=== PATIENT | female | born 1935 | race Caucasian/White ===

== ENCOUNTER 2020-06-09 13:01 | Outpatient (REF) | payer MEDICARE, MEDICAID, SELFPAY | END 2020-06-09 13:02 | disposition home or self-care (01) | LOC: HO.RESP 13:01 | PROVIDERS: PCP Internal Medicine; Visit Provider Internal Medicine | DX: Z13.89 Encounter for screening for other disorder (principal) ==

== ENCOUNTER 2020-06-09 14:13 | Outpatient (REF) | payer MEDICARE, MEDICAID, SELFPAY ==
--- NOTE | 2020-06-09 14:50 | XR_ITS ---
EXAMINATION: XR CHEST CLINICAL INFORMATION: COPD. Atrial fibrillation. Hypertension. COMPARISON: Previous chest x-rays most recent July 2018 TECHNIQUE: 2 views of the chest were obtained. FINDINGS: The cardiac and mediastinal contours are stable. The lungs are clear. The previously identified left lower lobe pneumonia has resolved. There is no pleural effusion or pneumothorax. There is increased thoracic kyphosis and degenerative changes of the spine. There is an old T11 vertebral body compression fracture that appears unchanged. XR/XR chest 2V IMPRESSION: No evidence for acute disease in the chest.
[2020-06-09 15:16] LABS: MANUAL DIFF FLAG NO
[2020-06-09 15:24] LABS: Basophils Percent Auto 0.6 % (0-2); Eosinophils Absolute Auto 0.1 X10*3/uL (0.0-0.4); Eosinophils Percent Auto 1.7 % (0-4); Hematocrit 40.3 % (37-47); Hemoglobin 13.3 g/dl (12.0-16.0); Imm Gran Abs Auto 0.04 X10*3/uL (0.00-0.03); Imm Gran Pct Auto 0.6 % (0.0-0.4); Lymphocytes Absolute Auto 1.8 X10*3/uL (1.2-4.9); Lymphocytes Percent Auto 26.2 % (20-40); Mean Corpuscular Hemoglobin 32.2 pg (27.0-33.0); Mean Corpuscular Volume 97.6 fL (80-98); Mean Platelet Volume 11.4 fL (9.4-12.3); Monocytes Absolute Auto 0.5 X10*3/uL (0.1-1.2); Monocytes Percent Auto 7.7 % (2-11); Neutrophils Absolute Auto 4.5 X10*3/uL (2.0-8.3); Neutrophils Percent Auto 63.2 % (45-73); Platelet Count 218 X10*3/uL (160-400); Red Blood Count 4.13 X10*6/uL (4.20-5.50); Red Cell Distribution Width 12.4 % (11.0-16.0)
[2020-06-09 15:48] LABS: Alanine Aminotransferase 14 U/L (0-31); Albumin Level 4.4 g/dL (3.5-5.0); Alkaline Phosphatase 64 U/L (39-117); Anion Gap 15 (12-20); Aspartate Amino Transferase 20 U/L (5-31); Bilirubin Total 0.9 mg/dL (0.0-1.0); Blood Urea Nitrogen 12 mg/dL (9-16); C Reactive Protein 0.62 mg/dL (< or = 0.50); Calcium 9.2 mg/dL (8.4-10.2); Carbon Dioxide 29 mmol/L (22-29); Chloride 102 mmol/L (96-108); Estimated Glomerular Filt Rate 49; Glucose Random 108 mg/dL (60-115); Potassium 3.9 mmol/l (3.3-5.1); Sodium 142 mmol/L (135-145); Total Protein 7.3 g/dL (6.5-8.0)
[2020-06-09 15:54] LABS: B Type Natriuretic Peptide 64 pg/mL (<100)
[2020-06-09 16:10] LABS: Free T4 (Free Thyroxine) 0.96 ng/dL (0.71-1.85); Thyroid Stimulating Hormone 2.86 uIU/mL (0.32-4.0); Vitamin D 25-OH Total 19.7 ng/mL (>30)
[2020-06-09 16:12] LABS: Vitamin B12 236 pg/mL (200-900)
== END 2020-06-09 14:14 | disposition home or self-care (01) ==
LOC: HO.XRAY 14:13
PROVIDERS: PCP Internal Medicine; Visit Provider Internal Medicine
DX: E03.9 Hypothyroidism, unspecified (principal); R60.9 Edema, unspecified; J44.9 Chronic obstructive pulmonary disease, unspecified; I10 Essential (primary) hypertension; I48.91 Unspecified atrial fibrillation
CPT/HCPCS: 36415; 71046; 80053; 82306; 82607; 83880; 84439; 84443; 85025; 86140

== ENCOUNTER → 2020-07-13 14:59 | Outpatient (BNVA) | payer MEDICARE, MEDICAID, SELFPAY | PROVIDERS: PCP Internal Medicine; Referring Provider Internal Medicine; Visit Provider Internal Medicine | DX: I50.813 Acute on chronic right heart failure (principal); I48.0 Paroxysmal atrial fibrillation; R06.02 Shortness of breath; J44.9 Chronic obstructive pulmonary disease, unspecified; Z79.899 Other long term (current) drug therapy | CPT/HCPCS: 93005; 99202 ==

== ENCOUNTER → 2020-08-03 14:06 | Outpatient (REF) | payer MEDICARE, MEDICAID, SELFPAY ==
--- NOTE | 2020-08-03 14:13 | CA_ITS ---
Transthoracic Echocardiogram Patient (Last, First, Middle): Vane Salinas, Gender: Female Date of : 1935 Age: 85 Procedure Date: 08/03/2020 Procedure Type: Transthoracic Echocardiogram Location: OP Height: 165.1 cm Weight: 86.18 kg BSA: 1.94 m2 Heart Rate: bpm BP: 128 / 80 mmHg Security Team Lead: Referring MD: Dale Villalta MD Symptoms: R06.02 - Shortness of breath Study Quality: Fair ECG Rhythm: Sinus Conclusions: - The left ventricular systolic function is normal. The visually estimated ejection fraction is between 65-70%. - There is mild calcification of the aortic valve. - There is mild mitral annular calcification. - No obvious valvular pathology seen on this study. Findings Left Ventricle Normal left ventricular cavity size. There is mildly increased left ventricular wall thickness. The left ventricular systolic function is normal. The visually estimated ejection fraction is between 65-70%. There is no evidence of regional wall motion abnormalities. E/E prime ratio is between 8 and 15 consistent with indeterminate filling pressures. Evidence suggests grade I (mild) diastolic dysfunction. Right Ventricle Normal right ventricular cavity size and systolic function. Atria The left atrium is normal in size. The right atrium is normal in size. Aortic Valve There is a normal trileaflet aortic valve. There is mild calcification of the aortic valve. There is no aortic valve stenosis. There is no aortic valve regurgitation. Mitral Valve There is mild mitral annular calcification. There is trace mitral valve regurgitation. There is no mitral valve stenosis. Pulmonic Valve The pulmonic valve was not well visualized. Tricuspid Valve There is trace tricuspid valve regurgitation. The pulmonary artery systolic pressure is normal. Great Vessels The aortic annulus, sinuses of valsalva, and asc aorta are normal in size. Venous The inferior vena cava is normal in size and collapses greater than 50% with inspiration. Pericardium/Pleural There is no evidence of pericardial effusion. Prior Study Comparison No significant change compared to prior study dated: 07/21/2018. Recommendations, Care & Conclusions No obvious valvular pathology seen on this study. Measurements 2D Linear Measurements IVSd: 1.12 0.6-0.9/0.6-1.0 cm LVIDd: 3.85 3.9-5.3/4.2-5.9 cm LVIDd Index: 1.98 2.4-3.2/2.2-3.1 cm/m2 LVIDs: 2.29 2.0-3.6 cm LVPWd: 1.16 0.7-1.1 cm Ao Root: 2.60 2.1-3.5 cm LA Diam: 3.50 2.7-3.8/3.0-4.0 cm LAIDs Index: 1.80 1.5-2.3 cm/m2 LV Mass: 180.21 67-162/88-224 g LV Mass Index: 92.89 43-95/49-115 g/m2 LVOT Diam: 2.00 3.0+(-)1.3 cm Mitral Valve MV Pk E: 0.94 MV PK A: 1.29 MV Decel Time: 186.00 E/A: 0.70 E'Lateral: 7.29 E'Medial: 5.77 E/E' Med: 16.30 E/E' Lat: 12.90 PHT: 54.00 MVA PHT: 4.07 Decel [place]: 5.08 Aortic Valve AoV Pk Must[place]ha: 1.58 AoV Mn Mustapha: 1.08 AoV VTI: 0.37 AoV Pk Grad: 10.00 Aov Mn Grad: 5.00 BEN Cont.VTI: 1.97 LVOT LVOT Pk Mustapha: 1.02 LVOT Mn Mustapha: 0.63 LVOT VTI: 0.23 LVOT Pk Grad: 4.00 LVOT Mn Grad: 2.00 LVOT Diam: 2.00 LVOT Area: 3.14 Diastolic Function MV Pk E: 0.94 MV Pk A: 1.29 E/A: 0.70 E'Medial: 5.77 E/E' Med: 16.30 E' Laterial: 7.29 E/E' Lat: 12.90 Tricuspid Valve TR Pk Mustapha: 1.78 TR Pk Grad: 13.00 RA Press: 3.00 RVSP: 16.00 Great Vessels Aorta Ao Root-2D: 2.60 2.0-3.7 cm Pulmonary Valve PV Pk Mustapha: 1.29 Peak PV Grad: 7.00 Updated in Other Vendor System with Status of Final Dale Villalta MD electronically signed on 08/03/2020 4:16:48 PM with status of Final
== END ==
LOC: HO.CARD 14:06
PROVIDERS: Visit Provider Internal Medicine
DX: I50.813 Acute on chronic right heart failure (principal); R06.02 Shortness of breath
CPT/HCPCS: 93306

== ENCOUNTER → 2020-08-20 14:15 | Outpatient (BNVA) | payer MEDICARE, MEDICAID, SELFPAY | PROVIDERS: PCP Internal Medicine; Visit Provider Internal Medicine | DX: I50.813 Acute on chronic right heart failure (principal); I48.0 Paroxysmal atrial fibrillation | CPT/HCPCS: 99212 ==

== ENCOUNTER → 2020-11-30 15:08 | Outpatient (REF) | payer MEDICARE, MEDICAID, SELFPAY ==
--- NOTE | 2020-12-01 09:35 | ECG_ITS ---
Hook-up date: 2020-11-30 15:26:00 Duration: 45:31:00 Test Indications: PAF Medications: [id number] QRS complexes 3369 Ventricular ectopics which represent 1 % of total QRS comp. 755 Supraventricular ectopics which represent <1 % of total QRS comp. * Paced QRS complexs which represent % of total QRS comp. VENTRICULAR ECTOPY 3196 Isolated 68 Bigeminal Cycles 85 Couplets 1 Runs 3 Beats in Runs 3 Beats LONGEST at 109 BPM at 20:37:58 2020-12-01 3 Beats FASTEST at 109 BPM at 20:37:58 2020-12-01 SUPRAVENTRICULAR ECTOPY 710 Isolated 17 Couplets 2 Runs 11 Beats in Runs 7 Beats LONGEST at 170 BPM at 17:52:02 2020-12-01 7 Beats FASTEST at 170 BPM at 17:52:02 2020-12-01 HEART RATES 32 MIN at 03:53:40 2020-12-02 79 AVG 132 MAX at 00:55:19 2020-12-02 LONGEST RR 3.3680 secs at 03:53:32 2020-12-02 S-T LEVELS Channel 1 - 128 mm at 15:26:00 2020-11-30 - 128 mm at 15:26:00 2020-11-30 Channel 2 - 128 mm at 15:26:00 2020-11-30 - 128 mm at 15:26:00 2020-11-30 Channel 3 - 128 mm at 03:44:51 -- - 128 mm at 03:44:51 Basic rhythm Normal sinus rhythm Marked sinus bradycardia to 38 bpm at noght time 3.3 second pause at 3.30 am Frequent Premature ventricular complexes , 2% of total beats One 3 neat patricia of AIVR at 109 bpm No diary submitted Referred By: Dale Villalta Overread By: KELLY KHAN MD
== END ==
LOC: HO.CARD 15:08
PROVIDERS: PCP Internal Medicine; Referring Provider Internal Medicine; Visit Provider Internal Medicine
DX: I48.0 Paroxysmal atrial fibrillation (principal)
CPT/HCPCS: 93226

== ENCOUNTER 2020-12-08 14:24 | Outpatient (REF) | payer MEDICARE, MEDICAID, SELFPAY ==
[2020-12-08 15:36] LABS: MANUAL DIFF FLAG NO
[2020-12-08 15:43] LABS: Basophils Absolute Auto 0.1 X10*3/uL (0.0-0.2); Basophils Percent Auto 0.6 % (0-2); Eosinophils Absolute Auto 0.1 X10*3/uL (0.0-0.4); Eosinophils Percent Auto 1.6 % (0-4); Hematocrit 42.2 % (37-47); Imm Gran Abs Auto 0.03 X10*3/uL (0.00-0.03); Imm Gran Pct Auto 0.4 % (0.0-0.4); Lymphocytes Absolute Auto 2.1 X10*3/uL (1.2-4.9); Lymphocytes Percent Auto 25.6 % (20-40); Mean Corpuscular HGB Conc 33.2 g/dl (31.0-35.0); Mean Corpuscular Hemoglobin 31.4 pg (27.0-33.0); Mean Corpuscular Volume 94.6 fL (80-98); Mean Platelet Volume 10.8 fL (9.4-12.3); Monocytes Absolute Auto 0.7 X10*3/uL (0.1-1.2); Monocytes Percent Auto 8.2 % (2-11); Neutrophils Absolute Auto 5.1 X10*3/uL (2.0-8.3); Neutrophils Percent Auto 63.6 % (45-73); Platelet Count 269 X10*3/uL (160-400); Red Blood Count 4.46 X10*6/uL (4.20-5.50); Red Cell Distribution Width 12.1 % (11.0-16.0); White Blood Count 8.1 X10*3/uL (4.8-10.8)
[2020-12-08 16:02] LABS: Alanine Aminotransferase 15 U/L (0-31); Albumin Level 4.4 g/dL (3.5-5.0); Alkaline Phosphatase 75 U/L (39-117); Anion Gap 17 (12-20); Aspartate Amino Transferase 24 U/L (5-31); Bilirubin Total 0.6 mg/dL (0.0-1.0); Blood Urea Nitrogen 12 mg/dL (9-16); Calcium 10.1 mg/dL (8.4-10.2); Carbon Dioxide 33 mmol/L (22-29); Chloride 96 mmol/L (96-108); Estimated Glomerular Filt Rate 43; Glucose Random 109 mg/dL (60-115); Potassium 3.5 mmol/L (3.3-5.1); Sodium 142 mmol/L (135-145); Total Protein 7.9 g/dL (6.5-8.0)
[2020-12-08 16:03] LABS: Estimated Average Glucose 128 mg/dL; Hemoglobin A1c % 6.1 %
[2020-12-08 16:11] LABS: B Type Natriuretic Peptide 46 pg/mL (<100)
[2020-12-08 16:26] LABS: Free T4 (Free Thyroxine) 0.94 ng/dL (0.71-1.85); Vitamin D 25-OH Total 28.6 ng/mL (>30)
== END 2020-12-08 14:25 | disposition home or self-care (01) ==
LOC: HO.LAB 14:24
PROVIDERS: PCP Internal Medicine; Visit Provider Internal Medicine
DX: R60.9 Edema, unspecified (principal); I10 Essential (primary) hypertension; E03.9 Hypothyroidism, unspecified; E78.00 Pure hypercholesterolemia, unspecified; E55.9 Vitamin D deficiency, unspecified
CPT/HCPCS: 36415; 80053; 82306; 83036; 83880; 84439; 85025

== ENCOUNTER 2021-05-07 12:00 | Inpatient (IN) | payer MEDICARE, MEDICAID, SELFPAY ==
--- NOTE | ~2021-05-07 | US_ITS ---
EXAMINATION: US VENOUS ULTRASOUND WITH DOPPLER LOWER EXTREMITY, RIGHT CLINICAL INFORMATION: Pain, swelling, skin changes. Assess for occult DVT. COMPARISON: Right lower extremity venous ultrasound with Doppler 07/07/2014 TECHNIQUE: Ultrasound of the deep veins is performed from the hip to the lower popliteal vein using compression sonography and color and pulse Doppler assessment. Spectral analysis with color-flow imaging is performed. Patient declined interrogation of the deep veins in the lower leg. FINDINGS: There is normal venous compression and respiratory variation and augmented flow. The visualized common femoral vein, superficial femoral vein, profunda femoral vein, and popliteal vein shows no evidence of deep venous thrombosis. US/US venous duplex LE RT IMPRESSION: 1. No DVT demonstrated in the right lower extremity from common femoral vein to the popliteal vein. 2. Patient declined imaging of the lower leg. If symptoms persist, followup ultrasound in 5 days 7 days might be of value to exclude proximal propagation from a non-visualized calf vein.
--- NOTE | ~2021-05-07 | XR_ITS ---
EXAMINATION: XR CHEST CLINICAL INFORMATION: Shortness of breath COMPARISON: Chest radiographs 06/09/2020, 07/31/2018 TECHNIQUE: AP upright view of the chest was obtained. FINDINGS: There is no hyperinflation. No airspace consolidation are bronchogram. Tapering at the cardiac apex is chronic finding, consistent with areolar tissue. The heart is normal in size. The vascularity is normal. There is no pneumothorax or pleural reaction. The hilar and mediastinal contours and visualized bony structures are similar to prior studies. XR/XR chest 1V IMPRESSION: No acute intrathoracic disease.
--- NOTE | ~2021-05-07 | US_ITS ---
EXAMINATION: US VENOUS ULTRASOUND WITH DOPPLER LOWER EXTREMITY, BILATERAL CLINICAL INFORMATION: Pain and swelling COMPARISON: Previous exam most recent April 2021 TECHNIQUE: Ultrasound of the deep veins is performed from the hip to the calf with compression sonography and color and pulse Doppler assessment. Spectral analysis with color-flow imaging is performed. FINDINGS: RIGHT: There is normal venous compression and respiratory variation and augmented flow. The visualized common femoral vein, superficial femoral vein, profunda femoral vein, and popliteal vein shows no evidence of deep venous thrombosis. The patient refused imaging of the right calf. There is no significant popliteal fossa cyst. LEFT: There is normal venous compression and respiratory variation and augmented flow. The visualized common femoral vein, superficial femoral vein, profunda femoral vein, popliteal vein, and the trifurcation region shows no evidence of deep venous thrombosis. There is no significant popliteal fossa cyst. US/US venous duplex LE BI IMPRESSION: No DVT demonstrated in the bilateral lower extremity. The patient refused imaging of the right calf veins.
--- NOTE | ~2021-05-07 | CT_ITS ---
EXAMINATION: CT HEAD WITHOUT CONTRAST CLINICAL INFORMATION: Sudden hearing losss this morning. COMPARISON: CT had noncontrast 07/20/2018 TECHNIQUE: Contiguous axial imaging was performed from the skull base to vertex without intravenous administration of contrast. This CT examination was performed using dose optimization techniques as appropriate, variously including the following: *Automated exposure control *Adjustment of mA and/or kV according to patient size (this includes techniques or standardized protocols for targeted exams where dose is matched to indication/reason for exam; i.e. extremities or head) *Use of iterative reconstruction technique DLP: 631 mGy-cm FINDINGS: There is no intracranial hemorrhage, hematoma, or extra-axial fluid collection. The ventricles are normal in size. There is no hydrocephalus, edema, or mass effect. The carlos-white matter differentiation appears similar to prior exam. There is some subtle gliosis in the left periventricular white matter in retrospect similar to prior study. There is no visible acute territorial infarct or mass lesion. The calvarium appears intact. There is no pneumocephalus or orbital emphysema. The visualized sinuses and middle ears and mastoid air cells show no significant mucosal thickening. There are no air-fluid levels. CT/CT head/brain wo con IMPRESSION: No acute intracranial abnormality.
--- NOTE | 2021-05-07 12:10 | ED_ITS ---
HPI - SOB/Dyspnea General Chief Complaint: Ear Problems Stated Complaint: diff breathing Time Seen by Provider: 05/07/21 12:09 Source: patient Mode of arrival: EMS Limitations: other (Patient stating she only wants to talk to ENT ) History of Present Illness HPI Narrative: 86 YO female pmhx significant for acute on chronic right sided heart failure, COPD, hypothyrooidism, and paroxysmal atrial fibrillation not on AC therapy presents to the ED with decreased hearing to bilateral ear since 10:30 this am and shortness of breath per EMS. She is not cooperative, and screaming in the hallway that she is 86 years old, and she has been short of breath for 85 years, and she states that she uses Atrovent. She also keeps screaming that she woke up deaf. She is very uncooperative, and not answering many questions. She is not elaborating on anything, and when questioned upon review of systems, she refuses to answer any questions. Uses 2L of oxygen via nasal cannula at home. Not on blood thinners. MD elicited complaint: shortness of breath Pertinent past history: COPD and congestive heart failure Onset (ago): day(s) (1) Timing: constant Severity: moderate Exacerbating factors: exertion Relieving factors: oxygen Known history of: COPD, congestive heart failure and other (afib) Related Data Home Medications Medication Instructions Recorded Confirmed amlodipine 5 mg tablet 5 mg PO BID 07/13/20 05/07/21 furosemide 40 mg tablet 40 mg PO DAILY tab 07/13/20 05/07/21 gabapentin 300 mg capsule 300 mg PO QID cap 07/13/20 05/07/21 ipratropium bromide 17 2 puff INHALATION QID PRN 07/13/20 05/07/21 mcg/actuation HFA aerosol inhaler levothyroxine 50 mcg tablet 50 mcg PO SUTUTHSA@0630 tab 07/13/20 08/20/20 magnesium oxide 400 mg (241.3 mg 400 mg PO BEDTIME 07/13/20 05/07/21 magnesium) tablet simvastatin 10 mg tablet 10 mg PO DAILY 07/13/20 05/07/21 docusate sodium 100 mg capsule 100 mg PO BEDTIME 05/07/21 05/07/21 levothyroxine 50 mcg tablet 25 mcg PO MOWEFR@0630 05/07/21 loratadine 10 mg tablet 10 mg PO DAILY 05/07/21 05/07/21 Allergies Allergy/AdvReac Type Severity Reaction Status Date / Time adhesive tape [Adhesive Tape] Allergy Unknown RASH Verified 11/30/20 15:34 codeine [Codeine] Allergy Unknown SWELLING Verified 11/30/20 15:34 Iodinated Contrast Media Allergy Unknown UNKNOWN Verified 11/30/20 15:34 [IV Dye, Iodine Containing] iodine [Iodine] Allergy Unknown UNKNOWN Verified 11/30/20 15:34 oxycodone [Percocet] Allergy Unknown unknown Verified 11/30/20 15:34 papaya [Papaya] Allergy Unknown HIVES Verified 11/30/20 15:34 pineapple [Pineapple] Allergy Unknown HIVES Verified 11/30/20 15:34 strawberry [Hampton] Allergy Unknown HIVES Verified 11/30/20 15:34 Codeine Phosphate Allergy Unknown unknown Uncoded 11/30/20 15:34 Novocain Allergy Unknown unknown Uncoded 11/30/20 15:34 From Vicodin AdvReac Unknown NAUSEA & Uncoded 11/30/20 15:34 VOMITING Review of Systems Review of Systems: Yes all other systems are reviewed and are negative Constitutional: Constitutional: Reports no additional constitutional complaints, Denies body ache(s), Denies chills, Denies fever(s), Denies headache(s) and Denies weakness Eyes: Eyes: Reports no additional eye complaints and Denies change in vision ENT: Reports system reviewed and no additional complaints, except as documented, Denies Normal hearing present (decreased hearing to b/l ears ), Denies dizziness, Denies headache(s), Denies nasal congestion, Denies nasal discharge and Denies neck pain Cardiovascular: Cardiovascular: Reports no additional cardiovascular complaints, Denies chest pain, Reports leg edema (right lower extremity), Reports dyspnea and Reports dyspnea on exertion Respiratory: Respiratory: Reports no additional respiratory complaints, Denies cough, Reports dyspnea and Reports dyspnea on exertion Gastrointestinal: Gastrointestinal: Reports no additional gastrointestinal complaints, Denies abdominal pain, Denies diarrhea, Denies nausea and Denies vomiting Genitourinary: Genitourinary: Reports no additional female genitourinary complaints and Denies urinary incontinence Musculoskeletal: Musculoskeletal: Reports no additional musculoskeletal complaints, Denies back pain, Denies arthralgias, Denies joint swelling, Denies neck pain, Denies numbness and Denies tingling Integumentary/Breasts: Skin/Breast: Reports system reviewed and no additional complaints, except as docu and Denies rash Neurologic: Reports system reviewed and no additional complaints, except as documented, Denies Normal hearing present (decreased hearing to b/l ears ), Denies Abnormal speech present, Denies dizziness, Denies headache(s), Denies numbness, Denies tingling and Denies weakness PMFSH Past Medical History Attestation statement: The following information was validated with the patient. Source: old records reviewed and nursing notes reviewed Medical History PAF (paroxysmal atrial fibrillation) Family History Family History Father History of heart disease Mother History of heart disease Social History Social History Alcohol intake: never Patient Tobacco Use Status: Never used Tobacco Use of substances other than those prescribed or required for medical reasons: No Advance Directives: No Advance Directives Information Provided: Yes Physical Exam Vital Signs: Vital Signs: Last Vital Signs Pulse 92 05/07/21 17:52 Resp 20 05/07/21 17:52 BP 133/85 05/07/21 17:52 Pulse Ox 95 05/07/21 17:52 Body Mass Index 32.3 Const: General: cooperative, healthy appearing, comfortable and no acute distress Orientation/consciousness: patient oriented x3 Limitations: no limitations HENMT: Head: Yes normal to inspection Ears: hearing grossly normal bi laterally, TM's normal bilaterally, EAC's normal (Mild erythema noted bilaterally.) and other (Gross hearing diminished biaterally. Patient could not hear finger rub b/l) General nose exam: Normal external nose present Face and sinus: Yes normal facial exam Mouth: Normal oral and palatal mucosa present Throat: Yes posterior oropharynx normal Eyes: General: appearance normal, both eyes and all related structures Pupils: Equal, round and reactive pupils present Neck: Neck: Yes normal visual inspection Chest: Chest palpation & inspection: normal inspection of the chest Resp: Effort & Inspection: normal respiratory effort Auscultation: clear to auscultation bilaterally Cardio: Rate: regular rate Rhythm: regular rhythm Peripheral pulses: Peripheral pulses 2+ throughout GI: Inspection: Yes normal to inspection Palpation (GI): Soft to palpation and nontender Auscultation: normal bowel sounds Back/Spine/Pelvis: Thoracic/Lumbar Spine: thoracic and lumbar spine normal to inspection Skin: General skin exam: no rashes or lesions noted Neuro: General: patient oriented x3, no focal motor deficits and normal sensation to monofilament Cranial nerves: Yes Equal, round and reactive pupils present and No Normal hearing present (decreased hearing to b/l ears ) Cognition (Neuro): normal cognition Speech: No Abnormal speech present Gait exam (Neuro): Normal gait present Motor exam (neuro): 5/5 motor strength present throughout Extrem: Other: 3+ Pitting edema to right lower extremity from knee down. Overlying calor and erythema to right lower extremity. 2+ pulses equal and bilateral to lower extremities. Left lower extremity free of erythema, calor, swelling. General: No normal to inspection, Yes full ROM, Yes capillary refill normal, No no joint enlargement, Yes no pedal edema and Yes no calf tenderness Course Reevaluation(s) Reevaluation #1: CBC shows no signs of infection, no anemia, no electrolyte abn ormalities. CXR normal, CT shows no acute findings no mass, COVID negative. Time: 16:22 Reevaluation #2: Able to speak to granddaughter who is at the bedside, who states she is her primary caregiver. She states that lately her grandmother has been extremely short of breath, worse with exertion, to the point where she feels like she is going to pass out, and has to sit in a chair. She states that her grandmother has never used oxygen before, and does not use oxygen at home. She also states that her grandmother is not medication compliant, she is not taking any of her medications regularly, and she only takes them when she think she needs them. She feels as though her grandmother is not safe to go back home, and is requiring extra services at this time. Due to this story obtained from the granddaughter, if patient is hypoxic on room air, a CTA will be done to rule out pulmonary embolism. At this time the RN will ambulate the patient, and record oxygen saturations. Time: 15:34 Reevaluation #3: Respiratory ambulated patient, patient desaturated down to 84% on room air with exertion. She went back up to 96% when placed on 2 L. Given h istory obtained from granddaughter, and this finding a CTA will be ordered to rule out PE. Time: 16:35 Additional Reevaluation(s): 1650- patient states that she has anaphylaxis reaction with IV contrast. For this reason a V/Q scan has been ordered. At this time infection is suspected, blood cultures, and lactic him been ordered. As well as Zosyn. 1800- Patients BP shows signficant improvement after administration of Norvac. Spoke to Kenyatta CUENCA and told her PT case/story will wait to put in admission order until V/Q scan results. Sign out will be given to Virgie pending VQ scan. MDM - SOB/Dyspnea MDM Narrative Medical decision making narrative: 86 yo feamale pmhx significant for r. sided heart faliure,COPD, hypothyroidism and PAF presents to the ED with concerns of sudden hearing loss since 10:30 am today and worsening shortness of breath over the past few days. She uses 2 L of oxygen via nasal canula at home and has been using atrovent for SOB with little to no relief. Vital signs show HTN 171/75, however patient is agitated and she is saturating 96% on 3l. Upon physical exam lungs are clear to auscultation bilaterally, S1 and S2 are appreciated without murmurs. There is 3+ pitting edema to the right lower extremity, with overlying erythema and calor, consistent with cellulitis. Negative Homans sign bilaterally. Bilateral lower extremities 2+ pulses equal bilateral, cap refil <2 seconds. Bilateral tympanic membranes pearly white, with a good cone of light, and all visual landmarks. Bilateral ear canals with mild erythema. No pain with manipulation of bilateral external ears. To note patient had a transthoracic echo on 08/03/2020. Which showed left ventricular systolic function normal. With an ejection fraction between 65-70. It showed mild calcifications in the aortic valve. And mild mitral annular calcification. Plan- EKG, basic labs, BNP, CXR, COVID, Liver, Trop, UA, CT head/brain, US venous duplex of RT lower extremity. Will rule out DVT, ICH, intracranial mass, ACS Medical Records Attestation: I reviewed the patient's medical records. Lab Data Attestation: I reviewed the patient's lab results. Result diagrams: 05/07/21 12:53 05/07/21 12:54 Labs: Lab Results 05/07/21 05/07/21 05/07/21 Range/Units 12:53 12:54 12:54 WBC 8.6 (4.8-10.8) X10*3/uL RBC 4.20 (4.20-5.50) X10*6/uL Hgb 13.4 (12.0-16.0) g/dl Hct 39.9 (37-47) % MCV 95.0 (80-98) fL MCH 31.9 (27.0-33.0) pg MCHC 33.6 (31.0-35.0) g/dl RDW 12.7 (11.0-16.0) % Plt Count 221 (160-400) X10*3/uL MPV 10.8 (9.4-12.3) fL Immature Gran % (Auto) 0.3 (0.0-0.4) % Neut % (Auto) 68.7 (45-73) % Lymph % (Auto) 19.3 L (20-40) % Henderson % (Auto) 7.7 (2-11) % Eos % (Auto) 3.5 (0-4) % Baso % (Auto) 0.5 (0-2) % Lymph # (Auto) 1.7 (1.2-4.9) X10*3/uL Henderson # (Auto) 0.7 (0.1-1.2) X10*3/uL Eos # (Auto) 0.3 (0.0-0.4) X10*3/uL Baso # (Auto) 0.0 (0.0-0.2) X10*3/uL Abs Immat Gran (auto) 0.03 (0.00-0.03) X10*3/uL Absolute Neuts (auto) 5.9 (2.0-8.3) X10*3/uL Absolute Nucleated RBC 0.000 (0.0-0.012) X10*3/uL Nucleated RBC % (auto) 0.0 (0.0-0.2) /100WBC D-Dimer NG/ML Sodium 141 (135-145) mmol/L Potassium 3.5 (3.3-5.1) mmol/L Chloride 101 (96-108) mmol/L Carbon Dioxide 31 H (22-29) mmol/L Anion Gap 13 (12-20) BUN 14 (9-16) mg/dL Creatinine 1.41 H (0.5-1.4) mg/dL Estim Creat Clear Calc 33.1 Estimated GFR 35 Random Glucose 112 (60-115) mg/dL Lactic Acid (0.5-2.0) mmol/L Calcium 9.4 D (8.4-10.2) mg/dL Total Bilirubin 0.6 (0.0-1.0) mg/dL Direct Bilirubin 0.3 (0.0-0.5) mg/dL AST 20 (5-31) U/L ALT 10 (0-31) U/L Alkaline Phosphatase 72 (39-117) U/L Troponin I High Sens (<3.5-17.0) ng/L B-Natriuretic Peptide 45 (<100) pg/mL Total Protein 7.3 (6.5-8.0) g/dL Albumin 4.1 (3.5-5.0) g/dL COVID-19 (GABE) (Negative) COVID-19 Clin Com 05/07/21 05/07/21 05/07/21 Range/Units 12:54 15:42 15:45 WBC (4.8-10.8) X10*3/uL RBC (4.20-5.50) X10*6/uL Hgb (12.0-16.0) g/dl Hct (37-47) % MCV (80-98) fL MCH (27.0-33.0) pg MCHC (31.0-35.0) g/dl RDW (11.0-16.0) % Plt Count (160-400) X10*3/uL MPV (9.4-12.3) fL Immature Gran % (Auto) (0.0-0.4) % Neut % (Auto) (45-73) % Lymph % (Auto) (20-40) % Henderson % (Auto) (2-11) % Eos % (Auto) (0-4) % Baso % (Auto) (0-2) % Lymph # (Auto) (1.2-4.9) X10*3/uL Henderson # (Auto) (0.1-1.2) X10*3/uL Eos # (Auto) (0.0-0.4) X10*3/uL Baso # (Auto) (0.0-0.2) X10*3/uL Abs Immat Gran (auto) (0.00-0.03) X10*3/uL Absolute Neuts (auto) (2.0-8.3) X10*3/uL Absolute Nucleated RBC (0.0-0.012) X10*3/uL Nucleated RBC % (auto) (0.0-0.2) /100WBC D-Dimer NG/ML Sodium (135-145) mmol/L Potassium (3.3-5.1) mmol/L Chloride (96-108) mmol/L Carbon Dioxide (22-29) mmol/L Anion Gap (12-20) BUN (9-16) mg/dL Creatinine (0.5-1.4) mg/dL Estim Creat Clear Calc Estimated GFR Random Glucose (60-115) mg/dL Lactic Acid (0.5-2.0) mmol/L Calcium (8.4-10.2) mg/dL Total Bilirubin (0.0-1.0) mg/dL Direct Bilirubin (0.0-0.5) mg/dL AST (5-31) U/L ALT (0-31) U/L Alkaline Phosphatase (39-117) U/L Troponin I High Sens 9.5 9.0 (<3.5-17.0) ng/L B-Natriuretic Peptide (<100) pg/mL Total Protein (6.5-8.0) g/dL Albumin (3.5-5.0) g/dL COVID-19 (GABE) Negative (Negative) COVID-19 Clin Com See Note 05/07/21 05/07/21 Range/Units 17:24 17:24 WBC (4.8-10.8) X10*3/uL RBC (4.20-5.50) X10*6/uL Hgb (12.0-16.0) g/dl Hct (37-47) % MCV (80-98) fL MCH (27.0-33.0) pg MCHC (31.0-35.0) g/dl RDW (11.0-16.0) % Plt Count (160-400) X10*3/uL MPV (9.4-12.3) fL Immature Gran % (Auto) (0.0-0.4) % Neut % (Auto) (45-73) % Lymph % (Auto) (20-40) % Henderson % (Auto) (2-11) % Eos % (Auto) (0-4) % Baso % (Auto) (0-2) % Lymph # (Auto) (1.2-4.9) X10*3/uL Henderson # (Auto) (0.1-1.2) X10*3/uL Eos # (Auto) (0.0-0.4) X10*3/uL Baso # (Auto) (0.0-0.2) X10*3/uL Abs Immat Gran (auto) (0.00-0.03) X10*3/uL Absolute Neuts (auto) (2.0-8.3) X10*3/uL Absolute Nucleated RBC (0.0-0.012) X10*3/uL Nucleated RBC % (auto) (0.0-0.2) /100WBC D-Dimer 492 NG/ML Sodium (135-145) mmol/L Potassium (3.3-5.1) mmol/L Chloride (96-108) mmol/L Carbon Dioxide (22-29) mmol/L Anion Gap (12-20) BUN (9-16) mg/dL Creatinine (0.5-1.4) mg/dL Estim Creat Clear Calc Estimated GFR Random Glucose (60-115) mg/dL Lactic Acid 1.4 (0.5-2.0) mmol/L Calcium (8.4-10.2) mg/dL Total Bilirubin (0.0-1.0) mg/dL Direct Bilirubin (0.0-0.5) mg/dL AST (5-31) U/L ALT (0-31) U/L Alkaline Phosphatase (39-117) U/L Troponin I High Sens (<3.5-17.0) ng/L B-Natriuretic Peptide (<100) pg/mL Total Protein (6.5-8.0) g/dL Albumin (3.5-5.0) g/dL COVID-19 (GABE) (Negative) COVID-19 Clin Com Imaging Data Chest x-ray: Attestation: I personally reviewed and interpreted this imaging study as follows: Radiologist's impression: FINDINGS: There is no hyperinflation. No airspace consolidation are bronchogram. Tapering at the cardiac apex is chronic finding, consistent with areolar tissue. The heart is normal in size. The vascularity is normal. There is no pneumothorax or pleural reaction. The hilar and mediastinal contours and visualized bony structures are similar to prior studies. XR/XR chest 1V IMPRESSION: No acute intrathoracic disease. Venous US: Attestation: I personally reviewed and interpreted this imaging study as follows: Radiologist's impression: US/US venous duplex LE RT IMPRESSION: 1. No DVT demonstrated in the right lower extremity from common femoral vein to the popliteal vein.? ? 2. Patient declined imaging of the lower leg. If symptoms persist, followup ultrasound in 5 days 7 days might be of value to exclude proximal propagation from a non-visualized calf vein. ? CT scan - head: Attestation: I personally reviewed and interpreted this imaging study as follows: Radiologist's impression: FINDINGS: There is no intracranial hemorrhage, hematoma, or extra-axial fluid collection.? The ventricles are normal in size. There is no hydrocephalus, edema, or mass effect.? The carlos-white matter differentiation appears similar to prior exam. There is some subtle gliosis in the left periventricular white matter in retrospect similar to prior study.? There is no visible acute territorial infarct or mass lesion. The calvarium appears intact. There is no pneumocephalus or orbital emphysema.? The visualized sinuses and middle ears and mastoid air cells show no significant mucosal thickening. There are no air-fluid levels. CT/CT head/brain wo con IMPRESSION: No acute intracranial abnormality. ? ECG Data Attestation: I personally reviewed and interpreted this ECG as follows: ECG interpretation date: 05/07/21 ECG interpretation time: 13:01 Prior ECG tracings: available for review Interpretation: Vent rate 90, IA normal, QRS normal, QT/QTC. EKG showns NSR, no DEVIN or inversions, no t wave inversions, no acute ischemia. No significant changes when compared to 07/30/2018. Discharge Plan Discharge Clinical Impression: Hypoxia, Shortness of breath, Cellulitis Patient Disposition: Admitted As Inpatient Prescriptions: No Action docusate sodium 100 mg Capsule 100 mg PO BEDTIME RF: 0 loratadine 10 mg Tablet 10 mg PO DAILY RF: 0 levothyroxine 50 mcg tablet 25 mcg PO MOWEFR@0630 RF: 0 simvastatin 10 mg tablet 10 mg PO DAILY RF: 0 amlodipine 5 mg tablet 5 mg PO BID RF: 0 levothyroxine 50 mcg tablet 50 mcg PO SUTUTHSA@0630 RF: 0 Atrovent HFA 17 mcg/actuation HFA aerosol inhaler 2 puff inhalation QID PRN (Reason: Shortness Of Breath) RF: 0 gabapentin 300 mg capsule 300 mg PO QID RF: 0 magnesium oxide 400 mg (241.3 mg magnesium) tablet 400 mg PO BEDTIME RF: 0 furosemide 40 mg tablet 40 mg PO DAILY RF: 0
[2021-05-07 12:13] VITALS: BMI 32.3
[2021-05-07 12:28] VITALS: BP 171/75; PULSE 85; RESP 14; O2SAT 96
--- NOTE | 2021-05-07 12:37 | ECG_ITS ---
Test Reason : SOB Blood Pressure : / mmHG Vent. Rate : 090 BPM Atrial Rate : 090 BPM P-R Int : 192 ms QRS Dur : 074 ms QT Int : 372 ms P-R-T Axes : 059 014 078 degrees QTc Int : 455 ms Normal sinus rhythm Low voltage QRS RSR' or QR pattern in V1 suggests right ventricular conduction delay Abnormal ECG No significant changes seen Referred By: Marcela Sneed Electronically Signed By:JANETH MEJIA MD
[2021-05-07 12:58] LABS: MANUAL DIFF FLAG NO
[2021-05-07 13:00] LABS: Basophils Percent Auto 0.5 % (0-2); Eosinophils Absolute Auto 0.3 X10*3/uL (0.0-0.4); Eosinophils Percent Auto 3.5 % (0-4); Hematocrit 39.9 % (37-47); Hemoglobin 13.4 g/dl (12.0-16.0); Imm Gran Abs Auto 0.03 X10*3/uL (0.00-0.03); Imm Gran Pct Auto 0.3 % (0.0-0.4); Lymphocytes Absolute Auto 1.7 X10*3/uL (1.2-4.9); Lymphocytes Percent Auto 19.3 % (20-40); Mean Corpuscular HGB Conc 33.6 g/dl (31.0-35.0); Mean Corpuscular Hemoglobin 31.9 pg (27.0-33.0); Mean Platelet Volume 10.8 fL (9.4-12.3); Monocytes Absolute Auto 0.7 X10*3/uL (0.1-1.2); Monocytes Percent Auto 7.7 % (2-11); Neutrophils Absolute Auto 5.9 X10*3/uL (2.0-8.3); Neutrophils Percent Auto 68.7 % (45-73); Platelet Count 221 X10*3/uL (160-400); Red Cell Distribution Width 12.7 % (11.0-16.0); White Blood Count 8.6 X10*3/uL (4.8-10.8)
[2021-05-07 13:17] LABS: Alanine Aminotransferase 10 U/L (0-31); Albumin Level 4.1 g/dL (3.5-5.0); Alkaline Phosphatase 72 U/L (39-117); Anion Gap 13 (12-20); Aspartate Amino Transferase 20 U/L (5-31); Bilirubin Direct 0.3 mg/dL (0.0-0.5); Bilirubin Total 0.6 mg/dL (0.0-1.0); Blood Urea Nitrogen 14 mg/dL (9-16); Calcium 9.4 mg/dL (8.4-10.2); Carbon Dioxide 31 mmol/L (22-29); Chloride 101 mmol/L (96-108); Creatinine Clr Calc Pharmacy 33.1; Estimated Glomerular Filt Rate 35; Glucose Random 112 mg/dL (60-115); Potassium 3.5 mmol/L (3.3-5.1); Sodium 141 mmol/L (135-145); Total Protein 7.3 g/dL (6.5-8.0)
[2021-05-07 13:19] LABS: B Type Natriuretic Peptide 45 pg/mL (<100)
[2021-05-07 13:20] LABS: Troponin-I High Sensitivity 9.5 ng/L (<3.5-17.0)
[2021-05-07 16:15] LABS: COVID-19 Test Negative (Negative); IDNOW Serial# 9DD0AD1C
[2021-05-07 16:35] VITALS: O2SAT 84
[2021-05-07 16:57] VITALS: BP 228/105; PULSE 101
[2021-05-07] MEDS: amLODIPine Besylate 5 MG TABLET PO ×2 (16:57→20:43)
[2021-05-07] MEDS: Gabapentin 300 MG CAPSULE PO ×2 (16:58→20:46)
[2021-05-07] MEDS: Furosemide 40 MG TABLET PO (16:58)
[2021-05-07 17:41] LABS: D Dimer 492 NG/ML
[2021-05-07 17:43] LABS: Lactic Acid 1.4 mmol/L (0.5-2.0)
--- NOTE | 2021-05-07 17:43 | PHA.MEDREC ---
Pharmacy Consult ? Medication Reconciliation Pharmacy has completed the medication reconciliation. Patient reports taking levothyroxine bid, i called pharmacy and got directions, she is very confused. She hasnt filled levothyroxine since 06/06/20. Will notify
[2021-05-07] MEDS: Piperacillin Sodium/Tazobactam 3.375 GM in 0.9 % Sodium Chloride 50 ML IV (17:45)
[2021-05-07 17:52] VITALS: BP 133/85; PULSE 92; RESP 20; O2SAT 95
--- NOTE | 2021-05-07 19:19 | P.HPHOSP_ITS ---
History of Present Illness Date of Service: 05/07/21 Chief Complaint: Decreased hearing 86-year-old female with a past medical history of hypertension, hyperlipidemia, CHF, AFib-not on anticoagulation, hypothyroidism presented to the hospital with a chief complaint of shortness of breath/decreased hearing. Patient is a poor historian. Spoke to the patient's granddaughter at bedside as well. Reportedly patient called the granddaughter complaining of she cannot hear; at the time of my interview patient is able to understand my words and replies appropriately. Complains of shortness of breath. Also complains of right lower extremity pain redness and swelling which has been there for a long time; Patient denies any chest pain palpitations lightheadedness or dizziness. Denies any numbness tingling or focal weakness. Denies any nausea vomiting or diarrhea. Denies any urine symptoms. Review of all other systems is negative except mentioned above ER course: Per ER team patient on presentation has nonfocal examination noted to have 2+ pitting edema; patient on ambulation saturating at 84%; subsequently placed on nasal cannula; EKG was nonischemic; troponins x2 negative; lab showed mild elevation in creatinine; right lower extremity venous duplex negative for DVT. Plan to obtain V/Q scan-unable to do it; patient was given empiric dose of Lovenox; admitted to the hospital for further management. [facility] Medical History PAF (paroxysmal atrial fibrillation) Family History Father History of heart disease Mother History of heart disease Pertinent family history: As mentioned above Social History Alcohol intake: never Patient Tobacco Use Status: Never used Tobacco Use of substances other than those prescribed or required for medical reasons: No Advance Directives: No Advance Directives Information Provided: Yes Meds Allergies Allergy/AdvReac Type Severity Reaction Status Date / Time adhesive tape [Adhesive Tape] Allergy Unknown RASH Verified 11/30/20 15:34 codeine [Codeine] Allergy Unknown SWELLING Verified 11/30/20 15:34 Iodinated Contrast Media Allergy Unknown UNKNOWN Verified 11/30/20 15:34 [IV Dye, Iodine Containing] iodine [Iodine] Allergy Unknown UNKNOWN Verified 11/30/20 15:34 oxycodone [Percocet] Allergy Unknown unknown Verified 11/30/20 15:34 papaya [Papaya] Allergy Unknown HIVES Verified 11/30/20 15:34 pineapple [Pineapple] Allergy Unknown HIVES Verified 11/30/20 15:34 strawberry [Flora] Allergy Unknown HIVES Verified 11/30/20 15:34 Codeine Phosphate Allergy Unknown unknown Uncoded 11/30/20 15:34 Novocain Allergy Unknown unknown Uncoded 11/30/20 15:34 From Vicodin AdvReac Unknown NAUSEA & Uncoded 11/30/20 15:34 VOMITING Active Medications: Current Medications Acetaminophen (Acetaminophen 325 Mg Tablet) 650 mg PO Q6H PRN PRN Reason: Pain, Mild (Pain Scale 1-3) Amlodipine Besylate (Amlodipine Besylate 5 Mg Tablet) 5 mg PO BID [facility]; Protocol Docusate Sodium (Docusate Sodium 100 Mg Capsule) 100 mg PO BEDTIME [facility] Gabapentin (Gabapentin 300 Mg Capsule) 300 mg PO QID [facility] Ipratropium [place] (Ipratropium [place] 1 Puff/17 Mcg Inhaler) 2 puff INHALE QID PRN PRN Reason: Shortness Of Breath Loratadine (Loratadine 10 Mg Tablet) 10 mg PO DAILY [facility] Magnesium Oxide (Magnesium Oxide 400 Mg Tablet) 400 mg PO BEDTIME [facility] Melatonin (Melatonin 3 Mg Tablet) 6 mg PO BEDTIME PRN PRN Reason: Insomnia Non-Formulary Medication (Simvastatin) 10 mg PO DAILY [facility] Pharmacy Consult (Consult Rx Perform Med Rec) 1 each MISCELLANE ONCE PRN PRN Reason: Consult order Senna (Sennosides 8.6 Mg Tablet) 17.2 mg PO BEDTIME PRN PRN Reason: Constipation Sodium Chloride (0.9 % Sodium Chloride Flush 3 Ml Syringe) 3 ml IVFLUSH QSHIFT [facility] Home Medications Medication Instructions Recorded Confirmed Last Taken Type amlodipine 5 mg tablet 5 mg PO BID 07/13/20 05/07/21 05/07/21 History furosemide 40 mg tablet 40 mg PO DAILY tab 07/13/20 05/07/21 05/07/21 History gabapentin 300 mg capsule 300 mg PO QID cap 07/13/20 05/07/21 05/07/21 History ipratropium bromide 17 2 puff INHALATION QID PRN 07/13/20 05/07/21 Unknown History mcg/actuation HFA aerosol inhaler levothyroxine 50 mcg tablet 50 mcg PO LUTHERUTHSA@0630 tab 07/13/20 08/20/20 Unknown History magnesium oxide 400 mg (241.3 mg 400 mg PO BEDTIME 07/13/20 05/07/21 Unknown History magnesium) tablet simvastatin 10 mg tablet 10 mg PO DAILY 07/13/20 05/07/21 Unknown History docusate sodium 100 mg capsule 100 mg PO BEDTIME 05/07/21 05/07/21 Unknown History levothyroxine 50 mcg tablet 25 mcg PO MOWEFR@0630 05/07/21 Unknown History loratadine 10 mg tablet 10 mg PO DAILY 05/07/21 05/07/21 Unknown History Physical Exam Vital Signs and Narrative: Vital Signs: Last Vital Signs Pulse 92 05/07/21 17:52 Resp 20 05/07/21 17:52 BP 133/85 05/07/21 17:52 Pulse Ox 95 05/07/21 17:52 Body Mass Index 32.3 Gen: Appears be in no acute distress; breathing comfortably on supplemental oxygen via nasal cannula. Not in respiratory distress. Speaks in full sentences. HEENT: NCAT, Moist mucosa. Pulmonary: Coarse breath sounds CVS: Normal S1-S2 Abdomen: BS+, Soft, Nontender Extremities: Warm well perfused; 2+ pitting edema bilaterally; right lower extremity wound tender and erythematous on the like; no fluctuance or discharge noted. Neuro: Alert and awake. Grossly nonfocal Results Labs CBC and Chem 7: 05/07/21 12:53 05/07/21 12:54 Labs: Laboratory Results - last 24 hr 05/07/21 05/07/21 05/07/21 12:53 12:54 12:54 MCV 95.0 MCH 31.9 MCHC 33.6 RDW 12.7 Plt Count 221 MPV 10.8 Immature Gran % (Auto) 0.3 Neut % (Auto) 68.7 Lymph % (Auto) 19.3 L Braxton % (Auto) 7.7 Eos % (Auto) 3.5 Baso % (Auto) 0.5 Lymph # (Auto) 1.7 Braxton # (Auto) 0.7 Eos # (Auto) 0.3 Baso # (Auto) 0.0 Abs Immat Gran (auto) 0.03 Absolute Neuts (auto) 5.9 Absolute Nucleated RBC 0.000 Nucleated RBC % (auto) 0.0 D-Dimer Anion Gap 13 Estim Creat Clear Calc 33.1 Estimated GFR 35 Random Glucose 112 Lactic Acid Calcium 9.4 D Total Bilirubin 0.6 Direct Bilirubin 0.3 AST 20 ALT 10 Alkaline Phosphatase 72 Troponin I High Sens B-Natriuretic Peptide 45 Total Protein 7.3 Albumin 4.1 COVID-19 (GABE) COVID-19 Clin Com 05/07/21 05/07/21 05/07/21 12:54 15:42 15:45 MCV MCH MCHC RDW Plt Count MPV Immature Gran % (Auto) Neut % (Auto) Lymph % (Auto) Braxton % (Auto) Eos % (Auto) Baso % (Auto) Lymph # (Auto) Braxton # (Auto) Eos # (Auto) Baso # (Auto) Abs Immat Gran (auto) Absolute Neuts (auto) Absolute Nucleated RBC Nucleated RBC % (auto) D-Dimer Anion Gap Estim Creat Clear Calc Estimated GFR Random Glucose Lactic Acid Calcium Total Bilirubin Direct Bilirubin AST ALT Alkaline Phosphatase Troponin I High Sens 9.5 9.0 B-Natriuretic Peptide Total Protein Albumin COVID-19 (GABE) Negative COVID-19 [employer] Com See Note 05/07/21 05/07/21 17:24 17:24 MCV MCH MCHC RDW Plt Count MPV Immature Gran % (Auto) Neut % (Auto) Lymph % (Auto) Braxton % (Auto) Eos % (Auto) Baso % (Auto) Lymph # (Auto) Braxton # (Auto) Eos # (Auto) Baso # (Auto) Abs Immat Gran (auto) Absolute Neuts (auto) Absolute Nucleated RBC Nucleated RBC % (auto) D-Dimer 492 Anion Gap Estim Creat Clear Calc Estimated GFR Random Glucose Lactic Acid 1.4 Calcium Total Bilirubin Direct Bilirubin AST ALT Alkaline Phosphatase Troponin I High Sens B-Natriuretic Peptide Total Protein Albumin COVID-19 (GABE) COVID-19 Clin Com Imaging Radiologist's Impressions: Impressions Chest X-Ray 05/07/21 12:38 IMPRESSION: No acute intrathoracic disease. Head CT 05/07/21 12:38 IMPRESSION: No acute intracranial abnormality. Venous Duplex 05/07/21 12:38 IMPRESSION: 1. No DVT demonstrated in the right lower extremity from common femoral vein to the popliteal vein. 2. Patient declined imaging of the lower leg. If symptoms persist, followup ultrasound in 5 days 7 days might be of value to exclude proximal propagation from a non-visualized calf vein. Assessment and Plan (1) Hypoxia: Status: Acute (2) Shortness of breath: Status: Acute (3) Cellulitis: Qualifiers: Laterality: right Site of cellulitis: extremity Site of cellulitis of extremity: lower extremity Qualified Code(s): L03.115 - Cellulitis of right lower limb Status: Acute (4) Acute on chronic right heart failure: Status: Acute (5) RONAK (acute kidney injury): Status: Acute 86-year-old female with a past medical history of hypertension, hyperlipidemia, CHF, AFib-not on anticoagulation, hypothyroidism presented to the hospital with a chief complaint of shortness of breath/decreased hearing. Shortness of breath: Patient is mildly coarse breath sounds. Nebulizations p.r.n.. Troponins x2 negative. EKG nonischemic. Chest x-ray showed no Cardiopulmonary process PE was in the differential; CT was done was not on patient was allergic to contrast; tried V/Q scan-patient refused V/Q scan saying she is allergic to the dye. Patient given empiric Lovenox Will defer to the a.m. team to follow up Mild acute on chronic CHF: Patient noted 2+ pitting edema. Patient given IV Lasix in the ER. To be continued on Lasix based on renal function. chest pain: pt complained chest pain around 6:10 AM; EKG non ischemic; Sent troponins- pending. (will signout to day hospitalist) cardiology consult Mild RONAK: Monitor renal function while diuresing. Avoid nephrotoxins. Right lower extremity cellulitis: Right lower extremity venous duplex was negative for DVT. Study was incomplete as patient declined. Will repeat study Continue ceftriaxone Hypertensive urgency: Patient blood pressure at 1 time and up to 228/105; received amlodipine and is sick in the ER. Blood pressure improved to 133/85 at the time of my interview. Will continue to monitor. Continue home amlodipine. Decrease hearing: Patient uncooperative on examination. Grossly nonfocal. CT head showed no acute findings. Neurology consult for further recommendations. History of hypothyroidism: Will keep the patient on levothyroxine 50 mcg; will defer to the a.m. team to confirm the levothyroxine with the PCP and adjust accordingly. DVT prophylaxis: Patient received Lovenox in the ER. Code status: Full code-discussed with the family at bedside Quality Stroke Does the patient have a stroke diagnosis?: No VTE Prior VTE?: No VTE Risk Level:: Medical - moderate - high VTE Device Contraindication: Treatment Not Indicated VTE Drug Contraindication: Treatment Not Indicated
[2021-05-07] MEDS: cefTRIAXone sodium 1 GM in 0.9 % Sodium Chloride 50 ML IV (20:00)
--- NOTE | 2021-05-07 20:00 | PC.NURSE ---
patient refusing VQ scan, hospitalist made aware.
[2021-05-07] MEDS: Acetaminophen 325 MG TABLET 650 MG PO (20:29)
[2021-05-07 20:43] VITALS: BP 202/95; PULSE 97
[2021-05-07] MEDS: Magnesium Oxide 400 MG TABLET PO (20:43)
[2021-05-07] MEDS: Docusate Sodium 100 MG CAPSULE PO (20:43)
[2021-05-07 20:46] VITALS: BP 179/84
[2021-05-07 20:49] LABS: Troponin-I High Sensitivity 14.6 ng/L (<3.5-17.0)
[2021-05-08] VITALS: BP 179/84; PULSE 82; RESP 18; TEMP 35.9; O2SAT 95
--- NOTE | 2021-05-08 | ECG_ITS ---
Test Reason : CHEST PAIN Blood Pressure : / mmHG Vent. Rate : 080 BPM Atrial Rate : 080 BPM P-R Int : 176 ms QRS Dur : 064 ms QT Int : 382 ms P-R-T Axes : 056 002 072 degrees QTc Int : 440 ms Poor data quality Sinus rhythm with occasional Premature ventricular complexes Nonspecific ST and T wave abnormality Abnormal ECG ST more depressed Lateral leads Premature ventricular complexes are new Referred By: Generic ED Physician Electronically Signed By:JANETH MEJIA MD
[2021-05-08] MEDS: Gabapentin 300 MG CAPSULE PO (03:27)
[2021-05-08 03:51] VITALS: BP 173/74; PULSE 76; RESP 20; TEMP 36.4; O2SAT 98
[2021-05-08] MEDS: Levothyroxine Sodium 50 MCG TABLET PO (06:13)
[2021-05-08 06:14] VITALS: BP 178/80; PULSE 82; RESP 20; O2SAT 98
[2021-05-08] MEDS: Acetaminophen 325 MG TABLET 650 MG PO (06:26)
[2021-05-08 06:36] LABS: MANUAL DIFF FLAG NO
[2021-05-08 06:37] LABS: Basophils Absolute Auto 0.1 X10*3/uL (0.0-0.2); Basophils Percent Auto 0.7 % (0-2); Eosinophils Absolute Auto 0.4 X10*3/uL (0.0-0.4); Hemoglobin 15.1 g/dl (12.0-16.0); Imm Gran Abs Auto 0.03 X10*3/uL (0.00-0.03); Imm Gran Pct Auto 0.4 % (0.0-0.4); Lymphocytes Absolute Auto 2.2 X10*3/uL (1.2-4.9); Lymphocytes Percent Auto 25.7 % (20-40); Mean Corpuscular HGB Conc 33.6 g/dl (31.0-35.0); Mean Corpuscular Hemoglobin 31.7 pg (27.0-33.0); Mean Corpuscular Volume 94.3 fL (80-98); Monocytes Absolute Auto 0.8 X10*3/uL (0.1-1.2); Monocytes Percent Auto 9.1 % (2-11); Neutrophils Percent Auto 59.1 % (45-73); Platelet Count 230 X10*3/uL (160-400); Red Blood Count 4.77 X10*6/uL (4.20-5.50); Red Cell Distribution Width 12.7 % (11.0-16.0); White Blood Count 8.4 X10*3/uL (4.8-10.8)
[2021-05-08 06:51] LABS: Anion Gap 19 (12-20); Blood Urea Nitrogen 17 mg/dL (9-16); Calcium 9.5 mg/dL (8.4-10.2); Carbon Dioxide 24 mmol/L (22-29); Chloride 98 mmol/L (96-108); Creatinine Clr Calc Pharmacy 29.5; Estimated Glomerular Filt Rate 31; Glucose Random 115 mg/dL (60-115); Potassium 3.2 mmol/L (3.3-5.1); Sodium 138 mmol/L (135-145)
[2021-05-08 06:57] LABS: Troponin-I High Sensitivity 10.7 ng/L (<3.5-17.0)
--- NOTE | 2021-05-08 09:13 | PM.NEUROCN ---
History of Present Illness Data of Consult Service Date: 05/08/21 Primary Care Provider: Jayjay Sood MD [facility] Reason for consult: Hearing impairment 86 years old woman who came to hospital with complaints of shortness of breath and stating that she could not hear. She said that everything was quite. There was no recent ear pain infection or headache. There was no focal weakness or numbness or visual symptoms. Review of Systems Review of Systems: Somewhat difficult historian but she has complained of shortness of breath PMFSH Past Medical History Medical History PAF (paroxysmal atrial fibrillation) Family History Family History Father History of heart disease Mother History of heart disease Social History Social History Alcohol intake: never Patient Tobacco Use Status: Never used Tobacco Use of substances other than those prescribed or required for medical reasons: No Advance Directives: No Advance Directives Information Provided: Yes Meds Allergies Allergy/AdvReac Type Severity Reaction Status Date / Time adhesive tape [Adhesive Tape] Allergy Unknown RASH Verified 11/30/20 15:34 codeine [Codeine] Allergy Unknown SWELLING Verified 11/30/20 15:34 Iodinated Contrast Media Allergy Unknown UNKNOWN Verified 11/30/20 15:34 [IV Dye, Iodine Containing] iodine [Iodine] Allergy Unknown UNKNOWN Verified 11/30/20 15:34 oxycodone [Percocet] Allergy Unknown unknown Verified 11/30/20 15:34 papaya [Papaya] Allergy Unknown HIVES Verified 11/30/20 15:34 pineapple [Pineapple] Allergy Unknown HIVES Verified 11/30/20 15:34 strawberry [[place]] Allergy Unknown HIVES Verified 11/30/20 15:34 Codeine Phosphate Allergy Unknown unknown Uncoded 11/30/20 15:34 Novocain Allergy Unknown unknown Uncoded 11/30/20 15:34 From Vicodin AdvReac Unknown NAUSEA & Uncoded 11/30/20 15:34 VOMITING Active Medications: Current Medications Acetaminophen (Acetaminophen 325 Mg Tablet) 650 mg PO Q6H PRN PRN Reason: Pain, Mild (Pain Scale 1-3) Last Admin: 05/08/21 06:26 Dose: 650 mg Documented by: Amlodipine Besylate (Amlodipine Besylate 5 Mg Tablet) 5 mg PO BID [facility]; Protocol Last Admin: 05/07/21 20:43 Dose: 5 mg Documented by: Atorvastatin Calcium (Atorvastatin Calcium 10 Mg Tablet) 10 mg PO BEDTIME [facility] Docusate Sodium (Docusate Sodium 100 Mg Capsule) 100 mg PO BEDTIME [facility] Last Admin: 05/07/21 20:43 Dose: 100 mg Documented by: Gabapentin (Gabapentin 300 Mg Capsule) 300 mg PO QID [facility] Last Admin: 05/08/21 03:27 Dose: 300 mg Documented by: Ceftriaxone Sodium 1 gm/ (Sodium Chloride) 50 mls @ 100 mls/hr IV Q24H [facility] Last Infusion: 05/07/21 21:15 Dose: Infused Documented by: Ipratropium [place] (Ipratropium [place] 1 Puff/17 Mcg Inhaler) 2 puff INHALE QID PRN PRN Reason: Shortness Of Breath Levothyroxine Sodium (Levothyroxine Sodium 50 Mcg Tablet) 50 mcg PO DAILY@0600 [facility] Last Admin: 05/08/21 06:13 Dose: 50 mcg Documented by: Loratadine (Loratadine 10 Mg Tablet) 10 mg PO DAILY [facility] Magnesium Oxide (Magnesium Oxide 400 Mg Tablet) 400 mg PO BEDTIME [facility] Last Admin: 05/07/21 20:43 Dose: 400 mg Documented by: Melatonin (Melatonin 3 Mg Tablet) 6 mg PO BEDTIME PRN PRN Reason: Insomnia Nitroglycerin (Nitroglycerin 0.4 Mg Tab.Subl) 0.4 mg SUBLINGUAL Q5MX3 PRN PRN Reason: Chest Pain Pharmacy Consult (Consult Rx Perform Med Rec) 1 each MISCELLANE ONCE PRN PRN Reason: Consult order Senna (Sennosides 8.6 Mg Tablet) 17.2 mg PO BEDTIME PRN PRN Reason: Constipation Sodium Chloride (0.9 % Sodium Chloride Flush 3 Ml Syringe) 3 ml IVFLUSH QSHIFT [facility] Last Admin: 05/08/21 07:39 Dose: Not Given Documented by: Home Medications Medication Instructions Recorded Confirmed Last Taken Type amlodipine 5 mg tablet 5 mg PO BID 07/13/20 05/07/21 05/07/21 History furosemide 40 mg tablet 40 mg PO DAILY tab 07/13/20 05/07/21 05/07/21 History gabapentin 300 mg capsule 300 mg PO QID cap 07/13/20 05/07/21 05/07/21 History ipratropium bromide 17 2 puff INHALATION QID PRN 07/13/20 05/07/21 Unknown History mcg/actuation HFA aerosol inhaler levothyroxine 50 mcg tablet 50 mcg PO SUTUTHSA@0630 tab 07/13/20 08/20/20 Unknown History magnesium oxide 400 mg (241.3 mg 400 mg PO BEDTIME 07/13/20 05/07/21 Unknown History magnesium) tablet simvastatin 10 mg tablet 10 mg PO DAILY 07/13/20 05/07/21 Unknown History docusate sodium 100 mg capsule 100 mg PO BEDTIME 05/07/21 05/07/21 Unknown History levothyroxine 50 mcg tablet 25 mcg PO MOWEFR@0630 05/07/21 Unknown History loratadine 10 mg tablet 10 mg PO DAILY 05/07/21 05/07/21 Unknown History Physical Exam Vital Signs: Vital Signs: Last Vital Signs Temp 97.6 F 05/08/21 03:51 Pulse 82 05/08/21 06:14 Resp 20 05/08/21 06:14 BP 178/80 H 05/08/21 06:14 Pulse Ox 98 05/08/21 06:14 Body Mass Index 32.3 Neuro: Other: I saw her in emergency room and she was sleeping. I was able to wake her up. She kept her eyes closed and was resistant to examination. She was able to hear my commands and I was not speaking loudly and follow them. She did open her eyes and pupils were equal and reactive to light. There was no nystagmus. Visual breen were difficult to determine. Face was symmetrical. Tongue was midline. There was no focal weakness. Deep tendon reflexes were trace to absent with flexor plantars. Results Labs CBC & Chem 7: 05/08/21 06:33 05/08/21 06:33 Labs: Short CBC 05/07/21 05/08/21 Range/Units 12:53 06:33 WBC 8.6 8.4 (4.8-10.8) X10*3/uL Hgb 13.4 15.1 (12.0-16.0) g/dl Hct 39.9 45.0 (37-47) % Plt Count 221 230 (160-400) X10*3/uL BMP 05/07/21 05/08/21 12:54 06:33 Sodium 141 138 Potassium 3.5 3.2 L Chloride 101 98 Carbon Dioxide 31 H 24 BUN 14 17 H Creatinine 1.41 H 1.58 H Calcium 9.4 D 9.5 Liver Function 05/07/21 Range/Units 12:54 Total Bilirubin 0.6 (0.0-1.0) mg/dL Direct Bilirubin 0.3 (0.0-0.5) mg/dL AST 20 (5-31) U/L ALT 10 (0-31) U/L Alkaline Phosphatase 72 (39-117) U/L Albumin 4.1 (3.5-5.0) g/dL Noncontrast head CT revealed mild diffuse cerebral and cerebellar atrophy and [id number] chronic microvascular ischemic changes with no obvious acute lesion. Assessment and Plan (1) Deafness: Status: Acute 86 years old woman who complained of deafness but on examination there was no significant hearing impairment that I had noted. Otherwise her examination was suggestive more of behavioral or psychological illness as she was resistant to examination. I recommend an outpatient ENT evaluation to examine her external auditory canals to rule out wax and a hearing test. Overall history was not suggestive of a stroke. Procedures Date of Service Date of Service: 05/08/21
--- NOTE | 2021-05-08 09:31 | MHC.CM.PN ---
CM ATTEMPTED TO MEET WITH PT PT OUT OF ROOM CM TO RETURN
--- NOTE | 2021-05-08 09:54 | PC.NURSE ---
left for Kelley holt regarding pt's plan to leave AMA and need for transportation.
--- NOTE | 2021-05-08 10:36 | PC.NURSE ---
granddaughter has been called x 2. pt aware that taxi is a risky plan d/t difficulty ambulating and the fact that she'd be unassissted at the house. pt asked to wait patiently in the WR.
--- NOTE | 2021-05-08 10:42 | PM.DS ---
DS: Providers Provider Date of Service: 05/08/21 Date of admission: 05/07/21 19:14 Primary care physician: Jayjay Sood MD Consults: 05/07/21 19:14 Consult to Neurology Routine Consulting Provider: [facility] Reason for consultation: decreased hearing 05/08/21 06:13 Consult to Cardiology Routine Consulting Provider: Minh Womack Reason for consultation: CHf; chest pain DS: Diagnosis Discharge Diagnosis (1) Deafness: Status: Acute (2) Hypoxia: Status: Acute DS: Summary Hospital Course Hospital Course: Patient was admitted for hypoxic respiratory failure and unilateral sudden onset hearing loss. She was also noted to have some acute kidney injury, right lower extremity erythema. For her unilateral son onset hearing loss, plan was to empirically treated with steroids and to rule out [employer] lesion with MRI, however, patient did not agree to stay for workup and wanted to leave against medical advice, she expressed understanding of all the risks involved including . For her hypoxic respiratory failure this appears to have been chronic based on previous testing seen in the chart. Patient likely should be set up for chronic oxygen use. Her right lower extremity erythema is chronic and is unlikely acutely infected. For Her acute kidney injury, creatinine at discharge is 1.58, we are unable to work it up. There was some concern for pulmonary embolism, although I feel this is unlikely, plan was to get a V/Q scan which also was unable to be done. Patient was also noted to have hypertensive urgency with systolic blood pressures over the 200s, this was likely due to agitation and blood pressure became better controlled once patient was calm. No changes were made to her blood pressure meds. Time Spent with Patient Time attestation: Total time spent providing and/or coordinating discharge services: Discharge coordination time: Greater than 30 minutes Quality: Stroke Does the patient have a stroke diagnosis?: No Physical Exam Vital Signs: Vital Signs: Last Vital Signs Temp 97.6 F 05/08/21 03:51 Pulse 82 05/08/21 06:14 Resp 20 05/08/21 06:14 BP 178/80 H 05/08/21 06:14 Pulse Ox 98 05/08/21 06:14 Body Mass Index 32.3 General: AO X 3, agitated Resp: CTA bilateral, no accessory muscles used CVS: S1,S2,RRR GI: soft, non tender, non distended Neuro: motor grossly intact, alert Psych: appropriate affect, appropriate insight skin: rle tender, chronic skin changes DS: Data Data Completed and Pending Labs on day of discharge: Laboratory Results - last 24 hr 05/07/21 05/07/21 05/07/21 12:53 12:54 12:54 WBC 8.6 RBC 4.20 Hgb 13.4 Hct 39.9 MCV 95.0 MCH 31.9 MCHC 33.6 RDW 12.7 Plt Count 221 MPV 10.8 Immature Gran % (Auto) 0.3 Neut % (Auto) 68.7 Lymph % (Auto) 19.3 L [place] % (Auto) 7.7 Eos % (Auto) 3.5 Baso % (Auto) 0.5 Lymph # (Auto) 1.7 [place] # (Auto) 0.7 Eos # (Auto) 0.3 Baso # (Auto) 0.0 Abs Immat Gran (auto) 0.03 Absolute Neuts (auto) 5.9 Absolute Nucleated RBC 0.000 Nucleated RBC % (auto) 0.0 D-Dimer Sodium 141 Potassium 3.5 Chloride 101 Carbon Dioxide 31 H Anion Gap 13 BUN 14 Creatinine 1.41 H Estim Creat Clear Calc 33.1 Estimated GFR 35 Random Glucose 112 Lactic Acid Calcium 9.4 D Total Bilirubin 0.6 Direct Bilirubin 0.3 AST 20 ALT 10 Alkaline Phosphatase 72 Troponin I High Sens B-Natriuretic Peptide 45 Total Protein 7.3 Albumin 4.1 COVID-19 (GABE) COVID-[employer] 05/07/21 05/07/21 05/07/21 12:54 15:42 15:45 WBC RBC Hgb Hct MCV MCH MCHC RDW Plt Count MPV Immature Gran % (Auto) Neut % (Auto) Lymph % (Auto) [place] % (Auto) Eos % (Auto) Baso % (Auto) Lymph # (Auto) [place] # (Auto) Eos # (Auto) Baso # (Auto) Abs Immat Gran (auto) Absolute Neuts (auto) Absolute Nucleated RBC Nucleated RBC % (auto) D-Dimer Sodium Potassium Chloride Carbon Dioxide Anion Gap BUN Creatinine Estim Creat Clear Calc Estimated GFR Random Glucose Lactic Acid Calcium Total Bilirubin Direct Bilirubin AST ALT Alkaline Phosphatase Troponin I High Sens 9.5 9.0 B-Natriuretic Peptide Total Protein Albumin COVID-19 (GABE) Negative COVID-19 Clin Com See Note 05/07/21 05/07/21 05/07/21 17:24 17:24 20:22 WBC RBC Hgb Hct MCV MCH MCHC RDW Plt Count MPV Immature Gran % (Auto) Neut % (Auto) Lymph % (Auto) [place] % (Auto) Eos % (Auto) Baso % (Auto) Lymph # (Auto) [place] # (Auto) Eos # (Auto) Baso # (Auto) Abs Immat Gran (auto) Absolute Neuts (auto) Absolute Nucleated RBC Nucleated RBC % (auto) D-Dimer 492 Sodium Potassium Chloride Carbon Dioxide Anion Gap BUN Creatinine Estim Creat Clear Calc Estimated GFR Random Glucose Lactic Acid 1.4 Calcium Total Bilirubin Direct Bilirubin AST ALT Alkaline Phosphatase Troponin I High Sens 14.6 D B-Natriuretic Peptide Total Protein Albumin COVID-19 (GABE) COVID-[employer] 05/08/21 05/08/21 05/08/21 06:33 06:33 06:33 WBC 8.4 RBC 4.77 Hgb 15.1 Hct 45.0 MCV 94.3 MCH 31.7 MCHC 33.6 RDW 12.7 Plt Count 230 MPV 11.0 Immature Gran % (Auto) 0.4 Neut % (Auto) 59.1 Lymph % (Auto) 25.7 [place] % (Auto) 9.1 Eos % (Auto) 5.0 H Baso % (Auto) 0.7 Lymph # (Auto) 2.2 [place] # (Auto) 0.8 Eos # (Auto) 0.4 Baso # (Auto) 0.1 Abs Immat Gran (auto) 0.03 Absolute Neuts (auto) 5.0 Absolute Nucleated RBC 0.000 Nucleated RBC % (auto) 0.0 D-Dimer Sodium 138 Potassium 3.2 L Chloride 98 Carbon Dioxide 24 Anion Gap 19 BUN 17 H Creatinine 1.58 H Estim Creat Clear Calc 29.5 Estimated GFR 31 Random Glucose 115 Lactic Acid Calcium 9.5 Total Bilirubin Direct Bilirubin AST ALT Alkaline Phosphatase Troponin I High Sens 10.7 B-Natriuretic Peptide Total Protein Albumin COVID-19 (GABE) COVID-19 Clin Com Discharge Plan Discharge Patient Disposition: Left Against Medical Advice Discharge Diagnosis: Chronic hypoxic respiratory failure due to COPD, unilateral sudden onset hearing loss Referrals: Jayjay Sood MD [Primary Care Provider] - 1 Week Discharge Medications: No Action docusate sodium 100 mg Capsule 100 mg PO BEDTIME RF: 0 loratadine 10 mg Tablet 10 mg PO DAILY RF: 0 levothyroxine 50 mcg tablet 25 mcg PO MOWEFR@0630 RF: 0 simvastatin 10 mg tablet 10 mg PO DAILY RF: 0 amlodipine 5 mg tablet 5 mg PO BID RF: 0 levothyroxine 50 mcg tablet 50 mcg PO SUTUTHSA@0630 RF: 0 Atrovent HFA 17 mcg/actuation HFA aerosol inhaler 2 puff inhalation QID PRN (Reason: Shortness Of Breath) RF: 0 gabapentin 300 mg capsule 300 mg PO QID RF: 0 magnesium oxide 400 mg (241.3 mg magnesium) tablet 400 mg PO BEDTIME RF: 0 furosemide 40 mg tablet 40 mg PO DAILY RF: 0 Discharge Orders: Discharge Order (Routine); Ordered 05/08/21 Ordered By: Gerhard Love Stand Alone Forms: Against Medical Advice Care Plan Goals: reocvery Health Concerns: Hypoxia, hearing loss Plan of Treatment: Was unable to treat as planned as patient left against medical advice, should follow-up with primary care to set up for chronic oxygen and further workup for hearing loss Assessment: See above
--- NOTE | 2021-05-08 11:20 | MHC.CM.PN ---
PT STATING SHE IS LEAVING AMA CM ATTEMPTED TO CONTACT PTS PRIMARY CONTACT/GRAND DAUGHTER EMMETT SWEET ([phone]). A VM MESSAGE WAS LEFT REQUESTING A RETURN CALL
== END 2021-05-08 10:39 | disposition left against medical advice (07) | DRG 155 ==
LOC: HO.ED 18:09 → HO.EDOVER 19:55
PROVIDERS: Nurse Practitioner Family; Admitting Provider Hospitalist; Emergency Provider Emergency Medicine; PCP Internal Medicine; Visit Provider Internal Medicine
DX: H91.90 Unspecified hearing loss, unspecified ear (principal); N17.9 Acute kidney failure, unspecified; J96.11 Chronic respiratory failure with hypoxia; I48.0 Paroxysmal atrial fibrillation; E03.9 Hypothyroidism, unspecified; E78.5 Hyperlipidemia, unspecified; I11.0 Hypertensive heart disease with heart failure; I50.813 Acute on chronic right heart failure; I16.0 Hypertensive urgency; Z20.822 Contact with and (suspected) exposure to COVID-19; Z99.81 Dependence on supplemental oxygen; Z87.891 Personal history of nicotine dependence; Z88.5 Allergy status to narcotic agent; Z79.890 Hormone replacement therapy; Z79.899 Other long term (current) drug therapy
CPT/HCPCS: 36415; 70450; 71045; 80048; 80076; 83605; 83880; 84484; 85025; 85379; 87040; 87635; 93005; 93970; 93971; 99285; J0696; J2543

== ENCOUNTER 2022-08-05 15:47 | Outpatient (REF) | payer MEDICARE, MEDICAID, SELFPAY ==
[2022-08-05 16:05] LABS: MANUAL DIFF FLAG NO
[2022-08-05 16:15] LABS: Basophils Absolute Auto 0.1 X10*3/uL (0.0-0.2); Basophils Percent Auto 0.9 % (0-2); Eosinophils Absolute Auto 0.4 X10*3/uL (0.0-0.4); Eosinophils Percent Auto 3.7 % (0-4); Hemoglobin 14.5 g/dl (12.0-16.0); Imm Gran Abs Auto 0.03 X10*3/uL (0.00-0.03); Imm Gran Pct Auto 0.3 % (0.0-0.4); Lymphocytes Absolute Auto 2.1 X10*3/uL (1.2-4.9); Lymphocytes Percent Auto 21.3 % (20-40); Mean Corpuscular HGB Conc 33.7 g/dl (31.0-35.0); Mean Corpuscular Hemoglobin 30.9 pg (27.0-33.0); Mean Corpuscular Volume 91.5 fL (80.0-98.0); Mean Platelet Volume 10.6 fL (9.4-12.3); Monocytes Percent Auto 10.5 % (2-11); Neutrophils Absolute Auto 6.1 x10*3/uL (2.0-8.3); Neutrophils Percent Auto 63.3 % (45-73); Platelet Count 237 X10*3/uL (160-400); Red Cell Distribution Width 12.4 % (11.0-16.0); White Blood Count 9.6 X10*3/uL (4.8-10.8)
[2022-08-05 16:49] LABS: B Type Natriuretic Peptide 84 pg/mL (<100)
[2022-08-05 16:50] LABS: Alanine Aminotransferase 14 U/L (0-31); Albumin Level 4.1 g/dL (3.5-5.0); Alkaline Phosphatase 82 U/L (39-117); Anion Gap 16 (12-20); Aspartate Amino Transferase 30 U/L (5-31); Bilirubin Total 1.2 mg/dL (0.0-1.0); Blood Urea Nitrogen 10 mg/dL (9-16); Calcium 9.1 mg/dL (8.4-10.2); Carbon Dioxide 31 mmol/L (22-29); Chloride 95 mmol/L (96-108); Cholesterol 145 mg/dL; Estimated Glomerular Filt Rate 35; Glucose Random 106 mg/dL (60-115); Sodium 139 mmol/L (135-145); Total Protein 7.2 g/dL (6.5-8.0)
[2022-08-05 17:06] LABS: Free T4 (Free Thyroxine) 1.25 ng/dL (0.71-1.85); Thyroid Stimulating Hormone 4.19 uIU/mL (0.32-4.0); Vitamin D 25-OH Total 28.2 ng/mL (>30)
== END 2022-08-05 15:48 | disposition home or self-care (01) ==
LOC: HO.LAB 15:47
PROVIDERS: PCP Internal Medicine; Visit Provider Internal Medicine
DX: Z00.00 Encounter for general adult medical examination without abnormal findings (principal); E03.9 Hypothyroidism, unspecified
CPT/HCPCS: 36415; 80053; 82306; 82465; 83880; 84439; 84443; 85025

== ENCOUNTER 2022-11-11 15:32 | Outpatient (REF) | payer MEDICARE, MEDICAID, SELFPAY ==
[2022-11-11 16:00] LABS: MANUAL DIFF FLAG NO
[2022-11-11 16:11] LABS: Basophils Absolute Auto 0.1 X10*3/uL (0.0-0.2); Basophils Percent Auto 0.9 % (0-2); Eosinophils Absolute Auto 0.2 X10*3/uL (0.0-0.4); Eosinophils Percent Auto 2.7 % (0-4); Hematocrit 41.1 % (37.0-47.0); Hemoglobin 13.8 g/dl (12.0-16.0); Imm Gran Abs Auto 0.05 X10*3/uL (0.00-0.03); Imm Gran Pct Auto 0.6 % (0.0-0.4); Lymphocytes Percent Auto 24.2 % (20-40); Mean Corpuscular HGB Conc 33.6 g/dl (31.0-35.0); Mean Corpuscular Hemoglobin 30.5 pg (27.0-33.0); Mean Corpuscular Volume 90.9 fL (80.0-98.0); Mean Platelet Volume 10.4 fL (9.4-12.3); Monocytes Absolute Auto 0.9 X10*3/uL (0.1-1.2); Monocytes Percent Auto 10.4 % (2-11); Neutrophils Percent Auto 61.2 % (45-73); Platelet Count 278 X10*3/uL (160-400); Red Blood Count 4.52 X10*6/uL (4.20-5.50); Red Cell Distribution Width 12.8 % (11.0-16.0); White Blood Count 8.2 X10*3/uL (4.8-10.8)
[2022-11-11 16:35] LABS: B Type Natriuretic Peptide 122 pg/mL (<100)
[2022-11-11 16:37] LABS: Alanine Aminotransferase 11 U/L (0-31); Albumin Level 4.1 g/dL (3.5-5.0); Alkaline Phosphatase 85 U/L (39-117); Anion Gap 16 (12-20); Aspartate Amino Transferase 26 U/L (5-31); Bilirubin Total 0.9 mg/dL (0.0-1.0); Blood Urea Nitrogen 12 mg/dL (9-16); Calcium 9.5 mg/dL (8.4-10.2); Carbon Dioxide 30 mmol/L (22-29); Chloride 98 mmol/L (96-108); Estimated Glomerular Filt Rate 44; Glucose Random 117 mg/dL (60-115); Potassium 2.7 mmol/L (3.3-5.1); Sodium 141 mmol/L (135-145); Total Protein 7.6 g/dL (6.5-8.0)
[2022-11-11 16:56] LABS: Free T4 (Free Thyroxine) 1.05 ng/dL (0.71-1.85); Thyroid Stimulating Hormone 4.19 uIU/mL (0.32-4.0)
== END 2022-11-11 15:33 | disposition home or self-care (01) ==
LOC: HO.LAB 15:32
PROVIDERS: PCP Internal Medicine; Visit Provider Internal Medicine
DX: J44.9 Chronic obstructive pulmonary disease, unspecified (principal); R60.0 Localized edema; E03.9 Hypothyroidism, unspecified; N18.9 Chronic kidney disease, unspecified; R00.1 Bradycardia, unspecified
CPT/HCPCS: 36415; 80053; 83880; 84439; 84443; 85025

== ENCOUNTER 2022-12-20 15:30 | Inpatient (IN) | payer MEDICARE, MEDICAID, SELFPAY ==
--- NOTE | ~2022-12-20 | US_ITS ---
EXAMINATION: US VENOUS ULTRASOUND WITH DOPPLER LOWER EXTREMITY, BILATERAL CLINICAL INFORMATION: Hypoxia. Bilateral edema. COMPARISON: Previous exam April 2021 TECHNIQUE: Ultrasound of the deep veins is performed from the hip to the calf with compression sonography and color and pulse Doppler assessment. Spectral analysis with color-flow imaging is performed. FINDINGS: RIGHT: There is normal venous compression and respiratory variation and augmented flow. The visualized common femoral vein, superficial femoral vein, profunda femoral vein, popliteal vein, and the posterior tibial veins shows no evidence of deep venous thrombosis. Peroneal veins not well visualized. There is no significant popliteal fossa cyst. LEFT: There is normal venous compression and respiratory variation and augmented flow. The visualized common femoral vein, superficial femoral vein, profunda femoral vein, popliteal vein, and the posterior tibial veins shows no evidence of deep venous thrombosis. Peroneal veins not well visualized. There is no significant popliteal fossa cyst. Bilateral lower leg edema. US/US venous duplex LE BI IMPRESSION: No DVT demonstrated in the bilateral lower extremity. Peroneal veins not well visualized bilaterally.
--- NOTE | ~2022-12-20 | XR_ITS ---
EXAMINATION: XR CHEST CLINICAL INFORMATION: Shortness of breath. COMPARISON: Chest radiograph 05/07/2021. TECHNIQUE: Frontal view of the chest was obtained. FINDINGS: Diffuse interstitial thickening with asymmetric left upper lobe lucency, similar compared to 05/07/2021 suggesting emphysema. No new focal airspace opacity. No pleural effusion or pneumothorax. Unchanged cardiomediastinal silhouette. Chronic appearing right-sided rib deformities. XR/XR chest 1V IMPRESSION: 1. No acute cardiopulmonary findings. 2. Chronic changes suggesting emphysema. 3. Chronic appearing right-sided rib deformities.
[2022-12-20 16:45] VITALS: BP 188/75; PULSE 102; RESP 20; TEMP 35.9; O2SAT 88; BMI 34.0
--- NOTE | 2022-12-20 16:45 | ED_ITS ---
HPI - General Adult General Chief complaint: Dyspnea Stated complaint: fluid leaking from legs per dr leiva Time Seen by Provider: 12/20/22 17:51 Source: patient, RN notes reviewed and old records reviewed Mode of arrival: ambulatory Limitations: no limitations History of Present Illness HPI narrative: 87-year-old female past medical history significant for right-sided heart failure, paroxysmal AFib, COPD not on oxygen who presents for evaluation of shortness of breath and leg swelling. Patient reports that she takes Lasix 40 mg daily and has been compliant with this She states that her legs are always swollen but over the last 2 days she has had significant weeping from the left leg. She reports increased pain to the area as well Denies any chest pain. Denies any fevers but endorses ?cold sweats. ? She called her doctor and was referred to the ER due to the fluid weeping from her legs. Related Data Home Medications Medication Instructions Recorded Confirmed amlodipine 5 mg tablet 5 mg PO BID 07/13/20 05/07/21 furosemide 40 mg tablet 40 mg PO DAILY 07/13/20 05/07/21 gabapentin 300 mg capsule 300 mg PO QID 07/13/20 05/07/21 ipratropium bromide 17 2 puff inhalation QID PRN 07/13/20 05/07/21 mcg/actuation HFA aerosol inhaler Shortness Of Breath levothyroxine 50 mcg tablet 50 mcg PO SUTUTHSA@0630 07/13/20 08/20/20 magnesium oxide 400 mg (241.3 mg 400 mg PO BEDTIME 07/13/20 05/07/21 magnesium) tablet simvastatin 10 mg tablet 10 mg PO DAILY 07/13/20 05/07/21 docusate sodium 100 mg capsule 100 mg PO BEDTIME 05/07/21 05/07/21 levothyroxine 50 mcg tablet 25 mcg PO MOWEFR@0630 05/07/21 loratadine 10 mg tablet 10 mg PO DAILY 05/07/21 05/07/21 Allergies Allergy/AdvReac Type Severity Reaction Status Date / Time adhesive tape [Adhesive Tape] Allergy Unknown RASH Verified 12/20/22 16:50 codeine [Codeine] Allergy Unknown SWELLING Verified 12/20/22 16:50 Iodinated Contrast Media Allergy Unknown UNKNOWN Verified 12/20/22 16:50 [IV Dye, Iodine Containing] iodine [Iodine] Allergy Unknown UNKNOWN Verified 12/20/22 16:50 oxycodone [Percocet] Allergy Unknown unknown Verified 12/20/22 16:50 papaya [Papaya] Allergy Unknown HIVES Verified 12/20/22 16:50 pineapple [Pineapple] Allergy Unknown HIVES Verified 12/20/22 16:50 strawberry [Gardner] Allergy Unknown HIVES Verified 12/20/22 16:50 Codeine Phosphate Allergy Unknown unknown Uncoded 11/30/20 15:34 Novocain Allergy Unknown unknown Uncoded 11/30/20 15:34 From Vicodin AdvReac Unknown NAUSEA & Uncoded 11/30/20 15:34 VOMITING Review of Systems Constitutional: Constitutional: Reports as per HPI, Reports chills, Denies fatigue, Denies fever(s) and Denies headache(s) ENT: Denies headache(s) Cardiovascular: Cardiovascular: Denies chest pain, Reports pedal edema, Reports leg edema and Reports dyspnea Respiratory: Respiratory: Denies cough and Reports dyspnea Gastrointestinal: Gastrointestinal: Denies abdominal pain, Denies constipation and Denies vomiting Genitourinary: Genitourinary: Denies dysuria Neurologic: Denies headache(s) and Denies focal weakness Endocrine: Endocrine: Denies fatigue PMFSH Past Medical History Medical History COPD (chronic obstructive pulmonary disease) HTN (hypertension) Hyperlipidemia Hypothyroidism PAF (paroxysmal atrial fibrillation) Family History Family History Father History of heart disease Mother History of heart disease Social History Social History Alcohol intake: never Patient Tobacco Use Status: Former Tobacco user Smoked in Last 30 Days: No Use of substances other than those prescribed or required for medical reasons: No Advance Directives: No Advance Directives Information Provided: No Physical Exam ED Vital Signs: Vital Signs - 24 hr 12/20/22 16:45 12/20/22 18:07 Temperature 96.7 F L 98.5 F Pulse Rate 102 H 93 Respiratory Rate 20 22 H Blood Pressure 188/75 H 147/64 H Pulse Oximetry 88 L 94 Oxygen Delivery Method Room Air Nasal Cannula Oxygen Flow Rate 2.5 BMI result Body Mass Index 34.0 Const General: no acute distress, alert and awake Nutritional Appearance: well nourished and obese Orientation/consciousness: patient oriented x3 HENMT Head: Yes normocephalic and Yes atraumatic Eyes Eyelids: Yes eyelids normal Conjunctivae: conjunctivae normal Sclerae: sclerae normal Corneas: corneas normal Pupils: Equal, round and reactive pupils present EOM: EOMs intact bilaterally Neck Neck: Yes full ROM Resp Other: Patient has slightly increased respiratory effort. She is speaking in approximately 8-10 words sinuses. Mild bibasilar crackles Effort & Inspection: no audible wheezes and no cough Cardio Other: Patient has significant bilateral lower extremity edema, right greater than left. There is clear, serous drainage weeping from several spots in the left lower extremity. There is faint erythema without increased warmth of both lower extremities. Erythema is blotchy, no beefy red well-demarcated areas of erythema Rate: tachycardic Rhythm: regular rhythm GI Inspection: No distended Palpation (GI): Soft to palpation, not firm, nontender, no guarding and not rigid Auscultation: normoactive bowel sounds Skin General skin exam: elasticity normal Neuro General: patient oriented x3 Cranial nerves: Yes Equal, round and reactive pupils present and Yes Bilaterally intact EOM present Cognition (Neuro): normal cognition Course Course Course Narrative: RME: 87yo F w/PMHx RONAK, PAF, CHF c/o worsening LE edema with leakage x mos. Also reports mild SOB. reports compliance with Lasix, sent in by Dr. Leiva +b/l LE pitting edema > RLE, +bibasilar crackles, satting 88% on RA in no resp distress EKG, labs, CXR, Venous duplex US ordered Full HPI, ROS and PE to be performed by primary ED provider. Reevaluation(s) Reevaluation #1: Patient's lactic acid improved from 3.0-1.5 without any intervention. This leads me to believe that the patient's lactate was elevated from the use of her inhalers. Less likely infectious process. Will still get a CT scan chest. A D-dimer was ordered to assess risk for PE. If elevated will get a CT angiography if negative will get a CT chest without contrast. Patient's potassium 2.8 was supplemented orally. Time: 20:23 Reevaluation #2: Patient's age adjusted D-dimer will be of to 430 so she is 89 and her med count, VT is very unlikely. The patient actually does have an IV contrast allergy. Will get a CT chest without contrast Time: 21:26 Reevaluation #3: Patient adamantly refusing CT scan the chest due to claustrophobia. She declines even with premedication. The patient's granddaughter is now bedside. I discussed the patient's care with the granddaughter. The patient's g randdaughter reports that the patient's PCP, Dr. Leiva wanted the patient admitted for IV diuresis and consideration for home O2. Will discuss with the hospitalist Time: 21:48 Medications Administered Generic Name Dose Route Start Last Admin Trade Name Freq PRN Reason Stop Dose Admin Acetaminophen 650 mg 12/20/22 22:21 12/20/22 23:15 Acetaminophen 325 Mg Tablet PO 650 mg Q6H PRN Administration Pain, Mild (Pain Scale 1-3) Docusate Sodium 100 mg 12/20/22 22:21 12/20/22 23:07 Docusate Sodium 100 Mg Capsule PO 100 mg DAILY PRN Administration Constipation Enoxaparin Sodium 30 mg 12/20/22 23:00 12/20/22 23:05 Enoxaparin Sodium 30 Mg/0.3 Ml Syringe SUBCUT 30 mg Q24H TOBI Administration Cefazolin Sodium 1 gm/ Sodium 50 mls @ 100 mls/hr 12/20/22 23:00 12/20/22 23:07 Chloride IV 100 mls/hr Q12H TOBI Administration Azithromycin 500 mg/ Sodium 250 mls @ 125 mls/hr 12/21/22 00:00 12/20/22 23:06 Chloride IV 12/23/22 01:59 125 mls/hr Q24H TOBI Administration Ondansetron HCl 4 mg 12/20/22 22:21 12/20/22 23:08 Ondansetron Hcl 4 Mg/2 Ml Vial IVPUSH 4 mg Q8H PRN Administration Nausea and Vomiting Sodium Chloride 3 ml 12/21/22 00:00 12/20/22 23:06 0.9 % Sodium Chloride Flush 3 Ml Syringe IVFLUSH 3 ml QSHIFT TOBI Administration Discontinued Medications Generic Name Dose Route Start Last Admin Trade Name Freq PRN Reason Stop Dose Admin Furosemide 60 mg 12/20/22 21:48 12/20/22 23:03 Furosemide 100 Mg/10 Ml Vial IVPUSH 12/20/22 21:49 60 mg ONCE ONE Administration Protocol Methylprednisolone Sodium Succinate 125 mg 12/20/22 22:21 12/20/22 23:05 Methylprednisolone Sod Succ 125 Mg/2 Ml Vial IVPUSH 12/20/22 22:22 125 mg ONCE ONE Administration Potassium Chloride 40 meq 12/20/22 20:10 12/20/22 21:11 Potassium Chloride Er 20 Meq Tab.Er.Prt PO 12/20/22 20:11 40 meq ONCE ONE Administration Medical Decision Making Medical Decision Making MDM Narrative: 87-year-old female presents for evaluation of bilateral leg swelling. Her right leg is significantly more swollen all left and the left leg is weeping clear fl uid. The patient reports being compliant with her Lasix. She is afebrile. Patient is somewhat tachycardic to about 110 on arrival and was hypoxic to 88% on room air. She was placed on 2 L with improvement to about 94% at rest. Patient's BNP is only elevated to 64. Troponin of 20.3 but the patient denies any chest pain. Her lactate was noted to be elevated to 3.0. The patient's potassium was 2.8 likely from use of Lasix. Chest x-ray, lower extremity ultrasounds pending at this time. Differential Diagnosis Congestive heart failure Cellulitis Pneumonia PE COPD exacerbation Hypoxia Lab Data 12/20/22 17:05 12/20/22 17:05 Labs: Lab Results 12/20/22 12/20/22 12/20/22 Range/Units 17:05 17:05 17:05 WBC (4.8-10.8) X10*3/uL RBC (4.20-5.50) X10*6/uL Hgb (12.0-16.0) g/dl Hct (37.0-47.0) % MCV (80.0-98.0) fL MCH (27.0-33.0) pg MCHC (31.0-35.0) g/dl RDW (11.0-16.0) % Plt Count (160-400) X10*3/uL MPV (9.4-12.3) fL Immature Gran % (Auto) (0.0-0.4) % Neut % (Auto) (45-73) % Lymph % (Auto) (20-40) % [place] % (Auto) (2-11) % Eos % (Auto) (0-4) % Baso % (Auto) (0-2) % Lymph # (Auto) (1.2-4.9) X10*3/uL [place] # (Auto) (0.1-1.2) X10*3/uL Eos # (Auto) (0.0-0.4) X10*3/uL Baso # (Auto) (0.0-0.2) X10*3/uL Abs Immat Gran (auto) (0.00-0.03) X10*3/uL Absolute Neuts (auto) (2.0-8.3) x10*3/uL Absolute Nucleated RBC (0.0-0.012) X10*3/uL Nucleated RBC % (auto) (0.0-0.2) /100WBC PT 10.7 (10.0-13.1) SEC INR 0.9 (0.9-1.1) D-Dimer High Sensitivty 386 NG/ML VBG pH (7.32-7.43) VBG pCO2 mmHg VBG pO2 mmHg VBG HCO3 (22-26) mmol/L VBG O2 Saturation % VBG Base Excess mmol/L Sodium 140 (135-145) mmol/L Potassium 2.8 L (3.3-5.1) mmol/L Chloride 98 (96-108) mmol/L Carbon Dioxide 25 (22-29) mmol/L Anion Gap 20 (12-20) BUN 9 (9-16) mg/dL Creatinine 1.39 (0.5-1.4) mg/dL Estim Creat Clear Calc 26.9 Estimated GFR 36 Random Glucose 96 (60-115) mg/dL Lactic Acid (0.5-2.0) mmol/L Lactic Acid F/U @ 2Hr (0.5-2.0) mmol/L Calcium 10.6 H D (8.4-10.2) mg/dL Magnesium 2.1 (1.6-2.6) mg/dL Total Bilirubin 1.0 (0.0-1.0) mg/dL Direct Bilirubin 0.3 (0.0-0.5) mg/dL AST 32 H (5-31) U/L ALT 15 (0-31) U/L Alkaline Phosphatase 105 (39-117) U/L Troponin I High Sens 20.3 H (<3.5-17.0) ng/L B-Natriuretic Peptide (<100) pg/mL Total Protein 9.7 H (6.5-8.0) g/dL Albumin 4.6 (3.5-5.0) g/dL Influenza Type A (PCR) (Negative) Influenza Type B (PCR) (Negative) RSV RNA Qual (PCR) (Negative) SARS-CoV-2 RNA (RT-PCR) (Negative) 12/20/22 12/20/22 12/20/22 Range/Units 17:05 17:05 19:31 WBC 10.9 H (4.8-10.8) X10*3/uL RBC 4.82 (4.20-5.50) X10*6/uL Hgb 14.7 (12.0-16.0) g/dl Hct 43.4 (37.0-47.0) % MCV 90.0 (80.0-98.0) fL MCH 30.5 (27.0-33.0) pg MCHC 33.9 (31.0-35.0) g/dl RDW 12.9 (11.0-16.0) % Plt Count 283 (160-400) X10*3/uL MPV 9.9 (9.4-12.3) fL Immature Gran % (Auto) 0.4 (0.0-0.4) % Neut % (Auto) 70.2 (45-73) % Lymph % (Auto) 20.0 (20-40) % [place] % (Auto) 6.4 (2-11) % Eos % (Auto) 2.3 (0-4) % Baso % (Auto) 0.7 (0-2) % Lymph # (Auto) 2.2 (1.2-4.9) X10*3/uL [place] # (Auto) 0.7 (0.1-1.2) X10*3/uL Eos # (Auto) 0.3 (0.0-0.4) X10*3/uL Baso # (Auto) 0.1 (0.0-0.2) X10*3/uL Abs Immat Gran (auto) 0.04 H (0.00-0.03) X10*3/uL Absolute Neuts (auto) 7.6 (2.0-8.3) x10*3/uL Absolute Nucleated RBC 0.000 (0.0-0.012) X10*3/uL Nucleated RBC % (auto) 0.0 (0.0-0.2) /100WBC PT (10.0-13.1) SEC INR (0.9-1.1) D-Dimer High Sensitivty NG/ML VBG pH (7.32-7.43) VBG pCO2 mmHg VBG pO2 mmHg VBG HCO3 (22-26) mmol/L VBG O2 Saturation % VBG Base Excess mmol/L Sodium (135-145) mmol/L Potassium (3.3-5.1) mmol/L Chloride (96-108) mmol/L Carbon Dioxide (22-29) mmol/L Anion Gap (12-20) BUN (9-16) mg/dL Creatinine (0.5-1.4) mg/dL Estim Creat Clear Calc Estimated GFR Random Glucose (60-115) mg/dL Lactic Acid 3.0 H* (0.5-2.0) mmol/L Lactic Acid F/U @ 2Hr (0.5-2.0) mmol/L Calcium (8.4-10.2) mg/dL Magnesium (1.6-2.6) mg/dL Total Bilirubin (0.0-1.0) mg/dL Direct Bilirubin (0.0-0.5) mg/dL AST (5-31) U/L ALT (0-31) U/L Alkaline Phosphatase (39-117) U/L Troponin I High Sens (<3.5-17.0) ng/L B-Natriuretic Peptide 64 (<100) pg/mL Total Protein (6.5-8.0) g/dL Albumin (3.5-5.0) g/dL Influenza Type A (PCR) (Negative) Influenza Type B (PCR) (Negative) RSV RNA Qual (PCR) (Negative) SARS-CoV-2 RNA (RT-PCR) (Negative) 06/13/23 06/13/23 06/13/23 Range/Units 19:31 19:31 20:17 WBC (4.8-10.8) X10*3/uL RBC (4.20-5.50) X10*6/uL Hgb (12.0-16.0) g/dl Hct (37.0-47.0) % MCV (80.0-98.0) fL MCH (27.0-33.0) pg MCHC (31.0-35.0) g/dl RDW (11.0-16.0) % Plt Count (160-400) X10*3/uL MPV (9.4-12.3) fL Immature Gran % (Auto) (0.0-0.4) % Neut % (Auto) (45-73) % Lymph % (Auto) (20-40) % [place] % (Auto) (2-11) % Eos % (Auto) (0-4) % Baso % (Auto) (0-2) % Lymph # (Auto) (1.2-4.9) X10*3/uL [place] # (Auto) (0.1-1.2) X10*3/uL Eos # (Auto) (0.0-0.4) X10*3/uL Baso # (Auto) (0.0-0.2) X10*3/uL Abs Immat Gran (auto) (0.00-0.03) X10*3/uL Absolute Neuts (auto) (2.0-8.3) x10*3/uL Absolute Nucleated RBC (0.0-0.012) X10*3/uL Nucleated RBC % (auto) (0.0-0.2) /100WBC PT (10.0-13.1) SEC INR (0.9-1.1) D-Dimer High Sensitivty NG/ML VBG pH 7.47 H (7.32-7.43) VBG pCO2 52 mmHg VBG pO2 57 mmHg VBG HCO3 38 H (22-26) mmol/L VBG O2 Saturation 85.0 % VBG Base Excess 12.9 mmol/L Sodium (135-145) mmol/L Potassium (3.3-5.1) mmol/L Chloride (96-108) mmol/L Carbon Dioxide (22-29) mmol/L Anion Gap (12-20) BUN (9-16) mg/dL Creatinine (0.5-1.4) mg/dL Estim Creat Clear Calc Estimated GFR Random Glucose (60-115) mg/dL Lactic Acid (0.5-2.0) mmol/L Lactic Acid F/U @ 2Hr 1.5 (0.5-2.0) mmol/L Calcium (8.4-10.2) mg/dL Magnesium (1.6-2.6) mg/dL Total Bilirubin (0.0-1.0) mg/dL Direct Bilirubin (0.0-0.5) mg/dL AST (5-31) U/L ALT (0-31) U/L Alkaline Phosphatase (39-117) U/L Troponin I High Sens (<3.5-17.0) ng/L B-Natriuretic Peptide (<100) pg/mL Total Protein (6.5-8.0) g/dL Albumin (3.5-5.0) g/dL Influenza Type A (PCR) NEGATIVE (Negative) Influenza Type B (PCR) NEGATIVE (Negative) RSV RNA Qual (PCR) NEGATIVE (Negative) SARS-CoV-2 RNA (RT-PCR) NEGATIVE (Negative) Discharge Plan Discharge Clinical Impression: Shortness of breath, Leg edema Patient Disposition: Admitted As Inpatient
--- NOTE | 2022-12-20 16:47 | ECG_ITS ---
Test Reason : sob Blood Pressure : / mmHG Vent. Rate : 102 BPM Atrial Rate : 115 BPM P-R Int : 162 ms QRS Dur : 074 ms QT Int : 352 ms P-R-T Axes : 079 016 054 degrees QTc Int : 458 ms Sinus tachycardia with occasional Premature ventricular complexes Anteroseptal infarct , age undetermined Abnormal ECG When compared with ECG of 08-MAY-2021 06:21, Anteroseptal infarct is now Present Nonspecific T wave abnormality, improved in Lateral leads Referred By: Vanesa Andrade Electronically Signed By:KELLY KHAN MD
[2022-12-20 17:26] LABS: INTERNATIONAL NORM RATIO 0.9 (0.9-1.1); Prothrombin Time 10.7 SEC (10.0-13.1)
[2022-12-20 17:41] LABS: Alanine Aminotransferase 15 U/L (0-31); Albumin Level 4.6 g/dL (3.5-5.0); Alkaline Phosphatase 105 U/L (39-117); Anion Gap 20 (12-20); Aspartate Amino Transferase 32 U/L (5-31); Bilirubin Direct 0.3 mg/dL (0.0-0.5); Blood Urea Nitrogen 9 mg/dL (9-16); Calcium 10.6 mg/dL (8.4-10.2); Carbon Dioxide 25 mmol/L (22-29); Chloride 98 mmol/L (96-108); Creatinine Clr Calc Pharmacy 26.9; Estimated Glomerular Filt Rate 36; Glucose Random 96 mg/dL (60-115); Magnesium 2.1 mg/dL (1.6-2.6); Potassium 2.8 mmol/L (3.3-5.1); Sodium 140 mmol/L (135-145); Total Protein 9.7 g/dL (6.5-8.0)
[2022-12-20 17:46] LABS: B Type Natriuretic Peptide 64 pg/mL (<100)
[2022-12-20 17:49] LABS: Troponin-I High Sensitivity 20.3 ng/L (<3.5-17.0)
[2022-12-20 18:07] VITALS: BP 147/64; PULSE 93; RESP 22; TEMP 36.9; O2SAT 94
[2022-12-20 19:16] LABS: Reflex Lactate? Lactic Acid Added
[2022-12-20 19:38] LABS: Basophils Absolute Auto 0.1 X10*3/uL (0.0-0.2); Basophils Percent Auto 0.7 % (0-2); Eosinophils Absolute Auto 0.3 X10*3/uL (0.0-0.4); Eosinophils Percent Auto 2.3 % (0-4); Hematocrit 43.4 % (37.0-47.0); Hemoglobin 14.7 g/dl (12.0-16.0); Imm Gran Abs Auto 0.04 X10*3/uL (0.00-0.03); Imm Gran Pct Auto 0.4 % (0.0-0.4); Lymphocytes Absolute Auto 2.2 X10*3/uL (1.2-4.9); Mean Corpuscular HGB Conc 33.9 g/dl (31.0-35.0); Mean Corpuscular Hemoglobin 30.5 pg (27.0-33.0); Mean Platelet Volume 9.9 fL (9.4-12.3); Monocytes Absolute Auto 0.7 X10*3/uL (0.1-1.2); Monocytes Percent Auto 6.4 % (2-11); Neutrophils Absolute Auto 7.6 x10*3/uL (2.0-8.3); Neutrophils Percent Auto 70.2 % (45-73); Platelet Count 283 X10*3/uL (160-400); Red Blood Count 4.82 X10*6/uL (4.20-5.50); Red Cell Distribution Width 12.9 % (11.0-16.0); White Blood Count 10.9 X10*3/uL (4.8-10.8)
[2022-12-20 19:57] LABS: MANUAL DIFF FLAG NO
[2022-12-20 20:07] LABS: ~Lactic Acid-LAB USE ONLY 1.5 mmol/L (0.5-2.0)
[2022-12-20 20:26] LABS: VBG Base Excess 12.9 mmol/L; VBG HCO3 38 mmol/L (22-26); VBG pCO2 52 mmHg; VBG pH 7.47 (7.32-7.43); VBG pO2 57 mmHg
[2022-12-20 20:27] LABS: Venous Blood Gas Refer to POC result
[2022-12-20 21:06] LABS: Influenza A PCR NEGATIVE (Negative); Influenza B PCR NEGATIVE (Negative); Resp Syncy Virus RNA Qual PCR NEGATIVE (Negative); SARS COV2 PCR INHOUSE NEGATIVE (Negative)
[2022-12-20] MEDS: Potassium Chloride ER 20 MEQ TAB.ER.PRT 40 MEQ PO (21:11)
--- NOTE | 2022-12-20 21:13 | PC.NURSE ---
patient was given the potassium tabs by mouth patient stated she is in pain 10/10mdoctor will be notified safety will continue to be monitored for safety
[2022-12-20 21:14] LABS: D Dimer High Sensitivity 386 NG/ML
--- NOTE | 2022-12-20 22:32 | P.HPHOSP_ITS ---
patient seen and examined along with ADIS I agree with IR findings as below, patient with multiple issues including CHF likely, COPD exacerbation, as well as cellulitis of left lower extremity patient will be started on IV antibiotics, treatment of COPD with steroids and scheduled/p.r.n. breathing treatments, as well as cardiology consult for CHF for full H&P please see below History of Present Illness Date of Service: 12/20/22 Attending physician on admission: Kevin Farrell Chief Complaint: swollen/weeping legs, sob 87-year-old female with history of diastolic dysfunction, COPD not on home O2, hypothyroidism, paroxysmal atrial fibrillation not on anticoagulation, hypertension, lymphedema, and obesity presented to the ED with her granddaughter for evaluation of leg edema and shortness of breath. She reports she has had lymphedema with chronic edema worsening over the last year but over the last few days has had significant weeping of serous drainage. States the weeping is so significant will perform portals on the floor. The LLE is also exquisitely painful. She has been compliant with her Lasix 60 mg daily. She is also reporting worsening shortness of breath with increased productive cough with brown sputum production. Describes a dyspnea on exertion as well as orthopnea, sleeping with 4 pillows at night though this is not new. On exam, she is barely able to speak in full sentences and is noted to have pursed lipped breathing at intervals. She has been using her albuterol inhaler quite frequently per her granddaughter. Incidentally, she also reports several syncopal episodes that have occurred. Notes prodrome of generalized weakness and lightheadedness before syncopizing. She is uncertain of the duration of time she is unconscious periods states this will happen while standing without any exertion. No syncopal episode prior to visit today. On arrival, patient is afebrile, with mild tachycardia of 102 and tachypnea of 22. She was hypoxic to 88% placed on 2.5 L supplemental O2 with improvement to 94%. There is a very mild leukocytosis of 10.9. Renal function baseline. Electrolytes normal with the exception of 8 hypokalemia of 2.8. Initial lactic acid is 3.0, 2 are follow-up lactic acid 1.5. Initial troponin 20.3. BNP 64. She is negative for influenza, RSV, COVID-19. Venous duplex is negative for DVT bilaterally. Chest x-ray is negative for any acute cardiopulmonary abnormality but does show chronic changes suggestive of emphysema and chronic appearing right-sided rib deformities. Chest CT was ordered but patient refused due to significant claustrophobia and refused Ativan. In the ED, was treated with 125 mg IV methylprednisolone, 60 mg IV Lasix, and 40 mEq Potassium chloride. Review of Systems Review of Systems: General: No fevers, malaise, unintentional weight loss HEENT: No blurred vision, diplopia. No sore throat, nasal congestion, rhinorrhea, sinus pain, ear pain Cardiovascular: No chest pain, palpitations. +BLE edema Respiratory: No shortness of breath, wheezing, cough GI: No abdominal pain, nausea, vomiting, diarrhea, constipation, melena, hematochezia : No dysuria, hematuria, increased urinary frequency, decreased urinary output MSK: No myalgia, back pain. +pain LLE Neuro: No headaches, weakness, paresthesias Skin: +erythema LLE PMFSH Medical History COPD (chronic obstructive pulmonary disease) HTN (hypertension) Hyperlipidemia Hypothyroidism PAF (paroxysmal atrial fibrillation) Family History Father History of heart disease Mother History of heart disease Social History Alcohol intake: never Patient Tobacco Use Status: Former Tobacco user Smoked in Last 30 Days: No Use of substances other than those prescribed or required for medical reasons: No Advance Directives: No Advance Directives Information Provided: No Meds Allergies Allergy/AdvReac Type Severity Reaction Status Date / Time adhesive tape [Adhesive Tape] Allergy Unknown RASH Verified 12/20/22 16:50 codeine [Codeine] Allergy Unknown SWELLING Verified 12/20/22 16:50 Iodinated Contrast Media Allergy Unknown UNKNOWN Verified 12/20/22 16:50 [IV Dye, Iodine Containing] iodine [Iodine] Allergy Unknown UNKNOWN Verified 12/20/22 16:50 oxycodone [Percocet] Allergy Unknown unknown Verified 12/20/22 16:50 papaya [Papaya] Allergy Unknown HIVES Verified 12/20/22 16:50 pineapple [Pineapple] Allergy Unknown HIVES Verified 06/13/23 16:50 strawberry [Cobden] Allergy Unknown HIVES Verified 12/20/22 16:50 Codeine Phosphate Allergy Unknown unknown Uncoded 11/30/20 15:34 Novocain Allergy Unknown unknown Uncoded 11/30/20 15:34 From Vicodin AdvReac Unknown NAUSEA & Uncoded 11/30/20 15:34 VOMITING Active Medications: Current Medications Acetaminophen (Acetaminophen 325 Mg Tablet) 650 mg PO Q6H PRN PRN Reason: Pain, Mild (Pain Scale 1-3) Albuterol Sulfate (Albuterol Sulfate (0.083%) 2.5 Mg/3 Ml Vial.Neb) 2.5 mg INHALE Q2H PRN PRN Reason: Shortness of Breath/Wheezing Albuterol/Ipratropium (Albuterol/Iprat 2.5/0.5mg 3 Ml Ampul.Neb) 3 ml INHALE RQ4H WHILE AWAKE TOBI Docusate Sodium (Docusate Sodium 100 Mg Capsule) 100 mg PO DAILY PRN PRN Reason: Constipation Enoxaparin Sodium (Enoxaparin Sodium 30 Mg/0.3 Ml Syringe) 30 mg SUBCUT Q24H TOBI Furosemide (Furosemide 100 Mg/10 Ml Vial) 60 mg IVPUSH DAILY TOBI; Protocol Methylprednisolone Sodium Succinate (Methylprednisolone Sod Succ 40 Mg/Ml Vial) 40 mg IVPUSH Q12H TOBI Ondansetron HCl (Ondansetron Hcl 4 Mg/2 Ml Vial) 4 mg IVPUSH Q8H PRN PRN Reason: Nausea and Vomiting Pharmacy Consult (Consult Rx Perform Med Rec) 1 each MISCELLANE ONCE PRN PRN Reason: Consult order Sodium Chloride (0.9 % Sodium Chloride Flush 3 Ml Syringe) 3 ml IVFLUSH QSHIFT [facility] Home Medications Medication Instructions Recorded Confirmed Last Taken Type amlodipine 5 mg tablet 5 mg PO BID 07/13/20 05/07/21 05/07/21 History furosemide 40 mg tablet 40 mg PO DAILY 07/13/20 05/07/21 05/07/21 History gabapentin 300 mg capsule 300 mg PO QID 07/13/20 05/07/21 05/07/21 History ipratropium bromide 17 2 puff inhalation QID PRN 07/13/20 05/07/21 Unknown History mcg/actuation HFA aerosol inhaler Shortness Of Breath levothyroxine 50 mcg tablet 50 mcg PO SUTUTHSA@0630 01/04/21 02/11/21 Unknown History magnesium oxide 400 mg (241.3 mg 400 mg PO BEDTIME 07/13/20 05/07/21 Unknown His tory magnesium) tablet simvastatin 10 mg tablet 10 mg PO DAILY 07/13/20 05/07/21 Unknown History docusate sodium 100 mg capsule 100 mg PO BEDTIME 05/07/21 05/07/21 Unknown History levothyroxine 50 mcg tablet 25 mcg PO MOWEFR@62905/07/21 Unknown History loratadine 10 mg tablet 10 mg PO DAILY 05/07/21 05/07/21 Unknown History Physical Exam Vital Signs and Narrative: Vital Signs: Last Vital Signs Temp 98.5 F 12/20/22 18:07 Pulse 93 12/20/22 18:07 Resp 22 H 12/20/22 18:07 BP 147/64 H 12/20/22 18:07 Pulse Ox 94 12/20/22 18:07 O2 Del Method Nasal Cannula 12/20/22 18:07 O2 Flow Rate 2.5 12/20/22 18:07 BMI result Body Mass Index 34.0 Constitutional - Awake and Alert, No apparent distress Eyes - PERRLA, EOMI Cardiovascular - S1S2, RRR, 4+ pitting edema BLE to the knees Respiratory - Normal lung expansion, mild respiratory distress on 2.5 L supplemental O2 via nasal cannula, pursed lip breathing noted, able to speak in short phrases only, diminished RLL, otherwise CTA Gastrointestinal - NT / ND; +BS; No rebound or guarding Extremities - no calf tenderness bilaterally. b/l lymphedema. See skin Skin - Warm/Dry. Significant swelling/edema BLE with well demarcated erythema the the left foot/ankle Neurological - Alert & oriented x3 Results Labs 12/20/22 19:31 12/20/22 17:05 Labs: Laboratory Results - last 24 hr 12/20/22 12/20/22 12/20/22 17:05 17:05 17:05 MCV MCH MCHC RDW Plt Count MPV Immature Gran % (Auto) Neut % (Auto) Lymph % (Auto) [place] % (Auto) Eos % (Auto) Baso % (Auto) Lymph # (Auto) [place] # (Auto) Eos # (Auto) Baso # (Auto) Abs Immat Gran (auto) Absolute Neuts (auto) Absolute Nucleated RBC Nucleated RBC % (auto) PT 10.7 INR 0.9 D-Dimer High Sensitivty 386 VBG pH VBG pCO2 VBG pO2 VBG HCO3 VBG O2 Saturation VBG Base Excess Anion Gap 20 Estim Creat Clear Calc 26.9 Estimated GFR 36 Random Glucose 96 Lactic Acid Lactic Acid F/U @ 2Hr Calcium 10.6 H D Magnesium 2.1 Total Bilirubin 1.0 Direct Bilirubin 0.3 AST 32 H ALT 15 Alkaline Phosphatase 105 Troponin I High Sens 20.3 H B-Natriuretic Peptide Total Protein 9.7 H Albumin 4.6 Influenza Type A (PCR) Influenza Type B (PCR) RSV RNA Qual (PCR) SARS-CoV-2 RNA (RT-PCR) 12/20/22 12/20/22 12/20/22 17:05 17:05 19:31 MCV 90.0 MCH 30.5 MCHC 33.9 RDW 12.9 Plt Count 283 MPV 9.9 Immature Gran % (Auto) 0.4 Neut % (Auto) 70.2 Lymph % (Auto) 20.0 [place] % (Auto) 6.4 Eos % (Auto) 2.3 Baso % (Auto) 0.7 Lymph # (Auto) 2.2 [place] # (Auto) 0.7 Eos # (Auto) 0.3 Baso # (Auto) 0.1 Abs Immat Gran (auto) 0.04 H Absolute Neuts (auto) 7.6 Absolute Nucleated RBC 0.000 Nucleated RBC % (auto) 0.0 PT INR D-Dimer High Sensitivty VBG pH VBG pCO2 VBG pO2 VBG HCO3 VBG O2 Saturation VBG Base Excess Anion Gap Estim Creat Clear Calc Estimated GFR Random Glucose Lactic Acid 3.0 H* Lactic Acid F/U @ 2Hr Calcium Magnesium Total Bilirubin Direct Bilirubin AST ALT Alkaline Phosphatase Troponin I High Sens B-Natriuretic Peptide 64 Total Protein Albumin Influenza Type A (PCR) Influenza Type B (PCR) RSV RNA Qual (PCR) SARS-CoV-2 RNA (RT-PCR) 12/20/22 12/20/22 12/20/22 19:31 19:31 20:17 MCV MCH MCHC RDW Plt Count MPV Immature Gran % (Auto) Neut % (Auto) Lymph % (Auto) [place] % (Auto) Eos % (Auto) Baso % (Auto) Lymph # (Auto) [place] # (Auto) Eos # (Auto) Baso # (Auto) Abs Immat Gran (auto) Absolute Neuts (auto) Absolute Nucleated RBC Nucleated RBC % (auto) PT INR D-Dimer High Sensitivty VBG pH 7.47 H VBG pCO2 52 VBG pO2 57 VBG HCO3 38 H VBG O2 Saturation 85.0 VBG Base Excess 12.9 Anion Gap Estim Creat Clear Calc Estimated GFR Random Glucose Lactic Acid Lactic Acid F/U @ 2Hr 1.5 Calcium Magnesium Total Bilirubin Direct Bilirubin AST ALT Alkaline Phosphatase Troponin I High Sens B-Natriuretic Peptide Total Protein Albumin Influenza Type A (PCR) NEGATIVE Influenza Type B (PCR) NEGATIVE RSV RNA Qual (PCR) NEGATIVE SARS-CoV-2 RNA (RT-PCR) NEGATIVE Imaging Radiologist's Impressions: Impressions Chest X-Ray 12/20/22 17:21 IMPRESSION: 1. No acute cardiopulmonary findings. 2. Chronic changes suggesting emphysema. 3. Chronic appearing right-sided rib deformities. Venous Duplex 12/20/22 18:22 IMPRESSION: No DVT demonstrated in the bilateral lower extremity. Peroneal veins not well visualized bilaterally. Assessment and Plan (1) COPD exacerbation: Status: Acute (2) Cellulitis of left ankle: Status: Acute (3) Acute and chronic respiratory failure: Status: Acute Plan 87-year-old female with history of diastolic dysfunction, COPD, paroxysmal atrial fibrillation not on anticoagulation, hypothyroidism, hypertension, lymphedema, and obesity admitted for further management of acute on chronic hypoxemic respiratory failure secondary to CHF and COPD exacerbation. #Acute on chronic hypoxemic respiratory failure -likely secondary to CHF and COPD exacerbation as below -VBG shows mild respiratory alkalosis, compensating -CXR negative for acute cardiopulmonary abnormality -continue supplemental O2 to maintain oximetry around 92% -plan as below -will likely need home O2 evaluation as has been recommended by PCP for home O2 but has not completed appropriate testing # acute CHF exacerbation -BNP normal, but clinically appears in CHF exacerbation -echocardiogram ordered -60 mg IV Lasix daily -cardiac diet -strict I&O -daily weights -cardiology consult -admit to telemetry # acute COPD exacerbation -CXR negative for pneumonia -IV azithromycin for pleiotropic affect -DuoNebs q.4h while awake -albuterol q.2h p.r.n. -IV methylprednisolone 40 mg b.i.d. # acute cellulitis left lower extremity - chronic lymphedema with well demarcated erythema/warmth/pain LLE - IV cefazolin 1g BID (if crcl improve, increased to 1 g t.i.d. per pharmacy)- initiated 12/20 - mild leukocytosis 10.9, no sepsis. Follow CBC #Recent recurrent syncope -suspect cardiogenic in nature -EKG without significant arrhythmia, occasional PVCs -monitor on telemetry -echocardiogram -check orthostatic vital signs -cardiology consult #Acute hypokalemia -likely secondary to diuretic and albuterol usage -repleted in the ED -follow BMP/lytes #Paroxysmal atrial fibrillation-rate controlled -EKG sinus tachycardia with PVC's -Not on anticoagulation # chronic lymphedema -Wound RN consult given significant weeping -outpatient follow-up with wound clinic # hypothyroidism -continue levothyroxine # hypertension -continue Lasix, amlodipine # HLD -continue statin DVT [id number] adjusted DNR/DNI Med rec pending Patient requires inpatient stay of at least 2 midnights for management of acute on chronic hypoxemic respiratory failure secondary to CHF and COPD exacerbation requiring supplemental O2, IV diuresis, IV steroids, cardiac monitoring given recent syncopal episodes, and expert consultation Time Spent With Patient Time: Total time managing care of this patient today ____ minutes. Quality Stroke Does the patient have a stroke diagnosis?: No VTE Prior VTE?: No VTE Risk Level:: Medical - moderate - high VTE Device Contraindication: Treatment Not Indicated VTE Drug Contraindication: N/A - Med Ordered
[2022-12-20] MEDS: Furosemide 100 MG/10 ML VIAL 60 MG IVPUSH (23:03)
[2022-12-20] MEDS: methylPREDNISolone Sod Succ 125 MG/2 ML VIAL IVPUSH (23:05)
[2022-12-20] MEDS: Enoxaparin Sodium 30 MG/0.3 ML SYRINGE SUBCUT (23:05)
[2022-12-20] MEDS: Azithromycin 500 MG in 0.9 % Sodium Chloride 250 ML 125 MG IV (23:06)
[2022-12-20] MEDS: 0.9 % Sodium Chloride Flush 3 ML SYRINGE IVFLUSH (23:06)
[2022-12-20] MEDS: Docusate Sodium 100 MG CAPSULE PO (23:07)
[2022-12-20] MEDS: ondansetron HCL 4 MG/2 ML VIAL IVPUSH (23:08)
[2022-12-20 23:12] LABS: Troponin-I High Sensitivity 23.8 ng/L (<3.5-17.0)
[2022-12-20] MEDS: Acetaminophen 325 MG TABLET 650 MG PO (23:15)
[2022-12-21] VITALS (10 sets, daily range): BP systolic 130–182; BP diastolic 70–86; PULSE 77–110; RESP 15–20; TEMP 35.8–37.1; O2SAT 91–96
--- NOTE | 2022-12-21 03:52 | PC.NURSE ---
patient report was given to Arthur
[2022-12-21] MEDS: traMADoL HCL 50 MG TABLET PO ×3 (05:31→22:41)
[2022-12-21 06:42] LABS: Basophils Percent Auto 0.4 % (0-2); Eosinophils Percent Auto 0.1 % (0-4); Hematocrit 40.2 % (37.0-47.0); Hemoglobin 13.3 g/dl (12.0-16.0); Imm Gran Abs Auto 0.05 X10*3/uL (0.00-0.03); Imm Gran Pct Auto 0.6 % (0.0-0.4); Lymphocytes Absolute Auto 0.5 X10*3/uL (1.2-4.9); Lymphocytes Percent Auto 6.6 % (20-40); MANUAL DIFF FLAG SCAN; Mean Corpuscular HGB Conc 33.1 g/dl (31.0-35.0); Mean Corpuscular Hemoglobin 30.5 pg (27.0-33.0); Mean Corpuscular Volume 92.2 fL (80.0-98.0); Mean Platelet Volume 10.8 fL (9.4-12.3); Monocytes Absolute Auto 0.1 X10*3/uL (0.1-1.2); Monocytes Percent Auto 0.6 % (2-11); Neutrophils Absolute Auto 7.3 x10*3/uL (2.0-8.3); Neutrophils Percent Auto 91.7 % (45-73); Platelet Count 255 X10*3/uL (160-400); Red Blood Count 4.36 X10*6/uL (4.20-5.50); Red Cell Distribution Width 12.9 % (11.0-16.0); SCAN SMEAR FLAG 1
--- NOTE | 2022-12-21 07:00 | CA_ITS ---
Transthoracic Echocardiogram Patient (Last, First, Middle): Vane Salinas, Gender: Female Date of : 1935 Age: 87 Procedure Date: 12/21/2022 Procedure Type: Transthoracic Echocardiogram Location: [facility] [place] Height: 152.4 cm Weight: 78.93 kg BSA: 1.76 m2 Heart Rate: 101 bpm BP: 162 / 86 mmHg Wash Driller Helper: ROSINA Cain MD: Yarely CUENCA Hand Former Helper: Abhilash Small MD Symptoms: syncope, new onset chf Study Quality: Technically Difficult ECG Rhythm: Tachycardia Conclusions: - 1. Normal LV systolic function with impaired relaxation filling pattern 2. Early mild aortic stenosis 3. Right atrial pressures are elevated 4. No gross pericardial effusion Findings Left Ventricle Normal left ventricular size, thickness, and systolic function. The visually estimated ejection fraction is between 60-65%. Spectral Doppler is indicative of an impaired relaxation filling pattern. E/E prime ratio is between 8 and 15 consistent with indeterminate filling pressures. Right Ventricle Normal right ventricular cavity size. There is mildly decreased right ventricular systolic function. Atria The left atrium is normal in size. Interatrial shunt cannot be excluded. The right atrium is normal in size. Aortic Valve The aortic valve was not well visualized. There is mild calcification of the aortic valve. There is mild aortic valve stenosis. The peak aortic gradient is 12 mmHg.The mean gradient is 7 mmHg. The aortic valve area is 1.60 cm2. There is no aortic valve regurgitation. Mitral Valve There is mild anterior and posterior mitral leaflet thickening. There is mild mitral annular calcification. There is mild mitral valve regurgitation. There is no mitral valve stenosis. Pulmonic Valve The pulmonic valve was not well visualized. Tricuspid Valve Likely normal tricuspid valve structure and function. Tricuspid regurgitation envelope is inadequate for calculation of right ventricular systolic pressure. Significantly elevated right atrial pressure. Great Vessels All visible segments of the aorta are normal in size. The pulmonary artery was not well visualized. Venous The inferior vena cava is moderately dilated and collapses less than 50% with inspiration. Pericardium/Pleural There is no evidence of pericardial effusion. Prior Study Comparison Changes noted compared to prior study dated: 08/03/2020. Right atrial pressures are significantly elevated based on this study Measurements 2D Linear Measurements IVSd: 0.97 0.6-0.9/0.6-1.0 cm LVIDd: 4.03 3.9-5.3/4.2-5.9 cm LVIDd Index: 2.29 2.4-3.2/2.2-3.1 cm/m2 LVIDs: 3.56 2.0-3.6 cm LVPWd: 0.92 0.7-1.1 cm LA Diam: 3.90 2.7-3.8/3.0-4.0 cm LAIDs Index: 2.22 1.5-2.3 cm/m2 LV Mass: 147.38 67-162/88-224 g LV Mass Index: 83.74 43-95/49-115 g/m2 LVOT Diam: 1.80 3.0+(-)1.3 cm 2D Systolic Function EF 4C: 73.30 >55% EF 2C: 54.20 >55% EF BiP: 64.80 >55% Mitral Valve MV Pk E: 1.08 MV PK A: 1.12 MV Decel Time: 230.00 E/A: 1.00 E'Lateral: 8.59 E'Medial: 5.44 E/E' Med: 19.90 E/E' Lat: 12.60 PHT: 67.00 MVA PHT: 3.28 Decel [place]: 4.69 Aortic Valve AoV Pk [place]: 1.73 AoV Mn [place]: 1.24 AoV VTI: 0.37 AoV Pk Grad: 12.00 Aov Mn Grad: 7.00 BEN Cont.VTI: 1.60 LVOT LVOT Pk [place]: 1.22 LVOT Mn [place]: 0.79 LVOT VTI: 0.23 LVOT Pk Grad: 6.00 LVOT Mn Grad: 3.00 LVOT Diam: 1.80 LVOT Area: 2.54 Diastolic Function MV Pk E: 1.08 MV Pk A: 1.12 E/A: 1.00 E'Medial: 5.44 E/E' Med: 19.90 E' Laterial: 8.59 E/E' Lat: 12.60 Right Ventricle TAPSE (mm): 16.70 TVS' [place]: 13.70 Tricuspid Valve TR Pk [place]: 1.66 TR Pk Grad: 11.00 RA Press: 15.00 Great Vessels Aorta Sinus of Valsalva: 3.00 2.0-3.5 cm Ao Asc: 3.00 2.1-3.4 cm Pulmonary Valve PV Pk [place]: 1.28 Peak PV Grad: 7.00 Updated in Other Vendor System with Status of Final Abhilash Small MD electronically signed on 12/21/2022 2:32:35 PM with status of Final
[2022-12-21 07:11] LABS: Blood Urea Nitrogen 9 mg/dL (9-16); Creatinine Clr Calc Pharmacy 26.8; Estimated Glomerular Filt Rate 36; Glucose Random 162 mg/dL (60-115); Magnesium 1.9 mg/dL (1.6-2.6)
[2022-12-21 07:18] LABS: Anion Gap 16 (12-20); Calcium 9.2 mg/dL (8.4-10.2); Carbon Dioxide 28 mmol/L (22-29); Chloride 100 mmol/L (96-108); Potassium 3.7 mmol/L (3.3-5.1); Sodium 140 mmol/L (135-145)
[2022-12-21 07:49] LABS: SLIDE REVIEW VERIFIED
[2022-12-21] MEDS: Albuterol/Iprat 2.5/0.5MG 3 ML AMPUL.NEB INHALE (07:49)
[2022-12-21] MEDS: Furosemide 100 MG/10 ML VIAL 60 MG IVPUSH (09:18)
[2022-12-21] MEDS: methylPREDNISolone Sod Succ 40 MG/ML VIAL IVPUSH (09:19)
[2022-12-21] MEDS: 0.9 % Sodium Chloride Flush 3 ML SYRINGE IVFLUSH ×2 (09:19→14:02)
--- NOTE | 2022-12-21 10:17 | PHA.MEDREC ---
Pharmacy Consult ? Medication Reconciliation Pharmacy has completed the medication reconciliation. spoke to patient at bedside
--- NOTE | 2022-12-21 10:57 | PM.CNCAR ---
History of Present Illness History of Present Illness Date of Service: 12/21/22 Requesting physician: Beto Brown Consult reason: congestive heart failure Chief complaint: COPD exacerbation, new onset CHF, syncope Narrative: I was consulted to see Vane in cardiology consultation today for respiratory failure. Patient 87-year-old female has seen Dr. Villalta in the past with no prior history of coronary artery disease or myocardial infarction with findings suggestive of right heart failure in the setting of underlying COPD. Patient has being getting progressively increasing shortness of breath. she says that she usually gets short of breath walking very short distances but got more short of breath and went to primary care physician's office who sent her to the emergency room. Here she was noted to be hypoxic and was noted to probably be in COPD exacerbation with fluid buildup suggestive of decompensated heart failure although BNP is within normal limits. She has been admitted and her oxygen has corrected quickly with the oxygen replacement therapy. She has been given diuretic therapy and improving. She denies any shortness of breath. She has lot of non cardiac symptoms with issues with going to frequent urination. She also was noted to have cellulitis in the lower extremity. She denies any chest pain, palpitations, lightheadedness, syncope. No clear history of orthopnea although this is difficult to determine from her. Review of Systems Constitutional: Constitutional: Reports weakness Eyes: Eyes: Reports no additional eye complaints Cardiovascular: Cardiovascular: Denies chest pain, Reports leg edema, Denies lightheadedness, Denies Loss of Consciousness, Denies palpitations and Reports dyspnea on exertion Respiratory: Respiratory: Reports no additional respiratory complaints and Reports dyspnea on exertion Gastrointestinal: Gastrointestinal: Reports no additional gastrointestinal complaints Genitourinary: Genitourinary: Reports no additional female genitourinary complaints Musculoskeletal: Musculoskeletal: Reports no additional musculoskeletal complaints Neurologic: Reports weakness Endocrine: Endocrine: Denies palpitations Allergic/Immunologic: Allergic/Immunologic: Reports no additional allergic/immunologic complaints [facility] Past Medical History Medical History COPD (chronic obstructive pulmonary disease) HTN (hypertension) Hyperlipidemia Hypothyroidism PAF (paroxysmal atrial fibrillation) Family History Family History Father History of heart disease Mother History of heart disease Social History Social History Household Members: None Housing: House Alcohol intake: never Patient Tobacco Use Status: Former Tobacco user Smoked in Last 30 Days: No Use of substances other than those prescribed or required for medical reasons: No Currently Displaying Signs/Symptoms of Drug Intoxication Withdrawal: No Have you been hit, kicked, punched, or otherwise hurt by someone within the past year? If so, by whom?: No Do you feel safe in your current relationship?: No Current Relationship Is there a partner from a previous relationship who is making you feel unsafe now?: No Are you made to feel afraid or neglected: No Advance Directives: No Advance Directives Information Provided: No Do you have thoughts of harming others: None Do you have a plan to hurt others: No Plan Recently lost weight without trying: No Nutrition Risks: No Nutritional Risk Patient : No : No Poor oral hygiene: No Meds Allergies Allergy/AdvReac Type Severity Reaction Status Date / Time adhesive tape [Adhesive Tape] Allergy Unknown RASH Verified 12/20/22 16:50 codeine [Codeine] Allergy Unknown SWELLING Verified 12/20/22 16:50 Iodinated Contrast Media Allergy Unknown UNKNOWN Verified 12/20/22 16:50 [IV Dye, Iodine Containing] iodine [Iodine] Allergy Unknown UNKNOWN Verified 12/20/22 16:50 oxycodone [Percocet] Allergy Unknown unknown Verified 12/20/22 16:50 papaya [Papaya] Allergy Unknown HIVES Verified 12/20/22 16:50 pineapple [Pineapple] Allergy Unknown HIVES Verified 12/20/22 16:50 strawberry [[place]] Allergy Unknown HIVES Verified 12/20/22 16:50 Codeine Phosphate Allergy Unknown unknown Uncoded 11/30/20 15:34 Novocain Allergy Unknown unknown Uncoded 11/30/20 15:34 From Vicodin AdvReac Unknown NAUSEA & Uncoded 11/30/20 15:34 VOMITING Active Medications: Current Medications Acetaminophen (Acetaminophen 325 Mg Tablet) 650 mg PO Q6H PRN PRN Reason: Pain, Mild (Pain Scale 1-3) Last Admin: 12/20/22 23:15 Dose: 650 mg Albuterol Sulfate (Albuterol Sulfate (0.083%) 2.5 Mg/3 Ml Vial.Neb) 2.5 mg INHALE Q2H PRN PRN Reason: Shortness of Breath/Wheezing Albuterol/Ipratropium (Albuterol/Iprat 2.5/0.5mg 3 Ml Ampul.Neb) 3 ml INHALE RQ4H WHILE AWAKE [facility] Last Admin: 12/21/22 07:49 Dose: 3 ml Docusate Sodium (Docusate Sodium 100 Mg Capsule) 100 mg PO DAILY PRN PRN Reason: Constipation Last Admin: 12/20/22 23:07 Dose: 100 mg Enoxaparin Sodium (Enoxaparin Sodium 30 Mg/0.3 Ml Syringe) 30 mg SUBCUT Q24H [facility] Last Admin: 12/20/22 23:05 Dose: 30 mg Furosemide (Furosemide 100 Mg/10 Ml Vial) 60 mg IVPUSH DAILY [facility]; Protocol Last Admin: 12/21/22 09:18 Dose: 60 mg Cefazolin Sodium 1 gm/ Sodium (Chloride) 50 mls @ 100 mls/hr IV Q12H [facility] Last Infusion: 12/21/22 10:21 Dose: Infused Azithromycin 500 mg/ Sodium (Chloride) 250 mls @ 125 mls/hr IV Q24H [facility] Stop: 12/23/22 01:59 Last Infusion: 12/21/22 01:32 Dose: Infused Methylprednisolone Sodium Succinate (Methylprednisolone Sod Succ 40 Mg/Ml Vial) 40 mg IVPUSH Q12H [facility] Last Admin: 12/21/22 09:19 Dose: 40 mg Ondansetron HCl (Ondansetron Hcl 4 Mg/2 Ml Vial) 4 mg IVPUSH Q8H PRN PRN Reason: Nausea and Vomiting Last Admin: 12/20/22 23:08 Dose: 4 mg Pharmacy Consult (Consult Rx Perform Med Rec) 1 each MISCELLANE ONCE PRN PRN Reason: Consult order Sodium Chloride (0.9 % Sodium Chloride Flush 3 Ml Syringe) 3 ml IVFLUSH QSHIFT [facility] Last Admin: 12/21/22 09:19 Dose: 3 ml Tramadol HCl (Tramadol Hcl 50 Mg Tablet) 50 mg PO Q6H PRN PRN Reason: Pain, Moderate(Pain Scale 4-6) Last Admin: 12/21/22 05:31 Dose: 50 mg Home Medications Medication Instructions Recorded Confirmed Last Taken Type amlodipine 5 mg tablet 5 mg PO BID 07/13/20 12/21/22 12/20/22 History furosemide 40 mg tablet 60 mg PO DAILY 07/13/20 12/21/22 12/20/22 History gabapentin 300 mg capsule 300 mg PO BID PRN Pain 07/13/20 12/21/22 12/20/22 History ipratropium bromide 17 2 puff inhalation QID PRN 07/13/20 12/21/22 12/20/22 History mcg/actuation HFA aerosol inhaler Shortness Of Breath levothyroxine 50 mcg tablet 50 mcg PO SUTUTHSA@0630 07/13/20 12/21/22 12/20/22 History magnesium oxide 400 mg (241.3 mg 400 mg PO BEDTIME 07/13/20 12/21/22 12/20/22 History magnesium) tablet simvastatin 10 mg tablet 10 mg PO DAILY 07/13/20 12/21/22 12/20/22 History levothyroxine 50 mcg tablet 75 mcg PO MOWEFR@0630 05/07/21 12/21/22 12/20/22 History loratadine 10 mg tablet 10 mg PO DAILY PRN Allergic 05/07/21 12/21/22 12/20/22 History Symptoms aspirin 81 mg tablet,delayed 81 mg PO DAILY 12/21/22 12/21/22 12/20/22 History release famotidine 20 mg tablet 20 mg PO BID 12/21/22 12/21/22 12/20/22 History montelukast 10 mg tablet 10 mg PO DAILY 12/21/22 12/21/22 12/20/22 History multivitamin 1 tab PO DAILY 12/21/22 12/21/22 12/20/22 History Physical Exam Vital Signs: Vital Signs: Last Vital Signs Temp 97.5 F 12/21/22 07:45 Pulse 77 12/21/22 07:54 Resp 20 12/21/22 07:54 BP 166/77 H 12/21/22 07:45 Pulse Ox 93 12/21/22 07:45 O2 Del Method Nasal Cannula 12/21/22 07:45 O2 Flow Rate 1 12/21/22 07:45 BMI result Body Mass Index 34.0 Const: General: cooperative, comfortable, alert and awake Nutritional Appearance: obese Orientation/consciousness: patient oriented x3 HEENT: Head: Yes normocephalic and Yes atraumatic Neck: Neck: Yes trachea midline, Yes supple and Yes JVD Resp: Effort & Inspection: normal respiratory effort Auscultation: no crackles, no rales and diminished lung sounds Cardio: Jugular venous distension: no JVD Palpation: normal PMI Rate: regular rate Rhythm: regular rhythm Heart sounds: S1 normal heart sound present, S2 normal heart sound present, no click, no gallops, no murmurs and no rubs GI: Auscultation: normal bowel sounds Skin: General skin exam: no rashes or lesions noted Neuro: General: patient oriented x3 and no focal motor deficits Extrem: General: No clubbing, No cyanosis and Yes edema Objective Labs and Meds 12/21/22 06:15 12/21/22 06:15 Lab results: Laboratory Results - last 24 hr 12/20/22 12/20/22 12/20/22 17:05 17:05 17:05 WBC RBC Hgb Hct MCV MCH MCHC RDW Plt Count MPV Immature Gran % (Auto) Neut % (Auto) Lymph % (Auto) [place] % (Auto) Eos % (Auto) Baso % (Auto) Lymph # (Auto) [place] # (Auto) Eos # (Auto) Baso # (Auto) Abs Immat Gran (auto) Absolute Neuts (auto) Absolute Nucleated RBC Nucleated RBC % (auto) Smear Tech's Comments PT 10.7 INR 0.9 D-Dimer High Sensitivty 386 VBG pH VBG pCO2 VBG pO2 VBG HCO3 VBG O2 Saturation VBG Base Excess Sodium 140 Potassium 2.8 L Chloride 98 Carbon Dioxide 25 Anion Gap 20 BUN 9 Creatinine 1.39 Estim Creat Clear Calc 26.9 Estimated GFR 36 Random Glucose 96 Lactic Acid Lactic Acid F/U @ 2Hr Calcium 10.6 H D Magnesium 2.1 Total Bilirubin 1.0 Direct Bilirubin 0.3 AST 32 H ALT 15 Alkaline Phosphatase 105 Troponin I High Sens 20.3 H B-Natriuretic Peptide Total Protein 9.7 H Albumin 4.6 Influenza Type A (PCR) Influenza Type B (PCR) RSV RNA Qual (PCR) SARS-CoV-2 RNA (RT-PCR) 12/20/22 12/20/22 12/20/22 17:05 17:05 19:31 WBC 10.9 H RBC 4.82 Hgb 14.7 Hct 43.4 MCV 90.0 MCH 30.5 MCHC 33.9 RDW 12.9 Plt Count 283 MPV 9.9 Immature Gran % (Auto) 0.4 Neut % (Auto) 70.2 Lymph % (Auto) 20.0 [place] % (Auto) 6.4 Eos % (Auto) 2.3 Baso % (Auto) 0.7 Lymph # (Auto) 2.2 [place] # (Auto) 0.7 Eos # (Auto) 0.3 Baso # (Auto) 0.1 Abs Immat Gran (auto) 0.04 H Absolute Neuts (auto) 7.6 Absolute Nucleated RBC 0.000 Nucleated RBC % (auto) 0.0 Smear Tech's Comments PT INR D-Dimer High Sensitivty VBG pH VBG pCO2 VBG pO2 VBG HCO3 VBG O2 Saturation VBG Base Excess Sodium Potassium Chloride Carbon Dioxide Anion Gap BUN Creatinine Estim Creat Clear Calc Estimated GFR Random Glucose Lactic Acid 3.0 H* Lactic Acid F/U @ 2Hr Calcium Magnesium Total Bilirubin Direct Bilirubin AST ALT Alkaline Phosphatase Troponin I High Sens B-Natriuretic Peptide 64 Total Protein Albumin Influenza Type A (PCR) Influenza Type B (PCR) RSV RNA Qual (PCR) SARS-CoV-2 RNA (RT-PCR) 12/20/22 12/20/22 12/20/22 19:31 19:31 20:17 WBC RBC Hgb Hct MCV MCH MCHC RDW Plt Count MPV Immature Gran % (Auto) Neut % (Auto) Lymph % (Auto) [place] % (Auto) Eos % (Auto) Baso % (Auto) Lymph # (Auto) [place] # (Auto) Eos # (Auto) Baso # (Auto) Abs Immat Gran (auto) Absolute Neuts (auto) Absolute Nucleated RBC Nucleated RBC % (auto) Smear Tech's Comments PT INR D-Dimer High Sensitivty VBG pH 7.47 H VBG pCO2 52 VBG pO2 57 VBG HCO3 38 H VBG O2 Saturation 85.0 VBG Base Excess 12.9 Sodium Potassium Chloride Carbon Dioxide Anion Gap BUN Creatinine Estim Creat Clear Calc Estimated GFR Random Glucose Lactic Acid Lactic Acid F/U @ 2Hr 1.5 Calcium Magnesium Total Bilirubin Direct Bilirubin AST ALT Alkaline Phosphatase Troponin I High Sens B-Natriuretic Peptide Total Protein Albumin Influenza Type A (PCR) NEGATIVE Influenza Type B (PCR) NEGATIVE RSV RNA Qual (PCR) NEGATIVE SARS-CoV-2 RNA (RT-PCR) NEGATIVE 12/20/22 12/21/22 12/21/22 22:45 06:15 06:15 WBC 8.0 RBC 4.36 Hgb 13.3 Hct 40.2 MCV 92.2 MCH 30.5 MCHC 33.1 RDW 12.9 Plt Count 255 MPV 10.8 Immature Gran % (Auto) 0.6 H Neut % (Auto) 91.7 H Lymph % (Auto) 6.6 L [place] % (Auto) 0.6 L Eos % (Auto) 0.1 Baso % (Auto) 0.4 Lymph # (Auto) 0.5 L [place] # (Auto) 0.1 Eos # (Auto) 0.0 Baso # (Auto) 0.0 Abs Immat Gran (auto) 0.05 H Absolute Neuts (auto) 7.3 Absolute Nucleated RBC 0.000 Nucleated RBC % (auto) 0.0 Smear Tech's Comments VERIFIED PT INR D-Dimer High Sensitivty VBG pH VBG pCO2 VBG pO2 VBG HCO3 VBG O2 Saturation VBG Base Excess Sodium 140 Potassium 3.7 D Chloride 100 Carbon Dioxide 28 Anion Gap 16 BUN 9 Creatinine 1.40 Estim Creat Clear Calc 26.8 Estimated GFR 36 Random Glucose 162 H Lactic Acid Lactic Acid F/U @ 2Hr Calcium 9.2 D Magnesium 1.9 Total Bilirubin Direct Bilirubin AST ALT Alkaline Phosphatase Troponin I High Sens 23.8 H B-Natriuretic Peptide Total Protein Albumin Influenza Type A (PCR) Influenza Type B (PCR) RSV RNA Qual (PCR) SARS-CoV-2 RNA (RT-PCR) Imaging Radiologist's impression: Impressions Chest X-Ray 12/20/22 17:21 IMPRESSION: 1. No acute cardiopulmonary findings. 2. Chronic changes suggesting emphysema. 3. Chronic appearing right-sided rib deformities. Venous Duplex 12/20/22 18:22 IMPRESSION: No DVT demonstrated in the bilateral lower extremity. Peroneal veins not well visualized bilaterally. Assessment and Plan (1) Acute and chronic respiratory failure: Status: Acute Patient presents with hypoxic respiratory failure most likely related to COPD exacerbation. There is component of mild right heart failure. Clinically appears to be mildly fluid overloaded. Would suggest an echocardiogram. Continue gentle diuresis. Strict intake and output chart needs to be pursued. Consider addition of Aldactone 12.5 mg to her regimen. Continue to correct her hypoxemic respiratory failure with oxygen replacement therapy which seems to be working well. Consider for outpatient oxygen therapy. Continue management of COPD as per the hospitalist team. Will sign of the case at this point time and follow-up as outpatient. Time Spent With Patient Time: Total time managing care of this patient today ____ minutes. Procedures Date of Service Date of Service: 12/21/22
[2022-12-21] MEDS: Acetaminophen 325 MG TABLET 650 MG PO (14:01)
--- NOTE | 2022-12-21 14:27 | P.PNIM_ITS ---
Subjective Subjective Date of Service: 12/21/22 Interval History: seen this morning for follow-up on hypoxic respiratory failure, CHF and COPD exacerbation as well as cellulitis, patient with multiple complaints, requesting for oxygen despite stable oxygenation on room air, not happy with food, complaining of shortness of breath, but talking in full sentences, shouting with severe left leg pain while dressing being removed, and leg not touched,wants to sit up due to leg cramps, no nausea, no vomiting, no abdominal pain tolerating diet no urinary symptoms Review of Systems [employer] no headache no dizziness CVS no chest pain no palpitations frequent urination likely due to diuretics, no burning rest all other system reviewed and negative Physical Exam Vital Signs: Vital Signs: Last Vital Signs Temp 97.2 F 12/21/22 11:34 Pulse 98 12/21/22 11:34 Resp 20 12/21/22 11:34 BP 162/79 H 12/21/22 11:34 Pulse Ox 93 12/21/22 11:34 O2 Del Method Nasal Cannula 12/21/22 11:34 O2 Flow Rate 1 12/21/22 11:34 BMI result Body Mass Index 34.0 Const: Other: General awake alert x3,resting comfortably in no acute distress. anicteric sclera Neck supple no JVD. CVS regular rate rhythm, no murmurs Respiratory lungs clear to auscultation, no respiratory distress, no wheeze, no rhonchi, few bibasilar dry crackles. Gastrointestinal abdomen soft, nontender, bowel sounds audible, no guarding , no rigidity. Extremities bilateral edema, mild hyperemia lower legs no warmth, likely due to chronic venous stasis, no weeping no open wounds or lesions. Neuro nonfocal , moving all 4 extremity speech clear. psych appropriate affect skin no rash Objective Data Active Medications Acetaminophen (Acetaminophen 325 Mg Tablet) 650 mg PO Q6H PRN PRN Reason: Pain, Mild (Pain Scale 1-3) Last Admin: 12/21/22 14:01 Dose: 650 mg Documented By: MIHAI Albuterol Sulfate (Albuterol Sulfate (0.083%) 2.5 Mg/3 Ml Vial.Neb) 2.5 mg INHALE Q2H PRN PRN Reason: Shortness of Breath/Wheezing Albuterol/Ipratropium (Albuterol/Iprat 2.5/0.5mg 3 Ml Ampul.Neb) 3 ml INHALE RQ4H WHILE AWAKE [facility] Last Admin: 12/21/22 11:22 Dose: Not Given Documented By: EVE Non-Admin Reason: Patient Asleep Amlodipine Besylate (Amlodipine Besylate 5 Mg Tablet) 5 mg PO DAILY [facility]; Protocol Aspirin (Aspirin Enteric Coated 81 Mg Tablet.Dr) 81 mg PO DAILY [facility] Docusate Sodium (Docusate Sodium 100 Mg Capsule) 100 mg PO DAILY PRN PRN Reason: Constipation Last Admin: 12/20/22 23:07 Dose: 100 mg Documented By: ROBERTO Enoxaparin Sodium (Enoxaparin Sodium 30 Mg/0.3 Ml Syringe) 30 mg SUBCUT Q24H [facility] Last Admin: 12/20/22 23:05 Dose: 30 mg Documented By: ROBERTO Famotidine (Famotidine 20 Mg Tablet) 20 mg PO BID [facility] Furosemide (Furosemide 100 Mg/10 Ml Vial) 60 mg IVPUSH DAILY [facility]; Protocol Last Admin: 12/21/22 09:18 Dose: 60 mg Documented By: MIHAI Cefazolin Sodium 1 gm/ Sodium (Chloride) 50 mls @ 100 mls/hr IV Q12H [facility] Last Infusion: 12/21/22 10:21 Dose: 0 mls/hr Documented By: MIHAI Azithromycin 500 mg/ Sodium (Chloride) 250 mls @ 125 mls/hr IV Q24H [facility] Stop: 12/23/22 01:59 Last Infusion: 12/21/22 01:32 Dose: 125 mls/hr Documented By: ROBERTO Levothyroxine Sodium (Levothyroxine Sodium 50 Mcg Tablet) 50 mcg PO SUTUTHSA@0630 [facility] Levothyroxine Sodium (Levothyroxine Sodium 75 Mcg Tablet) 75 mcg PO MOWEFR@0630 [facility] Loratadine (Loratadine 10 Mg Tablet) 10 mg PO DAILY PRN PRN Reason: Allergic Symptoms Magnesium Oxide (Magnesium Oxide 400 Mg Tablet) 400 mg PO BEDTIME [facility] Methylprednisolone Sodium Succinate (Methylprednisolone Sod Succ 40 Mg/Ml Vial) 40 mg IVPUSH Q12H [facility] Last Admin: 12/21/22 09:19 Dose: 40 mg Documented By: MIHAI Montelukast Sodium (Montelukast Sodium 10 Mg Tablet) 10 mg PO DAILY [facility] Multivitamins/Vitamin C (Multivitamin Tablet) 1 tab PO DAILY [facility] Ondansetron HCl (Ondansetron Hcl 4 Mg/2 Ml Vial) 4 mg IVPUSH Q8H PRN PRN Reason: Nausea and Vomiting Last Admin: 12/20/22 23:08 Dose: 4 mg Documented By: ROBERTO Pharmacy Consult (Consult Rx Perform Med Rec) 1 each MISCELLANE ONCE PRN PRN Reason: Consult order Sodium Chloride (0.9 % Sodium Chloride Flush 3 Ml Syringe) 3 ml IVFLUSH QSHIFT [facility] Last Admin: 12/21/22 14:02 Dose: 3 ml Documented By: MIHAI Spironolactone (Spironolactone 25 Mg Tablet) 12.5 mg PO DAILY [facility]; Protocol Tramadol HCl (Tramadol Hcl 50 Mg Tablet) 50 mg PO Q6H PRN PRN Reason: Pain, Moderate(Pain Scale 4-6) Last Admin: 12/21/22 05:31 Dose: 50 mg Documented By: LORRIE Labs 12/21/22 06:15 12/21/22 06:15 Labs: Laboratory Results - last 24 hr 12/20/22 12/20/22 12/20/22 17:05 17:05 17:05 MCV MCH MCHC RDW Plt Count MPV Immature Gran % (Auto) Neut % (Auto) Lymph % (Auto) Bryan % (Auto) Eos % (Auto) Baso % (Auto) Lymph # (Auto) Bryan # (Auto) Eos # (Auto) Baso # (Auto) Abs Immat Gran (auto) Absolute Neuts (auto) Absolute Nucleated RBC Nucleated RBC % (auto) Smear Tech's Comments PT 10.7 INR 0.9 D-Dimer High Sensitivty 386 VBG pH VBG pCO2 VBG pO2 VBG HCO3 VBG O2 Saturation VBG Base Excess Anion Gap 20 Estim Creat Clear Calc 26.9 Estimated GFR 36 Random Glucose 96 Lactic Acid Lactic Acid F/U @ 2Hr Calcium 10.6 H D Magnesium 2.1 Total Bilirubin 1.0 Direct Bilirubin 0.3 AST 32 H ALT 15 Alkaline Phosphatase 105 Troponin I High Sens 20.3 H B-Natriuretic Peptide Total Protein 9.7 H Albumin 4.6 Influenza Type A (PCR) Influenza Type B (PCR) RSV RNA Qual (PCR) SARS-CoV-2 RNA (RT-PCR) 12/20/22 12/20/22 12/20/22 17:05 17:05 19:31 MCV 90.0 MCH 30.5 MCHC 33.9 RDW 12.9 Plt Count 283 MPV 9.9 Immature Gran % (Auto) 0.4 Neut % (Auto) 70.2 Lymph % (Auto) 20.0 Bryan % (Auto) 6.4 Eos % (Auto) 2.3 Baso % (Auto) 0.7 Lymph # (Auto) 2.2 Bryan # (Auto) 0.7 Eos # (Auto) 0.3 Baso # (Auto) 0.1 Abs Immat Gran (auto) 0.04 H Absolute Neuts (auto) 7.6 Absolute Nucleated RBC 0.000 Nucleated RBC % (auto) 0.0 Smear Tech's Comments PT INR D-Dimer High Sensitivty VBG pH VBG pCO2 VBG pO2 VBG HCO3 VBG O2 Saturation VBG Base Excess Anion Gap Estim Creat Clear Calc Estimated GFR Random Glucose Lactic Acid 3.0 H* Lactic Acid F/U @ 2Hr Calcium Magnesium Total Bilirubin Direct Bilirubin AST ALT Alkaline Phosphatase Troponin I High Sens B-Natriuretic Peptide 64 Total Protein Albumin Influenza Type A (PCR) Influenza Type B (PCR) RSV RNA Qual (PCR) SARS-CoV-2 RNA (RT-PCR) 12/20/22 12/20/22 12/20/22 19:31 19:31 20:17 MCV MCH MCHC RDW Plt Count MPV Immature Gran % (Auto) Neut % (Auto) Lymph % (Auto) Bryan % (Auto) Eos % (Auto) Baso % (Auto) Lymph # (Auto) Bryan # (Auto) Eos # (Auto) Baso # (Auto) Abs Immat Gran (auto) Absolute Neuts (auto) Absolute Nucleated RBC Nucleated RBC % (auto) Smear Tech's Comments PT INR D-Dimer High Sensitivty VBG pH 7.47 H VBG pCO2 52 VBG pO2 57 VBG HCO3 38 H VBG O2 Saturation 85.0 VBG Base Excess 12.9 Anion Gap Estim Creat Clear Calc Estimated GFR Random Glucose Lactic Acid Lactic Acid F/U @ 2Hr 1.5 Calcium Magnesium Total Bilirubin Direct Bilirubin AST ALT Alkaline Phosphatase Troponin I High Sens B-Natriuretic Peptide Total Protein Albumin Influenza Type A (PCR) NEGATIVE Influenza Type B (PCR) NEGATIVE RSV RNA Qual (PCR) NEGATIVE SARS-CoV-2 RNA (RT-PCR) NEGATIVE 12/20/22 12/21/22 12/21/22 22:45 06:15 06:15 MCV 92.2 MCH 30.5 MCHC 33.1 RDW 12.9 Plt Count 255 MPV 10.8 Immature Gran % (Auto) 0.6 H Neut % (Auto) 91.7 H Lymph % (Auto) 6.6 L Bryan % (Auto) 0.6 L Eos % (Auto) 0.1 Baso % (Auto) 0.4 Lymph # (Auto) 0.5 L Bryan # (Auto) 0.1 Eos # (Auto) 0.0 Baso # (Auto) 0.0 Abs Immat Gran (auto) 0.05 H Absolute Neuts (auto) 7.3 Absolute Nucleated RBC 0.000 Nucleated RBC % (auto) 0.0 Smear Tech's Comments VERIFIED PT INR D-Dimer High Sensitivty VBG pH VBG pCO2 VBG pO2 VBG HCO3 VBG O2 Saturation VBG Base Excess Anion Gap 16 Estim Creat Clear Calc 26.8 Estimated GFR 36 Random Glucose 162 H Lactic Acid Lactic Acid F/U @ 2Hr Calcium 9.2 D Magnesium 1.9 Total Bilirubin Direct Bilirubin AST ALT Alkaline Phosphatase Troponin I High Sens 23.8 H B-Natriuretic Peptide Total Protein Albumin Influenza Type A (PCR) Influenza Type B (PCR) RSV RNA Qual (PCR) SARS-CoV-2 RNA (RT-PCR) Assessment and Plan (1) Acute and chronic respiratory failure: Status: Acute (2) Acute on chronic right heart failure: Status: Acute Plan 87-year-old female with history of diastolic dysfunction, COPD, paroxysmal atrial fibrillation not on anticoagulation, hypothyroidism, hypertension, lymphedema, and obesity admitted for further management of acute on chronic hypoxemic respiratory failure secondary to CHF and COPD exacerbation. #Acute on chronic hypoxemic respiratory failure -likely secondary to mild right-sided heart failure, and mild COPD exacerbation, oxygen weaned of, currently stable on room air. -VBG mild hypercarbia, compensated -CXR negative for acute cardiopulmonary abnormality - will obtain home O2 evaluation # acute CHF exacerbation -BNP normal, but clinically appears in CHF exacerbation, with worsening leg edema, shortness of breath, likely amlodipine contributing to leg edema -echocardiogram obtained report pending -seen by Cardiology likely right-sided heart failure due to COPD continue gentle diuresis with IV Lasix 60 mg, home dose 60 mg by mouth, will decrease dose of amlodipine to 5 mg daily add Aldactone 12.5 mg daily as per Cardio recommendation - follow strict I&O,daily weights # acute COPD exacerbation - mild, no expiratory wheeze or rhonchi, CXR negative for pneumonia - wean IV steroids and updraft treatment , continue as needed albuterol and Singulair, DC IV azithromycin since will be placed on doxy for cellulitis you need # acute cellulitis left lower extremity - chronic lymphedema with localized mild bilateral erythema due to chronic venous stasis, pain out of proportion to redness and swelling - DC IV cefazolin , transition to by mouth doxycycline, x5 days, WBC normalized, blood cultures pending no evidence of sepsis #Recent recurrent syncope - tele monitor showed no arrhythmias, no neuro deficit - monitor on telemetry, follow echocardiogram and orthostatic BP PT eval #Acute hypokalemia -likely secondary to diuretic and albuterol usage,repleted in the ED, repeat potassium normalized #Paroxysmal atrial fibrillation- -EKG sinus tachycardia with PVC's -Not on anticoagulation # chronic lymphedema stable # hypothyroidism -continue levothyroxine # hypertension -continue Lasix, decrease dose of amlodipine 2 5 mg and follow BP closely # HLD -continue statin # obesity recommend weight reduction and low-calorie DVT [id number] adjusted DNR/DNI Patient requires inpatient stay for management of acute hypoxemic respiratory failure secondary to CHF and COPD exacerbation requiring supplemental O2, IV diuresis, IV steroids, cardiac monitoring given recent syncopal episodes Time Spent With Patient Time: Total time managing care of this patient today ____ minutes. Quality Stroke Does the patient have a stroke diagnosis?: No VTE Prior VTE?: No VTE Risk Level:: Medical - moderate - high VTE Device Contraindication: Treatment Not Indicated VTE Drug Contraindication: N/A - Med Ordered
[2022-12-21] MEDS: amLODIPine Besylate 5 MG TABLET PO (14:34)
[2022-12-21] MEDS: Doxycycline Monohydrate 100 MG CAPSULE PO (16:54)
--- NOTE | 2022-12-21 18:22 | PC.NURSE ---
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 Pt threatening during pt care, trying to hit and kick staff. Pt very demanding; pt requesting all her IV medication be mixed with NS. Pt educated thoroughly on her morning medications and what can and cannot be mixed with NS; education affective, pt agreeing to take them per MAR. Pt requesting for oxygen despite stable oxygenation on room air. Pt reports SOB but yelling at staff during pt care; oxygenation level stable during this time. This RN undressed pt dressing to right leg with Dr. Brown; no sign of skin tear or anything that would warrant a dressing around this leg, however pt requesting it; dressing reapplied per pt request.
[2022-12-21] MEDS: Magnesium Oxide 400 MG TABLET PO (20:55)
[2022-12-21] MEDS: Famotidine 20 MG TABLET PO (20:57)
[2022-12-21] MEDS: Enoxaparin Sodium 30 MG/0.3 ML SYRINGE SUBCUT (22:42)
[2022-12-22] VITALS (8 sets, daily range): BP systolic 136–172; BP diastolic 70–83; PULSE 77–100; RESP 15–20; TEMP 36.1–36.5; O2SAT 87–96
[2022-12-22] MEDS: Doxycycline Monohydrate 100 MG CAPSULE PO ×2 (05:43→16:40)
[2022-12-22] MEDS: Loratadine 10 MG TABLET PO (05:52)
[2022-12-22] MEDS: Levothyroxine Sodium 50 MCG TABLET PO (06:00)
[2022-12-22 06:57] LABS: Anion Gap 15 (12-20); Blood Urea Nitrogen 21 mg/dL (9-16); Calcium 9.7 mg/dL (8.4-10.2); Carbon Dioxide 31 mmol/L (22-29); Chloride 93 mmol/L (96-108); Creatinine Clr Calc Pharmacy 24.1; Estimated Glomerular Filt Rate 32; Glucose Random 116 mg/dL (60-115); Potassium 3.7 mmol/L (3.3-5.1); Sodium 135 mmol/L (135-145)
[2022-12-22] MEDS: Albuterol/Iprat 2.5/0.5MG 3 ML AMPUL.NEB INHALE ×2 (07:59→20:43)
[2022-12-22] MEDS: amLODIPine Besylate 5 MG TABLET PO (09:00)
[2022-12-22] MEDS: Famotidine 20 MG TABLET PO ×2 (09:00→20:45)
[2022-12-22] MEDS: Aspirin Enteric Coated 81 MG TABLET.DR PO (09:00)
[2022-12-22] MEDS: Montelukast Sodium 10 MG TABLET PO (09:00)
[2022-12-22] MEDS: 0.9 % Sodium Chloride Flush 3 ML SYRINGE IVFLUSH ×2 (09:03→16:41)
--- NOTE | 2022-12-22 15:20 | HO.PM.IMPN ---
Subjective Subjective Date of Service: 12/23/22 Interval History: complaining of feeling cold and jittery, feels cold is not making her feel this way, unable to explain what is she feeling, denies shortness of breath, no chest pain, no nausea, no vomiting refusing to eat breakfast since does not like the food, no acute events overnight. Review of Systems [employer] no headache, no dizziness CVS no chest pain, no palpitations frequent urination? likely due to diuretics, no burning rest all other system reviewed and negative Constitutional General? awake alert x3,resting comfortably in no acute distress.? anicteric sclera Neck supple no JVD. CVS? regular rate rhythm, no murmurs Respiratory lungs clear to auscultation, no respiratory distress, no wheeze, no rhonchi, no crackles Gastrointestinal abdomen soft, nontender, bowel sounds audible, no guarding , no rigidity. Extremities? bilateral edema, mild hyperemia lower legs no warmth, likely due to chronic venous stasis, no weeping no open wounds or lesions. Neuro nonfocal , moving all 4 extremity speech clear. psych appropriate affect skin no rash Physical Exam Vital Signs: Vital Signs: Last Vital Signs Temp 97.7 F 12/22/22 11:14 Pulse 84 12/22/22 11:14 Resp 20 12/22/22 11:14 BP 142/70 H 12/22/22 11:14 Pulse Ox 92 12/22/22 11:14 O2 Del Method Nasal Cannula 12/22/22 11:14 O2 Flow Rate 1 12/22/22 11:14 BMI result Body Mass Index 34.0 Objective Data Active Medications Acetaminophen (Acetaminophen 325 Mg Tablet) 650 mg PO Q6H PRN PRN Reason: Pain, Mild (Pain Scale 1-3) Last Admin: 12/21/22 14:01 Dose: 650 mg Documented By: MIHAI Albuterol Sulfate (Albuterol Sulfate (0.083%) 2.5 Mg/3 Ml Vial.Neb) 2.5 mg INHALE Q2H PRN PRN Reason: Shortness of Breath/Wheezing Albuterol/Ipratropium (Albuterol/Iprat 2.5/0.5mg 3 Ml Ampul.Neb) 3 ml INHALE RQ4H WHILE AWAKE [facility] Last Admin: 12/22/22 11:14 Dose: Not Given Documented By: JASVIR Non-Admin Reason: Patient Refused Amlodipine Besylate (Amlodipine Besylate 5 Mg Tablet) 5 mg PO DAILY [facility]; Protocol Last Admin: 12/22/22 09:00 Dose: 5 mg Documented By: ALEXANDER Aspirin (Aspirin Enteric Coated 81 Mg Tablet.Dr) 81 mg PO DAILY [facility] Last Admin: 12/22/22 09:00 Dose: 81 mg Documented By: ALEXANDER Docusate Sodium (Docusate Sodium 100 Mg Capsule) 100 mg PO DAILY PRN PRN Reason: Constipation Last Admin: 12/20/22 23:07 Dose: 100 mg Documented By: ROBERTO Doxycycline Monohydrate (Doxycycline Monohydrate 100 Mg Capsule) 100 mg PO Q12H [facility] Last Admin: 12/22/22 05:43 Dose: 100 mg Documented By: ALEXANDER Enoxaparin Sodium (Enoxaparin Sodium 30 Mg/0.3 Ml Syringe) 30 mg SUBCUT Q24H [facility] Last Admin: 12/21/22 22:42 Dose: 30 mg Documented By: ADRIENNE Famotidine (Famotidine 20 Mg Tablet) 20 mg PO BID [facility] Last Admin: 12/22/22 09:00 Dose: 20 mg Documented By: ALEXANDER Gabapentin (Gabapentin 300 Mg Capsule) 300 mg PO BID PRN PRN Reason: Pain, Moderate(Pain Scale 4-6) Levothyroxine Sodium (Levothyroxine Sodium 50 Mcg Tablet) 50 mcg PO SUTUTHSA@0630 [facility] Last Admin: 12/22/22 06:00 Dose: 50 mcg Documented By: ALEXANDER Levothyroxine Sodium (Levothyroxine Sodium 75 Mcg Tablet) 75 mcg PO MOWEFR@0630 [facility] Loratadine (Loratadine 10 Mg Tablet) 10 mg PO DAILY PRN PRN Reason: Allergic Symptoms Last Admin: 12/22/22 05:52 Dose: 10 mg Documented By: ALEXANDER Magnesium Oxide (Magnesium Oxide 400 Mg Tablet) 400 mg PO BEDTIME [facility] Last Admin: 12/21/22 20:55 Dose: 400 mg Documented By: ADRIENNE Montelukast Sodium (Montelukast Sodium 10 Mg Tablet) 10 mg PO DAILY [facility] Last Admin: 12/22/22 09:00 Dose: 10 mg Documented By: HO.DOBROB Multivitamins/Vitamin C (Multivitamin Tablet) 1 tab PO DAILY [facility] Last Admin: 12/22/22 09:02 Dose: Not Given Documented By: ALEXANDER Non-Admin Reason: Patient Refused Ondansetron HCl (Ondansetron Hcl 4 Mg/2 Ml Vial) 4 mg IVPUSH Q8H PRN PRN Reason: Nausea and Vomiting Last Admin: 12/20/22 23:08 Dose: 4 mg Documented By: ROBERTO Pharmacy Consult (Consult Rx Perform Med Rec) 1 each MISCELLANE ONCE PRN PRN Reason: Consult order Sodium Chloride (0.9 % Sodium Chloride Flush 3 Ml Syringe) 3 ml IVFLUSH QSHIFT [facility] Last Admin: 12/22/22 09:03 Dose: 3 ml Documented By: ALEXANDER Tramadol HCl (Tramadol Hcl 50 Mg Tablet) 50 mg PO Q6H PRN PRN Reason: Pain, Moderate(Pain Scale 4-6) Last Admin: 12/21/22 22:41 Dose: 50 mg Documented By: ADRIENNE Trolamine Salicylate (Trolamine Salicylate 10 % Cream 85 Gm Tube) 1 appl TOPICAL BID PRN; Protocol PRN Reason: Leg Cramp Labs 12/21/22 06:15 12/22/22 06:21 Labs: Laboratory Results - last 24 hr 12/22/22 06:21 Anion Gap 15 Estim Creat Clear Calc 24.1 Estimated GFR 32 Random Glucose 116 H Calcium 9.7 Microbiology Microbiology Results: Microbiology 12/20/22 19:31 Blood Culture - Preliminary Blood - Venous No growth after 24 hours. 12/20/22 17:05 Blood Culture - Preliminary Blood - Venous No growth after 24 hours. Assessment and Plan (1) Acute and chronic respiratory failure: Status: Acute (2) Acute on chronic right heart failure: Status: Acute Plan 87-year-old female with history of diastolic dysfunction, COPD, paroxysmal atrial fibrillation not on anticoagulation, hypothyroidism, hypertension, lymphedema, and obesity admitted for further management of acute on chronic hypoxemic respiratory failure secondary to CHF and COPD exacerbation. #Acute on chronic hypoxemic respiratory failure -likely secondary to mild right-sided heart failure, and mild COPD exacerbation, -VBG mild hypercarbia, compensated -CXR negative for acute cardiopulmonary abnormality - home O2 eval obtain patient qualifies with 2 L of oxygen at rest and 3 L with ambulation # acute CHF exacerbation due to right-sided heart failure -BNP normal, worsening leg edema, likely related to amlodipine and venous stasis -echocardiogram showed normal EF and impaired relaxation no significant valvular abnormality, mild decrease in right ventricular systolic function - since noted to have worsening creatinine and bicarb will DC IV Lasix follow clinical course follow BMP # acute COPD exacerbation - mild, no expiratory wheeze or rhonchi, CXR negative for pneumonia - DC steroids and minimize updraft treatment, continue as needed albuterol and Singulair, on doxy day 2 # acute cellulitis left lower extremity - chronic lymphedema with localized mild bilateral erythema due to chronic venous stasis, pain out of proportion to redness and swelling - on po doxycycline, x5 days, WBC normalized, blood cultures neg. no evidence of sepsis #Recent recurrent syncope - tele monitor showed no arrhythmias, no neuro deficit - monitor on telemetry, follow echocardiogram and orthostatic BP PT recommend short-term rehab #Acute hypokalemia -likely secondary to diuretic and albuterol usage,repleted in the ED, repeat potassium normalized #Paroxysmal atrial fibrillation- -EKG sinus tachycardia with PVC's -Not on anticoagulation # chronic lymphedema stable, recommend leg elevation, Arpan wrap # hypothyroidism -continue levothyroxine # hypertension -continue Lasix, decrease dose of amlodipine to 5 mg , few high blood pressure readings likely due to anxiety follow BP closely remain elevated will add beta-mahamed # HLD -continue statin #obesity recommend weight reduction and low-calorie DVT [id number] adjusted DNR/DNI Patient requires inpatient stay for management of acute hypoxemic respiratory failure secondary to CHF and COPD exacerbation requiring supplemental O2, Time Spent With Patient Time: Total time managing care of this patient today ____ minutes. Quality Stroke Does the patient have a stroke diagnosis?: No VTE Prior VTE?: No VTE Risk Level:: Medical - moderate - high VTE Device Contraindication: Treatment Not Indicated VTE Drug Contraindication: N/A - Med Ordered
[2022-12-22] MEDS: Magnesium Oxide 400 MG TABLET PO (20:45)
[2022-12-22] MEDS: Nystatin Powder 15 GM BOTTLE 1 APPL TOPICAL (20:47)
[2022-12-22] MEDS: traMADoL HCL 50 MG TABLET PO (22:19)
[2022-12-22] MEDS: Enoxaparin Sodium 30 MG/0.3 ML SYRINGE SUBCUT (22:20)
--- NOTE | 2022-12-22 22:59 | PC.NURSE ---
pt refused danish wrap to legs tonight stating legs are painful she needs brake
[2022-12-23] VITALS: BP 187/86; PULSE 98; RESP 18; TEMP 36.5; O2SAT 96
[2022-12-23] MEDS: Doxycycline Monohydrate 100 MG CAPSULE PO (03:16)
[2022-12-23 04:00] VITALS: BP 186/90; PULSE 94; RESP 16; TEMP 36.3; O2SAT 96
[2022-12-23 05:35] VITALS: BP 176/88
[2022-12-23 06:34] LABS: Anion Gap 12 (12-20); Blood Urea Nitrogen 20 mg/dL (9-16); Calcium 9.2 mg/dL (8.4-10.2); Carbon Dioxide 34 mmol/L (22-29); Chloride 96 mmol/L (96-108); Creatinine Clr Calc Pharmacy 32.6; Estimated Glomerular Filt Rate 45; Glucose Random 109 mg/dL (60-115); Potassium 3.3 mmol/L (3.3-5.1); Sodium 139 mmol/L (135-145)
[2022-12-23] MEDS: Levothyroxine Sodium 75 MCG TABLET PO (07:30)
[2022-12-23 08:00] VITALS: BP 180/70; PULSE 88; RESP 18; TEMP 36.1; O2SAT 90
[2022-12-23] MEDS: 0.9 % Sodium Chloride Flush 3 ML SYRINGE IVFLUSH (08:59)
[2022-12-23] MEDS: Famotidine 20 MG TABLET PO (08:59)
[2022-12-23] MEDS: Multivitamin TABLET 1 TAB PO (08:59)
[2022-12-23] MEDS: amLODIPine Besylate 5 MG TABLET PO (08:59)
[2022-12-23] MEDS: Aspirin Enteric Coated 81 MG TABLET.DR PO (08:59)
[2022-12-23] MEDS: Loratadine 10 MG TABLET PO (08:59)
[2022-12-23] MEDS: Montelukast Sodium 10 MG TABLET PO (08:59)
[2022-12-23] MEDS: Gabapentin 300 MG CAPSULE PO (08:59)
--- NOTE | 2022-12-23 10:44 | MHC.CM.PN ---
Addendum entered by Prachi Elam, RN 12/23/22 12:49: [facility] OFFERING BED TODAY, PT WILL D/C AT 2PM VIA [facility]. Original Note: PER HOSPITALIST PT MEDICALLY CLEARED FOR D/C TO STR, CM MET W/PT AND [facility] AT BEDSIDE AND PT REPORTS [facility] IS PREFERRED SNF, REFERRAL PLACED AND CM AWAITING RESPONSE, CM WILL CONT TO FOLLOW D/C NEEDS.
[2022-12-23] MEDS: Metoprolol Succinate ER 25 MG TAB.ER.24H PO (11:54)
[2022-12-23 11:59] VITALS: BP 160/80; PULSE 89; RESP 18; TEMP 36.1; O2SAT 90
--- NOTE | 2022-12-23 13:40 | P.DS_ITS ---
DS: Providers Provider Date of Service: 12/23/22 Date of admission: 12/20/22 22:21 Primary care physician: Jayjay Sood MD Consults: 12/20/22 22:21 Consult to Cardiology Routine Consulting Provider: [facility] [place] Cardiovascular Services Reason for consultation: syncope, new onset chf DS: Diagnosis Discharge Diagnosis (1) Acute and chronic respiratory failure: Status: Acute (2) Acute on chronic right heart failure: Status: Acute DS: Summary Hospital Course Hospital Course: Date of Service: 12/20/22 history of presenting illness: Chief Complaint: swollen/weeping legs, sob 87-year-old female with history of diastolic dysfunction, COPD not on home O2, hypothyroidism, paroxysmal atrial fibrillation not on anticoagulation, hypertension, lymphedema, and obesity presented to the ED with her granddaughter for evaluation of leg edema and shortness of breath.? She reports she has had lymphedema with chronic edema worsening over the last year but over the last few days has had significant weeping of serous drainage.? States the weeping is so significant will perform portals on the floor. The LLE is also exquisitely painful. She has been compliant with her Lasix 60 mg daily.? She is also reporting worsening shortness of breath with increased productive cough with brown sputum production.? Describes a dyspnea on exertion as well as orthopnea, sleeping with 4 pillows at night though this is not new.? On exam, she is barely able to speak in full sentences and is noted to have pursed lipped breathing at intervals.? She has been using her albuterol inhaler quite frequently per her granddaughter.? Incidentally, she also reports several syncopal episodes that have occurred.? Notes prodrome of generalized weakness and lightheadedness before syncopizing. She is uncertain of the duration of time she is unconscious periods states this will happen while standing without any exertion.? No syncopal episode prior to visit today. On arrival, patient is afebrile, with mild tachycardia of 102 and tachypnea of 22.? She was hypoxic to 88% placed on 2.5 L supplemental O2 with improvement to 94%.? There is a very mild leukocytosis of 10.9.? Renal function baseline.? Electrolytes normal with the exception of 8 hypokalemia of 2.8.? Initial lactic acid is 3.0, 2 are follow-up lactic acid 1.5.? Initial troponin 20.3.? BNP 64.? She is negative for influenza, RSV, COVID-19.? Venous duplex is negative for DVT bilaterally.? Chest x-ray is negative for any acute cardiopulmonary abnormality but does show chronic changes suggestive of emphysema and chronic appearing right-sided rib deformities.? Chest CT was ordered but patient refused due to significant claustrophobia and refused Ativan.? In the ED, was treated with 125 mg IV methylprednisolone, 60 mg IV Lasix, and 40 mEq? Potassium chloride. hospital course: 87-year-old female with history of diastolic dysfunction, COPD, paroxysmal atrial fibrillation not on anticoagulation, hypothyroidism, hypertension, lymphedema, and obesity admitted for further management of acute on chronic hypoxemic respiratory failure secondary to CHF and COPD exacerbation. #Acute on chronic hypoxemic respiratory failure, likely secondary to? mild right-sided heart failure, and mild COPD exacerbation,CXR negative for acute cardiopulmonary abnormality, patient treated with low-dose steroids and updraft treatment as well as gentle IV diuresis with Lasix patient responded well to above treatment, at present denies shortness of breath therefore does not need to further steroids, in regard to CHF patient appears euvolemic therefore can resume home dose of Lasix, recommend to keep legs elevated and take low-salt diet question leg edema also contributed by high dose of amlodipine therefore dose of amlodipine reduced to 5 mg, home O2 eval obtained patient qualifies for 2 L of oxygen at rest and 3 L with ambulation,echocardiogram ? showed normal EF and impaired relaxation no significant valvular abnormality, mild decrease in right ventricular systolic function recommend to continue home inhalers. # acute cellulitis left lower extremity, chronic lymphedema with? localized mild bilateral erythema due to chronic venous stasis,had pain out of proportion to redness and swelling, WBC normalized, blood cultures neg. no evidence of sepsis, recommended take 2 more days of by mouth doxycycline to finish a total 5 day course of antibiotics. #Recent recurrent syncope tele monitor showed no arrhythmias,? no neuro deficit, Echo as above #Acute hypokalemia -likely secondary to diuretic repleted , repeat? potassium normalized #Paroxysmal atrial fibrillation--EKG sinus tachycardia with PVC's,Not on anticoagulation # chronic lymphedema stable, recommend leg elevation, Arpan wrap # hypothyroidism -continue levothyroxine # hypertension -continue Lasix,? decrease dose of amlodipine to 5 mg , few high blood pressure readings , is started on metoprolol 25 mg daily recommend to increase dose of metoprolol XL to 50 mg daily BP remains elevated # HLD -continue statin #obesity recommend weight reduction and low-calorie Time Spent with Patient Time attestation: Total time managing care of this patient today ____ minutes. Discharge coordination time: Greater than 30 minutes Quality: Safe Use of Opioids Does Pt have an Active Cancer Diagnosis on the Problem List?: No Quality: Stroke Does the patient have a stroke diagnosis?: No Physical Exam Vital Signs: Vital Signs: Last Vital Signs Temp 96.9 F 12/23/22 11:59 Pulse 89 12/23/22 11:59 Resp 18 12/23/22 11:59 BP 160/80 H 12/23/22 11:59 Pulse Ox 90 L 12/23/22 11:59 O2 Del Method Nasal Cannula 12/23/22 11:59 O2 Flow Rate 3 12/23/22 11:59 BMI result Body Mass Index 34.0 Const: Other: General? awake manav rt x3,resting comf ortably in no acut e distress.? anict sylvia sclera Neck s upple no JVD. CVS? regular rate rhyt hm, no murmurs Res piratory lungs britt ar to auscultation , no respiratory d istress, no wheeze , no rhonchi, no c rackles. Gastroint estinal abdomen so ft, non tender, gabrielle wel sounds audible , no guarding , no rigidity. Extremi ties? bilateral ed kee, mild hyperemi a lower legs no wa rmth, likely due t o chronic venous s tasis, no weeping no open wounds or lesions. Neuro non focal , moving al l 4 extremity spee ch clear. psych ap propriate affect s kin no rash DS: Data Data Completed and Pending Labs on day of discharge: Laboratory Results - last 24 hr 12/23/22 06:02 Sodium 139 Potassium 3.3 Chloride 96 Carbon Dioxide 34 H Anion Gap 12 BUN 20 H Creatinine 1.15 Estim Creat Clear Calc 32.6 Estimated GFR 45 Random Glucose 109 Calcium 9.2 Preliminary micro results at discharge 12/20/22 19:31 Blood Culture - Preliminary Blood - Venous No growth after 48 hours. 12/20/22 17:05 Blood Culture - Preliminary Blood - Venous No growth after 48 hours. Discharge Plan Discharge Anticipated Discharge Date/Time: 12/23/22 10:50 Patient Disposition: Xfer SNF Discharge Diagnosis: Acute on chronic respiratory failure acute left lower extremity cellulitis mild COPD exacerbation Referrals: Luis Levin [Outside] - 1 Day (SHORT TERM REHAB) Jayjay Sood MD [Primary Care Provider] - 1 Week Discharge Medications: New doxycycline monohydrate 100 mg Capsule 100 mg PO Q12H Qty: 4 0RF metoprolol succinate 25 mg Tablet Extended Release 24 Hr 25 mg PO DAILY Qty: 30 0RF Protocol: Hold for SBP/HR < HOLD for SBP < : 90 HOLD for HR < : 60 Continued loratadine 10 mg Tablet 10 mg PO DAILY PRN (Reason: Allergic Symptoms) levothyroxine 50 mcg tablet 75 mcg PO MOWEFR@0630 famotidine 20 mg tablet 20 mg PO BID montelukast 10 mg tablet 10 mg PO DAILY multivitamin Tablet 1 tab PO DAILY aspirin 81 mg Tablet,Delayed Release (Dr/Ec) 81 mg PO DAILY simvastatin 10 mg tablet 10 mg PO DAILY levothyroxine 50 mcg tablet 50 mcg PO SUTUTHSA@0630 ipratropium bromide 17 mcg/actuation HFA aerosol inhaler 2 puff inhalation QID PRN (Reason: Shortness Of Breath) gabapentin 300 mg capsule 300 mg PO BID PRN (Reason: Pain) magnesium oxide 400 mg (241.3 mg magnesium) tablet 400 mg PO BEDTIME furosemide 40 mg tablet 60 mg PO DAILY Changed amlodipine 5 mg tablet 5 mg PO DAILY Qty: 30 0RF Discharge Orders: Discharge Order (Routine); Ordered 12/23/22 Ordered By: Beto Brown Diet: Low salt diet Activity on Discharge: As tolerated Stand Alone Forms: Patient Portal Discharge page Care Plan Goals: you are qualified for 2 L of oxygen at rest and 3 L with ambulation take doxycycline 100 mg twice daily for 2 more days dose of amlodipine reduced to 5 mg due to leg edema, is started on metoprolol 25 mg daily for elevated blood pressure recommend to monitor blood pressure keep legs elevated Health Concerns: being discharged to rehab due to gross deconditioning, impaired gait pattern and transferred ability Plan of Treatment: follow up with pcp. call for appointment Assessment: as above
== END 2022-12-23 15:32 | disposition skilled nursing facility (03) | DRG 190 ==
LOC: HO.ED 21:54 → HO.EDOVER 22:56 → HO.IMC 12-21 03:21
PROVIDERS: Physician Assistant; Admitting Provider Physician Assistant; Emergency Provider Emergency Medicine; PCP Internal Medicine; Visit Provider Hospitalist
DX: J44.1 Chronic obstructive pulmonary disease with (acute) exacerbation (principal); J96.21 Acute and chronic respiratory failure with hypoxia; L03.116 Cellulitis of left lower limb; I11.0 Hypertensive heart disease with heart failure; E87.6 Hypokalemia; I48.0 Paroxysmal atrial fibrillation; I89.0 Lymphedema, not elsewhere classified; Z66 Do not resuscitate; E78.5 Hyperlipidemia, unspecified; E03.9 Hypothyroidism, unspecified; T50.2X5A Adverse effect of carbonic-anhydrase inhibitors, benzothiadiazides and other diuretics, initial encounter; T48.6X5A Adverse effect of antiasthmatics, initial encounter; E66.9 Obesity, unspecified; I50.813 Acute on chronic right heart failure; Z20.822 Contact with and (suspected) exposure to COVID-19; Z71.3 Dietary counseling and surveillance; Z87.891 Personal history of nicotine dependence; Z68.34 Body mass index [BMI] 34.0-34.9, adult; Z91.041 Radiographic dye allergy status; Z79.82 Long term (current) use of aspirin; Z79.890 Hormone replacement therapy; Z79.899 Other long term (current) drug therapy
CPT/HCPCS: 0241U; 36415; 71045; 80048; 80076; 82803; 83605; 83735; 83880; 84484; 85025; 85379; 85610; 87040; 93005; 93306; 93970; 94640; 97162; 99285; J0456; J0690; J1650; J1940; J2405; J2920; J2930; Q9957

== ENCOUNTER 2022-12-27 01:09 | Emergency (ER) | payer MEDICARE, MEDICAID, SELFPAY ==
[2022-12-27 01:20] VITALS: BP 143/76; BP 180/78; PULSE 81; PULSE 88; RESP 18; TEMP 37; O2SAT 96; O2SAT 98; BMI 28.3
--- NOTE | 2022-12-27 01:28 | ECG_ITS ---
Test Reason : CP Blood Pressure : / mmHG Vent. Rate : 077 BPM Atrial Rate : 077 BPM P-R Int : 184 ms QRS Dur : 080 ms QT Int : 404 ms P-R-T Axes : 053 004 059 degrees QTc Int : 457 ms Normal sinus rhythm Cannot rule out Inferior infarct , age undetermined Cannot rule out Anterior infarct (cited on or before 20-DEC-2022) Abnormal ECG When compared with ECG of 20-DEC-2022 17:06, Questionable change in initial forces of Septal leads Referred By: Generic ED Physician Electronically Signed By:BRISA LUU
--- OUTSIDE RECORDS SUMMARY | 2022-12-27 01:38 | XMS_ITS | Patient Health Record ---
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, with unspecified presence of clinical manifestation I70.203 confirmed [id number] ALLERGIES Allergen (clinical drug ingredient) Drug/Non Drug Allergy documented on EMR Reaction Allergy Type Onset Date Status Adhesive Rash Drug Allergy Active Iodine Rash Drug Allergy Active Latex Latex Rash Drug Allergy Active ENCOUNTERS from 1936 to 2022-12-27 Encounter Location Date Provider Diagnosis [address] [address] November, Jorge Luis Brooks [address] [address] November, Jorge Luis Todd [address] [address] Aug, Jorge Luis Brooks Atherosclerosis of [place] artery of both lower extremities, with unspecified presence of clinical manifestation I70.203 ; Tinea unguium B35.1 ; Pain in right toe(s) M79.674 ; Pain in left toe(s) M79.675 ; Other hammer toe(s) (acquired), right foot M20.41 and Other hammer toe(s) (acquired), left foot M20.42 SOCIAL HISTORY Tobacco Use: Social History Observation Description Date Details (start date - stop date) Former Smoker Sex Assigned At : Social History Observation Description Sex Assigned At Unknown Alcohol Screen Question Answer Notes Did you have a drink containing alcohol in the p ast year? No Points 0 Interpretation Negative Tobacco Use/Smoking Question Answer Notes Additional Findings: Tobacco Non-User Current no n-smoker Are you a: former smoker Tobacco use other than smoking: Question Answer Notes Are you an other tobacco user? No REASON FOR REFERRAL No Information VITAL SIGNS from 1936 to 2022-12-27 Height 5 ft 5 in in November, Weight 198 lbs Aug, BMI 32.95 kg/m2 Aug, Temperature 98.4 degrees Fahrenheit Aug, MEDICATIONS Medication SIG (Take, Route, Frequency, Duration) Notes Start Date End Date Status Centrum Women - as directed Orally Active Gabapentin 300 MG 1 capsule Orally Twi ce Daily Active Levothyroxine Sodium 50 MCG 1 tablet in the morning on an empty stomach Orally Once a day for 30 day(s) Active Potassium Gluconate Active Montelukast Sodium 10 MG 1 tablet Orally Once a day for 30 day(s) Active Aspir-81 Active Furosemide 20 MG 1 tablet Orally Twic e Daily Active Famotidine 20 MG 1 tablet at bedtime as needed Orally Twice a day Active Magnesium 400 MG as directed Orally Active amLODIPine Besylate 5 MG 1 tablet Orally Twice Daily Active Vitamin E 400 UNIT 1 capsule Orally Onc e a day for 30 day(s) Active Vitamin D 25 MCG (1000 UT) 1 tablet Oral ly 4 times daily Active Simvastatin 10 MG 1 tablet in the even ing Orally Once a day for 30 day(s) Active Lisinopril 10 MG 1 tablet Orally Once a day for 30 day(s) Active Oscal 500/200 D-3 500-200 MG-UNIT 1 tablet with meals Orally Twice a day for 30 day(s) Active REASON FOR VISIT No Information MEDICAL (GENERAL) HISTORY Type Description Date Medical History Arthritis Medical History asthma Medical History Back,Hip,and Knee pain Medical History Cancer Medical History Headaches/Migraines Medical History High blood pressure Medical History Lung disease Medical History Numbness Medical History Poor circulation Medical History Measles Medical History Mumps Medical History Chicken pox Surgical History tonsillectomy and adenoidectomy Surgical History appendectomy Surgical History hysterectomy MENTAL STATUS No Information ASSESSMENTS Encounter Date Diagnosis Assessment Notes Treatment Notes Treatment Clinical Notes Aug, Atherosclerosis of [place] artery of both lower extremities, with unspecified presence of clinical manifestation (ICD-10 - I70.203) Aug, Tinea unguium (ICD-1 0 - B35.1) Aug, Pain in right toe(s) (ICD-10 - M79.674) Aug, Pain in left toe(s) (ICD-10 - M79.675) Aug, Other hammer toe(s) (acquired), right foot (ICD-10 - M20.41) Aug, Other hammer toe(s) (acquired), left foot (ICD-10 - M20.42) PLAN OF TREATMENT Pending Tests Test Name Order Date [id number] NAIL, 6 OR MORE 2020-08-28 [id number] SKIN LESIONS, 2 TO 4 Insurance Providers Payer Name Payer Address Payer Phone Insured Name Patient Relationship to Insured Coverage Start Date Coverage End Date Subscriber Number Group Number [employer] [address] [facility] [id number] [place] Self - patient is the insured [id number]
--- NOTE | 2022-12-27 01:50 | ED_ITS ---
HPI - Chest Pain General Chief Complaint: Chest Pain Stated Complaint: chest pain Time Seen by Provider: 12/27/22 01:37 Source: EMS and RN notes reviewed Mode of arrival: EMS History of Present Illness HPI narrative: Patient is 7 years old from prison with history of right-sided heart failure, paroxysmal AFib not on PABLO therapy, hypothyroidism, COPD comes in for chest pain happened just prior to arrival of pain is sharp constant nonradiating patient was sitting in a chair watching TV blood pressure was slightly elevated when EMS arrived 180/78 was given 1 nitroglycerin sublingual and 324 mg aspirin and chest pain improved chest pain increases on palpation taking deep breath patient has similar pain 3 years ago Related Data Home Medications Medication Instructions Recorded Confirmed furosemide 40 mg tablet 60 mg PO DAILY 07/13/20 12/21/22 gabapentin 300 mg capsule 300 mg PO BID PRN Pain 07/13/20 12/21/22 ipratropium bromide 17 2 puff inhalation QID PRN 07/13/20 12/21/22 mcg/actuation HFA aerosol inhaler Shortness Of Breath levothyroxine 50 mcg tablet 50 mcg PO SUTUTHSA@0630 07/13/20 12/21/22 magnesium oxide 400 mg (241.3 mg 400 mg PO BEDTIME 07/13/20 12/21/22 magnesium) tablet simvastatin 10 mg tablet 10 mg PO DAILY 07/13/20 12/21/22 levothyroxine 50 mcg tablet 75 mcg PO MOWEFR@0630 05/07/21 12/21/22 loratadine 10 mg tablet 10 mg PO DAILY PRN Allergic 05/07/21 12/21/22 Symptoms aspirin 81 mg tablet,delayed 81 mg PO DAILY 12/21/22 12/21/22 release famotidine 20 mg tablet 20 mg PO BID 12/21/22 12/21/22 montelukast 10 mg tablet 10 mg PO DAILY 12/21/22 12/21/22 multivitamin 1 tab PO DAILY 12/21/22 12/21/22 Previous Rx's Medication Instructions Recorded amlodipine 5 mg tablet 5 mg PO DAILY #30 tabs 12/23/22 doxycycline monohydrate 100 mg 100 mg PO Q12H #4 caps 12/23/22 capsule metoprolol succinate 25 mg 25 mg PO DAILY #30 tabs 12/23/22 tablet,extended release 24 hr Allergies Allergy/AdvReac Type Severity Reaction Status Date / Time adhesive tape [Adhesive Tape] Allergy Unknown RASH Verified 12/20/22 16:50 codeine [Codeine] Allergy Unknown SWELLING Verified 12/20/22 16:50 Iodinated Contrast Media Allergy Unknown UNKNOWN Verified 12/20/22 16:50 [IV Dye, Iodine Containing] iodine [Iodine] Allergy Unknown UNKNOWN Verified 12/20/22 16:50 oxycodone [Percocet] Allergy Unknown unknown Verified 12/20/22 16:50 papaya [Papaya] Allergy Unknown HIVES Verified 12/20/22 16:50 pineapple [Pineapple] Allergy Unknown HIVES Verified 12/20/22 16:50 strawberry [[place]] Allergy Unknown HIVES Verified 12/20/22 16:50 Codeine Phosphate Allergy Unknown unknown Uncoded 11/30/20 15:34 Novocain Allergy Unknown unknown Uncoded 11/30/20 15:34 From Vicodin AdvReac Unknown NAUSEA & Uncoded 11/30/20 15:34 VOMITING Review of Systems Review of Systems: Yes Unobtainable due to mental status PMFSH Past Medical History Medical History COPD (chronic obstructive pulmonary disease) HTN (hypertension) Hyperlipidemia Hypothyroidism PAF (paroxysmal atrial fibrillation) Family History Family History Father History of heart disease Mother History of heart disease Social History Social History Household Members: None Housing: House Alcohol intake: never Patient Tobacco Use Status: Former Tobacco user Smoked in Last 30 Days: No Use of substances other than those prescribed or required for medical reasons: No Any prior treatment program specific to substance use: No Advance Directives: No Advance Directives Information Provided: Yes service: No Current occupational status: retired Physical Exam Vital Signs: Vital Signs: Last Vital Signs Temp 98.6 F 12/27/22 01:20 Pulse 70 12/27/22 02:22 Resp 14 12/27/22 02:22 BP 149/77 H 12/27/22 02:22 Pulse Ox 95 12/27/22 02:22 O2 Del Method Nasal Cannula 12/27/22 02:22 O2 Flow Rate 2 12/27/22 02:22 Oxygen Flow Rate 2 12/27/22 01:20 BMI result Body Mass Index 28.3 Appearance: Alert. Oriented X3. No acute distress. Eyes: PERRLA, ENT: Pharynx normal. Oral Mucosa moist Neck: Normal inspection. Neck supple. CVS: Normal heart rate and rhythm. Pulses normal. Respiratory: No respiratory distress. Equal air entry bilateral, no wheezing/rales/rhonchi left-sided chest wall tenderness Abdomen: Soft and nontender. Bowel sounds are present, no mass palpable, no CVA tenderness Skin: Skin warm and dry. Normal skin color. Normal skin turgor. Extremities: trace lower extremity edema. No calf tenderness Neuro: Oriented X 3. No motor deficit. No sensory deficit.No cerebellar signs , cranial nerves II-XII intact Medications Administered Discontinued Medications Generic Name Dose Route Start Last Admin Trade Name Freq PRN Reason Stop Dose Admin Ketorolac Tromethamine 15 mg 12/27/22 04:39 12/27/22 04:44 Ketorolac Tromethamine 15 Mg/Ml Vial IVPUSH 12/27/22 04:40 15 mg ONCE ONE Administration Medical Decision Making Medical Decision Making [facility] Narrative: Patient with atypical chest pain and tender to touch left chest wall 2 sets of cardiac enzymes are negative for delta change in troponin I patient is comfortable discharge patient [facility] no acute ischemic changes in the EKG vitals are stable Differential Diagnosis ACS/pneumonia/pneumothorax/at fibrillation Lab Data [facility] Lab Attestation statement: I reviewed the patient's lab results. 12/27/22 02:07 12/27/22 02:07 Labs: Lab Results 12/27/22 12/27/22 12/27/22 Range/Units 02:07 02:07 02:07 WBC 8.3 (4.8-10.8) X10*3/uL RBC 4.13 L (4.20-5.50) X10*6/uL Hgb 12.5 (12.0-16.0) g/dl Hct 37.6 (37.0-47.0) % MCV 91.0 (80.0-98.0) fL MCH 30.3 (27.0-33.0) pg MCHC 33.2 (31.0-35.0) g/dl RDW 12.5 (11.0-16.0) % Plt Count 241 (160-400) X10*3/uL MPV 10.5 (9.4-12.3) fL Immature Gran % (Auto) 0.7 H (0.0-0.4) % Neut % (Auto) 65.8 (45-73) % Lymph % (Auto) 18.6 L (20-40) % Nolan % (Auto) 9.8 (2-11) % Eos % (Auto) 4.7 H (0-4) % Baso % (Auto) 0.4 (0-2) % Lymph # (Auto) 1.5 (1.2-4.9) X10*3/uL Nolan # (Auto) 0.8 (0.1-1.2) X10*3/uL Eos # (Auto) 0.4 (0.0-0.4) X10*3/uL Baso # (Auto) 0.0 (0.0-0.2) X10*3/uL Abs Immat Gran (auto) 0.06 H (0.00-0.03) X10*3/uL Absolute Neuts (auto) 5.4 (2.0-8.3) x10*3/uL Absolute Nucleated RBC 0.000 (0.0-0.012) X10*3/uL Nucleated RBC % (auto) 0.0 (0.0-0.2) /100WBC Sodium 137 (135-145) mmol/L Potassium 3.2 L (3.3-5.1) mmol/L Chloride 94 L (96-108) mmol/L Carbon Dioxide 30 H (22-29) mmol/L Anion Gap 16 (12-20) BUN 27 H (9-16) mg/dL Creatinine 1.43 H (0.5-1.4) mg/dL Estim Creat Clear Calc 26.9 Estimated GFR 35 Random Glucose 157 H (60-115) mg/dL Calcium 9.3 (8.4-10.2) mg/dL Troponin I High Sens 12.4 (<3.5-17.0) ng/L 12/27/22 Range/Units 04:02 WBC (4.8-10.8) X10*3/uL RBC (4.20-5.50) X10*6/uL Hgb (12.0-16.0) g/dl Hct (37.0-47.0) % MCV (80.0-98.0) fL MCH (27.0-33.0) pg MCHC (31.0-35.0) g/dl RDW (11.0-16.0) % Plt Count (160-400) X10*3/uL MPV (9.4-12.3) fL Immature Gran % (Auto) (0.0-0.4) % Neut % (Auto) (45-73) % Lymph % (Auto) (20-40) % Nolan % (Auto) (2-11) % Eos % (Auto) (0-4) % Baso % (Auto) (0-2) % Lymph # (Auto) (1.2-4.9) X10*3/uL Nolan # (Auto) (0.1-1.2) X10*3/uL Eos # (Auto) (0.0-0.4) X10*3/uL Baso # (Auto) (0.0-0.2) X10*3/uL Abs Immat Gran (auto) (0.00-0.03) X10*3/uL Absolute Neuts (auto) (2.0-8.3) x10*3/uL Absolute Nucleated RBC (0.0-0.012) X10*3/uL Nucleated RBC % (auto) (0.0-0.2) /100WBC Sodium (135-145) mmol/L Potassium (3.3-5.1) mmol/L Chloride (96-108) mmol/L Carbon Dioxide (22-29) mmol/L Anion Gap (12-20) BUN (9-16) mg/dL Creatinine (0.5-1.4) mg/dL Estim Creat Clear Calc Estimated GFR Random Glucose (60-115) mg/dL Calcium (8.4-10.2) mg/dL Troponin I High Sens 11.8 (<3.5-17.0) ng/L Independent Interpretation I performed an independent interpretation of an: EKG Interpretation: Normal sinus rhythm heart rate 77 beats per minute poor progression of R-waves no acute issues segment changes no acute ischemia Discharge Plan Discharge Clinical Impression: Chest pain Patient Disposition: Xfer LTC Transfer Details: Chest pain is atypical pain likely musculoskeletal 2 sets of cardiac enzymes negative no acute ischemic changes in the EKG patient need to follow up with her PCP for further management Instructions: Chest Pain (ED) Additional Instructions: Continue medications and follow with PCP Prescriptions: No Action loratadine 10 mg Tablet 10 mg PO DAILY PRN (Reason: Allergic Symptoms) levothyroxine 50 mcg tablet 75 mcg PO MOWEFR@0630 famotidine 20 mg tablet 20 mg PO BID montelukast 10 mg tablet 10 mg PO DAILY multivitamin Tablet 1 tab PO DAILY aspirin 81 mg Tablet,Delayed Release (Dr/Ec) 81 mg PO DAILY doxycycline monohydrate 100 mg Capsule 100 mg PO Q12H Qty: 4 0RF amlodipine 5 mg tablet 5 mg PO DAILY Qty: 30 0RF metoprolol succinate 25 mg Tablet Extended Release 24 Hr 25 mg PO DAILY Qty: 30 0RF Protocol: Hold for SBP/HR < HOLD for SBP < : 90 HOLD for HR < : 60 simvastatin 10 mg tablet 10 mg PO DAILY levothyroxine 50 mcg tablet 50 mcg PO SUTUTHSA@0630 ipratropium bromide 17 mcg/actuation HFA aerosol inhaler 2 puff inhalation QID PRN (Reason: Shortness Of Breath) gabapentin 300 mg capsule 300 mg PO BID PRN (Reason: Pain) magnesium oxide 400 mg (241.3 mg magnesium) tablet 400 mg PO BEDTIME furosemide 40 mg tablet 60 mg PO DAILY
[2022-12-27 02:00] VITALS: O2SAT 96
[2022-12-27 02:14] LABS: MANUAL DIFF FLAG NO
[2022-12-27 02:15] LABS: Basophils Percent Auto 0.4 % (0-2); Eosinophils Absolute Auto 0.4 X10*3/uL (0.0-0.4); Eosinophils Percent Auto 4.7 % (0-4); Hematocrit 37.6 % (37.0-47.0); Hemoglobin 12.5 g/dl (12.0-16.0); Imm Gran Abs Auto 0.06 X10*3/uL (0.00-0.03); Imm Gran Pct Auto 0.7 % (0.0-0.4); Lymphocytes Absolute Auto 1.5 X10*3/uL (1.2-4.9); Lymphocytes Percent Auto 18.6 % (20-40); Mean Corpuscular HGB Conc 33.2 g/dl (31.0-35.0); Mean Corpuscular Hemoglobin 30.3 pg (27.0-33.0); Mean Platelet Volume 10.5 fL (9.4-12.3); Monocytes Absolute Auto 0.8 X10*3/uL (0.1-1.2); Monocytes Percent Auto 9.8 % (2-11); Neutrophils Absolute Auto 5.4 x10*3/uL (2.0-8.3); Neutrophils Percent Auto 65.8 % (45-73); Platelet Count 241 X10*3/uL (160-400); Red Blood Count 4.13 X10*6/uL (4.20-5.50); Red Cell Distribution Width 12.5 % (11.0-16.0); White Blood Count 8.3 X10*3/uL (4.8-10.8)
[2022-12-27 02:22] VITALS: BP 149/77; PULSE 70; RESP 14; O2SAT 95
[2022-12-27 02:30] LABS: Anion Gap 16 (12-20); Blood Urea Nitrogen 27 mg/dL (9-16); Calcium 9.3 mg/dL (8.4-10.2); Carbon Dioxide 30 mmol/L (22-29); Chloride 94 mmol/L (96-108); Creatinine Clr Calc Pharmacy 26.9; Estimated Glomerular Filt Rate 35; Glucose Random 157 mg/dL (60-115); Potassium 3.2 mmol/L (3.3-5.1); Sodium 137 mmol/L (135-145)
[2022-12-27 02:38] LABS: Troponin-I High Sensitivity 12.4 ng/L (<3.5-17.0)
[2022-12-27 04:27] LABS: Troponin-I High Sensitivity 11.8 ng/L (<3.5-17.0)
[2022-12-27] MEDS: Ketorolac Tromethamine 15 MG/ML VIAL IVPUSH (04:44)
--- NOTE | 2022-12-27 05:15 | MHC.EDTECH ---
call out to linda at 0513 to book transport back to [facility] on [address], eta given was 0715
[2022-12-27 06:00] VITALS: BP 145/72; PULSE 77; RESP 18; TEMP 36.5; O2SAT 95
[2022-12-27] MEDS: Gabapentin 300 MG CAPSULE PO (06:34)
--- NOTE | 2022-12-27 07:18 | PC.NURSE ---
aox3 speaking in full clear sentences. denied any pain or complaints at this time. aware of plan of care for return to [facility]. denied having any questions.
== END 2022-12-27 07:36 ==
PROVIDERS: Emergency Provider Internal Medicine
DX: R07.89 Other chest pain (principal); I48.0 Paroxysmal atrial fibrillation; Z87.891 Personal history of nicotine dependence; Z79.899 Other long term (current) drug therapy
CPT/HCPCS: 36415; 80048; 84484; 85025; 93005; 96374; 99284; 99285; J1885

== ENCOUNTER 2023-01-15 17:45 | Emergency (ER) | payer MEDICARE, MEDICAID, SELFPAY ==
[2023-01-15 17:53] VITALS: BP 130/70; BP 173/66; PULSE 101; PULSE 90; RESP 22; TEMP 36.4; O2SAT 90; O2SAT 92; BMI 26.1
--- NOTE | 2023-01-15 18:13 | PC.NURSE ---
pt BIBA from home where she called 911 herself for ?SOB. pt difficulty with answering questions, spacey thought process. distracted. she has multiple complaints. SaO2 on EMS arrival was low 90s. pt was started on 4L NC. upon arrival to [facility] rm 8 pt sao2 92/93%. pt recently d/c home from rehab where she is supposed to be on home O2 (she thinks) but cant wear it because shes allergic to plastic . pt requested that her name band be cut off because its plastic and she is allergic to it. pt proceeded to hold it in her other hand. lung sounds clear, dim at the bases. pt in NAD.
--- NOTE | 2023-01-15 18:20 | ED.SOB ---
HPI - SOB/Dyspnea General Chief Complaint: Dyspnea Stated Complaint: DIFF BREATHING Time Seen by Provider: 01/15/23 18:05 Source: patient Mode of arrival: EMS Limitations: no limitations History of Present Illness HPI Narrative: Patient 88 years old with history of COPD atrial fibrillation with right heart failure, paroxysmal AFib on chronically oxygen dependent 2.5 L 30/01 just discharged from rehab 2 days ago unable to use oxygen because she thinks her nasal cannula is rubber and she is allergic to rubber patient is saturating 90-92% at room air on arrival improved to 96% on 4 L no cough no chest pain or palpitation Related Data Home Medications Medication Instructions Recorded Confirmed furosemide 40 mg tablet 60 mg PO DAILY 07/13/20 12/21/22 gabapentin 300 mg capsule 300 mg PO BID PRN Pain 07/13/20 12/21/22 ipratropium bromide 17 2 puff inhalation QID PRN 07/13/20 12/21/22 mcg/actuation HFA aerosol inhaler Shortness Of Breath levothyroxine 50 mcg tablet 50 mcg PO SUTUTHSA@0630 07/13/20 12/21/22 magnesium oxide 400 mg (241.3 mg 400 mg PO BEDTIME 07/13/20 12/21/22 magnesium) tablet simvastatin 10 mg tablet 10 mg PO DAILY 07/13/20 12/21/22 levothyroxine 50 mcg tablet 75 mcg PO MOWEFR@0630 05/07/21 12/21/22 loratadine 10 mg tablet 10 mg PO DAILY PRN Allergic 05/07/21 12/21/22 Symptoms aspirin 81 mg tablet,delayed 81 mg PO DAILY 12/21/22 12/21/22 release famotidine 20 mg tablet 20 mg PO BID 12/21/22 12/21/22 montelukast 10 mg tablet 10 mg PO DAILY 12/21/22 12/21/22 multivitamin 1 tab PO DAILY 12/21/22 12/21/22 Previous Rx's Medication Instructions Recorded amlodipine 5 mg tablet 5 mg PO DAILY #30 tabs 12/23/22 doxycycline monohydrate 100 mg 100 mg PO Q12H #4 caps 12/23/22 capsule metoprolol succinate 25 mg 25 mg PO DAILY #30 tabs 12/23/22 tablet,extended release 24 hr Allergies Allergy/AdvReac Type Severity Reaction Status Date / Time adhesive tape [Adhesive Tape] Allergy Unknown RASH Verified 12/20/22 16:50 codeine [Codeine] Allergy Unknown SWELLING Verified 12/20/22 16:50 Iodinated Contrast Media Allergy Unknown UNKNOWN Verified 12/20/22 16:50 [IV Dye, Iodine Containing] iodine [Iodine] Allergy Unknown UNKNOWN Verified 12/20/22 16:50 oxycodone [Percocet] Allergy Unknown unknown Verified 12/20/22 16:50 papaya [Papaya] Allergy Unknown HIVES Verified 12/20/22 16:50 pineapple [Pineapple] Allergy Unknown HIVES Verified 12/20/22 16:50 strawberry [[place]] Allergy Unknown HIVES Verified 12/20/22 16:50 Codeine Phosphate Allergy Unknown unknown Uncoded 11/30/20 15:34 Novocain Allergy Unknown unknown Uncoded 11/30/20 15:34 From Vicodin AdvReac Unknown NAUSEA & Uncoded 11/30/20 15:34 VOMITING Review of Systems Review of Systems: Yes all other systems are reviewed and are negative PMFSH Past Medical History Medical History COPD (chronic obstructive pulmonary disease) HTN (hypertension) Hyperlipidemia Hypothyroidism PAF (paroxysmal atrial fibrillation) Family History Family History Father History of heart disease Mother History of heart disease Social History Social History Household Members: None Housing: House Alcohol intake: never Patient Tobacco Use Status: Former Tobacco user Smoked in Last 30 Days: No Use of substances other than those prescribed or required for medical reasons: No Advance Directives: Yes Advance Directives on File: Yes Advance Directives Date on File: 05/10/21 service: No Current occupational status: retired Physical Exam Vital Signs: Vital Signs: Last Vital Signs Temp 98.4 F 01/15/23 19:13 Pulse 94 01/15/23 19:13 Resp 20 01/15/23 19:13 BP 141/73 H 01/15/23 19:13 Pulse Ox 96 01/15/23 19:13 O2 Del Method Room Air 01/15/23 19:13 BMI result Body Mass Index 26.1 Appearance: Alert. Oriented X3. No acute distress. Eyes: PERRLA, No Nystagmus ENT: Pharynx normal. Oral Mucosa moist Neck: Normal inspection. Neck supple. CVS: Normal heart rate and rhythm. Pulses normal. Respiratory: No respiratory distress. Equal air entry bilateral, no wheezing/rales/rhonchi Abdomen: Soft and nontender. Bowel sounds are present, no mass palpable, no CVA tenderness Skin: Skin warm and dry. Normal skin color. Normal skin turgor. Extremities: + lower extremity edema. No calf tenderness Neuro: Oriented X 3. No motor deficit. Medical Decision Making Medical Decision Making [facility] Narrative: Patient has stable vitals came here as did have any silicon nasal cannula which was placed in the ER no active medical complaints noticed will discharge patient back to home Discharge Plan Discharge Clinical Impression: Shortness of breath Patient Disposition: Home, Self-Care Instructions: Shortness of Breath (ED) Additional Instructions: Continue your medications, nebulizing treatments, and oxygen as advised Prescriptions: No Action loratadine 10 mg Tablet 10 mg PO DAILY PRN (Reason: Allergic Symptoms) levothyroxine 50 mcg tablet 75 mcg PO MOWEFR@0630 famotidine 20 mg tablet 20 mg PO BID montelukast 10 mg tablet 10 mg PO DAILY multivitamin Tablet 1 tab PO DAILY aspirin 81 mg Tablet,Delayed Release (Dr/Ec) 81 mg PO DAILY doxycycline monohydrate 100 mg Capsule 100 mg PO Q12H Qty: 4 0RF amlodipine 5 mg tablet 5 mg PO DAILY Qty: 30 0RF metoprolol succinate 25 mg Tablet Extended Release 24 Hr 25 mg PO DAILY Qty: 30 0RF Protocol: Hold for SBP/HR < HOLD for SBP < : 90 HOLD for HR < : 60 simvastatin 10 mg tablet 10 mg PO DAILY levothyroxine 50 mcg tablet 50 mcg PO SUTUTHSA@0630 ipratropium bromide 17 mcg/actuation HFA aerosol inhaler 2 puff inhalation QID PRN (Reason: Shortness Of Breath) gabapentin 300 mg capsule 300 mg PO BID PRN (Reason: Pain) magnesium oxide 400 mg (241.3 mg magnesium) tablet 400 mg PO BEDTIME furosemide 40 mg tablet 60 mg PO DAILY
--- NOTE | 2023-01-15 18:37 | PC.NURSE ---
call placed to primary contact EMMETT at [phone] requesting call back for collateral information
[2023-01-15 19:13] VITALS: BP 141/73; PULSE 94; RESP 20; TEMP 36.9; O2SAT 96
--- NOTE | 2023-01-15 19:48 | PC.NURSE ---
Pts granddaughter, Kelley, called back reporting pt was at home c/o having an allergic reaction to the oxygen tubing, not wearing it, and then developing sob. Pt was placed on home oxygen by the physical therapist at the rehab, stating pt would benefit from oxygen especially during walking. Pt uses 1.5L of o2 at home. Also that pt was feeling lightheaded a few days ago. Kelley reports pt having a history of COPD and asthma and uses an inhaler at home prn. Pt recently discharged from rehab and lives home alone. Kelley can be reached at [phone] (home) or (cell)
--- NOTE | 2023-01-15 21:21 | PC.NURSE ---
Called respiratory to visit with pt per MD request prior to pt being discharged.
--- NOTE | 2023-01-15 21:38 | PC.NURSE ---
Voicemail left for pts granddaughter as pt will be ready for discharge.
--- NOTE | 2023-01-15 22:33 | PC.NURSE ---
Voicemail message left to pts granddaughter as pt is discharged and needing a ride home.
[2023-01-15 22:41] VITALS: BP 136/84; PULSE 87; RESP 20; TEMP 36.8; O2SAT 98
--- NOTE | 2023-01-15 23:14 | PC.NURSE ---
No answer or call back from pts family members. Chairshahzad scheduled for transport.
[2023-01-16 05:23] VITALS: BP 146/69; PULSE 77; RESP 12; TEMP 36.9; O2SAT 98
--- NOTE | 2023-01-16 07:16 | PC.NURSE ---
assumed care of pt at 0700. pt waiting for EMS for a ride home. pts resting quietly.
== END 2023-01-16 07:44 | disposition home or self-care (01) ==
PROVIDERS: Emergency Provider Internal Medicine
DX: J44.9 Chronic obstructive pulmonary disease, unspecified (principal); R06.02 Shortness of breath; Z99.81 Dependence on supplemental oxygen; Z87.891 Personal history of nicotine dependence; Z79.899 Other long term (current) drug therapy
CPT/HCPCS: 99284

== ENCOUNTER 2023-09-12 15:13 | Emergency (ER) | payer MEDICARE, MEDICAID, SELFPAY ==
--- NOTE | ~2023-09-12 | XR_ITS ---
EXAMINATION: XR CHEST CLINICAL INFORMATION: Fall. COMPARISON: Chest radiograph 12/20/2022. TECHNIQUE: AP view of the chest was obtained. FINDINGS: Stable prominence of the cardiomediastinal silhouette. Moderate vascular calcifications in the aortic arch. Chronic reticular opacities and parenchymal hyperlucency in keeping with emphysema when correlating with prior CTs. No focal consolidation, pleural effusion or pneumothorax. No evidence of pulmonary edema. Evaluation of pulmonary nodules is limited by radiograph in view of background of emphysema, correlation with CT chest as clinically warranted. Chronic right-sided posterolateral fourth through eighth rib fractures. No acute osseous findings. XR/XR chest 1V IMPRESSION: 1. No acute cardiopulmonary findings. 2. Emphysema. 3. Chronic right-sided rib fractures.
--- NOTE | ~2023-09-12 | CT_ITS ---
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 Multiplanar reformatted images were submitted in coronal and sagittal planes. This CT examination was performed using dose optimization techniques as appropriate, variously including the following: *Automated exposure control *Adjustment of mA and/or kV according to patient size (this includes techniques or standardized protocols for targeted exams where dose is matched to indication/reason for exam; i.e. extremities or head) *Use of iterative reconstruction technique DLP: 220 mGy-cm FINDINGS: No hip fracture is seen. Some mild degenerative changes are again noted in the hip. Marked vascular calcifications are seen. The visualized sacrum and pelvis appear normal. A partially visualized right adnexal cystic mass is seen measuring at least 9.5 x 7.3 cm which appears considerably larger than it was on 07/20/2018 when measurements were 7.3 x 6.5 cm. The uterus does not appear to be present. Injection granuloma are present in the buttocks. Marked calcific atherosclerotic vascular changes are present. Colonic diverticulosis is present without diverticulitis. The bladder appears unremarkable. CT/CT hip LT wo IV con IMPRESSION: 1. No evidence of a left hip or pelvic fracture. 2. Incidental note made of enlarging right adnexal cystic mass. Pelvic ultrasound is recommended for further evaluation.
--- NOTE | ~2023-09-12 | CT_ITS ---
EXAMINATION: CT HEAD WITHOUT CONTRAST CT CERVICAL SPINE WITHOUT CONTRAST CLINICAL INFORMATION: Head trauma. COMPARISON: CT head from 05/07/2021. TECHNIQUE: Contiguous axial imaging was performed from the skull base to vertex without intravenous administration of contrast. Contiguous axial imaging was performed from the upper chest through the skull base without intravenous administration of contrast. Coronal and sagittal reformats were obtained at the acquisition workstation. This CT examination was performed using dose optimization techniques as appropriate, variously including the following: *Automated exposure control. *Adjustment of mA and/or kV according to patient size (this includes techniques or standardized protocols for targeted exams where dose is matched to indication/reason for exam; i.e. extremities or head). *Use of iterative reconstruction technique. DLP: 927 mGy-cm FINDINGS: Head: There is no evidence of acute intracranial hemorrhage or edematous territorial infarction. Hansen-white matter differentiation is preserved. Scattered and partially confluent hypoattenuation in the periventricular and deep white matter are consistent with moderate microangiopathy. Proportional prominence of the ventricles and sulcal spaces without evidence of obstructive hydrocephalus. No abnormal mass effect or midline shift. No extra-axial fluid collections. No acute soft tissue or osseous abnormalities. Mild mucosal thickening of the paranasal sinuses. The mastoid air cells and middle ear cavities are clear. Cervical Spine: The atlantooccipital and atlantoaxial articulations remain well aligned. Moderate degenerative spondylosis arthropathy of the atlantodental articulation. Minimal degenerative retrolisthesis of C3 on C4. Otherwise, there is anatomic alignment of the vertebral bodies and posterior elements. No evidence of acute fracture or subluxation. The vertebral body heights are maintained. Advanced degenerative disc disease at C6-C7. Mild to moderate degenerative disc disease at all additional levels. Facet and uncovertebral joint arthropathy leads to osseous encroachment on the neural foramina from C3-C7. There is no prevertebral soft tissue swelling. The thyroid gland and remaining cervical soft tissues are within normal limits. Extensive centrilobular emphysema the visualized lung apices CT/CT cervical spine wo IV con IMPRESSION: 1. No evidence of acute intracranial hemorrhage or edematous territorial infarction. Moderate underlying microangiopathy and generalized cerebral volume loss. 2. No evidence of acute fracture or traumatic subluxation of the cervical spine. Moderate multilevel degenerative spondyloarthropathy of the cervical spine. 3. Extensive emphysema.
--- NOTE | ~2023-09-12 | XR_ITS ---
EXAMINATION: XR HIP, LEFT CLINICAL INFORMATION: Fall. COMPARISON: Radiograph pelvis 09/21/2012. TECHNIQUE: Two views of the left hip. FINDINGS: No fracture or subluxation. 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 Symmetric SI joints with mild increased sclerosis. Pelvic ring and pubic symphysis are maintained. A few pelvic phleboliths are seen. Moderate vascular calcifications. XR/XR hip LT w PEL1V IMPRESSION: 1. No acute fracture or subluxation. 2. Moderate degenerative osteoarthritis of the hips. If the patient has persistent pain or a diminished ability to bear weight on short-term follow-up, consider obtaining an MRI of the pelvis without contrast to exclude a radiographically occult fracture.
--- NOTE | 2023-09-12 15:27 | ECG_ITS ---
Test Reason : FALL Blood Pressure : / mmHG Vent. Rate : 086 BPM Atrial Rate : 086 BPM P-R Int : 182 ms QRS Dur : 078 ms QT Int : 364 ms P-R-T Axes : 068 014 057 degrees QTc Int : 435 ms Sinus rhythm with Premature supraventricular complexes Septal infarct (cited on or before 20-DEC-2022) Abnormal ECG When compared with ECG of 27-DEC-2022 01:26, Premature supraventricular complexes are now Present Questionable change in initial forces of Septal leads Referred By: Sherry Overton Electronically Signed By:Minh Womack
--- NOTE | 2023-09-12 15:29 | ED.FALL ---
HPI - Fall General Chief Complaint: Fall Stated Complaint: Fall/Hip pain Time Seen by Provider: 09/12/23 15:20 Source: patient and old records reviewed Mode of arrival: EMS Limitations: no limitations History of Present Illness HPI Narrative: 88 yo female with PMH of RONAK, lymphedema, COPD on home 3L NC, dCHF, hypothyroidism, PAF not on anticoagulation, HTN, obesity who lives alone tripped over her O2 tubing came in with c/o L hip pain after fall onto L hip was on the ground for 1 hour until a neighbor heard her yelling. No headstrike or LOC. MD complaint: fall Onset (ago): hour(s) (1) Fall from: standing Fall witnessed: no Place fall occurred: home Loss of consciousness: none Prolonged down time: hour(s) (1) Symptoms prior to fall: none Context: tripped/slipped Location of injury: pelvis Severity: moderate Quality: aching Associated symptoms (after fall): unable to walk Related Data Home Medications Medication Instructions Recorded Confirmed furosemide 40 mg tablet 60 mg PO DAILY 07/13/20 12/21/22 gabapentin 300 mg capsule 300 mg PO BID PRN Pain 07/13/20 12/21/22 ipratropium bromide 17 2 puff inhalation QID PRN 07/13/20 12/21/22 mcg/actuation HFA aerosol inhaler Shortness Of Breath levothyroxine 50 mcg tablet 50 mcg PO SUTUTHSA@0630 07/13/20 12/21/22 magnesium oxide 400 mg (241.3 mg 400 mg PO BEDTIME 07/13/20 12/21/22 magnesium) tablet simvastatin 10 mg tablet 10 mg PO DAILY 07/13/20 12/21/22 levothyroxine 50 mcg tablet 75 mcg PO MOWEFR@0630 05/07/21 12/21/22 loratadine 10 mg tablet 10 mg PO DAILY PRN Allergic 05/07/21 12/21/22 Symptoms aspirin 81 mg tablet,delayed 81 mg PO DAILY 12/21/22 12/21/22 release famotidine 20 mg tablet 20 mg PO BID 12/21/22 12/21/22 montelukast 10 mg tablet 10 mg PO DAILY 12/21/22 12/21/22 multivitamin 1 tab PO DAILY 12/21/22 12/21/22 Previous Rx's Medication Instructions Recorded amlodipine 5 mg tablet 5 mg PO DAILY #30 tabs 12/23/22 doxycycline monohydrate 100 mg 100 mg PO Q12H #4 caps 12/23/22 capsule metoprolol succinate 25 mg 25 mg PO DAILY #30 tabs 12/23/22 tablet,extended release 24 hr Allergies Allergy/AdvReac Type Severity Reaction Status Date / Time adhesive tape [Adhesive Tape] Allergy Unknown RASH Verified 12/20/22 16:50 codeine [Codeine] Allergy Unknown SWELLING Verified 12/20/22 16:50 Iodinated Contrast Media Allergy Unknown UNKNOWN Verified 12/20/22 16:50 [IV Dye, Iodine Containing] iodine [Iodine] Allergy Unknown UNKNOWN Verified 12/20/22 16:50 oxycodone [Percocet] Allergy Unknown unknown Verified 12/20/22 16:50 papaya [Papaya] Allergy Unknown HIVES Verified 12/20/22 16:50 pineapple [Pineapple] Allergy Unknown HIVES Verified 12/20/22 16:50 strawberry [[place]] Allergy Unknown HIVES Verified 12/20/22 16:50 Codeine Phosphate Allergy Unknown unknown Uncoded 11/30/20 15:34 Novocain Allergy Unknown unknown Uncoded 11/30/20 15:34 From Vicodin AdvReac Unknown NAUSEA & Uncoded 11/30/20 15:34 VOMITING Review of Systems Review of Systems: Constitutional : No Fever, No Chills ENT/Mouth : No Ear Pain, No Hoarseness, No sore throat Eyes: No Eye Pain, No Swelling, No Redness, No Foreign Body Cardiovascular : No Chest Pain, No SOB Respiratory : No Cough, No Dyspnea Gastrointestinal : No Nausea, No Vomiting, No Diarrhea, No abdominal Pain Genitourinary : No Dysuria, No Hematuria Musculoskeletal : positive joint pain, No Myalgias, pos Joint Swelling Skin : No Skin lacerations, No rash Neuro : No Weakness, No Numbness, No Loss of Consciousness, No Dizziness, No Headache Psych : No Anxiety/Panic, No Depression All other systems reviewed and are negative [facility] Past Medical History Attestation statement: The following information was validated with the patient. Source: old records reviewed Medical History Hypothyroidism Hyperlipidemia COPD (chronic obstructive pulmonary disease) HTN (hypertension) PAF (paroxysmal atrial fibrillation) Family History Family History Father History of heart disease Mother History of heart disease Social History Social History Household Members: None Housing: House Alcohol intake: never Patient Tobacco Use Status: Former Tobacco user Advance Directives: Yes Advance Directives on File: Yes Advance Directives Date on File: 05/10/21 service: No Current occupational status: retired Physical Exam Vital Signs: Vital Signs: Last Vital Signs Temp 97.8 F 09/12/23 19:30 Pulse 88 09/12/23 19:30 Resp 17 09/12/23 19:30 BP 179/78 H 09/12/23 19:30 Pulse Ox 94 09/12/23 19:30 O2 Del Method Room Air 09/12/23 19:30 O2 Flow Rate 2 09/12/23 18:00 Oxygen Flow Rate 3 09/12/23 16:06 BMI result Body Mass Index 28.6 Appearance: Alert. Oriented X3. No acute distress. Eyes: Pupils equal, round and reactive to light. ENT: Pharynx normal. Neck: Normal inspection. Neck supple. CVS: Normal heart rate and rhythm. Pulses normal. Respiratory: No respiratory distress. Breath sounds slightly diminished Abdomen: Soft and nontender. Skin: Skin warm and dry. Normal skin color. Normal skin turgor. Extremities: hyperpigmented skin both shins no erythema 1-2+ pitting edema, L hip ttp along with contusion noted no expanding hematoma noted Neuro: Oriented X 3. No motor deficit. No sensory deficit. Course Course Course Narrative: c/o chest pain trop ordered - negative repeat ordered for 8pm EKG negative x 2 then states she takes gabapentin for it daily and this is not new doubt VTE, ACS Reevaluation(s) Reevaluation #1: repeat trop flat Medications Administered Discontinued Medications Generic Name Dose Route Start Last Admin Trade Name Ajitq PRN Reason Stop Dose Admin Acetaminophen 650 mg 09/12/23 17:23 09/12/23 18:38 Acetaminophen 325 Mg Tablet PO 09/12/23 17:24 650 mg ONCE ONE Administration Fentanyl 25 mcg 09/12/23 15:27 09/12/23 16:55 Fentanyl Citrate/Pf 100 Mcg/2 Ml Vial IVPUSH 09/12/23 15:28 25 mcg ONCE ONE Administration Protocol Gabapentin 300 mg 09/12/23 18:42 09/12/23 18:55 Gabapentin 300 Mg Capsule PO 09/12/23 18:43 300 mg ONCE ONE Administration Medical Decision Making Medical Decision Making [facility] Narrative: 88 yo female with PMH of RONAK, lymphedema, COPD on home 3L NC, dCHF, hypothyroidism, PAF not on anticoagulation, HTN, obesity here s/p mechanical fall onto L hip at this time will need labs and given age though she denies trauma to head and neck will obtain CT head/cspine and CXR along with EKG, basic labs, hip xray, IV fentanyl ordered. No preceding symptoms states she tripped on her O2 tubing. Differential Diagnosis Differential Diagnoses: The differential diagnosis associated with the presentation includes hip contusion, hip fracture, fall risk Admission/Observation Consideration of admission/observation: Escalation of care including admission/observation considered PT/CM placed in observation at 641pm for PT/CM given pain and inability to ambulate after negative CT hip Lab Data [facility] Lab Attestation statement: I reviewed the patient's lab results. 09/12/23 16:36 09/12/23 16:36 Labs: Lab Results 09/12/23 09/12/23 09/12/23 Range/Units 16:36 18:07 20:18 WBC 5.9 (4.8-10.8) X10*3/uL RBC 4.06 L (4.20-5.50) X10*6/uL Hgb 12.6 (12.0-16.0) g/dl Hct 38.4 (37.0-47.0) % MCV 94.6 (80.0-98.0) fL MCH 31.0 (27.0-33.0) pg MCHC 32.8 (31.0-35.0) g/dl RDW 13.0 (11.0-16.0) % Plt Count 204 (160-400) X10*3/uL MPV 10.6 (9.4-12.3) fL Immature Gran % (Auto) 0.3 (0.0-0.4) % Neut % (Auto) 68.1 (45-73) % Lymph % (Auto) 17.5 L (20-40) % [place] % (Auto) 6.7 (2-11) % Eos % (Auto) 6.6 H (0-4) % Baso % (Auto) 0.8 (0-2) % Lymph # (Auto) 1.0 L (1.2-4.9) X10*3/uL [place] # (Auto) 0.4 (0.1-1.2) X10*3/uL Eos # (Auto) 0.4 (0.0-0.4) X10*3/uL Baso # (Auto) 0.1 (0.0-0.2) X10*3/uL Abs Immat Gran (auto) 0.02 (0.00-0.03) X10*3/uL Absolute Neuts (auto) 4.0 (2.0-8.3) x10*3/uL Absolute Nucleated RBC 0.000 (0.0-0.012) X10*3/uL Nucleated RBC % (auto) 0.0 (0.0-0.2) /100WBC Sodium 140 (135-145) mmol/L Potassium 3.6 (3.3-5.1) mmol/L Chloride 100 (96-108) mmol/L Carbon Dioxide 33 H (22-29) mmol/L Anion Gap 11 L (12-20) BUN 13 (9-16) mg/dL Creatinine 1.31 (0.5-1.4) mg/dL Estim Creat Clear Calc 31.2 Estimated GFR 38 Random Glucose 107 (60-115) mg/dL Calcium 9.9 D (8.4-10.2) mg/dL Magnesium 1.8 (1.6-2.6) mg/dL Total Bilirubin 0.6 (0.0-1.0) mg/dL Direct Bilirubin 0.2 (0.0-0.5) mg/dL AST 22 (5-31) U/L ALT 11 (0-31) U/L Alkaline Phosphatase 134 H (39-117) U/L Total Creatine Kinase 107 (26-140) U/L Troponin I High Sens 9.6 10.4 (<3.5-17.0) ng/L Total Protein 8.0 (6.5-8.0) g/dL Albumin 4.1 (3.5-5.0) g/dL Independent Interpretation I performed an independent interpretation of an: EKG, Plain X-Ray (no fx) and CT Scan (no fracture no trauma) Interpretation: Rate: 86 Rhythm: NSR [place]: normal Normal P waves. Normal LJ. Normal QRS complex. ST T wave : no DEVIN, normal qTC: 435 prior studies: no acute ischemia The study has been interpreted contemporaneously by me. EKG #2 Rate: 93 Rhythm: NSR [place]: normal Normal P waves. Normal LJ. Normal QRS complex. ST T wave : normal no DEVIN qTC: 460 prior studies: no acute ischemia The study has been interpreted contemporaneously by me. . Radiology Impression Discussion of test interpretation with radiology: I have reviewed the radiologist's reading. Independent Historian Clinical information obtained from an independent historian. History obtained from or confirmed by: EMS External Record Review External record reviewed: Inpatient record Discharge Plan Discharge Clinical Impression: Contusion of hip, left Qualifiers: Encounter type: initial encounter Qualified Code(s): S70.02XA - Contusion of left hip, initial encounter Patient Disposition: Still a Patient Prescriptions: No Action loratadine 10 mg Tablet 10 mg PO DAILY PRN (Reason: Allergic Symptoms) levothyroxine 50 mcg tablet 75 mcg PO MOWEFR@0630 famotidine 20 mg tablet 20 mg PO BID montelukast 10 mg tablet 10 mg PO DAILY multivitamin Tablet 1 tab PO DAILY aspirin 81 mg Tablet,Delayed Release (Dr/Ec) 81 mg PO DAILY doxycycline monohydrate 100 mg Capsule 100 mg PO Q12H Qty: 4 0RF amlodipine 5 mg tablet 5 mg PO DAILY Qty: 30 0RF metoprolol succinate 25 mg Tablet Extended Release 24 Hr 25 mg PO DAILY Qty: 30 0RF Protocol: Hold for SBP/HR < HOLD for SBP < : 90 HOLD for HR < : 60 simvastatin 10 mg tablet 10 mg PO DAILY levothyroxine 50 mcg tablet 50 mcg PO SUTUTHSA@0630 ipratropium bromide 17 mcg/actuation HFA aerosol inhaler 2 puff inhalation QID PRN (Reason: Shortness Of Breath) gabapentin 300 mg capsule 300 mg PO BID PRN (Reason: Pain) magnesium oxide 400 mg (241.3 mg magnesium) tablet 400 mg PO BEDTIME furosemide 40 mg tablet 60 mg PO DAILY
[2023-09-12 16:06] VITALS: BP 168/80; BP 194/74; PULSE 88; PULSE 93; RESP 18; TEMP 36.3; O2SAT 93; O2SAT 96; BMI 28.6
[2023-09-12 16:41] LABS: MANUAL DIFF FLAG NO
[2023-09-12 16:42] LABS: Basophils Absolute Auto 0.1 X10*3/uL (0.0-0.2); Basophils Percent Auto 0.8 % (0-2); Eosinophils Absolute Auto 0.4 X10*3/uL (0.0-0.4); Eosinophils Percent Auto 6.6 % (0-4); Hematocrit 38.4 % (37.0-47.0); Hemoglobin 12.6 g/dl (12.0-16.0); Imm Gran Abs Auto 0.02 X10*3/uL (0.00-0.03); Imm Gran Pct Auto 0.3 % (0.0-0.4); Lymphocytes Percent Auto 17.5 % (20-40); Mean Corpuscular HGB Conc 32.8 g/dl (31.0-35.0); Mean Corpuscular Volume 94.6 fL (80.0-98.0); Mean Platelet Volume 10.6 fL (9.4-12.3); Monocytes Absolute Auto 0.4 X10*3/uL (0.1-1.2); Monocytes Percent Auto 6.7 % (2-11); Neutrophils Percent Auto 68.1 % (45-73); Platelet Count 204 X10*3/uL (160-400); Red Blood Count 4.06 X10*6/uL (4.20-5.50); White Blood Count 5.9 X10*3/uL (4.8-10.8)
[2023-09-12 16:55] VITALS: RESP 14
[2023-09-12 16:55] LABS: Alanine Aminotransferase 11 U/L (0-31); Albumin Level 4.1 g/dL (3.5-5.0); Alkaline Phosphatase 134 U/L (39-117); Anion Gap 11 (12-20); Aspartate Amino Transferase 22 U/L (5-31); Bilirubin Direct 0.2 mg/dL (0.0-0.5); Bilirubin Total 0.6 mg/dL (0.0-1.0); Blood Urea Nitrogen 13 mg/dL (9-16); Calcium 9.9 mg/dL (8.4-10.2); Carbon Dioxide 33 mmol/L (22-29); Chloride 100 mmol/L (96-108); Creatinine Clr Calc Pharmacy 31.2; Estimated Glomerular Filt Rate 38; Glucose Random 107 mg/dL (60-115); Magnesium 1.8 mg/dL (1.6-2.6); Potassium 3.6 mmol/L (3.3-5.1); Sodium 140 mmol/L (135-145)
[2023-09-12] MEDS: fentaNYL citrate/PF 100 MCG/2 ML VIAL 25 MCG IVPUSH (16:55)
[2023-09-12 18:00] VITALS: BP 186/95; PULSE 89; RESP 16; O2SAT 96
--- NOTE | 2023-09-12 18:24 | ECG_ITS ---
Test Reason : REPEAT Blood Pressure : / mmHG Vent. Rate : 093 BPM Atrial Rate : 093 BPM P-R Int : 172 ms QRS Dur : 076 ms QT Int : 370 ms P-R-T Axes : 052 037 075 degrees QTc Int : 460 ms Sinus rhythm with Premature atrial complexes Septal infarct (cited on or before 20-DEC-2022) Abnormal ECG When compared with ECG of 12-SEP-2023 16:06, Nonspecific T wave abnormality now evident in Inferior leads Referred By: Sherry Overton Electronically Signed By:Minh Womack
[2023-09-12 18:31] LABS: Troponin-I High Sensitivity 9.6 ng/L (<3.5-17.0)
[2023-09-12] MEDS: Acetaminophen 325 MG TABLET 650 MG PO (18:38)
[2023-09-12] MEDS: Gabapentin 300 MG CAPSULE PO (18:55)
[2023-09-12 19:30] VITALS: BP 179/78; PULSE 88; RESP 17; TEMP 36.6; O2SAT 94
[2023-09-12 20:50] LABS: Troponin-I High Sensitivity 10.4 ng/L (<3.5-17.0)
[2023-09-12 21:44] VITALS: BP 174/77; PULSE 76; RESP 16; O2SAT 96
--- NOTE | 2023-09-12 21:48 | MHC.EDTECH ---
Pt's output 950ml's with Purewick suction. Pt was repositioned in bed with extensive assistance of 1. Pt tolerated activity well.
[2023-09-12] MEDS: Montelukast Sodium 10 MG TABLET PO (21:57)
[2023-09-12] MEDS: Magnesium Oxide 400 MG TABLET PO (21:57)
[2023-09-12] MEDS: Famotidine 20 MG TABLET PO (21:57)
[2023-09-12] MEDS: amLODIPine Besylate 5 MG TABLET PO (21:57)
[2023-09-12] MEDS: Furosemide 20 MG TABLET PO (21:57)
--- NOTE | 2023-09-12 22:00 | PC.NURSE ---
pt medciated per sep, tolerated well with water. pt a&ox4, respirations even and unlabored. purewick in place at this time. no new orders.
--- NOTE | 2023-09-12 22:23 | PHA.MEDREC ---
Pharmacy Consult ? Medication Reconciliation Pharmacy has completed the medication reconciliation. Patient reported medications. Shana Steward, MendyD
--- NOTE | 2023-09-12 23:23 | MHC.CM.ED ---
Addendum entered by Amie Bravo 09/12/23 23:39: HCP reviewed, completed and signed. Copies given. Uploaded into [facility] [employer] and [facility] [employer]. Original Note: CM met with patient at the request of Dr. Overton. Pt had a slip and fall at home over her oxygen tubing. A&Ox3. Independent. Lives alone. Does not drive. Home oxygen at 3L. Cannot remember oxygen company name/ Has a cane, walker and wheelchair. Has no services at home. Pt granddaughter/HCP Kelley Saldivar ([phone]) grocery shops and pays her bills. Will complete HCP. 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 Pt awaiting PT assessment. Pt does not have a qualifying stay. Has no funds for STR. No referrals made at this time. Pt is agreeable to home PT if needed. CM will follow for discharge planning.
[2023-09-13] VITALS (7 sets, daily range): BP systolic 139–181; BP diastolic 52–77; PULSE 64–90; RESP 15–18; TEMP 36.4–37; O2SAT 95–98
[2023-09-13] MEDS: Acetaminophen 325 MG TABLET 975 MG PO (01:29)
[2023-09-13] MEDS: Gabapentin 300 MG CAPSULE PO ×3 (01:29→21:59)
--- NOTE | 2023-09-13 01:31 | PC.NURSE ---
pt medicated per mar for 10/10 bilateral lower leg pain. pt tolerated well with water.
--- NOTE | 2023-09-13 03:25 | PC.NURSE ---
pt reporting 10/10 left ankle pain. pt given heat pack with relief at this time.
[2023-09-13] MEDS: Levothyroxine Sodium 75 MCG TABLET PO (06:25)
--- NOTE | 2023-09-13 06:27 | PC.NURSE ---
upon changing pt socks, pt noted to have +1 pitting edema of bilateral lower extremities. 700ml yellow urine in purewick container.
[2023-09-13] MEDS: Aspirin Enteric Coated 81 MG TABLET.DR PO (08:47)
[2023-09-13] MEDS: Furosemide 20 MG TABLET PO ×2 (08:48→12:29)
[2023-09-13] MEDS: Multivitamin TABLET 1 TAB PO (08:48)
[2023-09-13] MEDS: Famotidine 20 MG TABLET PO ×2 (08:48→21:59)
[2023-09-13] MEDS: Atorvastatin Calcium 10 MG TABLET PO (08:48)
[2023-09-13] MEDS: amLODIPine Besylate 5 MG TABLET PO ×2 (08:55→21:59)
--- NOTE | 2023-09-13 09:05 | PC.NURSE ---
Patient is alert and oriented, respirations even and unlabored, lung sounds clear throughout, patient reports no pain, redness noted in BLE, VSS, call peters within reach. Patient awaiting SNIF placement.
[2023-09-13 09:20] LABS: COVID-19 Test Negative (Negative); IDNOW Serial# 9DB6401D
--- NOTE | 2023-09-13 10:37 | MHC.CM.PN ---
CM MET WITH PTS GRANDDAUGHTER AT BEDSIDE SHE REPORTS THE PT DOES NOT HAVE A QHS, THE LAST TIME SHE WAS IN A REHAB WAS LAST SUMMER SHE IS AWARE OF THE BARRIERS TO PLACEMENT AND HAS REQUESTED A REFERRAL TO [facility]UTE [facility]HABS REFERRAL PLACED
--- NOTE | 2023-09-13 12:15 | MHC.CM.ED ---
Addendum entered by Jasmin Loomis 09/13/23 15:22: Patient will transfer to [facility] via [facility] 09/13 at 9am. Addendum entered by Jasmin Loomis 09/13/23 14:42: [facility] and [facility] are able to offer a bed. Attempted to speak with patient. Patient currently sleeping. Spoke with patient's granddaughter/HCP, Kelley via telephone at [phone]. Kelley accepts bed at [facility]. MDS completed. Faxed to [facility] and sent to [facility]. Waiting for [facility] leveling from [facility] before patient can transfer to [facility]. Original Note: Patient remains in ER. PT rec STR. Acute rehab is not able to offer a bed. Patient has [facility] standard. Met with patient's granddaughter Kelley. Explained [facility] [address] does not accept MH. Kelley agreeable to referral being sent to facilities in [place] and [place]. Referrals made to [facility], [facility], [facility], [facility] and [facility]. Continue to monitor for d/c needs.
--- NOTE | 2023-09-13 17:19 | PC.NURSE ---
Patient currently sleeping, respirations even and unlabored, will continue to monitor.
--- NOTE | 2023-09-13 21:30 | PC.NURSE ---
Assumed care of patient at this time.
[2023-09-13] MEDS: Magnesium Oxide 400 MG TABLET PO (21:59)
[2023-09-13] MEDS: Montelukast Sodium 10 MG TABLET PO (21:59)
[2023-09-14] MEDS: Levothyroxine Sodium 50 MCG TABLET PO (05:38)
[2023-09-14 05:57] VITALS: BP 174/79; PULSE 72; RESP 18; TEMP 36.7; O2SAT 98
--- NOTE | 2023-09-14 05:59 | PC.NURSE ---
Patient c/o left sided chest pain under breast, 04/18 at this time. Pain began at rest, upon waking for morning levothyroxine. Pain not reproducible upon palpation, however worse with respiration and movement, is self limiting, does not radiate. 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 Vitals BP- 174/79, HR- 72, O2-98% on 3L. Provider Ana Paula Schultz aware. EKG obtained.
--- NOTE | 2023-09-14 06:09 | ECG_ITS ---
Test Reason : CHEST PAIN Blood Pressure : / mmHG Vent. Rate : 080 BPM Atrial Rate : 080 BPM P-R Int : 178 ms QRS Dur : 080 ms QT Int : 386 ms P-R-T Axes : 063 041 051 degrees QTc Int : 445 ms Sinus rhythm with occasional Premature ventricular complexes Nonspecific ST abnormality Abnormal ECG When compared with ECG of 12-SEP-2023 18:31, Premature ventricular complexes are now Present Premature atrial complexes are no longer Present Criteria for Septal infarct are no longer Present Nonspecific T wave abnormality, improved in Inferior leads Referred By: Ana Paula Schultz Electronically Signed By:Minh Womack
[2023-09-14 07:01] LABS: Troponin-I High Sensitivity 14.4 ng/L (<3.5-17.0)
--- NOTE | 2023-09-14 08:09 | PC.NURSE ---
Addendum entered by Arabella Norris 09/14/23 08:21: patient takes medications one pill at a time, whole, with water Original Note: awake, eating breakfast. patient reporting no further chest pain at this time, plan for repeat troponin approx 0830
[2023-09-14] MEDS: Aspirin Enteric Coated 81 MG TABLET.DR PO (08:12)
[2023-09-14] MEDS: Famotidine 20 MG TABLET PO (08:12)
[2023-09-14] MEDS: Furosemide 20 MG TABLET PO (08:12)
[2023-09-14] MEDS: Multivitamin TABLET 1 TAB PO (08:12)
[2023-09-14] MEDS: Gabapentin 300 MG CAPSULE PO (08:12)
[2023-09-14] MEDS: Atorvastatin Calcium 10 MG TABLET PO (08:13)
[2023-09-14] MEDS: amLODIPine Besylate 5 MG TABLET PO (08:13)
--- NOTE | 2023-09-14 09:07 | PC.NURSE ---
pending results of repeat troponin prior to discharge
[2023-09-14 09:39] LABS: Troponin-I High Sensitivity 12.7 ng/L (<3.5-17.0)
== END 2023-09-14 11:17 ==
PROVIDERS: Physician Assistant; Physician Assistant Medical; Student in an Organized Health Care Education/Training Program; Emergency Provider Emergency Medicine; PCP Internal Medicine
DX: S09.90XA Unspecified injury of head, initial encounter (principal); S70.02XA Contusion of left hip, initial encounter; R07.89 Other chest pain; R07.81 Pleurodynia; R26.81 Unsteadiness on feet; R51.9 Headache, unspecified; M54.2 Cervicalgia; M25.552 Pain in left hip; W01.10XA Fall on same level from slipping, tripping and stumbling with subsequent striking against unspecified object, initial encounter; Y93.9 Activity, unspecified; Y92.009 Unspecified place in unspecified non-institutional (private) residence as the place of occurrence of the external cause; Y99.8 Other external cause status; Z79.899 Other long term (current) drug therapy; Z11.52 Encounter for screening for COVID-19
CPT/HCPCS: 36415; 70450; 71045; 72125; 73502; 73700; 80048; 80076; 82550; 83735; 84484; 85025; 87635; 93005; 97162; 99285; J3010

== ENCOUNTER → 2023-09-12 15:27 | Outpatient (BNV) | payer MEDICARE, MEDICAID, SELFPAY | PROVIDERS: Emergency Provider Emergency Medicine; PCP Internal Medicine; Visit Provider Internal Medicine Cardiovascular Disease | DX: R94.31 Abnormal electrocardiogram [ECG] [EKG] (principal) | CPT/HCPCS: 93010 ==

== ENCOUNTER → 2023-09-14 06:09 | Outpatient (BNV) | payer MEDICARE, MEDICAID, SELFPAY | PROVIDERS: Emergency Provider Emergency Medicine; PCP Internal Medicine; Visit Provider Internal Medicine Cardiovascular Disease | DX: R94.31 Abnormal electrocardiogram [ECG] [EKG] (principal) | CPT/HCPCS: 93010 ==

== ENCOUNTER 2023-09-28 10:30 | Inpatient (IN) | payer MEDICARE, MEDICAID, SELFPAY ==
[2023-09-28] VITALS (15 sets, daily range): BP systolic 108–203; BP diastolic 47–80; PULSE 67–124; RESP 17–30; TEMP 36.6–39.9; O2SAT 88–98; BMI 53.3; BMI 24.3
--- NOTE | 2023-09-28 | ECG_ITS ---
Test Reason : Bigeminy Blood Pressure : / mmHG Vent. Rate : 092 BPM Atrial Rate : 000 BPM P-R Int : 000 ms QRS Dur : 066 ms QT Int : 378 ms P-R-T Axes : 000 027 084 degrees QTc Int : 467 ms Normal sinus rhythm Premature atrial complexes Anteroseptal infarct , age undetermined Abnormal ECG When compared with ECG of 28-SEP-2023 11:27, No significant changes seen Referred By: Rodrigue Issa Electronically Signed By:BRISA LUU
--- NOTE | ~2023-09-28 | XR_ITS ---
EXAMINATION: XR CHEST CLINICAL INFORMATION: Dyspnea COMPARISON: 09/28/2023 TECHNIQUE: Frontal view of the chest was obtained. FINDINGS: Lung volumes are symmetric. Possible mild left basilar opacity laterally and trace left pleural effusion, though this could be artifactual due to patient rotation. Right lung appears well-aerated. No evidence of pneumothorax or pulmonary edema. Cardiac size appears within normal limits accounting for patient rotation. No acute osseous findings are seen. XR/XR chest 1V IMPRESSION: Possible mild left basilar opacity laterally and trace left pleural effusion, though this could be artifactual due to patient rotation. Otherwise, no acute findings identified.
--- NOTE | ~2023-09-28 | XR_ITS ---
EXAMINATION: XR CHEST CLINICAL INFORMATION: Dyspnea COMPARISON: Chest radiograph 09/12/[address] chest 07/22/2018 TECHNIQUE: Frontal view of the chest was obtained. FINDINGS: Compared to the prior study, there's been no interval change again noted is normal heart size with mildly unfolded aorta and background emphysema. Chronic increased reticular nodular markings are again noted. Old healed right rib fractures are seen. No acute infiltrates or effusions are seen. There is no evidence of gross CHF. XR/XR chest 1V IMPRESSION: No acute intrathoracic disease. Emphysema.
--- NOTE | 2023-09-28 10:44 | ECG_ITS ---
Test Reason : DYSPNEA Blood Pressure : / mmHG Vent. Rate : 115 BPM Atrial Rate : 133 BPM P-R Int : 144 ms QRS Dur : 086 ms QT Int : 350 ms P-R-T Axes : 085 031 089 degrees QTc Int : 484 ms Artifact in tracing Sinus tachycardia Premature atrial complexes Possible Inferior infarct , age undetermined Abnormal ECG When compared with ECG of 14-SEP-2023 06:12, Premature atrial complexes noted Referred By: Sherry Overton Electronically Signed By:BRISA LUU
--- NOTE | 2023-09-28 10:58 | ED_ITS ---
HPI - SOB/Dyspnea General Chief Complaint: General Medical Stated Complaint: INCREASED LETHARGY Time Seen by Provider: 09/28/23 10:37 Source: EMS and old records reviewed Mode of arrival: EMS Limitations: altered mental status History of Present Illness HPI Narrative: 88 yo female with PMH of RONAK, lymphedema, COPD on home 3L NC, dCHF, hypothyroidism, PAF not on anticoagulation, HTN here with reported 1 to 2 days of shortness of breath, hypoxic today on 3L [place] EMS bumped her up to 6L still 88%, increased work of breathing hot to the touch, yellow sputum production. MD elicited complaint: shortness of breath Pertinent past history: COPD and asthma Onset (ago): day(s) (1-2 days) Timing: progressively worsening Severity: severe Exacerbating factors: exertion and coughing Relieving factors: oxygen Known history of: COPD Associated symptoms: fever, cough, wheezing and sputum production Treatment prior to arrival: oxygen Related Data Home Medications Medication Instructions Recorded Confirmed furosemide 40 mg tablet 20 mg PO TID@0900,1300,2100 07/13/20 09/12/23 gabapentin 300 mg capsule 300 mg PO BID Pain 07/13/20 09/12/23 ipratropium bromide 17 2 puff inhalation QID PRN 07/13/20 09/12/23 mcg/actuation HFA aerosol inhaler Shortness Of Breath levothyroxine 50 mcg tablet 50 mcg PO SUTUTHSA@0630 07/13/20 09/12/23 magnesium oxide 400 mg (241.3 mg 400 mg PO BEDTIME 07/13/20 09/12/23 magnesium) tablet simvastatin 10 mg tablet 10 mg PO DAILY 07/13/20 09/12/23 levothyroxine 50 mcg tablet 75 mcg PO MOWEFR@0630 05/07/21 09/12/23 aspirin 81 mg tablet,delayed 81 mg PO DAILY 12/21/22 09/12/23 release famotidine 20 mg tablet 20 mg PO BID 12/21/22 09/12/23 montelukast 10 mg tablet 10 mg PO BEDTIME 12/21/22 09/12/23 multivitamin 1 tab PO DAILY 12/21/22 09/12/23 amlodipine 5 mg tablet 5 mg PO BID 09/12/23 09/12/23 naproxen sodium 220 mg tablet 220 mg PO Q8H PRN Pain 09/12/23 09/12/23 (Aleve) Allergies Allergy/AdvReac Type Severity Reaction Status Date / Time adhesive tape [Adhesive Tape] Allergy Unknown RASH Verified 12/20/22 16:50 codeine [Codeine] Allergy Unknown SWELLING Verified 12/20/22 16:50 Iodinated Contrast Media Allergy Unknown UNKNOWN Verified 12/20/22 16:50 [IV Dye, Iodine Containing] iodine [Iodine] Allergy Unknown UNKNOWN Verified 12/20/22 16:50 oxycodone [Percocet] Allergy Unknown unknown Verified 12/20/22 16:50 papaya [Papaya] Allergy Unknown HIVES Verified 12/20/22 16:50 pineapple [Pineapple] Allergy Unknown HIVES Verified 12/20/22 16:50 strawberry [[place]] Allergy Unknown HIVES Verified 12/20/22 16:50 Codeine Phosphate Allergy Unknown unknown Uncoded 11/30/20 15:34 Novocain Allergy Unknown unknown Uncoded 11/30/20 15:34 From Vicodin AdvReac Unknown NAUSEA & Uncoded 11/30/20 15:34 VOMITING Review of Systems 2 Review of Systems: ROS unable to be obtained due to altered mental status [facility] Past Medical History Source: old records reviewed Medical History (Updated 09/28/23 @ 15:37 by BANG Pelletier) Myocardial infarction Hypothyroidism Hyperlipidemia COPD (chronic obstructive pulmonary disease) HTN (hypertension) PAF (paroxysmal atrial fibrillation) Family History Family History Father History of heart disease Mother History of heart disease Social History Social History Household Members: None Housing: House Alcohol intake: never Patient Tobacco Use Status: Former Tobacco user Smoked in Last 30 Days: No Use of substances other than those prescribed or required for medical reasons: No Advance Directives: Yes Advance Directives on File: Yes Advance Directives Date on File: 05/10/21 Nutrition Risks: No Nutritional Risk service: No Current occupational status: retired Physical Exam 2 Vital Signs: Vital Signs: Last Vital Signs Temp 102.0 F H 09/28/23 12:29 Pulse 74 09/28/23 15:10 Resp 19 09/28/23 15:10 BP 157/80 H 09/28/23 15:10 Pulse Ox 96 03/21/24 15:10 O2 Del Method High Flow Nasal C annula 09/28/23 15:10 O2 Flow Rate 40 09/28/23 15:10 Oxygen Flow Rate 5 09/28/23 11:11 BMI result Body Mass Index 53.3 Appearance: Slightly somnolent appears dazed Oriented X2. Mild acute distress. Eyes: Pupils equal, round and reactive to light. ENT: Pharynx normal. Neck: Normal inspection. Neck supple. CVS: tachycardic heart rate and rhythm. Pulses normal. Respiratory: Mild respiratory distress tachypnea and retractions Breath sounds diminshed and wheezes noted Abdomen: Soft and nontender. Skin: Skin warm and dry. pale skin color. Normal skin turgor. Extremities: No lower extremity edema. No calf ttp Neuro: Oriented X 2. No motor deficit. No sensory deficit. Course Course Course Narrative: patient is coming around will hold off CT head and CT chest tolerating high flow well she is more of herself will repeat trop and admit trop did rise just at delta but no chest pain and likely demand from hypoxia and viral illness Medications Administered Discontinued Medications Generic Name Dose Route Start Last Admin Trade Name Freq PRN Reason Stop Dose Admin Acetaminophen 650 mg 09/28/23 11:08 09/28/23 11:28 Acetaminophen 325 Mg Tablet PO 09/28/23 11:09 650 mg ONCE ONE Administration Albuterol Sulfate 5 mg/ 0 mg 09/28/23 10:57 09/28/23 11:06 Albuterol/Ipratropium 3 ml INHALE 09/28/23 10:58 7.5 each ONCE ONE Administration Sodium Chloride 1,000 mls @ 999 mls/hr 09/28/23 10:45 09/28/23 12:00 Ns IVCONT 09/28/23 11:45 Infused .Q1H1M TOBI Infusion Ceftriaxone Sodium 1 gm/ 50 mls @ 100 mls/hr 09/28/23 10:45 09/28/23 12:33 Sodium Chloride IV 09/28/23 11:14 Infused ONCE ONE Infusion Methylprednisolone Sodium Succinate 60 mg 09/28/23 10:45 09/28/23 11:29 Methylprednisolone Sod Succ 125 Mg/2 Ml Vial IVPUSH 09/28/23 10:46 60 mg ONCE ONE Administration Oseltamivir Phosphate 75 mg 09/28/23 12:31 09/28/23 13:40 Oseltamivir Phosphate 75 Mg Capsule PO 09/28/23 12:32 75 mg ONCE ONE Administration Medical Decision Making Medical Decision Making [facility] Narrative: 88 yo female with PMH of RONAK, lymphedema, COPD on home 3L NC, dCHF, hypothyroidism, PAF not on anticoagulation, HTN here with c/o increased work of breathing, hypoxia, fevers from local SNF at this time labs, cultures, lactic acid, tylenol empiric ceftriaxone she will get nebs and started on oxymask. Possible viral syndrome, pneumonia, UTI. Differential Diagnosis Differential Diagnoses: The differential diagnosis associated with the presentation includes viral syndrome, COPD, UTI, pneumonia Admission/Observation Consideration of admission/observation: Escalation of care including admission/observation considered admit given increased O2 demands and sepsis Consult Healthcare Provider Management of the patient was discussed with: Hospitalist (will admit) Lab Data [facility] Lab Attestation statement: I reviewed the patient's lab results. 09/28/23 11:20 09/28/23 11:20 Labs: Lab Results 09/28/23 09/28/23 09/28/23 Range/Units 11:20 11:21 11:26 WBC 11.7 H (4.8-10.8) X10*3/uL RBC 4.57 (4.20-5.50) X10*6/uL Hgb 14.1 (12.0-16.0) g/dl Hct 41.9 (37.0-47.0) % MCV 91.7 (80.0-98.0) fL MCH 30.9 (27.0-33.0) pg MCHC 33.7 (31.0-35.0) g/dl RDW 12.2 (11.0-16.0) % Plt Count 124 L D (160-400) X10*3/uL MPV 12.4 H (9.4-12.3) fL Immature Gran % (Auto) 0.4 (0.0-0.4) % Neut % (Auto) 86.7 H (45-73) % Lymph % (Auto) 5.5 L (20-40) % [place] % (Auto) 7.2 (2-11) % Eos % (Auto) 0.0 (0-4) % Baso % (Auto) 0.2 (0-2) % Lymph # (Auto) 0.6 L (1.2-4.9) X10*3/uL [place] # (Auto) 0.9 (0.1-1.2) X10*3/uL Eos # (Auto) 0.0 (0.0-0.4) X10*3/uL Baso # (Auto) 0.0 (0.0-0.2) X10*3/uL Abs Immat Gran (auto) 0.05 H (0.00-0.03) X10*3/uL Absolute Neuts (auto) 10.2 H (2.0-8.3) x10*3/uL Absolute Nucleated RBC 0.000 (0.0-0.012) X10*3/uL Nucleated RBC % (auto) 0.0 (0.0-0.2) /100WBC PT 11.1 (11.1-13.3) SEC INR 0.9 (0.9-1.1) VBG pH 7.51 H (7.32-7.43) VBG pCO2 43 mmHg VBG pO2 73 mmHg VBG HCO3 35 H (22-26) mmol/L VBG O2 Saturation 94.0 % VBG Base Excess 11.0 mmol/L Sodium 137 (135-145) mmol/L Potassium 3.7 (3.3-5.1) mmol/L Chloride 94 L (96-108) mmol/L Carbon Dioxide 29 (22-29) mmol/L Anion Gap 18 (12-20) BUN 33 H (9-16) mg/dL Creatinine 1.45 H (0.5-1.4) mg/dL Estim Creat Clear Calc 41.1 Estimated GFR 34 Random Glucose 149 H (60-115) mg/dL Lactic Acid 1.6 (0.5-2.0) mmol/L Calcium 9.2 D (8.4-10.2) mg/dL Magnesium 2.2 (1.6-2.6) mg/dL Total Bilirubin 0.4 (0.0-1.0) mg/dL Direct Bilirubin 0.2 (0.0-0.5) mg/dL AST 50 H (5-31) U/L ALT 19 (0-31) U/L Alkaline Phosphatase 90 (39-117) U/L Ammonia 32 (13-55) umol/L Troponin I High Sens 43.4 H D (<3.5-17.0) ng/L B-Natriuretic Peptide 58 (<100) pg/mL Total Protein 7.9 (6.5-8.0) g/dL Albumin 3.8 (3.5-5.0) g/dL Lipase 73 (8-78) U/L Procalcitonin 0.16 ng/mL TSH 1.63 (0.32-4.0) uIU/mL Urine Color Yellow Urine Appearance Turbid Urine pH 8.5 (5.0-9.0) Ur Specific [place] 1.020 (1.005-1.025) Urine Protein >=1000 (4+) H (Neg-Trace) mg/dL Urine Glucose (UA) Negative (Negative) mg/dL Urine Ketones Trace (Negative) mg/dL Urine Blood Large (3+) H (Negative) Urine Nitrite Positive H (Negative) Ur Leukocyte Esterase Large (3+) H (Negative) Urine RBC >20 H (0-2) /HPF Urine WBC >50 H (0-5) /HPF Ur Squamous Epith Cells 3-5 (0-2) /HPF Other Crystals Present Urine Bacteria 4+ (None Seen) Hyaline Casts >20 (0-2) /LPF Influenza Type A (PCR) POSITIVE A (Negative) Influenza Type B (PCR) NEGATIVE (Negative) RSV RNA Qual (PCR) NEGATIVE (Negative) SARS-CoV-2 RNA (RT-PCR) NEGATIVE (Negative) 09/28/23 Range/Units 13:49 WBC (4.8-10.8) X10*3/uL RBC (4.20-5.50) X10*6/uL Hgb (12.0-16.0) g/dl Hct (37.0-47.0) % MCV (80.0-98.0) fL MCH (27.0-33.0) pg MCHC (31.0-35.0) g/dl RDW (11.0-16.0) % Plt Count (160-400) X10*3/uL MPV (9.4-12.3) fL Immature Gran % (Auto) (0.0-0.4) % Neut % (Auto) (45-73) % Lymph % (Auto) (20-40) % [place] % (Auto) (2-11) % Eos % (Auto) (0-4) % Baso % (Auto) (0-2) % Lymph # (Auto) (1.2-4.9) X10*3/uL [place] # (Auto) (0.1-1.2) X10*3/uL Eos # (Auto) (0.0-0.4) X10*3/uL Baso # (Auto) (0.0-0.2) X10*3/uL Abs Immat Gran (auto) (0.00-0.03) X10*3/uL Absolute Neuts (auto) (2.0-8.3) x10*3/uL Absolute Nucleated RBC (0.0-0.012) X10*3/uL Nucleated RBC % (auto) (0.0-0.2) /100WBC PT (11.1-13.3) SEC INR (0.9-1.1) VBG pH (7.32-7.43) VBG pCO2 mmHg VBG pO2 mmHg VBG HCO3 (22-26) mmol/L VBG O2 Saturation % VBG Base Excess mmol/L Sodium (135-145) mmol/L Potassium (3.3-5.1) mmol/L Chloride (96-108) mmol/L Carbon Dioxide (22-29) mmol/L Anion Gap (12-20) BUN (9-16) mg/dL Creatinine (0.5-1.4) mg/dL Estim Creat Clear Calc Estimated GFR Random Glucose (60-115) mg/dL Lactic Acid (0.5-2.0) mmol/L Calcium (8.4-10.2) mg/dL Magnesium (1.6-2.6) mg/dL Total Bilirubin (0.0-1.0) mg/dL Direct Bilirubin (0.0-0.5) mg/dL AST (5-31) U/L ALT (0-31) U/L Alkaline Phosphatase (39-117) U/L Ammonia (13-55) umol/L Troponin I High Sens 65.0 H* (<3.5-17.0) ng/L B-Natriuretic Peptide (<100) pg/mL Total Protein (6.5-8.0) g/dL Albumin (3.5-5.0) g/dL Lipase (8-78) U/L Procalcitonin ng/mL TSH (0.32-4.0) uIU/mL Urine Color Urine Appearance Urine pH (5.0-9.0) Ur Specific [place] (1.005-1.025) Urine Protein (Neg-Trace) mg/dL Urine Glucose (UA) (Negative) mg/dL Urine Ketones (Negative) mg/dL Urine Blood (Negative) Urine Nitrite (Negative) Ur Leukocyte Esterase (Negative) Urine RBC (0-2) /HPF Urine WBC (0-5) /HPF Ur Squamous Epith Cells (0-2) /HPF Other Crystals Urine Bacteria (None Seen) Hyaline Casts (0-2) /LPF Influenza Type A (PCR) (Negative) Influenza Type B (PCR) (Negative) RSV RNA Qual (PCR) (Negative) SARS-CoV-2 RNA (RT-PCR) (Negative) Independent Interpretation I performed an independent interpretation of an: EKG and Plain X-Ray (no consolidation) Interpretation: Rate: 115 Rhythm: tachycardic irregular [place]: normal Normal QRS complex. ST T wave : sig artifact no DEVIN qTC: 484 prior studies: sig artifact irregular could be afib vs NSR with PACs The study has been interpreted contemporaneously by me. . Radiology Impression Discussion of test interpretation with radiology: I have reviewed the radiologist's reading. Independent Historian Clinical information obtained from an independent historian. History obtained from or confirmed by: EMS and Other (granddaughter) External Record Review External record reviewed: Inpatient record Critical Care Time Critical Care Time Critical Care Time: Yes Total Critical Care Time: 60 Attestation: review of records, hypoxia correction with high flow, repeat labs, sepsis protocol, admission I attest to this time spent taking care of the patient Discharge Plan Discharge Clinical Impression: Hypoxia, COPD exacerbation, Influenza A, Encephalopathy acute Patient Disposition: Admitted As Inpatient Interventions: Admission Worksheet (ED) Last Done: 09/28/23 15:36
[2023-09-28] MEDS: Albuterol Sulfate 5 MG, Albuterol/Iprat 2.5/0.5MG 3 ML 3 ML INHALE (11:06)
[2023-09-28] MEDS: 0.9 % Sodium Chloride 1,000 ML 999 ML IVCONT (11:19)
[2023-09-28] MEDS: Acetaminophen 325 MG TABLET 650 MG PO ×2 (11:28→20:07)
[2023-09-28] MEDS: methylPREDNISolone Sod Succ 125 MG/2 ML VIAL 60 MG IVPUSH (11:29)
[2023-09-28 11:30] LABS: Venous Blood Gas Refer to POC result
[2023-09-28 11:32] LABS: VBG HCO3 35 mmol/L (22-26); VBG pCO2 43 mmHg; VBG pH 7.51 (7.32-7.43); VBG pO2 73 mmHg
[2023-09-28 11:34] LABS: MANUAL DIFF FLAG NO
[2023-09-28 11:37] LABS: Appearance Urine Turbid; Color Urine Yellow; Glucose Urine UA Negative (Negative); Leukocyte Esterase Urine Large (3+) (Negative); Nitrite Urine Positive (Negative); PH 8.5 (5.0-9.0); UMIC TRIGGER UACC YES; Urine Blood Large (3+) (Negative); Urine Ketones Trace mg/dL (Negative); Urine Protein >=1000 (4+) mg/dL (Neg-Trace)
[2023-09-28 11:38] LABS: Basophils Percent Auto 0.2 % (0-2); Hematocrit 41.9 % (37.0-47.0); Hemoglobin 14.1 g/dl (12.0-16.0); Imm Gran Abs Auto 0.05 X10*3/uL (0.00-0.03); Imm Gran Pct Auto 0.4 % (0.0-0.4); Lymphocytes Absolute Auto 0.6 X10*3/uL (1.2-4.9); Lymphocytes Percent Auto 5.5 % (20-40); Mean Corpuscular HGB Conc 33.7 g/dl (31.0-35.0); Mean Corpuscular Hemoglobin 30.9 pg (27.0-33.0); Mean Corpuscular Volume 91.7 fL (80.0-98.0); Monocytes Absolute Auto 0.9 X10*3/uL (0.1-1.2); Monocytes Percent Auto 7.2 % (2-11); Neutrophils Absolute Auto 10.2 x10*3/uL (2.0-8.3); Neutrophils Percent Auto 86.7 % (45-73); Red Blood Count 4.57 X10*6/uL (4.20-5.50); Red Cell Distribution Width 12.2 % (11.0-16.0); White Blood Count 11.7 X10*3/uL (4.8-10.8)
[2023-09-28 11:44] LABS: Ammonia 32 umol/L (13-55)
[2023-09-28 11:47] LABS: Lactic Acid 1.6 mmol/L (0.5-2.0)
[2023-09-28 11:50] LABS: Bacteria Urine 4+ (None Seen); Hyaline Casts Urine >20 /LPF (0-2); Other Crystals Urine Present; RBC Urine >20 /HPF (0-2); UACC Culture Trigger YES; WBC Urine >50 /HPF (0-5)
[2023-09-28 11:56] LABS: B Type Natriuretic Peptide 58 pg/mL (<100); Troponin-I High Sensitivity 43.4 ng/L (<3.5-17.0)
[2023-09-28 11:57] LABS: Platelet Count 124 X10*3/uL (160-400)
[2023-09-28 11:58] LABS: Mean Platelet Volume 12.4 fL (9.4-12.3)
[2023-09-28 11:59] LABS: INTERNATIONAL NORM RATIO 0.9 (0.9-1.1); Prothrombin Time 11.1 SEC (11.1-13.3)
--- NOTE | 2023-09-28 12:00 | PC.NURSE ---
PT APPEARS LETHARGIC, DIFF BREATHING, CONFUSED - AND FACE IS FLUSHED. GRAND-DAUGHTER (EMMETT) IS AT BEDSIDE. PT HAS PROD COUGH/THICK YELLOW SPUTUM NOTED. PT/GRAND-DAUGHTER AWARE OF PLAN OF CARE. WILL CONTINUE TO MONITOR.
--- NOTE | 2023-09-28 12:00 | PC.NURSE ---
PT IS NOW ON HIGH FLOW OXYGEN AT 50% ON 40L BY RESP THERAPIST.
[2023-09-28] MEDS: cefTRIAXone sodium 1 GM in 0.9 % Sodium Chloride 50 ML IV (12:01)
[2023-09-28 12:02] LABS: Alanine Aminotransferase 19 U/L (0-31); Albumin Level 3.8 g/dL (3.5-5.0); Alkaline Phosphatase 90 U/L (39-117); Anion Gap 18 (12-20); Aspartate Amino Transferase 50 U/L (5-31); Bilirubin Direct 0.2 mg/dL (0.0-0.5); Bilirubin Total 0.4 mg/dL (0.0-1.0); Blood Urea Nitrogen 33 mg/dL (9-16); Calcium 9.2 mg/dL (8.4-10.2); Carbon Dioxide 29 mmol/L (22-29); Chloride 94 mmol/L (96-108); Creatinine Clr Calc Pharmacy 41.1; Estimated Glomerular Filt Rate 34; Glucose Random 149 mg/dL (60-115); Lipase 73 U/L (8-78); Magnesium 2.2 mg/dL (1.6-2.6); Potassium 3.7 mmol/L (3.3-5.1); Sodium 137 mmol/L (135-145); Total Protein 7.9 g/dL (6.5-8.0)
[2023-09-28 12:10] LABS: TSH reflex Free T4 1.63 uIU/mL (0.32-4.0)
[2023-09-28 12:23] LABS: Procalcitonin 0.16 ng/mL
[2023-09-28 12:29] LABS: Influenza A PCR POSITIVE (Negative); Influenza B PCR NEGATIVE (Negative); Resp Syncy Virus RNA Qual PCR NEGATIVE (Negative); SARS COV2 PCR INHOUSE NEGATIVE (Negative)
[2023-09-28] MEDS: Oseltamivir Phosphate 75 MG CAPSULE PO (13:40)
--- NOTE | 2023-09-28 14:10 | PC.NURSE ---
PT/GRAND-DAUGHTER (EMMETT) AWARE OF PLAN OF CARE FOR ADMISSION TO HOSP. PT APPEARS TO BE MORE ALERT AND IS RESTING AT THIS TIME.
--- NOTE | 2023-09-28 14:28 | P.HPHOSP_ITS ---
History of Present Illness Date of Service: 09/28/23 Attending physician on admission: Beto Brown Chief Complaint: SOB, hypoxia Pt is an 88-year-old female with a PMH significant for?COPD chronically on 3L home O2, HTN, HLD, HFpEF, paroxysmal AFib not on anticoagulation, hx of LA around 5 years ago, and hypothyroidism who presents to the ED from [facility]?for evaluation of increased lethargy, SOB, and difficulty breathing. Patient was also noted to be hypoxic on her chronic 3L NC. EMS was called and noted patient still hypoxic at 88% on 6 L. Pt was also complains of intermittent left- sided chest pain, butunable to further clarify any characteristics, just saying it felt like ?pain . Currently no longer complaining of chest pain or SOB. Continues to experience cough productive of yellow sputum and generalized weakness. Of note, pt normally lives at home but fell two weeks ago and placed in short term rehab for PT. Granddaughter at bedside reports pt is normally lively, animated, and AOx4. Does not carry any diagnosis of dementia or mental decline. In the ED pt was febrile up to 103.8, tachycardic up to 124, tachypneic up to 30, hypertensive up to 196/74, and desatting as low as 88% on 5 L NC. Labs were significant for testing positive for influenza a, leukocytosis 11.7, BUN 33, creatinine 1.45, AST 50, initial troponin 43.4 with repeat 65.0. VBG pH 7.51 with bicarb 35. UA positive for UTI. CXR showed emphysema but no acute intrathoracic disease. EKG demonstrated sinus tachycardia 115 with no evidence of significant ST elevations or depressions. Pt was treated with IVF, acetaminophen, Solu-Medrol, Tamiflu, and ceftriaxone. Pt will be admitted to the hospital for treatment further evaluation of acute encephalopathy in the setting of influenza infection and UTI with sepsis. Review of Systems 2 Review of Systems: Confusion, lethargy SOB, difficulty breathing Chest pain Productive cough [facility] Medical History (Updated 09/28/23 @ 15:37 by BANG Pelletier) Myocardial infarction Hypothyroidism Hyperlipidemia COPD (chronic obstructive pulmonary disease) HTN (hypertension) PAF (paroxysmal atrial fibrillation) Family History Father History of heart disease Mother History of heart disease Social History Household Members: None Housing: House Alcohol intake: never Patient Tobacco Use Status: Former Tobacco user Smoked in Last 30 Days: No Use of substances other than those prescribed or required for medical reasons: No Advance Directives: Yes Advance Directives on File: Yes Advance Directives Date on File: 05/10/21 Nutrition Risks: No Nutritional Risk service: No Current occupational status: retired Meds Allergies Allergy/AdvReac Type Severity Reaction Status Date / Time adhesive tape [Adhesive Tape] Allergy Unknown RASH Verified 12/20/22 16:50 codeine [Codeine] Allergy Unknown SWELLING Verified 12/20/22 16:50 Iodinated Contrast Media Allergy Unknown UNKNOWN Verified 12/20/22 16:50 [IV Dye, Iodine Containing] iodine [Iodine] Allergy Unknown UNKNOWN Verified 12/20/22 16:50 oxycodone [Percocet] Allergy Unknown unknown Verified 12/20/22 16:50 papaya [Papaya] Allergy Unknown HIVES Verified 12/20/22 16:50 pineapple [Pineapple] Allergy Unknown HIVES Verified 12/20/22 16:50 strawberry [[place]] Allergy Unknown HIVES Verified 12/20/22 16:50 Codeine Phosphate Allergy Unknown unknown Uncoded 11/30/20 15:34 Novocain Allergy Unknown unknown Uncoded 11/30/20 15:34 From Vicodin AdvReac Unknown NAUSEA & Uncoded 11/30/20 15:34 VOMITING Home Medications Medication Instructions Recorded Confirmed Last Taken Type furosemide 40 mg tablet 20 mg PO TID@0900,1300,2100 07/13/20 09/12/23 12/20/22 History gabapentin 300 mg capsule 300 mg PO BID Pain 07/13/20 09/12/23 12/20/22 History ipratropium bromide 17 2 puff inhalation QID PRN 07/13/20 09/12/23 12/20/22 History mcg/actuation HFA aerosol inhaler Shortness Of Breath levothyroxine 50 mcg tablet 50 mcg PO SUTUTHSA@0630 07/13/20 09/12/23 12/20/22 History magnesium oxide 400 mg (241.3 mg 400 mg PO BEDTIME 07/13/20 09/12/23 12/20/22 History magnesium) tablet simvastatin 10 mg tablet 10 mg PO DAILY 07/13/20 09/12/23 12/20/22 History levothyroxine 50 mcg tablet 75 mcg PO MOWEFR@0630 05/07/21 09/12/23 12/20/22 History aspirin 81 mg tablet,delayed 81 mg PO DAILY 12/21/22 09/12/23 12/20/22 History release famotidine 20 mg tablet 20 mg PO BID 12/21/22 09/12/23 12/20/22 History montelukast 10 mg tablet 10 mg PO BEDTIME 12/21/22 09/12/23 12/20/22 History multivitamin 1 tab PO DAILY 12/21/22 09/12/23 12/20/22 History amlodipine 5 mg tablet 5 mg PO BID 09/12/23 09/12/23 Unknown History naproxen sodium 220 mg tablet 220 mg PO Q8H PRN Pain 09/12/23 09/12/23 Unknown History (Anastacia) Physical Exam 2 Vital Signs and Narrative: Vital Signs: Last Vital Signs Temp 102.0 F H 09/28/23 12:29 Pulse 88 09/28/23 14:07 Resp 21 H 09/28/23 14:07 BP 152/55 H 09/28/23 14:07 Pulse Ox 95 09/28/23 14:07 O2 Del Method High Flow Nasal C annula 09/28/23 14:07 O2 Flow Rate 8 09/28/23 12:05 Oxygen Flow Rate 5 09/28/23 11:11 BMI result Body Mass Index 53.3 Constitutional: Alert, somnolent but arousable. In no acute distress. Mental Status: Oriented to person and partly to place, not to time or situation. Eyes: Pupils are equal, round, and reactive to light. Ear, Nose, and Throat: Oropharynx clear, mucous membranes dry. Ears and nose without deformities. Trachea midline. Respiratory: Diffuse expiratory rhonchi bilaterally. Cardiovascular: S1, S2, tachy. Gastrointestinal: Abdomen soft, non-tender, non-distended. Normal bowel sounds. Neurologic: Cranial nerves II-XII are grossly intact bilaterally. No focal neurological deficits. Moves all extremities spontaneously. Skin: Warm, dry. Musculoskeletal: No cyanosis or clubbing. Extremities: No edema. Results Labs 09/28/23 11:20 09/28/23 11:20 Labs: Laboratory Results - last 24 hr 09/28/23 09/28/23 09/28/23 11:20 11:21 11:26 MCV 91.7 MCH 30.9 MCHC 33.7 RDW 12.2 Plt Count 124 L D MPV 12.4 H Immature Gran % (Auto) 0.4 Neut % (Auto) 86.7 H Lymph % (Auto) 5.5 L [place] % (Auto) 7.2 Eos % (Auto) 0.0 Baso % (Auto) 0.2 Lymph # (Auto) 0.6 L [place] # (Auto) 0.9 Eos # (Auto) 0.0 Baso # (Auto) 0.0 Abs Immat Gran (auto) 0.05 H Absolute Neuts (auto) 10.2 H Absolute Nucleated RBC 0.000 Nucleated RBC % (auto) 0.0 PT 11.1 INR 0.9 VBG pH 7.51 H VBG pCO2 43 VBG pO2 73 VBG HCO3 35 H VBG O2 Saturation 94.0 VBG Base Excess 11.0 Anion Gap 18 Estim Creat Clear Calc 41.1 Estimated GFR 34 Random Glucose 149 H Lactic Acid 1.6 Calcium 9.2 D Magnesium 2.2 Total Bilirubin 0.4 Direct Bilirubin 0.2 AST 50 H ALT 19 Alkaline Phosphatase 90 Ammonia 32 Troponin I High Sens 43.4 H D B-Natriuretic Peptide 58 Total Protein 7.9 Albumin 3.8 Lipase 73 Procalcitonin 0.16 TSH 1.63 Urine Color Yellow Urine Appearance Turbid Urine pH 8.5 Ur Specific [place] 1.020 Urine Protein >=1000 (4+) H Urine Glucose (UA) Negative Urine Ketones Trace Urine Blood Large (3+) H Urine Nitrite Positive H Ur Leukocyte Esterase Large (3+) H Urine RBC >20 H Urine WBC >50 H Ur Squamous Epith Cells 3-5 Other Crystals Present Urine Bacteria 4+ Hyaline Casts >20 Influenza Type A (PCR) POSITIVE A Influenza Type B (PCR) NEGATIVE RSV RNA Qual (PCR) NEGATIVE SARS-CoV-2 RNA (RT-PCR) NEGATIVE 09/28/23 13:49 MCV MCH MCHC RDW Plt Count MPV Immature Gran % (Auto) Neut % (Auto) Lymph % (Auto) [place] % (Auto) Eos % (Auto) Baso % (Auto) Lymph # (Auto) [place] # (Auto) Eos # (Auto) Baso # (Auto) Abs Immat Gran (auto) Absolute Neuts (auto) Absolute Nucleated RBC Nucleated RBC % (auto) PT INR VBG pH VBG pCO2 VBG pO2 VBG HCO3 VBG O2 Saturation VBG Base Excess Anion Gap Estim Creat Clear Calc Estimated GFR Random Glucose Lactic Acid Calcium Magnesium Total Bilirubin Direct Bilirubin AST ALT Alkaline Phosphatase Ammonia Troponin I High Sens 65.0 H* B-Natriuretic Peptide Total Protein Albumin Lipase Procalcitonin TSH Urine Color Urine Appearance Urine pH Ur Specific [place] Urine Protein Urine Glucose (UA) Urine Ketones Urine Blood Urine Nitrite Ur Leukocyte Esterase Urine RBC Urine WBC Ur Squamous Epith Cells Other Crystals Urine Bacteria Hyaline Casts Influenza Type A (PCR) Influenza Type B (PCR) RSV RNA Qual (PCR) SARS-CoV-2 RNA (RT-PCR) Imaging Radiologist's Impressions: Impressions Chest X-Ray 09/28/23 10:54 IMPRESSION: No acute intrathoracic disease. Emphysema. Assessment and Plan (1) Encephalopathy acute: Status: Acute (2) Influenza A: Status: Acute (3) COPD exacerbation: Status: Acute (4) UTI (urinary tract infection): Status: Acute Plan Pt is an 88-year-old female with a PMH significant for?COPD chronically on 3L home O2, HTN, HLD, HFpEF, paroxysmal AFib not on anticoagulation, hx of LA around 5 years ago, and hypothyroidism who presents to the ED from [facility]?for evaluation of increased lethargy, SOB, and difficulty breathing. Pt will be admitted to the hospital for treatment further evaluation of acute encephalopathy in the setting of influenza infection and UTI with sepsis. Acute on chronic hypoxic respiratory failure in the setting of influenza infection and COPD exacerbation Patient hypoxic in upper 80s despite increasing home O2; currently on high-flow in the ED Treat with Tamiflu, guaifenesin DuoNebs, Solu-Medrol Monitor respiratory status UTI with sepsis Pt meets sepsis criteria: Fever, tachycardia, tachypnea; lactic acid WNL at 1.6 Patient given IVF and started on broad-spectrum antibiotics in the ED Will treat with ceftriaxone, started 09/28/[address] on maintenance fluids Acute encephalopathy Patient confused, AAO x2, lethargic times 1-2 days In the setting of above Treat as above Monitor mentation Full Code Attending:?Dr. Brown DVT Prophylaxis: Lovenox Pt will require a hospitalization of at least two nights for treatment of acute on chronic hypoxic respiratory failure and acute encephalopathy in the setting of influenza infection and UTI with sepsis. Given patient's advanced age and significant comorbidities including history of CAD/LA and COPD, patient is at risk of further decline and in need of hospitalization for administration of IV antibiotics, IV steroids, breathing treatments, and close monitoring of respiratory status and mentation. Quality Stroke Does the patient have a stroke diagnosis?: No VTE Prior VTE?: No VTE Risk Level:: Medical - moderate - high VTE Device Contraindication: Treatment Not Indicated VTE Drug Contraindication: N/A - Med Ordered
--- NOTE | 2023-09-28 15:15 | PC.NURSE ---
Assumed care of patient at 1445, patient upon first encounter patient appears to be sleeping, respirations even and mildly labored. Pt is on 40L and 50 % high flow nasal cannula. Patient appears to be tolerating it well with O2 sats in the high 90s. Granddaughter at the bedside providing information to this RN. Patient is NSR on the monitor in the 70s, blood pressure elevated however, patient did not take her AM medications. Per granddaughter, patient lives independently with minimal help, ambulates without an assistive device. No apparent distress noted at this time. Continue plan of care for admission to medical floor
[2023-09-28] MEDS: Albuterol/Iprat 2.5/0.5MG 3 ML AMPUL.NEB INHALE ×2 (16:22→19:32)
--- NOTE | 2023-09-28 16:25 | PHA.MEDREC ---
Pharmacy Consult ? Medication Reconciliation Pharmacy has completed the medication reconciliation. Patient from [facility] with med list. Shana Steward, MendyD
[2023-09-28] MEDS: 0.9 % Sodium Chloride Flush 3 ML SYRINGE IVFLUSH ×2 (17:04→21:18)
[2023-09-28] MEDS: Enoxaparin Sodium 40 MG/0.4 ML SYRINGE SUBCUT (17:24)
--- NOTE | 2023-09-28 17:47 | PC.NURSE ---
Pt medicated per MAR, continues to rest on stretcher, no apparent distress noted. Continuing high flow nasal cannula at 40L 50%, satting in high 90s still. Pt woke up briefly, able to answer most questions logically. Continue plan of care for admission to floor
--- NOTE | 2023-09-28 18:40 | PC.NURSE ---
Pt used call peters, requesting warm blanket. Pt provided with blanket and showed how to change channel on TV remote, no apparent distress at this time. Coninues to sat well on high flow
--- NOTE | 2023-09-28 19:25 | PC.NURSE ---
pt reporting 04/18 R. leg/hip pain. Tashi CUENCA aware. report given to Lynn CANALES RN. awaiting transport to floor.
[2023-09-28] MEDS: Ketorolac Tromethamine 15 MG/ML VIAL IVPUSH (20:06)
--- NOTE | 2023-09-28 20:07 | PC.NURSE ---
pt medicatd per sep for pain. pt also requested prn tylenol for pain. pt tolerated well po with water.
[2023-09-28] MEDS: methylPREDNISolone Sod Succ 40 MG/ML VIAL IVPUSH (21:18)
[2023-09-28] MEDS: Oseltamivir Phosphate 30 MG CAPSULE PO (21:18)
[2023-09-28 21:38] LABS: Troponin-I High Sensitivity 65.4 ng/L (<3.5-17.0)
[2023-09-28] MEDS: guaiFENesin DM 200/20/10 ML 10 ML SYRUP PO (22:12)
--- NOTE | 2023-09-28 23:40 | PC.NURSE ---
Patient noted to be in atrial bigeminy at this time, asymptomatic, patient watching TV. Dr. Lozano aware. EKG ordered. Out of bigeminal rhythm at 0129 on 09/28.
[2023-09-29] VITALS (10 sets, daily range): BP systolic 133–167; BP diastolic 64–92; PULSE 45–85; RESP 17–20; TEMP 36.1–36.3; O2SAT 91–95; BMI 24.3
[2023-09-29] MEDS: Acetaminophen 325 MG TABLET 650 MG PO ×2 (02:59→21:13)
[2023-09-29] MEDS: Melatonin 3 MG TABLET 6 MG PO ×2 (02:59→21:14)
[2023-09-29] MEDS: guaiFENesin DM 200/20/10 ML 10 ML SYRUP PO ×2 (02:59→21:12)
[2023-09-29 07:38] LABS: Anion Gap 16 (12-20); Blood Urea Nitrogen 40 mg/dL (9-16); Calcium 8.7 mg/dL (8.4-10.2); Carbon Dioxide 30 mmol/L (22-29); Chloride 95 mmol/L (96-108); Creatinine Clr Calc Pharmacy 18.3; Estimated Glomerular Filt Rate 23; Glucose Random 152 mg/dL (60-115); Potassium 3.4 mmol/L (3.3-5.1); Sodium 138 mmol/L (135-145)
[2023-09-29] MEDS: Albuterol/Iprat 2.5/0.5MG 3 ML AMPUL.NEB INHALE ×4 (08:27→19:39)
[2023-09-29] MEDS: Aspirin Enteric Coated 81 MG TABLET.DR PO (09:15)
[2023-09-29] MEDS: Oseltamivir Phosphate 30 MG CAPSULE PO ×2 (09:15→21:15)
[2023-09-29] MEDS: Multivitamin TABLET 1 TAB PO (09:15)
[2023-09-29] MEDS: Gabapentin 300 MG CAPSULE PO ×2 (09:15→21:09)
[2023-09-29] MEDS: methylPREDNISolone Sod Succ 40 MG/ML VIAL IVPUSH ×2 (09:15→21:12)
[2023-09-29] MEDS: 0.9 % Sodium Chloride Flush 3 ML SYRINGE IVFLUSH (09:15)
--- NOTE | 2023-09-29 10:15 | HO.WOUND ---
Wound Consult: Initial 88yr old?F admitted to [facility] on 09/28/23 - See progress notes and H&P for detailed history.? Wound consult placed for Buttock and BLE POA.? Patient Mildly agreeable to assessment and photo documentation.? She became verbal with threats to this speech writer if she was touched - she was redirectable and ultimately agreed to assessment to the buttock and heels - she refused assessment under the arpan wraps to both knees. Direct care nurse will attempt at future time. Sacrum Etiology: Deep Tissue Injury -??Present on Admission Wound Bed: Maroon red intact nonblanchable tissue over bony sacral area Drainage / Odor: None Edges: ? Irregular Jeimy wound: REd pink tissue blanchable - ? No Induration, Fluctuance or Warmth noted - Mild redness noted to perineal area - MASD noted (Patient incontinent of urine and stool) Pain: pain reported with palpation Goals of Treatment: ? Foam sacral dressing to aid in off loading pressure - protect from friction and moisture - Discontinue Purewick as patient has loose stools Left Heel Right Heel Bilateral Heels assessed intact red blanchable tissue - tender to touch - off loaded on pillows may apply preventative foam dressings Left Ortiz noted for stable scab - dry thin tissue - no topical interventions needed will benefit from regular moisturizing Bilateral knees not assessed under Arpan wraps - pt refused and became agitated and threatening when requesting to remove arpan wraps for skin assessment - bilateral knees not assessed - Direct care nurse will remove and assess when patient is more agreeable and reconsult inpt wound care nurse if needed. Recommendations: 1. Turn and Reposition every 2 hours and as needed for patient comfort.? Use pillows or wedges to support off loading positions. 2. Off Load all bony prominences with use of pillows and heel boots if needed.? Apply Preventative foams where needed. ? 3. Monitor for incontinence and moisture control, use barrier creams when needed for prevention and treatment. 4. Provide adequate and supplemental nutrition.? 5. Order or Continue low air loss mattress. 6. Bilateral Heels - Apply Foam dressings - peel back and assess Q shift change every 3 days and PRN. Off Load Pressure with pillows. 7. Perineal and Buttock - Cleanse with PH balance spray or wipes, pat dry. ?Apply thin layer of barrier cream to area to prevent skin breakdown. Reapply thin layer PRN after each episode of incontinence. Discontinue Purewick use while patient is incontinent of liquid stool as this will cause increased risk of infection. 8. Sacrum - Apply Sacral foam dressing peel back and assess Q shift change every 3 days and PRN. Off Load Pressure with turning and repositioning with use of pillows. Re-consult wound care Nurse for wound deterioration or wound changes.
[2023-09-29] MEDS: cefTRIAXone sodium 1 GM in 0.9 % Sodium Chloride 50 ML IV (10:40)
--- NOTE | 2023-09-29 11:43 | HO.PM.IMPN ---
Subjective Subjective Date of Service: 09/29/23 Interval History: Being followed for acute on chronic hypoxic respiratory failure in the setting of influenza infection and COPD exacerbation and acute encephalopathy likely due to UTI with sepsis. Patient awake alert answering questions appropriately, feels better complaining of cough, and shortness of breath, feels tired, denies fever, no chills, no acute events overnight. No nausea, no vomiting, no abdominal pain. Review of Systems All other system reviewed and negative. Physical Exam Vital Signs: Vital Signs: Last Vital Signs Temp 97.4 F 09/29/23 11:04 Pulse 80 09/29/23 11:04 Resp 17 09/29/23 11:04 BP 150/70 H 09/29/23 11:04 Pulse Ox 95 09/29/23 11:04 O2 Del Method Nasal Cannula 09/29/23 11:04 O2 Flow Rate 3 09/29/23 11:04 Oxygen Flow Rate 5 09/28/23 11:11 BMI result Body Mass Index 24.3 Const: Other: General awake alert x3,resting comfortably in no acute distress. anicteric sclera Neck supple no JVD. CVS regular rate rhythm, no murmurs Respiratory lungs coarse breath sounds, diminished at bases Gastrointestinal abdomen soft, non tender, bowel sounds audible, no guarding , no rigidity. Extremities no edema/danish wrap on both knees Neuro non focal , moving all 4 extremity speech clear. skin no rash psych appropriate affect. Objective Data Active Medications Acetaminophen (Acetaminophen 325 Mg Tablet) 650 mg PO Q6H PRN PRN Reason: Pain, Mild (Pain Scale 1-3) Last Admin: 09/29/23 02:59 Dose: 650 mg Documented By: KENNEY Albuterol/Ipratropium (Albuterol/Iprat 2.5/0.5mg 3 Ml Ampul.Neb) 3 ml INHALE RQ4H WHILE AWAKE [facility] Last Admin: 09/29/23 08:27 Dose: 3 ml Documented By: KALI Aspirin (Aspirin Enteric Coated 81 Mg Tablet.) 81 mg PO DAILY [facility] Last Admin: 09/29/23 09:15 Dose: 81 mg Documented By: MIHAI Docusate Sodium (Docusate Sodium 100 Mg Capsule) 100 mg PO DAILY PRN PRN Reason: Constipation Enoxaparin Sodium (Enoxaparin Sodium 40 Mg/0.4 Ml Syringe) 40 mg SUBCUT Q24H [facility] Last Admin: 09/28/23 17:24 Dose: 40 mg Documented By: NGA Gabapentin (Gabapentin 300 Mg Capsule) 300 mg PO BID [facility] Last Admin: 09/29/23 09:15 Dose: 300 mg Documented By: MIHAI Guaifenesin/Dextromethorphan (Guaifenesin Dm 200/20/10 Ml 10 Ml Syrup) 10 ml PO Q4H PRN PRN Reason: Cough Last Admin: 09/29/23 02:59 Dose: 10 ml Documented By: KENNEY Ceftriaxone Sodium 1 gm/ (Sodium Chloride) 50 mls @ 100 mls/hr IV Q24H [facility] Last Admin: 09/29/23 10:40 Dose: 100 mls/hr Documented By: MIHAI Levothyroxine Sodium (Levothyroxine Sodium 50 Mcg Tablet) 50 mcg PO SUTUTHSA@0630 [facility] Levothyroxine Sodium (Levothyroxine Sodium 75 Mcg Tablet) 75 mcg PO MOWEFR@0630 [facility] Magnesium Oxide (Magnesium Oxide 400 Mg Tablet) 400 mg PO BEDTIME [facility] Melatonin (Melatonin 3 Mg Tablet) 6 mg PO BEDTIME PRN PRN Reason: Insomnia Last Admin: 09/29/23 02:59 Dose: 6 mg Documented By: KENNEY Methylprednisolone Sodium Succinate (Methylprednisolone Sod Succ 40 Mg/Ml Vial) 40 mg IVPUSH Q12H [facility] Last Admin: 09/29/23 09:15 Dose: 40 mg Documented By: MIHAI Montelukast Sodium (Montelukast Sodium 10 Mg Tablet) 10 mg PO BEDTIME [facility] Multivitamins/Vitamin C (Multivitamin Tablet) 1 tab PO DAILY [facility] Last Admin: 09/29/23 09:15 Dose: 1 tab Documented By: MIHAI Ondansetron HCl (Ondansetron Hcl 4 Mg/2 Ml Vial) 4 mg IVPUSH Q8H PRN PRN Reason: Nausea and Vomiting Oseltamivir Phosphate (Oseltamivir Phosphate 30 Mg Capsule) 30 mg PO Q12H [facility] Stop: 10/02/23 23:01 Last Admin: 09/29/23 09:15 Dose: 30 mg Documented By: MIHAI Sodium Chloride (0.9 % Sodium Chloride Flush 3 Ml Syringe) 3 ml IVFLUSH QSHIFT [facility] Last Admin: 09/29/23 09:15 Dose: 3 ml Documented By: MIHAI Labs 09/28/23 11:20 09/29/23 06:50 Labs: Laboratory Results - last 24 hr 09/28/23 09/28/23 09/28/23 11:20 11:21 13:49 MCV 91.7 MCH 30.9 MCHC 33.7 RDW 12.2 Plt Count 124 L D MPV 12.4 H Immature Gran % (Auto) 0.4 Neut % (Auto) 86.7 H Lymph % (Auto) 5.5 L [place] % (Auto) 7.2 Eos % (Auto) 0.0 Baso % (Auto) 0.2 Lymph # (Auto) 0.6 L [place] # (Auto) 0.9 Eos # (Auto) 0.0 Baso # (Auto) 0.0 Abs Immat Gran (auto) 0.05 H Absolute Neuts (auto) 10.2 H Absolute Nucleated RBC 0.000 Nucleated RBC % (auto) 0.0 PT 11.1 INR 0.9 Anion Gap 18 Estim Creat Clear Calc 41.1 Estimated GFR 34 Random Glucose 149 H Lactic Acid 1.6 Calcium 9.2 D Magnesium 2.2 Total Bilirubin 0.4 Direct Bilirubin 0.2 AST 50 H ALT 19 Alkaline Phosphatase 90 Ammonia 32 Troponin I High Sens 43.4 H D 65.0 H* B-Natriuretic Peptide 58 Total Protein 7.9 Albumin 3.8 Lipase 73 Procalcitonin 0.16 TSH 1.63 Urine Color Yellow Urine Appearance Turbid Urine pH 8.5 Ur Specific [place] 1.020 Urine Protein >=1000 (4+) H Urine Glucose (UA) Negative Urine Ketones Trace Urine Blood Large (3+) H Urine Nitrite Positive H Ur Leukocyte Esterase Large (3+) H Urine RBC >20 H Urine WBC >50 H Ur Squamous Epith Cells 3-5 Other Crystals Present Urine Bacteria 4+ Hyaline Casts >20 Influenza Type A (PCR) POSITIVE A Influenza Type B (PCR) NEGATIVE RSV RNA Qual (PCR) NEGATIVE SARS-CoV-2 RNA (RT-PCR) NEGATIVE 09/28/23 09/29/23 20:56 06:50 MCV MCH MCHC RDW Plt Count MPV Immature Gran % (Auto) Neut % (Auto) Lymph % (Auto) [place] % (Auto) Eos % (Auto) Baso % (Auto) Lymph # (Auto) [place] # (Auto) Eos # (Auto) Baso # (Auto) Abs Immat Gran (auto) Absolute Neuts (auto) Absolute Nucleated RBC Nucleated RBC % (auto) PT INR Anion Gap 16 Estim Creat Clear Calc 18.3 Estimated GFR 23 Random Glucose 152 H Lactic Acid Calcium 8.7 Magnesium Total Bilirubin Direct Bilirubin AST ALT Alkaline Phosphatase Ammonia Troponin I High Sens 65.4 H* B-Natriuretic Peptide Total Protein Albumin Lipase Procalcitonin TSH Urine Color Urine Appearance Urine pH Ur Specific [place] Urine Protein Urine Glucose (UA) Urine Ketones Urine Blood Urine Nitrite Ur Leukocyte Esterase Urine RBC Urine WBC Ur Squamous Epith Cells Other Crystals Urine Bacteria Hyaline Casts Influenza Type A (PCR) Influenza Type B (PCR) RSV RNA Qual (PCR) SARS-CoV-2 RNA (RT-PCR) Assessment and Plan (1) UTI (urinary tract infection): Status: Acute (2) Encephalopathy acute: Status: Acute (3) Influenza A: Status: Acute (4) COPD exacerbation: Status: Acute (5) RONAK (acute kidney injury): Status: Acute Plan 88-year-old female with a PMH significant for?COPD chronically on 3L home O2, HTN, HLD, HFpEF, paroxysmal AFib not on anticoagulation, hx of [place] around 5 years ago, and hypothyroidism who presents to the ED from [facility]?for evaluation of increased lethargy, SOB, and difficulty breathing. Pt will be admitted to the hospital for treatment further evaluation of acute encephalopathy in the setting of influenza infection and UTI with sepsis. Acute on chronic hypoxic respiratory failure in the setting of influenza A infection and COPD exacerbation Feeling better, high-flow discontinued patient now on nasal cannula oxygenation 95% on Tamiflu D2/, continue DuoNeb, IV Solu-Medrol and guaifenesin Continue Singulair UTI with sepsis All features of sepsis resolved, no recurrent fevers, no tachypnea or tachycardia,lactic acid WNL at 1.6 Continue IV ceftriaxone, started 09/28/2023 Follow urine and blood cultures currently pending. RONAK Creatinine bumped from 1.45-2.03 , will hold nephrotoxins avoid hypotension. Obtained Nephro consult, case discussed with Dr. Victor he recommend IV fluid 500 mL , likely ATN follow BMP. Acute encephalopathy Resolved was likely due to hypoxia and UTI. Hypothyroidism continue Synthroid. Full Code DVT Prophylaxis: Lovenox Pt will require continued inpatient hospitalization for treatment of acute on chronic hypoxic respiratory failure in the setting of influenza infection and UTI with sepsis. Given patient's advanced age and significant comorbidities including history of CAD/[place] and COPD, patient is at risk of further decline and in need of hospitalization for administration of IV antibiotics, IV steroids, breathing treatments, and close respiratory monitoring. Quality Stroke Does the patient have a stroke diagnosis?: No VTE Prior VTE?: No VTE Risk Level:: Medical - moderate - high VTE Device Contraindication: Treatment Not Indicated VTE Drug Contraindication: N/A - Med Ordered
--- NOTE | 2023-09-29 11:55 | MHC.CLN ---
RE: CONSULT PT WITH INCREASED NUTRITION RISK R/T PRESSURE INJURY PT REPORTED 20# WT LOSS, HOWEVER REVIEW OF WT HX REVEALS MANY FLUCTUATIONS PT REMAINS OVER WT FOR HT AT THIS TIME; BMI 24.3 DIET RX: CARDIAC-APPROPRIATE RECOMMEND ADDING ENSURE BID TO PROMOTE WOUND HEALING SUPPLEMENT TO PROVIDE 700KCALS, 40G PROTEIN MONITOR PO INTAKE AND ENCOURAGE SUPPLEMENT SEE ALSO FULL CLINICAL NUTRITION ASSESSMENT
--- NOTE | 2023-09-29 13:03 | P.CONNP_ITS ---
History of Present Illness Reason for Consult Consult date: 09/29/23 Reason for consult: RONAK Chief Complaint Chief complaint: Flu+, hypoxia, UTI History of Present Illness Narrative: 88-year-old female with ?COPD chronically on 3L home O2, HTN, hx of [place] around 5 years ago who presented to the ER from [facility]?for evaluation of increased lethargy, SOB, and difficulty breathing. Patient was also noted to be hypoxic on her chronic 3L NC. EMS was called and noted patient still hypoxic at 88% on 6 L. Pt also complained of intermittent left-sided chest pain. She has cough productive of yellow sputum and generalized weakness. She normally lives at home but fell two weeks ago and placed in short term rehab for PT. Does not carry any diagnosis of dementia or mental decline. In the ED pt was febrile up to 103.8, tachycardic up to 124, tachypneic up to 30, hypertensive up to 196/74, and desatting as low as 88% on 5 L NC. Labs were significant for testing positive for influenza a, leukocytosis 11.7, BUN 33, creatinine 1.45, AST 50, initial troponin 43.4 with repeat 65.0. VBG pH 7.51 with bicarb 35. UA positive for UTI. CXR showed emphysema but no acute intrathoracic disease. EKG demonstrated sinus tachycardia 115 with no evidence of significant ST elevations or depressions. Pt was treated with IVF, acetaminophen, Solu-Medrol, Tamiflu, and ceftriaxone. Pt will be admitted to the hospital for treatment further evaluation of acute encephalopathy in the setting of influenza infection and UTI with sepsis. Her serum creatinine has gone up. Nephrology has been consulted to assist in the clinical management during her current hospital stay. Review of Systems Review of Systems Yes all other systems are reviewed and are negative [facility] Past Medical History Medical History (Updated 09/28/23 @ 15:37 by BANG Pelletier) Myocardial infarction Hypothyroidism Hyperlipidemia COPD (chronic obstructive pulmonary disease) HTN (hypertension) PAF (paroxysmal atrial fibrillation) Family History Family History Father History of heart disease Mother History of heart disease Social History Social History Household Members: None Housing: Assisted Do you presently have visiting nurse or other home services: Yes Alcohol intake: never Patient Tobacco Use Status: Former Tobacco user Smoked in Last 30 Days: No Use of substances other than those prescribed or required for medical reasons: No Currently Displaying Signs/Symptoms of Drug Intoxication Withdrawal: No Have you been hit, kicked, punched, or otherwise hurt by someone within the past year? If so, by whom?: No Do you feel safe in your current relationship?: No Current Relationship Is there a partner from a previous relationship who is making you feel unsafe now?: No Are you made to feel afraid or neglected: No Advance Directives: Yes Advance Directives on File: Yes Advance Directives Date on File: 05/10/21 Do you have thoughts of harming others: None Do you have a plan to hurt others: No Plan Recently lost weight without trying: Yes How much weight loss: 34pounds or more Eating poorly because of decreased appetite: Yes Nutrition screen score: 7 Nutrition Risks: No Nutritional Risk Patient : No service: No Current occupational status: retired Meds Allergies Allergy/AdvReac Type Severity Reaction Status Date / Time adhesive tape [Adhesive Tape] Allergy Unknown RASH Verified 12/20/22 16:50 codeine [Codeine] Allergy Unknown SWELLING Verified 12/20/22 16:50 Iodinated Contrast Media Allergy Unknown UNKNOWN Verified 12/20/22 16:50 [IV Dye, Iodine Containing] iodine [Iodine] Allergy Unknown UNKNOWN Verified 12/20/22 16:50 oxycodone [Percocet] Allergy Unknown unknown Verified 12/20/22 16:50 papaya [Papaya] Allergy Unknown HIVES Verified 12/20/22 16:50 pineapple [Pineapple] Allergy Unknown HIVES Verified 12/20/22 16:50 strawberry [Refugio] Allergy Unknown HIVES Verified 12/20/22 16:50 Codeine Phosphate Allergy Unknown unknown Uncoded 11/30/20 15:34 Novocain Allergy Unknown unknown Uncoded 11/30/20 15:34 From Vicodin AdvReac Unknown NAUSEA & Uncoded 11/30/20 15:34 VOMITING Active Medications: Current Medications Acetaminophen (Acetaminophen 325 Mg Tablet) 650 mg PO Q6H PRN PRN Reason: Pain, Mild (Pain Scale 1-3) Last Admin: 09/29/23 02:59 Dose: 650 mg Albuterol/Ipratropium (Albuterol/Iprat 2.5/0.5mg 3 Ml Ampul.Neb) 3 ml INHALE RQ4H WHILE AWAKE [facility] Last Admin: 09/29/23 12:31 Dose: 3 ml Aspirin (Aspirin Enteric Coated 81 Mg Tablet.Dr) 81 mg PO DAILY [facility] Last Admin: 09/29/23 09:15 Dose: 81 mg Docusate Sodium (Docusate Sodium 100 Mg Capsule) 100 mg PO DAILY PRN PRN Reason: Constipation Enoxaparin Sodium (Enoxaparin Sodium 40 Mg/0.4 Ml Syringe) 40 mg SUBCUT Q24H [facility] Last Admin: 09/28/23 17:24 Dose: 40 mg Gabapentin (Gabapentin 300 Mg Capsule) 300 mg PO BID [facility] Last Admin: 09/29/23 09:15 Dose: 300 mg Guaifenesin/Dextromethorphan (Guaifenesin Dm 200/20/10 Ml 10 Ml Syrup) 10 ml PO Q4H PRN PRN Reason: Cough Last Admin: 09/29/23 02:59 Dose: 10 ml Ceftriaxone Sodium 1 gm/ (Sodium Chloride) 50 mls @ 100 mls/hr IV Q24H [facility] Last Infusion: 09/29/23 11:59 Dose: Infused Sodium Chloride (Sodium Chloride 0.45 %) 1,000 mls @ 100 mls/hr IVCONT .Q10H [facility] Stop: 09/29/23 17:14 Levothyroxine Sodium (Levothyroxine Sodium 50 Mcg Tablet) 50 mcg PO SUTUTHSA@0630 [facility] Levothyroxine Sodium (Levothyroxine Sodium 75 Mcg Tablet) 75 mcg PO MOWEFR@0630 [facility] Magnesium Oxide (Magnesium Oxide 400 Mg Tablet) 400 mg PO BEDTIME [facility] Melatonin (Melatonin 3 Mg Tablet) 6 mg PO BEDTIME PRN PRN Reason: Insomnia Last Admin: 09/29/23 02:59 Dose: 6 mg Methylprednisolone Sodium Succinate (Methylprednisolone Sod Succ 40 Mg/Ml Vial) 40 mg IVPUSH Q12H [facility] Last Admin: 09/29/23 09:15 Dose: 40 mg Montelukast Sodium (Montelukast Sodium 10 Mg Tablet) 10 mg PO BEDTIME [facility] Multivitamins/Vitamin C (Multivitamin Tablet) 1 tab PO DAILY [facility] Last Admin: 09/29/23 09:15 Dose: 1 tab Ondansetron HCl (Ondansetron Hcl 4 Mg/2 Ml Vial) 4 mg IVPUSH Q8H PRN PRN Reason: Nausea and Vomiting Oseltamivir Phosphate (Oseltamivir Phosphate 30 Mg Capsule) 30 mg PO Q12H [facility] Stop: 10/02/23 23:01 Last Admin: 09/29/23 09:15 Dose: 30 mg Sodium Chloride (0.9 % Sodium Chloride Flush 3 Ml Syringe) 3 ml IVFLUSH QSHIFT [facility] Last Admin: 09/29/23 09:15 Dose: 3 ml Home Medications Medication Instructions Recorded Confirmed Last Taken Type gabapentin 300 mg capsule 300 mg PO BID Pain 07/13/20 09/28/23 12/20/22 History ipratropium bromide 17 2 puff inhalation QID PRN 07/13/20 09/28/23 12/20/22 History mcg/actuation HFA aerosol inhaler Shortness Of Breath levothyroxine 50 mcg tablet 50 mcg PO SUTUTHSA@0630 07/13/20 09/28/23 12/20/22 History magnesium oxide 400 mg (241.3 mg 400 mg PO BEDTIME 07/13/20 09/28/23 12/20/22 History magnesium) tablet simvastatin 10 mg tablet 10 mg PO DAILY 07/13/20 09/28/23 12/20/22 History levothyroxine 50 mcg tablet 75 mcg PO MOWEFR@0630 05/07/21 09/28/23 12/20/22 History aspirin 81 mg tablet,delayed 81 mg PO DAILY 12/21/22 09/28/23 12/20/22 History release famotidine 20 mg tablet 20 mg PO BID 12/21/22 09/28/23 12/20/22 History montelukast 10 mg tablet 10 mg PO BEDTIME 12/21/22 09/28/23 12/20/22 History multivitamin 1 tab PO DAILY 12/21/22 09/28/23 12/20/22 History amlodipine 5 mg tablet 5 mg PO BID 09/12/23 09/28/23 Unknown History furosemide 20 mg tablet 60 mg PO DAILY 09/28/23 09/28/23 Unknown History Physical Exam Vital Signs: Last Vital Signs Temp 97.4 F 09/29/23 11:04 Pulse 71 09/29/23 12:33 Resp 18 09/29/23 12:33 BP 150/70 H 09/29/23 11:04 Pulse Ox 95 09/29/23 11:04 O2 Del Method Nasal Cannula 09/29/23 11:04 O2 Flow Rate 3 09/29/23 11:04 Oxygen Flow Rate 5 09/28/23 11:11 BMI result Body Mass Index 24.3 Const General: comfortable and no acute distress HEENT Head: Yes normocephalic Mouth: Normal oral and palatal mucosa present Eyes EOM: EOMs intact bilaterally Neck Neck: Yes supple Resp Auscultation: diminished lung sounds Cardio Jugular venous distension: no JVD Rate: regular rate GI Palpation (GI): Soft to palpation Auscultation: normal bowel sounds General: Yes no CVA tenderness Back/Spine/Pelvis Back: no CVA tenderness Skin General skin exam: no rashes or lesions noted Neuro General: moves all extremities Extrem General: Yes no pedal edema Results Lab Results 09/28/23 11:20 09/29/23 06:50 Lab results: Chemistry 09/28/23 09/29/23 11:20 06:50 Sodium 137 138 Potassium 3.7 3.4 Carbon Dioxide 29 30 H BUN 33 H 40 H Creatinine 1.45 H 2.03 H Calcium 9.2 D 8.7 Hematology 09/28/23 11:20 WBC 11.7 H Hgb 14.1 Plt Count 124 L D Urinalysis 09/28/23 11:21 Urine Color Yellow Urine Appearance Turbid Urine pH 8.5 Ur Specific [place] 1.020 Urine Protein >=1000 (4+) H Urine Glucose (UA) Negative Urine Ketones Trace Urine Blood Large (3+) H Urine Nitrite Positive H Ur Leukocyte Esterase Large (3+) H Urine RBC >20 H Urine WBC >50 H Ur Squamous Epith Cells 3-5 Hyaline Casts >20 Assessment and Plan (1) RONAK (acute kidney injury): Status: Acute Plan Vane has acute kidney injury due to compromise in renal perfusion with resultant tubular injury She also received Toradol. No reason to suspect obstructive uropathy, GN or AIN C3, C4 ordered along with urine eosinophils ordered. If her serum creatinine rises we will get an renal ultrasound. No further NSAIDs . We shall give her 500 mL of normal saline today. Hopefully with continued supportive care her serum creatinine will settle to baseline No indication for any renal replacement. Shall closely follow-up. Procedures Date of Service Date of Service: 09/29/23
--- NOTE | 2023-09-29 13:48 | MHC.CM.PN ---
IMM 09/28. Pt from [facility] for STR (pt is a STR bed hold), she uses a walker and wheelchair at baseline. Transport via [facility]LS/[facility]. HCP on file and verified. Prior to STR pt lived at home with home O2 from [facility]. PCP: Dr. Jayjay Sood
[2023-09-29] MEDS: Enoxaparin Sodium 40 MG/0.4 ML SYRINGE SUBCUT (16:42)
[2023-09-29] MEDS: Montelukast Sodium 10 MG TABLET PO (21:10)
[2023-09-29] MEDS: Magnesium Oxide 400 MG TABLET PO (21:18)
[2023-09-30] VITALS (10 sets, daily range): BP systolic 139–162; BP diastolic 62–86; PULSE 66–88; RESP 16–22; TEMP 35.9–37; O2SAT 92–98
[2023-09-30] MEDS: HYDROmorphone HCl 0.5 MG/0.5 ML SYRINGE IVPUSH (00:57)
[2023-09-30] MEDS: 0.9 % Sodium Chloride Flush 3 ML SYRINGE IVFLUSH ×4 (01:04→23:55)
[2023-09-30] MEDS: Levothyroxine Sodium 50 MCG TABLET PO (05:08)
[2023-09-30] MEDS: Acetaminophen 325 MG TABLET 650 MG PO ×2 (05:09→20:15)
[2023-09-30 06:01] LABS: Hemoglobin 11.1 g/dl (12.0-16.0); Mean Corpuscular HGB Conc 33.6 g/dl (31.0-35.0); Mean Corpuscular Volume 92.2 fL (80.0-98.0); Mean Platelet Volume 12.6 fL (9.4-12.3); Platelet Count 124 X10*3/uL (160-400); Red Blood Count 3.58 X10*6/uL (4.20-5.50)
[2023-09-30 06:32] LABS: Anion Gap 15 (12-20); Blood Urea Nitrogen 51 mg/dL (9-16); Calcium 8.8 mg/dL (8.4-10.2); Carbon Dioxide 30 mmol/L (22-29); Chloride 92 mmol/L (96-108); Creatinine Clr Calc Pharmacy 19.8; Estimated Glomerular Filt Rate 25; Glucose Random 148 mg/dL (60-115); Potassium 3.4 mmol/L (3.3-5.1); Sodium 134 mmol/L (135-145)
[2023-09-30] MEDS: Albuterol/Iprat 2.5/0.5MG 3 ML AMPUL.NEB INHALE ×4 (08:16→19:58)
[2023-09-30] MEDS: Gabapentin 300 MG CAPSULE PO ×2 (09:33→20:15)
[2023-09-30] MEDS: Multivitamin TABLET 1 TAB PO (09:33)
[2023-09-30] MEDS: Aspirin Enteric Coated 81 MG TABLET.DR PO (09:33)
[2023-09-30] MEDS: Oseltamivir Phosphate 30 MG CAPSULE PO ×2 (09:33→23:55)
[2023-09-30] MEDS: methylPREDNISolone Sod Succ 40 MG/ML VIAL IVPUSH ×2 (09:33→23:55)
[2023-09-30] MEDS: cefTRIAXone sodium 1 GM in 0.9 % Sodium Chloride 50 ML IV (12:43)
[2023-09-30] MEDS: Enoxaparin Sodium 30 MG/0.3 ML SYRINGE SUBCUT (16:39)
[2023-09-30] MEDS: Melatonin 3 MG TABLET 6 MG PO (20:16)
[2023-09-30] MEDS: guaiFENesin DM 200/20/10 ML 10 ML SYRUP PO (20:16)
[2023-09-30] MEDS: Magnesium Oxide 400 MG TABLET PO (20:17)
[2023-09-30] MEDS: Montelukast Sodium 10 MG TABLET PO (20:17)
[2023-10-01] VITALS (13 sets, daily range): BP systolic 140–182; BP diastolic 58–86; PULSE 63–84; RESP 16–22; TEMP 36.2–37.2; O2SAT 92–99
[2023-10-01] MEDS: Levothyroxine Sodium 50 MCG TABLET PO (06:50)
[2023-10-01] MEDS: Aspirin Enteric Coated 81 MG TABLET.DR PO (08:01)
[2023-10-01] MEDS: Multivitamin TABLET 1 TAB PO (08:01)
[2023-10-01] MEDS: guaiFENesin DM 200/20/10 ML 10 ML SYRUP PO ×3 (08:01→19:54)
[2023-10-01] MEDS: Gabapentin 300 MG CAPSULE PO ×2 (08:01→19:55)
[2023-10-01] MEDS: amLODIPine Besylate 5 MG TABLET PO ×2 (08:01→19:55)
[2023-10-01] MEDS: Acetaminophen 325 MG TABLET 650 MG PO ×2 (08:02→19:54)
[2023-10-01] MEDS: 0.9 % Sodium Chloride Flush 3 ML SYRINGE IVFLUSH ×3 (08:03→19:58)
[2023-10-01] MEDS: Albuterol/Iprat 2.5/0.5MG 3 ML AMPUL.NEB INHALE ×3 (08:24→19:31)
[2023-10-01 08:56] LABS: Anion Gap 15 (12-20); Blood Urea Nitrogen 53 mg/dL (9-16); Calcium 9.2 mg/dL (8.4-10.2); Carbon Dioxide 29 mmol/L (22-29); Chloride 95 mmol/L (96-108); Creatinine Clr Calc Pharmacy 23.1; Estimated Glomerular Filt Rate 30; Glucose Random 175 mg/dL (60-115); Sodium 135 mmol/L (135-145)
--- NOTE | 2023-10-01 12:01 | HO.PM.IMPN ---
Subjective Subjective Date of Service: 10/01/23 Interval History: Resting comfortably offers no acute complaints, denies fever, no chills, complaining of cough productive grayish white phlegm, no chest pain, no palpitations, no headache, no dizziness complaining of dryness left elbow, no urinary symptoms, no acute events overnight. Review of Systems All other system reviewed and negative. Physical Exam Vital Signs: Vital Signs: Last Vital Signs Temp 98.9 F 10/01/23 11:39 Pulse 66 10/01/23 11:39 Resp 20 10/01/23 11:39 BP 182/72 H 10/01/23 11:39 Pulse Ox 99 10/01/23 11:39 O2 Del Method Nasal Cannula 10/01/23 11:39 O2 Flow Rate 3 10/01/23 11:39 Oxygen Flow Rate 5 09/28/23 11:11 BMI result Body Mass Index 24.3 Const: Other: General awake alert x3,resting comfortably in no acute distress. anicteric sclera Neck supple no JVD. CVS regular rate rhythm, no murmurs Respiratory lungs coarse breath sounds, diminished at bases Gastrointestinal abdomen soft, non tender, bowel sounds audible, no guarding , no rigidity. Extremities no edema/danish wrap on both knees Neuro non focal , moving all 4 extremity speech clear. skin no rash psych appropriate affect. Objective Data Active Medications Acetaminophen (Acetaminophen 325 Mg Tablet) 650 mg PO Q6H PRN PRN Reason: Pain, Mild (Pain Scale 1-3) Last Admin: 10/01/23 08:02 Dose: 650 mg Documented By: RUDDY Albuterol/Ipratropium (Albuterol/Iprat 2.5/0.5mg 3 Ml Ampul.Neb) 3 ml INHALE RQ4H WHILE AWAKE [facility] Last Admin: 10/01/23 11:42 Dose: Not Given Documented By: BRIJESH Non-Admin Reason: Patient Asleep Amlodipine Besylate (Amlodipine Besylate 5 Mg Tablet) 5 mg PO BID [facility]; Protocol Last Admin: 10/01/23 08:01 Dose: 5 mg Documented By: RUDDY Aspirin (Aspirin Enteric Coated 81 Mg Tablet.) 81 mg PO DAILY [facility] Last Admin: 10/01/23 08:01 Dose: 81 mg Documented By: RUDDY Docusate Sodium (Docusate Sodium 100 Mg Capsule) 100 mg PO DAILY PRN PRN Reason: Constipation Enoxaparin Sodium (Enoxaparin Sodium 30 Mg/0.3 Ml Syringe) 30 mg SUBCUT Q24H [facility] Last Admin: 09/30/23 16:39 Dose: 30 mg Documented By: RUDDY Gabapentin (Gabapentin 300 Mg Capsule) 300 mg PO BID [facility] Last Admin: 10/01/23 08:01 Dose: 300 mg Documented By: RUDDY Guaifenesin/Dextromethorphan (Guaifenesin Dm 200/20/10 Ml 10 Ml Syrup) 10 ml PO Q4H PRN PRN Reason: Cough Last Admin: 10/01/23 08:01 Dose: 10 ml Documented By: RUDDY Ceftriaxone Sodium 1 gm/ (Sodium Chloride) 50 mls @ 100 mls/hr IV Q24H [facility] Last Infusion: 09/30/23 13:13 Dose: Infused Documented By: RUDDY Levothyroxine Sodium (Levothyroxine Sodium 50 Mcg Tablet) 50 mcg PO SUTUTHSA@0630 [facility] Last Admin: 10/01/23 06:50 Dose: 50 mcg Documented By: DENNIS Levothyroxine Sodium (Levothyroxine Sodium 75 Mcg Tablet) 75 mcg PO MOWEFR@0630 [facility] Magnesium Oxide (Magnesium Oxide 400 Mg Tablet) 400 mg PO BEDTIME [facility] Last Admin: 09/30/23 20:17 Dose: 400 mg Documented By: DENNIS Melatonin (Melatonin 3 Mg Tablet) 6 mg PO BEDTIME PRN PRN Reason: Insomnia Last Admin: 09/30/23 20:16 Dose: 6 mg Documented By: DENNIS Methylprednisolone Sodium Succinate (Methylprednisolone Sod Succ 40 Mg/Ml Vial) 40 mg IVPUSH Q12H [facility] Last Admin: 09/30/23 23:55 Dose: 40 mg Documented By: DENNIS Montelukast Sodium (Montelukast Sodium 10 Mg Tablet) 10 mg PO BEDTIME [facility] Last Admin: 09/30/23 20:17 Dose: 10 mg Documented By: DENNIS Multivitamins/Vitamin C (Multivitamin Tablet) 1 tab PO DAILY [facility] Last Admin: 10/01/23 08:01 Dose: 1 tab Documented By: RUDDY Ondansetron HCl (Ondansetron Hcl 4 Mg/2 Ml Vial) 4 mg IVPUSH Q8H PRN PRN Reason: Nausea and Vomiting Oseltamivir Phosphate (Oseltamivir Phosphate 30 Mg Capsule) 30 mg PO Q12H [facility] Stop: 10/02/23 23:01 Last Admin: 09/30/23 23:55 Dose: 30 mg Documented By: DENNIS Sodium Chloride (0.9 % Sodium Chloride Flush 3 Ml Syringe) 3 ml IVFLUSH QSHIFT [facility] Last Admin: 10/01/23 08:03 Dose: 3 ml Documented By: RUDDY Labs 09/30/23 05:39 10/01/23 08:33 Labs: Laboratory Results - last 24 hr 10/01/23 08:33 Hold Purple Top SEE NOTE Anion Gap 15 Estim Creat Clear Calc 23.1 Estimated GFR 30 Random Glucose 175 H Calcium 9.2 Microbiology Microbiology Results: Microbiology 09/28/23 Unknown Urine Culture - Final Urine clean catch - Urine carlos top Klebsiella pneumoniae Proteus mirabilis 09/28/23 11:55 Blood Culture - Preliminary Blood - Venous No growth after 48 hours. 09/28/23 11:20 Blood Culture - Preliminary Blood - Venous No growth after 48 hours. Assessment and Plan (1) UTI (urinary tract infection): Status: Acute (2) Encephalopathy acute: Status: Acute (3) Influenza A: Status: Acute (4) COPD exacerbation: Status: Acute (5) RONAK (acute kidney injury): Status: Acute Plan 88-year-old female with a PMH significant for?COPD chronically on 3L home O2, HTN, HLD, HFpEF, paroxysmal AFib not on anticoagulation, hx of [place] around 5 years ago, and hypothyroidism who presents to the ED from [facility]?for evaluation of increased lethargy, SOB, and difficulty breathing. Pt will be admitted to the hospital for treatment further evaluation of acute encephalopathy in the setting of influenza infection and UTI with sepsis. Acute on chronic hypoxic respiratory failure in the setting of influenza A infection and COPD exacerbation. Feeling better, high-flow discontinued patient now on nasal cannula oxygenation 95% on Tamiflu D3/5, continue DuoNeb ., DC IV Solu-Medrol and transitioned to by mouth steroids 20mg po , continue guaifenesin Continue Singulair Acute leukocytosis due to steroids, clinically improving no worsening infection UTI with sepsis All features of sepsis resolved, no recurrent fevers, no tachypnea or tachycardia,lactic acid WNL at 1.6 Continue IV ceftriaxone, started 09/28/2023 will transition to by mouth Ceftin 250 b.i.d. upon discharge Urine culture positive for Klebsiella and Proteus mirabilis greater than 100,000 sensitive to ceftriaxone Blood cultures x2 negative RONAK Creatinine bumped from 1.45-2.03 , now trending down to 1.6 will hold nephrotoxins avoid hypotension. Status post IV fluids x500 mL , hold Lasix Being followed by Nephrology likely ATN workup pending Acute encephalopathy Resolved was likely due to hypoxia and UTI. Hypothyroidism continue Synthroid. Uncontrolled blood pressure resume Norvasc 5 mg b.i.d. and added hydralazine 25 mg t.i.d. Full Code DVT Prophylaxis: Lovenox Pt will require continued inpatient hospitalization for treatment of acute on chronic hypoxic respiratory failure in the setting of influenza infection and UTI with sepsis. Given patient's advanced age and significant comorbidities including history of CAD/[place] and COPD, patient is at risk of further decline and in need of hospitalization for administration of IV antibiotics, IV steroids, breathing treatments, and close respiratory monitoring. Quality Stroke Does the patient have a stroke diagnosis?: No VTE Prior VTE?: No VTE Risk Level:: Medical - moderate - high VTE Device Contraindication: Treatment Not Indicated VTE Drug Contraindication: N/A - Med Ordered
[2023-10-01] MEDS: Oseltamivir Phosphate 30 MG CAPSULE PO (12:50)
[2023-10-01] MEDS: cefTRIAXone sodium 1 GM in 0.9 % Sodium Chloride 50 ML IV (12:50)
[2023-10-01] MEDS: Gabapentin 100 MG CAPSULE 200 MG PO (13:35)
[2023-10-01] MEDS: hydrALAZINE HCl 25 MG TABLET PO ×2 (15:10→19:55)
[2023-10-01] MEDS: Enoxaparin Sodium 30 MG/0.3 ML SYRINGE SUBCUT (15:10)
[2023-10-01] MEDS: Magnesium Oxide 400 MG TABLET PO (19:54)
[2023-10-01] MEDS: Montelukast Sodium 10 MG TABLET PO (19:55)
[2023-10-01] MEDS: HYDROmorphone HCl 0.5 MG/0.5 ML SYRINGE IVPUSH (21:01)
[2023-10-02] VITALS (10 sets, daily range): BP systolic 130–162; BP diastolic 44–74; PULSE 47–93; RESP 16–20; TEMP 36.2–36.8; O2SAT 94–97
[2023-10-02] MEDS: Oseltamivir Phosphate 30 MG CAPSULE PO ×3 (00:52→22:25)
[2023-10-02] MEDS: guaiFENesin DM 200/20/10 ML 10 ML SYRUP PO ×3 (05:39→20:24)
[2023-10-02] MEDS: Levothyroxine Sodium 75 MCG TABLET PO (05:39)
[2023-10-02] MEDS: Acetaminophen 325 MG TABLET 650 MG PO ×3 (05:39→20:20)
[2023-10-02 07:40] LABS: Anion Gap 15 (12-20); Blood Urea Nitrogen 51 mg/dL (9-16); Calcium 8.7 mg/dL (8.4-10.2); Carbon Dioxide 29 mmol/L (22-29); Chloride 95 mmol/L (96-108); Creatinine Clr Calc Pharmacy 25.3; Estimated Glomerular Filt Rate 34; Glucose Random 145 mg/dL (60-115); Potassium 3.8 mmol/L (3.3-5.1); Sodium 135 mmol/L (135-145)
[2023-10-02] MEDS: Albuterol/Iprat 2.5/0.5MG 3 ML AMPUL.NEB INHALE ×3 (07:42→19:32)
[2023-10-02] MEDS: hydrALAZINE HCl 25 MG TABLET PO ×3 (09:11→20:20)
[2023-10-02] MEDS: predniSONE 20 MG TABLET PO (09:11)
[2023-10-02] MEDS: 0.9 % Sodium Chloride Flush 3 ML SYRINGE IVFLUSH ×3 (09:11→20:23)
[2023-10-02] MEDS: amLODIPine Besylate 5 MG TABLET PO ×2 (09:11→20:20)
[2023-10-02] MEDS: Aspirin Enteric Coated 81 MG TABLET.DR PO (09:11)
[2023-10-02] MEDS: Gabapentin 300 MG CAPSULE PO ×2 (09:11→20:20)
[2023-10-02] MEDS: Multivitamin TABLET 1 TAB PO (09:11)
[2023-10-02 10:28] LABS: Complement C3 106 mg/dL
[2023-10-02] MEDS: cefTRIAXone sodium 1 GM in 0.9 % Sodium Chloride 50 ML IV (11:12)
--- NOTE | 2023-10-02 11:32 | MHC.CLN ---
F/U PT WITH INCREASED NUTRITION RISK R/T PRESSURE INJURY PO INTAKE VARIABLE RANGING FROM 25-100% DIET RX: CARDIAC-APPROPRIATE PT RECEIVING ENSURE BID TO PROMOTE WOUND HEALING SUPPLEMENT PROVIDES 700KCALS, 40G PROTEIN WITH 100% ACCEPTANCE MONITOR PO INTAKE AND ENCOURAGE SUPPLEMENT
[2023-10-02 11:59] LABS: EOS Counted 0 CELLS; EOS QC POS YES; EOS Stain Quality OK YES; WBC, Counted 5 CELLS
--- NOTE | 2023-10-02 13:19 | MHC.CM.PN ---
Patient is not yet medically cleared for dc (IV Ceftriaxone); returning to [facility] is the goal and CM will continue to follow.
--- NOTE | 2023-10-02 13:39 | P.PNIM_ITS ---
Subjective Subjective Date of Service: 10/02/23 Interval History: No acute issues overnight. Only complaint is right knee pain Review of Systems Denies chest pain Denies shortness of breath Denies nausea vomiting diarrhea Denies fever chills Physical Exam 2 Vital Signs: Vital Signs: Last Vital Signs Temp 97.2 F 10/02/23 11:33 Pulse 76 10/02/23 11:33 Resp 18 10/02/23 11:33 BP 140/62 H 10/02/23 11:33 Pulse Ox 94 10/02/23 11:33 O2 Del Method Nasal Cannula 10/02/23 11:33 O2 Flow Rate 3 10/02/23 11:33 Oxygen Flow Rate 5 09/28/23 11:11 BMI result Body Mass Index 24.3 Const: Other: Awake alert no acute distress Resp: Other: Clear to auscultation bilaterally no rales rhonchi or wheezes Cardio: Other: No S4; positive S1-S2; no S3 murmurs rubs or gallops GI: Other: Soft nontender nondistended normoactive bowel sounds Extrem: Other: No edema bilaterally Objective Data Active Medications Acetaminophen (Acetaminophen 325 Mg Tablet) 650 mg PO Q6H PRN PRN Reason: Pain, Mild (Pain Scale 1-3) Last Admin: 10/02/23 11:12 Dose: 650 mg Documented By: SHAKIRA Albuterol/Ipratropium (Albuterol/Iprat 2.5/0.5mg 3 Ml Ampul.Neb) 3 ml INHALE RQ4H WHILE AWAKE [facility] Last Admin: 10/02/23 12:48 Dose: Not Given Documented By: EVE Non-Admin Reason: Patient Refused Amlodipine Besylate (Amlodipine Besylate 5 Mg Tablet) 5 mg PO BID [facility]; Protocol Last Admin: 10/02/23 09:11 Dose: 5 mg Documented By: SHAKIRA Aspirin (Aspirin Enteric Coated 81 Mg Tablet.) 81 mg PO DAILY [facility] Last Admin: 10/02/23 09:11 Dose: 81 mg Documented By: SHAKIRA Docusate Sodium (Docusate Sodium 100 Mg Capsule) 100 mg PO DAILY PRN PRN Reason: Constipation Enoxaparin Sodium (Enoxaparin Sodium 30 Mg/0.3 Ml Syringe) 30 mg SUBCUT Q24H [facility] Last Admin: 10/01/23 15:10 Dose: 30 mg Documented By: RUDDY Gabapentin (Gabapentin 300 Mg Capsule) 300 mg PO BID [facility] Last Admin: 10/02/23 09:11 Dose: 300 mg Documented By: SHAKIRA Guaifenesin/Dextromethorphan (Guaifenesin Dm 200/20/10 Ml 10 Ml Syrup) 10 ml PO Q4H PRN PRN Reason: Cough Last Admin: 10/02/23 09:11 Dose: 10 ml Documented By: SHAKIRA Hydralazine HCl (Hydralazine Hcl 25 Mg Tablet) 25 mg PO TID [facility]; Protocol Last Admin: 10/02/23 09:11 Dose: 25 mg Documented By: SHAKIRA Ceftriaxone Sodium 1 gm/ (Sodium Chloride) 50 mls @ 100 mls/hr IV Q24H [facility] Last Infusion: 10/02/23 11:47 Dose: Infused Documented By: SHAKIRA Levothyroxine Sodium (Levothyroxine Sodium 50 Mcg Tablet) 50 mcg PO SUTUTHSA@0630 [facility] Last Admin: 10/01/23 06:50 Dose: 50 mcg Documented By: DENNIS Levothyroxine Sodium (Levothyroxine Sodium 75 Mcg Tablet) 75 mcg PO MOWEFR@0630 [facility] Last Admin: 10/02/23 05:39 Dose: 75 mcg Documented By: BRADY Magnesium Oxide (Magnesium Oxide 400 Mg Tablet) 400 mg PO BEDTIME [facility] Last Admin: 10/01/23 19:54 Dose: 400 mg Documented By: BRADY Melatonin (Melatonin 3 Mg Tablet) 6 mg PO BEDTIME PRN PRN Reason: Insomnia Last Admin: 09/30/23 20:16 Dose: 6 mg Documented By: DENNIS Montelukast Sodium (Montelukast Sodium 10 Mg Tablet) 10 mg PO BEDTIME [facility] Last Admin: 10/01/23 19:55 Dose: 10 mg Documented By: BRADY Multivitamins/Vitamin C (Multivitamin Tablet) 1 tab PO DAILY [facility] Last Admin: 10/02/23 09:11 Dose: 1 tab Documented By: SHAKIRA Ondansetron HCl (Ondansetron Hcl 4 Mg/2 Ml Vial) 4 mg IVPUSH Q8H PRN PRN Reason: Nausea and Vomiting Oseltamivir Phosphate (Oseltamivir Phosphate 30 Mg Capsule) 30 mg PO Q12H [facility] Stop: 10/02/23 23:01 Last Admin: 10/02/23 11:12 Dose: 30 mg Documented By: SHAKIRA Prednisone (Prednisone 20 Mg Tablet) 20 mg PO DAILY [facility] Last Admin: 10/02/23 09:11 Dose: 20 mg Documented By: SHAKIRA Sodium Chloride (0.9 % Sodium Chloride Flush 3 Ml Syringe) 3 ml IVFLUSH QSHIFT [facility] Last Admin: 10/02/23 09:11 Dose: 3 ml Documented By: SHAKIRA Labs 09/30/23 05:39 10/02/23 06:46 Labs: Laboratory Results - last 24 hr 09/30/23 10/02/23 10/02/23 05:39 05:55 06:46 Hold Purple Top SEE NOTE Anion Gap 15 Estim Creat Clear Calc 25.3 Estimated GFR 34 Random Glucose 145 H Calcium 8.7 Urine Eosinophils % 0.0 Complement C3 106 Complement C4 29 Assessment and Plan (1) Encephalopathy acute: Status: Acute (2) Influenza A: Status: Acute (3) COPD exacerbation: Status: Acute Plan 88-year-old female with a PMH significant for?COPD chronically on 3L home O2, HTN, HLD, HFpEF, paroxysmal AFib not on anticoagulation, hx of [place] around 5 years ago, and hypothyroidism who presents to the ED from [facility]?for evaluation of increased lethargy, SOB, and difficulty breathing. Pt will be admitted to the hospital for treatment further evaluation of acute encephalopathy in the setting of influenza infection and UTI with sepsis. Sepsis has resolved; mentation appears back at baseline 1.Acute on chronic hypoxic respiratory failure in the setting of influenza A infection/COPD exacerbation. -satting well on 3 L -Tamiflu D4/5;continue DuoNeb ., oral prednisone taper 2.UTI with sepsis -All features of sepsis resolved, no recurrent fevers, no tachypnea or tachycardia,lactic acid WNL at 1.6 -continue IV ceftriaxone(5);Ceftin 250 b.i.d. upon discharge -blood cultures x2 negative 3.RONAK -responded to volume 4.Acute encephalopathy -resolved 5.HTN -acceptable control on current therapies -Norvasc 5 mg b.i.d...hydralazine 25 mg t.i.d. Full Code Lovenox Pt will require continued inpatient hospitalization for treatment of acute on chronic hypoxic respiratory failure in the setting of influenza infection and UTI with sepsis. Given patient's advanced age and significant comorbidities including history of CAD/[place] and COPD, patient is at risk of further decline and in need of hospitalization for administration of IV antibiotics, IV steroids, breathing treatments, and close respiratory monitoring. Quality Stroke Does the patient have a stroke diagnosis?: No VTE Prior VTE?: No VTE Risk Level:: Medical - moderate - high VTE Device Contraindication: Treatment Not Indicated VTE Drug Contraindication: N/A - Med Ordered
[2023-10-02] MEDS: HYDROmorphone HCl 0.5 MG/0.5 ML SYRINGE IVPUSH (14:02)
[2023-10-02] MEDS: Enoxaparin Sodium 30 MG/0.3 ML SYRINGE SUBCUT (17:02)
--- NOTE | 2023-10-02 17:22 | P.PNNP_ITS ---
Subjective Subjective Date of Service: 10/03/23 Interval history: Events noted. He still has some cough Physical Exam 2 Vital Signs: Vital Signs: Last Vital Signs Temp 97.2 F 10/02/23 11:33 Pulse 72 10/02/23 14:59 Resp 18 10/02/23 14:59 BP 162/62 H 10/02/23 14:00 Pulse Ox 94 10/02/23 11:33 O2 Del Method Nasal Cannula 10/02/23 11:33 O2 Flow Rate 3 10/02/23 11:33 Oxygen Flow Rate 5 09/28/23 11:11 BMI result Body Mass Index 24.3 Awake. Comfortable. Neck is supple. Mucosa moist. Lungs bilateral scattered rhonchi. Heart S1-S2 heard no gallop. Abdomen soft. Extremities no edema. No involuntary movements. No myoclonus. Objective Data Labs 10/03/23 06:28 10/03/23 06:28 Labs: Laboratory Results - last 24 hr 09/30/23 10/02/23 10/02/23 05:39 05:55 06:46 Hold Purple Top SEE NOTE Sodium 135 Potassium 3.8 Chloride 95 L Carbon Dioxide 29 Anion Gap 15 BUN 51 H Creatinine 1.46 H Estim Creat Clear Calc 25.3 Estimated GFR 34 Random Glucose 145 H Calcium 8.7 Urine Eosinophils % 0.0 Complement C3 106 Complement C4 29 Microbiology Microbiology Results: Microbiology 09/28/23 Unknown Urine clean catch - Urine carlos top Urine Culture - Final Klebsiella pneumoniae Proteus mirabilis 09/28/23 11:55 Blood - Venous Blood Culture - Preliminary No growth after 48 hours. 09/28/23 11:20 Blood - Venous Blood Culture - Preliminary No growth after 48 hours. Procedures Date of Service Date of Service: 10/03/23 Assessment & Plan Assessment and plan (1) RONAK (acute kidney injury): Status: Acute Assessment and Plan: Vane has acute kidney injury due to compromise in renal perfusion with resultant tubular injury She also received Toradol. No reason to suspect obstructive uropathy, GN or AIN C3, C4 ANCAs are negative. Serum creatinine is gradually trending down No further NSAIDs . Keep intake more than output No indication for any renal replacement. Shall closely follow-up. Time Spent With Patient Time: Total time managing care of this patient today ____ minutes. Progress Note: Quality Stroke Does the patient have a stroke diagnosis?: No
[2023-10-02] MEDS: Montelukast Sodium 10 MG TABLET PO (20:20)
[2023-10-02] MEDS: Magnesium Oxide 400 MG TABLET PO (20:20)
--- NOTE | 2023-10-02 20:35 | PC.NURSE ---
Addendum entered by Tomi Eckert RN 10/03/23 00:08: Pt continues to express wishes to blow her brains out with a handgun. sitter remain in room. call peters in reach. aware. plan of care ongoing Addendum entered by Tomi Eckert RN 10/02/23 22:04: MD burciaga Original Note: pt making statements about wanting to kill herself by blowing her brains out. 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 sitter in room.
[2023-10-02] MEDS: Lidocaine 4 % Cream KIT 1 APPL TOPICAL (21:30)
--- NOTE | 2023-10-02 22:05 | PM.EVENT ---
Event Note Date of Service: 10/02/23 Event Note: Patient with SI. Will order sitter and consult psych Time Spent With Patient Time: Total time managing care of this patient today ____ minutes.
[2023-10-03] VITALS (14 sets, daily range): BP systolic 148–182; BP diastolic 58–79; PULSE 67–100; RESP 18–20; TEMP 36.2–37.1; O2SAT 91–98
[2023-10-03] MEDS: hydrALAZINE HCl 20 MG/ML VIAL 10 MG IVPUSH (00:26)
[2023-10-03] MEDS: Albuterol/Iprat 2.5/0.5MG 3 ML AMPUL.NEB INHALE ×4 (00:48→19:22)
[2023-10-03] MEDS: Melatonin 3 MG TABLET 6 MG PO ×2 (00:57→22:17)
[2023-10-03] MEDS: Acetaminophen 325 MG TABLET 650 MG PO ×4 (00:57→23:47)
[2023-10-03] MEDS: guaiFENesin DM 200/20/10 ML 10 ML SYRUP PO ×4 (01:13→22:17)
[2023-10-03] MEDS: LORazepam 2 MG/ML VIAL 0.5 MG IVPUSH (01:22)
[2023-10-03 01:56] LABS: Venous Blood Gas Refer to POC result
[2023-10-03 02:01] LABS: VBG Base Excess 12.6 mmol/L; VBG HCO3 36 mmol/L (22-26); VBG pCO2 42 mmHg; VBG pH 7.54 (7.32-7.43); VBG pO2 106 mmHg
[2023-10-03] MEDS: Levothyroxine Sodium 50 MCG TABLET PO (05:51)
[2023-10-03 07:14] LABS: Hematocrit 35.2 % (37.0-47.0); Hemoglobin 11.6 g/dl (12.0-16.0); Mean Corpuscular Hemoglobin 30.6 pg (27.0-33.0); Mean Corpuscular Volume 92.9 fL (80.0-98.0); Mean Platelet Volume 11.3 fL (9.4-12.3); NRBC Pct Auto 0.1 /100WBC (0.0-0.2); Platelet Count 202 X10*3/uL (160-400); Red Blood Count 3.79 X10*6/uL (4.20-5.50); Red Cell Distribution Width 12.1 % (11.0-16.0); White Blood Count 15.7 X10*3/uL (4.8-10.8)
[2023-10-03 07:45] LABS: Alanine Aminotransferase 28 U/L (0-31); Albumin Level 3.5 g/dL (3.5-5.0); Alkaline Phosphatase 68 U/L (39-117); Anion Gap 14 (12-20); Aspartate Amino Transferase 43 U/L (5-31); Bilirubin Total 0.4 mg/dL (0.0-1.0); Blood Urea Nitrogen 47 mg/dL (9-16); Calcium 9.1 mg/dL (8.4-10.2); Carbon Dioxide 34 mmol/L (22-29); Chloride 95 mmol/L (96-108); Creatinine Clr Calc Pharmacy 29.9; Estimated Glomerular Filt Rate 41; Glucose Fasting 102 mg/dL (60-99); Potassium 3.5 mmol/L (3.3-5.1); Sodium 139 mmol/L (135-145); Total Protein 6.9 g/dL (6.5-8.0)
[2023-10-03 07:46] LABS: Band Neutrophils Percent 5 % (3-5); Lymphocytes Absolute Manual 1.6 X10*3/uL (1.2-4.9); Lymphocytes Percent Manual 10 % (20-40); Metamyelocytes Absolute 0.5 X10*3/uL; Metamyelocytes Percent 3 %; Monocytes Absolute Manual 1.4 X10*3/uL (0.1-1.2); Monocytes Percent Manual 9 % (2-11); Myelocytes Absolute 0.3 X10*/uL; Myelocytes Percent 2 %; Neutrophils Absolute Manual 11.9 X10*3/uL (2.0-8.3); Neutrophils Percent Manual 71 % (45-73)
[2023-10-03 07:51] LABS: Large Platelet PRESENT; Platelet Estimate NORMAL (NORMAL); Platelet Morphology Comment NOTED; RBC Morphology NORMAL
[2023-10-03] MEDS: amLODIPine Besylate 5 MG TABLET PO ×2 (07:52→22:17)
[2023-10-03] MEDS: hydrALAZINE HCl 25 MG TABLET PO ×3 (07:52→22:17)
[2023-10-03] MEDS: Gabapentin 300 MG CAPSULE PO ×2 (07:52→22:17)
[2023-10-03] MEDS: Docusate Sodium 100 MG CAPSULE PO (07:52)
[2023-10-03] MEDS: predniSONE 20 MG TABLET PO (07:52)
[2023-10-03] MEDS: Aspirin Enteric Coated 81 MG TABLET.DR PO (07:52)
[2023-10-03] MEDS: Multivitamin TABLET 1 TAB PO (07:53)
[2023-10-03] MEDS: 0.9 % Sodium Chloride Flush 3 ML SYRINGE IVFLUSH ×3 (07:53→22:18)
[2023-10-03] MEDS: cefTRIAXone sodium 1 GM in 0.9 % Sodium Chloride 50 ML IV (12:26)
--- NOTE | 2023-10-03 14:28 | P.CDIM_ITS ---
PROVIDER RESPONSE TEXT: To clarify, the appropriate diagnosis supported by the clinical indicators: Metabolic QUERY TEXT: PHYSICIAN'S DOCUMENTATION REQUEST Date of Query: 10/03/2023 10:15 AM EDT Patient Name: SUNSHIEN CRESPO Admit Date: 09/28/2023 Dear Navjot Norris, A review of the medical record indicates additional documentation may be needed. Please review below and update the documentation accordingly. Clinical Indicators: H&P: Confusion, patient will be admitted to the hospital for treatment further evaluation of acute en cephalopathy in the setting of influenza/UTI with sepsis. Progress notes Plan - Acute encephalopathy, hypoxia, does not carry any diagnosis of dementia or ment al decline. AAOx2, lethargic times 1-2 days Monitor mentation. Based on the above, please further specify, in the Progress Notes, the known or suspected type of the documented encephalopathy: Metabolic Septic Toxic Toxic metabolic Hypertensive Other (explain) Clinically unable to determine (explain) Thank you, Marialuisa Martinez, CCS, CDIS Use of terms such as suspected, likely, concern for, or probable (associated with a specific diagnosi s that is being evaluated, monitored, or treated as if it exists) are acceptable and can be coded in the inpatient se tting, when documented at the time of discharge. Please use your independent medical judgment in providing your response. THIS QUERY IS PART OF THE PERMANENT MEDICAL RECORD
--- NOTE | 2023-10-03 16:17 | P.PNIM_ITS ---
Subjective Subjective Date of Service: 10/03/23 Interval History: Continues to do well overall. Voice some self-harm statements overnight; psych consult pending Review of Systems Denies chest pain Denies shortness of breath Denies nausea vomiting diarrhea Denies fever chills Physical Exam 2 Vital Signs: Vital Signs: Last Vital Signs Temp 98.1 F 10/03/23 15:38 Pulse 67 10/03/23 15:49 Resp 18 10/03/23 15:49 BP 164/60 H 10/03/23 15:38 Pulse Ox 93 10/03/23 15:38 O2 Del Method Nasal Cannula 10/03/23 15:38 O2 Flow Rate 2 10/03/23 15:38 Oxygen Flow Rate 5 09/28/23 11:11 BMI result Body Mass Index 24.3 Const: Other: Awake alert no acute distress Resp: Other: Clear to auscultation bilaterally no rales rhonchi or wheezes Cardio: Other: No S4; positive S1-S2; no S3 murmurs rubs or gallops GI: Other: Soft nontender nondistended normoactive bowel sounds Extrem: Other: No edema bilaterally Objective Data Active Medications Acetaminophen (Acetaminophen 325 Mg Tablet) 650 mg PO Q6H PRN PRN Reason: Pain, Mild (Pain Scale 1-3) Last Admin: 10/03/23 14:05 Dose: 650 mg Documented By: SHAKIRA Albuterol/Ipratropium (Albuterol/Iprat 2.5/0.5mg 3 Ml Ampul.Neb) 3 ml INHALE RQ4H WHILE AWAKE [facility] Last Admin: 10/03/23 15:47 Dose: 3 ml Documented By: EVE Albuterol/Ipratropium (Albuterol/Iprat 2.5/0.5mg 3 Ml Ampul.Neb) 3 ml INHALE RQ4H PRN PRN Reason: Wheezing Last Admin: 10/03/23 00:48 Dose: 3 ml Documented By: SAMY Amlodipine Besylate (Amlodipine Besylate 5 Mg Tablet) 5 mg PO BID [facility]; Protocol Last Admin: 10/03/23 07:52 Dose: 5 mg Documented By: SHAKIRA Aspirin (Aspirin Enteric Coated 81 Mg Tablet.) 81 mg PO DAILY [facility] Last Admin: 10/03/23 07:52 Dose: 81 mg Documented By: SHAKIRA Docusate Sodium (Docusate Sodium 100 Mg Capsule) 100 mg PO DAILY PRN PRN Reason: Constipation Last Admin: 10/03/23 07:52 Dose: 100 mg Documented By: SHAKIRA Enoxaparin Sodium (Enoxaparin Sodium 30 Mg/0.3 Ml Syringe) 30 mg SUBCUT Q24H [facility] Last Admin: 10/02/23 17:02 Dose: 30 mg Documented By: SHAKIRA Gabapentin (Gabapentin 300 Mg Capsule) 300 mg PO BID [facility] Last Admin: 10/03/23 07:52 Dose: 300 mg Documented By: SHAKIRA Guaifenesin/Dextromethorphan (Guaifenesin Dm 200/20/10 Ml 10 Ml Syrup) 10 ml PO Q4H PRN PRN Reason: Cough Last Admin: 10/03/23 14:05 Dose: 10 ml Documented By: SHAKIRA Hydralazine HCl (Hydralazine Hcl 25 Mg Tablet) 25 mg PO TID [facility]; Protocol Last Admin: 10/03/23 14:05 Dose: 25 mg Documented By: SHAKIRA Ceftriaxone Sodium 1 gm/ (Sodium Chloride) 50 mls @ 100 mls/hr IV Q24H [facility] Last Infusion: 10/03/23 13:07 Dose: Infused Documented By: SHAKIRA Levothyroxine Sodium (Levothyroxine Sodium 50 Mcg Tablet) 50 mcg PO SUTUTHSA@0630 [facility] Last Admin: 10/03/23 05:51 Dose: 50 mcg Documented By: BRADY Levothyroxine Sodium (Levothyroxine Sodium 75 Mcg Tablet) 75 mcg PO MOWEFR@0630 [facility] Last Admin: 10/02/23 05:39 Dose: 75 mcg Documented By: BRADY Magnesium Oxide (Magnesium Oxide 400 Mg Tablet) 400 mg PO BEDTIME [facility] Last Admin: 10/02/23 20:20 Dose: 400 mg Documented By: BRADY Melatonin (Melatonin 3 Mg Tablet) 6 mg PO BEDTIME PRN PRN Reason: Insomnia Last Admin: 10/03/23 00:57 Dose: 6 mg Documented By: BRADY Montelukast Sodium (Montelukast Sodium 10 Mg Tablet) 10 mg PO BEDTIME [facility] Last Admin: 10/02/23 20:20 Dose: 10 mg Documented By: BRADY Multivitamins/Vitamin C (Multivitamin Tablet) 1 tab PO DAILY [facility] Last Admin: 10/03/23 07:53 Dose: 1 tab Documented By: SHAKIRA Ondansetron HCl (Ondansetron Hcl 4 Mg/2 Ml Vial) 4 mg IVPUSH Q8H PRN PRN Reason: Nausea and Vomiting Prednisone (Prednisone 20 Mg Tablet) 20 mg PO DAILY [facility] Last Admin: 10/03/23 07:52 Dose: 20 mg Documented By: SHAKIRA Sodium Chloride (0.9 % Sodium Chloride Flush 3 Ml Syringe) 3 ml IVFLUSH QSHIFT [facility] Last Admin: 10/03/23 07:53 Dose: 3 ml Documented By: SHAKIRA Labs 10/03/23 06:28 10/03/23 06:28 Labs: Laboratory Results - last 24 hr 10/03/23 10/03/23 01:51 06:28 MCV 92.9 MCH 30.6 MCHC 33.0 RDW 12.1 Plt Count 202 D MPV 11.3 Immature Gran % (Auto) Cancelled Neut % (Auto) Cancelled Lymph % (Auto) Cancelled [place] % (Auto) Cancelled Eos % (Auto) Cancelled Baso % (Auto) Cancelled Lymph # (Auto) Cancelled [place] # (Auto) Cancelled Eos # (Auto) Cancelled Baso # (Auto) Cancelled Abs Immat Gran (auto) Cancelled Absolute Neuts (auto) Cancelled Absolute Nucleated RBC 0.020 H Nucleated RBC % (auto) 0.1 Neutrophils % (Manual) 71 Band Neutrophils % 5 Lymphocytes % (Manual) 10 L Monocytes % (Manual) 9 Metamyelocytes % 3 Myelocytes % 2 Abs Neuts (Manual) 11.9 H Lymphocytes # (Manual) 1.6 Monocytes # (Manual) 1.4 H Metamyelocytes # 0.5 Myelocytes # 0.3 Platelet Estimate NORMAL Large Platelets PRESENT Plt Morphology Comment NOTED RBC Morphology NORMAL VBG pH 7.54 H VBG pCO2 42 VBG pO2 106 VBG HCO3 36 H VBG O2 Saturation 100.0 VBG Base Excess 12.6 Anion Gap 14 Estim Creat Clear Calc 29.9 Estimated GFR 41 Fasting Glucose 102 H Calcium 9.1 Total Bilirubin 0.4 AST 43 H ALT 28 Alkaline Phosphatase 68 Total Protein 6.9 Albumin 3.5 Microbiology Microbiology Results: Microbiology 09/28/23 11:55 Blood Culture - Final Blood - Venous No growth after 5 days. 09/28/23 11:20 Blood Culture - Final Blood - Venous No growth after 5 days. Assessment and Plan (1) Acute hypoxic respiratory failure: Status: Acute (2) UTI (urinary tract infection): Status: Acute Plan 88-year-old female with a PMH significant for?COPD chronically on 3L home O2, HTN, HLD, HFpEF, paroxysmal AFib not on anticoagulation, hx of AK around 5 years ago, and hypothyroidism who presents to the ED from [facility] SNF?for evaluation of increased lethargy, SOB, and difficulty breathing. Pt will be admitted to the hospital for treatment further evaluation of acute encephalopathy in the setting of influenza infection and UTI with sepsis. Sepsis has resolved; mentation appears back at baseline 1.Acute on chronic hypoxic respiratory failure in the setting of influenza A infection/COPD exacerbation. -satting well on 3 L -Tamiflu D5/5;continue DuoNeb ., oral prednisone taper as ordered 2.UTI with sepsis -All features of sepsis resolved, no recurrent fevers, no tachypnea or tachycardia,lactic acid WNL at 1.6 -continue IV ceftriaxone(6);Ceftin 250 b.i.d. upon discharge -blood cultures x2 negative 3.RONAK -resolved 4. Self-harm statements ... Likely situational depression -await psych input 5.HTN -acceptable control on current therapies -Norvasc 5 mg b.i.d...hydralazine 25 mg t.i.d. Full Code Lovenox Pt will require continued inpatient hospitalization for treatment of acute on chronic hypoxic respiratory failure in the setting of influenza infection and UTI with sepsis. Given patient's advanced age and significant comorbidities including history of CAD/AK and COPD, patient is at risk of further decline and in need of hospitalization for administration of IV antibiotics, IV steroids, breathing treatments, and close respiratory monitoring. Quality Stroke Does the patient have a stroke diagnosis?: No VTE Prior VTE?: No VTE Risk Level:: Medical - moderate - high VTE Device Contraindication: Treatment Not Indicated VTE Drug Contraindication: N/A - Med Ordered
[2023-10-03] MEDS: Enoxaparin Sodium 30 MG/0.3 ML SYRINGE SUBCUT (16:26)
--- NOTE | 2023-10-03 21:19 | P.PNNP_ITS ---
Subjective Subjective Date of Service: 10/03/23 Interval history: Events noted Physical Exam 2 Vital Signs: Vital Signs: Last Vital Signs Temp 97.5 F 10/03/23 20:00 Pulse 80 10/03/23 20:00 Resp 19 10/03/23 20:00 BP 152/79 H 10/03/23 20:00 Pulse Ox 94 10/03/23 20:00 O2 Del Method Nasal Cannula 10/03/23 20:00 O2 Flow Rate 2 10/03/23 20:00 Oxygen Flow Rate 5 09/28/23 11:11 BMI result Body Mass Index 24.3 Const: General: comfortable and no acute distress HEENT: Head: Yes normocephalic Mouth: Normal oral and palatal mucosa present Eyes: EOM: EOMs intact bilaterally Neck: Neck: Yes supple Resp: Auscultation: diminished lung sounds Cardio: Jugular venous distension: no JVD Rate: regular rate GI: Palpation (GI): Soft to palpation Auscultation: normal bowel sounds : General: Yes no CVA tenderness Back/Spine/Pelvis: Back: no CVA tenderness Skin: General skin exam: no rashes or lesions noted Neuro: General: moves all extremities Extrem: General: Yes no pedal edema Objective Data Labs 10/03/23 06:28 10/03/23 06:28 Labs: Laboratory Results - last 24 hr 10/03/23 10/03/23 01:51 06:28 WBC 15.7 H RBC 3.79 L Hgb 11.6 L Hct 35.2 L MCV 92.9 MCH 30.6 MCHC 33.0 RDW 12.1 Plt Count 202 D MPV 11.3 Immature Gran % (Auto) Cancelled Neut % (Auto) Cancelled Lymph % (Auto) Cancelled [place] % (Auto) Cancelled Eos % (Auto) Cancelled Baso % (Auto) Cancelled Lymph # (Auto) Cancelled [place] # (Auto) Cancelled Eos # (Auto) Cancelled Baso # (Auto) Cancelled Abs Immat Gran (auto) Cancelled Absolute Neuts (auto) Cancelled Absolute Nucleated RBC 0.020 H Nucleated RBC % (auto) 0.1 Neutrophils % (Manual) 71 Band Neutrophils % 5 Lymphocytes % (Manual) 10 L Monocytes % (Manual) 9 Metamyelocytes % 3 Myelocytes % 2 Abs Neuts (Manual) 11.9 H Lymphocytes # (Manual) 1.6 Monocytes # (Manual) 1.4 H Metamyelocytes # 0.5 Myelocytes # 0.3 Platelet Estimate NORMAL Large Platelets PRESENT Plt Morphology Comment NOTED RBC Morphology NORMAL VBG pH 7.54 H VBG pCO2 42 VBG pO2 106 VBG HCO3 36 H VBG O2 Saturation 100.0 VBG Base Excess 12.6 Sodium 139 Potassium 3.5 Chloride 95 L Carbon Dioxide 34 H Anion Gap 14 BUN 47 H Creatinine 1.24 Estim Creat Clear Calc 29.9 Estimated GFR 41 Fasting Glucose 102 H Calcium 9.1 Total Bilirubin 0.4 AST 43 H ALT 28 Alkaline Phosphatase 68 Total Protein 6.9 Albumin 3.5 Microbiology Microbiology Results: Microbiology 09/28/23 11:55 Blood - Venous Blood Culture - Final No growth after 5 days. 09/28/23 11:20 Blood - Venous Blood Culture - Final No growth after 5 days. 09/28/23 Unknown Urine clean catch - Urine carlos top Urine Culture - Final Klebsiella pneumoniae Proteus mirabilis Procedures Date of Service Date of Service: 10/03/23 Assessment & Plan Assessment and plan (1) RONAK (acute kidney injury): Status: Acute Assessment and Plan: Vane has acute kidney injury due to compromise in renal perfusion with resultant tubular injury She also received Toradol. No reason to suspect obstructive uropathy, GN or AIN C3, C4 ANCAs are negative. Serum creatinine is gradually trending down - 1.24 today No further NSAIDs . Keep intake more than output No indication for any renal replacement. Shall closely follow-up. Time Spent With Patient Time: Total time managing care of this patient today ____ minutes. Progress Note: Quality Stroke Does the patient have a stroke diagnosis?: No
[2023-10-03] MEDS: Montelukast Sodium 10 MG TABLET PO (22:17)
[2023-10-03] MEDS: Magnesium Oxide 400 MG TABLET PO (22:17)
--- NOTE | 2023-10-03 23:16 | PC.NURSE ---
Addendum entered by Lia uSltana RN 10/04/23 06:41: Patient is less agitated and provocative towards staff overnight, though remains resistive to care; pt is still only agreeable to medications though remains particular about their administration (pt only uses the plastic spoon already in her room; seems paranoid/refuses to use a new, similar plastic spoon provided for meds with applesauce). Handoff report given 06:45. Original Note: Assumed care of patient at 19:00. Pt alerts to voice/name though is vague and uncooperative with the majority of this sql report writer's assessment questions. Pt refused physical assessment this evening. No acute issues observed on visual assessment. Pt refused to answer if she is having thoughts of self harm when asked; pt replied You people are ridiculous. I can't leave because it's illegal to go outside . Attempts were made to clarify the meaning of this, as well as to redirect and reorient pt, though this was met with much resistance, and pt was uncooperative and hostile towards this sql report writer. Pt continues with 1:1 sitter in room for pt safety given recent SI statements made by pt the night prior, per chart review. Psych consulted and still needs to see pt. Patient medicated per SEP, took meds whole one at a time in applesauce per pt request without any issues. Denies sob. Breathing observed even and unlabored without distress. Continuous spo2 monitoring in place with active order. Spo2 maintains low to mid 90?s on 2L nc (wears o2 at baseline per chart review, has hx copd). Prn cough syrup given for intermittent strong/hacking non-productive cough with +effect. Droplet precautions continue for Flu. Bruising observed to BUE. Reported DTI to coccyx. Foam noted as pt laying on side, appears c/d/i. Pt would not let sql report writer remove socks at this time to assess heels. Elevated on pillows. Will attempt to reassess later. Pt resting in bed at this time. Bed alarm on and safety measures in place. Call peters within reach. Hourly purposeful rounding in place. Plan of care continues.
[2023-10-04] VITALS (10 sets, daily range): BP systolic 153–170; BP diastolic 57–80; PULSE 61–97; RESP 17–20; TEMP 36.2–36.6; O2SAT 78–96
[2023-10-04] MEDS: Albuterol/Iprat 2.5/0.5MG 3 ML AMPUL.NEB INHALE ×5 (00:12→18:53)
[2023-10-04] MEDS: Levothyroxine Sodium 75 MCG TABLET PO (06:07)
[2023-10-04 07:24] LABS: Alanine Aminotransferase 26 U/L (0-31); Albumin Level 3.3 g/dL (3.5-5.0); Alkaline Phosphatase 64 U/L (39-117); Anion Gap 14 (12-20); Aspartate Amino Transferase 34 U/L (5-31); Bilirubin Total 0.5 mg/dL (0.0-1.0); Blood Urea Nitrogen 36 mg/dL (9-16); Calcium 8.5 mg/dL (8.4-10.2); Carbon Dioxide 33 mmol/L (22-29); Chloride 94 mmol/L (96-108); Creatinine Clr Calc Pharmacy 29.7; Estimated Glomerular Filt Rate 41; Glucose Fasting 101 mg/dL (60-99); Potassium 3.5 mmol/L (3.3-5.1); Sodium 137 mmol/L (135-145); Total Protein 6.5 g/dL (6.5-8.0)
[2023-10-04 07:45] LABS: Mean Corpuscular HGB Conc 33.3 g/dl (31.0-35.0); Mean Corpuscular Hemoglobin 31.2 pg (27.0-33.0); Mean Corpuscular Volume 93.5 fL (80.0-98.0); Mean Platelet Volume 11.4 fL (9.4-12.3); Platelet Count 212 X10*3/uL (160-400); Red Blood Count 3.53 X10*6/uL (4.20-5.50); Red Cell Distribution Width 12.2 % (11.0-16.0); White Blood Count 15.6 X10*3/uL (4.8-10.8)
[2023-10-04 09:12] LABS: Band Neutrophils Percent 3 % (3-5); Lymphocytes Absolute Manual 1.7 X10*3/uL (1.2-4.9); Lymphocytes Percent Manual 11 % (20-40); Monocytes Absolute Manual 1.6 X10*3/uL (0.1-1.2); Monocytes Percent Manual 10 % (2-11); Neutrophils Absolute Manual 12.3 X10*3/uL (2.0-8.3); Neutrophils Percent Manual 76 % (45-73)
[2023-10-04 09:13] LABS: Platelet Estimate NORMAL (NORMAL); Platelet Morphology Comment NORMAL; RBC Morphology NORMAL
[2023-10-04] MEDS: Gabapentin 300 MG CAPSULE PO ×2 (09:57→20:43)
[2023-10-04] MEDS: hydrALAZINE HCl 25 MG TABLET PO ×3 (09:57→20:44)
[2023-10-04] MEDS: Multivitamin TABLET 1 TAB PO (09:57)
[2023-10-04] MEDS: Aspirin Enteric Coated 81 MG TABLET.DR PO (09:57)
[2023-10-04] MEDS: predniSONE 20 MG TABLET PO (09:57)
[2023-10-04] MEDS: amLODIPine Besylate 5 MG TABLET PO ×2 (09:57→20:44)
--- NOTE | 2023-10-04 10:40 | P.PNNP_ITS ---
Subjective Subjective Date of Service: 10/04/23 Interval history: Events noted; All recent data reviewed Physical Exam 2 Vital Signs: Vital Signs: Last Vital Signs Temp 97.3 F 10/04/23 07:33 Pulse 73 10/04/23 07:39 Resp 18 10/04/23 07:39 BP 170/65 H 10/04/23 07:33 Pulse Ox 93 10/04/23 07:33 O2 Del Method Nasal Cannula 10/04/23 07:33 O2 Flow Rate 2 10/04/23 07:33 Oxygen Flow Rate 5 09/28/23 11:11 BMI result Body Mass Index 24.3 Const: General: comfortable and no acute distress HEENT: Head: Yes normocephalic Mouth: Normal oral and palatal mucosa present Eyes: EOM: EOMs intact bilaterally Neck: Neck: Yes supple Resp: Auscultation: clear to auscultation bilaterally Cardio: Jugular venous distension: no JVD Rate: regular rate GI: Palpation (GI): Soft to palpation Auscultation: normal bowel sounds : General: Yes no CVA tenderness Back/Spine/Pelvis: Back: no CVA tenderness Skin: General skin exam: no rashes or lesions noted Neuro: General: moves all extremities Extrem: General: Yes no pedal edema Objective Data Labs 10/04/23 06:23 10/04/23 06:23 Labs: Laboratory Results - last 24 hr 10/04/23 06:23 WBC 15.6 H RBC 3.53 L Hgb 11.0 L Hct 33.0 L MCV 93.5 MCH 31.2 MCHC 33.3 RDW 12.2 Plt Count 212 MPV 11.4 Immature Gran % (Auto) Cancelled Neut % (Auto) Cancelled Lymph % (Auto) Cancelled [place] % (Auto) Cancelled Eos % (Auto) Cancelled Baso % (Auto) Cancelled Lymph # (Auto) Cancelled [place] # (Auto) Cancelled Eos # (Auto) Cancelled Baso # (Auto) Cancelled Abs Immat Gran (auto) Cancelled Absolute Neuts (auto) Cancelled Absolute Nucleated RBC 0.000 Nucleated RBC % (auto) 0.0 Neutrophils % (Manual) 76 H Band Neutrophils % 3 Lymphocytes % (Manual) 11 L Monocytes % (Manual) 10 Abs Neuts (Manual) 12.3 H Lymphocytes # (Manual) 1.7 Monocytes # (Manual) 1.6 H Platelet Estimate NORMAL Plt Morphology Comment NORMAL RBC Morphology NORMAL Sodium 137 Potassium 3.5 Chloride 94 L Carbon Dioxide 33 H Anion Gap 14 BUN 36 H Creatinine 1.25 Estim Creat Clear Calc 29.7 Estimated GFR 41 Fasting Glucose 101 H Calcium 8.5 D Total Bilirubin 0.5 AST 34 H ALT 26 Alkaline Phosphatase 64 Total Protein 6.5 Albumin 3.3 L Microbiology Microbiology Results: Microbiology 09/28/23 11:55 Blood - Venous Blood Culture - Final No growth after 5 days. 09/28/23 11:20 Blood - Venous Blood Culture - Final No growth after 5 days. 09/28/23 Unknown Urine clean catch - Urine carlos top Urine Culture - Final Klebsiella pneumoniae Proteus mirabilis Procedures Date of Service Date of Service: 10/04/23 Assessment & Plan Assessment and plan (1) RONAK (acute kidney injury): Status: Acute Plan Vane has acute kidney injury due to compromise in renal perfusion with resultant tubular injury- resolved She also received Toradol. No reason to suspect obstructive uropathy, GN or AIN C/W current supportive management for now Shall closely follow-up in the office when D/Brent Progress Note: Quality Stroke Does the patient have a stroke diagnosis?: No
[2023-10-04] MEDS: cefTRIAXone sodium 1 GM in 0.9 % Sodium Chloride 50 ML IV (11:12)
--- NOTE | 2023-10-04 11:47 | MHC.CLN ---
F/U PT WITH INCREASED NUTRITION RISK R/T PRESSURE INJURY PO INTAKE GOOD 75-100% DIET RX: CARDIAC-APPROPRIATE PT RECEIVING ENSURE BID TO PROMOTE WOUND HEALING SUPPLEMENT PROVIDES 700KCALS, 40G PROTEIN WITH 100% ACCEPTANCE MONITOR PO INTAKE AND ENCOURAGE SUPPLEMENT
--- NOTE | 2023-10-04 12:38 | MHC.CM.PN ---
EMR reviewed and per MD rounds, pt is not medically cleared due to pending psych eval.
--- NOTE | 2023-10-04 13:30 | HO.PM.IMPN ---
Subjective Subjective Date of Service: 10/04/23 Interval History: Very irritable + sarcastic. States dyspnea has improved. Coughing. Ambivalent re SI. Review of Systems Review of Systems: Yes all other systems are reviewed and are negative Physical Exam Vital Signs: Vital Signs: Last Vital Signs Temp 97.4 F 10/04/23 11:43 Pulse 91 10/04/23 11:43 Resp 18 10/04/23 11:43 BP 170/70 H 10/04/23 11:43 Pulse Ox 93 10/04/23 11:43 O2 Del Method Nasal Cannula 10/04/23 11:43 O2 Flow Rate 2 10/04/23 11:43 Oxygen Flow Rate 5 09/28/23 11:11 BMI result Body Mass Index 24.3 Gen: in no acute distress HEENT: sclera anicteric, moist mucus membranes Neck: supple Lungs: clear to auscultation bilaterally Heart: regular rate and rhythm, no murmurs Abd: soft, non-tender, non-distended Ext: no edema Skin: warm/well-perfused Neuro: alert and oriented x3, no focal findings Psych: irritable Objective Data Active Medications Acetaminophen (Acetaminophen 325 Mg Tablet) 650 mg PO Q6H PRN PRN Reason: Pain, Mild (Pain Scale 1-3) Last Admin: 10/03/23 23:47 Dose: 650 mg Documented By: JONATHON Albuterol/Ipratropium (Albuterol/Iprat 2.5/0.5mg 3 Ml Ampul.Neb) 3 ml INHALE RQ4H WHILE AWAKE [facility] Last Admin: 10/04/23 11:13 Dose: 3 ml Documented By: EVE Albuterol/Ipratropium (Albuterol/Iprat 2.5/0.5mg 3 Ml Ampul.Neb) 3 ml INHALE RQ4H PRN PRN Reason: Wheezing Last Admin: 10/04/23 00:12 Dose: 3 ml Documented By: MICHAELLE Amlodipine Besylate (Amlodipine Besylate 5 Mg Tablet) 5 mg PO BID [facility]; Protocol Last Admin: 10/04/23 09:57 Dose: 5 mg Documented By: ARCHIE Aspirin (Aspirin Enteric Coated 81 Mg Tablet.) 81 mg PO DAILY [facility] Last Admin: 10/04/23 09:57 Dose: 81 mg Documented By: ARCHIE Docusate Sodium (Docusate Sodium 100 Mg Capsule) 100 mg PO DAILY PRN PRN Reason: Constipation Last Admin: 10/03/23 07:52 Dose: 100 mg Documented By: SHAKIRA Enoxaparin Sodium (Enoxaparin Sodium 30 Mg/0.3 Ml Syringe) 30 mg SUBCUT Q24H [facility] Last Admin: 10/03/23 16:26 Dose: 30 mg Documented By: SHAKIRA Gabapentin (Gabapentin 300 Mg Capsule) 300 mg PO BID [facility] Last Admin: 10/04/23 09:57 Dose: 300 mg Documented By: ARCHIE Guaifenesin/Dextromethorphan (Guaifenesin Dm 200/20/10 Ml 10 Ml Syrup) 10 ml PO Q4H PRN PRN Reason: Cough Last Admin: 10/03/23 22:17 Dose: 10 ml Documented By: JONATHON Hydralazine HCl (Hydralazine Hcl 25 Mg Tablet) 25 mg PO TID [facility]; Protocol Last Admin: 10/04/23 09:57 Dose: 25 mg Documented By: ARCHIE Ceftriaxone Sodium 1 gm/ (Sodium Chloride) 50 mls @ 100 mls/hr IV Q24H [facility] Last Infusion: 10/04/23 11:54 Dose: Infused Documented By: ARCHIE Levothyroxine Sodium (Levothyroxine Sodium 50 Mcg Tablet) 50 mcg PO SUTUTHSA@0630 [facility] Last Admin: 10/03/23 05:51 Dose: 50 mcg Documented By: BRADY Levothyroxine Sodium (Levothyroxine Sodium 75 Mcg Tablet) 75 mcg PO MOWEFR@0630 [facility] Last Admin: 10/04/23 06:07 Dose: 75 mcg Documented By: JONATHON Magnesium Oxide (Magnesium Oxide 400 Mg Tablet) 400 mg PO BEDTIME [facility] Last Admin: 10/03/23 22:17 Dose: 400 mg Documented By: OJNATHON Melatonin (Melatonin 3 Mg Tablet) 6 mg PO BEDTIME PRN PRN Reason: Insomnia Last Admin: 10/03/23 22:17 Dose: 6 mg Documented By: JONATHON Montelukast Sodium (Montelukast Sodium 10 Mg Tablet) 10 mg PO BEDTIME [facility] Last Admin: 10/03/23 22:17 Dose: 10 mg Documented By: JONATHON Multivitamins/Vitamin C (Multivitamin Tablet) 1 tab PO DAILY [facility] Last Admin: 10/04/23 09:57 Dose: 1 tab Documented By: ARCHIE Ondansetron HCl (Ondansetron Hcl 4 Mg/2 Ml Vial) 4 mg IVPUSH Q8H PRN PRN Reason: Nausea and Vomiting Prednisone (Prednisone 20 Mg Tablet) 20 mg PO DAILY [facility] Last Admin: 10/04/23 09:57 Dose: 20 mg Documented By: ARCHIE Sodium Chloride (0.9 % Sodium Chloride Flush 3 Ml Syringe) 3 ml IVFLUSH QSHIFT [facility] Last Admin: 10/04/23 07:40 Dose: Not Given Documented By: ARCHIE Non-Admin Reason: See Note Labs 10/04/23 06:23 10/04/23 06:23 Labs: Laboratory Results - last 24 hr 10/04/23 06:23 MCV 93.5 MCH 31.2 MCHC 33.3 RDW 12.2 Plt Count 212 MPV 11.4 Immature Gran % (Auto) Cancelled Neut % (Auto) Cancelled Lymph % (Auto) Cancelled [place] % (Auto) Cancelled Eos % (Auto) Cancelled Baso % (Auto) Cancelled Lymph # (Auto) Cancelled [place] # (Auto) Cancelled Eos # (Auto) Cancelled Baso # (Auto) Cancelled Abs Immat Gran (auto) Cancelled Absolute Neuts (auto) Cancelled Absolute Nucleated RBC 0.000 Nucleated RBC % (auto) 0.0 Neutrophils % (Manual) 76 H Band Neutrophils % 3 Lymphocytes % (Manual) 11 L Monocytes % (Manual) 10 Abs Neuts (Manual) 12.3 H Lymphocytes # (Manual) 1.7 Monocytes # (Manual) 1.6 H Platelet Estimate NORMAL Plt Morphology Comment NORMAL RBC Morphology NORMAL Anion Gap 14 Estim Creat Clear Calc 29.7 Estimated GFR 41 Fasting Glucose 101 H Calcium 8.5 D Total Bilirubin 0.5 AST 34 H ALT 26 Alkaline Phosphatase 64 Total Protein 6.5 Albumin 3.3 L Microbiology Microbiology Results: Microbiology 09/28/23 11:55 Blood Culture - Final Blood - Venous No growth after 5 days. 09/28/23 11:20 Blood Culture - Final Blood - Venous No growth after 5 days. Assessment and Plan (1) Acute hypoxic respiratory failure: Status: Acute (2) UTI (urinary tract infection): Status: Acute Plan d7 88yo F with COPD on 3L O2, HTN, HLD, HFpEF, pAF not on AC, hx DC 5 yr ago, hypothyroidism presented to ED from [facility] for lethargy + dyspnea admitted for encephalopathy due to influenza + UTI with sepsis acute/chronic hypoxic resp failure due to influenza A + COPD exacerbation - completed oseltamivir x5d - continue prednisone taper, nebs - weaned back to home O2 acute encephalopathy due to infection - resolved sepsis due to UTI - UCx grew Klebsiella R to ampicillin + I to nitrofurantoin PLUS Proteus R to nitrofurantoin - ceftriaxone 09/28-10/05 RONAK/CKD3 - SCr back at baseline after IV fluids; RONAK was due to ATN suicidal ideation - sitter, Psych consult requested by Dr Fuller 10/02/23 HTN - continue hydralazine + amlodipine hypothyroidism - continue LT4 VTE ppx - LMWH dispo - return to [facility] but awaiting psychiatry evaluation In my clinical judgment, the patient requires continued inpatient hospitalization for the following reasons: SI Total time managing care of this patient today: 35 minutes. Quality Stroke Does the patient have a stroke diagnosis?: No VTE Prior VTE?: No VTE Risk Level:: Medical - moderate - high VTE Device Contraindication: Treatment Not Indicated VTE Drug Contraindication: N/A - Med Ordered
[2023-10-04] MEDS: Enoxaparin Sodium 30 MG/0.3 ML SYRINGE SUBCUT (15:01)
[2023-10-04] MEDS: Acetaminophen 325 MG TABLET 650 MG PO ×2 (16:17→22:39)
[2023-10-04] MEDS: Montelukast Sodium 10 MG TABLET PO (20:43)
[2023-10-04] MEDS: 0.9 % Sodium Chloride Flush 3 ML SYRINGE IVFLUSH (20:44)
[2023-10-04] MEDS: Magnesium Oxide 400 MG TABLET PO (20:44)
[2023-10-04] MEDS: Melatonin 3 MG TABLET 6 MG PO (20:44)
[2023-10-04] MEDS: guaiFENesin DM 200/20/10 ML 10 ML SYRUP PO (22:41)
[2023-10-05 04:00] VITALS: BP 174/80; PULSE 93; RESP 18; TEMP 36.1; O2SAT 92
[2023-10-05] MEDS: Levothyroxine Sodium 50 MCG TABLET PO (06:05)
[2023-10-05 07:13] LABS: Hematocrit 34.2 % (37.0-47.0); Hemoglobin 11.3 g/dl (12.0-16.0); Platelet Count 226 X10*3/uL (160-400); Red Blood Count 3.64 X10*6/uL (4.20-5.50); Red Cell Distribution Width 12.2 % (11.0-16.0); White Blood Count 14.5 X10*3/uL (4.8-10.8)
[2023-10-05 07:14] LABS: Mean Platelet Volume 11.1 fL (9.4-12.3); NRBC Pct Auto 0.1 /100WBC (0.0-0.2)
[2023-10-05 07:20] LABS: Alanine Aminotransferase 27 U/L (0-31); Albumin Level 3.4 g/dL (3.5-5.0); Alkaline Phosphatase 67 U/L (39-117); Anion Gap 15 (12-20); Aspartate Amino Transferase 38 U/L (5-31); Bilirubin Total 0.6 mg/dL (0.0-1.0); Blood Urea Nitrogen 30 mg/dL (9-16); Calcium 8.8 mg/dL (8.4-10.2); Carbon Dioxide 33 mmol/L (22-29); Chloride 94 mmol/L (96-108); Creatinine Clr Calc Pharmacy 42.6; Estimated Glomerular Filt Rate > 60; Glucose Fasting 106 mg/dL (60-99); Potassium 3.5 mmol/L (3.3-5.1); Sodium 138 mmol/L (135-145); Total Protein 6.7 g/dL (6.5-8.0)
[2023-10-05 07:32] VITALS: BP 158/84; PULSE 82; RESP 16; TEMP 36.5; O2SAT 93
[2023-10-05 07:58] LABS: Band Neutrophils Percent 7 % (3-5); Eosinophils Absolute Manual 0.1 X10*3/uL (0.0-0.4); Eosinophils Percent Manual 1 % (0-4); Lymphocytes Absolute Manual 1.2 X10*3/uL (1.2-4.9); Lymphocytes Percent Manual 8 % (20-40); Metamyelocytes Absolute 0.4 X10*3/uL; Metamyelocytes Percent 3 %; Monocytes Absolute Manual 1.3 X10*3/uL (0.1-1.2); Monocytes Percent Manual 9 % (2-11); Myelocytes Absolute 0.3 X10*/uL; Myelocytes Percent 2 %; Neutrophils Absolute Manual 11.2 X10*3/uL (2.0-8.3); Neutrophils Percent Manual 70 % (45-73)
[2023-10-05 07:59] LABS: RBC Morphology NORMAL
[2023-10-05 08:00] LABS: Platelet Estimate NORMAL (NORMAL); Platelet Morphology Comment NORMAL
[2023-10-05] MEDS: hydrALAZINE HCl 25 MG TABLET PO (08:10)
[2023-10-05] MEDS: Gabapentin 300 MG CAPSULE PO (08:10)
[2023-10-05] MEDS: amLODIPine Besylate 5 MG TABLET PO (08:10)
[2023-10-05] MEDS: Multivitamin TABLET 1 TAB PO (08:10)
[2023-10-05] MEDS: Acetaminophen 325 MG TABLET 650 MG PO (08:10)
[2023-10-05] MEDS: Aspirin Enteric Coated 81 MG TABLET.DR PO (08:10)
[2023-10-05] MEDS: predniSONE 20 MG TABLET PO (08:10)
[2023-10-05] MEDS: 0.9 % Sodium Chloride Flush 3 ML SYRINGE IVFLUSH (08:11)
--- NOTE | 2023-10-05 08:28 | PM.PSYCN ---
History of Present Illness Date of Service: 10/04/23 Chief Complaint: Flu+, hypoxia, UTI Reason for Consult: SI Sources of Information: patient interviewed, chart reviewed and crisis/core team assessment reviewed HPI Narrative: Mrs. Salinas is a 88 year-old woman who was admitted for acute on chronic hypoxia. Pt resides at SNF. She apparently made comment about not wanting to be alive anymore the night of 10/02- no clear documentation from nursing or provider about pt's statement. Pt seen in her room. She has a sitter. She is lying down in bed, resting comfortably. Pt somewhat confused and guarded after this check writer salesperson explained that her attending had asked psych team to assess her. She reports she has no recollection about making any suicidal statements. She denies symptoms of depression or anxiety. When asked about where she resides, she states oh you just throw me a curl ball. She reports she has been residing at a SNF but does not recall the name. This check writer salesperson reminded her that the name is [facility]. She continued to denied suicidal ideation. She also states I might have said it while I was asleep. [facility] Medical History (Updated 10/05/23 @ 08:37 by Antonia Ramos) Myocardial infarction Hypothyroidism Hyperlipidemia COPD (chronic obstructive pulmonary disease) HTN (hypertension) PAF (paroxysmal atrial fibrillation) Diagnostics Vital Signs (24Hr): Vital Signs - 24 hr 10/04/23 11:16 10/04/23 11:43 10/04/23 15:15 Temperature 97.4 F Pulse Rate 87 91 94 Respiratory Rate 18 18 18 Blood Pressure 170/70 H Pulse Oximetry 93 Oxygen Delivery Method Nasal Cannula Oxygen Flow Rate 2 10/04/23 15:15 10/04/23 18:55 10/04/23 19:12 Temperature 97.9 F 97.2 F Pulse Rate 90 97 80 Respiratory Rate 20 18 20 Blood Pressure 166/79 H 160/80 H Pulse Oximetry 90 L 96 Oxygen Delivery Method Nasal Cannula Nasal Cannula Oxygen Flow Rate 2 2 10/04/23 23:55 10/05/23 04:00 10/05/23 07:32 Temperature 97.9 F 97.0 F 97.7 F Pulse Rate 82 93 82 Respiratory Rate 18 18 16 Blood Pressure 158/64 H 174/80 H 158/84 H Pulse Oximetry 94 92 93 Oxygen Delivery Method Nasal Cannula Nasal Cannula Nasal Cannula Oxygen Flow Rate 2 2 2 BMI result Body Mass Index 24.3 Labs 10/05/23 06:52 10/05/23 06:52 Labs: Laboratory Results - last 48 hr 10/04/23 10/05/23 06:23 06:52 WBC 15.6 H 14.5 H RBC 3.53 L 3.64 L Hgb 11.0 L 11.3 L Hct 33.0 L 34.2 L MCV 93.5 94.0 MCH 31.2 31.0 MCHC 33.3 33.0 RDW 12.2 12.2 Plt Count 212 226 MPV 11.4 11.1 Immature Gran % (Auto) Cancelled Cancelled Neut % (Auto) Cancelled Cancelled Lymph % (Auto) Cancelled Cancelled [place] % (Auto) Cancelled Cancelled Eos % (Auto) Cancelled Cancelled Baso % (Auto) Cancelled Cancelled Lymph # (Auto) Cancelled Cancelled [place] # (Auto) Cancelled Cancelled Eos # (Auto) Cancelled Cancelled Baso # (Auto) Cancelled Cancelled Abs Immat Gran (auto) Cancelled Cancelled Absolute Neuts (auto) Cancelled Cancelled Absolute Nucleated RBC 0.000 0.020 H Nucleated RBC % (auto) 0.0 0.1 Neutrophils % (Manual) 76 H 70 Band Neutrophils % 3 7 H Lymphocytes % (Manual) 11 L 8 L Monocytes % (Manual) 10 9 Eosinophils % (Manual) 1 Metamyelocytes % 3 Myelocytes % 2 Abs Neuts (Manual) 12.3 H 11.2 H Lymphocytes # (Manual) 1.7 1.2 Monocytes # (Manual) 1.6 H 1.3 H Eosinophils # (Manual) 0.1 Metamyelocytes # 0.4 Myelocytes # 0.3 Platelet Estimate NORMAL NORMAL Plt Morphology Comment NORMAL NORMAL RBC Morphology NORMAL NORMAL Sodium 137 138 Potassium 3.5 3.5 Chloride 94 L 94 L Carbon Dioxide 33 H 33 H Anion Gap 14 15 BUN 36 H 30 H Creatinine 1.25 0.87 Estim Creat Clear Calc 29.7 42.6 Estimated GFR 41 > 60 Fasting Glucose 101 H 106 H Calcium 8.5 D 8.8 Total Bilirubin 0.5 0.6 AST 34 H 38 H ALT 26 27 Alkaline Phosphatase 64 67 Total Protein 6.5 6.7 Albumin 3.3 L 3.4 L Imaging Radiology Impressions: ITS Impressions Chest X-Ray 09/28/23 10:54 IMPRESSION: No acute intrathoracic disease. Emphysema. Chest X-Ray 10/03/23 01:34 IMPRESSION: Possible mild left basilar opacity laterally and trace left pleural effusion, though this could be artifactual due to patient rotation. Otherwise, no acute findings identified. Mental Status Exam Mental Status Exam Narrative: Appearance: wearing hospital gown, fair hygiene, in NAD Behavior: somewhat guarded initially. Psychomotor: no agitation or retardation noted Speech: clear, normal rate/rhythm/volume, spontaneous TP: linear TC: future oriented, feeling well Mood: good Affect: congruent, brightens up SI: none HI: none AH/VH: none Delusions: none Insight/judgment: fair x 2 Memory/cog: alert, oriented to place, month, year. not formally tested Medications Medications Current Medications Acetaminophen (Acetaminophen 325 Mg Tablet) 650 mg PO Q6H PRN PRN Reason: Pain, Mild (Pain Scale 1-3) Last Admin: 10/05/23 08:10 Dose: 650 mg Albuterol/Ipratropium (Albuterol/Iprat 2.5/0.5mg 3 Ml Ampul.Neb) 3 ml INHALE RQ4H WHILE AWAKE [facility] Last Admin: 10/04/23 18:53 Dose: 3 ml Albuterol/Ipratropium (Albuterol/Iprat 2.5/0.5mg 3 Ml Ampul.Neb) 3 ml INHALE RQ4H PRN PRN Reason: Wheezing Last Admin: 10/04/23 00:12 Dose: 3 ml Amlodipine Besylate (Amlodipine Besylate 5 Mg Tablet) 5 mg PO BID [facility]; Protocol Last Admin: 10/05/23 08:10 Dose: 5 mg Aspirin (Aspirin Enteric Coated 81 Mg Tablet.) 81 mg PO DAILY [facility] Last Admin: 10/05/23 08:10 Dose: 81 mg Docusate Sodium (Docusate Sodium 100 Mg Capsule) 100 mg PO DAILY PRN PRN Reason: Constipation Last Admin: 10/03/23 07:52 Dose: 100 mg Enoxaparin Sodium (Enoxaparin Sodium 30 Mg/0.3 Ml Syringe) 30 mg SUBCUT Q24H [facility] Last Admin: 10/04/23 15:01 Dose: 30 mg Gabapentin (Gabapentin 300 Mg Capsule) 300 mg PO BID [facility] Last Admin: 10/05/23 08:10 Dose: 300 mg Guaifenesin/Dextromethorphan (Guaifenesin Dm 200/20/10 Ml 10 Ml Syrup) 10 ml PO Q4H PRN PRN Reason: Cough Last Admin: 10/04/23 22:41 Dose: 10 ml Hydralazine HCl (Hydralazine Hcl 25 Mg Tablet) 25 mg PO TID [facility]; Protocol Last Admin: 10/05/23 08:10 Dose: 25 mg Ceftriaxone Sodium 1 gm/ (Sodium Chloride) 50 mls @ 100 mls/hr IV Q24H [facility] Last Infusion: 10/04/23 11:54 Dose: Infused Levothyroxine Sodium (Levothyroxine Sodium 50 Mcg Tablet) 50 mcg PO SUTUTHSA@0630 [facility] Last Admin: 10/05/23 06:05 Dose: 50 mcg Levothyroxine Sodium (Levothyroxine Sodium 75 Mcg Tablet) 75 mcg PO MOWEFR@0630 [facility] Last Admin: 10/04/23 06:07 Dose: 75 mcg Magnesium Oxide (Magnesium Oxide 400 Mg Tablet) 400 mg PO BEDTIME [facility] Last Admin: 10/04/23 20:44 Dose: 400 mg Melatonin (Melatonin 3 Mg Tablet) 6 mg PO BEDTIME PRN PRN Reason: Insomnia Last Admin: 10/04/23 20:44 Dose: 6 mg Montelukast Sodium (Montelukast Sodium 10 Mg Tablet) 10 mg PO BEDTIME [facility] Last Admin: 10/04/23 20:43 Dose: 10 mg Multivitamins/Vitamin C (Multivitamin Tablet) 1 tab PO DAILY [facility] Last Admin: 10/05/23 08:10 Dose: 1 tab Ondansetron HCl (Ondansetron Hcl 4 Mg/2 Ml Vial) 4 mg IVPUSH Q8H PRN PRN Reason: Nausea and Vomiting Prednisone (Prednisone 20 Mg Tablet) 20 mg PO DAILY [facility] Last Admin: 10/05/23 08:10 Dose: 20 mg Sodium Chloride (0.9 % Sodium Chloride Flush 3 Ml Syringe) 3 ml IVFLUSH QSHIFT [facility] Last Admin: 10/05/23 08:11 Dose: 3 ml Trolamine Salicylate (Trolamine Salicylate 10 % Cream 85 Gm Tube) 1 appl TOPICAL TID PRN; Protocol PRN Reason: arthritis pain Allergies Allergies Allergy/AdvReac Type Severity Reaction Status Date / Time adhesive tape [Adhesive Tape] Allergy Unknown RASH Verified 12/20/22 16:50 codeine [Codeine] Allergy Unknown SWELLING Verified 12/20/22 16:50 Iodinated Contrast Media Allergy Unknown UNKNOWN Verified 12/20/22 16:50 [IV Dye, Iodine Containing] iodine [Iodine] Allergy Unknown UNKNOWN Verified 12/20/22 16:50 oxycodone [Percocet] Allergy Unknown unknown Verified 12/20/22 16:50 papaya [Papaya] Allergy Unknown HIVES Verified 12/20/22 16:50 pineapple [Pineapple] Allergy Unknown HIVES Verified 12/20/22 16:50 strawberry [[place]] Allergy Unknown HIVES Verified 12/20/22 16:50 Codeine Phosphate Allergy Unknown unknown Uncoded 11/30/20 15:34 Novocain Allergy Unknown unknown Uncoded 11/30/20 15:34 From Vicodin AdvReac Unknown NAUSEA & Uncoded 11/30/20 15:34 VOMITING Assessment & Plan Assessment & Plan (1) Mood change: Status: Acute Code(s): R45.86 - Emotional lability Plan Mrs. Salinas is a 88 year-old woman admitted for acute on chronic hypoxia. Pt apparently reported suicidal ideation the night of 10/02. Today, pt reports she does not remember making this statement. She denies depression or anxious mood. She denies SI/HI. No need for further intervention. Pt appears with brighter, non labile affect. And although she is fully oriented cognitive impairments can't be ruled out. Outpatient providers can do MOCA. PLAN 1. d/c sitter 2. no need for inpt level of care for psychiatric stabilization. Total time managing care of this patient today ____ minutes.
[2023-10-05] MEDS: Albuterol/Iprat 2.5/0.5MG 3 ML AMPUL.NEB INHALE (08:44)
[2023-10-05 08:46] VITALS: PULSE 92; RESP 19; O2SAT 92
--- NOTE | 2023-10-05 10:47 | PM.PNNEP ---
Subjective Subjective Date of Service: 10/05/23 Interval history: Events noted. Physical Exam Vital Signs: Vital Signs: Last Vital Signs Temp 97.7 F 10/05/23 07:32 Pulse 92 10/05/23 08:46 Resp 19 10/05/23 08:46 BP 158/84 H 10/05/23 07:32 Pulse Ox 93 10/05/23 07:32 O2 Del Method Nasal Cannula 10/05/23 07:32 O2 Flow Rate 2 10/05/23 07:32 Oxygen Flow Rate 5 09/28/23 11:11 BMI result Body Mass Index 24.3 Const: General: comfortable and no acute distress HEENT: Head: Yes normocephalic Mouth: Normal oral and palatal mucosa present Eyes: EOM: EOMs intact bilaterally Neck: Neck: Yes supple Resp: Auscultation: diminished lung sounds Cardio: Jugular venous distension: no JVD Rate: regular rate GI: Palpation (GI): Soft to palpation Auscultation: normal bowel sounds : General: Yes no CVA tenderness Back/Spine/Pelvis: Back: no CVA tenderness Skin: General skin exam: no rashes or lesions noted Neuro: General: moves all extremities Extrem: General: Yes no pedal edema Objective Data Labs 10/05/23 06:52 10/05/23 06:52 Labs: Laboratory Results - last 24 hr 10/05/23 06:52 WBC 14.5 H RBC 3.64 L Hgb 11.3 L Hct 34.2 L MCV 94.0 MCH 31.0 MCHC 33.0 RDW 12.2 Plt Count 226 MPV 11.1 Immature Gran % (Auto) Cancelled Neut % (Auto) Cancelled Lymph % (Auto) Cancelled [place] % (Auto) Cancelled Eos % (Auto) Cancelled Baso % (Auto) Cancelled Lymph # (Auto) Cancelled [place] # (Auto) Cancelled Eos # (Auto) Cancelled Baso # (Auto) Cancelled Abs Immat Gran (auto) Cancelled Absolute Neuts (auto) Cancelled Absolute Nucleated RBC 0.020 H Nucleated RBC % (auto) 0.1 Neutrophils % (Manual) 70 Band Neutrophils % 7 H Lymphocytes % (Manual) 8 L Monocytes % (Manual) 9 Eosinophils % (Manual) 1 Metamyelocytes % 3 Myelocytes % 2 Abs Neuts (Manual) 11.2 H Lymphocytes # (Manual) 1.2 Monocytes # (Manual) 1.3 H Eosinophils # (Manual) 0.1 Metamyelocytes # 0.4 Myelocytes # 0.3 Platelet Estimate NORMAL Plt Morphology Comment NORMAL RBC Morphology NORMAL Sodium 138 Potassium 3.5 Chloride 94 L Carbon Dioxide 33 H Anion Gap 15 BUN 30 H Creatinine 0.87 Estim Creat Clear Calc 42.6 Estimated GFR > 60 Fasting Glucose 106 H Calcium 8.8 Total Bilirubin 0.6 AST 38 H ALT 27 Alkaline Phosphatase 67 Total Protein 6.7 Albumin 3.4 L Microbiology Microbiology Results: Microbiology 09/28/23 11:55 Blood - Venous Blood Culture - Final No growth after 5 days. 09/28/23 11:20 Blood - Venous Blood Culture - Final No growth after 5 days. 09/28/23 Unknown Urine clean catch - Urine carlos top Urine Culture - Final Klebsiella pneumoniae Proteus mirabilis Procedures Date of Service Date of Service: 10/05/23 Assessment & Plan Assessment and plan (1) RONAK (acute kidney injury): Status: Acute Assessment and Plan: Vane has acute kidney injury due to compromise in renal perfusion with resultant tubular injury She also received Toradol. No reason to suspect obstructive uropathy, GN or AIN C3, C4 ANCAs are negative. Serum creatinine is gradually trending down - and has reached baseline. No further NSAIDs . Keep intake more than output She will stop following activity. Please re-consult if needed Time Spent With Patient Time: Total time managing care of this patient today ____ minutes. Progress Note: Quality Stroke Does the patient have a stroke diagnosis?: No
[2023-10-05 11:17] VITALS: BP 162/80; PULSE 78; RESP 18; TEMP 36.2; O2SAT 96
--- NOTE | 2023-10-05 11:43 | P.DS_ITS ---
DS: Providers Provider Date of Service: 10/05/23 Date of admission: 09/28/23 15:08 Date of discharge: 10/05/23 Primary care physician: Jayjay Sood MD Consults: 09/28/23 21:38 Consult to Wound Care Routine Reason for consultation: redness to buttocks, BLE 09/29/23 08:22 Consult to Nephrology Routine Consulting Provider[place] [facility] Reason for consultation: ronak Has provider been notified: No 10/02/23 22:05 Consult to Psychiatry Routine Consulting Provider: Psych Covering Reason for consultation: SI DS: Diagnosis Discharge Diagnosis (1) Acute hypoxic respiratory failure: Status: Acute (2) UTI (urinary tract infection): Status: Acute (3) Influenza A: Status: Acute (4) COPD exacerbation: Status: Acute (5) Encephalopathy due to infection: Status: Acute (6) Acute kidney injury superimposed on CKD: Status: Acute DS: Summary Hospital Course Hospital Course: From the history and physical by the admitting hospitalist, BANG Pelletier, 09/28/23: Pt is an 88-year-old female with a PMH significant for?COPD chronically on 3L home O2, HTN, HLD, HFpEF, paroxysmal AFib not on anticoagulation, hx of SD around 5 years ago, and hypothyroidism who presents to the ED from [facility]?for evaluation of increased lethargy, SOB, and difficulty breathing. Patient was also noted to be hypoxic on her chronic 3L NC. EMS was called and noted patient still hypoxic at 88% on 6 L. Pt was also complains of intermittent left- sided chest pain, butunable to further clarify any characteristics, just saying it felt like ?pain . Currently no longer complaining of chest pain or SOB. Continues to experience cough productive of yellow sputum and generalized weakness. Of note, pt normally lives at home but fell two weeks ago and placed in short term rehab for PT. Granddaughter at bedside reports pt is normally lively, animated, and AOx4. Does not carry any diagnosis of dementia or mental decline. In the ED pt was febrile up to 103.8, tachycardic up to 124, tachypneic up to 30, hypertensive up to 196/74, and desatting as low as 88% on 5 L NC. Labs were significant for testing positive for influenza a, leukocytosis 11.7, BUN 33, creatinine 1.45, AST 50, initial troponin 43.4 with repeat 65.0. VBG pH 7.51 with bicarb 35. UA positive for UTI. CXR showed emphysema but no acute intrathoracic disease. EKG demonstrated sinus tachycardia 115 with no evidence of significant ST elevations or depressions. Pt was treated with IVF, acetaminophen, Solu-Medrol, Tamiflu, and ceftriaxone. Pt will be admitted to the hospital for treatment further evaluation of acute encephalopathy in the setting of influenza infection and UTI with sepsis. 88yo F with COPD on 3L O2, HTN, HLD, HFpEF, pAF not on AC, hx SD 5 yr ago, and hypothyroidism who presented to ED from [facility] for lethargy + dyspnea. She was admitted for encephalopathy due to influenza + UTI with sepsis. Hospital course by problem: acute/chronic hypoxic respiratory failure due to influenza A + COPD exacerbation - Completed oseltamivir x5d - Treated with prednisone taper to continue on discharge for another 8 days; also given nebulizer treatments - Weaned back to home level of O2 3L acute encephalopathy due to infection with treatment above. - Resolved. Did express some vague SI on 10/02/23 prompting psychiatric consultation but ultimately deemed not to have SI. Consider MOCA evaluation as outpatient to rule out cognitive impairment. sepsis due to UTI - UCx grew Klebsiella R to ampicillin + I to nitrofurantoin PLUS Proteus R to nitrofurantoin. Treated with IV ceftriaxone 09/28-10/03 and discharged on PO cefuroxime for 2 days. RONAK/CKD3 - SCr back at baseline after IV fluids; RONAK was due to ATN HTN - Hydralazine added to amlodipine. She was discharged back to [facility] for STR. Time Attestation Discharge Coordination Time (in mins): 45 Quality: Safe Use of Opioids Does Pt have an Active Cancer Diagnosis on the Problem List?: No Quality: Stroke Does the patient have a stroke diagnosis?: No Physical Exam Vital Signs: Vital Signs: Last Vital Signs Temp 97.1 F 10/05/23 11:17 Pulse 78 10/05/23 11:17 Resp 18 10/05/23 11:17 BP 162/80 H 10/05/23 11:17 Pulse Ox 96 10/05/23 11:17 O2 Del Method Nasal Cannula 10/05/23 11:17 O2 Flow Rate 2 10/05/23 11:17 Oxygen Flow Rate 5 09/28/23 11:11 BMI result Body Mass Index 24.3 Gen: in no acute distress HEENT: sclera anicteric, moist mucus membranes Neck: supple Lungs: clear to auscultation bilaterally Heart: regular rate and rhythm, no murmurs Abd: soft, non-tender, non-distended Ext: no edema Skin: warm/well-perfused Neuro: alert and oriented x3, no focal findings Psych: irritable DS: Data Data Completed and Pending Completed studies during hospitalization [Text1]: Laboratory Results WBC 14.5 X10*3/uL (4.8-10.8) H 10/05/23 06:52 RBC 3.64 X10*6/uL (4.20-5.50) L 10/05/23 06:52 Hgb 11.3 g/dl (12.0-16.0) L 10/05/23 06:52 Hct 34.2 % (37.0-47.0) L 10/05/23 06:52 MCV 94.0 fL (80.0-98.0) 10/05/23 06:52 MCH 31.0 pg (27.0-33.0) 10/05/23 06:52 MCHC 33.0 g/dl (31.0-35.0) 10/05/23 06:52 RDW 12.2 % (11.0-16.0) 10/05/23 06:52 Plt Count 226 X10*3/uL (160-400) 10/05/23 06:52 MPV 11.1 fL (9.4-12.3) 10/05/23 06:52 Immature Gran % (Auto) Cancelled 10/05/23 06:52 Neut % (Auto) Cancelled 10/05/23 06:52 Lymph % (Auto) Cancelled 10/05/23 06:52 [place] % (Auto) Cancelled 10/05/23 06:52 Eos % (Auto) Cancelled 10/05/23 06:52 Baso % (Auto) Cancelled 10/05/23 06:52 Lymph # (Auto) Cancelled 10/05/23 06:52 [place] # (Auto) Cancelled 10/05/23 06:52 Eos # (Auto) Cancelled 10/05/23 06:52 Baso # (Auto) Cancelled 10/05/23 06:52 Abs Immat Gran (auto) Cancelled 10/05/23 06:52 Absolute Neuts (auto) Cancelled 10/05/23 06:52 Absolute Nucleated RBC 0.020 X10*3/uL (0.0-0.012) H 10/05/23 06:52 Nucleated RBC % (auto) 0.1 /100WBC (0.0-0.2) 10/05/23 06:52 Neutrophils % (Manual) 70 % (45-73) 10/05/23 06:52 Band Neutrophils % 7 % (3-5) H 10/05/23 06:52 Lymphocytes % (Manual) 8 % (20-40) L 10/05/23 06:52 Monocytes % (Manual) 9 % (2-11) 10/05/23 06:52 Eosinophils % (Manual) 1 % (0-4) 10/05/23 06:52 Metamyelocytes % 3 % 10/05/23 06:52 Myelocytes % 2 % 10/05/23 06:52 Abs Neuts (Manual) 11.2 X10*3/uL (2.0-8.3) H 10/05/23 06:52 Lymphocytes # (Manual) 1.2 X10*3/uL (1.2-4.9) 10/05/23 06:52 Monocytes # (Manual) 1.3 X10*3/uL (0.1-1.2) H 10/05/23 06:52 Eosinophils # (Manual) 0.1 X10*3/uL (0.0-0.4) 10/05/23 06:52 Metamyelocytes # 0.4 X10*3/uL 10/05/23 06:52 Myelocytes # 0.3 X10*/uL 10/05/23 06:52 Platelet Estimate NORMAL (NORMAL) 10/05/23 06:52 Large Platelets PRESENT 10/03/23 06:28 Plt Morphology Comment NORMAL 10/05/23 06:52 RBC Morphology NORMAL 10/05/23 06:52 Hold Purple Top SEE NOTE 10/02/23 06:46 PT 11.1 SEC (11.1-13.3) 09/28/23 11:20 INR 0.9 (0.9-1.1) 09/28/23 11:20 VBG pH 7.54 (7.32-7.43) H 10/03/23 01:51 VBG pCO2 42 mmHg 10/03/23 01:51 VBG pO2 106 mmHg 10/03/23 01:51 VBG HCO3 36 mmol/L (22-26) H 10/03/23 01:51 VBG O2 Saturation 100.0 % 10/03/23 01:51 VBG Base Excess 12.6 mmol/L 10/03/23 01:51 Sodium 138 mmol/L (135-145) 10/05/23 06:52 Potassium 3.5 mmol/L (3.3-5.1) 10/05/23 06:52 Chloride 94 mmol/L (96-108) L 10/05/23 06:52 Carbon Dioxide 33 mmol/L (22-29) H 10/05/23 06:52 Anion Gap 15 (12-20) 10/05/23 06:52 BUN 30 mg/dL (9-16) H 10/05/23 06:52 Creatinine 0.87 mg/dL (0.5-1.4) 10/05/23 06:52 Estim Creat Clear Calc 42.6 10/05/23 06:52 Estimated GFR > 60 10/05/23 06:52 Random Glucose 145 mg/dL (60-115) H 10/02/23 06:46 Fasting Glucose 106 mg/dL (60-99) H 10/05/23 06:52 Lactic Acid 1.6 mmol/L (0.5-2.0) 09/28/23 11:20 Calcium 8.8 mg/dL (8.4-10.2) 10/05/23 06:52 Magnesium 2.2 mg/dL (1.6-2.6) 09/28/23 11:20 Total Bilirubin 0.6 mg/dL (0.0-1.0) 10/05/23 06:52 Direct Bilirubin 0.2 mg/dL (0.0-0.5) 09/28/23 11:20 AST 38 U/L (5-31) H 10/05/23 06:52 ALT 27 U/L (0-31) 10/05/23 06:52 Alkaline Phosphatase 67 U/L (39-117) 10/05/23 06:52 Ammonia 32 umol/L (13-55) 09/28/23 11:20 Troponin I High Sens 65.4 ng/L (<3.5-17.0) H* 09/28/23 20:56 B-Natriuretic Peptide 58 pg/mL (<100) 09/28/23 11:20 Total Protein 6.7 g/dL (6.5-8.0) 10/05/23 06:52 Albumin 3.4 g/dL (3.5-5.0) L 10/05/23 06:52 Lipase 73 U/L (8-78) 09/28/23 11:20 Procalcitonin 0.16 ng/mL 09/28/23 11:20 TSH 1.63 uIU/mL (0.32-4.0) 09/28/23 11:20 Urine Color Yellow 09/28/23 11:21 Urine Appearance Turbid 09/28/23 11:21 Urine pH 8.5 (5.0-9.0) 09/28/23 11:21 Ur Specific [place] 1.020 (1.005-1.025) 09/28/23 11:21 Urine Protein >=1000 (4+) mg/dL (Neg-Trace) H 09/28/23 11:21 Urine Glucose (UA) Negative mg/dL (Negative) 09/28/23 11:21 Urine Ketones Trace mg/dL (Negative) 09/28/23 11:21 Urine Blood Large (3+) (Negative) H 09/28/23 11:21 Urine Nitrite Positive (Negative) H 09/28/23 11:21 Ur Leukocyte Esterase Large (3+) (Negative) H 09/28/23 11:21 Urine RBC >20 /HPF (0-2) H 09/28/23 11:21 Urine WBC >50 /HPF (0-5) H 09/28/23 11:21 Ur Squamous Epith Cells 3-5 /HPF (0-2) 09/28/23 11:21 Other Crystals Present 09/28/23 11:21 Urine Bacteria 4+ (None Seen) 09/28/23 11:21 Hyaline Casts >20 /LPF (0-2) 09/28/23 11:21 Urine Eosinophils % 0.0 % 10/02/23 05:55 Complement C3 106 mg/dL 09/30/23 05:39 Complement C4 29 mg/dL 09/30/23 05:39 Influenza Type A (PCR) POSITIVE (Negative) A 09/28/23 11:21 Influenza Type B (PCR) NEGATIVE (Negative) 09/28/23 11:21 RSV RNA Qual (PCR) NEGATIVE (Negative) 09/28/23 11:21 SARS-CoV-2 RNA (RT-PCR) NEGATIVE (Negative) 09/28/23 11:21 Impressions Chest X-Ray 10/03/23 01:34 IMPRESSION: Possible mild left basilar opacity laterally and trace left pleural effusion, though this could be artifactual due to patient rotation. Otherwise, no acute findings identified. Discharge Plan Discharge Anticipated Discharge Date/Time: 10/05/23 11:33 Patient Disposition: [facility] Discharge Diagnosis: acute/chronic hypoxic respiratory failure due to influenza A + COPD exacerbation acute encephalopathy due to infection sepsis due to UTI RONAK/CKD3 Referrals: [facility] [Outside] - 1 Week Jayjay Sood MD [Primary Care Provider] - 1 Week Discharge Medications: New ipratropium-albuterol 0.5 mg-3 mg(2.5 mg base)/3 mL Solution For Nebulization 3 ml inhalation RQ4H PRN (Reason: Wheezing) Qty: 1 0RF hydralazine 25 mg Tablet 25 mg PO TID Qty: 90 0RF Protocol: Hold for SBP< HOLD for SBP < : 90 prednisone 10 mg tablet See Rx Instructions .ROUTE .COMPLEX Qty: 10 0RF Rx Instructions: 20 mg daily x 2 days, then 15 mg daily x 2 days, then 10 mg daily x 2 days, then 5 mg daily x 2 days cefuroxime axetil 250 mg tablet 250 mg PO BID Qty: 4 0RF Continued levothyroxine 50 mcg tablet 75 mcg PO MOWEFR@0630 furosemide 20 mg Tablet 60 mg PO DAILY famotidine 20 mg tablet 20 mg PO BID montelukast 10 mg tablet 10 mg PO BEDTIME multivitamin Tablet 1 tab PO DAILY aspirin 81 mg Tablet,Delayed Release (Dr/Ec) 81 mg PO DAILY amlodipine 5 mg tablet 5 mg PO BID levothyroxine 50 mcg tablet 50 mcg PO SUTUTHSA@0630 ipratropium bromide 17 mcg/actuation HFA aerosol inhaler 2 puff inhalation QID PRN (Reason: Shortness Of Breath) gabapentin 300 mg capsule 300 mg PO BID magnesium oxide 400 mg (241.3 mg magnesium) tablet 400 mg PO BEDTIME Discontinued simvastatin 10 mg tablet 10 mg PO DAILY Discharge Orders: Discharge Order (Routine); Ordered 10/05/23 Ordered By: Augie Boyle Diet: Advance to usual diet Activity on Discharge: As tolerated Stand Alone Forms: Patient Portal Discharge page Care Plan Goals: recovery from infections Health Concerns: acute/chronic hypoxic respiratory failure due to influenza A + COPD exacerbation acute encephalopathy due to infection sepsis due to UTI RONAK/CKD3 Plan of Treatment: completed Tamiflu use Duoneb as needed for dyspnea/wheezing take prednisone as follows: 20 mg daily x 2 days, then 15 mg daily x 2 days, then 10 mg daily x 2 days, then 5 mg daily x 2 days take cefuroxime 250 mg twice daily x 2 days add hydralazine 25 mg 3x day for blood pressure control Please follow up with your primary care doctor within 1 week of discharge from rehabilitation. Return to the hospital if you experience recurrent or worsening symptoms. Assessment: See Discharge Summary.
--- NOTE | 2023-10-05 11:53 | MHC.CM.PN ---
Second IMM 10/04. Pt is medically cleared for D/C back to STR at [facility] via BLS/Ganesh at 1pm today. Pt aware, and call placed to pts granddaughter/HCP Kelley to notify, voicemail was left.
[2023-10-05] MEDS: cefTRIAXone sodium 1 GM in 0.9 % Sodium Chloride 50 ML IV (12:43)
== END 2023-10-05 13:34 | disposition skilled nursing facility (03) | DRG 871 ==
LOC: HO.ED 12:49 → HO.EDOVER 15:21 → HO.IMC 19:14
PROVIDERS: Hospitalist; Internal Medicine Nephrology; Student in an Organized Health Care Education/Training Program; Admitting Provider Student in an Organized Health Care Education/Training Program; Emergency Provider Emergency Medicine; PCP Internal Medicine; Visit Provider Family Medicine
DX: A41.9 Sepsis, unspecified organism (principal); G93.41 Metabolic encephalopathy; J96.21 Acute and chronic respiratory failure with hypoxia; N17.0 Acute kidney failure with tubular necrosis; R45.851 Suicidal ideations; I13.0 Hypertensive heart and chronic kidney disease with heart failure and stage 1 through stage 4 chronic kidney disease, or unspecified chronic kidney disease; I50.32 Chronic diastolic (congestive) heart failure; N39.0 Urinary tract infection, site not specified; Z16.11 Resistance to penicillins; Z16.39 Resistance to other specified antimicrobial drug; I25.10 Atherosclerotic heart disease of native coronary artery without angina pectoris; E03.9 Hypothyroidism, unspecified; R45.86 Emotional lability; N18.30 Chronic kidney disease, stage 3 unspecified; B96.1 Klebsiella pneumoniae [K. pneumoniae] as the cause of diseases classified elsewhere; B96.4 Proteus (mirabilis) (morganii) as the cause of diseases classified elsewhere; J10.1 Influenza due to other identified influenza virus with other respiratory manifestations; E78.5 Hyperlipidemia, unspecified; Z20.822 Contact with and (suspected) exposure to COVID-19; Z99.81 Dependence on supplemental oxygen; Z87.891 Personal history of nicotine dependence; Z79.890 Hormone replacement therapy; Z79.82 Long term (current) use of aspirin; Z79.899 Other long term (current) drug therapy
CPT/HCPCS: 0241U; 36415; 71045; 80048; 80053; 80076; 81001; 82140; 82803; 83605; 83690; 83735; 83880; 84145; 84443; 84484; 85007; 85025; 85027; 85610; 85999; 86160; 87040; 87086; 87088; 87186; 92950; 93005; 94640; 99285; J0360; J0696; J1170; J1650; J1885; J2060; J2920; J2930

== ENCOUNTER → 2023-09-28 10:44 | Outpatient (BNV) | payer MEDICARE, MEDICAID, SELFPAY | PROVIDERS: Admitting Provider Student in an Organized Health Care Education/Training Program; Emergency Provider Emergency Medicine; PCP Internal Medicine; Visit Provider Internal Medicine | DX: R00.0 Tachycardia, unspecified (principal) | CPT/HCPCS: 93010 ==

== ENCOUNTER → 2023-09-28 15:08 | Outpatient (BNV) | payer MEDICARE, MEDICAID, SELFPAY | PROVIDERS: Admitting Provider Student in an Organized Health Care Education/Training Program; Emergency Provider Emergency Medicine; PCP Internal Medicine; Visit Provider Internal Medicine Nephrology | DX: N17.0 Acute kidney failure with tubular necrosis (principal) | CPT/HCPCS: 99223; 99231; 99232 ==

== ENCOUNTER → 2023-09-28 15:08 | Outpatient (BNV) | payer MEDICARE, MEDICAID, SELFPAY | PROVIDERS: Admitting Provider Student in an Organized Health Care Education/Training Program; Emergency Provider Emergency Medicine; PCP Internal Medicine; Visit Provider Student in an Organized Health Care Education/Training Program | DX: J96.01 Acute respiratory failure with hypoxia (principal); N39.0 Urinary tract infection, site not specified; J10.1 Influenza due to other identified influenza virus with other respiratory manifestations; J44.1 Chronic obstructive pulmonary disease with (acute) exacerbation; G93.49 Other encephalopathy; B99.9 Unspecified infectious disease; N17.9 Acute kidney failure, unspecified; N18.9 Chronic kidney disease, unspecified | CPT/HCPCS: 99223; 99232; 99233; 99239 ==

== ENCOUNTER → 2023-09-28 15:08 | Outpatient (BNV) | payer MEDICARE, MEDICAID, SELFPAY | PROVIDERS: Admitting Provider Student in an Organized Health Care Education/Training Program; Emergency Provider Emergency Medicine; PCP Internal Medicine; Visit Provider Social Worker | DX: F29 Unspecified psychosis not due to a substance or known physiological condition (principal); R45.86 Emotional lability | CPT/HCPCS: 99232 ==

== ENCOUNTER 2023-10-14 22:30 | Emergency (ER) | payer OTHER, MEDICARE, MEDICAID, SELFPAY ==
--- NOTE | 2023-10-14 | ECG_ITS ---
Test Reason : chest pain Blood Pressure : / mmHG Vent. Rate : 098 BPM Atrial Rate : 098 BPM P-R Int : 170 ms QRS Dur : 076 ms QT Int : 356 ms P-R-T Axes : 074 006 170 degrees QTc Int : 454 ms Sinus rhythm with Premature atrial complexes Possible Inferior infarct , age undetermined Anteroseptal infarct (cited on or before 28-SEP-2023) Abnormal ECG When compared with ECG of 28-SEP-2023 23:57, Borderline criteria for Inferior infarct are now Present Non-specific change in ST segment in Inferior leads Nonspecific T wave abnormality now evident in Inferior leads Referred By: Generic ED Physician Electronically Signed By:KELLY KHAN MD
--- NOTE | ~2023-10-14 | XR_ITS ---
EXAMINATION: XR CHEST CLINICAL INFORMATION: Chest pain COMPARISON: 10/03/2023 TECHNIQUE: Frontal view of the chest was obtained. FINDINGS: Heart is enlarged. No acute vascular congestion. Chronic emphysematous and fibrotic changes seen. Old healed right-sided rib fractures are present. No acute pulmonary process. XR/XR chest 1V IMPRESSION: Cardiomegaly. No acute pulmonary process.
[2023-10-14 22:57] VITALS: BP 119/76; BP 136/71; PULSE 92; PULSE 97; RESP 15; TEMP 36.8; O2SAT 91; O2SAT 96; BMI 23.8
--- NOTE | 2023-10-15 00:30 | ED_ITS ---
HPI - Chest Pain General Chief Complaint: Chest Pain Stated Complaint: [facility], chest pain, alert to baseline Time Seen by Provider: 10/14/23 22:49 Source: patient, RN notes reviewed and old records reviewed Mode of arrival: EMS Limitations: no limitations History of Present Illness HPI narrative: 88-year-old female with past medical history significant for chronic kidney disease, COPD, paroxysmal AFib presents for evaluation of left-sided chest pain Patient reports that she had pain starting ?in my left breast. ? Denies any radiation of the pain ?it stays my breast. ? The pain has been constant since it started about an hour prior to coming to the hospital She denies any shortness of breath. Denies any abdominal pain, nausea vomiting Related Data Home Medications ?Medication ?Instructions ?Recorded ?Confirmed gabapentin 300 mg capsule 300 mg PO BID Pain 07/13/20 09/28/23 ipratropium bromide 17 2 puff inhalation QID PRN 07/13/20 09/28/23 mcg/actuation HFA aerosol inhaler Shortness Of Breath levothyroxine 50 mcg tablet 50 mcg PO SUTUTHSA@0630 07/13/20 09/28/23 magnesium oxide 400 mg (241.3 mg 400 mg PO BEDTIME 07/13/20 09/28/23 magnesium) tablet levothyroxine 50 mcg tablet 75 mcg PO MOWEFR@0630 05/07/21 09/28/23 aspirin 81 mg tablet,delayed 81 mg PO DAILY 12/21/22 09/28/23 release famotidine 20 mg tablet 20 mg PO BID 12/21/22 09/28/23 montelukast 10 mg tablet 10 mg PO BEDTIME 12/21/22 09/28/23 multivitamin 1 tab PO DAILY 12/21/22 09/28/23 amlodipine 5 mg tablet 5 mg PO BID 09/12/23 09/28/23 furosemide 20 mg tablet 60 mg PO DAILY 09/28/23 09/28/23 Previous Rx's ?Medication ?Instructions ?Recorded cefuroxime axetil 250 mg tablet 250 mg PO BID #4 tabs 10/05/23 hydralazine 25 mg tablet 25 mg PO TID #90 tabs 10/05/23 ipratropium 0.5 mg-albuterol 3 mg 3 ml inhalation RQ4H PRN Wheezing 10/05/23 (2.5 mg base)/3 mL nebulization #1 mL soln prednisone 10 mg tablet See Rx Instructions .Route 10/05/23 .COMPLEX #10 tabs Allergies Allergy/AdvReac Type Severity Reaction Status Date / Time adhesive tape [Adhesive Tape] Allergy Unknown RASH Verified 10/14/23 23:00 codeine [Codeine] Allergy Unknown SWELLING Verified 10/14/23 23:00 Iodinated Contrast Media Allergy Unknown UNKNOWN Verified 10/14/23 23:00 [IV Dye, Iodine Containing] iodine [Iodine] Allergy Unknown UNKNOWN Verified 10/14/23 23:00 oxycodone [Percocet] Allergy Unknown unknown Verified 10/14/23 23:00 papaya [Papaya] Allergy Unknown HIVES Verified 10/14/23 23:00 pineapple [Pineapple] Allergy Unknown HIVES Verified 10/14/23 23:00 strawberry [Manlius] Allergy Unknown HIVES Verified 10/14/23 23:00 Codeine Phosphate Allergy Unknown unknown Uncoded 10/14/23 23:00 Novocain Allergy Unknown unknown Uncoded 10/14/23 23:00 From Vicodin AdvReac Unknown NAUSEA & Uncoded 10/14/23 23:00 VOMITING Review of Systems 2 Constitutional: Constitutional: Denies body ache(s), Denies chills, Denies fatigue, Denies fever(s) and Denies headache(s) Eyes: Eyes: Denies blurry vision ENT: Denies headache(s) and Denies sore throat Cardiovascular: Cardiovascular: Reports chest pain and Denies dyspnea Respiratory: Respiratory: Denies cough and Denies dyspnea Gastrointestinal: Gastrointestinal: Denies abdominal pain, Denies nausea and Denies vomiting Genitourinary: Genitourinary: Denies dysuria Musculoskeletal: Musculoskeletal: Denies back pain Integumentary/Breasts: Skin/Breast: Denies rash Neurologic: Denies headache(s) Endocrine: Endocrine: Denies fatigue [facility] Past Medical History Medical History (Updated 10/15/23 @ 00:42 by Saul Higginbotham) Myocardial infarction Hypothyroidism Hyperlipidemia COPD (chronic obstructive pulmonary disease) HTN (hypertension) PAF (paroxysmal atrial fibrillation) Family History Family History Father History of heart disease Mother History of heart disease Social History Social History Household Members: None Housing: Senior [facility] Do you presently have visiting nurse or other home services: Yes Alcohol intake: never Comment: Sitter in room Patient Tobacco Use Status: Former Tobacco user Advance Directives: Yes Advance Directives on File: Yes Advance Directives Date on File: 05/10/21 service: No Current occupational status: retired Physical Exam 2 Vital Signs: Vital Signs: Last Vital Signs Temp 98.3 F 10/14/23 22:57 Pulse 78 10/15/23 04:37 Resp 11 L 10/15/23 04:37 BP 133/61 10/15/23 04:37 Pulse Ox 96 10/15/23 04:37 O2 Del Method Nasal Cannula 10/15/23 04:37 O2 Flow Rate 3 10/15/23 04:37 Oxygen Flow Rate 3 10/14/23 22:57 BMI result Body Mass Index 23.8 Const: General: healthy appearing, comfortable, no acute distress, alert and awake Nutritional Appearance: well nourished Orientation/consciousness: p atient oriented x3 HEENT: Head: Yes normocephalic and Yes atraumatic Eyes: Eyelids: Yes eyelids normal Conjunctivae: conjunctivae normal S clerae: sclerae normal Corneas: corneas normal Pupils: Equal, round and reactive pupils present EOM: EOMs intact bilaterally Neck: Neck: Yes full ROM Chest: Other: Exam performed with female RN, Bijal present. No obvious skin changes, rashes, erythema to the chest wall or breast. No palpable masses to the breast. The patient is tender to the left chest wall/breast Chest palpation & inspection: normal inspection of the chest Resp: Effort & Inspection: normal respiratory effort, able to speak in complete sentences and not labored Cardio: Rate: regular rate Rhythm: regular rhythm GI: Inspection: No distended Palpation (GI): Soft to palpation, not firm, nontender, no guarding and not rigid Skin: General skin exam: elasticity normal Neuro: General: patient oriented x3 Cranial nerves: Yes Equal, round and reactive pupils present and Yes Bilaterally intact EOM present Cognition (Neuro): normal cognition Course Reevaluation(s) Reevaluation #1: Patient's initial troponin was 22.1 this is down from her last troponin a few weeks ago 65.4. Plan to repeat at the 3 hour rome. Unfortunately, the remainder of the chemistry panel is will be pending as the chemistry analyzer is down in the lab. Patient will be signed out to the overnight team Time: 01:48 Medications Administered Discontinued Medications Generic Name Dose Route Start Last Admin Trade Name Rohith PRN Reason Stop Dose Admin Morphine Sulfate 4 mg 10/14/23 23:24 10/15/23 00:42 Morphine Sulfate 4 Mg/Ml Cartridge IVPUSH 10/14/23 23:25 4 mg ONCE ONE Administration Protocol Ondansetron HCl 4 mg 10/14/23 23:24 10/15/23 00:42 Ondansetron Hcl 4 Mg/2 Ml Vial IVPUSH 10/14/23 23:25 4 mg ONCE ONE Administration Medical Decision Making Medical Decision Making [facility] Narrative: 88-year-old female presents for evaluation of left-sided breast pain. The pain is reproducible on exam. She is quite tender to left breast without any underlying masses or skin changes to suggest infectious process. Given her age and risk factors she will be worked up for ACS. Her EKG is nonischemic. Labs and chest x-ray pending Two sets of troponin without any delta change patient without chest pain will discharge patient home Differential Diagnosis Differential Diagnoses: The differential diagnosis associated with the presentation includes Chest wall pain Chest pain Cellulitis Breast mass ACS less likely Pneumonia Bronchitis Admission/Observation Consideration of admission/observation: Escalation of care including admission/observation considered Consider admission for chest pain as the patient has risk factors Lab Data [facility] Lab Attestation statement: I reviewed the patient's lab results. Hematologic indices without acute findings. Troponin 22.1. 10/15/23 00:45 10/15/23 00:45 Labs: Lab Results 10/15/23 10/15/23 Range/Units 00:45 03:07 WBC 9.5 (4.8-10.8) X10*3/uL RBC 4.10 L (4.20-5.50) X10*6/uL Hgb 12.7 (12.0-16.0) g/dl Hct 37.7 (37.0-47.0) % MCV 92.0 (80.0-98.0) fL MCH 31.0 (27.0-33.0) pg MCHC 33.7 (31.0-35.0) g/dl RDW 12.4 (11.0-16.0) % Plt Count 278 (160-400) X10*3/uL MPV 10.2 (9.4-12.3) fL Immature Gran % (Auto) 0.4 (0.0-0.4) % Neut % (Auto) 76.6 H (45-73) % Lymph % (Auto) 12.0 L (20-40) % [place] % (Auto) 10.3 (2-11) % Eos % (Auto) 0.3 (0-4) % Baso % (Auto) 0.4 (0-2) % Lymph # (Auto) 1.1 L (1.2-4.9) X10*3/uL [place] # (Auto) 1.0 (0.1-1.2) X10*3/uL Eos # (Auto) 0.0 (0.0-0.4) X10*3/uL Baso # (Auto) 0.0 (0.0-0.2) X10*3/uL Abs Immat Gran (auto) 0.04 H (0.00-0.03) X10*3/uL Absolute Neuts (auto) 7.2 (2.0-8.3) x10*3/uL Absolute Nucleated RBC 0.000 (0.0-0.012) X10*3/uL Nucleated RBC % (auto) 0.0 (0.0-0.2) /100WBC PT 11.5 (11.1-13.3) SEC INR 0.9 (0.9-1.1) Sodium 137 (135-145) mmol/L Potassium 3.5 (3.3-5.1) mmol/L Chloride 86 L (96-108) mmol/L Carbon Dioxide 39 H (22-29) mmol/L Anion Gap 16 (12-20) BUN 22 H (9-16) mg/dL Creatinine 1.45 H (0.5-1.4) mg/dL Estim Creat Clear Calc 26.5 Estimated GFR 34 Random Glucose 112 (60-115) mg/dL Calcium 9.6 D (8.4-10.2) mg/dL Total Bilirubin 0.9 (0.0-1.0) mg/dL AST 31 (5-31) U/L ALT 27 (0-31) U/L Alkaline Phosphatase 87 (39-117) U/L Troponin I High Sens 22.1 H D 22.7 H (<3.5-17.0) ng/L Total Protein 7.6 (6.5-8.0) g/dL Albumin 3.7 (3.5-5.0) g/dL Lipase 32 (8-78) U/L Discharge Plan Discharge Clinical Impression: Left-sided chest pain Patient Disposition: Still a Patient Instructions: Chest Pain (ED) Additional Instructions: Your workup in the ER today was reassuring. This includes your chest x-ray, blood work and EKG You may take all of your medications as prescribed Follow-up with your primary doctor Prescriptions: No Action levothyroxine 50 mcg tablet 75 mcg PO MOWEFR@0630 furosemide 20 mg Tablet 60 mg PO DAILY ipratropium-albuterol 0.5 mg-3 mg(2.5 mg base)/3 mL Solution For Nebulization 3 ml inhalation RQ4H PRN (Reason: Wheezing) Qty: 1 0RF hydralazine 25 mg Tablet 25 mg PO TID Qty: 90 0RF Protocol: Hold for SBP< HOLD for SBP < : 90 prednisone 10 mg tablet See Rx Instructions .ROUTE .COMPLEX Qty: 10 0RF Rx Instructions: 20 mg daily x 2 days, then 15 mg daily x 2 days, then 10 mg daily x 2 days, then 5 mg daily x 2 days cefuroxime axetil 250 mg tablet 250 mg PO BID Qty: 4 0RF famotidine 20 mg tablet 20 mg PO BID montelukast 10 mg tablet 10 mg PO BEDTIME multivitamin Tablet 1 tab PO DAILY aspirin 81 mg Tablet,Delayed Release (Dr/Ec) 81 mg PO DAILY amlodipine 5 mg tablet 5 mg PO BID levothyroxine 50 mcg tablet 50 mcg PO SUTUTHSA@0630 ipratropium bromide 17 mcg/actuation HFA aerosol inhaler 2 puff inhalation QID PRN (Reason: Shortness Of Breath) gabapentin 300 mg capsule 300 mg PO BID magnesium oxide 400 mg (241.3 mg magnesium) tablet 400 mg PO BEDTIME Print Language: Egyptian
[2023-10-15] MEDS: ondansetron HCL 4 MG/2 ML VIAL IVPUSH (00:42)
[2023-10-15] MEDS: Morphine Sulfate 4 MG/ML CARTRIDGE IVPUSH (00:42)
[2023-10-15 00:51] LABS: MANUAL DIFF FLAG NO
[2023-10-15 00:55] LABS: Basophils Percent Auto 0.4 % (0-2); Eosinophils Percent Auto 0.3 % (0-4); Hematocrit 37.7 % (37.0-47.0); Hemoglobin 12.7 g/dl (12.0-16.0); Imm Gran Abs Auto 0.04 X10*3/uL (0.00-0.03); Imm Gran Pct Auto 0.4 % (0.0-0.4); Lymphocytes Absolute Auto 1.1 X10*3/uL (1.2-4.9); Mean Corpuscular HGB Conc 33.7 g/dl (31.0-35.0); Mean Platelet Volume 10.2 fL (9.4-12.3); Monocytes Percent Auto 10.3 % (2-11); Neutrophils Absolute Auto 7.2 x10*3/uL (2.0-8.3); Neutrophils Percent Auto 76.6 % (45-73); Platelet Count 278 X10*3/uL (160-400); Red Cell Distribution Width 12.4 % (11.0-16.0); White Blood Count 9.5 X10*3/uL (4.8-10.8)
[2023-10-15 01:11] LABS: INTERNATIONAL NORM RATIO 0.9 (0.9-1.1); Prothrombin Time 11.5 SEC (11.1-13.3)
[2023-10-15 01:30] LABS: Troponin-I High Sensitivity 22.1 ng/L (<3.5-17.0)
[2023-10-15 01:59] VITALS: BP 103/52; PULSE 82; RESP 17; O2SAT 95
[2023-10-15 02:02] LABS: Alanine Aminotransferase 27 U/L (0-31); Albumin Level 3.7 g/dL (3.5-5.0); Alkaline Phosphatase 87 U/L (39-117); Anion Gap 16 (12-20); Aspartate Amino Transferase 31 U/L (5-31); Bilirubin Total 0.9 mg/dL (0.0-1.0); Blood Urea Nitrogen 22 mg/dL (9-16); Calcium 9.6 mg/dL (8.4-10.2); Carbon Dioxide 39 mmol/L (22-29); Chloride 86 mmol/L (96-108); Creatinine Clr Calc Pharmacy 26.5; Estimated Glomerular Filt Rate 34; Glucose Random 112 mg/dL (60-115); Lipase 32 U/L (8-78); Potassium 3.5 mmol/L (3.3-5.1); Sodium 137 mmol/L (135-145); Total Protein 7.6 g/dL (6.5-8.0)
[2023-10-15 03:33] LABS: Troponin-I High Sensitivity 22.7 ng/L (<3.5-17.0)
[2023-10-15 04:37] VITALS: BP 133/61; PULSE 78; RESP 11; O2SAT 96
[2023-10-15 06:35] VITALS: BP 146/69; PULSE 82; RESP 13; O2SAT 96
--- NOTE | 2023-10-15 09:31 | PC.NURSE ---
assumed care of pt at 0700. pt up for discharge, awaiting ambulance booking. pt sleeping soundly on stretcher in no apparent distress. on 3L O2 via NC sating 96%. on bedside monitor. rr even/unlabored. pt dry. call peters within reach. rr even/unlabored. plan of care ongoing.
[2023-10-15 10:15] VITALS: BP 124/74; PULSE 79; RESP 10; TEMP 36.6; O2SAT 96
[2023-10-15 10:20] VITALS: BP 124/74; PULSE 79; RESP 10; TEMP 36.6; O2SAT 96
== END 2023-10-15 10:34 | disposition skilled nursing facility (03) ==
PROVIDERS: Physician Assistant; Emergency Provider Internal Medicine; PCP Internal Medicine
DX: R07.89 Other chest pain (principal); I48.91 Unspecified atrial fibrillation; Z79.899 Other long term (current) drug therapy; Z87.891 Personal history of nicotine dependence
CPT/HCPCS: 36415; 71045; 80053; 83690; 84484; 85025; 85610; 93005; 96374; 96375; 99284; J2270; J2405

== ENCOUNTER → 2023-10-14 22:48 | Outpatient (BNV) | payer MEDICARE, MEDICAID, SELFPAY | PROVIDERS: Emergency Provider Internal Medicine; PCP Internal Medicine; Visit Provider Internal Medicine Cardiovascular Disease | DX: R07.9 Chest pain, unspecified (principal) | CPT/HCPCS: 93010 ==

== ENCOUNTER 2023-10-27 12:41 | Observation (INO) | payer MEDICARE, MEDICAID, SELFPAY ==
--- NOTE | ~2023-10-27 | CT_ITS ---
EXAMINATION: CT ABDOMEN AND PELVIS WITHOUT CONTRAST CLINICAL INFORMATION: Abdominal pain COMPARISON: Previous CT of the abdomen and pelvis July 2018 TECHNIQUE: Multidetector volumetric imaging was performed from the superior aspect of the liver through the pubic symphysis. Sagittal and coronal reformatted images were obtained on the technologist's workstation. This CT examination was performed using dose optimization techniques as appropriate, variously including the following: *Automated exposure control *Adjustment of mA and/or kV according to patient size (this includes techniques or standardized protocols for targeted exams where dose is matched to indication/reason for exam; i.e. extremities or head) *Use of iterative reconstruction technique DLP: 547 mGy-cm FINDINGS: LUNG BASES: The visualized lung bases are clear. Small to moderate esophageal hernia. LIVER, GALLBLADDER, AND BILIARY TREE: The liver is normal in size, shape, and attenuation. No focal hepatic lesion or biliary ductal dilatation is present. Gallbladder not seen and has presumably been removed. PANCREAS: Fatty infiltration of the head of the pancreas. SPLEEN: Unremarkable. ADRENAL GLANDS: Unremarkable. KIDNEYS AND URETERS: The kidneys are normal in size, shape, and attenuation. No hydronephrosis, hydroureter, or calculi seen. No perinephric stranding. BLADDER: Mild diffuse bladder wall thickening. Fluid in the bladder is higher attenuation than the adjacent pelvic cyst. Correlation with urinalysis recommended. GASTROINTESTINAL TRACT: Diverticulosis and constipation. Appendix not seen. Small to moderate esophageal hernia. ABDOMINAL WALL: Umbilical hernia containing fat LYMPH NODES: Normal. VASCULAR: 3.5 x 3.6 cm lower abdominal aortic aneurysm. This is increased in size from 3 cm in July 2018. Recommend follow-up every 2 years. PELVIC VISCERA: Interval increase in size and right pelvic cyst measuring 9 x 9.5 cm compared to 6 7.3 x 6.5 cm and 2019. Uterus appears to have been removed. OSSEOUS STRUCTURES: Severe L3 vertebral body compression fracture. This is new in the interval from 2019 CT. Mild T12 vertebral body compression fracture unchanged. Degenerative changes of the spine and hips. CT/CT abdomen pelvis wo IV con IMPRESSION: 9 x 9.5 cm right pelvic cyst probably representing an adnexal cyst. This is increased in size from 2019. 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 Recommend either a gynecological consult and follow-up ultrasonography in 3-6 months, or unenhanced and IV contrast enhanced MRI of the pelvis for improved characterization. Abdominal aortic aneurysm slightly increased in size from 2019 now measuring 3.5 x 3.6 cm. Imaging follow-up every 2 years recommended. Constipation and diverticulosis. Small to moderate esophageal hernia. Diffusely thickened bladder wall and slightly high attenuation fluid in the bladder. Correlation with urinalysis recommended. L3 vertebral body compression fracture, age indeterminate. This is new in the interval from 2019 exam. Fleischner guidelines were followed.
[2023-10-27 12:54] VITALS: BP 114/54; BP 138/60; PULSE 102; PULSE 98; RESP 18; TEMP 36.6; O2SAT 94; BMI 22.8
--- NOTE | 2023-10-27 13:10 | ECG_ITS ---
Test Reason : ABD PAIN Blood Pressure : / mmHG Vent. Rate : 095 BPM Atrial Rate : 000 BPM P-R Int : 000 ms QRS Dur : 082 ms QT Int : 380 ms P-R-T Axes : 000 003 117 degrees QTc Int : 478 ms Sinus rhythm Premature atrial complexes Low voltage QRS Cannot rule out Inferior infarct (cited on or before 28-SEP-2023) Cannot rule out Anterior infarct (cited on or before 28-SEP-2023) Abnormal ECG When compared with ECG of 14-OCT-2023 22:48, Premature atrial complexes present Referred By: Pablo Castrejon Electronically Signed By:BRISA LUU
--- NOTE | 2023-10-27 13:17 | ED_ITS ---
HPI - Abdominal Pain General Chief Complaint: Abdominal Pain Stated Complaint: ABD PAIN Time Seen by Provider: 10/27/23 12:51 Source: patient and other ([place] records) Limitations: other (Cognitive disorder) History of Present Illness HPI narrative: 88 years old with past medical history of COPD, recent infection with influenza that required hospitalization, chronic leg edema, deafness, cellulitis, paroxysmal atrial fibrillation, presents to the emergency room for abdominal pain. According to [facility] reports patient's last bowel movement was 3 days ago, today patient started to complain of diffuse generalized abdominal pain. She also reports that her last urination was yesterday. Patient on arrival seems in distress, complains of generalized abdominal pain, denies nausea or vomiting. From [facility] reports and the patient herself there is no history of rectal bleeding. Patient not febrile on arrival, not reported fever. At baseline she is on 2 L nasal cannula for COPD exacerbation but she denies chest pain or shortness of breath or cough. Patient reports that in the past she had an hysterectomy and appendectomy. Related Data Home Medications ?Medication ?Instructions ?Recorded ?Confirmed gabapentin 300 mg capsule 300 mg PO BID Pain 07/13/20 09/28/23 ipratropium bromide 17 2 puff inhalation QID PRN 07/13/20 09/28/23 mcg/actuation HFA aerosol inhaler Shortness Of Breath levothyroxine 50 mcg tablet 50 mcg PO SUTUTHSA@0630 07/13/20 09/28/23 magnesium oxide 400 mg (241.3 mg 400 mg PO BEDTIME 07/13/20 09/28/23 magnesium) tablet levothyroxine 50 mcg tablet 75 mcg PO MOWEFR@0630 05/07/21 09/28/23 aspirin 81 mg tablet,delayed 81 mg PO DAILY 12/21/22 09/28/23 release famotidine 20 mg tablet 20 mg PO BID 12/21/22 09/28/23 montelukast 10 mg tablet 10 mg PO BEDTIME 12/21/22 09/28/23 multivitamin 1 tab PO DAILY 12/21/22 09/28/23 amlodipine 5 mg tablet 5 mg PO BID 09/12/23 09/28/23 furosemide 20 mg tablet 60 mg PO DAILY 09/28/23 09/28/23 Previous Rx's ?Medication ?Instructions ?Recorded cefuroxime axetil 250 mg tablet 250 mg PO BID #4 tabs 10/05/23 hydralazine 25 mg tablet 25 mg PO TID #90 tabs 10/05/23 ipratropium 0.5 mg-albuterol 3 mg 3 ml inhalation RQ4H PRN Wheezing 10/05/23 (2.5 mg base)/3 mL nebulization #1 mL soln prednisone 10 mg tablet See Rx Instructions .Route 10/05/23 .COMPLEX #10 tabs Allergies Allergy/AdvReac Type Severity Reaction Status Date / Time adhesive tape [Adhesive Tape] Allergy Unknown RASH Verified 10/27/23 13:03 codeine [Codeine] Allergy Unknown SWELLING Verified 10/27/23 13:04 Iodinated Contrast Media Allergy Unknown UNKNOWN Verified 10/27/23 13:04 [IV Dye, Iodine Containing] iodine [Iodine] Allergy Unknown UNKNOWN Verified 10/27/23 13:04 oxycodone [Percocet] Allergy Unknown unknown Verified 10/27/23 13:04 papaya [Papaya] Allergy Unknown HIVES Verified 10/27/23 13:04 pineapple [Pineapple] Allergy Unknown HIVES Verified 10/27/23 13:04 strawberry [[place]] Allergy Unknown HIVES Verified 10/27/23 13:04 Codeine Phosphate Allergy Unknown unknown Uncoded 10/27/23 13:04 Novocain Allergy Unknown unknown Uncoded 10/14/23 23:00 From Vicodin AdvReac Unknown NAUSEA & Uncoded 10/14/23 23:00 VOMITING PMFSH Past Medical History Medical History (Updated 10/27/23 @ 20:25 by Pablo Castrejon MD) Myocardial infarction Hypothyroidism Hyperlipidemia COPD (chronic obstructive pulmonary disease) HTN (hypertension) PAF (paroxysmal atrial fibrillation) Family History Family History Father History of heart disease Mother History of heart disease Social History Social History Household Members: None Housing: [place] Do you presently have visiting nurse or other home services: Yes Alcohol intake: never Comment: Sitter in room Patient Tobacco Use Status: Former Tobacco user Smoked in Last 30 Days: No Use of substances other than those prescribed or required for medical reasons: No Advance Directives: Yes Advance Directives on File: Yes Advance Directives Date on File: 05/10/21 service: No Current occupational status: retired Physical Exam ED Vital Signs: Vital Signs - 24 hr 10/27/23 12:54 10/27/23 18:03 Temperature 97.8 F 97.4 F Pulse Rate 98 99 Respiratory Rate 18 16 Blood Pressure 114/54 L 129/63 Pulse Oximetry 94 97 Oxygen Delivery Method Nasal Cannula Nasal Cannula BMI result Body Mass Index 22.8 General: Alert, in moderate distress due to abdominal pain Skin: Minimal skin redness at the level of the buttocks bilaterally, there is also a dressing applied from [facility]. RUQ surgical scar HEENT: Atraumatic, No Exudate or Pharyngeal Erythema Resp: Normal Breath sounds bilaterally Cardio: irrRegular rate and Rhythm, Normal S1, S2 ABD: Abd diffusely tender, no guarding or rebound, rectal exam showed soft stools in the rectal vault, FOBT negative : Minimal CVA tenderness bilaterally Neuro: Patient is alert, oriented times 3, does not know the date, no unilateral weakness, blurry vision, slurred speech Psych: Cooperative, NO SI Course Reevaluation(s) Reevaluation #1: Patient continues to complain of generalized abdominal pain. Will add Tylenol, pending formal read of CT scan. Time: 15:04 Reevaluation #2: CT showed a 9 x 9.5 ovarian cyst that will need further characterization as an outpatient with MRI and student liaison officer consult however I do not think disease cause of patient's pain, the CT also highlighted and aortic aneurysm that will require as well outpatient follow-up CT was done without contrast however I do not think this is the cause of patient's pain at this time, CT also showed constipation which I think may cause patient's pain for this reason will do an enema and continue to observe the patient. Time: 15:53 Reevaluation #3: Patient reports improvement of the pain. Family was updated at bedside. They reported that patient presentation is similar to prior episodes of constipation. Will try enema, if patient's symptoms improve I think she can be discharged back to [facility]. Will reassess Time: 16:49 Additional Reevaluation(s): Patient unable to tolerate p.o. potassium tablet, will try with po powder, 40 mEq. Enema was done but no bowel movement yet. Patient reports improvement of pain however his pain is still present, repeated physical exam patient has diffuse tenderness. See unable to have a bowel movement. Repeated potassium is pending, however in consideration of the patient symptoms that have improved but not resolved, hypokalemia, and patient's age will admit the patient for further treatment. Medical Decision Making Medical Decision Making [facility] Narrative: 88 years old presented to emergency room for abdominal pain, patient had prior intra-abdominal surgery with puts her at risk of obstruction, a bedside ultrasound that I personally performed showed no hydronephrosis, bladder appeared full which makes urinary retention definitely high on my differential diagnosis aorta was not well visualized but for the segmented were visualized does not appear to be enlarged. No intra-abdominal fluid. At this time patient does not appear to be in respiratory distress therefore I do not think patient has COPD exacerbation Possible differential diagnosis include obstruction, constipation, UTI, pyelonephritis less likely cholecystitis or pancreatitis Plan And normal straight cath CBC, BMP, LFTs, lipase Lactic acid IV fluids Analgesia if trachea does not resolve patient's symptoms Admission/Observation Consideration of admission/observation: Escalation of care including admission/observation considered Consult Healthcare Provider Management of the patient was discussed with: Hospitalist (Consulted for admission: Will admit) Lab Data [facility] Lab Attestation statement: I reviewed the patient's lab results. I personally reviewed the patient's lab work that showed hypokalemia with a potassium of 2.7 10/27/23 13:41 10/27/23 13:41 Labs: Lab Results 10/27/23 10/27/23 10/27/23 Range/Units 13:41 13:42 15:50 WBC 8.8 (4.8-10.8) X10*3/uL RBC 3.93 L (4.20-5.50) X10*6/uL Hgb 12.4 (12.0-16.0) g/dl Hct 36.0 L (37.0-47.0) % MCV 91.6 (80.0-98.0) fL MCH 31.6 (27.0-33.0) pg MCHC 34.4 (31.0-35.0) g/dl RDW 12.6 (11.0-16.0) % Plt Count 179 D (160-400) X10*3/uL MPV 10.2 (9.4-12.3) fL Immature Gran % (Auto) 0.8 H (0.0-0.4) % Neut % (Auto) 71.8 (45-73) % Lymph % (Auto) 14.4 L (20-40) % [place] % (Auto) 11.6 H (2-11) % Eos % (Auto) 0.8 (0-4) % Baso % (Auto) 0.6 (0-2) % Lymph # (Auto) 1.3 (1.2-4.9) X10*3/uL [place] # (Auto) 1.0 (0.1-1.2) X10*3/uL Eos # (Auto) 0.1 (0.0-0.4) X10*3/uL Baso # (Auto) 0.1 (0.0-0.2) X10*3/uL Abs Immat Gran (auto) 0.07 H (0.00-0.03) X10*3/uL Absolute Neuts (auto) 6.3 (2.0-8.3) x10*3/uL Absolute Nucleated RBC 0.000 (0.0-0.012) X10*3/uL Nucleated RBC % (auto) 0.0 (0.0-0.2) /100WBC Sodium 132 L (135-145) mmol/L Potassium 2.7 L* D (3.3-5.1) mmol/L Chloride 83 L (96-108) mmol/L Carbon Dioxide 39 H (22-29) mmol/L Anion Gap 13 (12-20) BUN 20 H (9-16) mg/dL Creatinine 1.45 H (0.5-1.4) mg/dL Estim Creat Clear Calc 26.5 Estimated GFR 34 Random Glucose 113 (60-115) mg/dL Lactic Acid 1.6 (0.5-2.0) mmol/L Calcium 9.2 (8.4-10.2) mg/dL Magnesium 2.2 (1.6-2.6) mg/dL Total Bilirubin 0.8 (0.0-1.0) mg/dL AST 27 (5-31) U/L ALT 16 (0-31) U/L Alkaline Phosphatase 100 (39-117) U/L Total Protein 6.8 (6.5-8.0) g/dL Albumin 3.5 (3.5-5.0) g/dL Lipase 36 (8-78) U/L Urine Color Dark Yellow Urine Appearance Turbid Urine pH 8.5 (5.0-9.0) Ur Specific [place] 1.015 (1.005-1.025) Urine Protein 300 (3+) H (Neg-Trace) mg/dL Urine Glucose (UA) Negative (Negative) mg/dL Urine Ketones Negative (Negative) mg/dL Urine Blood Trace H (Negative) Urine Nitrite Positive H (Negative) Ur Leukocyte Esterase Large (3+) H (Negative) Urine RBC 6-10 H (0-2) /HPF Urine WBC >50 H (0-5) /HPF Ur Squamous Epith Cells 0-2 (0-2) /HPF Other Crystals Present Urine Bacteria 4+ (None Seen) Hyaline Casts 0-2 (0-2) /LPF Independent Interpretation I performed an independent interpretation of an: EKG (I personally reviewed and interpreted the patient's EKG that shows atrial fibrillation with flattened Ts in the lateral leads), Ultrasound (I personally performed and interpreted bedside ultrasound that showed no hydronephrosis, distended bladder, no ascites or intraperitoneal fluid) and CT Scan (Personally reviewed patient CT scan that showed an hypodense round lesion in the right pelvis: Ovarian cyst?) External Record Review External record reviewed: Inpatient record (Records from last admission was reviewed) Attestation Attending Attestation: wder 40 mEq Medications Administered Discontinued Medications Generic Name Dose Route Start Last Admin Trade Name Freq PRN Reason Stop Dose Admin Sodium Chloride 500 mls @ 999 mls/hr 10/27/23 13:15 10/27/23 17:40 Ns IV 10/27/23 13:45 Infused .Q31M TOBI Infusion Potassium Chloride 10 meq in 100 mls @ 100 mls/hr 10/27/23 14:15 10/27/23 20:20 Potassium Chloride/H20 IV 10/27/23 18:14 Infused Q1H TOBI Infusion Acetaminophen 1,000 mg in 100 mls @ 400 mls/hr 10/27/23 14:47 10/27/23 16:31 Ofirmev IV 10/27/23 15:01 Infused ONCE ONE Infusion Ceftriaxone Sodium 1 gm/ 50 mls @ 100 mls/hr 10/27/23 16:41 10/27/23 17:40 Sodium Chloride IV 10/27/23 17:10 Infused ONCE ONE Infusion Sodium Chloride 500 mls @ 999 mls/hr 10/27/23 18:00 10/27/23 18:31 Ns IV 10/27/23 18:30 Infused .Q31M TOBI Infusion Mineral Oil 133 ml 10/27/23 15:52 10/27/23 16:59 Mineral Oil Enema 133 Ml Enema VA 10/27/23 15:53 133 ml ONCE ONE Administration Morphine Sulfate 2 mg 10/27/23 13:10 10/27/23 14:15 Morphine Sulfate 2 Mg/Ml Cartridge IVPUSH 10/27/23 13:11 2 mg ONCE ONE Administration Protocol Morphine Sulfate 2 mg 10/27/23 16:36 10/27/23 16:45 Morphine Sulfate 2 Mg/Ml Cartridge IVPUSH 10/27/23 16:37 2 mg ONCE ONE Administration Protocol Potassium Chloride 20 meq 10/27/23 16:37 10/27/23 16:55 Potassium Chloride Er 20 Meq Tab.Er.Prt PO 10/27/23 16:38 Not Given ONCE ONE Potassium Chloride 40 meq 10/27/23 17:14 10/27/23 17:55 Potassium Chloride Packet 20 Meq Packet PO 10/27/23 17:15 40 meq ONCE ONE Administration Discharge Plan Discharge Clinical Impression: Constipation, Acute hypokalemia, CKD (chronic kidney disease) stage 3, GFR 30- 59 ml/min Patient Disposition: Admitted As Inpatient Prescriptions: No Action levothyroxine 50 mcg tablet 75 mcg PO MOWEFR@0630 furosemide 20 mg Tablet 60 mg PO DAILY ipratropium-albuterol 0.5 mg-3 mg(2.5 mg base)/3 mL Solution For Nebulization 3 ml inhalation RQ4H PRN (Reason: Wheezing) Qty: 1 0RF hydralazine 25 mg Tablet 25 mg PO TID Qty: 90 0RF Protocol: Hold for SBP< HOLD for SBP < : 90 prednisone 10 mg tablet See Rx Instructions .ROUTE .COMPLEX Qty: 10 0RF Rx Instructions: 20 mg daily x 2 days, then 15 mg daily x 2 days, then 10 mg daily x 2 days, then 5 mg daily x 2 days cefuroxime axetil 250 mg tablet 250 mg PO BID Qty: 4 0RF famotidine 20 mg tablet 20 mg PO BID montelukast 10 mg tablet 10 mg PO BEDTIME multivitamin Tablet 1 tab PO DAILY aspirin 81 mg Tablet,Delayed Release (Dr/Ec) 81 mg PO DAILY amlodipine 5 mg tablet 5 mg PO BID levothyroxine 50 mcg tablet 50 mcg PO SUTUTHSA@0630 ipratropium bromide 17 mcg/actuation HFA aerosol inhaler 2 puff inhalation QID PRN (Reason: Shortness Of Breath) gabapentin 300 mg capsule 300 mg PO BID magnesium oxide 400 mg (241.3 mg magnesium) tablet 400 mg PO BEDTIME Print Language: Serbian
[2023-10-27 13:47] LABS: Basophils Absolute Auto 0.1 X10*3/uL (0.0-0.2); Basophils Percent Auto 0.6 % (0-2); Eosinophils Absolute Auto 0.1 X10*3/uL (0.0-0.4); Eosinophils Percent Auto 0.8 % (0-4); Hemoglobin 12.4 g/dl (12.0-16.0); Imm Gran Abs Auto 0.07 X10*3/uL (0.00-0.03); Imm Gran Pct Auto 0.8 % (0.0-0.4); Lymphocytes Absolute Auto 1.3 X10*3/uL (1.2-4.9); Lymphocytes Percent Auto 14.4 % (20-40); Mean Corpuscular HGB Conc 34.4 g/dl (31.0-35.0); Mean Corpuscular Hemoglobin 31.6 pg (27.0-33.0); Mean Corpuscular Volume 91.6 fL (80.0-98.0); Mean Platelet Volume 10.2 fL (9.4-12.3); Monocytes Percent Auto 11.6 % (2-11); Neutrophils Absolute Auto 6.3 x10*3/uL (2.0-8.3); Neutrophils Percent Auto 71.8 % (45-73); Platelet Count 179 X10*3/uL (160-400); Red Blood Count 3.93 X10*6/uL (4.20-5.50); Red Cell Distribution Width 12.6 % (11.0-16.0); White Blood Count 8.8 X10*3/uL (4.8-10.8)
[2023-10-27 13:48] LABS: MANUAL DIFF FLAG NO
[2023-10-27 14:00] LABS: Appearance Urine Turbid; Color Urine Dark Yellow; Glucose Urine UA Negative (Negative); Leukocyte Esterase Urine Large (3+) (Negative); Nitrite Urine Positive (Negative); PH 8.5 (5.0-9.0); Specific Gravity - Urine 1.015 (1.005-1.025); UMIC TRIGGER UACC YES; Urine Blood Trace (Negative); Urine Ketones Negative (Negative); Urine Protein 300 (3+) mg/dL (Neg-Trace)
[2023-10-27 14:13] LABS: Alanine Aminotransferase 16 U/L (0-31); Albumin Level 3.5 g/dL (3.5-5.0); Alkaline Phosphatase 100 U/L (39-117); Anion Gap 13 (12-20); Aspartate Amino Transferase 27 U/L (5-31); Bilirubin Total 0.8 mg/dL (0.0-1.0); Blood Urea Nitrogen 20 mg/dL (9-16); Calcium 9.2 mg/dL (8.4-10.2); Carbon Dioxide 39 mmol/L (22-29); Chloride 83 mmol/L (96-108); Creatinine Clr Calc Pharmacy 26.5; Estimated Glomerular Filt Rate 34; Glucose Random 113 mg/dL (60-115); Lipase 36 U/L (8-78); Potassium 2.7 mmol/L (3.3-5.1); Sodium 132 mmol/L (135-145); Total Protein 6.8 g/dL (6.5-8.0)
[2023-10-27] MEDS: Morphine Sulfate 2 MG/ML CARTRIDGE IVPUSH ×2 (14:15→16:45)
[2023-10-27 14:18] LABS: Bacteria Urine 4+ (None Seen); Hyaline Casts Urine 0-2 /LPF (0-2); Other Crystals Urine Present; Squamous Epithelial Cell Urine 0-2 /HPF (0-2); UACC Culture Trigger YES; WBC Urine >50 /HPF (0-5)
[2023-10-27] MEDS: 0.9 % Sodium Chloride 500 ML 999 ML IV ×2 (14:23→18:00)
[2023-10-27] MEDS: Potassium Chloride/H20 10 MEQ/100 ML PIGGYBACK 100 MEQ IV ×4 (14:24→19:08)
[2023-10-27 14:50] LABS: Magnesium 2.2 mg/dL (1.6-2.6)
[2023-10-27] MEDS: Acetaminophen 1,000 MG/100 ML PIGGYBACK 400 MG IV (15:36)
--- NOTE | 2023-10-27 15:52 | PC.NURSE ---
called lab about missing lactic. they found the specimen but said it was never properly received, nor analyzed and that it was now old and needed to be redrawn. This RN redrew the sample and sent to lab
[2023-10-27 16:07] LABS: Lactic Acid 1.6 mmol/L (0.5-2.0)
[2023-10-27] MEDS: Mineral OiL enema 133 ML ENEMA PR (16:59)
[2023-10-27] MEDS: cefTRIAXone sodium 1 GM in 0.9 % Sodium Chloride 50 ML IV (17:09)
[2023-10-27] MEDS: Potassium Chloride Packet 20 MEQ PACKET 40 MEQ PO (17:55)
[2023-10-27 18:03] VITALS: BP 129/63; PULSE 99; RESP 16; TEMP 36.3; O2SAT 97
--- NOTE | 2023-10-27 18:36 | PC.NURSE ---
pt unable to have BM after enema. Pt sat on commode for several minutes. IV potassium infusing 3/4 bags. Repeat K was drawn during 3rd IV potassium bag.
--- NOTE | 2023-10-27 19:34 | PC.NURSE ---
PT laying in bed, fanning self and stating I need oxygen . O2 sat 95% on 2L NC. All other vitals stable. Dr. Castrejon made aware. PT has had the same complaint all day. No further orders @ this time.
--- NOTE | 2023-10-27 20:34 | PHA.MEDREC ---
Pharmacy Consult ? Medication Reconciliation Pharmacy has completed the medication reconciliation. Patient from [facility] with med list. Shana Steward, MendyD
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
[2023-10-28] VITALS (9 sets, daily range): BP systolic 121–164; BP diastolic 61–91; PULSE 53–98; RESP 16–18; TEMP 36–36.5; O2SAT 94–96
--- NOTE | 2023-10-28 | ECG_ITS ---
Test Reason : check qtc Blood Pressure : / mmHG Vent. Rate : 093 BPM Atrial Rate : 000 BPM P-R Int : 000 ms QRS Dur : 076 ms QT Int : 370 ms P-R-T Axes : 000 -06 006 degrees QTc Int : 460 ms Sinus rhythm Premature atrial complexes Low voltage QRS Septal infarct , age undetermined Possible Inferior infarct , age undetermined Abnormal ECG No previous ECGs available No significant changes when compared with the previous EKG of 27 october 2023 Referred By: Kenyatta Whipple Electronically Signed By:BRISA LUU
[2023-10-28] MEDS: Sennosides 8.6 MG TABLET 17.2 MG PO (01:10)
[2023-10-28] MEDS: Milk of Magnesia 30 ML ORAL.SUSP PO (01:10)
[2023-10-28] MEDS: Enoxaparin Sodium 30 MG/0.3 ML SYRINGE SUBCUT ×2 (01:11→20:45)
[2023-10-28] MEDS: 0.9 % Sodium Chloride Flush 3 ML SYRINGE IVFLUSH ×3 (01:11→15:59)
[2023-10-28] MEDS: Levothyroxine Sodium 50 MCG TABLET PO (06:35)
[2023-10-28 07:33] LABS: Anion Gap 11 (12-20); Blood Urea Nitrogen 16 mg/dL (9-16); Calcium 8.5 mg/dL (8.4-10.2); Carbon Dioxide 37 mmol/L (22-29); Chloride 90 mmol/L (96-108); Creatinine Clr Calc Pharmacy 38.1; Estimated Glomerular Filt Rate 52; Glucose Random 91 mg/dL (60-115); Potassium 3.1 mmol/L (3.3-5.1); Sodium 135 mmol/L (135-145)
[2023-10-28] MEDS: Gabapentin 300 MG CAPSULE PO ×2 (09:34→20:35)
[2023-10-28] MEDS: amLODIPine Besylate 5 MG TABLET PO ×2 (09:34→20:35)
[2023-10-28] MEDS: Aspirin Enteric Coated 81 MG TABLET.DR PO (09:34)
[2023-10-28] MEDS: Famotidine 20 MG TABLET PO ×2 (09:34→16:00)
[2023-10-28] MEDS: Multivitamin TABLET 1 TAB PO (09:34)
[2023-10-28] MEDS: hydrALAZINE HCl 25 MG TABLET PO ×3 (09:34→20:37)
[2023-10-28] MEDS: Lactulose 20 GM/30 ML SOLUTION PO (09:35)
[2023-10-28] MEDS: Potassium Chloride ER 20 MEQ TAB.ER.PRT 40 MEQ PO (10:45)
--- NOTE | 2023-10-28 11:08 | MHC.CM.PN ---
PATIENT IS IN FROM [facility], SECOND FLOOR. SHE USES A WALKER AND O2 AT [facility]. MESSAGE LEFT FOR HCP/EMMETT @ NUMBER LISTED IN EXPANSE. REFERRAL PLACED IN [facility] FOR HER RETURN, ALONG WITH REQUEST FOR HCP. GUY 10/27 COPY IN CHART
--- NOTE | 2023-10-28 15:03 | HO.PM.IMPN ---
Subjective Subjective Date of Service: 10/28/23 Interval History: seen and examined this morning follow up for constipation, hypokalemia had a BM this afternoon no complaints Review of Systems Review of Systems: Yes all other systems are reviewed and are negative Constitutional Constitutional: Denies chills and Denies fever(s) Cardiovascular Cardiovascular: Denies chest pain and Denies palpitations Gastrointestinal Gastrointestinal: Denies abdominal pain, Denies nausea and Denies vomiting Endocrine Endocrine: Denies palpitations Physical Exam Vital Signs: Vital Signs: Last Vital Signs Temp 97.1 F 10/28/23 07:21 Pulse 98 10/28/23 07:21 Resp 18 10/28/23 07:21 BP 162/91 H 10/28/23 14:45 Pulse Ox 94 10/28/23 07:21 O2 Del Method Nasal Cannula 10/28/23 07:21 O2 Flow Rate 2 10/28/23 07:21 Oxygen Flow Rate 2 10/27/23 12:54 BMI result Body Mass Index 22.8 Const: General: cooperative, comfortable, no acute distress, alert and awake Nutritional Appearance: average body habitus Orientation/consciousness: oriented to person and oriented to place Resp: Effort & Inspection: normal respiratory effort, able to speak in complete sentences, no respiratory distress and no use of accessory muscles Cardio: Rate: regular rate GI: Inspection: No distended Palpation (GI): Soft to palpation and nontender Neuro: General: oriented to person, oriented to place, moves all extremities and CN's II-XI intact bilaterally Extrem: General: Yes no pedal edema Objective Data Active Medications Acetaminophen (Acetaminophen 325 Mg Tablet) 650 mg PO Q6H PRN PRN Reason: Pain, Mild (Pain Scale 1-3) Albuterol/Ipratropium (Albuterol/Iprat 2.5/0.5mg 3 Ml Ampul.Neb) 3 ml INHALE Q4H PRN PRN Reason: Wheezing Amlodipine Besylate (Amlodipine Besylate 5 Mg Tablet) 5 mg PO BID [facility]; Protocol Last Admin: 10/28/23 09:34 Dose: 5 mg Documented By: CHRISTIE Aspirin (Aspirin Enteric Coated 81 Mg Tablet.) 81 mg PO DAILY [facility] Last Admin: 10/28/23 09:34 Dose: 81 mg Documented By: CHRISTIE Enoxaparin Sodium (Enoxaparin Sodium 30 Mg/0.3 Ml Syringe) 30 mg SUBCUT Q24H [facility] Last Admin: 10/28/23 01:11 Dose: 30 mg Documented By: SHAVON Famotidine (Famotidine 20 Mg Tablet) 20 mg PO BID@0900,1700 [facility] Last Admin: 10/28/23 09:34 Dose: 20 mg Documented By: CHRISTIE Gabapentin (Gabapentin 300 Mg Capsule) 300 mg PO BID [facility] Last Admin: 10/28/23 09:34 Dose: 300 mg Documented By: CHRISTIE Hydralazine HCl (Hydralazine Hcl 25 Mg Tablet) 25 mg PO TID [facility]; Protocol Last Admin: 10/28/23 14:45 Dose: 25 mg Documented By: CHRISTIE Ceftriaxone Sodium 1 gm/ (Sodium Chloride) 50 mls @ 100 mls/hr IV Q24H [facility] Ipratropium Olin (Ipratropium Olin 1 Puff/17 Mcg Inhaler) 2 puff INHALE QID PRN PRN Reason: Shortness Of Breath Levothyroxine Sodium (Levothyroxine Sodium 50 Mcg Tablet) 50 mcg PO SUTUTHSA@0630 [facility] Last Admin: 10/28/23 06:35 Dose: 50 mcg Documented By: YISEL Levothyroxine Sodium (Levothyroxine Sodium 75 Mcg Tablet) 75 mcg PO MOWEFR@0630 [facility] Magnesium Oxide (Magnesium Oxide 400 Mg Tablet) 400 mg PO BEDTIME [facility] Melatonin (Melatonin 3 Mg Tablet) 6 mg PO BEDTIME PRN PRN Reason: Insomnia Mineral Oil (Mineral Oil Enema 133 Ml Enema) [address] ONCE PRN PRN Reason: Constipation Montelukast Sodium (Montelukast Sodium 10 Mg Tablet) 10 mg PO BEDTIME [facility] Multivitamins/Vitamin C (Multivitamin Tablet) 1 tab PO DAILY [facility] Last Admin: 10/28/23 09:34 Dose: 1 tab Documented By: CHRISTIE Polyethylene Glycol (Polyethylene Glycol 3350 17 Gm Powd.Pack) 17 gm PO BID [facility] Last Admin: 10/28/23 13:24 Dose: Not Given Documented By: CHRISTIE Non-Admin Reason: Patient Refused Sodium Chloride (0.9 % Sodium Chloride Flush 3 Ml Syringe) 3 ml IVFLUSH QSHIFT [facility] Last Admin: 10/28/23 09:35 Dose: 3 ml Documented By: CHRISTIE Labs 10/27/23 13:41 10/28/23 05:42 Labs: Laboratory Results - last 24 hr 10/27/23 10/27/23 10/28/23 15:50 17:50 05:42 Hold Purple Top SEE NOTE Serum Potassium Cancelled Anion Gap 11 L Estim Creat Clear Calc 38.1 Estimated GFR 52 Random Glucose 91 Lactic Acid 1.6 Calcium 8.5 D Microbiology Microbiology Results: Microbiology 10/27/23 17:50 Urine Culture - Final Urine Catheterized - Straight Catheter Assessment and Plan (1) Constipation: Status: Acute Plan Pt is an 88-year-old female with a PMH significant for?COPD chronically on 2-3L home O2, HTN, HLD, HFpEF, paroxysmal AFib not on anticoagulation, hx of ID around 5 years ago, and hypothyroidism who presents to the ED for evaluation of abdominal pain that began earlier today. Pt will be admitted to the hospital under observation for intractable abdominal pain in the setting of constipation. Constipation CT showing constipation resolved. 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 Moraes DVT Prophylaxis: Lovenox dispo - likely return to SNF in am Pt will be admitted to the hospital under observation for treatment and further evaluation of intractable abdominal pain in the setting of constipation. Quality Stroke Does the patient have a stroke diagnosis?: No VTE Prior VTE?: No VTE Risk Level:: Medical - moderate - high VTE Device Contraindication: Treatment Not Indicated VTE Drug Contraindication: N/A - Med Ordered
[2023-10-28] MEDS: cefTRIAXone sodium 1 GM in 0.9 % Sodium Chloride 50 ML IV (15:59)
[2023-10-28] MEDS: Montelukast Sodium 10 MG TABLET PO (20:37)
[2023-10-28] MEDS: Magnesium Oxide 400 MG TABLET PO (20:37)
[2023-10-29] MEDS: 0.9 % Sodium Chloride Flush 3 ML SYRINGE IVFLUSH ×2 (01:02→09:27)
[2023-10-29 04:00] VITALS: BP 158/73; PULSE 87; RESP 16; TEMP 36.1; O2SAT 96
[2023-10-29] MEDS: Levothyroxine Sodium 50 MCG TABLET PO (05:54)
[2023-10-29 07:26] VITALS: BP 146/82; PULSE 93; RESP 18; TEMP 36.3; O2SAT 94
[2023-10-29 09:26] VITALS: BP 146/82
[2023-10-29] MEDS: Furosemide 20 MG TABLET 60 MG PO (09:26)
[2023-10-29] MEDS: Gabapentin 300 MG CAPSULE PO (09:26)
[2023-10-29 09:27] VITALS: BP 146/82
[2023-10-29] MEDS: hydrALAZINE HCl 25 MG TABLET PO (09:27)
[2023-10-29] MEDS: Aspirin Enteric Coated 81 MG TABLET.DR PO (09:27)
[2023-10-29] MEDS: Famotidine 20 MG TABLET PO (09:27)
[2023-10-29] MEDS: polyethylene glycoL 3350 17 GM POWD.PACK PO (09:27)
[2023-10-29] MEDS: amLODIPine Besylate 5 MG TABLET PO (09:27)
[2023-10-29] MEDS: Multivitamin TABLET 1 TAB PO (09:27)
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
--- NOTE | 2023-10-29 11:37 | MHC.CM.PN ---
PATIENT IS RETURNING TO [facility] TODAY FOR 12:15 DONTA TRANSPORTATION. RN AND UNIT AWARE OF PLAN.
== END 2023-10-29 12:39 | disposition skilled nursing facility (03) ==
LOC: HO.ED 20:25 → HO.EDOVER 23:05 → HO.S3 10-28 00:20
PROVIDERS: Admitting Provider Student in an Organized Health Care Education/Training Program; Emergency Provider Student in an Organized Health Care Education/Training Program; PCP Internal Medicine; Visit Provider Physician Assistant Medical
DX: K59.00 Constipation, unspecified (principal); N39.0 Urinary tract infection, site not specified; E87.6 Hypokalemia; R10.9 Unspecified abdominal pain; J44.9 Chronic obstructive pulmonary disease, unspecified; I48.0 Paroxysmal atrial fibrillation; H91.90 Unspecified hearing loss, unspecified ear; E03.9 Hypothyroidism, unspecified; E78.5 Hyperlipidemia, unspecified; I25.2 Old myocardial infarction; I50.30 Unspecified diastolic (congestive) heart failure; N83.201 Unspecified ovarian cyst, right side; I71.40 Abdominal aortic aneurysm, without rupture, unspecified; I11.0 Hypertensive heart disease with heart failure; Z79.899 Other long term (current) drug therapy
CPT/HCPCS: 36415; 74176; 80048; 80053; 81001; 81003; 83605; 83690; 83735; 84132; 85025; 87040; 87086; 93005; 96365; 96366; 96367; 96372; 96375; 96376; 99221; 99285; J0131; J0696; J1650; J2270; J3480

== ENCOUNTER → 2023-10-27 13:10 | Outpatient (BNV) | payer MEDICARE, MEDICAID, SELFPAY | PROVIDERS: Admitting Provider Student in an Organized Health Care Education/Training Program; Emergency Provider Student in an Organized Health Care Education/Training Program; PCP Internal Medicine; Visit Provider Internal Medicine | DX: I49.1 Atrial premature depolarization (principal) | CPT/HCPCS: 93010 ==

== ENCOUNTER 2023-10-27 22:44 | Outpatient (BNV) | payer MEDICARE, MEDICAID, SELFPAY | END 2023-10-28 08:10 | PROVIDERS: Admitting Provider Student in an Organized Health Care Education/Training Program; Emergency Provider Student in an Organized Health Care Education/Training Program; PCP Internal Medicine; Visit Provider Internal Medicine | DX: I49.1 Atrial premature depolarization (principal) | CPT/HCPCS: 93010 ==

== ENCOUNTER → 2023-10-27 22:44 | Outpatient (BNV) | payer MEDICARE, MEDICAID, SELFPAY | PROVIDERS: Admitting Provider Student in an Organized Health Care Education/Training Program; Emergency Provider Student in an Organized Health Care Education/Training Program; PCP Internal Medicine; Visit Provider Physician Assistant Medical | DX: K59.00 Constipation, unspecified (principal); N39.0 Urinary tract infection, site not specified | CPT/HCPCS: 99222; 99232; 99239 ==

== ENCOUNTER 2023-11-06 03:43 | Inpatient (IN) | payer MEDICARE, MEDICAID, SELFPAY ==
[2023-11-06] VITALS (8 sets, daily range): BP systolic 105–171; BP diastolic 56–80; PULSE 60–126; RESP 10–19; TEMP 36.3–36.9; O2SAT 92–96; BMI 20.8
--- NOTE | ~2023-11-06 | US_ITS ---
EXAMINATION: US PELVIS CLINICAL INFORMATION: Pain. COMPARISON: Correlation made with CT scan performed 07/20/2018, 10/27/2023 and 11/06/2023. TECHNIQUE: Ultrasound of the pelvis is performed using both transabdominal transducers along with Doppler. FINDINGS: There has been a prior hysterectomy. Adnexa: The ovaries are not definitively identified. There is a 9.5 x 5.8 x 8.4 cm hypoechoic structure within the right adnexa with some apparent septation. No free fluid within the pelvis. US/US pelvic complete IMPRESSION: Hysterectomy. The ovaries are not seen. 9.5 x 5.8 x 3.4 cm cystic structure within the right adnexa suggesting a cyst/low-grade cystic neoplasm as described on prior CTs.
--- NOTE | ~2023-11-06 | US_ITS ---
EXAMINATION: US PELVIS CLINICAL INFORMATION: Pain. COMPARISON: Correlation made with CT scan performed 07/20/2018, 10/27/2023 and 11/06/2023. TECHNIQUE: Ultrasound of the pelvis is performed using both transabdominal transducers along with Doppler. FINDINGS: There has been a prior hysterectomy. Adnexa: The ovaries are not definitively identified. There is a 9.5 x 5.8 x 8.4 cm hypoechoic structure within the right adnexa with some apparent septation. No free fluid within the pelvis. US/US pelvic ovarian doppler IMPRESSION: Hysterectomy. The ovaries are not seen. 9.5 x 5.8 x 3.4 cm cystic structure within the right adnexa suggesting a cyst/low-grade cystic neoplasm as described on prior CTs.
--- NOTE | ~2023-11-06 | CT_ITS ---
EXAMINATION: CT ABDOMEN AND PELVIS WITHOUT CONTRAST CLINICAL INFORMATION: Pain. COMPARISON: 10/27/2023 TECHNIQUE: Multidetector volumetric imaging was performed from the superior aspect of the liver through the pubic symphysis. Sagittal and coronal reformatted images were obtained on the technologist's workstation. This CT examination was performed using dose optimization techniques as appropriate, variously including the following: *Automated exposure control *Adjustment of mA and/or kV according to patient size (this includes techniques or standardized protocols for targeted exams where dose is matched to indication/reason for exam; i.e. extremities or head) *Use of iterative reconstruction technique DLP: 457 mGy-cm FINDINGS: LUNG BASES: There is atelectatic change/scarring at both lung bases. LIVER, GALLBLADDER, AND BILIARY TREE: The liver is normal in size, shape, and attenuation. No focal hepatic lesion or biliary ductal dilatation is present. The gallbladder is unremarkable with no evidence of radiopaque gallstones, gallbladder wall thickening, or obvious pericholecystic inflammatory changes. PANCREAS: Unremarkable. SPLEEN: Unremarkable. ADRENAL GLANDS: Unremarkable. KIDNEYS AND URETERS: The kidneys are normal in size, shape, and attenuation. No hydronephrosis, hydroureter, or calculi seen. No perinephric stranding. BLADDER: Unremarkable. GASTROINTESTINAL TRACT: There is retained stool. There scattered diverticula throughout without diverticulitis. There is a small hiatal hernia. The appendix is not confidently seen as a separate structure. ABDOMINAL WALL: There is a small umbilical hernia containing fat. LYMPH NODES: Normal. VASCULAR: There is atherosclerotic plaque throughout the abdominal aorta with a stable infrarenal abdominal aortic aneurysm measuring 3.4 cm. PELVIC VISCERA: There is a stable cystic structure within the right adnexa measuring 9 cm. OSSEOUS STRUCTURES: There is a stable 3 compression fracture compared to most recent exams. There is a T11 compression fracture not imaged on prior. CT/CT abdomen pelvis wo IV con IMPRESSION: 1. No acute abnormality within the abdomen or pelvis. 2. Stable infrarenal abdominal aortic aneurysm measuring 3.4 cm. 3. Stable cystic structure within the right adnexa measuring 9 cm. 4. L3 compression fracture similar to previous. T11 compression fracture not imaged on prior exams probably chronic. Fleischner guidelines were followed.
--- NOTE | 2023-11-06 03:46 | ED_ITS ---
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 She comes back tonight with c/o abrupt onset RLQ pain with n/v she is yelling at me and stating give me something. She then states she would have surgery but we have to ask her granddaughter before anything happens and who cares she just wants my money anyways . I tried to ask her more questions but then she states oh shut up you're too young to be a doctor. She is very difficult to get a history from. MD elicited complaint: abdominal pain Pertinent past history: other (known adnexal mass) Onset (ago): hour(s) (3am) Pain Consistency: constant Location: RLQ Severity: severe Quality: stabbing Radiation: none Migration to: no migration Exacerbating factors: movement Relieving factors: nothing Context: history of similar episodes Associated symptoms: nausea and vomiting Related Data Home Medications ?Medication ?Instructions ?Recorded ?Confirmed gabapentin 300 mg capsule 300 mg PO BID Pain 07/13/20 10/27/23 ipratropium bromide 17 2 puff inhalation QID PRN 07/13/20 10/27/23 mcg/actuation HFA aerosol inhaler Shortness Of Breath levothyroxine 50 mcg tablet 50 mcg PO SUTUTHSA@0630 07/13/20 10/27/23 magnesium oxide 400 mg (241.3 mg 400 mg PO BEDTIME 07/13/20 10/27/23 magnesium) tablet levothyroxine 50 mcg tablet 75 mcg PO MOWEFR@0630 05/07/21 10/27/23 famotidine 20 mg tablet 20 mg PO BID 12/21/22 10/27/23 montelukast 10 mg tablet 10 mg PO BEDTIME 12/21/22 10/27/23 multivitamin 1 tab PO DAILY 12/21/22 10/27/23 amlodipine 5 mg tablet 5 mg PO BID 09/12/23 10/27/23 furosemide 20 mg tablet 60 mg PO DAILY 09/28/23 10/27/23 aspirin 81 mg capsule 81 mg PO DAILY 10/27/23 10/27/23 ipratropium 0.5 mg-albuterol 3 mg 3 ml inhalation Q4H PRN Wheezing 10/27/23 10/27/23 (2.5 mg base)/3 mL nebulization soln Previous Rx's ?Medication ?Instructions ?Recorded hydralazine 25 mg tablet 25 mg PO TID #90 tabs 10/05/23 cefuroxime axetil 250 mg tablet 250 mg PO Q12H 4 days #8 tabs 10/29/23 docusate sodium 100 mg capsule 100 mg PO DAILY #1 cap 10/29/23 (Col-Rite) polyethylene glycol 3350 17 17 g PO DAILY #119 grams 10/29/23 gram/dose oral powder (Miralax) Allergies Allergy/AdvReac Type Severity Reaction Status Date / Time adhesive tape [Adhesive Tape] Allergy Unknown RASH Verified 11/06/23 03:53 codeine [Codeine] Allergy Unknown SWELLING Verified 11/06/23 03:53 Iodinated Contrast Media Allergy Unknown UNKNOWN Verified 11/06/23 03:53 [IV Dye, Iodine Containing] iodine [Iodine] Allergy Unknown UNKNOWN Verified 11/06/23 03:53 oxycodone [Percocet] Allergy Unknown unknown Verified 11/06/23 03:53 papaya [Papaya] Allergy Unknown HIVES Verified 11/06/23 03:53 pineapple [Pineapple] Allergy Unknown HIVES Verified 11/06/23 03:53 strawberry [Ailey] Allergy Unknown HIVES Verified 11/06/23 03:53 Codeine Phosphate Allergy Unknown unknown Uncoded 10/27/23 13:04 Novocain Allergy Unknown unknown Uncoded 10/14/23 23:00 From Vicodin AdvReac Unknown NAUSEA & Uncoded 10/14/23 23:00 VOMITING Review of Systems Review of Systems Constitutional : No Weight loss, No Fever, No Chills ENT/Mouth : No sore throat, No Rhinorrhea Eyes: No Swelling, No Redness Cardiovascular : No Chest Pain, No SOB, NoEdema Respiratory : No Cough, No Sputum, No Wheezing Gastrointestinal : Positive Nausea, Positive Vomiting, no Diarrhea, positive abdominal Pain, No Hematochezia, No Melena Genitourinary : No Dysuria, No Urinary Frequency, No Hematuria, No Urgency Musculoskeletal : No joint pain, No Myalgias, No Joint Swelling Skin : No Skin Lesions, No rash Neuro : No Weakness, No Numbness, No Dizziness, No Headache All other systems reviewed and are negative. [facility] Past Medical History Source: old records reviewed Medical History CKD (chronic kidney disease) stage 3, GFR 30-59 ml/min Myocardial infarction Hypothyroidism Hyperlipidemia COPD (chronic obstructive pulmonary disease) HTN (hypertension) PAF (paroxysmal atrial fibrillation) Family History Family History Father History of heart disease Mother History of heart disease Social History Social History Household Members: None Housing: Senior Living Do you presently have visiting nurse or other home services: Yes Alcohol intake: never Comment: Sitter in room Patient Tobacco Use Status: Never used Tobacco Smoked in Last 30 Days: No Advance Directives: Yes Advance Directives on File: Yes Advance Directives Date on File: 05/10/21 Do you have a plan to hurt others: No Plan service: No Current occupational status: retired Physical Exam ED Vital Signs: Vital Signs - 24 hr 11/06/23 03:54 11/06/23 04:37 11/06/23 05:36 Temperature 98.4 F 97.7 F Pulse Rate 94 77 70 Respiratory Rate 19 18 19 Blood Pressure 105/80 130/63 151/70 H Pulse Oximetry 96 94 Oxygen Delivery Method Nasal Cannula Nasal Cannula Nasal Cannula Oxygen Flow Rate 4 4 3 BMI result Body Mass Index 20.8 Appearance: Alert. Oriented X2. yelling out agitated appears in pain moderate acute distress. Eyes: Pupils equal, round and reactive to light. ENT: Pharynx normal. Neck: Normal inspection. Neck supple. CVS: irregular heart rate and rhythm. Pulses normal. Respiratory: No respiratory distress. Breath sounds normal. Abdomen: Soft and severe ttp in RLQ no rebound but grabs hand to palpation Skin: Skin warm and dry. Normal skin color. Normal skin turgor. Extremities: No lower extremity edema. No calf ttp Neuro: Oriented X 2. No motor deficit. No sensory deficit. Hard to follow calling me stupid and young and I cannot be her doctor Course Course Course Narrative: morphine no response cannot get doppler per US tech need better pain control as she is moving around too much IV dilaudid ordered Reevaluation(s) Reevaluation #1: call to HCP Kelley - patient states she will not make any decision about surgery or procedure unless Kelley involved so I left a message. Reevaluation #2: I went to talk to the patient about surgery again and told her I could not get a hold of Kelley the patient then proceeded to put her finger in the air and kept saying ding a ling ding a ling . She then states you have to talk to Dr. Sood I won't do anything unless it's okay with Dr. Sood. Will wait for her HCP to get involved at this point. Reevaluation #3: will attempt to reach family again 2nd attempt to reach Kelley HCP 649am patient is still not making sense when you try to discuss options or plan with her, pain seems to be greatly improved with IV dilaudid. Medical Decision Making Medical Decision Making [facility] Narrative: 88 yo female with PMH of COPD on 2 to 3L NC, PAF not on thinners, HTN, HLD, CHF preserved EF, hypothyroidism, CAD, known R adnexal mass that has been growing since 2019 now 9x9.5cm now with severe RLQ pain that has been worsening and presents with abrupt onset RLQ pain at this time will obtain labs, STAT US to evaluate for torsion, CT scan for rupture, IV morphine ordered. She is not a very good historian and is agitated on arrival. She does not seem to be able to understand my questioning or her medical conditions and keeps referring me to her granddaughter or Dr. Sood for all of her medical decisions and care. Differential Diagnosis Differential Diagnoses: The differential diagnosis associated with the presentation includes cyst rupture, renal colic, ovarian torsion Admission/Observation Consideration of admission/observation: Escalation of care including admission/observation considered signed out to Dr. Mccartney pending K repletion and follow up of HCP discussion Cr fluctuates at baseline up and down Lab Data [facility] Lab Attestation statement: I reviewed the patient's lab results. 11/06/23 04:20 11/06/23 04:20 Labs: Lab Results 11/06/23 11/06/23 Range/Units 04:20 04:21 WBC 7.3 (4.8-10.8) X10*3/uL RBC 3.88 L (4.20-5.50) X10*6/uL Hgb 12.3 (12.0-16.0) g/dl Hct 36.1 L (37.0-47.0) % MCV 93.0 (80.0-98.0) fL MCH 31.7 (27.0-33.0) pg MCHC 34.1 (31.0-35.0) g/dl RDW 13.2 (11.0-16.0) % Plt Count 259 D (160-400) X10*3/uL MPV 10.1 (9.4-12.3) fL Immature Gran % (Auto) 0.8 H (0.0-0.4) % Neut % (Auto) 70.1 (45-73) % Lymph % (Auto) 15.8 L (20-40) % Bennett % (Auto) 9.5 (2-11) % Eos % (Auto) 2.8 (0-4) % Baso % (Auto) 1.0 (0-2) % Lymph # (Auto) 1.2 (1.2-4.9) X10*3/uL Bennett # (Auto) 0.7 (0.1-1.2) X10*3/uL Eos # (Auto) 0.2 (0.0-0.4) X10*3/uL Baso # (Auto) 0.1 (0.0-0.2) X10*3/uL Abs Immat Gran (auto) 0.06 H (0.00-0.03) X10*3/uL Absolute Neuts (auto) 5.1 (2.0-8.3) x10*3/uL Absolute Nucleated RBC 0.000 (0.0-0.012) X10*3/uL Nucleated RBC % (auto) 0.0 (0.0-0.2) /100WBC PT 10.6 L (11.1-13.3) SEC INR 0.9 (0.9-1.1) Sodium 133 L (135-145) mmol/L Potassium 2.9 L* D (3.3-5.1) mmol/L Chloride 85 L (96-108) mmol/L Carbon Dioxide 31 H (22-29) mmol/L Anion Gap 20 (12-20) BUN 16 (9-16) mg/dL Creatinine 1.65 H (0.5-1.4) mg/dL Estim Creat Clear Calc 23.5 Estimated GFR 29 Random Glucose 105 (60-115) mg/dL Lactic Acid 1.0 (0.5-2.0) mmol/L Calcium 9.3 D (8.4-10.2) mg/dL Magnesium 2.3 (1.6-2.6) mg/dL Total Bilirubin 0.8 (0.0-1.0) mg/dL Direct Bilirubin 0.3 (0.0-0.5) mg/dL AST 24 (5-31) U/L ALT 13 (0-31) U/L Alkaline Phosphatase 100 (39-117) U/L Total Protein 6.9 (6.5-8.0) g/dL Albumin 3.3 L (3.5-5.0) g/dL Lipase 31 (8-78) U/L Independent Interpretation I performed an independent interpretation of an: EKG, Ultrasound (no mention of flow states ovaries not seen ) and CT Scan (unchanged CT scans) Interpretation: Rate: 126 Rhythm: afib [place]: left Normal QRS complex. ST T wave : no JULIAN, sig artifact noted - ST depressions lateral leads V4-V6 qTC: 440 prior studies: ST depressions noted today slightly more pronounced The study has been interpreted contemporaneously by me. . Radiology Impression Discussion of test interpretation with radiology: I have reviewed the radiologist's reading. Medications Administered Generic Name Dose Route Start Last Admin Trade Name Freq PRN Reason Stop Dose Admin Potassium Chloride 10 meq in 100 mls @ 100 mls/hr 11/06/23 05:00 11/06/23 06:32 Potassium Chloride/H20 IV 11/06/23 08:59 100 mls/hr Q1H TOBI Administration Discontinued Medications Generic Name Dose Route Start Last Admin Trade Name Freq PRN Reason Stop Dose Admin Hydromorphone HCl 1 mg 11/06/23 04:32 11/06/23 04:35 Hydromorphone Hcl 1 Mg/Ml Syringe IVPUSH 11/06/23 04:33 1 mg ONCE ONE Administration Protocol Morphine Sulfate 4 mg 11/06/23 03:55 11/06/23 04:16 Morphine Sulfate 4 Mg/Ml Cartridge IVPUSH 11/06/23 03:56 4 mg ONCE ONE Administration Protocol Ondansetron HCl 4 mg 11/06/23 03:55 11/06/23 04:16 Ondansetron Hcl 4 Mg/2 Ml Vial IVPUSH 11/06/23 03:56 4 mg ONCE ONE Administration Critical Care Time Critical Care Time Critical Care Time: Yes Total Critical Care Time: 45 Attestation: review of records, multiple phone calls, IV morphine improved pain. I attest to this time spent taking care of the patient Discharge Plan Discharge Clinical Impression: Acute hypokalemia Abdominal pain Qualifiers: Abdominal location: right lower quadrant Qualified Code(s): R10.31 - Right lower quadrant pain Patient Disposition: Still a Patient Prescriptions: No Action levothyroxine 50 mcg tablet 75 mcg PO MOWEFR@0630 furosemide 20 mg Tablet 60 mg PO DAILY hydralazine 25 mg Tablet 25 mg PO TID Qty: 90 0RF Protocol: Hold for SBP< HOLD for SBP < : 90 aspirin 81 mg Capsule 81 mg PO DAILY ipratropium-albuterol 0.5 mg-3 mg(2.5 mg base)/3 mL solution for nebulization 3 ml inhalation Q4H PRN (Reason: Wheezing) cefuroxime axetil 250 mg tablet 250 mg PO Q12H 4 Days Qty: 8 0RF docusate sodium [Col-Rite] 100 mg capsule 100 mg PO DAILY Qty: 1 0RF polyethylene glycol 3350 [Miralax] 17 gram/dose powder 17 g PO DAILY Qty: 119 0RF famotidine 20 mg tablet 20 mg PO BID montelukast 10 mg tablet 10 mg PO BEDTIME multivitamin Tablet 1 tab PO DAILY amlodipine 5 mg tablet 5 mg PO BID levothyroxine 50 mcg tablet 50 mcg PO SUTUTHSA@0630 ipratropium bromide 17 mcg/actuation HFA aerosol inhaler 2 puff inhalation QID PRN (Reason: Shortness Of Breath) gabapentin 300 mg capsule 300 mg PO BID magnesium oxide 400 mg (241.3 mg magnesium) tablet 400 mg PO BEDTIME Print Language: Kyrgyz
--- NOTE | 2023-11-06 03:55 | ECG_ITS ---
Test Reason : ABDOMINAL PAIN Blood Pressure : / mmHG Vent. Rate : 126 BPM Atrial Rate : 000 BPM P-R Int : 000 ms QRS Dur : 066 ms QT Int : 304 ms P-R-T Axes : 000 -11 129 degrees QTc Int : 440 ms Atrial fibrillation with rapid ventricular response with premature ventricular or aberrantly conducted complexes Anterior infarct (cited on or before 28-SEP-2023) ST & T wave abnormality, consider lateral ischemia Abnormal ECG When compared with ECG of 28-OCT-2023 08:10, Atrial fibrillation has replaced Sinus rhythm Questionable change in initial forces of Anteroseptal leads Inverted T waves have replaced nonspecific T wave abnormality in Lateral leads Referred By: Sherry Overton Electronically Signed By:BRISA LUU
[2023-11-06] MEDS: ondansetron HCL 4 MG/2 ML VIAL IVPUSH (04:16)
[2023-11-06] MEDS: Morphine Sulfate 4 MG/ML CARTRIDGE IVPUSH ×2 (04:16→13:30)
[2023-11-06 04:30] LABS: Basophils Absolute Auto 0.1 X10*3/uL (0.0-0.2); Eosinophils Absolute Auto 0.2 X10*3/uL (0.0-0.4); Eosinophils Percent Auto 2.8 % (0-4); Hematocrit 36.1 % (37.0-47.0); Hemoglobin 12.3 g/dl (12.0-16.0); Imm Gran Abs Auto 0.06 X10*3/uL (0.00-0.03); Imm Gran Pct Auto 0.8 % (0.0-0.4); Lymphocytes Absolute Auto 1.2 X10*3/uL (1.2-4.9); Lymphocytes Percent Auto 15.8 % (20-40); MANUAL DIFF FLAG NO; Mean Corpuscular HGB Conc 34.1 g/dl (31.0-35.0); Mean Corpuscular Hemoglobin 31.7 pg (27.0-33.0); Mean Platelet Volume 10.1 fL (9.4-12.3); Monocytes Absolute Auto 0.7 X10*3/uL (0.1-1.2); Monocytes Percent Auto 9.5 % (2-11); Neutrophils Absolute Auto 5.1 x10*3/uL (2.0-8.3); Neutrophils Percent Auto 70.1 % (45-73); Platelet Count 259 X10*3/uL (160-400); Red Blood Count 3.88 X10*6/uL (4.20-5.50); Red Cell Distribution Width 13.2 % (11.0-16.0); White Blood Count 7.3 X10*3/uL (4.8-10.8)
[2023-11-06 04:35] LABS: INTERNATIONAL NORM RATIO 0.9 (0.9-1.1); Prothrombin Time 10.6 SEC (11.1-13.3)
[2023-11-06] MEDS: HYDROmorphone HCl 1 MG/ML SYRINGE IVPUSH (04:35)
[2023-11-06 04:50] LABS: Alanine Aminotransferase 13 U/L (0-31); Albumin Level 3.3 g/dL (3.5-5.0); Alkaline Phosphatase 100 U/L (39-117); Anion Gap 20 (12-20); Aspartate Amino Transferase 24 U/L (5-31); Bilirubin Direct 0.3 mg/dL (0.0-0.5); Bilirubin Total 0.8 mg/dL (0.0-1.0); Blood Urea Nitrogen 16 mg/dL (9-16); Calcium 9.3 mg/dL (8.4-10.2); Carbon Dioxide 31 mmol/L (22-29); Chloride 85 mmol/L (96-108); Creatinine Clr Calc Pharmacy 23.5; Estimated Glomerular Filt Rate 29; Glucose Random 105 mg/dL (60-115); Lipase 31 U/L (8-78); Magnesium 2.3 mg/dL (1.6-2.6); Potassium 2.9 mmol/L (3.3-5.1); Sodium 133 mmol/L (135-145); Total Protein 6.9 g/dL (6.5-8.0)
--- NOTE | 2023-11-06 05:10 | PC.NURSE ---
went to hang potassium IV, pt in Ultrasound
[2023-11-06] MEDS: Potassium Chloride/H20 10 MEQ/100 ML PIGGYBACK 100 MEQ IV ×4 (05:35→11:19)
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
[2023-11-06] MEDS: 0.9 % Sodium Chloride 1,000 ML 100 ML IVCONT (09:09)
--- NOTE | 2023-11-06 09:58 | P.HPHOSP_ITS ---
History of Present Illness Date of Service: 11/06/23 Attending physician on admission: Gerhard Love Chief Complaint: abd pain, vomiting 88-year-old female with a PMH significant for?COPD chronically on 2-3L home O2, HTN, HLD, HFpEF, paroxysmal AFib not on anticoagulation, hx of PR around 5 years ago, R adnexal mass, and hypothyroidism who presents to the ED for evaluation of abdominal pain, nausea and vomiting. She has been experiencing right sided abd pain for an unclear amount of time as patient is a limited historian but was recently admitted for the same 10/26-10/28 thought to be secondary to constipation. She has also had recurrent admissions for RONAK. She does endorse poor po intake and anorexia that has been ongoing for some time per the niece and patient. She states she doesnt like the food at her facility. She is also noted to have a right sided adnexal mass that was initially seen in 2019 but has significantly enlarged now measuring 9.5 x 5.8x3.4 cm noted on today's imaging suspicious for cyst/low grade cystic neoplasm. She is s/p hysterectomy. She describes her pain as right sided abd pain radiating into the pelvis like a hammer . She is oriented x 3 but is somewhat confused at baseline. States she feels like she is having twins or triplets. Per her dickson Benson who ius at bedside and is HCP, mass has not yet been evaluated outpt due to patient being in the skilled nursing and in and out of hospital. She has been vomiting and with dry heaves in the ED. On arrival, VSS now in afib rvr rate low 100s on admission. Remains on baseline supplemental O2. Afebrile. No leukocytosis or anemia. Creat 1.65, baseline 1.01. BUN 16. Na 133, K 2.9, Cl 85, lipase 31. Ct abd/pelvis shows stable infrarenal abd aortic aneurysm at 3.4cm, stable cystic structure within R adnexa measuring 9cm and unchanged L3 compression fracture and new T11 compression fracture. Pelvis U/s shows adnexal mass noted above. In the Ed, has received 1mg hydromorphone, 4mg morphine, 40meq IV KCl, antiemetics, and started on NS @100ml/hr. Per niece was initially confused but mentation has returned to baseline. She will be admitted for further management of RONAK with nausea/vomiting and intractable abd pain Review of Systems 2 Review of Systems: General: No fevers, malaise, unintentional weight loss HEENT: No blurred vision, diplopia. No sore throat, nasal congestion, rhinorrhea, sinus pain, ear pain Cardiovascular: No chest pain, palpitations, or leg edema Respiratory: No shortness of breath, wheezing, cough GI: +abd paion, +nausea, +vomiting. No diarrhea, constipation, melena, hematochezia : No dysuria, hematuria, increased urinary frequency, decreased urinary output MSK: No myalgia, back pain Neuro: No headaches, weakness, paresthesias Skin: No rashes or lesions [facility] Medical History Adnexal mass Abdominal aortic aneurysm CKD (chronic kidney disease) stage 3, GFR 30-59 ml/min Myocardial infarction Hypothyroidism Hyperlipidemia COPD (chronic obstructive pulmonary disease) HTN (hypertension) PAF (paroxysmal atrial fibrillation) Family History Father History of heart disease Mother History of heart disease Social History Household Members: None Housing: Assisted Do you presently have visiting nurse or other home services: Yes Alcohol intake: never Comment: Sitter in room Patient Tobacco Use Status: Never used Tobacco Smoked in Last 30 Days: No Advance Directives: Yes Advance Directives on File: Yes Advance Directives Date on File: 05/10/21 Do you have a plan to hurt others: No Plan service: No Current occupational status: retired Meds Allergies Allergy/AdvReac Type Severity Reaction Status Date / Time adhesive tape [Adhesive Tape] Allergy Unknown RASH Verified 11/06/23 03:53 codeine [Codeine] Allergy Unknown SWELLING Verified 11/06/23 03:53 Iodinated Contrast Media Allergy Unknown UNKNOWN Verified 11/06/23 03:53 [IV Dye, Iodine Containing] iodine [Iodine] Allergy Unknown UNKNOWN Verified 11/06/23 03:53 oxycodone [Percocet] Allergy Unknown unknown Verified 11/06/23 03:53 papaya [Papaya] Allergy Unknown HIVES Verified 11/06/23 03:53 pineapple [Pineapple] Allergy Unknown HIVES Verified 11/06/23 03:53 strawberry [[place]] Allergy Unknown HIVES Verified 11/06/23 03:53 Codeine Phosphate Allergy Unknown unknown Uncoded 10/27/23 13:04 Novocain Allergy Unknown unknown Uncoded 10/14/23 23:00 From Vicodin AdvReac Unknown NAUSEA & Uncoded 10/14/23 23:00 VOMITING Active Medications: Current Medications Sodium Chloride (Ns) 1,000 mls @ 100 mls/hr IVCONT .Q10H TOBI Last Admin: 11/06/23 09:09 Dose: 100 mls/hr Home Medications ?Medication ?Instructions ?Recorded ?Confirmed ?Last Taken ?Type gabapentin 300 mg capsule 300 mg PO BID Pain 07/13/20 10/27/23 12/20/22 History ipratropium bromide 17 2 puff inhalation QID PRN 07/13/20 10/27/23 12/20/22 History mcg/actuation HFA aerosol inhaler Shortness Of Breath levothyroxine 50 mcg tablet 50 mcg PO SUTUTHSA@0630 07/13/20 10/27/23 12/20/22 History magnesium oxide 400 mg (241.3 mg 400 mg PO BEDTIME 07/13/20 10/27/23 12/20/22 History magnesium) tablet levothyroxine 50 mcg tablet 75 mcg PO MOWEFR@0630 05/07/21 10/27/23 12/20/22 History famotidine 20 mg tablet 20 mg PO BID 12/21/22 10/27/23 12/20/22 History montelukast 10 mg tablet 10 mg PO BEDTIME 12/21/22 10/27/23 12/20/22 History multivitamin 1 tab PO DAILY 12/21/22 10/27/23 12/20/22 History amlodipine 5 mg tablet 5 mg PO BID 09/12/23 10/27/23 Unknown History furosemide 20 mg tablet 60 mg PO DAILY 09/28/23 10/27/23 Unknown History aspirin 81 mg capsule 81 mg PO DAILY 10/27/23 10/27/23 Unknown History ipratropium 0.5 mg-albuterol 3 mg 3 ml inhalation Q4H PRN Wheezing 10/27/23 10/27/23 Unknown History (2.5 mg base)/3 mL nebulization soln Physical Exam 2 Vital Signs and Narrative: Vital Signs: Last Vital Signs Temp 97.5 F 11/06/23 07:53 Pulse 126 H 11/06/23 07:53 Resp 10 L 11/06/23 07:53 BP 171/76 H 11/06/23 07:53 Pulse Ox 96 11/06/23 07:53 O2 Del Method Nasal Cannula 11/06/23 07:53 O2 Flow Rate 3 11/06/23 07:53 BMI result Body Mass Index 20.8 Constitutional - Awake and Alert, No apparent distress Eyes - PERRLA, EOMI Cardiovascular - S1S2, irregularly irregular tachcyardic, No edema Respiratory - Normal lung expansion, Normal respiratory effort, No respiratory distress, CTA bilaterally Gastrointestinal - significant R sided abd pain with voluntary guarding. ND; +BS Extremities - no calf tenderness bilaterally, no swelling Skin - Warm/Dry Neurological - Alert & oriented x3, but making nonsensical statement at times. CN II-XII in tact Results Labs 11/06/23 04:20 11/06/23 04:20 Labs: Laboratory Results - last 24 hr 11/06/23 11/06/23 04:20 04:21 MCV 93.0 MCH 31.7 MCHC 34.1 RDW 13.2 Plt Count 259 D MPV 10.1 Immature Gran % (Auto) 0.8 H Neut % (Auto) 70.1 Lymph % (Auto) 15.8 L [place] % (Auto) 9.5 Eos % (Auto) 2.8 Baso % (Auto) 1.0 Lymph # (Auto) 1.2 [place] # (Auto) 0.7 Eos # (Auto) 0.2 Baso # (Auto) 0.1 Abs Immat Gran (auto) 0.06 H Absolute Neuts (auto) 5.1 Absolute Nucleated RBC 0.000 Nucleated RBC % (auto) 0.0 PT 10.6 L INR 0.9 Anion Gap 20 Estim Creat Clear Calc 23.5 Estimated GFR 29 Random Glucose 105 Lactic Acid 1.0 Calcium 9.3 D Magnesium 2.3 Total Bilirubin 0.8 Direct Bilirubin 0.3 AST 24 ALT 13 Alkaline Phosphatase 100 Total Protein 6.9 Albumin 3.3 L Lipase 31 Imaging Radiologist's Impressions: Impressions Abdomen/Pelvis CT 11/06/23 04:35 IMPRESSION: 1. No acute abnormality within the abdomen or pelvis. 2. Stable infrarenal abdominal aortic aneurysm measuring 3.4 cm. 3. Stable cystic structure within the right adnexa measuring 9 cm. 4. L3 compression fracture similar to previous. T11 compression fracture not imaged on prior exams probably chronic. Fleischner guidelines were followed. Doppler Study Ultrasound 11/06/23 05:40 IMPRESSION: Hysterectomy. The ovaries are not seen. 9.5 x 5.8 x 3.4 cm cystic structure within the right adnexa suggesting a cyst/low-grade cystic neoplasm as described on prior CTs. Pelvis Ultrasound 11/06/23 05:40 IMPRESSION: Hysterectomy. The ovaries are not seen. 9.5 x 5.8 x 3.4 cm cystic structure within the right adnexa suggesting a cyst/low-grade cystic neoplasm as described on prior CTs. Assessment and Plan (1) Adnexal mass: Status: Acute (2) Vomiting: Status: Acute (3) RONAK (acute kidney injury): Status: Acute (4) Acute hypokalemia: Status: Acute (5) Abdominal pain: Qualifiers: Abdominal location: right lower quadrant Qualified Code(s): R10.31 - Right lower quadrant pain Status: Acute Plan 88-year-old female with a PMH significant for?COPD chronically on 2-3L home O2, HTN, HLD, HFpEF, paroxysmal AFib not on anticoagulation, hx of PR around 5 years ago, R adnexal mass, and hypothyroidism admitted for further management of RONAK with nausea/vomiting and intractable abd pain. #Acute kidney injury superimposed on ckd stage 3 -likely 2/2 to GI losses with ongoing vomiting -creat 1.6, BUN 16. Baseline creat around 1 -Continue IVF -avoid nephrotoxins -check urine sodium and creat -monitor i&o -UA/UC ordered -follow renal function lytes #Nausea/vomiting -?r/t viral illness vs r/t pain -continue ivf, antiemetics -no diarrhea -follow renal function/lytes #Acute hypokalemia -due to gi losses -repleted in ED -recheck lytes now -continue ivf/antiemetics #Intractable abd pain -likely r/t large R sided adnexal mass/cyst measuring 9.5 x 5.8x3.4 cm suspicious for cyst/low grade cystic neoplasm -[employer] consult -pain management #Parxysmal atrial fibrillation with RVR -not on ac -rate low 100s -initiate metoprolol 25mg BID -monitor on tele #Constipation -bowel regimen #Abdominal aortic aneurism -CT showed AAA increased from 2019, now measuring 3.5 x 3.6 cm -Recommation is for imaging follow-up every 2 years #Hypothyroidism -Continue levothyroxine #HTN -Continue amlodipine, hydralazine. Add metoprolol as above #COPD with chronic hypoxemic respiratory failure -Not in acute exacerbation -Continue home inhalers -continue home O2 DVT prophylaxis- lovenox Full code HCP- Kelley brunson [phone] Pt will require inpt stay at least 2 midnights due to RONAK with hypokalemia r/t GI losses requiring electrolyte repletion, ivf and close monitoring of renal function and lytes. will also require further rate control management and cardiac monitoring Quality Stroke Does the patient have a stroke diagnosis?: No VTE Prior VTE?: No VTE Risk Level:: Medical - moderate - high VTE Device Contraindication: Treatment Not Indicated VTE Drug Contraindication: N/A - Med Ordered
[2023-11-06] MEDS: Metoclopramide HCl 10 MG/2 ML VIAL IVPUSH (10:12)
--- NOTE | 2023-11-06 11:31 | PHA.MEDREC ---
Pharmacy Consult ? Medication Reconciliation Pharmacy has completed the medication reconciliation. Med rec complete [facility]
[2023-11-06] MEDS: Metoprolol Tartrate 25 MG TABLET PO (12:10)
--- NOTE | 2023-11-06 12:11 | PM.GYNCN ---
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 The patient has been experiencing right sided abd pain for an unclear amount of time as patient is a limited historian but was recently admitted for the same 10/26-10/28 thought to be secondary to constipation. She has also had recurrent admissions for RONAK. The patient had poor po intake and anorexia that has been ongoing for some time per the niece and patient. She also have a right sided adnexal mass that was initially seen in 2019 but has significantly enlarged now measuring 9.5 x 5.8x3.4 cm noted on today's imaging suspicious for cyst/low grade cystic neoplasm. She describes her pain as right sided abd pain radiating into the pelvis like a hammer . She is oriented x 3 but is somewhat confused at baseline. States she feels like she is having twins or triplets cc:: CC: BANG Resendez [facility] Past Medical History Medical History (Updated 11/06/23 @ 13:26 by BANG Resendez) Adnexal mass Abdominal aortic aneurysm CKD (chronic kidney disease) stage 3, GFR 30-59 ml/min Myocardial infarction Hypothyroidism Hyperlipidemia COPD (chronic obstructive pulmonary disease) HTN (hypertension) PAF (paroxysmal atrial fibrillation) Family History Family History Father History of heart disease Mother History of heart disease Social History Social History Household Members: None Housing: Correction Do you presently have visiting nurse or other home services: Yes Alcohol intake: never Comment: Sitter in room Patient Tobacco Use Status: Never used Tobacco Smoked in Last 30 Days: No Advance Directives: Yes Advance Directives on File: Yes Advance Directives Date on File: 05/10/21 Do you have a plan to hurt others: No Plan service: No Current occupational status: retired Meds Allergies Allergy/AdvReac Type Severity Reaction Status Date / Time adhesive tape [Adhesive Tape] Allergy Unknown RASH Verified 11/06/23 03:53 codeine [Codeine] Allergy Unknown SWELLING Verified 11/06/23 03:53 Iodinated Contrast Media Allergy Unknown UNKNOWN Verified 11/06/23 03:53 [IV Dye, Iodine Containing] iodine [Iodine] Allergy Unknown UNKNOWN Verified 11/06/23 03:53 oxycodone [Percocet] Allergy Unknown unknown Verified 11/06/23 03:53 papaya [Papaya] Allergy Unknown HIVES Verified 11/06/23 03:53 pineapple [Pineapple] Allergy Unknown HIVES Verified 11/06/23 03:53 strawberry [[place]] Allergy Unknown HIVES Verified 11/06/23 03:53 Codeine Phosphate Allergy Unknown unknown Uncoded 10/27/23 13:04 Novocain Allergy Unknown unknown Uncoded 10/14/23 23:00 From Vicodin AdvReac Unknown NAUSEA & Uncoded 10/14/23 23:00 VOMITING Active Medications: Current Medications Acetaminophen (Acetaminophen 325 Mg Tablet) 650 mg PO Q6H PRN PRN Reason: Pain, Mild (Pain Scale 1-3) Docusate Sodium (Docusate Sodium 100 Mg Capsule) 100 mg PO BID ON LICENSE OF [facility] Enoxaparin Sodium (Enoxaparin Sodium 30 Mg/0.3 Ml Syringe) 30 mg SUBCUT Q24H ON LICENSE OF [facility] Sodium Chloride (Ns) 1,000 mls @ 100 mls/hr IVCONT .Q10H ON LICENSE OF [facility] Last Admin: 11/06/23 09:09 Dose: 100 mls/hr Metoprolol Tartrate (Metoprolol Tartrate 25 Mg Tablet) 25 mg PO BID ON LICENSE OF [facility]; Protocol Morphine Sulfate (Morphine Sulfate 4 Mg/Ml Cartridge) 4 mg IVPUSH Q4H PRN; Protocol PRN Reason: Pain, Severe (Pain Scale 7-10) Ondansetron HCl (Ondansetron Hcl 4 Mg/2 Ml Vial) 4 mg IVPUSH Q8H PRN PRN Reason: Nausea and Vomiting Polyethylene Glycol (Polyethylene Glycol 3350 17 Gm Powd.Pack) 17 gm PO DAILY ON LICENSE OF [facility] Senna (Sennosides 8.6 Mg Tablet) 17.2 mg PO BEDTIME PRN PRN Reason: Constipation Sodium Chloride (0.9 % Sodium Chloride Flush 3 Ml Syringe) 3 ml IVFLUSH QSHIFT ON LICENSE OF [facility] Home Medications ?Medication ?Instructions ?Recorded ?Confirmed ?Last Taken ?Type gabapentin 300 mg capsule 300 mg PO BID Pain 07/13/20 11/06/23 12/20/22 History ipratropium bromide 17 2 puff inhalation QID PRN 07/13/20 11/06/23 12/20/22 History mcg/actuation HFA aerosol inhaler Shortness Of Breath levothyroxine 50 mcg tablet 50 mcg PO SUTUTHSA@0600 07/13/20 11/06/23 12/20/22 History magnesium oxide 400 mg (241.3 mg 400 mg PO BEDTIME 07/13/20 11/06/23 12/20/22 History magnesium) tablet levothyroxine 50 mcg tablet 75 mcg PO MOWEFR@0600 05/07/21 11/06/23 12/20/22 History famotidine 20 mg tablet 20 mg PO BID 12/21/22 11/06/23 12/20/22 History montelukast 10 mg tablet 10 mg PO BEDTIME 12/21/22 11/06/23 12/20/22 History multivitamin 1 tab PO DAILY 12/21/22 11/06/23 12/20/22 History amlodipine 5 mg tablet 5 mg PO BID 09/12/23 11/06/23 Unknown History furosemide 20 mg tablet 60 mg PO DAILY 09/28/23 11/06/23 Unknown History aspirin 81 mg capsule 81 mg PO DAILY 10/27/23 11/06/23 Unknown History ipratropium 0.5 mg-albuterol 3 mg 3 ml inhalation Q4H PRN Wheezing 10/27/23 11/06/23 Unknown History (2.5 mg base)/3 mL nebulization soln acetaminophen 325 mg tablet 650 mg PO Q8H PRN Fever Or Pain 11/06/23 11/06/23 Unknown History 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 Physical Exam Vitals Vital signs: Temp Pulse Resp BP Pulse Ox O2 Del Method O2 Flow Rate 97.5 F 126 H 10 L 171/76 H 96 Nasal Cannula 3 11/06/23 07:53 11/06/23 07:53 11/06/23 07:53 11/06/23 07:53 11/06/23 07:53 11/06/23 07:53 11/06/23 07:53 BMI result Body Mass Index 20.8 Abdomen Auscultation/Inspection/Palpation: Normal bowel sounds, Soft, Non-distended and Tenderness (Right-sided mild tenderness) 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 - Results Labs 11/06/23 04:20 11/06/23 04:20 Labs: Short CBC 11/06/23 Range/Units 04:20 WBC 7.3 (4.8-10.8) X10*3/uL Hgb 12.3 (12.0-16.0) g/dl Hct 36.1 L (37.0-47.0) % Plt Count 259 D (160-400) X10*3/uL BMP 11/06/23 04:20 Sodium 133 L Potassium 2.9 L* D Chloride 85 L Carbon Dioxide 31 H BUN 16 Creatinine 1.65 H Calcium 9.3 D Liver Function 11/06/23 Range/Units 04:20 Total Bilirubin 0.8 (0.0-1.0) mg/dL Direct Bilirubin 0.3 (0.0-0.5) mg/dL AST 24 (5-31) U/L ALT 13 (0-31) U/L Alkaline Phosphatase 100 (39-117) U/L Albumin 3.3 L (3.5-5.0) g/dL Imaging US - abdomen: Radiologist's impression: ITS Impressions Abdomen/Pelvis CT 11/06/23 04:35 IMPRESSION: 1. No acute abnormality within the abdomen or pelvis. 2. Stable infrarenal abdominal aortic aneurysm measuring 3.4 cm. 3. Stable cystic structure within the right adnexa measuring 9 cm. 4. L3 compression fracture similar to previous. T11 compression fracture not imaged on prior exams probably chronic. Fleischner guidelines were followed. Doppler Study Ultrasound 11/06/23 05:40 IMPRESSION: Hysterectomy. The ovaries are not seen. 9.5 x 5.8 x 3.4 cm cystic structure within the right adnexa suggesting a cyst/low-grade cystic neoplasm as described on prior CTs. Pelvis Ultrasound 11/06/23 05:40 IMPRESSION: Hysterectomy. The ovaries are not seen. 9.5 x 5.8 x 3.4 cm cystic structure within the right adnexa suggesting a cyst/low-grade cystic neoplasm as described on prior CTs. Assessment and Plan (1) Adnexal mass: Status: Acute Discussed with the patient and her niece the differential diagnosis of a 9.5 cm complex ovarian cyst including but not limited to but not limited to pre malignancy, malignant and benign causes. In addition, discussed with the patient the possibility of ovarian torsion since the patient is experiencing pelvic pain and vomiting which could be signs and symptoms of ovarian torsion and has not been ruled out by a pelvic ultrasound/Doppler. Given the patient's complex medical history, presents of a large complex ovarian cyst with a suspicion for potential malignancy /low malignant potential, I recommended to transfer the patient to [facility] where [employer] On[facility] service is available. Discussed the case with BANG Donnelly and the urgency of the transfer given the possible differential diagnosis which includes ovarian torsion preop
[2023-11-06] MEDS: Docusate Sodium 100 MG CAPSULE PO (12:13)
[2023-11-06] MEDS: Enoxaparin Sodium 30 MG/0.3 ML SYRINGE SUBCUT (12:13)
[2023-11-06 12:16] LABS: Appearance Urine Turbid; Color Urine Dark Yellow; Glucose Urine UA Negative (Negative); Leukocyte Esterase Urine Large (3+) (Negative); Nitrite Urine Negative (Negative); Specific Gravity - Urine 1.015 (1.005-1.025); UMIC TRIGGER UACC YES; Urine Blood Moderate (2+) (Negative); Urine Ketones Trace mg/dL (Negative); Urine Protein 100 (2+) mg/dL (Neg-Trace)
--- NOTE | 2023-11-06 13:24 | P.DS_ITS ---
DS: Providers Provider Date of Service: 11/06/23 Date of admission: 11/06/23 10:19 Date of discharge: 11/06/23 Primary care physician: Jayjay Sood MD Admitting clinician: Yarely Queen Attending physician on admission: Gerhard Love Consults: 11/06/23 10:41 Consult to Obstetrics / Gynecology Routine Consulting Provider: Cr Jha Reason for consultation: large adnexal mass suspcious for malignancy, intractable pain, anorexia Attending physician on discharge: Gerhard Love Discharging clinician: Yarely Queen DS: Transfer Hospital Acceptance Reason for Transfer: Probable ovarian torsion with 9cm adnexal mass Name of Facility: [facility] Accepting Provider: Dr. Aguilar, DIGITAL STRATEGY SPECIALIST DS: Diagnosis Discharge Diagnosis (1) Adnexal mass: Status: Acute (2) Ovarian torsion: Status: Acute (3) Vomiting: Status: Acute (4) RONAK (acute kidney injury): Status: Acute (5) Acute hypokalemia: Status: Acute (6) Abdominal pain: Status: Acute DS: Summary Hospital Course Hospital Course: HPI on admission by this provider 11/05: 88-year-old female with a PMH significant for?COPD chronically on 2-3L home O2, HTN, HLD, HFpEF, paroxysmal AFib not on anticoagulation, hx of GA around 5 years ago, R adnexal mass, and hypothyroidism who presents to the ED for evaluation of abdominal pain, nausea and vomiting. She has been experiencing right sided abd pain for an unclear amount of time as patient is a limited historian but was recently admitted for the same 10/26-10/28 thought to be secondary to constipation. She has also had recurrent admissions for RONAK. She does endorse poor po intake and anorexia that has been ongoing for some time per the niece and patient. She states she doesnt like the food at her facility. She is also noted to have a right sided adnexal mass that was initially seen in 2019 but has significantly enlarged now measuring 9.5 x 5.8x3.4 cm noted on today's imaging suspicious for cyst/low grade cystic neoplasm. She is s/p hysterectomy. She describes her pain as right sided abd pain radiating into the pelvis like a hammer . She is oriented x 3 but is somewhat confused at baseline. States she feels like she is having twins or triplets. Per her neice Kelley who ius at bedside and is HCP, mass has not yet been evaluated outpt due to patient being in the prison and in and out of hospital. She has been vomiting and with dry heaves in the ED. On arrival, VSS now in afib rvr rate low 100s on admission. Remains on baseline supplemental O2. Afebrile. No leukocytosis or anemia. Creat 1.65, baseline 1.01. BUN 16. Na 133, K 2.9, Cl 85, lipase 31. Ct abd/pelvis shows stable infrarenal abd aortic aneurysm at 3.4cm, stable cystic structure within R adnexa measuring 9cm and unchanged L3 compression fracture and new T11 compression fracture. Pelvis U/s shows adnexal mass noted above. In the Ed, has received 1mg hydromorphone, 4mg morphine, 40meq IV KCl, antiemetics, and started on NS @100ml/hr. Per niece was initially confused but mentation has returned to baseline. She will be admitted for further management of RONAK with nausea/vomiting and intractable abd pain Hospital course: Pt admitted for further management of acute kidney injury with nausea/vomiting and intractable abdominal pain thought to be secondary to large 9 cm adnexal mass with suspicion for underlying malignancy. Given adnexal mass, oyster harvester was consulted who is suspicious of ovarian torsion resulting in the patient's nausea, vomiting vomiting and pain. He is recommending transfer to tertiary care facility for surgical intervention given complex medical history including atrial fibrillation with RVR, abdominal aortic aneurysm measuring 3.4 cm, and RONAK. Prior to oyster harvester consultation, the patient had received p.o. metoprolol and 40 mg Lovenox for DVT prophylaxis. Heart rate on discharge ranging 80s-100 with atrial fibrillation noted on school lunch monitor. The patient has been given IV morphine since admission with good management of pain. She is also found to have UA suspicious for UTI and started on ceftriaxone 1 mg for empiric coverage. Health care proxy, Kelley at bedside who is aware and in agreement with transfer. Case discussed with Dr. Aguilar in DIGITAL STRATEGY SPECIALIST at [facility] who accepts the patient and she will be transferred to med/tele at [facility]. #Large 9cm adnexal mass with concern for cyst/cystic neoplasm and concern for ovarian torsion - seen by oyster harvester recommending transfer to tertiary facility given complicated medical history noted below -discussed with [facility] and pt accepted by Dr. Aguilar as above -keep npo. Did receive 40mg sub cut lovenox for dvt prophylaxis prior to oyster harvester consult -pain management prn #Acute kidney injury superimposed on ckd stage 3 -likely 2/2 to GI losses with ongoing vomiting -creat 1.6, BUN 16. Baseline creat around 1 -Continue IVF -avoid nephrotoxins -check urine sodium and creat -monitor i&o -UA/UC ordered -follow renal function lytes #Nausea/vomiting -?r/t viral illness vs r/t pain -continue ivf, antiemetics -no diarrhea -follow renal function/lytes #Acute hypokalemia -due to gi losses -repleted in ED with 40meq iv kcl -recheck lytes now -continue ivf/antiemetics #Acute UTI -UA with 3+ leukocytes, 2+ blood, urine culture pending -IV ceftriaxone (initiated 11/05) -follow CBC, cultures #Intractable abd pain -likely r/t adnexal mass -DIGITAL STRATEGY SPECIALIST consult -pain management #Paroxysmal atrial fibrillation with RVR -not on ac -rate low 100s -initiate metoprolol 25mg BID -monitor on tele #Constipation -bowel regimen #Abdominal aortic aneurism -CT showed AAA increased from 2019, now measuring 3.5 x 3.6 cm -Recommation is for imaging follow-up every 2 years #Hypothyroidism -Continue levothyroxine #HTN -Continue amlodipine, hydralazine. Add metoprolol as above #COPD with chronic hypoxemic respiratory failure -Not in acute exacerbation -Continue home inhalers -continue home O2 Status at Discharge Overall status at discharge: patient is not back to baseline Time Attestation Discharge Coordination Time (in mins): 50 Quality: Safe Use of Opioids Does Pt have an Active Cancer Diagnosis on the Problem List?: No Quality: Stroke Does the patient have a stroke diagnosis?: No Physical Exam Vital Signs: Vital Signs: Last Vital Signs Temp 97.5 F 11/06/23 07:53 Pulse 108 H 11/06/23 12:14 Resp 18 11/06/23 12:14 BP 121/56 L 11/06/23 12:14 Pulse Ox 92 11/06/23 12:14 O2 Del Method Nasal Cannula 11/06/23 12:14 O2 Flow Rate 3 11/06/23 12:14 BMI result Body Mass Index 20.8 Constitutional - Awake and Alert, weak appearing, No apparent distress Eyes - PERRLA, EOMI Cardiovascular - S1S2, irregularly irregular, regular rate, No edema Respiratory - Normal lung expansion, Normal respiratory effort, No respiratory distress, CTA bilaterally Gastrointestinal - significant right-sided abdominal pain without involuntary guarding. No rigidity. ND; +BS; No rebound - No CVA tenderness Extremities - no calf tenderness bilaterally, no swelling Skin - Warm/Dry Neurological - Alert & oriented x3, but occasionally making nonsensical statements, CN II-XII in tact, intact symmetric strength Psychological - Appropriate affect DS: Data Data Completed and Pending Labs on day of discharge: Laboratory Results - last 24 hr 11/06/23 11/06/23 11/06/23 04:20 04:21 12:00 WBC 7.3 RBC 3.88 L Hgb 12.3 Hct 36.1 L MCV 93.0 MCH 31.7 MCHC 34.1 RDW 13.2 Plt Count 259 D MPV 10.1 Immature Gran % (Auto) 0.8 H Neut % (Auto) 70.1 Lymph % (Auto) 15.8 L [place] % (Auto) 9.5 Eos % (Auto) 2.8 Baso % (Auto) 1.0 Lymph # (Auto) 1.2 [place] # (Auto) 0.7 Eos # (Auto) 0.2 Baso # (Auto) 0.1 Abs Immat Gran (auto) 0.06 H Absolute Neuts (auto) 5.1 Absolute Nucleated RBC 0.000 Nucleated RBC % (auto) 0.0 PT 10.6 L INR 0.9 Sodium 133 L Potassium 2.9 L* D Chloride 85 L Carbon Dioxide 31 H Anion Gap 20 BUN 16 Creatinine 1.65 H Estim Creat Clear Calc 23.5 Estimated GFR 29 Random Glucose 105 Lactic Acid 1.0 Calcium 9.3 D Magnesium 2.3 Total Bilirubin 0.8 Direct Bilirubin 0.3 AST 24 ALT 13 Alkaline Phosphatase 100 Total Protein 6.9 Albumin 3.3 L Lipase 31 Urine Color Dark Yellow Urine Appearance Turbid Urine pH 6.0 Ur Specific [place] 1.015 Urine Protein 100 (2+) H Urine Glucose (UA) Negative Urine Ketones Trace Urine Blood Moderate (2+) H Urine Nitrite Negative Ur Leukocyte Esterase Large (3+) H Discharge Plan Discharge Anticipated Discharge Date/Time: 11/06/23 13:36 Patient Disposition: Xfer Acute Care Hospital Discharge Diagnosis: probable ovarian torsion, adnexal mass, ronak, hypokalemia, afib rvr Referrals: [facility] [Outside] - 1 Week Jayjay Sood MD [Primary Care Provider] - 1 Week Discharge Medications: New ceftriaxone 1 gram Recon Soln 1 g IV Q24H Qty: 1 0RF metoprolol tartrate 25 mg Tablet 25 mg PO BID Qty: 1 0RF Protocol: Hold for SBP/HR < HOLD for SBP < : 90 HOLD for HR < : 60 morphine 4 mg/mL Syringe 4 mg IVPUSH Q4H PRN (Reason: Pain, Severe (Pain Scale 7-10)) Qty: 10 0RF Protocol: Hold for RR < HOLD and contact provider for RR < (bpm): 12 Rx Instructions: Partial Fill upon patient request. ondansetron HCl (PF) 4 mg/2 mL Solution 4 mg IVPUSH Q8H PRN (Reason: Nausea And Vomiting) Qty: 20 0RF Continued levothyroxine 50 mcg tablet 75 mcg PO MOWEFR@0600 furosemide 20 mg Tablet 60 mg PO DAILY hydralazine 25 mg Tablet 25 mg PO TID Qty: 90 0RF Protocol: Hold for SBP< HOLD for SBP < : 90 aspirin 81 mg Capsule 81 mg PO DAILY ipratropium-albuterol 0.5 mg-3 mg(2.5 mg base)/3 mL solution for nebulization 3 ml inhalation Q4H PRN (Reason: Wheezing) docusate sodium [Col-Rite] 100 mg capsule 100 mg PO DAILY Qty: 1 0RF polyethylene glycol 3350 [Miralax] 17 gram/dose powder 17 g PO DAILY Qty: 119 0RF famotidine 20 mg tablet 20 mg PO BID montelukast 10 mg tablet 10 mg PO BEDTIME multivitamin Tablet 1 tab PO DAILY amlodipine 5 mg tablet 5 mg PO BID acetaminophen 325 mg Tablet 650 mg PO Q8H PRN (Reason: Fever Or Pain) levothyroxine 50 mcg tablet 50 mcg PO SUTUTHSA@0600 ipratropium bromide 17 mcg/actuation HFA aerosol inhaler 2 puff inhalation QID PRN (Reason: Shortness Of Breath) gabapentin 300 mg capsule 300 mg PO BID magnesium oxide 400 mg (241.3 mg magnesium) tablet 400 mg PO BEDTIME Discharge Orders: Discharge Order (Routine); Ordered 11/06/23 Ordered By: Yarely Queen Activity on Discharge: As tolerated Stand Alone Forms: Patient Portal Discharge page Print Language: Yi Care Plan Goals: Transfer to [facility] for further management of 9 cm adnexal mass with concern for ovarian torsion Continue IV fluids for RONAK and hypokalemia (K was repleted) Continue IV ceftriaxone for UTI Telemetry monitoring given AFib with RVR, rate controlled on discharge following metoprolol 25 mg p.o. Health Concerns: Large 9 cm adnexal mass Probable ovarian torsion Acute kidney injury Atrial fibrillation with RVR UTI Plan of Treatment: As above Assessment: As above. See discharge summary Discharge Date/Time: 11/06/23 16:16
--- NOTE | 2023-11-06 13:29 | PC.NURSE ---
Kelley phone # [phone] to call when we are sending patient to the [facility].
[2023-11-06] MEDS: cefTRIAXone sodium 1 GM in 0.9 % Sodium Chloride 50 ML IV (13:31)
--- NOTE | 2023-11-06 13:37 | MHC.EDTECH ---
@ [phone] CALL RECEIVED FROM ELIU OF [facility] LINE W/ROOM ASSIGNMENT AND ACCEPTING MD ELIOT BARNARD 6 ROOM 24 RN TO RN: [phone] DR JOSEPH ACCEPTING
[2023-11-06 13:39] LABS: Creatinine Urine 99.29 mg/dL
--- NOTE | 2023-11-06 13:41 | PC.NURSE ---
Attempted to call RN to RN report to [facility], admission RN to call back in 5 mins.
--- NOTE | 2023-11-06 14:08 | PC.NURSE ---
RN to RN phone Report given to Sally Nicholson RN @ [facility].
[2023-11-06 14:45] LABS: Anion Gap 13 (12-20); Blood Urea Nitrogen 18 mg/dL (9-16); Calcium 9.2 mg/dL (8.4-10.2); Carbon Dioxide 34 mmol/L (22-29); Chloride 88 mmol/L (96-108); Creatinine Clr Calc Pharmacy 25.5; Estimated Glomerular Filt Rate 32; Glucose Random 136 mg/dL (60-115); Potassium 3.2 mmol/L (3.3-5.1); Sodium 132 mmol/L (135-145)
--- NOTE | 2023-11-06 15:58 | MHC.EDTECH ---
[facility] truck unavaible for another hour. Ben at [facility] contacted [facility] who will take the pt to [facility]. ETA 430pm.
--- NOTE | 2023-11-06 16:31 | PC.NURSE ---
Verbal report given to [facility], all questions answered. Patient's granddaughter Kelley called, informed her patient is leaving [facility] ED.
--- NOTE | 2023-11-08 07:47 | MHC.CM.PN ---
Patient transferred to [facility] before being seen by case management.
== END 2023-11-06 16:16 | disposition short-term general hospital (02) | DRG 755 ==
LOC: HO.ED 09:47 → HO.EDOVER 10:29
PROVIDERS: Emergency Medicine; Admitting Provider Physician Assistant; Emergency Provider Emergency Medicine; PCP Internal Medicine; Visit Provider Physician Assistant
DX: C56.1 Malignant neoplasm of right ovary (principal); I13.0 Hypertensive heart and chronic kidney disease with heart failure and stage 1 through stage 4 chronic kidney disease, or unspecified chronic kidney disease; I50.32 Chronic diastolic (congestive) heart failure; N83.511 Torsion of right ovary and ovarian pedicle; N17.9 Acute kidney failure, unspecified; J96.11 Chronic respiratory failure with hypoxia; N39.0 Urinary tract infection, site not specified; N18.30 Chronic kidney disease, stage 3 unspecified; K59.00 Constipation, unspecified; E78.5 Hyperlipidemia, unspecified; E03.9 Hypothyroidism, unspecified; E87.6 Hypokalemia; J44.9 Chronic obstructive pulmonary disease, unspecified; I48.0 Paroxysmal atrial fibrillation; I71.43 Infrarenal abdominal aortic aneurysm, without rupture; Z99.81 Dependence on supplemental oxygen; Z91.041 Radiographic dye allergy status; Z79.82 Long term (current) use of aspirin; Z79.890 Hormone replacement therapy; Z79.899 Other long term (current) drug therapy
CPT/HCPCS: 36415; 74176; 76856; 80048; 80076; 81003; 82570; 83605; 83690; 83735; 84300; 85025; 85610; 87040; 87086; 93005; 93975; 99285; J0696; J1170; J1650; J2270; J2405; J2765; J3480

== ENCOUNTER → 2023-11-06 03:55 | Outpatient (BNV) | payer MEDICARE, MEDICAID, SELFPAY | PROVIDERS: Admitting Provider Physician Assistant; Emergency Provider Emergency Medicine; PCP Internal Medicine; Visit Provider Internal Medicine | DX: I48.91 Unspecified atrial fibrillation (principal) | CPT/HCPCS: 93010 ==

== ENCOUNTER → 2023-11-06 10:19 | Outpatient (BNV) | payer MEDICARE, MEDICAID, SELFPAY | PROVIDERS: Admitting Provider Physician Assistant; Emergency Provider Emergency Medicine; PCP Internal Medicine; Visit Provider Physician Assistant | DX: N94.89 Other specified conditions associated with female genital organs and menstrual cycle (principal); R11.10 Vomiting, unspecified; N17.9 Acute kidney failure, unspecified; E87.6 Hypokalemia; R10.31 Right lower quadrant pain | CPT/HCPCS: 99223 ==

== ENCOUNTER → 2023-11-06 10:19 | Outpatient (BNV) | payer MEDICARE, MEDICAID, SELFPAY | PROVIDERS: Admitting Provider Physician Assistant; Emergency Provider Emergency Medicine; PCP Internal Medicine; Visit Provider Obstetrics & Gynecology | DX: N94.89 Other specified conditions associated with female genital organs and menstrual cycle (principal) | CPT/HCPCS: 99223 ==

== ENCOUNTER 2023-11-22 11:33 | Inpatient (IN) | payer MEDICARE, MEDICAID, SELFPAY ==
[2023-11-22] VITALS (8 sets, daily range): BP systolic 81–150; BP diastolic 49–82; PULSE 70–99; RESP 10–18; TEMP 36.4–36.8; O2SAT 92–98; BMI 26.6
--- NOTE | ~2023-11-22 | CT_ITS ---
EXAMINATION: CT ABDOMEN AND PELVIS WITHOUT CONTRAST CLINICAL INFORMATION: Abdominal pain COMPARISON: None available. TECHNIQUE: Multidetector volumetric imaging was performed from the superior aspect of the liver through the pubic symphysis. Sagittal and coronal reformatted images were obtained on the technologist's workstation. This CT examination was performed using dose optimization techniques as appropriate, variously including the following: *Automated exposure control *Adjustment of mA and/or kV according to patient size (this includes techniques or standardized protocols for targeted exams where dose is matched to indication/reason for exam; i.e. extremities or head) *Use of iterative reconstruction technique DLP: 540.51 mGy-cm FINDINGS: CT ABDOMEN LUNG BASES: Curvilinear atelectasis or fibrotic scar is seen along the medial and posterior border of right lung base. Large retrocardiac hiatus hernia is present. LIVER: Liver appears to be grossly normal on noncontrast enhanced images. GALLBLADDER AND BILIARY TREE: Gallbladder could not be visualized. Common bile duct is not dilated. SPLEEN: The spleen is normal in size without focal lesion on noncontrast enhanced images. PANCREAS: The pancreas appears unremarkable on noncontrast enhanced images. ADRENAL GLANDS: Adrenal glands are normal in size without focal lesion bilaterally. KIDNEYS: The visualized bilateral kidneys are normal in size without stones. No caliectasis or dilated pelvis is seen. No dilated ureters are found. BOWELS: There is no abnormal dilatation of the large and small bowel loops. RETROPERITONEUM: No abnormally enlarged retroperitoneal lymph nodes, mass or hematoma could be seen. BLOOD VESSELS: Persistent infrarenal calcified fusiform abdominal aortic aneurysm is seen measuring 3.5 cm in AP diameter, 3.4 cm in width (previously 3.4 cm). ABDOMINAL WALL: Small umbilical hernia containing mesenteric fat is seen. PERITONEUM: There is no ascites. There were no abdominal peritoneal inflammatory changes seen. No free peritoneal air was seen. BONES: There are unchanged marked L3 compression fracture producing almost vertebra planum deformity, severe L5-S1 degenerative lumbar disc disease, grade 1 L4-L5 spondylolisthesis without spondylolysis. Unchanged marked T11 compression fracture is also present. No focal bone lesion diagnostic of metastatic disease could be seen in the lumbar region. CT PELVIS URINARY BLADDER: The visualized urinary bladder is normal, filled with urine. No intraluminal stones are found. No abnormally dilated distal ureters are seen. BOWELS: There is no abnormal dilatation of the large and small bowel loops. Appendix cannot be identified. Multiple diverticula are seen in the sigmoid colon without inflammatory changes. GENITAL ORGANS: A persistent large 9.0 cm right adnexal cystic lesion is seen. No left adnexal mass lesion could be seen. The uterus is surgically absent. LYMPH NODES: No abnormally enlarged iliac or inguinal lymph nodes are seen. PERITONEUM: No inflammatory changes, ascites or free peritoneal air are found in the pelvis. BONES: No fracture or dislocation. No focal bone lesion diagnostic of metastatic disease could be seen in the pelvis. CT/CT abdomen pelvis wo IV con IMPRESSION: 1. Unchanged, No evidence of obstructive uropathy or renal calculi. 2. Unchanged large 9.0 cm right adnexal cystic lesion. 3. Unchanged infrarenal calcified fusiform abdominal aortic aneurysm measuring 3.5 cm in AP diameter, 3.4 cm in width (previously 3.4 cm). 4. Unchanged Large retrocardiac hiatus hernia. 5. Unchanged Small umbilical hernia containing mesenteric fat. 6. Unchanged Sigmoid diverticulosis without inflammatory changes. 7. Unchanged status post cholecystectomy and hysterectomy. 8. Unchanged marked L3 compression fracture producing almost vertebra planum deformity, severe L5-S1 degenerative lumbar disc disease, grade 1 L4-L5 spondylolisthesis without spondylolysis. 9. Unchanged marked T11 compression fracture. Fleischner guidelines were followed.
--- NOTE | ~2023-11-22 | CT_ITS ---
EXAMINATION: CT CHEST WITHOUT CONTRAST CLINICAL INFORMATION: Chest pain COMPARISON: None available. TECHNIQUE: Multidetector volumetric CT imaging of the chest was done. Axial MIP volume rendering provided. Sagittal and coronal reformatted images were obtained. This CT examination was performed using dose optimization techniques as appropriate, variously including the following: *Automated exposure control *Adjustment of mA and/or kV according to patient size (this includes techniques or standardized protocols for targeted exams where dose is matched to indication/reason for exam; i.e. 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 Branching curvilinear fibrosis and subpleural cystic air spaces are seen along the medial and posterior border of right lower lobe. Cluster of paraseptal emphysematous bullae are seen at anterior lateral corner of left lower lobe anteromedial basal segment. Cluster of larger paraseptal emphysematous bullae are seen along the posterior border of right lower lobe superior and posterior basal segments. PLEURA: No pleural effusion or pneumothorax is seen. PERICARDIUM: No pericardial effusion is seen. MEDIASTINUM AND TY: Inadequate evaluation of the mediastinal and hilar lymph nodes due to absence of IV contrast filling the surrounding blood vessels. TRACHEOBRONCHIAL TREE: Trachea and bilateral mainstem bronchi are patent. THORACIC AORTA: The thoracic aorta is normal in size with extensive atherosclerotic calcifications. CORONARY ARTERY CALCIFICATIONS: Present, marked extensive PULMONARY ARTERIES: The main pulmonary arteries appear to be normal in size. CHEST WALL AND LOWER NECK: The subcutaneous and muscular chest wall are intact with no focal lesion. No abnormal mass lesion could be seen in the visualized lower neck. BONES: Marked compression fracture of T11 vertebral body is present. No focal bone lesion diagnostic of metastatic disease could be seen in the thorax. VISUALIZED UPPER ABDOMEN: Bilateral adrenal glands are not enlarged. A large hiatus hernia is present in the retrocardiac region. A 5.5 mm round calcification is seen in right anterior subdiaphragmatic peritoneum. CT/CT chest wo IV con IMPRESSION: 1. 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 2. Branching curvilinear fibrosis and subpleural cystic air spaces are seen along the medial and posterior border of right lower lobe. 3. Large hiatus hernia. 4. Marked compression fracture of T11 vertebral body. Fleischner guidelines were followed.
--- NOTE | 2023-11-22 11:54 | ECG_ITS ---
Test Reason : ABD PAIN Blood Pressure : / mmHG Vent. Rate : 100 BPM Atrial Rate : 000 BPM P-R Int : 000 ms QRS Dur : 074 ms QT Int : 428 ms P-R-T Axes : 000 -06 109 degrees QTc Int : 552 ms Atrial fibrillation Low voltage QRS Septal infarct (cited on or before 28-SEP-2023) ST & T wave abnormality, consider inferior ischemia Abnormal ECG When compared with ECG of 06-NOV-2023 04:04, Questionable change in initial forces of Anteroseptal leads Referred By: Generic ED Physician Electronically Signed By:KELLY KHAN MD
[2023-11-22 12:17] LABS: MANUAL DIFF FLAG NO
[2023-11-22 12:19] LABS: Basophils Absolute Auto 0.1 X10*3/uL (0.0-0.2); Basophils Percent Auto 0.9 % (0-2); Eosinophils Percent Auto 0.5 % (0-4); Hematocrit 38.5 % (37.0-47.0); Hemoglobin 13.3 g/dl (12.0-16.0); Imm Gran Abs Auto 0.04 X10*3/uL (0.00-0.03); Imm Gran Pct Auto 0.5 % (0.0-0.4); Lymphocytes Absolute Auto 1.5 X10*3/uL (1.2-4.9); Lymphocytes Percent Auto 19.2 % (20-40); Mean Corpuscular HGB Conc 34.5 g/dl (31.0-35.0); Mean Corpuscular Hemoglobin 31.3 pg (27.0-33.0); Mean Corpuscular Volume 90.6 fL (80.0-98.0); Mean Platelet Volume 10.1 fL (9.4-12.3); Monocytes Absolute Auto 0.8 X10*3/uL (0.1-1.2); Monocytes Percent Auto 9.8 % (2-11); Neutrophils Absolute Auto 5.4 x10*3/uL (2.0-8.3); Neutrophils Percent Auto 69.1 % (45-73); Platelet Count 343 X10*3/uL (160-400); Red Blood Count 4.25 X10*6/uL (4.20-5.50); Red Cell Distribution Width 13.5 % (11.0-16.0); White Blood Count 7.8 X10*3/uL (4.8-10.8)
--- OUTSIDE RECORDS SUMMARY | 2023-11-22 12:23 | XMS_ITS | Patient Health Record ---
Author Organization [facility] [place] Address [address] [place] [address] Care Team Providers Care Enterprise Account Manager Name Role Phone Jayjay Sood MD Primary Care Provider Jorge Luis Claire Unavailable [phone] ALLERGIES Allergen (clinical drug ingredient) Drug/Non Drug Allergy documented on EMR Reaction Allergy Type Onset Date Status Adhesive Rash Allergy Active Iodine Rash Drug Allergy Active Latex Latex Rash Allergy Active REASON FOR REFERRAL No Information MEDICATIONS Medication SIG (Take, Route, Frequency, Duration) Notes Start Date End Date Status Simvastatin 10 MG 1 tablet in the even ing Orally Once a day for 30 day(s) Active Aspir-81 Active Potassium Gluconate Active Montelukast Sodium 10 MG 1 tablet Orally Once a day for 30 day(s) Active Levothyroxine Sodium 50 MCG 1 tablet in the morning on an empty stomach Orally Once a day for 30 day(s) Active Magnesium 400 MG as directed Orally Active Lisinopril 10 MG 1 tablet Orally Once a day for 30 day(s) Active Vitamin E 400 UNIT 1 capsule Orally Onc e a day for 30 day(s) Active Gabapentin 300 MG 1 capsule Orally Twi ce Daily Active Famotidine 20 MG 1 tablet at bedtime as needed Orally Twice a day Active Furosemide 20 MG 1 tablet Orally Twic e Daily Active Vitamin D 25 MCG (1000 UT) 1 tablet Oral ly 4 times daily Active amLODIPine Besylate 5 MG 1 tablet Orally Twice Daily Active Oscal 500/200 D-3 500-200 MG-UNIT 1 tablet with meals Orally Twice a day for 30 day(s) Active Centrum Women - as directed Orally Active SOCIAL HISTORY Tobacco Use: Social History Observation Description Date Details (start date - stop date) Former Smoker NA - NA Sex Assigned At : Social History Observation Description Sex Assigned At Unknown Tobacco Use/Smoking Question Answer Notes Are you a: former smoker Additional Findings: Tobacco Non-User Current no n-smoker Alcohol Screen Question Answer Notes Did you have a drink containing alcohol in the p ast year? No Points 0 Interpretation Negative Tobacco use other than smoking: Question Answer Notes Are you an other tobacco user? 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, with unspecified presence of clinical manifestation (I70.203) Active confirmed Atherosclerosis of circle arteries of the extremities ([id number]) PLAN OF TREATMENT Pending Test Test Name Order Date [id number] NAIL, 6 OR MORE 08/28/2020 [id number] SKIN LESIONS, 2 TO 4 08/28/19 21 Insurance Providers Payer Name Payer Address Payer Phone Subscriber Number Group Number Insured Name Patient Relationship to Insured Coverage Start Date Coverage End Date Medicare [employer] [address] [place] [address] [id number] Vane Lim Self - patient is the insured MEDICAL (GENERAL) HISTORY Medical History History ICD Code Arthritis asthma Back,Hip,and Knee pain Cancer Headaches/Migraines High blood pressure Lung disease Numbness Poor circulation Measles Mumps Chicken pox Surgical History Surgery Date(Month/Year) tonsillectomy and adenoidectomy appendectomy hysterectomy
[2023-11-22 12:35] LABS: Alanine Aminotransferase 12 U/L (0-31); Albumin Level 3.4 g/dL (3.5-5.0); Alkaline Phosphatase 114 U/L (39-117); Anion Gap 17 (12-20); Aspartate Amino Transferase 27 U/L (5-31); Bilirubin Total 0.7 mg/dL (0.0-1.0); Blood Urea Nitrogen 13 mg/dL (9-16); Calcium 9.6 mg/dL (8.4-10.2); Carbon Dioxide 35 mmol/L (22-29); Chloride 84 mmol/L (96-108); Creatinine Clr Calc Pharmacy 25.2; Estimated Glomerular Filt Rate 31; Glucose Random 112 mg/dL (60-115); Potassium 2.3 mmol/L (3.3-5.1); Sodium 134 mmol/L (135-145); Total Protein 7.2 g/dL (6.5-8.0)
--- NOTE | 2023-11-22 12:41 | ED.GENADULT ---
HPI - General Adult General Chief complaint: Abdominal Pain Stated complaint: ABD PAIN,CONSTIPATION PER EMS Time Seen by Provider: 11/22/23 12:36 History of Present Illness HPI narrative: This is an 88-year-old woman with a past medical history of COPD chronically on 08/12 L home supplemental oxygen, hypertension, hyperlipidemia, lb, paroxysmal atrial fibrillation not on anticoagulation, history of [place] proximally 5 years ago, right adnexal mass, and hypothyroidism who presents for evaluation of abdominal pain. Patient states that she began to have upper abdominal and chest pain today. She reports feeling like there is a ?tractor? on her chest. She states no falls or trauma. She states no cough or fever. She states nausea without emesis. She states no dysuria or urinary frequency/urgency. She reports feeling constipated. She states no diarrhea. Related Data Home Medications ?Medication ?Instructions ?Recorded ?Confirmed gabapentin 300 mg capsule 300 mg PO BID Pain 07/13/20 11/22/23 ipratropium bromide 17 2 puff inhalation QID PRN 07/13/20 11/22/23 mcg/actuation HFA aerosol inhaler Shortness Of Breath levothyroxine 50 mcg tablet 50 mcg PO SUTUTHSA@0600 07/13/20 11/22/23 magnesium oxide 400 mg (241.3 mg 400 mg PO BEDTIME 07/13/20 11/22/23 magnesium) tablet famotidine 20 mg tablet 20 mg PO BID 12/21/22 11/22/23 montelukast 10 mg tablet 10 mg PO BEDTIME 12/21/22 11/22/23 multivitamin 1 tab PO DAILY 12/21/22 11/22/23 amlodipine 5 mg tablet 5 mg PO BID 09/12/23 11/22/23 furosemide 20 mg tablet 60 mg PO DAILY 09/28/23 11/22/23 aspirin 81 mg capsule 81 mg PO DAILY 10/27/23 11/22/23 ipratropium 0.5 mg-albuterol 3 mg 3 ml inhalation Q4H PRN Wheezing 10/27/23 11/22/23 (2.5 mg base)/3 mL nebulization soln acetaminophen 325 mg tablet 650 mg PO Q8H PRN Fever Or Pain 11/06/23 11/22/23 levothyroxine 75 mcg tablet 75 mcg PO MOWEFR@0600 11/22/23 11/22/23 Previous Rx's ?Medication ?Instructions ?Recorded hydralazine 25 mg tablet 25 mg PO TID #90 tabs 10/05/23 docusate sodium 100 mg capsule 100 mg PO DAILY #1 cap 10/29/23 (Col-Rite) polyethylene glycol 3350 17 17 g PO DAILY #119 grams 10/29/23 gram/dose oral powder (Miralax) metoprolol tartrate 25 mg tablet 25 mg PO BID #1 tab 11/06/23 Allergies Allergy/AdvReac Type Severity Reaction Status Date / Time adhesive tape [Adhesive Tape] Allergy Unknown RASH Verified 11/22/23 12:01 codeine [Codeine] Allergy Unknown SWELLING Verified 11/22/23 12:01 Iodinated Contrast Media Allergy Unknown UNKNOWN Verified 11/22/23 12:01 [IV Dye, Iodine Containing] iodine [Iodine] Allergy Unknown UNKNOWN Verified 11/22/23 12:01 oxycodone [Percocet] Allergy Unknown unknown Verified 11/22/23 12:01 papaya [Papaya] Allergy Unknown HIVES Verified 11/22/23 12:01 pineapple [Pineapple] Allergy Unknown HIVES Verified 11/22/23 12:01 strawberry [Strawn] Allergy Unknown HIVES Verified 11/22/23 12:01 Codeine Phosphate Allergy Unknown unknown Uncoded 10/27/23 13:04 Novocain Allergy Unknown unknown Uncoded 10/14/23 23:00 From Vicodin AdvReac Unknown NAUSEA & Uncoded 10/14/23 23:00 VOMITING Review of Systems Review of Systems: ROS as per HPI [facility] Past Medical History Medical History Adnexal mass Abdominal aortic aneurysm CKD (chronic kidney disease) stage 3, GFR 30-59 ml/min Myocardial infarction Hypothyroidism Hyperlipidemia COPD (chronic obstructive pulmonary disease) HTN (hypertension) PAF (paroxysmal atrial fibrillation) Family History Family History Father History of heart disease Mother History of heart disease Social History Social History Household Members: None Housing: Intermediate Do you presently have visiting nurse or other home services: Yes Alcohol intake: never Comment: Sitter in room Patient Tobacco Use Status: Never used Tobacco Smoked in Last 30 Days: No Use of substances other than those prescribed or required for medical reasons: No Advance Directives: Yes Advance Directives on File: Yes Advance Directives Date on File: 10/16/23 Do you have a plan to hurt others: No Plan Nutrition Risks: No Nutritional Risk service: No Current occupational status: retired Physical Exam ED Vital Signs: Vital Signs - 24 hr 11/22/23 11:58 11/22/23 13:57 11/22/23 16:04 Temperature 98.2 F 97.7 F 97.7 F Pulse Rate 71 94 80 Respiratory Rate 16 16 16 Blood Pressure 123/57 L 144/71 H 81/54 L Pulse Oximetry 98 97 97 Oxygen Delivery Method Room Air Nasal Cannula Nasal Cannula Oxygen Flow Rate 2.5 2.5 11/22/23 16:14 11/22/23 17:55 Temperature 98.2 F Pulse Rate 98 79 Respiratory Rate 10 L 18 Blood Pressure 122/64 114/49 L Pulse Oximetry 98 98 Oxygen Delivery Method Nasal Cannula Room Air Oxygen Flow Rate 2 BMI result Body Mass Index 26.6 Gen: NAD, AOx3 HEENT: NCAT, EOMI, normal conjunctiva CV: Irregular rhythm, regular rate Pulm: CTAB, no increased work of breathing GI: Soft, nondistended, positive tenderness to palpation to the epigastrium and right upper quadrant, no peritoneal rigidity Neuro: Grossly non focal, moving all extremities spontaneously Medications Administered Generic Name Dose Route Start Last Admin Trade Name Freq PRN Reason Stop Dose Admin Potassium Chloride 40 meq 11/22/23 19:00 11/22/23 19:44 Potassium Chloride Packet 20 Meq Packet PO 11/22/23 21:01 40 meq Q2H TOBI Administration Discontinued Medications Generic Name Dose Route Start Last Admin Trade Name Freq PRN Reason Stop Dose Admin Potassium Chloride 10 meq in 100 mls @ 100 mls/hr 11/22/23 12:45 11/22/23 17:45 Potassium Chloride/H20 IV 11/22/23 16:44 Infused Q1H TOBI Infusion Sodium Chloride 500 mls @ 500 mls/hr 11/22/23 12:45 11/22/23 13:54 Ns IV 11/22/23 13:44 Infused .Q1H TOBI Infusion Lactated Ringer's 500 mls @ 999 mls/hr 11/22/23 16:30 11/22/23 18:00 Lr IV 11/22/23 17:00 Infused .Q31M TOBI Infusion Morphine Sulfate 2 mg 11/22/23 12:49 11/22/23 13:01 Morphine Sulfate 2 Mg/Ml Cartridge IVPUSH 11/22/23 12:50 2 mg ONCE ONE Administration Protocol Morphine Sulfate 4 mg 11/22/23 14:20 11/22/23 14:30 Morphine Sulfate 4 Mg/Ml Cartridge IVPUSH 11/22/23 14:21 4 mg ONCE ONE Administration Protocol Ondansetron HCl 4 mg 11/22/23 12:49 11/22/23 13:01 Ondansetron Hcl 4 Mg/2 Ml Vial IVPUSH 11/22/23 12:50 4 mg ONCE ONE Administration Medical Decision Making Medical Decision Making MDM Narrative: Differential diagnosis includes, but is not limited to viral syndrome, pneumonia, bowel obstruction, acute kidney injury, dehydration, electrolyte abnormality. Patient is afebrile and hemodynamically stable on room air. I reviewed and interpreted labs, which are notable for hypokalemia potassium of 2.3, repletion is initiated with 10 mEq IV potassium chloride x4. Creatinine appears at baseline 1.57 (previous 1.52 and 1.65). Labs otherwise are benign and reassuring. I reviewed and interpreted EKG, which is unremarkable for any acute findings. Patient tests negative for influenza, RSV and COVID-19. Troponin is 25.9, which may be mildly elevated given that in reviewing triage note patient was found without her home oxygen and this may be demand secondary to hypoxia. Repeat troponin is 22.2. I have very low suspicion for ACS. I discussed patient's care with Clinical Pharmacy Manager, Dr. Abhilash Small, who recommends trending troponin with 3-hour troponin. I discussed serial troponin results as above with cardiology who states this is not consistent with ischemia. CT of the abdomen/pelvis demonstrates a number of unchanged findings as below. CT chest with findings as emphysema, fibrosis, large hiatus hernia and compression fracture of T11 vertebral body. Patient complains of upper abdominal pain and therefore there is low clinical suspicion for urinary tract infection especially given history lacking for dysuria or urinary frequency/urgency and given absence of these symptoms urinalysis is not consistent with urinary tract infection. Patient is treated with 500cc IV NS, 500cc IV LR, 2mg IV morphine, 4mg IV Zofran and 4mg IV morphine. I discussed case and management with admitting hospitalist. Patient is admitted to hospitalist Dr. Weathers for further work up, management and continued electrolyte repletion. Admission/Observation Consideration of admission/observation: Escalation of care including admission/observation considered Consult Healthcare Provider Management of the patient was discussed with: Multimedia Manager (Cardiology - Dr. Abhilash Small ) I discussed patient's care with Clinical Pharmacy Manager, Dr. Abhilash Small, who recommends trending troponin with 3-hour troponin. Lab Data MDM Lab Attestation statement: I reviewed the patient's lab results. 11/22/23 12:10 11/22/23 12:10 Labs: Lab Results 11/22/23 11/22/23 11/22/23 Range/Units 12:10 14:43 16:29 WBC 7.8 (4.8-10.8) X10*3/uL RBC 4.25 (4.20-5.50) X10*6/uL Hgb 13.3 (12.0-16.0) g/dl Hct 38.5 (37.0-47.0) % MCV 90.6 (80.0-98.0) fL MCH 31.3 (27.0-33.0) pg MCHC 34.5 (31.0-35.0) g/dl RDW 13.5 (11.0-16.0) % Plt Count 343 D (160-400) X10*3/uL MPV 10.1 (9.4-12.3) fL Immature Gran % (Auto) 0.5 H (0.0-0.4) % Neut % (Auto) 69.1 (45-73) % Lymph % (Auto) 19.2 L (20-40) % [place] % (Auto) 9.8 (2-11) % Eos % (Auto) 0.5 (0-4) % Baso % (Auto) 0.9 (0-2) % Lymph # (Auto) 1.5 (1.2-4.9) X10*3/uL [place] # (Auto) 0.8 (0.1-1.2) X10*3/uL Eos # (Auto) 0.0 (0.0-0.4) X10*3/uL Baso # (Auto) 0.1 (0.0-0.2) X10*3/uL Abs Immat Gran (auto) 0.04 H (0.00-0.03) X10*3/uL Absolute Neuts (auto) 5.4 (2.0-8.3) x10*3/uL Absolute Nucleated RBC 0.000 (0.0-0.012) X10*3/uL Nucleated RBC % (auto) 0.0 (0.0-0.2) /100WBC Hold Blue Top SEE NOTE Sodium 134 L (135-145) mmol/L Potassium 2.3 L* D (3.3-5.1) mmol/L Chloride 84 L (96-108) mmol/L Carbon Dioxide 35 H (22-29) mmol/L Anion Gap 17 (12-20) BUN 13 (9-16) mg/dL Creatinine 1.57 H (0.5-1.4) mg/dL Estim Creat Clear Calc 25.2 Estimated GFR 31 Random Glucose 112 (60-115) mg/dL Calcium 9.6 (8.4-10.2) mg/dL Magnesium 2.0 (1.6-2.6) mg/dL Total Bilirubin 0.7 (0.0-1.0) mg/dL AST 27 (5-31) U/L ALT 12 (0-31) U/L Alkaline Phosphatase 114 (39-117) U/L Troponin I High Sens 25.9 H 22.2 H (<3.5-17.0) ng/L Total Protein 7.2 (6.5-8.0) g/dL Albumin 3.4 L (3.5-5.0) g/dL Lipase 41 (8-78) U/L Urine Color Yellow Urine Appearance Turbid Urine pH 6.5 (5.0-9.0) Ur Specific [place] 1.015 (1.005-1.025) Urine Protein 100 (2+) H (Neg-Trace) mg/dL Urine Glucose (UA) Negative (Negative) mg/dL Urine Ketones Trace (Negative) mg/dL Urine Blood Small (1+) H (Negative) Urine Nitrite Negative (Negative) Ur Leukocyte Esterase Large (3+) H (Negative) Urine RBC 0-2 (0-2) /HPF Urine WBC >50 H (0-5) /HPF Ur Squamous Epith Cells 6-10 (0-2) /HPF Urine Bacteria 4+ (None Seen) Hyaline Casts 11-20 (0-2) /LPF Influenza Type A (PCR) NEGATIVE (Negative) Influenza Type B (PCR) NEGATIVE (Negative) RSV RNA Qual (PCR) NEGATIVE (Negative) SARS-CoV-2 RNA (RT-PCR) NEGATIVE (Negative) Independent Interpretation I performed an independent interpretation of an: EKG Interpretation: EKG shows atrial fibrillation 100 beats per minute, no STEMI (compared to prior EKG November 06, 2023 there are no diagnostic ischemic changes and heart rate is decreased) Radiology Impression Discussion of test interpretation with radiology: I have reviewed the radiologist's reading. Radiologist Impression: CT/CT chest wo IV con IMPRESSION: 1. 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 2. Branching curvilinear fibrosis and subpleural cystic air spaces are seen along the medial and posterior border of right lower lobe. 3. Large hiatus hernia. 4. Marked compression fracture of T11 vertebral body. Fleischner guidelines were followed. Dictated By: Dakota Gamez Signed By: <Electronically signed by Dakota Gamez in [place]> 11/22/23 16511/22/[address]/CT abdomen pelvis wo IV con IMPRESSION: 1. Unchanged, No evidence of obstructive uropathy or renal calculi. 2. Unchanged large 9.0 cm right adnexal cystic lesion. 3. Unchanged infrarenal calcified fusiform abdominal aortic aneurysm measuring 3.5 cm in AP diameter, 3.4 cm in width (previously 3.4 cm). 4. Unchanged Large retrocardiac hiatus hernia. 5. Unchanged Small umbilical hernia containing mesenteric fat. 6. Unchanged Sigmoid diverticulosis without inflammatory changes. 7. Unchanged status post cholecystectomy and hysterectomy. 8. Unchanged marked L3 compression fracture producing almost vertebra planum deformity, severe L5-S1 degenerative lumbar disc disease, grade 1 L4-L5 spondylolisthesis without spondylolysis. 9. Unchanged marked T11 compression fracture. Fleischner guidelines were followed. Dictated By: Dakota Gamez Signed By: <Electronically signed by Dakota Gamez in [place]> 11/22/23 1652 External Record Review External record reviewed: Outpatient record I reviewed discharge note from [facility] for admission on November 06, 2023 and discharged on November 08, 2023. Per discharge note patient was transferred there for right adnexal mass in the setting of nausea/vomiting and abdominal pain with concern for ovarian torsion. Patient was seen by gynecology and felt that there was low concern for malignacy or ovarian torsion and that she would not be a surgical candidate. She was discharged back to rehab. She was evaluated by OBGYN and her tumor markers are within normal limits. It was felt that the ovarian cyst was likely benign and no further workup was recommended. She was evaluated by neurosurgery for T11 compression fracture who stated fracture was NOT NEW and there was no intervention required. Discharge Plan Discharge Clinical Impression: Abdominal pain, Hypokalemia Patient Disposition: Admitted As Inpatient
[2023-11-22 12:54] LABS: Lipase 41 U/L (8-78)
[2023-11-22] MEDS: ondansetron HCL 4 MG/2 ML VIAL IVPUSH ×2 (13:01→22:56)
[2023-11-22] MEDS: 0.9 % Sodium Chloride 500 ML IV (13:01)
[2023-11-22] MEDS: Morphine Sulfate 2 MG/ML CARTRIDGE IVPUSH (13:01)
[2023-11-22] MEDS: Potassium Chloride/H20 10 MEQ/100 ML PIGGYBACK 100 MEQ IV ×4 (13:01→16:33)
[2023-11-22 13:04] LABS: Influenza A PCR NEGATIVE (Negative); Influenza B PCR NEGATIVE (Negative); Resp Syncy Virus RNA Qual PCR NEGATIVE (Negative); SARS COV2 PCR INHOUSE NEGATIVE (Negative)
[2023-11-22 13:12] LABS: Troponin-I High Sensitivity 25.9 ng/L (<3.5-17.0)
[2023-11-22] MEDS: Morphine Sulfate 4 MG/ML CARTRIDGE IVPUSH (14:30)
[2023-11-22 15:08] LABS: Troponin-I High Sensitivity 22.2 ng/L (<3.5-17.0)
[2023-11-22] MEDS: Lactated Ringers 500 ML 999 ML IV (16:33)
[2023-11-22 16:36] LABS: Appearance Urine Turbid; Color Urine Yellow; Glucose Urine UA Negative (Negative); Leukocyte Esterase Urine Large (3+) (Negative); Nitrite Urine Negative (Negative); PH 6.5 (5.0-9.0); Specific Gravity - Urine 1.015 (1.005-1.025); UMIC TRIGGER UACC YES; Urine Blood Small (1+) (Negative); Urine Ketones Trace mg/dL (Negative); Urine Protein 100 (2+) mg/dL (Neg-Trace)
[2023-11-22 17:11] LABS: Bacteria Urine 4+ (None Seen); RBC Urine 0-2 /HPF (0-2); UACC Culture Trigger YES; WBC Urine >50 /HPF (0-5)
--- NOTE | 2023-11-22 17:58 | MHC.EDTECH ---
Chemistry called and ensured the UA cultures would be added onto the tube after rn added add on order, rn made aware
--- NOTE | 2023-11-22 18:37 | PM.IMHP ---
History of Present Illness Date of Service: 11/22/23 <BANG Pelletier - Last Filed: 11/22/23 20:43> Attending physician on admission: Leslie Stoddard <BANG Pelletier - Last Filed: 11/22/23 20:43> Chief Complaint: Abd pain, contipation <BANG Pelletier - Last Filed: 11/22/23 20:43> Pt is an 88-year-old female with a PMH significant for?COPD chronically on 2-3L home O2, HTN, HLD, HFpEF, paroxysmal AFib not on anticoagulation, hx of MA around 5 years ago, right renal mass suspicious for malignancy, and hypothyroidism who presents to the ED from [facility] for evaluation of chest and abdominal pain. Patient is alert and oriented x4, but with some underlying confusion. Pt is rather vague and at times imprecise about symptoms, but reports experiencing chest and abdominal pain that began around 9-10 p.m. last night. Patient describes chest pain as constant, and feeling like a ?dull tractor-trailer? was sitting on her chest. Is much less precise about abdominal pain which she can only describe as as ?really hurting?. Some nausea but no vomiting. Reports she has been feeling weird , lost , and not like myself for past few months. Endorses anorexia, not feeling like eating or drinking, and with increased fatigue. Denies diarrhea or constipation. No polyuria or dysuria. In the ED pt had elevated HR of 98, and soft BP as low as 81/54. Labs were significant for sodium 134, potassium 2.3, chloride 84, carbon dioxide 35, creatinine 1.57 (around baseline), albumin 3.4, and initial troponin 25.9 with repeat 22.2. UA similar to past which showed urogenital contamination. Tested negative COVID, RSV, flu. 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 CT?of abdomen and pelvis negative for acute abdomen, but with numerous incidental findings all unchanged from previous. EKG demonstrated atrial fibrillation with prolonged QTc of 552. Pt was treated with potassium chloride 40 meq IV, IVF, ondansetron, and morphine. Pt will be admitted to the hospital for treatment and further evaluation of hypokalemia and elevated troponins. <BANG Pelletier - Last Filed: 11/22/23 20:43> Review of Systems Review of Systems: Chest pain Abdominal pain Nausea, no vomiting Denies diarrhea or constipation No Polyuria or dysuria Denies fever Chronic shortness of breath at baseline No increased cough <BANG Pelletier - Last Filed: 11/22/23 20:43> [facility] Medical History: Medical History Adnexal mass Abdominal aortic aneurysm CKD (chronic kidney disease) stage 3, GFR 30-59 ml/min Myocardial infarction Hypothyroidism Hyperlipidemia COPD (chronic obstructive pulmonary disease) HTN (hypertension) PAF (paroxysmal atrial fibrillation) <BANG Pelletier - Last Filed: 11/22/23 20:43> Family History: Family History Father History of heart disease Mother History of heart disease <BANG Pelletier - Last Filed: 11/22/23 20:43> Social History: Social History Household Members: None Housing: Group Home Do you presently have visiting nurse or other home services: Yes Alcohol intake: never Comment: Sitter in room Patient Tobacco Use Status: Never used Tobacco Advance Directives Date on File: 10/16/23 service: No Current occupational status: retired <BANG Pelletier - Last Filed: 11/22/23 20:43> Meds Allergies/Adverse reactions: Allergies Allergy/AdvReac Type Severity Reaction Status Date / Time adhesive tape [Adhesive Tape] Allergy Unknown RASH Verified 11/22/23 12:01 codeine [Codeine] Allergy Unknown SWELLING Verified 11/22/23 12:01 Iodinated Contrast Media Allergy Unknown UNKNOWN Verified 11/22/23 12:01 [IV Dye, Iodine Containing] iodine [Iodine] Allergy Unknown UNKNOWN Verified 11/22/23 12:01 oxycodone [Percocet] Allergy Unknown unknown Verified 11/22/23 12:01 papaya [Papaya] Allergy Unknown HIVES Verified 11/22/23 12:01 pineapple [Pineapple] Allergy Unknown HIVES Verified 11/22/23 12:01 strawberry [[place]] Allergy Unknown HIVES Verified 11/22/23 12:01 Codeine Phosphate Allergy Unknown unknown Uncoded 10/27/23 13:04 Novocain Allergy Unknown unknown Uncoded 10/14/23 23:00 From Vicodin AdvReac Unknown NAUSEA & Uncoded 10/14/23 23:00 VOMITING <BANG Pelletier - Last Filed: 11/22/23 20:43> Home medications: Home Medications ?Medication ?Instructions ?Recorded ?Confirmed ?Last Taken ?Type gabapentin 300 mg capsule 300 mg PO BID Pain 07/13/20 11/22/23 12/20/22 History ipratropium bromide 17 2 puff inhalation QID PRN 07/13/20 11/22/23 12/20/22 History mcg/actuation HFA aerosol inhaler Shortness Of Breath levothyroxine 50 mcg tablet 50 mcg PO SUTUTHSA@0600 07/13/20 11/22/23 12/20/22 History magnesium oxide 400 mg (241.3 mg 400 mg PO BEDTIME 07/13/20 11/22/23 12/20/22 History magnesium) tablet famotidine 20 mg tablet 20 mg PO BID 12/21/22 11/22/23 12/20/22 History montelukast 10 mg tablet 10 mg PO BEDTIME 12/21/22 11/22/23 12/20/22 History multivitamin 1 tab PO DAILY 12/21/22 11/22/23 12/20/22 History amlodipine 5 mg tablet 5 mg PO BID 09/12/23 11/22/23 Unknown History furosemide 20 mg tablet 60 mg PO DAILY 09/28/23 11/22/23 11/22/23 History aspirin 81 mg capsule 81 mg PO DAILY 10/27/23 11/22/23 Unknown History ipratropium 0.5 mg-albuterol 3 mg 3 ml inhalation Q4H PRN Wheezing 10/27/23 11/22/23 Unknown History (2.5 mg base)/3 mL nebulization soln acetaminophen 325 mg tablet 650 mg PO Q8H PRN Fever Or Pain 11/06/23 11/22/23 Unknown History levothyroxine 75 mcg tablet 75 mcg PO MOWEFR@0600 11/22/23 11/22/23 Unknown History <BANG Pelletier - Last Filed: 11/22/23 20:43> Physical Exam Vital Signs and Narrative: Vital Signs: Last Vital Signs Temp 98.2 F 11/22/23 17:55 Pulse 79 11/22/23 17:55 Resp 18 11/22/23 17:55 BP 114/49 L 11/22/23 17:55 Pulse Ox 98 11/22/23 17:55 O2 Del Method Room Air 11/22/23 17:55 O2 Flow Rate 2 11/22/23 16:14 BMI result Body Mass Index 26.6 <BANG Pelletier - Last Filed: 11/22/23 20:43> Constitutional: Alert, in no acute distress. Mental Status: Oriented to person, place, time, and situation. Eyes: Pupils are equal, round, and reactive to light. Ear, Nose, and Throat: Oropharynx clear, mucous membranes moist. Ears and nose without deformities. Trachea midline. Respiratory: Diminished but clear to auscultation bilaterally. No wheezing, rales, or rhonchi. Cardiovascular: Irregularly irregular rhythm. No murmurs, rubs, or gallops. Gastrointestinal: Abdomen soft, non-distended, non-tender. Normoactive bowel sounds. Reducible umbilical hernia noted. Neurologic: Cranial nerves II-XII are grossly intact bilaterally. No focal neurological deficits. Moves all extremities spontaneously. Skin: Warm, dry. Extremities: No edema. <BANG Pelletier - Last Filed: 11/22/23 20:43> Results Labs CBC and Chem 7: 11/22/23 12:10 11/23/23 04:15 <BANG Pelletier - Last Filed: 11/22/23 20:43> Labs: Laboratory Results - last 24 hr 11/22/23 11/22/23 11/22/23 12:10 14:43 16:29 MCV 90.6 MCH 31.3 MCHC 34.5 RDW 13.5 Plt Count 343 D MPV 10.1 Immature Gran % (Auto) 0.5 H Neut % (Auto) 69.1 Lymph % (Auto) 19.2 L [place] % (Auto) 9.8 Eos % (Auto) 0.5 Baso % (Auto) 0.9 Lymph # (Auto) 1.5 [place] # (Auto) 0.8 Eos # (Auto) 0.0 Baso # (Auto) 0.1 Abs Immat Gran (auto) 0.04 H Absolute Neuts (auto) 5.4 Absolute Nucleated RBC 0.000 Nucleated RBC % (auto) 0.0 Hold Blue Top SEE NOTE Anion Gap 17 Estim Creat Clear Calc 25.2 Estimated GFR 31 Random Glucose 112 Calcium 9.6 Magnesium 2.0 Total Bilirubin 0.7 AST 27 ALT 12 Alkaline Phosphatase 114 Troponin I High Sens 25.9 H 22.2 H Total Protein 7.2 Albumin 3.4 L Lipase 41 Urine Color Yellow Urine Appearance Turbid Urine pH 6.5 Ur Specific [place] 1.015 Urine Protein 100 (2+) H Urine Glucose (UA) Negative Urine Ketones Trace Urine Blood Small (1+) H Urine Nitrite Negative Ur Leukocyte Esterase Large (3+) H Urine RBC 0-2 Urine WBC >50 H Ur Squamous Epith Cells 6-10 Urine Bacteria 4+ Hyaline Casts 11-20 Influenza Type A (PCR) NEGATIVE Influenza Type B (PCR) NEGATIVE RSV RNA Qual (PCR) NEGATIVE SARS-CoV-2 RNA (RT-PCR) NEGATIVE <BANG Pelletier - Last Filed: 11/22/23 20:43> Imaging Radiologist's Impressions: Impressions Abdomen/Pelvis CT 11/22/23 13:53 IMPRESSION: 1. Unchanged, No evidence of obstructive uropathy or renal calculi. 2. Unchanged large 9.0 cm right adnexal cystic lesion. 3. Unchanged infrarenal calcified fusiform abdominal aortic aneurysm measuring 3.5 cm in AP diameter, 3.4 cm in width (previously 3.4 cm). 4. Unchanged Large retrocardiac hiatus hernia. 5. Unchanged Small umbilical hernia containing mesenteric fat. 6. Unchanged Sigmoid diverticulosis without inflammatory changes. 7. Unchanged status post cholecystectomy and hysterectomy. 8. Unchanged marked L3 compression fracture producing almost vertebra planum deformity, severe L5-S1 degenerative lumbar disc disease, grade 1 L4-L5 spondylolisthesis without spondylolysis. 9. Unchanged marked T11 compression fracture. Fleischner guidelines were followed. Chest CT 11/22/23 13:53 IMPRESSION: 1. 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 2. Branching curvilinear fibrosis and subpleural cystic air spaces are seen along the medial and posterior border of right lower lobe. 3. Large hiatus hernia. 4. Marked compression fracture of T11 vertebral body. Fleischner guidelines were followed. <BANG Pelletier - Last Filed: 11/22/23 20:43> Assessment and Plan (1) Hypokalemia: Status: Acute <BANG Pelletier - Last Filed: 11/22/23 20:43> Pt is an 88-year-old female with a PMH significant for?COPD chronically on 2-3L home O2, HTN, HLD, HFpEF, paroxysmal AFib not on anticoagulation, hx of MA around 5 years ago, right renal mass suspicious for malignancy, and hypothyroidism who presents to the ED from [facility] for evaluation of chest and abdominal pain. Pt will be admitted to the hospital for treatment and further evaluation of hypokalemia and elevated troponins. Hypokalemia Potassium 2.3 at time of presentation Likely secondary to furosemide in the setting of reduced p.o. intake Patient received potassium chloride 40 mEq IV in the ED Will give additional 40 mEq q.2h x2 doses Hold home furosemide, consider decreased dose at discharge Follow BMP Monitor on telemetry Elevated troponins Initial troponin 25.9 with repeat flat at 22.2, similar to previous troponins EKG showing atrial fibrillation without significant ischemic changes Most likely type 2 in the setting of increased demand Monitor on telemetry Abnormal UA UA positive for protein, blood, leukocyte esterase, wbc's >50, 6-10 squamous epithelial cells, 4+ bacteria UA similar to previous UAs which showed urogenital contamination Patient asymptomatic Likely colonized, will hold on antibiotics for now Follow cultures Paroxysmal AFib with prolonged QTc EKG showing AFib with QTC of 552 Recent EKGs showed normal sinus rhythm with PACs Patient currently not anticoagulated Continue metoprolol Will monitor on telemetry Avoid QT-prolonging agents Will get repeat EKG Diet Patient failed nursing swallow screen with difficulty swallowing NPO pending official speech and swallow evaluation Pelvic cyst CT showing 9 x 9.5 cm right pelvic cyst Increased from size in 2019, concerning for low-grade cystic neoplasm Follow-up outpatient for possible further workup Abdominal aortic aneurism CT showed AAA increased from 2019, now measuring 3.5 x 3.6 cm Recommendation is for imaging follow-up every 2 years Hypothyroidism Continue levothyroxine HTN Continue amlodipine, hydralazine COPD Not in acute exacerbation Continue home inhalers Full Code Attending:? DVT Prophylaxis: Lovenox Patient will require at least a 2 night hospital stay for treatment and further evaluation of hypokalemia. Given patient's level of reduced potassium, they will require hospitalization for close monitoring of labs, cardiac function, and electrolyte repletion as necessary. <BANG Pelletier - Last Filed: 11/22/23 20:43> Pt is an 88-year-old female with a PMH significant for?COPD chronically on 2-3L home O2, HTN, HLD, HFpEF, paroxysmal AFib not on anticoagulation, hx of MA around 5 years ago, right renal mass suspicious for malignancy, and hypothyroidism who presents to the ED from [facility] for evaluation of chest and abdominal pain. Pt will be admitted to the hospital for treatment and further evaluation of hypokalemia and elevated troponins. Acute Hypokalemia Potassium 2.3 at time of presentation Likely secondary to furosemide in the setting of reduced p.o. intake Patient received potassium chloride 40 mEq IV in the ED Will give additional 40 mEq q.2h x2 doses Hold home furosemide, consider decreased dose at discharge Follow BMP Monitor on telemetry Elevated troponins Initial troponin 25.9 with repeat flat at 22.2, similar to previous troponins EKG showing atrial fibrillation without significant ischemic changes Most likely type 2 in the setting of increased demand Monitor on telemetry Abnormal UA UA positive for protein, blood, leukocyte esterase, wbc's >50, 6-10 squamous epithelial cells, 4+ bacteria UA similar to previous UAs which showed urogenital contamination Patient asymptomatic Likely colonized, will hold on antibiotics for now Follow cultures Paroxysmal AFib with prolonged QTc EKG showing AFib with QTC of 552 Recent EKGs showed normal sinus rhythm with PACs Patient currently not anticoagulated Continue metoprolol Will monitor on telemetry Avoid QT-prolonging agents Will get repeat EKG Diet Patient failed nursing swallow screen with difficulty swallowing NPO pending official speech and swallow evaluation Pelvic cyst CT showing 9 x 9.5 cm right pelvic cyst Increased from size in 2019, concerning for low-grade cystic neoplasm Follow-up outpatient for possible further workup Abdominal aortic aneurism CT showed AAA increased from 2019, now measuring 3.5 x 3.6 cm Recommendation is for imaging follow-up every 2 years Hypothyroidism Continue levothyroxine HTN Continue amlodipine, hydralazine COPD Not in acute exacerbation Continue home inhalers Full Code Attending:?Dr.Abuhashmeh DVT Prophylaxis: Lovenox Patient will require at least a 2 night hospital stay for treatment and further evaluation of hypokalemia. Given patient's level of reduced potassium, they will require hospitalization for close monitoring of labs, cardiac function, and electrolyte repletion as necessary. <Leslie Stoddard MD - Last Filed: 11/24/23 12:54> Quality Stroke Does the patient have a stroke diagnosis?: No <BANG Pelletier - Last Filed: 11/22/23 20:43> VTE Prior VTE?: No <BANG Pelletier - Last Filed: 11/22/23 20:43> VTE Risk Level:: Medical - moderate - high <BANG Pelletier - Last Filed: 11/22/23 20:43> VTE Device Contraindication: Treatment Not Indicated <BANG Pelletier - Last Filed: 11/22/23 20:43> VTE Drug Contraindication: N/A - Med Ordered <BANG Pelletier - Last Filed: 11/22/23 20:43>
--- NOTE | 2023-11-22 18:38 | PC.NURSE ---
Patient resting quietly on stretcher at this time, awaiting admit orders.
[2023-11-22] MEDS: Potassium Chloride Packet 20 MEQ PACKET 40 MEQ PO ×2 (19:44→20:26)
[2023-11-22] MEDS: Enoxaparin Sodium 30 MG/0.3 ML SYRINGE SUBCUT (20:27)
--- NOTE | 2023-11-22 21:17 | PC.NURSE ---
Addendum entered by Gabriella Umana RN 11/22/23 21:22: provider to order standing straight cath order for BS > 350. Original Note: Patient has not voided on her own since admission, Bladder scanned patient for 310, informed admitting provider Thor.
[2023-11-22] MEDS: Montelukast Sodium 10 MG TABLET PO (23:52)
[2023-11-22] MEDS: amLODIPine Besylate 5 MG TABLET PO (23:52)
[2023-11-22] MEDS: Metoprolol Tartrate 25 MG TABLET PO (23:52)
--- NOTE | 2023-11-22 23:58 | PC.NURSE ---
meds given with pudding. tolerated well.
--- NOTE | 2023-11-23 02:42 | PC.NURSE ---
Bladder scan showing >360 ml in bladder. 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 75 ml cloudy yellow urine recovered with large amounts of sediment noted.
[2023-11-23 05:29] LABS: Anion Gap 18 (12-20); Blood Urea Nitrogen 11 mg/dL (9-16); Calcium 9.3 mg/dL (8.4-10.2); Carbon Dioxide 27 mmol/L (22-29); Chloride 92 mmol/L (96-108); Creatinine Clr Calc Pharmacy 30.9; Estimated Glomerular Filt Rate 39; Glucose Random 100 mg/dL (60-115); Potassium 4.3 mmol/L (3.3-5.1); Sodium 133 mmol/L (135-145)
[2023-11-23 05:52] VITALS: BP 157/65; PULSE 75; RESP 12; TEMP 36.4; O2SAT 99
--- NOTE | 2023-11-23 07:26 | PHA.MEDREC ---
Pharmacy Consult ? Medication Reconciliation Pharmacy has completed the medication reconciliation.
--- NOTE | 2023-11-23 08:00 | ECG_ITS ---
Test Reason : prolong QTC Blood Pressure : / mmHG Vent. Rate : 087 BPM Atrial Rate : 000 BPM P-R Int : 000 ms QRS Dur : 064 ms QT Int : 394 ms P-R-T Axes : 000 005 053 degrees QTc Int : 474 ms Atrial fibrillation Low voltage QRS Septal infarct (cited on or before 28-SEP-2023) Cannot rule out Inferior infarct , age undetermined Abnormal ECG When compared with ECG of 22-NOV-2023 11:58, Nonspecific T wave abnormality, improved in Inferior leads Nonspecific T wave abnormality no longer evident in Anterolateral leads QT has shortened Referred By: Tashi Silva Electronically Signed By:KELLY KHAN MD
[2023-11-23] MEDS: hydrALAZINE HCl 25 MG TABLET PO ×2 (08:44→15:12)
[2023-11-23] MEDS: Aspirin Enteric Coated 81 MG TABLET.DR PO (08:44)
[2023-11-23] MEDS: polyethylene glycoL 3350 17 GM POWD.PACK PO (08:44)
[2023-11-23] MEDS: Famotidine 20 MG TABLET PO (08:45)
[2023-11-23] MEDS: Multivitamin TABLET 1 TAB PO (08:45)
[2023-11-23] MEDS: Metoprolol Tartrate 25 MG TABLET PO (08:45)
[2023-11-23] MEDS: Gabapentin 300 MG CAPSULE PO (08:45)
[2023-11-23] MEDS: amLODIPine Besylate 5 MG TABLET PO (08:45)
[2023-11-23] MEDS: Docusate Sodium 100 MG CAPSULE PO (08:45)
[2023-11-23 09:20] VITALS: BP 142/59; PULSE 70; RESP 13; TEMP 36.7; O2SAT 93
--- NOTE | 2023-11-23 10:33 | PC.NURSE ---
this RN resumed care of pt at 0700. pt alert and oriented to name only. pt pleasantly confused. when asking patient questions to see if she is oriented - pt refuses to respond as she states i'm a lady and it's rude that you're asking me these things. vss and up to date. pt remains on L via NC. slight sob/wob noted while converasting. purse lipped breathing displayed. pt positioned upright to promote patent airway. pt ripped out original IV. 20gIV placed in the left forearm - wrapped w/ gauze for safety precautions. pt incontinent of urine. pericare performed - new linen applied. purewick placed. medications administered per provider order. pt requested for PO medication to be administered w/ applesauce. d/t no applesauce in ED - medication was administered whole w/ pudding and sips of water instead. pt waiting for bed assignment at this time. plan of care ongoing. call peters placed within reach.
--- NOTE | 2023-11-23 11:40 | MHC.CM.PN ---
CM SPOKE TO PTS GRANDDAUGHTER/HCP, EMMETT LARSON [phone] SHE STATES PT WAS AT [facility] FOR STR, HOWEVER SHE HAS BEEN IN AND OUT OF THE HOSPITAL SO HAS NOT BEEN ABLE TO GET ANY REHAB SHE SAYS SHE IS ALSO CONCERNED THE PT MAY NEED TO STAY LONGER OR EVEN TRANSITION SHE HAS BEEN MORE CONFUSED EMMETT IS AWARE PT WILL RETURN TO [facility] TODAY AT 1500 HOURS HCP ON FILE PCP: ALLA PETERSEN IMM DELIVERED, COPY EMAILED TO EMMETT AT [email or web address] PT WILL DC BACK TO [facility] TODAY AT 1500 HOURS VIA [facility]
[2023-11-23 12:40] VITALS: BP 122/57; PULSE 72; RESP 18; O2SAT 96
--- NOTE | 2023-11-23 12:52 | PM.DS ---
DS: Providers Provider Date of Service: 11/23/23 Date of admission: 11/22/23 19:18 Primary care physician: Niels Israel MD DS: Diagnosis Discharge Diagnosis (1) Hypokalemia: Status: Acute (2) Abdominal pain: Status: Acute (3) UTI (urinary tract infection): Status: Acute DS: Summary Hospital Course Hospital Course: Admission note HPI Pt is an 88-year-old female with a PMH significant for?COPD chronically on 2-3L home O2, HTN, HLD, HFpEF, paroxysmal AFib not on anticoagulation, hx of GA around 5 years ago, right renal mass suspicious for malignancy, and hypothyroidism who presents to the ED from [facility] for evaluation of chest and abdominal pain. Patient is alert and oriented x4, but with some underlying confusion. Pt is rather vague and at times imprecise about symptoms, but reports experiencing chest and abdominal pain that began around 9-10 p.m. last night. Patient describes chest pain as constant, and feeling like a ?dull tractor-trailer? was sitting on her chest. Is much less precise about abdominal pain which she can only describe as as ?really hurting?. Some nausea but no vomiting. Reports she has been feeling weird , lost , and not like myself for past few months. Endorses anorexia, not feeling like eating or drinking, and with increased fatigue. Denies diarrhea or constipation. No polyuria or dysuria. In the ED pt had elevated HR of 98, and soft BP as low as 81/54. Labs were significant for sodium 134, potassium 2.3, chloride 84, carbon dioxide 35, creatinine 1.57 (around baseline), albumin 3.4, and initial troponin 25.9 with repeat 22.2. UA similar to past which showed urogenital contamination. Tested negative COVID, RSV, flu. 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 CT?of abdomen and pelvis negative for acute abdomen, but with numerous incidental findings all unchanged from previous. EKG demonstrated atrial fibrillation with prolonged QTc of 552. Pt was treated with potassium chloride 40 meq IV, IVF, ondansetron, and morphine. Pt will be admitted to the hospital for treatment and further evaluation of hypokalemia and elevated troponins. Hospital course The patient was admitted for significant acute hypokalemia of 2.3 likely a result of Lasix therapy treated with IV and PO potassium supplement with good response as it is corrected overnight to 4.2. At the same time she was noted to have abnormal urine. treated with IV Ceftriaxone as urine infection. Urine Cx growing GNR. Prev cultures grew pansensitive bacterias. To be treated with 5 days of Ceftin. Noted to have elevated Trop in ED. No chest pain. Trop Trended down on repeat. No EKG changes to suggest ACS. Evaluated by CANE P[facility]ER team for reported weakness and dysphagea. recommended regular diet and thin liquids. 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 Will need Follow-up outpatient for possible further workup Also noted Abdominal aortic aneurism as CT showed AAA increased from 2019, now measuring 3.5 x 3.6 cm. Recommendation is for imaging follow-up every 2 years Discharge plan Continue Ceftin for 5 more days Start Potassium supplement daily repeat BMP next week to decide on right potassium dose needed Follow with PCP as scheduled The patient made quicker than expected recovery and will be discharged to nursing facility to continue antibiotics therapy and potassium supplement. Time Attestation Discharge Coordination Time (in mins): 37 Quality: Safe Use of Opioids Does Pt have an Active Cancer Diagnosis on the Problem List?: No Quality: Stroke Does the patient have a stroke diagnosis?: No Physical Exam Vital Signs: Vital Signs: Last Vital Signs Temp 98.1 F 11/23/23 09:20 Pulse 72 11/23/23 12:40 Resp 18 11/23/23 12:40 BP 122/57 L 11/23/23 12:40 Pulse Ox 96 11/23/23 12:40 O2 Del Method Nasal Cannula 11/23/23 12:40 O2 Flow Rate 3 11/23/23 12:40 BMI result Body Mass Index 26.6 Const: Other: Constitutional : interactive, not in distress Cardiovascular : no JVP, no lower extremity edema Respiratory : bilateral chest movement, not in resp distress Gastrointestinal: soft, lax, Non tender Skin : Warm, Dry Neurological : Alert & oriented to self , No focal deficit DS: Data Data Completed and Pending Labs on day of discharge: Laboratory Results - last 24 hr 11/22/23 11/22/23 11/22/23 12:10 14:43 16:29 Sodium Potassium Chloride Carbon Dioxide Anion Gap BUN Creatinine Estim Creat Clear Calc Estimated GFR Random Glucose Calcium Troponin I High Sens 25.9 H 22.2 H Lipase 41 Urine Color Yellow Urine Appearance Turbid Urine pH 6.5 Ur Specific Sheridan 1.015 Urine Protein 100 (2+) H Urine Glucose (UA) Negative Urine Ketones Trace Urine Blood Small (1+) H Urine Nitrite Negative Ur Leukocyte Esterase Large (3+) H Urine RBC 0-2 Urine WBC >50 H Ur Squamous Epith Cells 6-10 Urine Bacteria 4+ Hyaline Casts 11-20 Influenza Type A (PCR) NEGATIVE Influenza Type B (PCR) NEGATIVE RSV RNA Qual (PCR) NEGATIVE SARS-CoV-2 RNA (RT-PCR) NEGATIVE 11/23/23 04:15 Sodium 133 L Potassium 4.3 D Chloride 92 L Carbon Dioxide 27 Anion Gap 18 BUN 11 Creatinine 1.28 Estim Creat Clear Calc 30.9 Estimated GFR 39 Random Glucose 100 Calcium 9.3 Troponin I High Sens Lipase Urine Color Urine Appearance Urine pH Ur Specific Sheridan Urine Protein Urine Glucose (UA) Urine Ketones Urine Blood Urine Nitrite Ur Leukocyte Esterase Urine RBC Urine WBC Ur Squamous Epith Cells Urine Bacteria Hyaline Casts Influenza Type A (PCR) Influenza Type B (PCR) RSV RNA Qual (PCR) SARS-CoV-2 RNA (RT-PCR) Preliminary micro results at discharge 11/22/23 Unknown Urine Culture - Preliminary Urine clean catch - Urine carlos top Gram negative jairon Imaging Chest x-ray: Radiologist's impression: ITS Impressions Abdomen/Pelvis CT 11/22/23 13:53 IMPRESSION: 1. Unchanged, No evidence of obstructive uropathy or renal calculi. 2. Unchanged large 9.0 cm right adnexal cystic lesion. 3. Unchanged infrarenal calcified fusiform abdominal aortic aneurysm measuring 3.5 cm in AP diameter, 3.4 cm in width (previously 3.4 cm). 4. Unchanged Large retrocardiac hiatus hernia. 5. Unchanged Small umbilical hernia containing mesenteric fat. 6. Unchanged Sigmoid diverticulosis without inflammatory changes. 7. Unchanged status post cholecystectomy and hysterectomy. 8. Unchanged marked L3 compression fracture producing almost vertebra planum deformity, severe L5-S1 degenerative lumbar disc disease, grade 1 L4-L5 spondylolisthesis without spondylolysis. 9. Unchanged marked T11 compression fracture. Fleischner guidelines were followed. Chest CT 11/22/23 13:53 IMPRESSION: 1. 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 2. Branching curvilinear fibrosis and subpleural cystic air spaces are seen along the medial and posterior border of right lower lobe. 3. Large hiatus hernia. 4. Marked compression fracture of T11 vertebral body. Fleischner guidelines were followed. Discharge Plan Discharge Anticipated Discharge Date/Time: 11/23/23 12:48 Patient Disposition: [facility] Discharge Diagnosis: Urine infection Hypokalemia Referrals: [facility] [place] [Outside] - 1 Week Niels Israel MD [Primary Care Provider] - 1 Week Discharge Medications: New cefuroxime axetil 500 mg tablet 500 mg PO BID Qty: 10 0RF potassium chloride 20 mEq/15 mL liquid 20 meq PO DAILY Qty: 1500 0RF Continued furosemide 20 mg Tablet 60 mg PO DAILY hydralazine 25 mg Tablet 25 mg PO TID Qty: 90 0RF Protocol: Hold for SBP< HOLD for SBP < : 90 aspirin 81 mg Capsule 81 mg PO DAILY ipratropium-albuterol 0.5 mg-3 mg(2.5 mg base)/3 mL solution for nebulization 3 ml inhalation Q4H PRN (Reason: Wheezing) docusate sodium [Col-Rite] 100 mg capsule 100 mg PO DAILY Qty: 1 0RF polyethylene glycol 3350 [Miralax] 17 gram/dose powder 17 g PO DAILY Qty: 119 0RF levothyroxine 75 mcg tablet 75 mcg PO MOWEFR@0600 famotidine 20 mg tablet 20 mg PO BID montelukast 10 mg tablet 10 mg PO BEDTIME multivitamin Tablet 1 tab PO DAILY amlodipine 5 mg tablet 5 mg PO BID acetaminophen 325 mg Tablet 650 mg PO Q8H PRN (Reason: Fever Or Pain) metoprolol tartrate 25 mg Tablet 25 mg PO BID Qty: 1 0RF Protocol: Hold for SBP/HR < HOLD for SBP < : 90 HOLD for HR < : 60 levothyroxine 50 mcg tablet 50 mcg PO SUTUTHSA@0600 ipratropium bromide 17 mcg/actuation HFA aerosol inhaler 2 puff inhalation QID PRN (Reason: Shortness Of Breath) gabapentin 300 mg capsule 300 mg PO BID magnesium oxide 400 mg (241.3 mg magnesium) tablet 400 mg PO BEDTIME Discharge Orders: Discharge Order (Routine); Ordered 11/23/23 Ordered By: Leslie Stoddard Diet: Advance to usual diet Activity on Discharge: As tolerated Stand Alone Forms: Patient Portal Discharge page Print Language: Hong Konger Other Ambulatory Orders: Basic Metabolic Panel (Routine) Timeframe: 1 Day Facility: [facility] - Location: Laboratory Ordered By: Leslie Stoddard Care Plan Goals: Read below Health Concerns: Read below Plan of Treatment: Read below Assessment: You were treated for low potassium and urine infection. Continue Ceftin for 5 more days Start Potassium supplement daily repeat BMP next week to decide on right potassium dose needed Follow with PCP as scheduled Discharge Date/Time: 11/23/23 16:55
[2023-11-23] MEDS: cefTRIAXone sodium 1 GM in 0.9 % Sodium Chloride 50 ML IV (13:05)
--- NOTE | 2023-11-23 13:10 | PC.NURSE ---
abx administered per provider order.
--- NOTE | 2023-11-23 13:21 | MHC.SL.SWA ---
Speech Pathologist Impression: Mild oral phase dysphagia Risk of Aspiration Due to: Reduced Cognition Dysphasia Diet Status: REGULAR/THIN Liquid Consistency and Strategies for Safe Swallow: Liquid Intake Recommendation: Thin Liquid Intake Strategies: Small Sips Solid Food Consistency: Dietary Recommendations: Regular Additional Modifications to Solid Foods: Patient seen by AIRCRAFT DESIGN ENGINEER for bedside dysphagia exam. Oral [facility] exam was unremarkable. Patient presented with mild oral phase dysphagia, with mildly prolonged period of mastication, but with good oral clearance and exhibiting tolerance of regular texture foods. Nursing staff at [facility] report patient was on a regular texture diet and fed herself. Patient is recommended direct supervision during meals for safety d/t confusion. Oral Medication Intake: Whole with Liquid Please contact the pharmacy regarding appropriate crushable or liquid drug formulations that are available whenever modified delivery is recommended. Compensatory Strategies and Precautions to be Taken for Safe Swallow: Sitting Upright (90 deg) Small Bites and Sips Alternate Liquids/Solids Rate of Ingestion Change Supervision While Eating and Drinking for Safe Swallow: Total Supervision (1:1) Recommendation for Speech: NA:Typical Evaluation Comment: Further ST intervention no longer warranted at this level of care. Please re-refer if needed. Frequency/Duration: Date Range for Service Req: Timeline to reassess: Event Decorator And Designer Clinican/Clinical Fellow: No Supervisory Statement: I have reviewed and agree with the student/clinical fellow's documentation: N/A Speech Language Pathologist: Judy Ordoñez M.A., CCC-AIRCRAFT DESIGN ENGINEER
--- NOTE | 2023-11-23 16:21 | PC.NURSE ---
report given to linda alfonso at this time.
--- NOTE | 2023-11-23 16:33 | PC.NURSE ---
two attempts made at contacting [facility] but unsuccessful at this time. will reattempt.
[2023-11-23 16:56] VITALS: BP 122/57; PULSE 72; RESP 18; TEMP 36.7; O2SAT 96
== END 2023-11-23 16:55 | disposition intermediate care facility (04) | DRG 690 ==
LOC: HO.ED 17:45 → HO.EDOVER 19:28 → HO.IMC 11-23 13:38 → HO.EDOVER 11-23 13:40
PROVIDERS: Physician Assistant Medical; Admitting Provider Student in an Organized Health Care Education/Training Program; Emergency Provider Emergency Medicine; PCP Family Medicine; Visit Provider Student in an Organized Health Care Education/Training Program
DX: N39.0 Urinary tract infection, site not specified (principal); I50.32 Chronic diastolic (congestive) heart failure; C56.1 Malignant neoplasm of right ovary; E87.6 Hypokalemia; I48.0 Paroxysmal atrial fibrillation; I11.0 Hypertensive heart disease with heart failure; J43.9 Emphysema, unspecified; R13.10 Dysphagia, unspecified; Z99.81 Dependence on supplemental oxygen; R94.31 Abnormal electrocardiogram [ECG] [EKG]; I71.40 Abdominal aortic aneurysm, without rupture, unspecified; E03.9 Hypothyroidism, unspecified; T50.1X5A Adverse effect of loop [high-ceiling] diuretics, initial encounter; Z20.822 Contact with and (suspected) exposure to COVID-19; Z79.82 Long term (current) use of aspirin; Z79.890 Hormone replacement therapy; Z79.899 Other long term (current) drug therapy
CPT/HCPCS: 0241U; 36415; 71250; 74176; 80048; 80053; 81001; 83690; 83735; 84484; 85025; 87086; 87186; 92610; 93005; 99285; J0696; J1650; J2270; J2405; J3480; J7120

== ENCOUNTER → 2023-11-22 11:54 | Outpatient (BNV) | payer MEDICARE, MEDICAID, SELFPAY | PROVIDERS: Admitting Provider Student in an Organized Health Care Education/Training Program; Emergency Provider Emergency Medicine; PCP Family Medicine; Visit Provider Internal Medicine Cardiovascular Disease | DX: I48.91 Unspecified atrial fibrillation (principal); R94.31 Abnormal electrocardiogram [ECG] [EKG] | CPT/HCPCS: 93010 ==

== ENCOUNTER 2023-11-22 19:18 | Outpatient (BNV) | payer MEDICARE, MEDICAID, SELFPAY | END 2023-11-23 08:00 | PROVIDERS: Admitting Provider Student in an Organized Health Care Education/Training Program; Emergency Provider Emergency Medicine; PCP Family Medicine; Visit Provider Internal Medicine Cardiovascular Disease | DX: I48.91 Unspecified atrial fibrillation (principal); R94.31 Abnormal electrocardiogram [ECG] [EKG] | CPT/HCPCS: 93010 ==

== ENCOUNTER → 2023-11-22 19:18 | Outpatient (BNV) | payer MEDICARE, MEDICAID, SELFPAY | PROVIDERS: Admitting Provider Student in an Organized Health Care Education/Training Program; Emergency Provider Emergency Medicine; PCP Family Medicine; Visit Provider Student in an Organized Health Care Education/Training Program | DX: E87.6 Hypokalemia (principal); R10.9 Unspecified abdominal pain; N39.0 Urinary tract infection, site not specified | CPT/HCPCS: 99223; 99239 ==

== ENCOUNTER 2023-12-02 20:22 | Emergency (ER) | payer MEDICARE, MEDICAID, SELFPAY ==
--- NOTE | ~2023-12-02 | XR_ITS ---
EXAMINATION: XR CHEST CLINICAL INFORMATION: Shortness of breath, cough, rule out pneumonia COMPARISON: 11/22/2023 TECHNIQUE: 2 views of the chest were obtained. FINDINGS: The lungs are hyperinflated, suspicious for underlying COPD. No focal consolidation is seen. No evidence of pneumothorax, significant pleural effusion, or overt pulmonary edema. Cardiac silhouette appears at the upper limits of normal in size. Multiple chronic appearing right rib deformities. XR/XR chest 2V IMPRESSION: Hyperinflated lungs suspicious for COPD. No focal consolidation identified.
--- NOTE | 2023-12-02 20:49 | ED_ITS ---
HPI - SOB/Dyspnea General Chief Complaint: Dyspnea Stated Complaint: sob & hypoxic for staff at snf.has resolved w/ ems Time Seen by Provider: 12/02/23 20:46 History of Present Illness ED Provider: Dr. Armando Park HPI Narrative: 88-year-old female with a PMH significant for COPD chronically on 2-3L home O2, HTN, HLD, HFpEF, paroxysmal AFib not on anticoagulation, hx of UT around 5 years ago, right renal mass suspicious for malignancy, and hypothyroidism who presents to the ED from [facility] for evaluation of shortness of breath and hypoxia. The patient is a poor informant and lacks insight as to why she is here. She has no complaints. Following information was obtained from EMS who gave report to nurse. Patient was sent in from her fpc for evaluation of shortness of breath which occurred earlier today. She was also found to be hypoxic. She normally wears 2 L of oxygen via nasal cannula and EMS had to put her on 3 L of O2 saturation in her O2 saturation is now 99%. Patient was recently admitted on 11/22/2023 until 11/23/2023 for hypokalemia requiring IV and oral replacement. She also presented with abdominal pain initially treated with ceftriaxone for possible UTI, urine grew Gram-negative rods. She was noted to have a pelvic cyst on CT scan measuring 9 x 9.5 cm in the right pelvis area including cystic neoplasm. CT scan also noted abdominal aortic aneurysm measuring 3.5 x 3.6 cm. She was discharged on potassium supplements and Ceftin for 5 days. Related Data Home Medications ?Medication ?Instructions ?Recorded ?Confirmed gabapentin 300 mg capsule 300 mg PO BID Pain 07/13/20 11/22/23 ipratropium bromide 17 2 puff inhalation QID PRN 07/13/20 11/22/23 mcg/actuation HFA aerosol inhaler Shortness Of Breath levothyroxine 50 mcg tablet 50 mcg PO SUTUTHSA@0600 07/13/20 11/22/23 magnesium oxide 400 mg (241.3 mg 400 mg PO BEDTIME 07/13/20 11/22/23 magnesium) tablet famotidine 20 mg tablet 20 mg PO BID 12/21/22 11/22/23 montelukast 10 mg tablet 10 mg PO BEDTIME 12/21/22 11/22/23 multivitamin 1 tab PO DAILY 12/21/22 11/22/23 amlodipine 5 mg tablet 5 mg PO BID 09/12/23 11/22/23 furosemide 20 mg tablet 60 mg PO DAILY 09/28/23 11/22/23 aspirin 81 mg capsule 81 mg PO DAILY 10/27/23 11/22/23 ipratropium 0.5 mg-albuterol 3 mg 3 ml inhalation Q4H PRN Wheezing 10/27/23 11/22/23 (2.5 mg base)/3 mL nebulization soln acetaminophen 325 mg tablet 650 mg PO Q8H PRN Fever Or Pain 11/06/23 11/22/23 levothyroxine 75 mcg tablet 75 mcg PO MOWEFR@0600 11/22/23 11/22/23 Previous Rx's ?Medication ?Instructions ?Recorded hydralazine 25 mg tablet 25 mg PO TID #90 tabs 10/05/23 docusate sodium 100 mg capsule 100 mg PO DAILY #1 cap 10/29/23 (Col-Rite) polyethylene glycol 3350 17 17 g PO DAILY #119 grams 10/29/23 gram/dose oral powder (Miralax) metoprolol tartrate 25 mg tablet 25 mg PO BID #1 tab 11/06/23 cefuroxime axetil 500 mg tablet 500 mg PO BID #10 tabs 11/23/23 potassium chloride 20 mEq/15 mL 20 meq (15 mL) PO DAILY #1,500 mL 11/23/23 oral liquid potassium chloride 20 mEq 20 meq PO BID #60 tabs 12/03/23 tablet,extended release(part/cryst) Allergies Allergy/AdvReac Type Severity Reaction Status Date / Time adhesive tape [Adhesive Tape] Allergy Unknown RASH Verified 12/02/23 21:11 codeine [Codeine] Allergy Unknown SWELLING Verified 12/02/23 21:11 Iodinated Contrast Media Allergy Unknown UNKNOWN Verified 12/02/23 21:11 [IV Dye, Iodine Containing] iodine [Iodine] Allergy Unknown UNKNOWN Verified 12/02/23 21:11 oxycodone [Percocet] Allergy Unknown unknown Verified 12/02/23 21:11 papaya [Papaya] Allergy Unknown HIVES Verified 12/02/23 21:11 pineapple [Pineapple] Allergy Unknown HIVES Verified 12/02/23 21:11 strawberry [[place]] Allergy Unknown HIVES Verified 12/02/23 21:11 Codeine Phosphate Allergy Unknown unknown Uncoded 12/02/23 21:11 Novocain Allergy Unknown unknown Uncoded 12/02/23 21:11 From Vicodin AdvReac Unknown NAUSEA & Uncoded 12/02/23 21:11 VOMITING Review of Systems 2 Review of Systems: Yes Other (Unobtainable secondary to memory deficit) [facility] Past Medical History [facility] Narrative: Social history: The patient is a resident of [facility]. Medical History Adnexal mass Abdominal aortic aneurysm CKD (chronic kidney disease) stage 3, GFR 30-59 ml/min Myocardial infarction Hypothyroidism Hyperlipidemia COPD (chronic obstructive pulmonary disease) HTN (hypertension) PAF (paroxysmal atrial fibrillation) Family History Family History Father History of heart disease Mother History of heart disease Social History Social History Household Members: None Housing: [facility]way Do you presently have visiting nurse or other home services: Yes Alcohol intake: never Comment: Sitter in room Patient Tobacco Use Status: Never used Tobacco Smoked in Last 30 Days: No Use of substances other than those prescribed or required for medical reasons: No Advance Directives: Yes Advance Directives on File: Yes Advance Directives Date on File: 10/16/23 service: No Current occupational status: retired Physical Exam 2 Vital Signs: Vital Signs: Last Vital Signs Temp 97.8 F 12/02/23 20:55 Pulse 102 H 12/02/23 20:55 Resp 20 12/02/23 20:55 BP 146/65 H 12/02/23 20:55 Pulse Ox 95 12/02/23 20:55 O2 Del Method Nasal Cannula 12/02/23 20:55 Oxygen Flow Rate 3 12/02/23 20:55 BMI result Body Mass Index 26.6 Exam: General: Awake, alert in no distress, oriented to person, was not oriented to month or year. Head: Normocephalic, atraumatic EENT: PERRL, Lids normal, sclera normal, conjunctiva normal, nose normal , ears normal, throat without erythema or exudates Neck: Supple, no adenopathy Lung: Wheezing and rales at the bases, breath sounds symmetric Chest: symmetric movement, nontender Heart: regular rate and rhythm, normal S1, S2 no murmurs or rubs Abdomen: soft, non-tender, nondistended, normal bowel sounds Back: no vertebral tenderness, no CVAT Extremities: no deformities, moves all extremities symmetrically Neuro: Awake, alert, normal speech, cranial nerves intact, moves all extremities symmetrically Psych: Pleasant, cooperative Medications Administered Discontinued Medications Generic Name Dose Route Start Last Admin Trade Name Rohith PRN Reason Stop Dose Admin Acetaminophen 975 mg 12/03/23 00:26 12/03/23 00:32 Acetaminophen 325 Mg Tablet PO 12/03/23 00:27 975 mg ONCE ONE Administration Potassium Chloride 40 meq 12/02/23 22:38 12/02/23 22:57 Potassium Chloride Packet 20 Meq Packet PO 12/02/23 22:39 40 meq ONCE ONE Administration Medical Decision Making Medical Decision Making MDM Narrative: 88-year-old female with a PMH significant for COPD chronically on 2-3L home O2, HTN, HLD, HFpEF, paroxysmal AFib not on anticoagulation, hx of UT around 5 years ago, right renal mass suspicious for malignancy, and hypothyroidism who presents to the ED from [facility] for evaluation of shortness of breath and hypoxia. Patient was on 2 L via nasal cannula chronically and had to be increased to 3 L with O2 saturation of 99%. Patient has no complaints. Lung exam did reveal wheezing and rales at the bases otherwise exam is unremarkable. Patient was hospitalized discharge 9 days prior for hyperkalemia and Gram- negative jairon urinary tract infection. Did grow Klebsiella aerogenes which was resistant to ampicillin, ceftriaxone, nitro phenytoin and Bactrim. Patient was treated with ceftriaxone and with Ceftin for 5 days after discharge. Differential diagnosis: ?Includes but is not limited to pneumonia, chronic lung disease exacerbation, bronchitis, urinary tract infection, electrolyte abnormalities, Following evaluation was ordered: CBC, CMP, troponin, lactic acid, EKG, chest x-ray two view, urinalysis. Course: 01:34 My independent interpretation patient's laboratory evaluation as follows: [place] [address] potassium was low 2.9. Chloride low 91. BUN 16 with an elevated creatinine of 1.47. Glucose elevated 127. Lactic acid was normal 7.3. Magnesium was normal 1.9. AST and alk-phos were elevated 08/02/2038. Troponin was elevated 34.0 repeat 3 hour troponin was 35 which which is not greater than 50% delta suggesting that she does not have myocardial injury or infarction as the cause of her dyspnea. BNP was only slightly elevated at 107. COVID-19, influenza and RSV were negative. Patient's two view chest x-ray did reveal increased interstitial markings but I do not see any acute evidence for pneumonia. The patient's O2 saturation on 2 L of oxygen via nasal cannula is 94% at this time I do not think that she has significant hypoxia pneumonia and she will be discharged back to her facility. Patient was complaining of severe left knee pain which Rosceo De Souza helps but we do not have this medication here. She was Tylenol 975 mg orally and Ativan 1 mg orally for anxiety. Patient does have a low potassium but she has had this in the past, her care facility will need to make sure she has on a potassium supplement Patient will be discharged back to her care facility Admission/Observation Consideration of admission/observation: Escalation of care including admission/observation considered Lab Data [facility] Lab Attestation statement: I reviewed the patient's lab results. 12/02/23 21:38 12/02/23 21:38 Labs: Lab Results 12/02/23 12/03/23 Range/Units 21:38 00:44 WBC 10.7 (4.8-10.8) X10*3/uL RBC 4.30 (4.20-5.50) X10*6/uL Hgb 13.5 (12.0-16.0) g/dl Hct 39.0 (37.0-47.0) % MCV 90.7 (80.0-98.0) fL MCH 31.4 (27.0-33.0) pg MCHC 34.6 (31.0-35.0) g/dl RDW 13.8 (11.0-16.0) % Plt Count 182 D (160-400) X10*3/uL MPV 10.3 (9.4-12.3) fL Immature Gran % (Auto) 0.4 (0.0-0.4) % Neut % (Auto) 77.4 H (45-73) % Lymph % (Auto) 14.2 L (20-40) % [place] % (Auto) 7.6 (2-11) % Eos % (Auto) 0.0 (0-4) % Baso % (Auto) 0.4 (0-2) % Lymph # (Auto) 1.5 (1.2-4.9) X10*3/uL [place] # (Auto) 0.8 (0.1-1.2) X10*3/uL Eos # (Auto) 0.0 (0.0-0.4) X10*3/uL Baso # (Auto) 0.0 (0.0-0.2) X10*3/uL Abs Immat Gran (auto) 0.04 H (0.00-0.03) X10*3/uL Absolute Neuts (auto) 8.3 (2.0-8.3) x10*3/uL Absolute Nucleated RBC 0.000 (0.0-0.012) X10*3/uL Nucleated RBC % (auto) 0.0 (0.0-0.2) /100WBC Sodium 136 (135-145) mmol/L Potassium 2.9 L* D (3.3-5.1) mmol/L Chloride 91 L (96-108) mmol/L Carbon Dioxide 29 (22-29) mmol/L Anion Gap 19 (12-20) BUN 16 (9-16) mg/dL Creatinine 1.47 H (0.5-1.4) mg/dL Estim Creat Clear Calc 22.1 Estimated GFR 34 Random Glucose 127 H (60-115) mg/dL Lactic Acid 1.7 (0.5-2.0) mmol/L Calcium 9.0 (8.4-10.2) mg/dL Magnesium 1.9 (1.6-2.6) mg/dL Total Bilirubin 0.5 (0.0-1.0) mg/dL AST 39 H (5-31) U/L ALT 14 (0-31) U/L Alkaline Phosphatase 124 H (39-117) U/L Troponin I High Sens 34.0 H D 35.3 H (<3.5-17.0) ng/L B-Natriuretic Peptide 107 H (<100) pg/mL Total Protein 7.1 (6.5-8.0) g/dL Albumin 3.4 L (3.5-5.0) g/dL Lipase 26 (8-78) U/L Influenza Type A (PCR) NEGATIVE (Negative) Influenza Type B (PCR) NEGATIVE (Negative) RSV RNA Qual (PCR) NEGATIVE (Negative) SARS-CoV-2 RNA (RT-PCR) NEGATIVE (Negative) Independent Interpretation I performed an independent interpretation of an: EKG Interpretation: My interpretation of the patient's 12 EKG done at 21:14 hours is as follows: Atrial fibrillation with a ventricular rate of 102, normal QRS duration and QTC intervals, Q-wave in lead 3 and AVF with poor R-wave progression, no ST segment elevation, no ST segment depression, nonspecific T-wave abnormalities. Compared to EKG dated 11/23/2023 there has no acute change. Radiology Impression Discussion of test interpretation with radiology: I have reviewed the radiologist's reading. Radiologist Impression: XR chest 2V IMPRESSION: Hyperinflated lungs suspicious for COPD. No focal consolidation identified. Dictated By: Antonio Coelho MD External Record Review External record reviewed: Inpatient record and Outpatient record Chronic Conditions Patient?s care impacted by: Other (COPD) Discharge Plan Discharge Clinical Impression: Shortness of breath, COPD exacerbation, Acute hypokalemia Patient Disposition: Xfer SNF Transfer Details: [facility] Additional Instructions: Your chest x-ray was unremarkable. Your BNP was only slightly elevated 107 Your troponin were elevated at 30 and 34 but there was not a significant change between the 1st 1 and 3 are 1 suggesting that you did not have any cardiac injury or heart attack as the cause of your symptoms Your chest x-ray did not reveal any pneumonia or fluid in your lungs Your shortness of breath was most likely caused by your COPD You are not hypoxic here in your oxygen level on 2 L of oxygen via nasal cannula. Your potassium level was low at 2.9 I am prescribing a potassiuml supplement called K-Dur 20 mEq twice a day, if you are already on potassium self but then you do not need to take this medication Follow-up with your doctor in 2 days. Please return to the emergency department if your symptoms get worse or if you develop any symptoms that are concerning to you. Prescriptions: New potassium chloride 20 mEq tablet,ER particles/crystals 20 meq PO BID Qty: 60 0RF No Action furosemide 20 mg Tablet 60 mg PO DAILY hydralazine 25 mg Tablet 25 mg PO TID Qty: 90 0RF Protocol: Hold for SBP< HOLD for SBP < : 90 aspirin 81 mg Capsule 81 mg PO DAILY ipratropium-albuterol 0.5 mg-3 mg(2.5 mg base)/3 mL solution for nebulization 3 ml inhalation Q4H PRN (Reason: Wheezing) docusate sodium [Col-Rite] 100 mg capsule 100 mg PO DAILY Qty: 1 0RF polyethylene glycol 3350 [Miralax] 17 gram/dose powder 17 g PO DAILY Qty: 119 0RF levothyroxine 75 mcg tablet 75 mcg PO MOWEFR@0600 cefuroxime axetil 500 mg tablet 500 mg PO BID Qty: 10 0RF potassium chloride 20 mEq/15 mL liquid 20 meq PO DAILY Qty: 1500 0RF famotidine 20 mg tablet 20 mg PO BID montelukast 10 mg tablet 10 mg PO BEDTIME multivitamin Tablet 1 tab PO DAILY amlodipine 5 mg tablet 5 mg PO BID acetaminophen 325 mg Tablet 650 mg PO Q8H PRN (Reason: Fever Or Pain) metoprolol tartrate 25 mg Tablet 25 mg PO BID Qty: 1 0RF Protocol: Hold for SBP/HR < HOLD for SBP < : 90 HOLD for HR < : 60 levothyroxine 50 mcg tablet 50 mcg PO SUTUTHSA@0600 ipratropium bromide 17 mcg/actuation HFA aerosol inhaler 2 puff inhalation QID PRN (Reason: Shortness Of Breath) gabapentin 300 mg capsule 300 mg PO BID magnesium oxide 400 mg (241.3 mg magnesium) tablet 400 mg PO BEDTIME Print Language: [place] Leonean
[2023-12-02 20:55] VITALS: BP 138/90; BP 146/65; PULSE 102; PULSE 56; RESP 20; TEMP 36.6; O2SAT 95; O2SAT 99; BMI 26.6
--- NOTE | 2023-12-02 21:02 | ECG_ITS ---
Test Reason : CHEST PAIN Blood Pressure : / mmHG Vent. Rate : 102 BPM Atrial Rate : 000 BPM P-R Int : 000 ms QRS Dur : 062 ms QT Int : 346 ms P-R-T Axes : 000 -04 078 degrees QTc Int : 450 ms Atrial fibrillation with rapid ventricular response Anteroseptal infarct (cited on or before 28-SEP-2023) Abnormal ECG When compared with ECG of 23-NOV-2023 08:04, Questionable change in initial forces of Anterior leads Nonspecific T wave abnormality now evident in Lateral leads Referred By: Armando Park Electronically Signed By:Minh Womack
[2023-12-02 21:44] LABS: MANUAL DIFF FLAG NO
[2023-12-02 21:47] LABS: Basophils Percent Auto 0.4 % (0-2); Hemoglobin 13.5 g/dl (12.0-16.0); Imm Gran Abs Auto 0.04 X10*3/uL (0.00-0.03); Imm Gran Pct Auto 0.4 % (0.0-0.4); Lymphocytes Absolute Auto 1.5 X10*3/uL (1.2-4.9); Lymphocytes Percent Auto 14.2 % (20-40); Mean Corpuscular HGB Conc 34.6 g/dl (31.0-35.0); Mean Corpuscular Hemoglobin 31.4 pg (27.0-33.0); Mean Corpuscular Volume 90.7 fL (80.0-98.0); Mean Platelet Volume 10.3 fL (9.4-12.3); Monocytes Absolute Auto 0.8 X10*3/uL (0.1-1.2); Monocytes Percent Auto 7.6 % (2-11); Neutrophils Absolute Auto 8.3 x10*3/uL (2.0-8.3); Neutrophils Percent Auto 77.4 % (45-73); Platelet Count 182 X10*3/uL (160-400); Red Cell Distribution Width 13.8 % (11.0-16.0); White Blood Count 10.7 X10*3/uL (4.8-10.8)
[2023-12-02 21:59] LABS: Lactic Acid 1.7 mmol/L (0.5-2.0)
[2023-12-02 22:06] LABS: B Type Natriuretic Peptide 107 pg/mL (<100)
[2023-12-02 22:07] LABS: Alanine Aminotransferase 14 U/L (0-31); Albumin Level 3.4 g/dL (3.5-5.0); Alkaline Phosphatase 124 U/L (39-117); Anion Gap 19 (12-20); Aspartate Amino Transferase 39 U/L (5-31); Bilirubin Total 0.5 mg/dL (0.0-1.0); Blood Urea Nitrogen 16 mg/dL (9-16); Carbon Dioxide 29 mmol/L (22-29); Chloride 91 mmol/L (96-108); Creatinine Clr Calc Pharmacy 22.1; Estimated Glomerular Filt Rate 34; Glucose Random 127 mg/dL (60-115); Lipase 26 U/L (8-78); Magnesium 1.9 mg/dL (1.6-2.6); Potassium 2.9 mmol/L (3.3-5.1); Sodium 136 mmol/L (135-145); Total Protein 7.1 g/dL (6.5-8.0)
[2023-12-02 22:23] LABS: Influenza A PCR NEGATIVE (Negative); Influenza B PCR NEGATIVE (Negative); Resp Syncy Virus RNA Qual PCR NEGATIVE (Negative); SARS COV2 PCR INHOUSE NEGATIVE (Negative)
[2023-12-02] MEDS: Potassium Chloride Packet 20 MEQ PACKET 40 MEQ PO (22:57)
--- OUTSIDE RECORDS SUMMARY | 2023-12-03 00:01 | XMS_ITS | Patient Health Record ---
Author Organization [facility] Address [address] [place] [place] [address] Care Team Providers Care Manager Filter Name Role Phone Jayjay Sood MD Primary Care Provider Jorge Luis Claire Unavailable [phone] ALLERGIES Allergen (clinical drug ingredient) Drug/Non Drug [...] Risk SNOMED Code Notes Problem Atherosclerosis of [place] artery of both lower extremities, with unspecified presence of clinical manifestation (I70.203) Active confirmed Atherosclerosis of [place] arteries of the extremities ([id number]) PLAN OF TREATMENT Pending Test Test Name Order Date [id number] NAIL, 6 OR MORE 08/28/2020 [id number] SKIN LESIONS, 2 TO 4 08/28/19 21 Insurance Providers Payer Name Payer Address Payer Phone Subscriber Number Group Number Insured Name Patient Relationship to Insured Coverage Start Date Coverage End Date Medicare [employer] [address] [place] [address] [id number] Vane Lim Self - patient is the insured MEDICAL (GENERAL) HISTORY Medical History History ICD Code Arthritis asthma Back,Hip,and Knee pain Cancer Headaches/Migraines High blood pressure Lung disease Numbness Poor circulation Measles Mumps Chicken pox Surgical History Surgery Date(Month/Year) tonsillectomy and adenoidectomy appendectomy hysterectomy
--- NOTE | 2023-12-03 00:19 | PC.NURSE ---
pt resting comfortably in bed, 2L nc 94%. back to baseline
[2023-12-03] MEDS: Acetaminophen 325 MG TABLET 975 MG PO (00:32)
--- NOTE | 2023-12-03 00:56 | PC.NURSE ---
pt medicated per SEP for R knee pain, pt given a hot pack per request for pain
[2023-12-03 01:10] LABS: Troponin-I High Sensitivity 35.3 ng/L (<3.5-17.0)
[2023-12-03] MEDS: LORazepam 1 MG TABLET PO (01:54)
--- NOTE | 2023-12-03 02:25 | PC.NURSE ---
attemptedt to call nurse to nurse report to facility, RN on break, requested them the call this rn back
[2023-12-03 02:28] VITALS: BP 126/53; PULSE 94; RESP 20; O2SAT 94
--- NOTE | 2023-12-03 02:34 | PC.NURSE ---
report given to [facility] RN
[2023-12-03 02:35] VITALS: BP 126/53; PULSE 94; RESP 20; TEMP 36.7; O2SAT 94
== END 2023-12-03 02:36 | disposition skilled nursing facility (03) ==
PROVIDERS: Emergency Provider Emergency Medicine Emergency Medical Services
DX: J44.1 Chronic obstructive pulmonary disease with (acute) exacerbation (principal); E87.6 Hypokalemia; R09.02 Hypoxemia; R06.02 Shortness of breath; I12.9 Hypertensive chronic kidney disease with stage 1 through stage 4 chronic kidney disease, or unspecified chronic kidney disease; N18.30 Chronic kidney disease, stage 3 unspecified; E78.5 Hyperlipidemia, unspecified; I48.0 Paroxysmal atrial fibrillation; Z99.81 Dependence on supplemental oxygen; Z79.82 Long term (current) use of aspirin; Z79.899 Other long term (current) drug therapy; Z03.818 Encounter for observation for suspected exposure to other biological agents ruled out
CPT/HCPCS: 0241U; 36415; 71046; 80053; 83605; 83690; 83735; 83880; 84484; 85025; 93005; 99284; 99285

== ENCOUNTER → 2023-12-02 21:02 | Outpatient (BNV) | payer MEDICARE, MEDICAID, SELFPAY | PROVIDERS: Emergency Provider Emergency Medicine Emergency Medical Services; Visit Provider Internal Medicine Cardiovascular Disease | DX: R07.9 Chest pain, unspecified (principal) | CPT/HCPCS: 93010 ==

== ENCOUNTER 2023-12-07 06:19 | Inpatient (IN) | payer MEDICARE, MEDICAID, SELFPAY ==
[2023-12-07] VITALS (11 sets, daily range): BP systolic 149–204; BP diastolic 61–92; PULSE 73–123; RESP 14–18; TEMP 36.6–36.8; O2SAT 90–98; BMI 24.5
--- NOTE | 2023-12-07 | ECG_ITS ---
Test Reason : CHEST PAIN Blood Pressure : / mmHG Vent. Rate : 112 BPM Atrial Rate : 000 BPM P-R Int : 000 ms QRS Dur : 058 ms QT Int : 318 ms P-R-T Axes : 000 049 087 degrees QTc Int : 434 ms Atrial fibrillation with rapid ventricular response Low voltage QRS Septal infarct (cited on or before 28-SEP-2023) Abnormal ECG When compared with ECG of 02-DEC-2023 21:14, No significant changes seen Referred By: Generic ED Physician Electronically Signed By:BRISA LUU
--- NOTE | ~2023-12-07 | XR_ITS ---
EXAMINATION: XR CHEST CLINICAL INFORMATION: Cough. COMPARISON: Chest radiograph 12/02/2023 TECHNIQUE: Frontal view of the chest was obtained. FINDINGS: Multiple external artifacts overlie the thorax. Density artery calcific atherosclerosis. Normal heart size. No effusions or pneumothoraces. Multiple chronic right posterolateral posttraumatic rib deformities. Marked attenuation of the upper lung zone pulmonary parenchyma. Partially visualized moderate sized hiatal hernia. XR/XR chest 1V IMPRESSION: *No acute cardiopulmonary abnormalities identified. *Marked centrilobular pulmonary emphysema. *Moderate sized hiatal hernia. *Multiple posterolateral right rib chronic posttraumatic deformities.
--- NOTE | ~2023-12-07 | CT_ITS ---
EXAMINATION: CT HEAD WITHOUT CONTRAST CLINICAL INFORMATION: Encephalopathy COMPARISON: CT head September 12, 2023 TECHNIQUE: Contiguous axial imaging was performed from the skull base to vertex without intravenous administration of contrast. Coronal and sagittal reformatted images are performed at the CT scanner. [This CT examination was performed using dose optimization techniques as appropriate, variously including the following: *Automated exposure control *Adjustment of mA and/or kV according to patient size (this includes techniques or standardized protocols for targeted exams where dose is matched to indication/reason for exam; i.e. extremities or head) *Use of iterative reconstruction technique] DLP: 637 mGy-cm. FINDINGS: There is no evidence of acute intracranial hemorrhage or territorial infarction. No abnormal mass-effect or midline shift is seen. Hansen to white matter differentiation is well preserved. No extra-axial fluid collections are identified. There is generalized global volume loss. There is moderate prominence of the ventricles and the sulci . There is moderate hypodensity of the periventricular white matter due to chronic small vessel ischemic disease. There are vascular calcifications of the internal carotid arteries bilaterally. There is no osseous abnormality. The mastoid air cells and visualized portions of the paranasal sinuses are well-aerated. CT/CT head/brain wo IV con IMPRESSION: No acute intracranial pathology.
--- NOTE | 2023-12-07 06:57 | ED.CHESTPAIN ---
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 She is a poor historian. She states its been years since her symptoms started. She denies any current chest pain. She has a productive cough of white phlegm but cannot say when it started. She denies any fevers, SOB or difficulty breathing. Per EMS she was refusing to wear her oxygen so EMS was called. On arrival to the ER patient is hypertensive to 204/92, SPO2 94% on 2L NC. HR 110s in rapid afib. MD complaint: chest pain Pertinent past history: other (COPD) Onset (ago): hour(s) Timing of current episode: constant Prior episodes: No Onset: during rest Pain radiation: none Severity: moderate Relieving factors: nothing Exacerbating factors: nothing Treatment prior to arrival: none Risk Factors Coronary artery disease risk factors: hypertension Thoracic aortic dissection risk factors: none Related Data Home Medications ?Medication ?Instructions ?Recorded ?Confirmed gabapentin 300 mg capsule 300 mg PO BID Pain 07/13/20 11/22/23 ipratropium bromide 17 2 puff inhalation QID PRN 07/13/20 11/22/23 mcg/actuation HFA aerosol inhaler Shortness Of Breath levothyroxine 50 mcg tablet 50 mcg PO SUTUTHSA@0600 07/13/20 11/22/23 magnesium oxide 400 mg (241.3 mg 400 mg PO BEDTIME 07/13/20 11/22/23 magnesium) tablet famotidine 20 mg tablet 20 mg PO BID 12/21/22 11/22/23 montelukast 10 mg tablet 10 mg PO BEDTIME 12/21/22 11/22/23 multivitamin 1 tab PO DAILY 12/21/22 11/22/23 amlodipine 5 mg tablet 5 mg PO BID 09/12/23 11/22/23 furosemide 20 mg tablet 60 mg PO DAILY 09/28/23 11/22/23 aspirin 81 mg capsule 81 mg PO DAILY 10/27/23 11/22/23 ipratropium 0.5 mg-albuterol 3 mg 3 ml inhalation Q4H PRN Wheezing 10/27/23 11/22/23 (2.5 mg base)/3 mL nebulization soln acetaminophen 325 mg tablet 650 mg PO Q8H PRN Fever Or Pain 11/06/23 11/22/23 levothyroxine 75 mcg tablet 75 mcg PO MOWEFR@0600 11/22/23 11/22/23 Previous Rx's ?Medication ?Instructions ?Recorded hydralazine 25 mg tablet 25 mg PO TID #90 tabs 10/05/23 docusate sodium 100 mg capsule 100 mg PO DAILY #1 cap 10/29/23 (Col-Rite) polyethylene glycol 3350 17 17 g PO DAILY #119 grams 10/29/23 gram/dose oral powder (Miralax) metoprolol tartrate 25 mg tablet 25 mg PO BID #1 tab 11/06/23 cefuroxime axetil 500 mg tablet 500 mg PO BID #10 tabs 11/23/23 potassium chloride 20 mEq/15 mL 20 meq (15 mL) PO DAILY #1,500 mL 11/23/23 oral liquid potassium chloride 20 mEq 20 meq PO BID #60 tabs 12/03/23 tablet,extended release(part/cryst) Allergies Allergy/AdvReac Type Severity Reaction Status Date / Time adhesive tape [Adhesive Tape] Allergy Unknown RASH Verified 12/02/23 21:11 codeine [Codeine] Allergy Unknown SWELLING Verified 12/07/23 06:40 Iodinated Contrast Media Allergy Unknown UNKNOWN Verified 12/07/23 06:40 [IV Dye, Iodine Containing] iodine [Iodine] Allergy Unknown UNKNOWN Verified 12/07/23 06:40 oxycodone [Percocet] Allergy Unknown unknown Verified 12/07/23 06:40 papaya [Papaya] Allergy Unknown HIVES Verified 12/07/23 06:40 pineapple [Pineapple] Allergy Unknown HIVES Verified 12/07/23 06:40 strawberry [[place]] Allergy Unknown HIVES Verified 12/07/23 06:40 Codeine Phosphate Allergy Unknown unknown Uncoded 12/07/23 06:40 Novocain Allergy Unknown unknown Uncoded 12/07/23 06:40 From Vicodin AdvReac Unknown NAUSEA & Uncoded 12/07/23 06:40 VOMITING Review of Systems Review of Systems: Yes all other systems are reviewed and are negative [facility] Past Medical History Medical History Adnexal mass Abdominal aortic aneurysm CKD (chronic kidney disease) stage 3, GFR 30-59 ml/min Myocardial infarction Hypothyroidism Hyperlipidemia COPD (chronic obstructive pulmonary disease) HTN (hypertension) PAF (paroxysmal atrial fibrillation) Family History Family History Father History of heart disease Mother History of heart disease Social History Social History Household Members: None Housing: [facility] Do you presently have visiting nurse or other home services: Yes Alcohol intake: never Comment: Sitter in room Patient Tobacco Use Status: Never used Tobacco Advance Directives: Yes Advance Directives on File: Yes Advance Directives Date on File: 10/16/23 Do you have a plan to hurt others: No Plan service: No Current occupational status: retired Physical Exam Vital Signs: Vital Signs: Last Vital Signs Temp 98.1 F 12/07/23 12:00 Pulse 96 12/07/23 12:00 Resp 15 12/07/23 12:00 BP 168/76 H 12/07/23 12:00 Pulse Ox 95 12/07/23 12:00 O2 Del Method Nasal Cannula 12/07/23 12:00 O2 Flow Rate 2 12/07/23 12:00 Oxygen Flow Rate 2 12/07/23 06:35 BMI result Body Mass Index 24.5 Appearance: Alert elderly female. Oriented X3. No acute distress. Head: normocephalic, atraumatic. Eyes: Pupils equal, round and reactive to light. ENT: Pharynx normal. No tonsillar swelling or exudate. Neck: Normal inspection. Neck supple. CVS: Irregularly irregular, heart rates 110. Pulses normal. Congested cough Respiratory: No respiratory distress. Breath sounds normal. Abdomen: Soft w/ epigastric tenderness. +BS x4 Skin: Skin warm and dry. Normal skin color. Normal skin turgor. No rashes. Extremities: No lower extremity edema. No joint swelling. Neuro/psych: Oriented X 3. No motor deficit. No sensory deficit. CN II-XII intact. Normal speech and cognition. Intermittent agitation. Medications Administered Generic Name Dose Route Start Last Admin Trade Name Freq PRN Reason Stop Dose Admin Sodium Chloride 1,000 mls @ 999 mls/hr 12/07/23 11:30 12/07/23 11:34 Ns IVCONT 12/07/23 12:30 999 mls/hr .Q1H1M TOBI Administration Discontinued Medications Generic Name Dose Route Start Last Admin Trade Name Freq PRN Reason Stop Dose Admin Amlodipine Besylate 5 mg 12/07/23 07:14 12/07/23 07:21 Amlodipine Besylate 5 Mg Tablet PO 12/07/23 07:15 5 mg ONCE ONE Administration Protocol Hydralazine HCl 25 mg 12/07/23 07:14 12/07/23 07:21 Hydralazine Hcl 25 Mg Tablet PO 12/07/23 07:15 25 mg ONCE ONE Administration Protocol Metoprolol Tartrate 5 mg 12/07/23 08:19 12/07/23 08:37 Metoprolol Tartrate 5 Mg/5 Ml Vial IVPUSH 12/07/23 08:20 5 mg ONCE ONE Administration Protocol Medical Decision Making Medical Decision Making MDM Narrative: 88-year-old female with a history of paroxysmal AFib, HTN, hypothyroidism, lymphedema, COPD on O2, UTI, hiatial hernia, thoracic and lumbar compression fractures, diverticulosis, 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 Patient found to be hypertensive to 200 systolic with heart rates in the 110, rapid afib. Patient given 5 of IV Lopressor along with her oral antihypertensives with improvement in her blood pressure and heart rate. She has no wheezing on examination so IV steroids were held off. She did have a productive cough and SpO2 88-90%. This is acceptable given her COPD history. VBG not showing any evidence of respiratory acidosis. She is breathing comfortably but reports pain in her chest when she coughs and is hugging a pillow. Phlegm is yellow in color. Chest x-ray reviewed, no focal infiltrate. No leukocytosis or fever. Low clinical suspicion for pneumonia. She does have a slightly worsening RONAK on lab workup. Troponin is 20 on initial check, repeat was 19. Low suspicion for cardiac injury or ischemia. On re-evaluation patient had recurrent rapid AFib with heart rates to the 1 teens. Additional 5 mg of IV Lopressor was ordered and patient to be admitted for further treatment. Will start doxycycline for COPD exacerbation given her increase in phlegm production. Differential Diagnosis Differential Diagnoses: The differential diagnosis associated with the presentation includes Acute COPD exacerbation, ACS, acute CHF exacerbation, bronchitis, viral syndrome, pneumonia Admission/Observation Consideration of admission/observation: Escalation of care including admission/observation considered Consult Healthcare Provider Management of the patient was discussed with: Hospitalist Yannick Queen PA-C Lab Data MDM Lab Attestation statement: I reviewed the patient's lab results. No leukocytosis, slightly worsening RONAK, trop flat 12/07/23 08:12 12/07/23 08:12 Labs: Lab Results 12/07/23 12/07/23 12/07/23 Range/Units 08:12 08:16 11:42 WBC 9.5 (4.8-10.8) X10*3/uL RBC 4.16 L (4.20-5.50) X10*6/uL Hgb 13.0 (12.0-16.0) g/dl Hct 37.6 (37.0-47.0) % MCV 90.4 (80.0-98.0) fL MCH 31.3 (27.0-33.0) pg MCHC 34.6 (31.0-35.0) g/dl RDW 13.9 (11.0-16.0) % Plt Count 193 (160-400) X10*3/uL MPV 10.7 (9.4-12.3) fL Immature Gran % (Auto) 0.7 H (0.0-0.4) % Neut % (Auto) 77.1 H (45-73) % Lymph % (Auto) 13.6 L (20-40) % [place] % (Auto) 7.2 (2-11) % Eos % (Auto) 0.8 (0-4) % Baso % (Auto) 0.6 (0-2) % Lymph # (Auto) 1.3 (1.2-4.9) X10*3/uL [place] # (Auto) 0.7 (0.1-1.2) X10*3/uL Eos # (Auto) 0.1 (0.0-0.4) X10*3/uL Baso # (Auto) 0.1 (0.0-0.2) X10*3/uL Abs Immat Gran (auto) 0.07 H (0.00-0.03) X10*3/uL Absolute Neuts (auto) 7.3 (2.0-8.3) x10*3/uL Absolute Nucleated RBC 0.000 (0.0-0.012) X10*3/uL Nucleated RBC % (auto) 0.0 (0.0-0.2) /100WBC VBG pH 7.49 H (7.32-7.43) VBG pCO2 38 mmHg VBG pO2 69 mmHg VBG HCO3 29 H (22-26) mmol/L VBG O2 Saturation 95.0 % VBG Base Excess 6.3 mmol/L Sodium 134 L (135-145) mmol/L Potassium 4.3 D (3.3-5.1) mmol/L Chloride 94 L (96-108) mmol/L Carbon Dioxide 26 (22-29) mmol/L Anion Gap 18 (12-20) BUN 14 (9-16) mg/dL Creatinine 1.79 H (0.5-1.4) mg/dL Estim Creat Clear Calc 19.0 Estimated GFR 27 Random Glucose 109 (60-115) mg/dL Calcium 9.1 (8.4-10.2) mg/dL Magnesium 2.0 (1.6-2.6) mg/dL Total Bilirubin 0.7 (0.0-1.0) mg/dL Direct Bilirubin 0.3 (0.0-0.5) mg/dL AST 32 H (5-31) U/L ALT 13 (0-31) U/L Alkaline Phosphatase 123 H (39-117) U/L Troponin I High Sens 20.9 H 19.5 H (<3.5-17.0) ng/L B-Natriuretic Peptide 66 (<100) pg/mL Total Protein 7.0 (6.5-8.0) g/dL Albumin 3.2 L (3.5-5.0) g/dL Influenza Type A (PCR) NEGATIVE (Negative) Influenza Type B (PCR) NEGATIVE (Negative) RSV RNA Qual (PCR) NEGATIVE (Negative) SARS-CoV-2 RNA (RT-PCR) NEGATIVE (Negative) ABG Data ABG Results: Attestation ABG: I personally reviewed and interpreted this ABG as follows: Interpretation: Respiratory and metabolic alkalosis Independent Interpretation I performed an independent interpretation of an: EKG and Plain X-Ray Interpretation: EKG with atrial fibrillation with rapid ventricular response, ventricular 112 beats per minute, artifact present, low-voltage QRS, no ST segment elevations or depressions Radiology Impression Discussion of test interpretation with radiology: I have reviewed the radiologist's reading. Independent Historian Clinical information obtained from an independent historian. History obtained from or confirmed by: EMS External Record Review External record reviewed: Outpatient record, Prior outpatient labs and Prior outpatient radiology Prescription Management I considered prescription management with: Pain Medication and Antibiotic Chronic Conditions Patient?s care impacted by: Hypertension and Other (AFIB) Critical Care Time Critical Care Time Critical Care Time: Yes Total Critical Care Time: 48 Attestation: I have personally provided critical care time exclusive of time spent on separately billable procedures. Time includes review of lab data, radiology results, re-evaluation of hemodynamics after administration of IV Lopressor, and monitoring for potential decompensation. Intervention performed as documented. Discharge Plan Discharge Clinical Impression: Bronchitis, Atrial fibrillation with RVR, RONAK (acute kidney injury), Hypertensive urgency Patient Disposition: Admitted As Inpatient Print Language: Pashto
[2023-12-07] MEDS: amLODIPine Besylate 5 MG TABLET PO (07:21)
[2023-12-07] MEDS: hydrALAZINE HCl 25 MG TABLET PO (07:21)
--- OUTSIDE RECORDS SUMMARY | 2023-12-07 07:26 | XMS_ITS | Patient Health Record ---
Author Organization [facility] [place] Address [address] [place] [address] Care Team Providers Care Apprentice Stylist Name Role Phone Jayjay Sood MD Primary Care Provider Jorge Luis Claire Unavailable [phone] ALLERGIES Allergen (clinical drug ingredient) Drug/Non Drug [...] Risk SNOMED Code Notes Problem Atherosclerosis of [place] artery of both lower extremities, with unspecified presence of clinical manifestation (I70.203) Active confirmed Atherosclerosis of [place] arteries of the extremities ([id number]) PLAN OF TREATMENT Pending Test Test Name Order Date [id number] NAIL, 6 OR MORE 08/28/2020 [id number] SKIN LESIONS, 2 TO 4 08/28/19 21 Insurance Providers Payer Name Payer Address Payer Phone Subscriber Number Group Number Insured Name Patient Relationship to Insured Coverage Start Date Coverage End Date Medicare [employer] [address] [facility] [place] [address] [id number] Vane Lim Self - patient is the insured MEDICAL (GENERAL) HISTORY Medical History History ICD Code Arthritis asthma Back,Hip,and Knee pain Cancer Headaches/Migraines High blood pressure Lung disease Numbness Poor circulation Measles Mumps Chicken pox Surgical History Surgery Date(Month/Year) tonsillectomy and adenoidectomy appendectomy hysterectomy
[2023-12-07 08:18] LABS: MANUAL DIFF FLAG NO
[2023-12-07 08:20] LABS: Basophils Absolute Auto 0.1 X10*3/uL (0.0-0.2); Basophils Percent Auto 0.6 % (0-2); Eosinophils Absolute Auto 0.1 X10*3/uL (0.0-0.4); Eosinophils Percent Auto 0.8 % (0-4); Hematocrit 37.6 % (37.0-47.0); Imm Gran Abs Auto 0.07 X10*3/uL (0.00-0.03); Imm Gran Pct Auto 0.7 % (0.0-0.4); Lymphocytes Absolute Auto 1.3 X10*3/uL (1.2-4.9); Lymphocytes Percent Auto 13.6 % (20-40); Mean Corpuscular HGB Conc 34.6 g/dl (31.0-35.0); Mean Corpuscular Hemoglobin 31.3 pg (27.0-33.0); Mean Corpuscular Volume 90.4 fL (80.0-98.0); Mean Platelet Volume 10.7 fL (9.4-12.3); Monocytes Absolute Auto 0.7 X10*3/uL (0.1-1.2); Monocytes Percent Auto 7.2 % (2-11); Neutrophils Absolute Auto 7.3 x10*3/uL (2.0-8.3); Neutrophils Percent Auto 77.1 % (45-73); Platelet Count 193 X10*3/uL (160-400); Red Blood Count 4.16 X10*6/uL (4.20-5.50); Red Cell Distribution Width 13.9 % (11.0-16.0); White Blood Count 9.5 X10*3/uL (4.8-10.8)
[2023-12-07 08:22] LABS: Venous Blood Gas Refer to POC result
[2023-12-07 08:24] LABS: VBG Base Excess 6.3 mmol/L; VBG HCO3 29 mmol/L (22-26); VBG pCO2 38 mmHg; VBG pH 7.49 (7.32-7.43); VBG pO2 69 mmHg
[2023-12-07 08:36] LABS: Alanine Aminotransferase 13 U/L (0-31); Albumin Level 3.2 g/dL (3.5-5.0); Alkaline Phosphatase 123 U/L (39-117); Anion Gap 18 (12-20); Aspartate Amino Transferase 32 U/L (5-31); Bilirubin Direct 0.3 mg/dL (0.0-0.5); Bilirubin Total 0.7 mg/dL (0.0-1.0); Blood Urea Nitrogen 14 mg/dL (9-16); Calcium 9.1 mg/dL (8.4-10.2); Carbon Dioxide 26 mmol/L (22-29); Chloride 94 mmol/L (96-108); Estimated Glomerular Filt Rate 27; Glucose Random 109 mg/dL (60-115); Potassium 4.3 mmol/L (3.3-5.1); Sodium 134 mmol/L (135-145)
[2023-12-07] MEDS: Metoprolol Tartrate 5 MG/5 ML VIAL IVPUSH (08:37)
[2023-12-07 08:43] LABS: B Type Natriuretic Peptide 66 pg/mL (<100); Troponin-I High Sensitivity 20.9 ng/L (<3.5-17.0)
[2023-12-07 09:03] LABS: Influenza A PCR NEGATIVE (Negative); Influenza B PCR NEGATIVE (Negative); Resp Syncy Virus RNA Qual PCR NEGATIVE (Negative); SARS COV2 PCR INHOUSE NEGATIVE (Negative)
[2023-12-07] MEDS: 0.9 % Sodium Chloride 1,000 ML 999 ML IVCONT (11:34)
[2023-12-07 12:14] LABS: Troponin-I High Sensitivity 19.5 ng/L (<3.5-17.0)
--- NOTE | 2023-12-07 13:21 | P.HPHOSP_ITS ---
History of Present Illness Date of Service: 12/07/23 <BANG Resendez - Last Filed: 12/07/23 14:26> Attending physician on admission: Nilda Fuller <BANG Resendez - Last Filed: 12/07/23 14:26> Chief Complaint: not wearing o2 at facility <BANG Resendez - Last Filed: 12/07/23 14:26> 88-year-old female with a PMH significant for?COPD chronically on 2-3L home O2, HTN, HLD, HFpEF, paroxysmal AFib not on anticoagulation, hx of CO around 5 years ago, R adnexal mass, and hypothyroidism presented to the ED from [facility] for evaluation of productive cough, diffuse body pain including chest pain and headache and patient reportedly having a difficult time wearing her oxygen. The patient is a very poor historian and is refusing to answer review of systems questions asking provider to leave though does allow for heart and lung exam. On arrival, patient was in AFib with RVR, rates up to the high 120s with improvement to high 90s though did elevate to 118 when talking following 5 mg Lopressor and IV fluids. Was hypertensive to 204/92 on arrival, 168/76 on admission. No fevers. She is on baseline 2 L home O2 via nasal cannula maintaining oximetry 95%. There is no leukocytosis. Creatinine slightly bumped from baseline at 1.79 but no true RONAK. Sodium 134, chloride 94, electrolytes otherwise normal. Initial troponin 20.9, repeat 19.5. BNP 66. Negative for COVID-19, RSV, influenza. Chest x-ray negative for any acute cardiopulmonary abnormalities but shows marked centrilobular pulmonary emphysema, hiatal hernia, and multiple posterolateral right rib chronic posttraumatic deformities. EKG shows atrial fibrillation with RVR, rate [address]/T-wave abnormalities. In the ED, has received 1 L IVF, 5 mg IV Lopressor, 25 mg hydralazine, 5 mg amlodipine, and 40 mg IV methylprednisolone. <BANG Resendez - Last Filed: 12/07/23 14:26> Review of Systems 2 Review of Systems: Yes Unobtainable due to mental status <BANG Resendez - Last Filed: 12/07/23 14:26> [facility] Medical History: Medical History Adnexal mass Abdominal aortic aneurysm CKD (chronic kidney disease) stage 3, GFR 30-59 ml/min Myocardial infarction Hypothyroidism Hyperlipidemia COPD (chronic obstructive pulmonary disease) HTN (hypertension) PAF (paroxysmal atrial fibrillation) <BANG Resendez - Last Filed: 12/07/23 14:26> Family History: Family History Father History of heart disease Mother History of heart disease <BANG Resendez - Last Filed: 12/07/23 14:26> Social History: Social History Household Members: None Housing: Intermediate Do you presently have visiting nurse or other home services: Yes Alcohol intake: never Comment: Sitter in room Patient Tobacco Use Status: Never used Tobacco Advance Directives: Yes Advance Directives on File: Yes Advance Directives Date on File: 10/16/23 Do you have a plan to hurt others: No Plan service: No Current occupational status: retired <BANG Resendez - Last Filed: 12/07/23 14:26> Meds Allergies/Adverse reactions: Allergies Allergy/AdvReac Type Severity Reaction Status Date / Time adhesive tape [Adhesive Tape] Allergy Unknown RASH Verified 12/02/23 21:11 codeine [Codeine] Allergy Unknown SWELLING Verified 12/07/23 06:40 Iodinated Contrast Media Allergy Unknown UNKNOWN Verified 12/07/23 06:40 [IV Dye, Iodine Containing] iodine [Iodine] Allergy Unknown UNKNOWN Verified 12/07/23 06:40 oxycodone [Percocet] Allergy Unknown unknown Verified 12/07/23 06:40 papaya [Papaya] Allergy Unknown HIVES Verified 12/07/23 06:40 pineapple [Pineapple] Allergy Unknown HIVES Verified 12/07/23 06:40 strawberry [Orma] Allergy Unknown HIVES Verified 12/07/23 06:40 Codeine Phosphate Allergy Unknown unknown Uncoded 12/07/23 06:40 Novocain Allergy Unknown unknown Uncoded 12/07/23 06:40 From Vicodin AdvReac Unknown NAUSEA & Uncoded 12/07/23 06:40 VOMITING <BANG Resendez - Last Filed: 12/07/23 14:26> Active Medications: Current Medications Acetaminophen (Acetaminophen 325 Mg Tablet) 650 mg PO Q6H PRN PRN Reason: Pain, Mild (Pain Scale 1-3) Enoxaparin Sodium (Enoxaparin Sodium 30 Mg/0.3 Ml Syringe) 30 mg SUBCUT Q24H TOBI Ondansetron HCl (Ondansetron Hcl 4 Mg/2 Ml Vial) 4 mg IVPUSH Q8H PRN PRN Reason: Nausea and Vomiting Sodium Chloride (0.9 % Sodium Chloride Flush 3 Ml Syringe) 3 ml IVFLUSH QSHIFT TOBI <BANG Resendez - Last Filed: 12/07/23 14:26> Home medications: Home Medications ?Medication ?Instructions ?Recorded ?Confirmed ?Last Taken ?Type gabapentin 300 mg capsule 300 mg PO BID Pain 07/13/20 12/07/23 12/20/22 History ipratropium bromide 17 2 puff inhalation QID PRN 07/13/20 12/07/23 12/20/22 History mcg/actuation HFA aerosol inhaler Shortness Of Breath levothyroxine 50 mcg tablet 50 mcg PO SUTUTHSA@0600 07/13/20 12/07/23 12/20/22 History magnesium oxide 400 mg (241.3 mg 400 mg PO BEDTIME 07/13/20 12/07/23 12/20/22 History magnesium) tablet famotidine 20 mg tablet 20 mg PO BID 12/21/22 12/07/23 12/20/22 History montelukast 10 mg tablet 10 mg PO BEDTIME 12/21/22 12/07/23 12/20/22 History multivitamin 1 tab PO DAILY 12/21/22 12/07/23 12/20/22 History amlodipine 5 mg tablet 5 mg PO BID 09/12/23 12/07/23 Unknown History furosemide 20 mg tablet 60 mg PO DAILY 09/28/23 12/07/23 11/22/23 History aspirin 81 mg capsule 81 mg PO DAILY 10/27/23 12/07/23 Unknown History ipratropium 0.5 mg-albuterol 3 mg 3 ml inhalation Q4H PRN Wheezing 10/27/23 12/07/23 Unknown History (2.5 mg base)/3 mL nebulization soln acetaminophen 325 mg tablet 650 mg PO Q8H PRN Fever Or Pain 11/06/23 12/07/23 Unknown History levothyroxine 75 mcg tablet 75 mcg PO MOWEFR@0600 11/22/23 12/07/23 Unknown History acetaminophen 650 mg-DM 20 mg/30 5 ml PO Q4H PRN Cough 12/07/23 12/07/23 Unknown History mL oral liquid (Coricidin HBP Max Cxjd-[id number]-Bsw(acet-DM)) bisacodyl 10 mg rectal suppository 10 mg ID DAILY PRN Constipation 12/07/23 12/07/23 Unknown History docusate sodium 100 mg capsule 100 mg PO DAILY Constipation 12/07/23 12/07/23 Unknown History (Col-Rite) magnesium hydroxide 400 mg/5 mL 30 ml PO DAILY PRN Constipation 12/07/23 12/07/23 Unknown History oral suspension (Milk of Magnesia) naloxone 4 mg/actuation nasal 4 mg intranasal Q3M PRN Opioid 12/07/23 12/07/23 Unknown History spray (Narcan) Overdose sodium phosphates 19 gram-7 118 ml ID DAILY PRN Constipation 12/07/23 12/07/23 Unknown History gram/118 mL enema (Fleet Enema) <BANG Resendez - Last Filed: 12/07/23 14:26> Physical Exam 2 Vital Signs and Narrative: Vital Signs: Last Vital Signs Temp 98.1 F 12/07/23 12:00 Pulse 96 12/07/23 12:00 Resp 15 12/07/23 12:00 BP 168/76 H 12/07/23 12:00 Pulse Ox 95 12/07/23 12:00 O2 Del Method Nasal Cannula 12/07/23 12:00 O2 Flow Rate 2 12/07/23 12:00 Oxygen Flow Rate 2 12/07/23 06:35 BMI result Body Mass Index 24.5 <BANG Resendez - Last Filed: 12/07/23 14:26> Constitutional - Awake and Alert, No apparent distress Eyes - PERRLA, EOMI Cardiovascular - S1S2, RRR, No edema Respiratory - Normal lung expansion, Normal respiratory effort, No respiratory distress, diminished lung sounds bilaterally Gastrointestinal - refuses Extremities - no calf tenderness bilaterally, no swelling Skin - Warm/Dry Neurological - Alert & oriented to self and place. Agitated <BANG Resendez - Last Filed: 12/07/23 14:26> Results Labs CBC and Chem 7: 12/07/23 08:12 12/07/23 08:12 <BANG Resendez - Last Filed: 12/07/23 14:26> Labs: Laboratory Results - last 24 hr 12/07/23 12/07/23 12/07/23 08:12 08:16 11:42 MCV 90.4 MCH 31.3 MCHC 34.6 RDW 13.9 Plt Count 193 MPV 10.7 Immature Gran % (Auto) 0.7 H Neut % (Auto) 77.1 H Lymph % (Auto) 13.6 L Jennings % (Auto) 7.2 Eos % (Auto) 0.8 Baso % (Auto) 0.6 Lymph # (Auto) 1.3 Jennings # (Auto) 0.7 Eos # (Auto) 0.1 Baso # (Auto) 0.1 Abs Immat Gran (auto) 0.07 H Absolute Neuts (auto) 7.3 Absolute Nucleated RBC 0.000 Nucleated RBC % (auto) 0.0 VBG pH 7.49 H VBG pCO2 38 VBG pO2 69 VBG HCO3 29 H VBG O2 Saturation 95.0 VBG Base Excess 6.3 Anion Gap 18 Estim Creat Clear Calc 19.0 Estimated GFR 27 Random Glucose 109 Calcium 9.1 Magnesium 2.0 Total Bilirubin 0.7 Direct Bilirubin 0.3 AST 32 H ALT 13 Alkaline Phosphatase 123 H Troponin I High Sens 20.9 H 19.5 H B-Natriuretic Peptide 66 Total Protein 7.0 Albumin 3.2 L Influenza Type A (PCR) NEGATIVE Influenza Type B (PCR) NEGATIVE RSV RNA Qual (PCR) NEGATIVE SARS-CoV-2 RNA (RT-PCR) NEGATIVE <BANG Resendez - Last Filed: 12/07/23 14:26> Imaging Radiologist's Impressions: Impressions Chest X-Ray 12/07/23 06:41 IMPRESSION: *No acute cardiopulmonary abnormalities identified. *Marked centrilobular pulmonary emphysema. *Moderate sized hiatal hernia. *Multiple posterolateral right rib chronic posttraumatic deformities. <BANG Resendez - Last Filed: 12/07/23 14:26> Assessment and Plan (1) Hypertensive urgency: Status: Acute <BANG Resendez - Last Filed: 12/07/23 14:26> (2) Atrial fibrillation with RVR: Status: Acute <BANG Resendez - Last Filed: 12/07/23 14:26> (3) COPD exacerbation: Status: Acute <BANG Resendez - Last Filed: 12/07/23 14:26> 88-year-old female with a PMH significant for?COPD chronically on 2-3L home O2, HTN, HLD, HFpEF, paroxysmal AFib not on anticoagulation, hx of CO around 5 years ago, R adnexal mass, and hypothyroidism presented to the ED from [facility] admitted for further management of COPD exacerbation with afib rvr # paroxysmal atrial fibrillation with RVR -not on anticoagulation -HR stable at this time. Monitor and consider IV lopressor if HR sustained over 110 -initiate metoprolol 12.5 twice daily -cardiac diet -monitor on telemetry # COPD exacerbation with chronic hypoxemic respiratory failure -chest x-ray negative for pneumonia -IV methylprednisolone 40 mg b.i.d. -DuoNebs q.4h, albuterol p.r.n. -azithromycin for pleiotropic effect -guaifenesin p.r.n. -RPP pending -continue baseline 2 L supplemental O2 # acute metabolic encephalopathy -at prior admissions, patient alert and oriented x4 and occasionally confused. Seems more confused from baseline/agitated -head CT ordered -likely secondary to above -monitor mentation #HTN with hypertensive urgency -trops flat, sllight bump in creat, but no ronak -150/71 on admission -Continue amlodipine, hydralazine. Add metoprolol as above #Abdominal aortic aneurism -CT showed AAA increased from 2019, now measuring 3.5 x 3.6 cm -Recommation is for imaging follow-up every 2 years #CKD stage 3 -slight bump in creat from baseline -received 1L IVF, hold on further IVF -avoid nephrotoxins -follow renal fx, lytes #Hypothyroidism -Continue levothyroxine DVT prophylaxis- lovenox Full code HCP- Kelley brunson [phone] Pt will require inpt stay at least 2 midnights due to atrial fibrillation with RVR requiring cardiac monitoring, IV rate control as well as IV steroids for COPD exacerbation <BANG Resendez - Last Filed: 12/07/23 14:26> 88-year-old female with a PMH significant for?COPD chronically on 2-3L home O2, HTN, HLD, HFpEF, paroxysmal AFib not on anticoagulation, hx of CO around 5 years ago, R adnexal mass, and hypothyroidism presented to the ED from [facility] admitted for further management of COPD exacerbation with afib rvr # paroxysmal atrial fibrillation with RVR -CHADSVACS score 5 ; initiating eliquis -HR stable at this time. Monitor and consider IV lopressor if HR sustained over 110 -initiate metoprolol 12.5 twice daily -cardiac diet -monitor on telemetry # COPD exacerbation with chronic hypoxemic respiratory failure -chest x-ray negative for pneumonia -IV methylprednisolone 40 mg b.i.d. -DuoNebs q.4h, albuterol p.r.n. -azithromycin for pleiotropic effect -guaifenesin p.r.n. -RPP pending -continue baseline 2 L supplemental O2 # acute metabolic encephalopathy -at prior admissions, patient alert and oriented x4 and occasionally confused. Seems more confused from baseline/agitated -head CT ordered -likely secondary to above -monitor mentation #HTN with hypertensive urgency -trops flat, sllight bump in creat, but no ronak -150/71 on admission -Continue amlodipine, hydralazine. Add metoprolol as above #CHFpEF: On lasix #Abdominal aortic aneurism -CT showed AAA increased from 2019, now measuring 3.5 x 3.6 cm -Recommation is for imaging follow-up every 2 years #CKD stage 3 -slight bump in creat from baseline -received 1L IVF, hold on further IVF -avoid nephrotoxins -follow renal fx, lytes #Hypothyroidism -Continue levothyroxine DVT prophylaxis- lovenox Full code HCP- Kelley brunson [phone] Pt will require inpt stay at least 2 midnights due to atrial fibrillation with RVR requiring cardiac monitoring, IV rate control as well as IV steroids for COPD exacerbation <Nilda Fuller MD - Last Filed: 12/07/23 16:16> Quality Stroke Does the patient have a stroke diagnosis?: No <BANG Resendez - Last Filed: 12/07/23 14:26> VTE Prior VTE?: No <BANG Resendez - Last Filed: 12/07/23 14:26> VTE Risk Level:: Medical - moderate - high <BANG Resendez - Last Filed: 12/07/23 14:26> VTE Device Contraindication: Treatment Not Indicated <BANG Resendez - Last Filed: 12/07/23 14:26> VTE Drug Contraindication: N/A - Med Ordered <BANG Resendez - Last Filed: 12/07/23 14:26>
--- NOTE | 2023-12-07 13:27 | PHA.MEDREC ---
Pharmacy Consult ? Medication Reconciliation Pharmacy has completed the medication reconciliation Reviewed med list from [facility]..
--- NOTE | 2023-12-07 13:32 | PC.NURSE ---
Addendum entered by Joyce Mays RN 12/07/23 13:33: patient refusing any additional blood work, provider aware, provider OKayed patient to get iv ABX without cultures, Original Note: patient refusing any additional blood work, melony
[2023-12-07] MEDS: methylPREDNISolone Sod Succ 40 MG/ML VIAL IVPUSH (13:57)
--- NOTE | 2023-12-07 14:13 | PC.NURSE ---
patient refusing antibiotics, additional blood work. patient VSS, respirations equal and unlabored, skin dry and intact
--- NOTE | 2023-12-07 18:10 | PC.NURSE ---
patient still refusing medications, patient will only allow vital signs. patient is awake and alert
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
[2023-12-08] VITALS (8 sets, daily range): BP systolic 130–181; BP diastolic 64–86; PULSE 84–123; RESP 16–20; TEMP 36.3–36.9; O2SAT 87–97
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
--- NOTE | 2023-12-08 04:41 | MHC.EDTECH ---
Pt found to be incontinent of urine/stool. This tech and RN cleaned Pt, repositioned in bed, warm blanket given and call peters within reach.
--- NOTE | 2023-12-08 06:32 | MHC.EDTECH ---
Pt is clean and dry at this time. Warm blanket given, call peters within reach
--- NOTE | 2023-12-08 08:13 | PC.NURSE ---
pt irritable this am, coughing, offered cough medicine, pt resistant to help and care. IV visible in LAC. pt with wet cough, yellow sputum. insulting staff. refusing to have this RN place compliance monitor. she is wearing O2 at this time at 2L. this RN asked pt how she was feeling and she stated wouldn't you like to know . refused AM labs.
--- NOTE | 2023-12-08 08:20 | MHC.CM.PN ---
Patient is documented to be a very poor Historian and refusing to answer questions;CM left a detailed message for Granddaughter/HCP/Kelley @ [phone], addressing the IMM (original will be mailed certified letter to Kelley and a copy will be placed on the chart) The plan is to return to [facility] and CM has initiated and will follow for dc planning.PCP is Dr. Jayjay Sood.
--- NOTE | 2023-12-08 08:31 | PC.NURSE ---
inform MD Fuller that pt refused morning labs
--- NOTE | 2023-12-08 11:33 | MHC.CM.PN ---
Per Granddaughter/HCP/Kelley's request, IMM was delivered to Kelley and Patient at bedside, rather than being mailed certified letter.
--- NOTE | 2023-12-08 11:58 | P.PNIM_ITS ---
Subjective Subjective Date of Service: 12/08/23 Interval History: Continues to be hypertensive. Refusing labs and p.o. medications. Wheezing and heart rate better Review of Systems All systems are negative except as noted Respiratory Respiratory: Reports wheezing Allergic/Immunologic Allergic/Immunologic: Reports wheezing Physical Exam 2 Vital Signs: Vital Signs: Last Vital Signs Temp 98.5 F 12/08/23 08:00 Pulse 123 H 12/08/23 08:00 Resp 20 12/08/23 08:00 BP 180/86 H 12/08/23 08:00 Pulse Ox 95 12/08/23 08:00 O2 Del Method Nasal Cannula 12/08/23 08:00 O2 Flow Rate 5 12/08/23 08:00 Oxygen Flow Rate 2 12/07/23 06:35 BMI result Body Mass Index 24.5 Middle-aged male lying in bed in no distress Neck supple, no JVD Regular rate and rhythm, S1-S2 heard Bilateral wheezing present Abdomen soft nontender, no guarding, no rigidity Patient is awake, alert and oriented to self, in place ; no focal motor deficit Psych: Agitated No pedal edema Objective Data Active Medications Acetaminophen (Acetaminophen 325 Mg Tablet) 650 mg PO Q6H PRN PRN Reason: Pain, Mild (Pain Scale 1-3) Albuterol/Ipratropium (Albuterol/Iprat 2.5/0.5mg 3 Ml Ampul.Neb) 3 ml INHALE RQ4H WHILE AWAKE COUNTS INCLUDE 234 BEDS AT THE [facility] Last Admin: 12/08/23 11:25 Dose: Not Given Documented By: BRIJESH Non-Admin Reason: Patient Refused Albuterol/Ipratropium (Albuterol/Iprat 2.5/0.5mg 3 Ml Ampul.Neb) 3 ml INHALE Q4H PRN PRN Reason: Wheezing Amlodipine Besylate (Amlodipine Besylate 5 Mg Tablet) 5 mg PO BID COUNTS INCLUDE 234 BEDS AT THE [facility]; Protocol Last Admin: 12/08/23 09:22 Dose: Not Given Documented By: RUDDY Non-Admin Reason: Patient Refused Apixaban (Apixaban 2.5 Mg Tablet) 2.5 mg PO BID COUNTS INCLUDE 234 BEDS AT THE [facility] Last Admin: 12/08/23 09:22 Dose: Not Given Documented By: RUDDY Non-Admin Reason: Patient Refused Aspirin (Aspirin Enteric Coated 81 Mg Tablet.) 81 mg PO DAILY COUNTS INCLUDE 234 BEDS AT THE [facility] Last Admin: 12/08/23 09:23 Dose: Not Given Documented By: RUDDY Non-Admin Reason: Patient Refused Bisacodyl (Bisacodyl 10 Mg Supp.Rect) 10 mg [place] DAILY PRN PRN Reason: Constipation Famotidine (Famotidine 20 Mg Tablet) 20 mg PO BID COUNTS INCLUDE 234 BEDS AT THE [facility] Last Admin: 12/08/23 09:23 Dose: Not Given Documented By: RUDDY Non-Admin Reason: Patient Refused Furosemide (Furosemide 20 Mg Tablet) 60 mg PO DAILY COUNTS INCLUDE 234 BEDS AT THE [facility]; Protocol Last Admin: 12/08/23 09:23 Dose: Not Given Documented By: RUDDY Non-Admin Reason: Patient Refused Gabapentin (Gabapentin 300 Mg Capsule) 300 mg PO BID COUNTS INCLUDE 234 BEDS AT THE [facility] Last Admin: 12/08/23 09:23 Dose: Not Given Documented By: RUDDY Non-Admin Reason: Patient Refused Hydralazine HCl (Hydralazine Hcl 25 Mg Tablet) 25 mg PO TID COUNTS INCLUDE 234 BEDS AT THE [facility]; Protocol Last Admin: 12/08/23 09:23 Dose: Not Given Documented By: RUDDY Non-Admin Reason: Patient Refused Azithromycin 500 mg/ Sodium (Chloride) 250 mls @ 125 mls/hr IV Q24H COUNTS INCLUDE 234 BEDS AT THE [facility] Last Admin: 12/07/23 14:04 Dose: Not Given Documented By: ARTIE Non-Admin Reason: Patient Refused Ipratropium [place] (Ipratropium [place] 1 Puff/17 Mcg Inhaler) 2 puff INHALE QID PRN PRN Reason: Shortness Of Breath Levothyroxine Sodium (Levothyroxine Sodium 50 Mcg Tablet) 50 mcg PO SUTUTHSA@0600 COUNTS INCLUDE 234 BEDS AT THE [facility] Levothyroxine Sodium (Levothyroxine Sodium 75 Mcg Tablet) 75 mcg PO MOWEFR@0600 COUNTS INCLUDE 234 BEDS AT THE [facility] Last Admin: 12/08/23 07:52 Dose: Not Given Documented By: GERMÁN Non-Admin Reason: Patient Refused Magnesium Hydroxide (Milk Of Magnesia 30 Ml Oral.Susp) 30 ml PO DAILY PRN PRN Reason: Constipation Magnesium Hydroxide (Milk Of Magnesia 30 Ml Oral.Susp) 30 ml PO DAILY PRN PRN Reason: Constipation Magnesium Oxide (Magnesium Oxide 400 Mg Tablet) 400 mg PO BEDTIME COUNTS INCLUDE 234 BEDS AT THE [facility] Last Admin: 12/08/23 00:50 Dose: Not Given Documented By: RAMSES Non-Admin Reason: Patient Refused Methylprednisolone Sodium Succinate (Methylprednisolone Sod Succ 40 Mg/Ml Vial) 40 mg IVPUSH Q12H COUNTS INCLUDE 234 BEDS AT THE [facility] Last Admin: 12/08/23 03:02 Dose: Not Given Documented By: DAISHA Non-Admin Reason: Patient Refused Metoprolol Tartrate (Metoprolol Tartrate 12.5 Mg Halftab) 12.5 mg PO BID COUNTS INCLUDE 234 BEDS AT THE [facility]; Protocol Last Admin: 12/08/23 09:23 Dose: Not Given Documented By: RUDDY Non-Admin Reason: Patient Refused Montelukast Sodium (Montelukast Sodium 10 Mg Tablet) 10 mg PO BEDTIME COUNTS INCLUDE 234 BEDS AT THE [facility] Last Admin: 12/08/23 00:50 Dose: Not Given Documented By: RAMSES Non-Admin Reason: Patient Refused Multivitamins/Vitamin C (Multivitamin Tablet) 1 tab PO DAILY COUNTS INCLUDE 234 BEDS AT THE [facility] Last Admin: 12/08/23 09:23 Dose: Not Given Documented By: RUDDY Non-Admin Reason: Patient Refused Ondansetron HCl (Ondansetron Hcl 4 Mg/2 Ml Vial) 4 mg IVPUSH Q8H PRN PRN Reason: Nausea and Vomiting Polyethylene Glycol (Polyethylene Glycol 3350 17 Gm Powd.Pack) 17 gm PO DAILY COUNTS INCLUDE 234 BEDS AT THE [facility] Last Admin: 12/08/23 09:23 Dose: Not Given Documented By: RUDDY Non-Admin Reason: Patient Refused Potassium Chloride (Potassium Chloride Er 20 Meq Tab.Er.Prt) 20 meq PO BID COUNTS INCLUDE 234 BEDS AT THE [facility] Last Admin: 12/08/23 09:23 Dose: Not Given Documented By: RUDDY Non-Admin Reason: Patient Refused Sodium Biphosphate/Sodium Phosphate (Sodium Phosphate,[place]-Dibasic 133 Ml Enema) 118 ml [place] DAILY PRN PRN Reason: Constipation Sodium Chloride (0.9 % Sodium Chloride Flush 3 Ml Syringe) 3 ml IVFLUSH QSHIFT COUNTS INCLUDE 234 BEDS AT THE [facility] Last Admin: 12/08/23 09:22 Dose: Not Given Documented By: RUDDY Non-Admin Reason: Patient Refused Labs 12/07/23 08:12 12/07/23 08:12 Labs: Laboratory Results - last 24 hr 12/07/23 11:42 Troponin I High Sens 19.5 H Assessment and Plan (1) Hypertensive urgency: Status: Acute (2) Atrial fibrillation with RVR: Status: Acute Plan 88-year-old female with a PMH significant for?COPD chronically on 2-3L home O2, HTN, HLD, HFpEF, paroxysmal AFib not on anticoagulation, hx of [place] around 5 years ago, R adnexal mass, and hypothyroidism presented to the ED from [facility] admitted for further management of COPD exacerbation with afib rvr # paroxysmal atrial fibrillation with RVR -CHADSVACS score 5 ; initiating eliquis -initiated metoprolol 12.5 twice daily -cardiac diet -monitor on telemetry # COPD exacerbation with chronic hypoxemic respiratory failure -chest x-ray negative for pneumonia -IV methylprednisolone 40 mg b.i.d. -DuoNebs q.4h, albuterol p.r.n. -azithromycin for pleiotropic effect -guaifenesin p.r.n. -RPP pending -continue baseline 2 L supplemental O2 #HTN with hypertensive urgency -continues to be hypertensive, intermittently refusing po meds -Continue amlodipine, hydralazine. Added metoprolol as above #Agitation/refusing po meds: Consulting psych #CHFpEF: On lasix #Abdominal aortic aneurism -CT showed AAA increased from 2019, now measuring 3.5 x 3.6 cm -Recommation is for imaging follow-up every 2 years #CKD stage 3 -slight bump in creat from baseline -avoid nephrotoxins -follow renal fx, lytes #Hypothyroidism -Continue levothyroxine DVT prophylaxis- lovenox Full code HCP- Kelley brunson [phone] Reason for continued hospitalization: wheezing, IV steroids, BP monitoring, psych eval Quality Stroke Does the patient have a stroke diagnosis?: No VTE Prior VTE?: No VTE Risk Level:: Medical - moderate - high VTE Device Contraindication: Treatment Not Indicated VTE Drug Contraindication: N/A - Med Ordered
[2023-12-08] MEDS: methylPREDNISolone Sod Succ 40 MG/ML VIAL IVPUSH (12:24)
[2023-12-08] MEDS: Azithromycin 500 MG in 0.9 % Sodium Chloride 250 ML 125 MG IV (12:25)
[2023-12-08] MEDS: Furosemide 20 MG TABLET 60 MG PO (12:49)
--- NOTE | 2023-12-08 14:55 | PM.PSYCN ---
History of Present Illness Date of Service: 12/08/2023 Chief Complaint: afib rvr, copd, exacerbation Reason for Consult: pt refusing po meds/labs ; discharge planning Requesting physician: Nilda Fuller Discussed with referring provider: Yes Sources of Information: patient interviewed and chart reviewed HPI Narrative: Patient is a 88 year old female with a PMH significant for COPD chronically on 2-3L home O2, HTN, HLD, HFpEF, paroxysmal AFib not on anticoagulation, hx of [place] around 5 years ago, R adnexal mass, and hypothyroidism presented to the ED from [facility] admitted for further management of COPD exacerbation with afib rvr Psychiatric consult for: pt refusing po meds/labs ; discharge planning During psychiatric assessment, pt presents alert and oriented (pt knew time, location, situation), calm, cooperative, friendly and making jokes. Pt reports feeling okay today; when discussing why she has been refusing medications and labs, pt stated, if I don't recognize the pill, I won't take it. Some days I don't take the pills cause I don't feel like it. I know the consequences of not taking them, I could feel worse and get sick . Pt educated regarding importance of medication compliance. Pt denies past psychiatric hx; denies hx of substance abuse. When discussing receiving lab work; pt stated, they already made me black and blue so I didn't want to get more labs. I bruise easily . Pt educated regarding importance of obtaining labs. Past Psychiatric History: denies Medical Evaluation Reviewed: Yes Review of Systems Constitutional: Reports as per HPI Eyes: Reports as per HPI Reports as per HPI Cardiovascular: Reports as per HPI Respiratory: Reports as per HPI Gastrointestinal: Reports as per HPI Genitourinary: Reports as per HPI Musculoskeletal: Reports as per HPI Skin/Breast: Reports as per HPI Reports as per HPI Psychiatric: Reports as per HPI Endocrine: Reports as per HPI Hematologic/Lymphatic: Reports as per HPI Allergic/Immunologic: Reports as per HPI [facility] Medical History Adnexal mass Abdominal aortic aneurysm CKD (chronic kidney disease) stage 3, GFR 30-59 ml/min Myocardial infarction Hypothyroidism Hyperlipidemia COPD (chronic obstructive pulmonary disease) HTN (hypertension) PAF (paroxysmal atrial fibrillation) Family History: unknown Social History: , 2 children. Substance History: denies Trauma History: yes;pt did not elaborate. Diagnostics Vital Signs (24Hr): Vital Signs - 24 hr 12/07/23 16:08 12/07/23 18:07 12/07/23 22:17 Temperature 98.3 F 98.2 F Pulse Rate 93 106 H 95 Respiratory Rate 18 16 Blood Pressure 164/75 H 149/61 H 162/73 H Pulse Oximetry 98 97 94 Oxygen Delivery Method Nasal Cannula Room Air Room Air Oxygen Flow Rate 2 12/08/23 00:49 12/08/23 00:49 12/08/23 03:57 Temperature 97.4 F Pulse Rate 84 Respiratory Rate 16 Blood Pressure 162/73 H 162/73 H 130/64 Pulse Oximetry 97 Oxygen Delivery Method Room Air Oxygen Flow Rate 12/08/23 06:14 12/08/23 08:00 12/08/23 12:00 Temperature 98.1 F 98.5 F Pulse Rate 100 123 H Respiratory Rate 16 20 Blood Pressure 162/85 H 180/86 H 137/80 Pulse Oximetry 97 95 Oxygen Delivery Method Room Air Nasal Cannula Oxygen Flow Rate 4 5 12/08/23 14:38 Temperature Pulse Rate Respiratory Rate Blood Pressure 137/70 Pulse Oximetry Oxygen Delivery Method Oxygen Flow Rate BMI result Body Mass Index 24.5 Labs 12/07/23 08:12 12/07/23 08:12 Labs: Laboratory Results - last 48 hr 12/07/23 12/07/23 12/07/23 08:12 08:16 11:42 WBC 9.5 RBC 4.16 L Hgb 13.0 Hct 37.6 MCV 90.4 MCH 31.3 MCHC 34.6 RDW 13.9 Plt Count 193 MPV 10.7 Immature Gran % (Auto) 0.7 H Neut % (Auto) 77.1 H Lymph % (Auto) 13.6 L Isabella % (Auto) 7.2 Eos % (Auto) 0.8 Baso % (Auto) 0.6 Lymph # (Auto) 1.3 Isabella # (Auto) 0.7 Eos # (Auto) 0.1 Baso # (Auto) 0.1 Abs Immat Gran (auto) 0.07 H Absolute Neuts (auto) 7.3 Absolute Nucleated RBC 0.000 Nucleated RBC % (auto) 0.0 VBG pH 7.49 H VBG pCO2 38 VBG pO2 69 VBG HCO3 29 H VBG O2 Saturation 95.0 VBG Base Excess 6.3 Sodium 134 L Potassium 4.3 D Chloride 94 L Carbon Dioxide 26 Anion Gap 18 BUN 14 Creatinine 1.79 H Estim Creat Clear Calc 19.0 Estimated GFR 27 Random Glucose 109 Calcium 9.1 Magnesium 2.0 Total Bilirubin 0.7 Direct Bilirubin 0.3 AST 32 H ALT 13 Alkaline Phosphatase 123 H Troponin I High Sens 20.9 H 19.5 H B-Natriuretic Peptide 66 Total Protein 7.0 Albumin 3.2 L Influenza Type A (PCR) NEGATIVE Influenza Type B (PCR) NEGATIVE RSV RNA Qual (PCR) NEGATIVE SARS-CoV-2 RNA (RT-PCR) NEGATIVE Imaging Radiology Impressions: ITS Impressions Chest X-Ray 12/07/23 06:41 IMPRESSION: *No acute cardiopulmonary abnormalities identified. *Marked centrilobular pulmonary emphysema. *Moderate sized hiatal hernia. *Multiple posterolateral right rib chronic posttraumatic deformities. Head CT 12/07/23 15:10 IMPRESSION: No acute intracranial pathology. Mental Status Exam Mental Status Exam Narrative: Pt is alert and oriented; behavior is cooperative, friendly and calm; dressed in hospital attire; mood is described as good ; eye contact appropriate; Speech is normal rate, volume and prosody and not pressured; thought process is organized; Thought content is on tx; denies SI/HI/VH/AH. Medications Medications Current Medications Acetaminophen (Acetaminophen 325 Mg Tablet) 650 mg PO Q6H PRN PRN Reason: Pain, Mild (Pain Scale 1-3) Albuterol/Ipratropium (Albuterol/Iprat 2.5/0.5mg 3 Ml Ampul.Neb) 3 ml INHALE RQ4H WHILE AWAKE [facility] Last Admin: 12/08/23 11:25 Dose: Not Given Albuterol/Ipratropium (Albuterol/Iprat 2.5/0.5mg 3 Ml Ampul.Neb) 3 ml INHALE Q4H PRN PRN Reason: Wheezing Amlodipine Besylate (Amlodipine Besylate 5 Mg Tablet) 5 mg PO BID [facility]; Protocol Last Admin: 12/08/23 09:22 Dose: Not Given Apixaban (Apixaban 2.5 Mg Tablet) 2.5 mg PO BID [facility] Last Admin: 12/08/23 09:22 Dose: Not Given Aspirin (Aspirin Enteric Coated 81 Mg Tablet.) 81 mg PO DAILY [facility] Last Admin: 12/08/23 09:23 Dose: Not Given Bisacodyl (Bisacodyl 10 Mg Supp.Rect) 10 mg [place] DAILY PRN PRN Reason: Constipation Famotidine (Famotidine 20 Mg Tablet) 20 mg PO BID [facility] Last Admin: 12/08/23 09:23 Dose: Not Given Furosemide (Furosemide 20 Mg Tablet) 60 mg PO DAILY [facility]; Protocol Last Admin: 12/08/23 12:49 Dose: 60 mg Gabapentin (Gabapentin 300 Mg Capsule) 300 mg PO BID [facility] Last Admin: 12/08/23 09:23 Dose: Not Given Hydralazine HCl (Hydralazine Hcl 25 Mg Tablet) 25 mg PO TID [facility]; Protocol Last Admin: 12/08/23 09:23 Dose: Not Given Azithromycin 500 mg/ Sodium (Chloride) 250 mls @ 125 mls/hr IV Q24H [facility] Last Admin: 12/08/23 12:25 Dose: 125 mls/hr Ipratropium [place] (Ipratropium [place] 1 Puff/17 Mcg Inhaler) 2 puff INHALE QID PRN PRN Reason: Shortness Of Breath Levothyroxine Sodium (Levothyroxine Sodium 50 Mcg Tablet) 50 mcg PO SUTUTHSA@0600 [facility] Levothyroxine Sodium (Levothyroxine Sodium 75 Mcg Tablet) 75 mcg PO MOWEFR@0600 [facility] Last Admin: 12/08/23 07:52 Dose: Not Given Magnesium Hydroxide (Milk Of Magnesia 30 Ml Oral.Susp) 30 ml PO DAILY PRN PRN Reason: Constipation Magnesium Hydroxide (Milk Of Magnesia 30 Ml Oral.Susp) 30 ml PO DAILY PRN PRN Reason: Constipation Magnesium Oxide (Magnesium Oxide 400 Mg Tablet) 400 mg PO BEDTIME [facility] Last Admin: 12/08/23 00:50 Dose: Not Given Methylprednisolone Sodium Succinate (Methylprednisolone Sod Succ 40 Mg/Ml Vial) 40 mg IVPUSH Q12H [facility] Last Admin: 12/08/23 12:24 Dose: 40 mg Metoprolol Tartrate (Metoprolol Tartrate 12.5 Mg Halftab) 12.5 mg PO BID [facility]; Protocol Last Admin: 12/08/23 09:23 Dose: Not Given Montelukast Sodium (Montelukast Sodium 10 Mg Tablet) 10 mg PO BEDTIME [facility] Last Admin: 12/08/23 00:50 Dose: Not Given Multivitamins/Vitamin C (Multivitamin Tablet) 1 tab PO DAILY [facility] Last Admin: 12/08/23 09:23 Dose: Not Given Ondansetron HCl (Ondansetron Hcl 4 Mg/2 Ml Vial) 4 mg IVPUSH Q8H PRN PRN Reason: Nausea and Vomiting Polyethylene Glycol (Polyethylene Glycol 3350 17 Gm Powd.Pack) 17 gm PO DAILY [facility] Last Admin: 12/08/23 09:23 Dose: Not Given Potassium Chloride (Potassium Chloride Er 20 Meq Tab.Er.Prt) 20 meq PO BID [facility] Last Admin: 12/08/23 09:23 Dose: Not Given Sodium Biphosphate/Sodium Phosphate (Sodium Phosphate,[place]-Dibasic 133 Ml Enema) 118 ml [place] DAILY PRN PRN Reason: Constipation Sodium Chloride (0.9 % Sodium Chloride Flush 3 Ml Syringe) 3 ml IVFLUSH QSHIFT [facility] Last Admin: 12/08/23 09:22 Dose: Not Given Allergies Allergies Allergy/AdvReac Type Severity Reaction Status Date / Time adhesive tape [Adhesive Tape] Allergy Unknown RASH Verified 12/02/23 21:11 codeine [Codeine] Allergy Unknown SWELLING Verified 12/07/23 06:40 Iodinated Contrast Media Allergy Unknown UNKNOWN Verified 12/07/23 06:40 [IV Dye, Iodine Containing] iodine [Iodine] Allergy Unknown UNKNOWN Verified 12/07/23 06:40 oxycodone [Percocet] Allergy Unknown unknown Verified 12/07/23 06:40 papaya [Papaya] Allergy Unknown HIVES Verified 12/07/23 06:40 pineapple [Pineapple] Allergy Unknown HIVES Verified 12/07/23 06:40 strawberry [Wyalusing] Allergy Unknown HIVES Verified 12/07/23 06:40 Codeine Phosphate Allergy Unknown unknown Uncoded 12/07/23 06:40 Novocain Allergy Unknown unknown Uncoded 12/07/23 06:40 From Vicodin AdvReac Unknown NAUSEA & Uncoded 12/07/23 06:40 VOMITING Assessment & Plan Assessment & Plan (1) Mood change: Status: Acute Code(s): R45.86 - Emotional lability Plan Psychiatric consult for: pt refusing po meds/labs ; discharge planning During psychiatric assessment, pt presents alert and oriented (pt knew time, location, situation), calm, cooperative, friendly and making jokes. Pt reports feeling okay today; when discussing why she has been refusing medications and labs, pt stated, if I don't recognize the pill, I won't take it. Some days I don't take the pills cause I don't feel like it. I know the consequences of not taking them, I could feel worse and get sick . Pt educated regarding importance of medication compliance. Pt denies past psychiatric hx; denies hx of substance abuse. When discussing receiving lab work; pt stated, they already made me black and blue so I didn't want to get more labs. I bruise easily . Pt educated regarding importance of obtaining labs. Hospitalist notified. Recommendation: -Continue to encourage medication compliance and obtaining labs. Total time managing care of this patient today _30___ minutes. Patient educated on: medication risk/benefits Informed Consent: understands
[2023-12-08] MEDS: Albuterol/Iprat 2.5/0.5MG 3 ML AMPUL.NEB INHALE (15:28)
[2023-12-08] MEDS: Magnesium Oxide 400 MG TABLET PO (22:09)
[2023-12-08] MEDS: Metoprolol Tartrate 12.5 MG HALFTAB PO (22:09)
[2023-12-08] MEDS: hydrALAZINE HCl 25 MG TABLET PO (22:09)
[2023-12-08] MEDS: Gabapentin 300 MG CAPSULE PO (22:09)
[2023-12-08] MEDS: amLODIPine Besylate 5 MG TABLET PO (22:09)
[2023-12-08] MEDS: 0.9 % Sodium Chloride Flush 3 ML SYRINGE IVFLUSH (22:10)
[2023-12-08] MEDS: Apixaban 2.5 MG TABLET PO (22:10)
[2023-12-08] MEDS: Famotidine 20 MG TABLET PO (22:10)
[2023-12-08] MEDS: Montelukast Sodium 10 MG TABLET PO (22:10)
[2023-12-08] MEDS: Potassium Chloride ER 20 MEQ TAB.ER.PRT PO (22:10)
[2023-12-09] VITALS (11 sets, daily range): BP systolic 126–137; BP diastolic 60–76; PULSE 71–96; RESP 16–20; TEMP 36.3–36.7; O2SAT 93–98
[2023-12-09] MEDS: Levothyroxine Sodium 50 MCG TABLET PO (05:36)
[2023-12-09 07:11] LABS: MANUAL DIFF FLAG NO
[2023-12-09 07:15] LABS: Hematocrit 32.7 % (37.0-47.0); Hemoglobin 11.2 g/dl (12.0-16.0); Imm Gran Abs Auto 0.05 X10*3/uL (0.00-0.03); Lymphocytes Percent Auto 19.7 % (20-40); Mean Corpuscular HGB Conc 34.3 g/dl (31.0-35.0); Mean Corpuscular Hemoglobin 31.5 pg (27.0-33.0); Mean Corpuscular Volume 92.1 fL (80.0-98.0); Monocytes Absolute Auto 0.4 X10*3/uL (0.1-1.2); Monocytes Percent Auto 8.9 % (2-11); Neutrophils Absolute Auto 3.4 x10*3/uL (2.0-8.3); Neutrophils Percent Auto 70.4 % (45-73); Platelet Count 194 X10*3/uL (160-400); Red Blood Count 3.55 X10*6/uL (4.20-5.50); Red Cell Distribution Width 13.9 % (11.0-16.0); White Blood Count 4.8 X10*3/uL (4.8-10.8)
[2023-12-09] MEDS: Albuterol/Iprat 2.5/0.5MG 3 ML AMPUL.NEB INHALE ×2 (07:43→19:20)
[2023-12-09 07:52] LABS: Anion Gap 16 (12-20); Blood Urea Nitrogen 17 mg/dL (9-16); Calcium 8.4 mg/dL (8.4-10.2); Carbon Dioxide 27 mmol/L (22-29); Chloride 97 mmol/L (96-108); Creatinine Clr Calc Pharmacy 27.8; Estimated Glomerular Filt Rate 41; Glucose Random 85 mg/dL (60-115); Sodium 136 mmol/L (135-145)
[2023-12-09 08:17] LABS: Thyroid Stimulating Hormone 0.46 uIU/mL (0.32-4.0)
[2023-12-09 08:28] LABS: Vitamin B12 1149 pg/mL (200-900)
[2023-12-09] MEDS: Furosemide 20 MG TABLET 60 MG PO (09:41)
[2023-12-09] MEDS: Multivitamin TABLET 1 TAB PO (09:42)
[2023-12-09] MEDS: hydrALAZINE HCl 25 MG TABLET PO ×3 (09:42→20:34)
[2023-12-09] MEDS: Apixaban 2.5 MG TABLET PO ×2 (09:42→20:35)
[2023-12-09] MEDS: Aspirin Enteric Coated 81 MG TABLET.DR PO (09:42)
[2023-12-09] MEDS: Gabapentin 300 MG CAPSULE PO ×2 (09:42→20:35)
[2023-12-09] MEDS: Potassium Chloride ER 20 MEQ TAB.ER.PRT PO ×2 (09:42→20:35)
[2023-12-09] MEDS: amLODIPine Besylate 5 MG TABLET PO ×2 (09:43→20:35)
[2023-12-09] MEDS: Metoprolol Tartrate 12.5 MG HALFTAB PO ×2 (09:43→20:35)
[2023-12-09] MEDS: 0.9 % Sodium Chloride Flush 3 ML SYRINGE IVFLUSH ×3 (09:44→20:36)
[2023-12-09] MEDS: methylPREDNISolone Sod Succ 40 MG/ML VIAL IVPUSH (13:15)
[2023-12-09] MEDS: Azithromycin 500 MG in 0.9 % Sodium Chloride 250 ML 125 MG IV (13:15)
--- NOTE | 2023-12-09 13:51 | P.PNIM_ITS ---
Subjective Subjective Date of Service: 12/09/23 Interval History: Being followed for AFib/RVR and COPD exacerbation Patient intermittently refusing medications and lab draws This morning patient awake alert, cooperative denies chest pain, no palpitations or shortness of breath, no acute events overnight. Review of Systems All other system reviewed and negative. Physical Exam 2 Vital Signs: Vital Signs: Last Vital Signs Temp 97.4 F 12/09/23 11:45 Pulse 78 12/09/23 11:45 Resp 20 12/09/23 11:45 BP 135/61 12/09/23 11:45 Pulse Ox 93 12/09/23 11:45 O2 Del Method Nasal Cannula 12/09/23 11:45 O2 Flow Rate 1 12/09/23 11:45 Oxygen Flow Rate 2 12/07/23 06:35 BMI result Body Mass Index 24.5 Const: Other: General awake alert x3,resting comfortably in no acute distress. anicteric sclera Neck supple no JVD. CVS regular rate rhythm, no murmurs Respiratory lungs few expiratory wheeze, diminished at bases Gastrointestinal abdomen soft, non tender, bowel sounds audible, no guarding , no rigidity. Extremities no edema Neuro non focal , moving all 4 extremity speech clear. skin no rash psych appropriate affect. Objective Data Active Medications Acetaminophen (Acetaminophen 325 Mg Tablet) 650 mg PO Q6H PRN PRN Reason: Pain, Mild (Pain Scale 1-3) Albuterol/Ipratropium (Albuterol/Iprat 2.5/0.5mg 3 Ml Ampul.Neb) 3 ml INHALE RQ4H WHILE AWAKE [facility] Last Admin: 12/09/23 11:24 Dose: Not Given Documented By: JASVIR Non-Admin Reason: Patient Refused Albuterol/Ipratropium (Albuterol/Iprat 2.5/0.5mg 3 Ml Ampul.Neb) 3 ml INHALE Q4H PRN PRN Reason: Wheezing Amlodipine Besylate (Amlodipine Besylate 5 Mg Tablet) 5 mg PO BID [facility]; Protocol Last Admin: 12/09/23 09:43 Dose: 5 mg Documented By: ANGELICA Apixaban (Apixaban 2.5 Mg Tablet) 2.5 mg PO BID [facility] Last Admin: 12/09/23 09:42 Dose: 2.5 mg Documented By: ANGELICA Aspirin (Aspirin Enteric Coated 81 Mg Tablet.) 81 mg PO DAILY [facility] Last Admin: 12/09/23 09:42 Dose: 81 mg Documented By: ANGELICA Bisacodyl (Bisacodyl 10 Mg Supp.Rect) 10 mg MA DAILY PRN PRN Reason: Constipation Famotidine (Famotidine 20 Mg Tablet) 10 mg PO DAILY [facility] Furosemide (Furosemide 20 Mg Tablet) 60 mg PO DAILY [facility]; Protocol Last Admin: 12/09/23 09:41 Dose: 60 mg Documented By: ANGELICA Gabapentin (Gabapentin 300 Mg Capsule) 300 mg PO BID [facility] Last Admin: 12/09/23 09:42 Dose: 300 mg Documented By: ANGELICA Hydralazine HCl (Hydralazine Hcl 25 Mg Tablet) 25 mg PO TID [facility]; Protocol Last Admin: 12/09/23 09:42 Dose: 25 mg Documented By: ANGELICA Azithromycin 500 mg/ Sodium (Chloride) 250 mls @ 125 mls/hr IV Q24H [facility] Last Admin: 12/09/23 13:15 Dose: 125 mls/hr Documented By: ADRIENNE Ipratropium [place] (Ipratropium [place] 1 Puff/17 Mcg Inhaler) 2 puff INHALE QID PRN PRN Reason: Shortness Of Breath Levothyroxine Sodium (Levothyroxine Sodium 50 Mcg Tablet) 50 mcg PO SUTUTHSA@0600 [facility] Last Admin: 12/09/23 05:36 Dose: 50 mcg Documented By: ROGELIO Levothyroxine Sodium (Levothyroxine Sodium 75 Mcg Tablet) 75 mcg PO MOWEFR@0600 [facility] Last Admin: 12/08/23 07:52 Dose: Not Given Documented By: GERMÁN Non-Admin Reason: Patient Refused Magnesium Hydroxide (Milk Of Magnesia 30 Ml Oral.Susp) 30 ml PO DAILY PRN PRN Reason: Constipation Magnesium Hydroxide (Milk Of Magnesia 30 Ml Oral.Susp) 30 ml PO DAILY PRN PRN Reason: Constipation Magnesium Oxide (Magnesium Oxide 400 Mg Tablet) 400 mg PO BEDTIME [facility] Last Admin: 12/08/23 22:09 Dose: 400 mg Documented By: ROGELIO Methylprednisolone Sodium Succinate (Methylprednisolone Sod Succ 40 Mg/Ml Vial) 40 mg IVPUSH Q12H [facility] Last Admin: 12/09/23 13:15 Dose: 40 mg Documented By: ADRIENNE Metoprolol Tartrate (Metoprolol Tartrate 12.5 Mg Halftab) 12.5 mg PO BID [facility]; Protocol Last Admin: 12/09/23 09:43 Dose: 12.5 mg Documented By: ANGELICA Montelukast Sodium (Montelukast Sodium 10 Mg Tablet) 10 mg PO BEDTIME [facility] Last Admin: 12/08/23 22:10 Dose: 10 mg Documented By: ROGELIO Multivitamins/Vitamin C (Multivitamin Tablet) 1 tab PO DAILY [facility] Last Admin: 12/09/23 09:42 Dose: 1 tab Documented By: ANGELICA Ondansetron HCl (Ondansetron Hcl 4 Mg/2 Ml Vial) 4 mg IVPUSH Q8H PRN PRN Reason: Nausea and Vomiting Polyethylene Glycol (Polyethylene Glycol 3350 17 Gm Powd.Pack) 17 gm PO DAILY [facility] Last Admin: 12/08/23 09:23 Dose: Not Given Documented By: RUDDY Non-Admin Reason: Patient Refused Potassium Chloride (Potassium Chloride Er 20 Meq Tab.Er.Prt) 20 meq PO BID [facility] Last Admin: 12/09/23 09:42 Dose: 20 meq Documented By: ANGELICA Sodium Biphosphate/Sodium Phosphate (Sodium Phosphate,[place]-Dibasic 133 Ml Enema) 118 ml MA DAILY PRN PRN Reason: Constipation Sodium Chloride (0.9 % Sodium Chloride Flush 3 Ml Syringe) 3 ml IVFLUSH QSHIFT [facility] Last Admin: 12/09/23 09:44 Dose: 3 ml Documented By: ANGELICA Labs 12/09/23 06:16 12/09/23 06:16 Labs: Laboratory Results - last 24 hr 12/09/23 06:16 MCV 92.1 MCH 31.5 MCHC 34.3 RDW 13.9 Plt Count 194 MPV 11.0 Immature Gran % (Auto) 1.0 H Neut % (Auto) 70.4 Lymph % (Auto) 19.7 L [place] % (Auto) 8.9 Eos % (Auto) 0.0 Baso % (Auto) 0.0 Lymph # (Auto) 1.0 L [place] # (Auto) 0.4 Eos # (Auto) 0.0 Baso # (Auto) 0.0 Abs Immat Gran (auto) 0.05 H Absolute Neuts (auto) 3.4 Absolute Nucleated RBC 0.000 Nucleated RBC % (auto) 0.0 Anion Gap 16 Estim Creat Clear Calc 27.8 Estimated GFR 41 Random Glucose 85 Calcium 8.4 D Vitamin B12 1149 H TSH 0.46 Assessment and Plan (1) Hypertensive urgency: Status: Acute (2) Atrial fibrillation with RVR: Status: Acute Plan 88-year-old female with a PMH significant for?COPD chronically on 2-3L home O2, HTN, HLD, HFpEF, paroxysmal AFib not on anticoagulation, hx of [place] around 5 years ago, R adnexal mass, and hypothyroidism presented to the ED from [facility] admitted for further management of COPD exacerbation with afib rvr # paroxysmal atrial fibrillation with RVR -CHADSVACS score 5 ; initiating eliquis -initiated metoprolol 12.5 twice daily -cardiac diet -monitor on telemetry # COPD exacerbation with chronic hypoxemic respiratory failure -stable oxygenation will dc IV steroids and transitioned to by mouth steroids -chest x-ray negative for pneumonia -change DuoNebs from q.4h, to q.6 hours while awake,cont. albuterol p.r.n. -azithromycin for pleiotropic effect -guaifenesin p.r.n. -respiratory viral panel not collected -continue baseline 2 L supplemental O2 #HTN with hypertensive urgency -continues to be hypertensive, intermittently refusing po meds -Continue amlodipine, hydralazine. Added metoprolol as above # acute metabolic encephalopathy Resolved patient noted to be refusing meds and lab draws seen by Psychiatry they recommend to encourage patient to take medications , patient calm and cooperative today. #CHFpEF: On lasix #Abdominal aortic aneurism -CT showed AAA increased from 2019, now measuring 3.5 x 3.6 cm -Recommation is for imaging follow-up every 2 years #CKD stage 3 -renal function returned to baseline continue to avoid nephrotoxins follow BMP #Hypothyroidism -TSH 0.46, Continue levothyroxine DVT prophylaxis- lovenox Full code HCP- Kelley brunson [phone] Reason for continued hospitalization: COPD exacerbation, need close respiratory and cardiac monitoring and safe disposition Quality Stroke Does the patient have a stroke diagnosis?: No VTE Prior VTE?: No VTE Risk Level:: Medical - moderate - high VTE Device Contraindication: Treatment Not Indicated VTE Drug Contraindication: N/A - Med Ordered
[2023-12-09] MEDS: Acetaminophen 325 MG TABLET 650 MG PO (20:35)
[2023-12-09] MEDS: Magnesium Oxide 400 MG TABLET PO (20:35)
[2023-12-09] MEDS: Montelukast Sodium 10 MG TABLET PO (20:35)
[2023-12-10] VITALS: BP 135/62; PULSE 66; RESP 18; TEMP 36.2; O2SAT 97
[2023-12-10 04:00] VITALS: BP 130/64; PULSE 70; RESP 20; TEMP 36.6; O2SAT 98
[2023-12-10] MEDS: Levothyroxine Sodium 50 MCG TABLET PO (05:12)
[2023-12-10 07:40] VITALS: PULSE 77; RESP 18; O2SAT 95
[2023-12-10] MEDS: Albuterol/Iprat 2.5/0.5MG 3 ML AMPUL.NEB INHALE (07:40)
[2023-12-10 08:00] VITALS: BP 138/56; PULSE 76; RESP 16; TEMP 36.3; O2SAT 93
[2023-12-10 12:00] VITALS: BP 123/64; PULSE 88; RESP 19; TEMP 36.4; O2SAT 95
[2023-12-10] MEDS: Metoprolol Tartrate 12.5 MG HALFTAB PO (12:05)
[2023-12-10] MEDS: Apixaban 2.5 MG TABLET PO (12:05)
[2023-12-10] MEDS: amLODIPine Besylate 5 MG TABLET PO (12:05)
[2023-12-10] MEDS: Furosemide 20 MG TABLET 60 MG PO (12:05)
[2023-12-10] MEDS: 0.9 % Sodium Chloride Flush 3 ML SYRINGE IVFLUSH (12:06)
--- NOTE | 2023-12-10 12:14 | P.DS_ITS ---
DS: Providers Provider Date of Service: 12/10/23 Date of admission: 12/07/23 13:16 Primary care physician: Jayjay Sood MD Consults: 12/08/23 09:50 Consult to Psychiatry Stat Consulting Provider: Psych Covering Reason for consultation: pt refusing po meds/labs ; discharge planning DS: Diagnosis Discharge Diagnosis (1) Hypertensive urgency: Status: Acute (2) Atrial fibrillation with RVR: Status: Acute DS: Summary Hospital Course Hospital Course: History of presenting illness: Date of Service: 12/07/23 Attending physician on admission: Nilda Fuller Chief Complaint: not wearing o2 at facility 88-year-old female with a PMH significant for?COPD chronically on 2-3L home O2, HTN, HLD, HFpEF, paroxysmal AFib not on anticoagulation, hx of [place] around 5 years ago, R adnexal mass, and hypothyroidism presented to the ED from [facility] for evaluation of productive cough, diffuse body pain including chest pain and heada ana rosa and patient reportedly having a difficult time wearing her oxygen. The patient is a very poor historian and is refusing to answer review of systems questions asking provider to leave though does allow for heart and lung exam. On arrival, patient was in AFib with RVR, rates up to the high 120s with improvement to high 90s though did elevate to 118 when talking following 5 mg Lopressor and IV fluids. Was hypertensive to 204/92 on arrival, 168/76 on admission. No fevers. She is on baseline 2 L home O2 via nasal cannula maintaining oximetry 95%. There is no leukocytosis. Creatinine slightly bumped from baseline at 1.79 but no true RONAK. Sodium 134, chloride 94, electrolytes otherwise normal. Initial troponin 20.9, repeat 19.5. BNP 66. Negative for COVID-19, RSV, influenza. Chest x-ray negative for any acute cardiopulmonary abnormalities but shows marked centrilobular pulmonary emphysema, hiatal hernia, and multiple posterolateral right rib chronic posttraumatic deformities. EKG shows atrial fibrillation with RVR, rate [address]/T-wave abnormalities. In the ED, has received 1 L IVF, 5 mg IV Lopressor, 25 mg hydralazine, 5 mg amlodipine, and 40 mg IV methylprednisolone. Hospital course: 88-year-old female with a PMH significant for?COPD chronically on 2-3L home O2, HTN, HLD, HFpEF, paroxysmal AFib not on anticoagulation, hx of [place] around 5 years ago, R adnexal mass, and hypothyroidism presented to the ED from [facility] for evaluation of productive cough, generalized body ache, chest pain headache and was noted to be in atrial fibrillation with rapid ventricular rate, and admitted for further management of COPD exacerbation with afib rvr. # Paroxysmal atrial fibrillation with RVR, admitted to medical floor treated with metoprolol 12.5 mg twice daily, and Eliquis was initiated due to CHADSVACS score 5,, currently normal sinus rhythm, will change to Toprol-XL 25 mg daily.. # acute COPD exacerbation with chronic hypoxemic respiratory failure treated with IV steroids updraft treatment and azithromycin, influenza, RSV and COVID were negative, chest x-ray showed no pneumonia patient responded well to above treatment, will discharge home on 2 L of baseline supplemental oxygen and home inhalers # Hypertension with hypertensive urgency, blood pressure improved with the addition of metoprolol continue home dose of amlodipine and hydralazine. # acute metabolic encephalopathy: Likely due to mild dehydration, confusion resolved patient noted to be refusing meds and lab draws seen by Psychiatry they recommend to encourage patient to take medications , patient now calm and cooperative. # history of CHFpEF: Continue lasix #Abdominal aortic aneurism, no abdominal pain,CT showed AAA increased from 2019, now measuring 3.5 x 3.6 cm, recommend imaging studies every 2 years. #CKD stage 3 noted to have slight bump from baseline creatinine, renal function returned to baseline after 1 L of fluids . #Hypothyroidism -TSH 0.46, Continue levothyroxine. Time Attestation Discharge Coordination Time (in mins): 36 Quality: Safe Use of Opioids Does Pt have an Active Cancer Diagnosis on the Problem List?: No Quality: Stroke Does the patient have a stroke diagnosis?: No Physical Exam Vital Signs: Vital Signs: Last Vital Signs Temp 97.4 F 12/10/23 08:00 Pulse 76 12/10/23 08:00 Resp 16 12/10/23 08:00 BP 138/56 L 12/10/23 08:00 Pulse Ox 93 12/10/23 08:00 O2 Del Method Nasal Cannula 12/10/23 08:00 O2 Flow Rate 1 12/10/23 08:00 Oxygen Flow Rate 2 05/30/24 06:35 BMI result Body Mass Index 24.5 Const: Other: General awake alert ,resting comfortably in no acute distress. anicteric sclera Neck supple no JVD. CVS regular rate rhythm, no murmurs Respiratory lungs clear to auscultation, no wheeze, no crackles Gastrointestinal abdomen soft, non tender, bowel sounds audible, no guarding , no rigidity. Extremities no edema Neuro non focal , moving all 4 extremity speech clear. skin no rash psych appropriate affect. Discharge Plan Discharge Anticipated Discharge Date/Time: 12/10/23 12:33 Patient Disposition: Xfer SNF Discharge Diagnosis: Atrial fibrillation with rapid ventricular response Acute COPD exacerbation Referrals: [facility] [Outside] - 1 Week Jayjay Sood MD [Primary Care Provider] - 1 Week Discharge Medications: New metoprolol succinate [Toprol XL] 25 mg tablet extended release 24 hr 25 mg PO DAILY Qty: 30 0RF Eliquis 2.5 mg Tablet 2.5 mg PO BID Qty: 60 0RF Continued furosemide 20 mg Tablet 60 mg PO DAILY hydralazine 25 mg Tablet 25 mg PO TID Qty: 90 0RF Protocol: Hold for SBP< HOLD for SBP < : 90 aspirin 81 mg Capsule 81 mg PO DAILY ipratropium-albuterol 0.5 mg-3 mg(2.5 mg base)/3 mL solution for nebulization 3 ml inhalation Q4H PRN (Reason: Wheezing) polyethylene glycol 3350 [Miralax] 17 gram/dose powder 17 g PO DAILY Qty: 119 0RF levothyroxine 75 mcg tablet 75 mcg PO MOWEFR@0600 potassium chloride 20 mEq tablet,ER particles/crystals 20 meq PO BID Qty: 60 0RF magnesium hydroxide [Milk of Magnesia] 400 mg/5 mL Suspension 30 ml PO DAILY PRN (Reason: Constipation) bisacodyl 10 mg Suppository 10 mg NH DAILY PRN (Reason: Constipation) Fleet Enema 19-7 gram/118 mL Enema 118 ml NH DAILY PRN (Reason: Constipation) naloxone [Narcan] 4 mg/actuation [place],Non-Aerosol 4 mg INTRANASAL Q3M PRN (Reason: Opioid Overdose) Rx Instructions: spray 1 dose into ONE nostril; alternate nostrils w each dose until help arrives Coricidin HBP Max Cld(acet-DM) 650-20 mg/30 mL Liquid 5 ml PO Q4H PRN (Reason: Cough) Rx Instructions: do not exceed 5 doses per 24 hrs docusate sodium [Col-Rite] 100 mg capsule 100 mg PO DAILY famotidine 20 mg tablet 20 mg PO BID montelukast 10 mg tablet 10 mg PO BEDTIME multivitamin Tablet 1 tab PO DAILY amlodipine 5 mg tablet 5 mg PO BID acetaminophen 325 mg Tablet 650 mg PO Q8H PRN (Reason: Fever Or Pain) levothyroxine 50 mcg tablet 50 mcg PO SUTUTHSA@0600 ipratropium bromide 17 mcg/actuation HFA aerosol inhaler 2 puff inhalation QID PRN (Reason: Shortness Of Breath) gabapentin 300 mg capsule 300 mg PO BID magnesium oxide 400 mg (241.3 mg magnesium) tablet 400 mg PO BEDTIME Discharge Orders: Discharge Order (Routine); Ordered 12/10/23 Ordered By: Beto Brown Diet: Advance to usual diet Activity on Discharge: As tolerated Stand Alone Forms: Patient Portal Discharge page Print Language: Persian Care Plan Goals: Paroxysmal atrial fibrillation with rapid ventricular response resolved take Toprol-XL 25 mg daily and continue Eliquis 2.5 mg b.i.d. Continue all home medications as before Health Concerns: Chronic kidney disease COPD home O2 dependent 2 L Plan of Treatment: Follow-up with primary care physician and Cardiology call for appointment Assessment: As above
--- NOTE | 2023-12-10 12:16 | MHC.CM.PN ---
Pt has been medically cleared for DC, she will return to [facility], where she was for STR, via BLS.
== END 2023-12-10 14:59 | disposition skilled nursing facility (03) | DRG 308 ==
LOC: HO.ED 12:41 → HO.EDOVER 13:30 → HO.IMC 12-08 07:27
PROVIDERS: Physician Assistant; Student in an Organized Health Care Education/Training Program; Admitting Provider Physician Assistant; Emergency Provider Emergency Medicine; PCP Internal Medicine; Visit Provider Hospitalist
DX: I48.0 Paroxysmal atrial fibrillation (principal); G93.41 Metabolic encephalopathy; I50.32 Chronic diastolic (congestive) heart failure; J44.1 Chronic obstructive pulmonary disease with (acute) exacerbation; J96.11 Chronic respiratory failure with hypoxia; I13.0 Hypertensive heart and chronic kidney disease with heart failure and stage 1 through stage 4 chronic kidney disease, or unspecified chronic kidney disease; I16.0 Hypertensive urgency; E86.0 Dehydration; E03.9 Hypothyroidism, unspecified; Z20.822 Contact with and (suspected) exposure to COVID-19; N18.30 Chronic kidney disease, stage 3 unspecified; I71.43 Infrarenal abdominal aortic aneurysm, without rupture; Z99.81 Dependence on supplemental oxygen; Z91.041 Radiographic dye allergy status; Z91.199 Patient's noncompliance with other medical treatment and regimen due to unspecified reason; Z79.82 Long term (current) use of aspirin; Z79.890 Hormone replacement therapy; Z79.899 Other long term (current) drug therapy
CPT/HCPCS: 0241U; 36415; 70450; 71045; 80048; 80076; 82607; 82803; 83735; 83880; 84443; 84484; 85025; 93005; 94640; 99285; J0456; J2919

== ENCOUNTER → 2023-12-07 06:29 | Outpatient (BNV) | payer MEDICARE, MEDICAID, SELFPAY | PROVIDERS: Admitting Provider Physician Assistant; Emergency Provider Emergency Medicine; PCP Internal Medicine; Visit Provider Internal Medicine | DX: R07.9 Chest pain, unspecified (principal) | CPT/HCPCS: 93010 ==

== ENCOUNTER → 2023-12-07 13:16 | Outpatient (BNV) | payer MEDICARE, MEDICAID, SELFPAY | PROVIDERS: Admitting Provider Physician Assistant; Emergency Provider Emergency Medicine; PCP Internal Medicine; Visit Provider Physician Assistant | DX: I16.0 Hypertensive urgency (principal); I48.91 Unspecified atrial fibrillation | CPT/HCPCS: 99223; 99232; 99239 ==

== ENCOUNTER → 2023-12-07 13:16 | Outpatient (BNV) | payer MEDICARE, MEDICAID, SELFPAY | PROVIDERS: Admitting Provider Physician Assistant; Emergency Provider Emergency Medicine; PCP Internal Medicine; Visit Provider Registered Nurse | DX: F39 Unspecified mood [affective] disorder (principal); R45.86 Emotional lability | CPT/HCPCS: 99222 ==

== ENCOUNTER 2023-12-24 22:42 | Emergency (ER) | payer MEDICARE, MEDICAID, SELFPAY ==
--- NOTE | ~2023-12-24 | XR_ITS ---
EXAMINATION: XR WRIST, RIGHT CLINICAL INFORMATION: Trauma. Pain. COMPARISON: None available. TECHNIQUE: PA, lateral, and oblique views of the right wrist. FINDINGS: The bony structures are heterogeneous/osteopenic. There is mild radiocarpal, lateral midcarpal row and first carpometacarpal degenerative change with mild loss of joint space and subchondral sclerosis. No fracture is seen. The soft tissues are unremarkable. XR/XR wrist RT min 3V IMPRESSION: Mild degenerative changes. No fracture or dislocation. The bony structures are heterogeneous/osteopenic.
--- NOTE | ~2023-12-24 | XR_ITS ---
EXAMINATION: XR HIP, LEFT CLINICAL INFORMATION: Fall. Left hip pain. COMPARISON: None available. TECHNIQUE: Two views of the left hip. FINDINGS: The structures are osteopenic. The joint spaces are well maintained for patient age. No fracture is seen. There is lower lumbar disc degenerative change. The soft tissues are unremarkable. XR/XR hip LT w PEL1V IMPRESSION: No fracture or dislocation. Lower lumbar disc degenerative change.
--- NOTE | ~2023-12-24 | CT_ITS ---
EXAMINATION: CT HEAD WITHOUT CONTRAST CT CERVICAL SPINE WITHOUT CONTRAST CLINICAL INFORMATION: Fall. Pain. COMPARISON: 12/07/2023 TECHNIQUE: Contiguous axial imaging was performed through the head and cervical spine without intravenous administration of contrast. Sagittal and coronal reformatted images also obtained. This CT examination was performed using dose optimization techniques as appropriate, variously including the following: *Automated exposure control *Adjustment of mA and/or kV according to patient size (this includes techniques or standardized protocols for targeted exams where dose is matched to indication/reason for exam; i.e. extremities or head) *Use of iterative reconstruction technique DLP: 1200 mGy-cm FINDINGS: There is cerebral volume loss with prominence of the lateral and the third ventricles. The cortical sulci are widened appropriately. The fourth ventricle and basal cisterns are normally outlined. There is mild to moderate bilateral periventricular and central white matter diminished attenuation. There is no acute territorial defect, hemorrhage or midline shift. The extra-axial spaces are unremarkable. Calvarium/scalp: Intact. Maxillofacial sinuses and mastoids: Clear as visualized. Cervical spine: The alignment is within normal limits. There is diffuse siby-ew-tjeclror cervical disc degenerative change most pronounced at C6-C7 with loss of disc space, endplate change and posterior osteophytes associated with diffuse xpqf-ho-hgxutvkz facet osteoarthritic hypertrophic change with multilevel mild spinal canal and ajmt-cf-npelbbvg neuroforaminal narrowing. The bony structures are osteopenic. There is no fracture. The soft tissues are unremarkable. The visualized upper lung breen are clear. CT/CT cervical spine wo IV con IMPRESSION: 1. No acute intracranial process seen. 2. Mild cerebral volume loss with chronic small vessel ischemic changes. 3. No acute cervical spine fracture or dislocation seen. Degenerative disc changes most pronounced at the C6-C7 disc level with multilevel mild spinal canal and dvny-iq-srmwfavk neuroforaminal narrowing.
--- NOTE | ~2023-12-24 | CT_ITS ---
EXAMINATION: CT PELVIS WITHOUT CONTRAST CLINICAL INFORMATION: Left hip pain. Trauma. COMPARISON: 11/22/2023 TECHNIQUE: Helical scanning was performed with submillimeter collimation through the pelvis. Sagittal and coronal multiplanar 2-D reconstructions were obtained. This CT examination was performed using dose optimization techniques as appropriate, variously including the following: *Automated exposure control *Adjustment of mA and/or kV according to patient size (this includes techniques or standardized protocols for targeted exams where dose is matched to indication/reason for exam; i.e. extremities or head) *Use of iterative reconstruction technique DLP: 236.62 mGy-cm FINDINGS: PELVIS: There is a stable 9 cm right adnexal cyst. The urinary bladder is normal in appearance. There are diverticula of the sigmoid colon without diverticulitis. Small umbilical hernia is again seen. There is a stable infrarenal abdominal aortic aneurysm measuring 3.6 cm. OSSEOUS STRUCTURES: The bony structures are diffusely osteopenic. There is lower lumbar degenerative change. There is sclerosis through the mid sacrum. There is no evidence for hip fracture. CT/CT pelvis wo IV con IMPRESSION: 1. No evidence for hip fracture. 2. Stable 9 cm right adnexal cyst. 3. Stable 3.6 cm infrarenal abdominal aortic aneurysm. 4. Sclerosis along the mid sacrum may be related to insufficiency versus acute injury.
--- NOTE | ~2023-12-24 | CT_ITS ---
EXAMINATION: CT HEAD WITHOUT CONTRAST CT CERVICAL SPINE WITHOUT CONTRAST CLINICAL INFORMATION: Fall. Pain. COMPARISON: 12/07/2023 TECHNIQUE: Contiguous axial imaging was performed through the head and cervical spine without intravenous administration of contrast. Sagittal and coronal reformatted images also obtained. This CT examination was performed using dose optimization techniques as appropriate, variously including the following: *Automated exposure control *Adjustment of mA and/or kV according to patient size (this includes techniques or standardized protocols for targeted exams where dose is matched to indication/reason for exam; i.e. extremities or head) *Use of iterative reconstruction technique DLP: 1200 mGy-cm FINDINGS: There is cerebral volume loss with prominence of the lateral and the third ventricles. The cortical sulci are widened appropriately. The fourth ventricle and basal cisterns are normally outlined. There is mild to moderate bilateral periventricular and central white matter diminished attenuation. There is no acute territorial defect, hemorrhage or midline shift. The extra-axial spaces are unremarkable. Calvarium/scalp: Intact. Maxillofacial sinuses and mastoids: Clear as visualized. Cervical spine: The alignment is within normal limits. There is diffuse nyrl-kc-quecmaiq cervical disc degenerative change most pronounced at C6-C7 with loss of disc space, endplate change and posterior osteophytes associated with diffuse heun-xa-wefqvzus facet osteoarthritic hypertrophic change with multilevel mild spinal canal and quga-pm-kxscijgj neuroforaminal narrowing. The bony structures are osteopenic. There is no fracture. The soft tissues are unremarkable. The visualized upper lung breen are clear. CT/CT head/brain wo IV con IMPRESSION: 1. No acute intracranial process seen. 2. Mild cerebral volume loss with chronic small vessel ischemic changes. 3. No acute cervical spine fracture or dislocation seen. Degenerative disc changes most pronounced at the C6-C7 disc level with multilevel mild spinal canal and tllk-rd-ksasroml neuroforaminal narrowing.
--- NOTE | ~2023-12-24 | XR_ITS ---
EXAMINATION: XR ELBOW, LEFT CLINICAL INFORMATION: Fall. Pain. COMPARISON: None available. TECHNIQUE: AP, lateral, and oblique views of the left elbow. FINDINGS: The bony structures are osteopenic. No fracture is seen. The joint spaces are maintained. There is no joint effusion. XR/XR elbow LT min 3V IMPRESSION: Osteopenia. No fracture or dislocation.
[2023-12-24 22:51] VITALS: BP 132/70; PULSE 60; O2SAT 99
--- OUTSIDE RECORDS SUMMARY | 2023-12-24 23:00 | XMS_ITS | Patient Health Record ---
Author Organization [facility]ine[facility] [place] Address [address] [place] [address] Care Team Providers [employer] Professional Name Role Phone Jayjay Sood MD Primary Care Provider Jorge Luis Claire Unavailable [phone] ALLERGIES Allergen (clinical drug ingredient) Drug/Non Drug [...] Risk SNOMED Code Notes Problem Atherosclerosis of [place] artery of both lower extremities, with unspecified presence of clinical manifestation (I70.203) Active confirmed Atherosclerosis of [place] arteries of the extremities ([id number]) PLAN OF TREATMENT Pending Test Test Name Order Date [id number] NAIL, 6 OR MORE 08/28/2020 [id number] SKIN LESIONS, 2 TO 4 08/28/19 21 Insurance Providers Payer Name Payer Address Payer Phone Subscriber Number Group Number Insured Name Patient Relationship to Insured Coverage Start Date Coverage End Date Medicare National [employer] [address] [place] [address] [id number] Vane Lim Self - patient is the insured MEDICAL (GENERAL) HISTORY Medical History History ICD Code Arthritis asthma Back,Hip,and Knee pain Cancer Headaches/Migraines High blood pressure Lung disease Numbness Poor circulation Measles Mumps Chicken pox Surgical History Surgery Date(Month/Year) tonsillectomy and adenoidectomy appendectomy hysterectomy
[2023-12-24 23:05] VITALS: BP 125/71; PULSE 71; RESP 20; TEMP 36.7; O2SAT 96; BMI 19.5
[2023-12-25] MEDS: Morphine Sulfate 4 MG/ML CARTRIDGE IM (00:21)
[2023-12-25] MEDS: Ondansetron ODT 4 MG TAB.RAPDIS TRANSLINGU (00:21)
--- NOTE | 2023-12-25 00:27 | ED_ITS ---
HPI - General Adult General Chief complaint: Fall Stated complaint: L sided hip pain from fall, -LOC, -HS, -Thinners Time Seen by Provider: 12/24/23 23:15 Source: patient and RN notes reviewed Mode of arrival: EMS Limitations: no limitations History of Present Illness ED Provider: Anahy HPI narrative: 88-year-old female with past medical history significant for COPD chronically on 2-3 L home O2, hypertension, hyperlipidemia, heart failure, paroxysmal AFib not anticoagulated, coronary artery disease, chronic kidney disease, history ovarian torsion presents for evaluation of a fall and left hip pain. Patient presents from [facility]. She reports that she was trying to get into her wheelchair prior to arrival. She states the wheelchair was not locked and she fell to the ground as the wheelchair slipped behind her She reports landing ?straight on my buttocks. ? She complains of mostly left hip pain and buttocks pain She also has pain to her left elbow and right wrist. She complains of 10/10 pain. She does not believe she hit head but does complain of chronic headaches that are unchanged from baseline Related Data Home Medications ?Medication ?Instructions ?Recorded ?Confirmed gabapentin 300 mg capsule 300 mg PO BID Pain 07/13/20 12/07/23 ipratropium bromide 17 2 puff inhalation QID PRN 07/13/20 12/07/23 mcg/actuation HFA aerosol inhaler Shortness Of Breath levothyroxine 50 mcg tablet 50 mcg PO SUTUTHSA@0600 07/13/20 12/07/23 magnesium oxide 400 mg (241.3 mg 400 mg PO BEDTIME 07/13/20 12/07/23 magnesium) tablet famotidine 20 mg tablet 20 mg PO BID 12/21/22 12/07/23 montelukast 10 mg tablet 10 mg PO BEDTIME 12/21/22 12/07/23 multivitamin 1 tab PO DAILY 12/21/22 12/07/23 amlodipine 5 mg tablet 5 mg PO BID 09/12/23 12/07/23 furosemide 20 mg tablet 60 mg PO DAILY 09/28/23 12/07/23 aspirin 81 mg capsule 81 mg PO DAILY 10/27/23 12/07/23 ipratropium 0.5 mg-albuterol 3 mg 3 ml inhalation Q4H PRN Wheezing 10/27/23 12/07/23 (2.5 mg base)/3 mL nebulization soln acetaminophen 325 mg tablet 650 mg PO Q8H PRN Fever Or Pain 11/06/23 12/07/23 levothyroxine 75 mcg tablet 75 mcg PO MOWEFR@0600 11/22/23 12/07/23 acetaminophen 650 mg-DM 20 mg/30 5 ml PO Q4H PRN Cough 12/07/23 12/07/23 mL oral liquid (Coricidin HBP Max [place]my[place]-Uts-Zqp(acet-DM)) bisacodyl 10 mg rectal suppository 10 mg OH DAILY PRN Constipation 12/07/23 12/07/23 docusate sodium 100 mg capsule 100 mg PO DAILY Constipation 12/07/23 12/07/23 (Col-Rite) magnesium hydroxide 400 mg/5 mL 30 ml PO DAILY PRN Constipation 12/07/23 12/07/23 oral suspension (Milk of Magnesia) naloxone 4 mg/actuation nasal 4 mg intranasal Q3M PRN Opioid 12/07/23 12/07/23 spray (Narcan) Overdose sodium phosphates 19 gram-7 118 ml OH DAILY PRN Constipation 12/07/23 12/07/23 gram/118 mL enema (Fleet Enema) Previous Rx's ?Medication ?Instructions ?Recorded hydralazine 25 mg tablet 25 mg PO TID #90 tabs 10/05/23 polyethylene glycol 3350 17 17 g PO DAILY #119 grams 10/29/23 gram/dose oral powder (Miralax) potassium chloride 20 mEq 20 meq PO BID #60 tabs 12/03/23 tablet,extended release(part/cryst) apixaban 2.5 mg tablet (Eliquis) 2.5 mg PO BID #60 tabs 12/10/23 metoprolol succinate 25 mg 25 mg PO DAILY #30 tabs 12/10/23 tablet,extended release 24 hr (Toprol XL) Allergies Allergy/AdvReac Type Severity Reaction Status Date / Time adhesive tape [Adhesive Tape] Allergy Unknown RASH Verified 12/24/23 23:06 codeine [Codeine] Allergy Unknown SWELLING Verified 12/24/23 23:06 Iodinated Contrast Media Allergy Unknown UNKNOWN Verified 12/24/23 23:06 [IV Dye, Iodine Containing] iodine [Iodine] Allergy Unknown UNKNOWN Verified 12/24/23 23:06 oxycodone [Percocet] Allergy Unknown unknown Verified 12/24/23 23:06 papaya [Papaya] Allergy Unknown HIVES Verified 12/24/23 23:06 pineapple [Pineapple] Allergy Unknown HIVES Verified 12/24/23 23:06 strawberry [[place]] Allergy Unknown HIVES Verified 12/24/23 23:06 Codeine Phosphate Allergy Unknown unknown Uncoded 12/24/23 23:06 Novocain Allergy Unknown unknown Uncoded 12/24/23 23:06 From Vicodin AdvReac Unknown NAUSEA & Uncoded 12/24/23 23:06 VOMITING Review of Systems Constitutional: Constitutional: Denies body ache(s), Denies chills, Denies fever(s) and Reports headache(s) Eyes: Eyes: Denies blurry vision ENT: Denies vertigo, Denies dizziness and Reports headache(s) Cardiovascular: Cardiovascular: Denies chest pain and Denies dyspnea Respiratory: Respiratory: Denies cough and Denies dyspnea Gastrointestinal: Gastrointestinal: Denies abdominal pain Musculoskeletal: Musculoskeletal: Denies back pain, Reports arthralgias, Reports joint swelling and Reports limited range of motion Integumentary/Breasts: Skin/Breast: Denies rash Neurologic: Denies vertigo, Denies dizziness and Reports headache(s) [facility] Past Medical History Medical History Adnexal mass Abdominal aortic aneurysm CKD (chronic kidney disease) stage 3, GFR 30-59 ml/min Myocardial infarction Hypothyroidism Hyperlipidemia COPD (chronic obstructive pulmonary disease) HTN (hypertension) PAF (paroxysmal atrial fibrillation) Family History Family History Father History of heart disease Mother History of heart disease Social History Social History Household Members: None Housing: Prison Do you presently have visiting nurse or other home services: Yes Alcohol intake: never Comment: sitter present Patient Tobacco Use Status: Never used Tobacco Advance Directives: Yes Advance Directives on File: Yes Advance Directives Date on File: 10/16/23 Do you have a plan to hurt others: No Plan service: No Current occupational status: retired Physical Exam ED Vital Signs: Vital Signs - 24 hr 12/24/23 23:05 12/25/23 03:14 Temperature 98.0 F Pulse Rate 71 104 H Respiratory Rate 20 16 Blood Pressure 125/71 121/73 Pulse Oximetry 96 97 Oxygen Delivery Method Nasal Cannula Room Air BMI result Body Mass Index 19.5 Const General: healthy appearing, comfortable, no acute distress, alert and awake Nutritional Appearance: well nourished Orientation/consciousness: patient oriented x3 HENMT Head: Yes normocephalic and Yes atraumatic Eyes Eyelids: Yes eyelids normal Conjunctivae: conjunctivae normal Sclerae: sclerae normal Corneas: corneas normal Pupils: Equal, round and reactive pupils present EOM: EOMs intact bilaterally Neck Neck: Yes full ROM Resp Effort & Inspection: normal respiratory effort, able to speak in complete sentences and not labored GI Inspection: No distended Palpation (GI): Soft to palpation, not firm, nontender, no guarding and not rigid Skin General skin exam: elasticity normal Neuro General: patient oriented x3 Cranial nerves: Yes Equal, round and reactive pupils present and Yes Bilaterally intact EOM present Cognition (Neuro): normal cognition Extrem Other: Patient has tenderness to the left hip without obvious deformity. She has both lower extremities flexed at the hip and is unwilling to attempt to straighten them. No tenderness with manipulation of the knees and ankles bilaterally. There is no obvious deformity to the upper extremities bilaterally and she has full range of motion of the at the shoulders, elbows, wrists. Course Reevaluation(s) Reevaluation #1: Given the patient's amount of pain with negative left hip fracture a CT scan of the pelvis was ordered. Patient is signed out to the overnight team pending remainder of imaging and disposition Time: 00:34 Medications Administered Discontinued Medications Generic Name Dose Route Start Last Admin Trade Name Freq PRN Reason Stop Dose Admin Morphine Sulfate 4 mg 12/25/23 00:12 12/25/23 00:21 Morphine Sulfate 4 Mg/Ml Cartridge IM 12/25/23 00:13 4 mg ONCE ONE Administration Protocol Ondansetron HCl 4 mg 12/25/23 00:12 12/25/23 00:21 Ondansetron Odt 4 Mg Tab.Rapdis TRANSLINGU 12/25/23 00:13 4 mg ONCE ONE Administration Medical Decision Making Medical Decision Making MDM Narrative: 88-year-old female presents for evaluation after a fall. This was a nonsyncopal fall while attempting to get into her wheelchair to go to the bathroom. Plan for x-rays, CT imaging of brain and C-spine. CT scan pelvis cervical spine and head were negative will discharge patient back to skilled nursing Differential Diagnosis Differential Diagnoses: The differential diagnosis associated with the presentation includes Mechanical fall Contusion Hip fracture Pelvic fracture Intracranial hemorrhage Cervical fracture Discharge Plan Discharge Clinical Impression: Acute pain of left hip Patient Disposition: Xfer [facility] Transfer Details: BACK TO [facility] CT scan of the pelvis negative for fracture CT scan of the head and C-spine also normal Instructions: Hip Pain (ED) Additional Instructions: Tylenol/Motrin for pain No hip fracture was seen Prescriptions: No Action furosemide 20 mg Tablet 60 mg PO DAILY hydralazine 25 mg Tablet 25 mg PO TID Qty: 90 0RF Protocol: Hold for SBP< HOLD for SBP < : 90 aspirin 81 mg Capsule 81 mg PO DAILY ipratropium-albuterol 0.5 mg-3 mg(2.5 mg base)/3 mL solution for nebulization 3 ml inhalation Q4H PRN (Reason: Wheezing) polyethylene glycol 3350 [Miralax] 17 gram/dose powder 17 g PO DAILY Qty: 119 0RF levothyroxine 75 mcg tablet 75 mcg PO MOWEFR@0600 potassium chloride 20 mEq tablet,ER particles/crystals 20 meq PO BID Qty: 60 0RF magnesium hydroxide [Milk of Magnesia] 400 mg/5 mL Suspension 30 ml PO DAILY PRN (Reason: Constipation) bisacodyl 10 mg Suppository 10 mg OH DAILY PRN (Reason: Constipation) Fleet Enema 19-7 gram/118 mL Enema 118 ml OH DAILY PRN (Reason: Constipation) naloxone [Narcan] 4 mg/actuation [place],Non-Aerosol 4 mg INTRANASAL Q3M PRN (Reason: Opioid Overdose) Rx Instructions: spray 1 dose into ONE nostril; alternate nostrils w each dose until help arrives Coricidin HBP Max Cld(acet-DM) 650-20 mg/30 mL Liquid 5 ml PO Q4H PRN (Reason: Cough) Rx Instructions: do not exceed 5 doses per 24 hrs docusate sodium [Col-Rite] 100 mg capsule 100 mg PO DAILY Eliquis 2.5 mg Tablet 2.5 mg PO BID Qty: 60 0RF metoprolol succinate [Toprol XL] 25 mg tablet extended release 24 hr 25 mg PO DAILY Qty: 30 0RF famotidine 20 mg tablet 20 mg PO BID montelukast 10 mg tablet 10 mg PO BEDTIME multivitamin Tablet 1 tab PO DAILY amlodipine 5 mg tablet 5 mg PO BID acetaminophen 325 mg Tablet 650 mg PO Q8H PRN (Reason: Fever Or Pain) levothyroxine 50 mcg tablet 50 mcg PO SUTUTHSA@0600 ipratropium bromide 17 mcg/actuation HFA aerosol inhaler 2 puff inhalation QID PRN (Reason: Shortness Of Breath) gabapentin 300 mg capsule 300 mg PO BID magnesium oxide 400 mg (241.3 mg magnesium) tablet 400 mg PO BEDTIME Print Language: Pashto
[2023-12-25 03:14] VITALS: BP 121/73; PULSE 104; RESP 16; O2SAT 97
[2023-12-25 05:34] VITALS: BP 132/76; PULSE 116; RESP 18; TEMP 36.8; O2SAT 97
== END 2023-12-25 05:46 | disposition skilled nursing facility (03) ==
PROVIDERS: Emergency Provider Internal Medicine
DX: M25.552 Pain in left hip (principal); M25.531 Pain in right wrist; I48.0 Paroxysmal atrial fibrillation; I25.10 Atherosclerotic heart disease of native coronary artery without angina pectoris; I12.9 Hypertensive chronic kidney disease with stage 1 through stage 4 chronic kidney disease, or unspecified chronic kidney disease; N18.30 Chronic kidney disease, stage 3 unspecified; J44.9 Chronic obstructive pulmonary disease, unspecified; Z99.81 Dependence on supplemental oxygen
CPT/HCPCS: 70450; 72125; 72192; 73080; 73110; 73502; 96372; 99283; 99284; J2270

== ENCOUNTER 2024-03-05 14:58 | Inpatient (IN) | payer MEDICARE, MEDICAID, SELFPAY ==
--- NOTE | ~2024-03-05 | CT_ITS ---
EXAMINATION: CT ABDOMEN AND PELVIS WITHOUT CONTRAST CLINICAL INFORMATION: Diffuse abdominal pain COMPARISON: 12/25/2023, 11/22/2023 TECHNIQUE: Multidetector volumetric imaging was performed from the superior aspect of the liver through the pubic symphysis. Sagittal and coronal reformatted images were obtained on the technologist's workstation. This CT examination was performed using dose optimization techniques as appropriate, variously including the following: *Automated exposure control *Adjustment of mA and/or kV according to patient size (this includes techniques or standardized protocols for targeted exams where dose is matched to indication/reason for exam; i.e. extremities or head) *Use of iterative reconstruction technique DLP: 394 mGy-cm FINDINGS: LUNG BASES: Left upper lobe lingular opacity may reflect focal atelectasis, aspiration, or infection. Right anterior middle lobe opacity may reflect atelectasis or infection. ABDOMINAL AND PELVIC WALL: Ventral fat-containing umbilical hernia. LIVER AND BILIARY TREE: Unremarkable. GALLBLADDER: Gallbladder is not visualized and may be surgically absent. PANCREAS: Unremarkable. SPLEEN: Unremarkable. ADRENAL GLANDS: Unremarkable. KIDNEYS AND URETERS: Unremarkable. GASTROINTESTINAL TRACT: Large hiatal hernia. Diverticulosis, no CT findings of diverticulitis. VASCULAR: Aneurysmal dilation of the infrarenal abdominal aorta measuring 3.7 x 3.5 cm. LYMPH NODES/PERITONEUM: No lymphadenopathy. FREE FLUID: None. BLADDER: Unremarkable. PELVIC VISCERA: Redemonstration of 9 cm right adnexal cyst. OSSEOUS STRUCTURES: Degenerative changes of the thoracolumbar spine. Diffuse osteopenia limits evaluation. CT/CT abdomen pelvis wo IV con IMPRESSION: * Large hiatal hernia. * Left upper lobe lingular opacity may reflect focal atelectasis, aspiration, or infection. Right anterior middle lobe opacity may reflect atelectasis or infection. * Aneurysmal dilation of the infrarenal abdominal aorta measuring up to 3.7 cm. Based on published guidelines in J Am Asya Radiol 2013; 10(10):789-794 and J Vasc Surg. 2018; 67:2-77, the recommendation for an abdominal aortic aneurysm with diameter 3.5-3.9 cm is follow-up every 2 years. * Redemonstration of 9 cm right adnexal cyst. Electronically signed by: Cecilia Siegel MD 03/05/2024 06:22 PM EDT RP
--- NOTE | ~2024-03-05 | CT_ITS ---
EXAMINATION: CT CHEST WITHOUT CONTRAST CLINICAL INFORMATION: Tachycardia, altered mental status, evaluate for pneumonia COMPARISON: 11/22/2023 TECHNIQUE: Multidetector volumetric CT imaging of the chest was done. Axial MIP volume rendering provided. Sagittal and coronal reformatted images were obtained. This CT examination was performed using dose optimization techniques as appropriate, variously including the following: *Automated exposure control *Adjustment of mA and/or kV according to patient size (this includes techniques or standardized protocols for targeted exams where dose is matched to indication/reason for exam; i.e. extremities or head) *Use of iterative reconstruction technique DLP: 855 mGy-cm FINDINGS: The exam is significantly limited by respiratory motion artifact LUNGS: Motion artifact limits evaluation. There is severe emphysema. There is diffuse bronchial wall thickening. There are new patchy and nodular areas of consolidation in the medial lung apices. A spiculated nodular opacity in the right lung apex medially measures 1.4 x 1.4 cm, this was not seen on the 11/22/2023 exam suggesting this represents focal infectious/inflammatory process. Patchy linear consolidations along the major fissures in the upper lobes bilaterally. Areas of streaky opacity with focal nodular consolidation in the right lower lobe and in the lingula. MEDIASTINUM: Normal heart size. Aortic valve and mitral valve calcifications. Atherosclerotic calcification in the thoracic aorta. Some low volume mediastinal lymph nodes. CORONARY ARTERY CALCIFICATION: Three-vessel coronary artery disease. PLEURA: There is no pleural effusion. No pleural mass or thickening. AXILLA: No lymphadenopathy. UPPER ABDOMEN: Moderate to large hiatal hernia. See dedicated abdominal exam from same day. Exaggerated kyphotic curvature in the thoracic spine OSSEOUS STRUCTURES: Chronic compression deformity in T11 and L3 all right-sided rib fractures. CT/CT chest wo IV con IMPRESSION: 1. The exam is significantly limited by respiratory motion artifact. 2. There are new patchy and nodular areas of consolidation in the medial lung apices. A spiculated nodular opacity in the right lung apex medially measures 1.4 x 1.4 cm, this was not seen on the 11/22/2023 exam suggesting this represents focal infectious/inflammatory process. Additional areas of streaky opacity with focal nodular consolidation in the right lower lobe and in the lingula. 3. Severe emphysema. 4. Atherosclerotic disease including three-vessel coronary artery disease. 5. Moderate to large hiatal hernia. Fleischner guidelines were followed. Electronically signed by: Wood Cervantes MD 03/05/2024 11:39 PM EDT RP
--- NOTE | ~2024-03-05 | CT_ITS ---
EXAMINATION: CT HEAD WITHOUT IV CONTRAST CLINICAL INFORMATION: on thinners hallucinations eval for ICH COMPARISON: CT head without contrast 12/25/2023 TECHNIQUE: Contiguous axial imaging was performed from the skull base to vertex without intravenous contrast. Sagittal and coronal reformatted images were obtained. This CT examination was performed using dose optimization techniques as appropriate, variously including the following: * Automated exposure control * Adjustment of mA and/or kV according to patient size (this includes techniques or standardized protocols for targeted exams where dose is matched to indication/reason for exam; i.e. extremities or head) Use of iterative reconstruction technique DLP: 855 mGy-cm FINDINGS: No acute osseous or soft tissue abnormality. The mastoid air cells and visualized portions of the paranasal sinuses are well aerated. There is no evidence of acute intracranial hemorrhage or territorial infarction. No abnormal mass effect or midline shift is seen. Hansen to white matter differentiation is well preserved. No extra-axial fluid collections are identified. No hydrocephalus. Proportional prominence of the ventricles and sulcal spaces related to volume loss. Patchy periventricular and deep white matter hypoattenuation is consistent with moderate small vessel ischemic changes. CT/CT head/brain wo IV con IMPRESSION: No acute intracranial abnormality including hemorrhage, mass effect, hydrocephalus, or acute territorial edematous infarction. Electronically signed by: Saul Trujillo MD 03/05/2024 10:11 PM EDT
--- NOTE | 2024-03-05 15:08 | ECG_ITS ---
Test Reason : ams, abd pain Blood Pressure : / mmHG Vent. Rate : 128 BPM Atrial Rate : 129 BPM P-R Int : 184 ms QRS Dur : 060 ms QT Int : 298 ms P-R-T Axes : 064 004 077 degrees QTc Int : 435 ms Sinus tachycardia Low voltage QRS Cannot rule out Anteroseptal infarct (cited on or before 28-SEP-2023) Abnormal ECG When compared with ECG of 07-DEC-2023 06:29, Sinus rhythm has replaced Atrial fibrillation Questionable change in initial forces of Anterior leads Nonspecific T wave abnormality, improved in Lateral leads Referred By: Opal Manuel Electronically Signed By:FLAKITA WILSON
[2024-03-05 15:11] VITALS: BP 142/92; PULSE 130; RESP 20; TEMP 36.7; O2SAT 92
--- NOTE | 2024-03-05 15:13 | ED.GENADULT ---
HPI - General Adult General Chief complaint: Altered Mental Status Stated complaint: HALLUCINATING FROM SNF PER EMS Time Seen by Provider: 03/05/24 15:02 Source: patient and EMS Mode of arrival: EMS Limitations: altered mental status History of Present Illness ED Provider: Dr. Opal Manuel HPI narrative: Patient comes to the emergency room from [facility]. According to EMS, the staff reported that she is hallucinating, seeing her . Patient states that she is complaining of diffuse abdominal pain and nausea without vomiting, denies diarrhea, no fever or chills. Related Data Home Medications ?Medication ?Instructions ?Recorded ?Confirmed gabapentin 300 mg capsule 300 mg PO BID Pain 07/13/20 12/07/23 ipratropium bromide 17 2 puff inhalation QID PRN 07/13/20 12/07/23 mcg/actuation HFA aerosol inhaler Shortness Of Breath levothyroxine 50 mcg tablet 50 mcg PO SUTUTHSA@0600 07/13/20 12/07/23 magnesium oxide 400 mg (241.3 mg 400 mg PO BEDTIME 07/13/20 12/07/23 magnesium) tablet famotidine 20 mg tablet 20 mg PO BID 12/21/22 12/07/23 montelukast 10 mg tablet 10 mg PO BEDTIME 12/21/22 12/07/23 multivitamin 1 tab PO DAILY 12/21/22 12/07/23 amlodipine 5 mg tablet 5 mg PO BID 09/12/23 12/07/23 furosemide 20 mg tablet 60 mg PO DAILY 09/28/23 12/07/23 aspirin 81 mg capsule 81 mg PO DAILY 10/27/23 12/07/23 ipratropium 0.5 mg-albuterol 3 mg 3 ml inhalation Q4H PRN Wheezing 10/27/23 12/07/23 (2.5 mg base)/3 mL nebulization soln acetaminophen 325 mg tablet 650 mg PO Q8H PRN Fever Or Pain 11/06/23 12/07/23 levothyroxine 75 mcg tablet 75 mcg PO MOWEFR@0600 11/22/23 12/07/23 acetaminophen 650 mg-DM 20 mg/30 5 ml PO Q4H PRN Cough 12/07/23 12/07/23 mL oral liquid (Coricidin HBP Max Ufss-Gah-Vcm(acet-DM)) bisacodyl 10 mg rectal suppository 10 mg NV DAILY PRN Constipation 12/07/23 12/07/23 docusate sodium 100 mg capsule 100 mg PO DAILY Constipation 12/07/23 12/07/23 (Col-Rite) magnesium hydroxide 400 mg/5 mL 30 ml PO DAILY PRN Constipation 12/07/23 12/07/23 oral suspension (Milk of Magnesia) naloxone 4 mg/actuation nasal 4 mg intranasal Q3M PRN Opioid 12/07/23 12/07/23 spray (Narcan) Overdose sodium phosphates 19 gram-7 118 ml NV DAILY PRN Constipation 12/07/23 12/07/23 gram/118 mL enema (Fleet Enema) Previous Rx's ?Medication ?Instructions ?Recorded hydralazine 25 mg tablet 25 mg PO TID #90 tabs 10/05/23 polyethylene glycol 3350 17 17 g PO DAILY #119 grams 10/29/23 gram/dose oral powder (Miralax) potassium chloride 20 mEq 20 meq PO BID #60 tabs 12/03/23 tablet,extended release(part/cryst) apixaban 2.5 mg tablet (Eliquis) 2.5 mg PO BID #60 tabs 12/10/23 metoprolol succinate 25 mg 25 mg PO DAILY #30 tabs 12/10/23 tablet,extended release 24 hr (Toprol XL) Allergies Allergy/AdvReac Type Severity Reaction Status Date / Time adhesive tape [Adhesive Tape] Allergy Unknown RASH Verified 03/05/24 15:32 codeine [Codeine] Allergy Unknown SWELLING Verified 03/05/24 15:32 Iodinated Contrast Media Allergy Unknown UNKNOWN Verified 03/05/24 15:32 [IV Dye, Iodine Containing] iodine [Iodine] Allergy Unknown UNKNOWN Verified 03/05/24 15:32 oxycodone [Percocet] Allergy Unknown unknown Verified 03/05/24 15:32 papaya [Papaya] Allergy Unknown HIVES Verified 03/05/24 15:32 pineapple [Pineapple] Allergy Unknown HIVES Verified 03/05/24 15:32 strawberry [[place]] Allergy Unknown HIVES Verified 03/05/24 15:32 Codeine Phosphate Allergy Unknown unknown Uncoded 03/05/24 15:32 Novocain Allergy Unknown unknown Uncoded 03/05/24 15:32 From Vicodin AdvReac Unknown NAUSEA & Uncoded 03/05/24 15:32 VOMITING Review of Systems Review of Systems: Constitutional : No Weight loss, No Fever, No Chills, No Night Sweats, No Fatigue, No Malaise ENT/Mouth : No Hearing loss, No Ear Pain, No Nasal Congestion, No Sinus Pain, No Hoarseness, No sore throat, No Rhinorrhea, No Swallowing Difficulty Eyes: No Eye Pain, No Swelling, No Redness, No Foreign Body, No Discharge, No Vision Changes Cardiovascular : No Chest Pain, No SOB, No Dyspnea on Exertion, No Orthopnea, No Edema, No Palpitations Respiratory : No Cough, No Sputum, No Wheezing, No Smoke Exposure, No Dyspnea Gastrointestinal : Complaining of nausea, no vomiting or diarrhea, complaining of diffuse abdominal discomfort Genitourinary : no irregular bleeding, No Dysuria, No Urinary Frequency, No Hematuria, No Urinary Incontinence, No Urgency, No Flank Pain, No Urinary Flow Changes, No Hesitancy Musculoskeletal : No joint pain, No Myalgias, No Joint Swelling Skin : No Skin Lesions, No rash Neuro : No Weakness, No Numbness, No Paresthesias, No Loss of Consciousness, No Dizziness, No Headache Psych : Per staff, patient has been hallucinating, talking to her Heme/Lymph: No Bruising, No Bleeding,No Lymphadenopathy Endocrine : No Polyuria, No Polydipsia, No Temperature Intolerance PMFSH Past Medical History Medical History Adnexal mass Abdominal aortic aneurysm CKD (chronic kidney disease) stage 3, GFR 30-59 ml/min Myocardial infarction Hypothyroidism Hyperlipidemia COPD (chronic obstructive pulmonary disease) HTN (hypertension) PAF (paroxysmal atrial fibrillation) Family History Family History Father History of heart disease Mother History of heart disease Social History Social History Household Members: None Housing: [facility] Do you presently have visiting nurse or other home services: Yes Alcohol intake: never Comment: sitter present Patient Tobacco Use Status: Never used Tobacco Advance Directives: Yes Advance Directives on File: Yes Advance Directives Date on File: 10/16/23 Do you have a plan to hurt others: No Plan service: No Current occupational status: retired Physical Exam ED Vital Signs: Vital Signs - 24 hr 03/05/24 15:11 03/05/24 18:36 03/05/24 19:57 Temperature 98.0 F 98.7 F Pulse Rate 130 H 124 H 120 H Respiratory Rate 20 19 17 Blood Pressure 142/92 H 112/58 L 96/78 Pulse Oximetry 92 94 93 Oxygen Delivery Method Nasal Cannula Nasal Cannula Nasal Cannula Oxygen Flow Rate 2 2 2 BMI result Body Mass Index 19.4 Const Other: Appearance: Alert. No acute distress. Eyes: Pupils equal, round and reactive to light. ENT: Pharynx normal. Neck: Normal inspection. Neck supple. No lymph nodes noted. No crepitus CVS: Normal heart rate and rhythm. Pulses normal. Normal S1 and S2 Respiratory: No respiratory distress. Breath sounds normal. No Wheezing. No rales Abdomen: Soft and nontender. No rigidity. No distention. Skin: Skin warm and dry. Normal skin color. Normal skin turgor. Extremities: No lower extremity edema. No Lacerations. No Rash Neuro: no motor deficit. No sensory deficit. Moving all extremities. No slurred speech. CN 2 through 12 grossly intact Psych: calm, cooperative, normal affect Course Course Course Narrative: All of patient's labs pending Medical Decision Making Medical Decision Making [facility] Narrative: My interpretation of labs, normal hematology, normal chemistry, decreased albumin. Urinalysis pending, serology negative COVID -urinalysis pending -my interpretation of ekg: a fib w RVR, HR 128, QTc 435 -on the monitor, HR ranging between 100 to 130w, given one dose of digoxin iv, BP 96/78 -multiple attempts have been made to get urine from the patient w/o having to do a straight cath, urine pending CXR: possible pneumonia. However, pt does not have any URI sympotms, no fever , normal wbc -depending on urine analysis, pt may need antiobiotics and/or CARE team consult -sign out given to my colleague Dr. Overton Differential Diagnosis Differential Diagnoses: The differential diagnosis associated with the presentation includes (UTI, dementia, delusional) Admission/Observation Consideration of admission/observation: Escalation of care including admission/observation considered (Given patient's age and chief complaints, admission/observation has been considered) Lab Data [facility] Lab Attestation statement: I reviewed the patient's lab results. 03/05/24 15:35 03/05/24 15:35 Labs: Lab Results 03/05/24 03/05/24 Range/Units 15:35 15:43 WBC 8.8 (4.8-10.8) X10*3/uL RBC 3.83 L (4.20-5.50) X10*6/uL Hgb 11.7 L (12.0-16.0) g/dl Hct 35.0 L (37.0-47.0) % MCV 91.4 (80.0-98.0) fL MCH 30.5 (27.0-33.0) pg MCHC 33.4 (31.0-35.0) g/dl RDW 13.4 (11.0-16.0) % Plt Count 381 D (160-400) X10*3/uL MPV 9.4 (9.4-12.3) fL Immature Gran % (Auto) 0.6 H (0.0-0.4) % Neut % (Auto) 68.7 (45-73) % Lymph % (Auto) 13.8 L (20-40) % [place] % (Auto) 11.7 H (2-11) % Eos % (Auto) 4.5 H (0-4) % Baso % (Auto) 0.7 (0-2) % Lymph # (Auto) 1.2 (1.2-4.9) X10*3/uL [place] # (Auto) 1.0 (0.1-1.2) X10*3/uL Eos # (Auto) 0.4 (0.0-0.4) X10*3/uL Baso # (Auto) 0.1 (0.0-0.2) X10*3/uL Abs Immat Gran (auto) 0.05 H (0.00-0.03) X10*3/uL Absolute Neuts (auto) 6.1 (2.0-8.3) x10*3/uL Absolute Nucleated RBC 0.000 (0.0-0.012) X10*3/uL Nucleated RBC % (auto) 0.0 (0.0-0.2) /100WBC Sodium 137 (135-145) mmol/L Potassium 3.6 (3.3-5.1) mmol/L Chloride 96 (96-108) mmol/L Carbon Dioxide 30 H (22-29) mmol/L Anion Gap 15 (12-20) BUN 26 H (9-16) mg/dL Creatinine 1.29 (0.5-1.4) mg/dL Estim Creat Clear Calc 26.7 Estimated GFR 39 Random Glucose 105 (60-115) mg/dL Calcium 9.4 D (8.4-10.2) mg/dL Magnesium 2.2 (1.6-2.6) mg/dL Total Bilirubin 0.3 (0.0-1.0) mg/dL Direct Bilirubin 0.2 (0.0-0.5) mg/dL AST 27 (5-31) U/L ALT 11 (0-31) U/L Alkaline Phosphatase 140 H (39-117) U/L Troponin I High Sens 7.7 D (<3.5-17.0) ng/L Total Protein 7.1 (6.5-8.0) g/dL Albumin 2.6 L (3.5-5.0) g/dL Lipase 32 (8-78) U/L COVID-19 (GABE) Negative (Negative) COVID-19 Clin Com See Note Independent Interpretation I performed an independent interpretation of an: EKG Radiology Impression Discussion of test interpretation with radiology: I have reviewed the radiologist's reading. Critical Care Time Critical Care Time Critical Care Time: Yes Total Critical Care Time: 60 Attestation: I have personally provided critical care time. Time includes review of lab data, radiology results, discussion with consultants, and monitoring for potential decompensation. Intervention performed as documented. Discharge Plan Discharge Clinical Impression: Atrial fibrillation with RVR, Hallucination Patient Disposition: Still a Patient Prescriptions: No Action furosemide 20 mg Tablet 60 mg PO DAILY hydralazine 25 mg Tablet 25 mg PO TID Qty: 90 0RF Protocol: Hold for SBP< HOLD for SBP < : 90 aspirin 81 mg Capsule 81 mg PO DAILY ipratropium-albuterol 0.5 mg-3 mg(2.5 mg base)/3 mL solution for nebulization 3 ml inhalation Q4H PRN (Reason: Wheezing) polyethylene glycol 3350 [Miralax] 17 gram/dose powder 17 g PO DAILY Qty: 119 0RF levothyroxine 75 mcg tablet 75 mcg PO MOWEFR@0600 potassium chloride 20 mEq tablet,ER particles/crystals 20 meq PO BID Qty: 60 0RF magnesium hydroxide [Milk of Magnesia] 400 mg/5 mL Suspension 30 ml PO DAILY PRN (Reason: Constipation) bisacodyl 10 mg Suppository 10 mg NV DAILY PRN (Reason: Constipation) Fleet Enema 19-7 gram/118 mL Enema 118 ml NV DAILY PRN (Reason: Constipation) naloxone [Narcan] 4 mg/actuation [place],Non-Aerosol 4 mg INTRANASAL Q3M PRN (Reason: Opioid Overdose) Rx Instructions: spray 1 dose into ONE nostril; alternate nostrils w each dose until help arrives Coricidin HBP Max Cld(acet-DM) 650-20 mg/30 mL Liquid 5 ml PO Q4H PRN (Reason: Cough) Rx Instructions: do not exceed 5 doses per 24 hrs docusate sodium [Col-Rite] 100 mg capsule 100 mg PO DAILY Eliquis 2.5 mg Tablet 2.5 mg PO BID Qty: 60 0RF metoprolol succinate [Toprol XL] 25 mg tablet extended release 24 hr 25 mg PO DAILY Qty: 30 0RF famotidine 20 mg tablet 20 mg PO BID montelukast 10 mg tablet 10 mg PO BEDTIME multivitamin Tablet 1 tab PO DAILY amlodipine 5 mg tablet 5 mg PO BID acetaminophen 325 mg Tablet 650 mg PO Q8H PRN (Reason: Fever Or Pain) levothyroxine 50 mcg tablet 50 mcg PO SUTUTHSA@0600 ipratropium bromide 17 mcg/actuation HFA aerosol inhaler 2 puff inhalation QID PRN (Reason: Shortness Of Breath) gabapentin 300 mg capsule 300 mg PO BID magnesium oxide 400 mg (241.3 mg magnesium) tablet 400 mg PO BEDTIME Print Language: Amharic
[2024-03-05 15:30] VITALS: BP 159/96; PULSE 105; O2SAT 96; BMI 19.4
[2024-03-05 15:40] LABS: MANUAL DIFF FLAG NO
[2024-03-05 15:41] LABS: Basophils Absolute Auto 0.1 X10*3/uL (0.0-0.2); Basophils Percent Auto 0.7 % (0-2); Eosinophils Absolute Auto 0.4 X10*3/uL (0.0-0.4); Eosinophils Percent Auto 4.5 % (0-4); Hemoglobin 11.7 g/dl (12.0-16.0); Imm Gran Abs Auto 0.05 X10*3/uL (0.00-0.03); Imm Gran Pct Auto 0.6 % (0.0-0.4); Lymphocytes Absolute Auto 1.2 X10*3/uL (1.2-4.9); Lymphocytes Percent Auto 13.8 % (20-40); Mean Corpuscular HGB Conc 33.4 g/dl (31.0-35.0); Mean Corpuscular Hemoglobin 30.5 pg (27.0-33.0); Mean Corpuscular Volume 91.4 fL (80.0-98.0); Mean Platelet Volume 9.4 fL (9.4-12.3); Monocytes Percent Auto 11.7 % (2-11); Neutrophils Absolute Auto 6.1 x10*3/uL (2.0-8.3); Neutrophils Percent Auto 68.7 % (45-73); Platelet Count 381 X10*3/uL (160-400); Red Blood Count 3.83 X10*6/uL (4.20-5.50); Red Cell Distribution Width 13.4 % (11.0-16.0); White Blood Count 8.8 X10*3/uL (4.8-10.8)
[2024-03-05 16:00] LABS: Alanine Aminotransferase 11 U/L (0-31); Albumin Level 2.6 g/dL (3.5-5.0); Alkaline Phosphatase 140 U/L (39-117); Anion Gap 15 (12-20); Aspartate Amino Transferase 27 U/L (5-31); Bilirubin Direct 0.2 mg/dL (0.0-0.5); Bilirubin Total 0.3 mg/dL (0.0-1.0); Blood Urea Nitrogen 26 mg/dL (9-16); Calcium 9.4 mg/dL (8.4-10.2); Carbon Dioxide 30 mmol/L (22-29); Chloride 96 mmol/L (96-108); Creatinine Clr Calc Pharmacy 26.7; Estimated Glomerular Filt Rate 39; Glucose Random 105 mg/dL (60-115); Lipase 32 U/L (8-78); Magnesium 2.2 mg/dL (1.6-2.6); Potassium 3.6 mmol/L (3.3-5.1); Sodium 137 mmol/L (135-145); Total Protein 7.1 g/dL (6.5-8.0)
[2024-03-05 16:07] LABS: Troponin-I High Sensitivity 7.7 ng/L (<3.5-17.0)
[2024-03-05 16:10] LABS: COVID-19 Test Negative (Negative); IDNOW Serial# 152EDE1D
--- OUTSIDE RECORDS SUMMARY | 2024-03-05 16:17 | XMS_ITS | Continuity of Care Document ---
Author Organization [facility] ter Address [address] [place] [id number] Care Team Providers Care Chief Information Security Officer Name Role Phone Jayjay Sood MD Primary Care Physician [phone] [facility] Date(s): 11/06/23 - 11/08/[address] [address] Discharge Disposition: A-Transfer SNF Attending Physician: Ruth Chow DO Admitting Physician: Judy Aguilar MD Referring Physician: Not on Staff, Referring MD Allergies, Adverse Reactions, Alerts Substance Reaction Severity Status codeine Active Vicodin Active iodine Active Medications Amlodipine = 5 mg, By Mouth, Daily, 0 Refills, Maintenance, 11/06/23 18:21:00 EDT, Partial fill upon patient request if the prescription is for a schedule II opioid drug. Start Date: 11/06/23 Status: Ordered Aspirin Tablet 81 mg, By Mouth, Daily, Refills 0, Maintenance, 11/06/23 18:24:00 EDT, Partial fill upon patient request if the prescription is for a schedule II opioid drug. Start Date: 11/06/23 Status: Ordered Atrovent HFA 17 mcg/inh inhalation aerosol 2 puffs, Inhalation, 4 times a day, PRN Wheezing/Shortness of Breath, # 12.9 Gm, 0 Refills, Maintenance, 11/08/23 14:53:00 EDT, Aerosol, Partial fill upon patient request if the prescription is for aschedule II opioid drug. Start Date: 11/08/23 Status: Ordered Atrovent HFA Inhaler Maintenance, 11/27/13 15:18:06 Start Date: 11/27/13 Status: Ordered famotidine 20 mg oral tablet 1 tablet = 20 mg, By Mouth, 2 times a day, 0 Refills, Maintenance, 11/27/13 15:18:38 Start Date: 11/27/13 Status: Ordered Gabapentin = 300 mg, By Mouth, 2 times a day, 0 Refills, Maintenance, 11/06/23 18:22:00 EDT, Partial fill uponpatient request if the prescription is for a schedule II opioid drug. Start Date: 11/06/23 Status: Ordered levothyroxine 0.05 mg oral tablet 1 tablet = 50 mcg, By Mouth, Daily, takes on mon///sat, # 30 tablet, 0 Refills, Maintenance, 11/06/23 18:15:00 EDT, Tablet, Partial fill upon patient request if the prescription is for a schedule II opioid drug. Start Date: 11/06/23 Status: Ordered levothyroxine 0.075 mg oral tablet = 75 mcg, By Mouth, mon/wed/fri, 0 Refills, Maintenance, 11/06/23 18:17:00 EDT, Partial fill upon patient request if the prescription is for a schedule II opioid drug. Start Date: 11/06/23 Status: Ordered Mag-Ox 400 400 mg oral tablet 1 tablet = 400 mg, By Mouth, Daily at bedtime, 0 Refills, Maintenance, 11/06/23 18:20:00 EDT, Partial fill upon patient request if the prescription is for a schedule II opioid drug. Start Date: 11/06/23 Status: Ordered montelukast 10 mg oral tablet 1 tablet = 10 mg, By Mouth, Daily in PM, # 30 tablet, 0 Refills, Maintenance, 11/27/13 15:21:20, Tablet Start Date: 11/27/13 Status: Ordered Neurontin 300 mg oral capsule 300 mg, Capsule, By Mouth, 11/08/23 9:00:00 EDT Start Date: 11/08/23 Stop Date: 11/08/23 Status: Completed Vital Signs Most recent to oldest [Reference Range]: 1 2 3 Height 168 cm (11/08/23 4:47 PM) 168 cm (11/08/23 7:29 AM) 168 cm (11/08/23 4:42 AM) Weight 65.3 kg (11/06/23 5:30 PM) Oxygen Saturation [94-100 %] 98 % (11/08/23 4:47 PM) 100 % (11/08/23 7:29 AM) 100 % (11/08/23 4:42 AM) Pulse Rate [55-90 bpm] 93 bpm *H* (11/08/23 4:47 PM) 89 bpm (11/08/23 7:29 AM) 51 bpm *L* (11/08/23 4:42 AM) Body Mass Index [18.5-24.99 kg/m2] 23.14 kg/m2 (11/06/23 5:30 PM) Blood Pressure [90-138/55-84 mm Hg] 142/64mm Hg *H* (11/08/23 4:47 PM) 136/74mm Hg (11/08/23 7:29 AM) 155/87mm Hg *H* (11/08/23 4:42 AM) Respiratory Rate [16-30 br/min] 18 br/min (11/08/23 4:47 PM) 18 br/min (11/08/23 9:57 AM) 18 br/min (11/08/23 8:57 AM) Temperature [96.8-100.4 DegF] 98.7 DegF (11/08/23 4:47 PM) 98.2 DegF (11/08/23 7:29 AM) 97.5 DegF (11/08/23 4:42 AM) Liters per Minute 3 L/min (11/08/23 7:29 AM) 2 L/min (11/08/23 4:42 AM) 2 L/min (11/07/23 11:48 PM) Mode of Delivery (Oxygen) Room air (11/08/23 4:47 PM) Nasal cannula (11/08/23 7:29 AM) Nasal cannula (11/08/23 4:42 AM) Blood pressure sites Arm, left (11/08/23 4:47 PM) Arm, left (11/08/23 7:29 AM) Arm, left (11/08/23 4:42 AM) Temperature Route Oral (11/08/23 4:47 PM) Oral (11/08/23 7:29 AM) Oral (11/08/23 4:42 AM) Dry Weight 65.3 kg (11/06/23 5:30 PM) Social History Social History Type Response Smoking Status Former smoker entered on: 05/13/14 Sex History and physical note * Merlyn Albert DO: PERFORM Event Display: History and Physical Hospital Authored Date: [id number] Patient: ??SUNSHINE CRESPO ? Age:??88 Years?Sex:??Female?:??1935?? History of Present Illness 88yo with past medical history significant for COPD on home O2, HTN, HLD, paroxysmal afib,??aortic aneurysm, history of SD, hypothyroidism??and known right??adenxal mass presenting as transfer for nausea/vomiting and abdominal pain. She was given dilaudid??and morphine along with antiemetics and IVfluids in the [place] [facility] ED prior to transfer. Concern for ovarian torsion as patient underwent CT scan imaging demonstrating a stable aortic aneurysm at 3.4cm but a cystic structure within the right adnexa. An ultrasound was performed demonstrating cystic structure in right adnexa measuring 9.5x5.8x3.4cm that is cystic in nature. No comment was made on doppler??flow as ovaries were not visualized. She is also status post hysterectomy. She was also noted to be hypokalemic and have an [facility]. [facility] of [facility]??RVR rate and was given a dose of metoprolol as well as 40mg lovenox for DVT??prophylaxis. She as also started on ceftriaxone for a UTI based on UA. Patient was seen by gynecology at [facility] due to imaging findings of ovarian cyst who recommended transfer for surgical intervention.? Upon chart review, patient has had right ovarian cyst since at least 2017. Initial ultrasound demonstrated right ovarian cyst measuring 5.7x5.0x5.5 which had a slight increase in size in 2018 to 7.2x5.4x5.3. It appears she was going to have follow up with hose handler??onc for management but it does not appear at least in the [facility] system??that she had any follow up. Per [facility] notes, she hasn't had any follow up for this cyst due to being in facilities and hospital admissions? At time of evaluation here at [facility], patient was soundly sleeping. Upon wakening, patient cannot tell me why she went to the emergency room and cannot answer my questions as she just woke up .She at least??denies nausea/vomiting/abdominal pain. When asked about her ovarian cyst history she s tates I'm??88, I??may have an ovarian cyst .?? Review of Systems Constitutional, HEENT, cardiovascular, respiratory, gastrointestinal, genitourinary, musculoskeletal, skin, endocrine, neurological, psychiatric, hematologic/lymphatic, allergy/immune otherwise reviewed and negative Physical Exam Vitals & Measurements T:??98.3?F?? HR:??70??(Peripheral)?? RR:??16?? BP:??152/59?? SpO2:??98%?? HT:??168??cm?? WT:??65.3??kg?? BMI:??23.14?? Constitutional:??Normal affect, no acute distress, well-developed. Respirations:??Normal exam, not labored.? Abdomen/GI:??Soft, non-tender, and non-distended, no guarding, no rebound tenderness.? Gynecology: deferred?? Extremities:??No clubbing, cyanosis or edema present.?? Skin:??No rash or jaundice. Normal for ethnicity. Neurological/Psychiatric:??Appearance appropriate, mood and affect stable. Assessment/Plan Assessment:??88yo with past medical history significant for COPD on home O2, HTN, HLD, paroxysmal afib,??aortic aneurysm, history of SD, hypothyroidism??and known right??adnexal mass presenting as transfer for nausea/vomiting and abdominal pain concerning for possible ovarian torsion given 9cm right adnexal mass. Initially with hypokalemia and RONAK prior to arrival. Vitals with hypertension and on3L of supplemental oxygen but otherwise within normal limits. Patient has no abdominal pain and is overall well appearnig. Her abdominal exam is unremarkable, non-acute. Upon review of her chart, it appears this is a known adnexal mass with slight interval growth over last 7 years. Tumor markers obt ained which are within normal limits. 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 No concern for ovarian torsion given resolution of pain. In addition with patient's age, ovaries are no longer functional and with significant medical conditions, patient is not great surgical candidate even in the setting of possible ovarian torsion. ?? At this time with non-acute abdomen and significant medical comorbidities, no indication to proceed to operating room. Repeat labs demonstrate resolution of hypokalemia but persistent RONAK. Gentle IV fluids started with compazine for anti-emetics. As patient has no abdominal pain at this time andno surgical intervention indicated, will proceed with medicine transfer given complex medical history. ? Hypertension (I10):??. ?? COPD without exacerbation (J44.9):? Normally on 2-3L O2 at home currently on 3L supplemental O2 ?? Atrial fibrillation, chronic (I48.20):? Not on anticoagulation s/p 1 time dose of lovenox on 11/05 ?? Aortic aneurysm, abdominal (I71.40):? Stable, measuring 3.4cm seen on CT scan ?? Stenosis of carotid artery (I65.29):??. ?? Hypothyroid (E03.9):??. ?? Right ovarian mass (N83.8):? negative tumor markers consider outpatient follow up with hose handler ?? Acute kidney injury (N17.9):? Creatinine 1.6 on admission 75cc/hr IVF ?? Nausea and vomiting (R11.2):? compazine ordered PRN ?? Patient discussed with Dr. Hill, attending physician ?? OB History History?(0,0,0,0)?No previous pregnancies history have been recorded Active Problem List Active Problem List?? No qualifying data available. Procedure/Surgical History No qualifying data available. Home Medications Amlodipine: 5 mg, By Mouth, 2 times a day Aspirin: 81 mg, By Mouth, Daily Cholecalciferol: By Mouth Famotidine: 20 mg = 1 tablet, By Mouth, 2 times a day Furosemide: 20 mg, By Mouth, Daily Gabapentin: 300 mg, By Mouth, 2 times a day Hydrochlorothiazide: 12.5 mg, By Mouth, Daily Ipratropium Levothyroxine: 50 mcg = 1 tablet, By Mouth, Daily, takes on sun/tu/th/sat Levothyroxine: 75 mcg, By Mouth, mon/mon/mon Lorazepam: 0.25 mg = 0.5 tablet, By Mouth, 2 times a day Magnesium Oxide: 400 mg = 1 tablet, By Mouth, Daily at bedtime Montelukast: 10 mg = 1 tablet, By Mouth, Daily in PM Multivitamin With Minerals: 1 tablet, By Mouth, Daily Potassium Chloride Simvastatin: 10 mg = 1 tablet, By Mouth, Daily at bedtime Tramadol: 50 mg = 1 tablet, By Mouth, Every 4 hours Allergies Vicodin codeine iodine Social History Tobacco Former smoker Family History No family history recorded. * Liz ENRIQUEZ, Lizbeth Casarez: PERFORM Event Display: History and Physical Hospital Authored Date: Attending Attestation:??I have seen and evaluated this patient. ??I have discussed the case and itsmanagement with the resident and agree with the findings and plan as documented in the resident???snote.?? no acute abdominal findings and this cyst appears to have been there prior. Admission evaluation note * Julia ENRIQUEZ, Nelson Herman: PERFORM, MODIFY Event Display: Admission Note Authored Date: Patient: ??SUNSHINE CRESPO ? Age:??88 Years?Sex:??Female?:??1935?? History of Present Illness This is an 88-year-old female with past medical??history pertinent for COPD on home oxygen, hypertension, hyperlipidemia, paroxysmal atrial fibrillation, aortic aneurysm,??CAD, hypothyroidism, known right adnexal mass??transferred??to [facility] from [facility] for nausea/vomiting and abdominalpain with concerns of ovarian torsion. ?? ER??course:?? Patient is already evaluated by MONITORING MANAGER team,??underwent CT scan imaging which demonstrated??stable aortic aneurysm but cystic structure within the right adnexa, ultrasound was also done??which showeda cystic lesion??however no comment was made on Doppler flow.??There was concerns of UTI and she was started on??ceftriaxone ?? Patient was seen and examined at bedside this morning her granddaughter was also present at bedsidewho provides collateral history Patient appears to be alert and oriented x 2, however??does not have a good grasp of recent events,does have a good sense of humor but??is not a very good historian Granddaughter provides most of the history??reports that??earlier this month she initially fell at home, lives at a??nursing facility called [facility]??where she was set up with physical therapy??subsequently??she was treated earlier this month also for influenza B and a UTI Followed by this at some point this month??patient complained of chest pain and abdominal pain and was taken to??the hospital but did not find any obvious cause and once again she was discharged??joan presented to [facility] with abdominal pain, nausea and vomiting of unclear duration ?? As outlined above hypolobated a CT abdomen which??raised concern of an ovarian cyst and patient was sent here for further evaluation however??upon my??interview with patient??currently she is denying any abdominal pain or nausea reports she does not feel like eating, has poor appetite Is on 3 L of oxygen but appears that this is at home??oxygen requirement She denies any recent??fevers, chills No further vomiting since she has been in the hospital No pain or burning with urination,??no chest pain, shortness of breath, palpitations Denies any syncopal episodes Review of Systems Negative except as mentioned above Objective Measurements?? Height: 168 cm (11/06/23) Weight: 65.3 kg (11/06/23) Dry Weight: 65.3 kg (11/06/23) Body Mass Index: 23.14 kg/m2 (11/06/23) ? Vital Signs?? Temperature: 98.6 DegF (11/07/23 10:00:00) Temperature Route: Oral (11/07/23 10:00:00) Pulse Rate:??92 bpm??High (11/07/23 10:00:00) Respiratory Rate: 18 br/min (11/07/23 12:06:00) Systolic Blood Pressure: 117 mm Hg (11/07/23 10:00:00) Diastolic Blood Pressure: 63 mm Hg (11/07/23 10:00:00) Blood pressure sites: Arm, left (11/07/23 10:00:00) Mean Arterial Pressure: 93 mm Hg (11/06/23 17:30:00) Pulse Pressure: 54 mm Hg (11/07/23 10:00:00) Oxygen Saturation: 96 % (11/07/23 10:00:00) Liters per Minute: 3 L/min (11/07/23 10:00:00) Mode of Delivery (Oxygen): Nasal cannula (11/07/23 10:00:00) Early Warning Score: 0 (11/07/23 12:12:03) ? Pain Scores?? No qualifying data available. ?? Intake/Output? 11/05 16:49 11/06 07:00 11/05 07:00 11/04 07:00 11/03 07:00 ?? 11/06 15:21 11/06 15:21 11/06 06:59 11/05 06:59 11/04 06:59 Intake ? 1396.2 ?785 ?611.2 ?0 ?0 Output ?250 ? 50 ?200 ?0 ?0 Net Total ? 1146.2 ?735 ?411.2 ?0 ?0 ? Urine Count ?2 ?1 ?1 ?0 ?0 ? Watkins Coma Scale Watkins Coma Score: 15 (11/06/23 22:50:00) Motor Response-Adult: Obeys commands (11/06/23 22:50:00) Response Eye Opening: Spontaneously (11/06/23 22:50:00) Verbal Response-Adult: Oriented and converses (11/06/23 22:50:00) ? Basic ADLs Hygiene: Total, Elier care, Other: bed sheets changed (11/07/23) ? Mobility & Ambulation Level Mobility & Ambulation Level?? No qualifying data available. ?? Therapeutic Activity Therapeutic Activities/Mobility/Balance?? No qualifying data available. ? Physical Exam Constitutional: Alert, in no acute distress. Respiratory: Clear to auscultation. No wheezing or crackles. No use of accessory muscles. ??On 3 L of nasal cannula oxygen Cardiovascular: S1S2 regular.?? Gastrointestinal: Abdomen soft, non-tender, non-distended. Normal bowel sounds. Extremities: No lower extremity pitting??edema. Neurologic: AAOx2 to self and place but not to time, Speech normal.?? Moving bilateral upper and lower extremities spontaneously Skin: No rash. Psychiatric: Normal mood and affect ?? Initially on admission noted to be in A-fib with??RVR in the 100-1 tens On 3 L of nasal cannula oxygen which appears to be her baseline ?? On labs there is mild anemia Creatinine is at 1.6 I do not have a prior value to look at her baseline ?? Reviewed CT scan that was done at [facility]??? Mostly unremarkable no acute??intra-abdominal??process which appears to be stable at 3.4 cm Approximately 9 cm adnexal mass Stable old??compression fractures but there is a T11 compression fracture which appears new ?? Subsequently ultrasound was also done??which redemonstrated right adnexal cystic mass however??no comment on Doppler flow was made because ovaries were not visualized Assessment/Plan Diagnoses Acute kidney injury ??(N17.9) Aortic aneurysm, abdominal ??(I71.40) Atrial fibrillation, chronic ??(I48.20) COPD without exacerbation ??(J44.9) Compression fracture of vertebra ??(M48.50XA) Hypertension ??(I10) Hypothyroid ??(E03.9) Nausea and vomiting ??(R11.2) Right tubo-ovarian mass ??(N83.8) Stenosis of carotid artery ??(I65.29) ?? Right tubo-ovarian mass (N83.8):??Patient has what seems to be a right-sided cystic appearing approximately 9 cm??adnexal mass Currently her symptoms of abdominal pain, nausea and vomiting have resolved Abdominal exam is benign She was evaluated by MONITORING MANAGER??and tumor markers were obtained which are within normal limits Per MONITORING MANAGER there is low concern for NETWORK CONTROL OPERATOR malignancy and the cyst is likely??benign??hence??no further workup was recommended Coming to the question of ovarian torsion???they feel this is unlikely given resolution of pain andsymptoms??also the fact that given her age her ovaries are no longer functional??and she is not a good surgical candidate as a result of which??due to benign abdomen??decision was??made that she doesnot need any further??workup for this. I confirmed the plan personally with the MONITORING MANAGER resident ?? Acute kidney injury (N17.9):??Baseline creatinine need per records from [facility] are closerto 1 Likely in setting of poor oral intake Reviewed CT scan which was done which did not show any evidence of??hydronephrosis or ureteric obstruction Improving with hydration Urine studies were ordered unfortunately not yet done Will continue hydration with LR for now ?? UTI:??Patient not a good historian, at [facility] based on UA she was started on ceftriaxone. UCX were sent at [facility]. I have ordered repeat here, but??might need to call [facility] for updateon Urine cultures. ?? Aortic aneurysm, abdominal (I71.40):??Stable, 3.4 cm she should continue outpatient follow-up with PCP??and vascular surgery ?? Atrial fibrillation, chronic (I48.20):??She is not on anticoagulation chronically Not on any rate control medications or AV joseph blocking agents Continue hydration for now??since she does appear significantly dehydrated Continue telemetry for now??can DC tomorrow ?? COPD without exacerbation (J44.9):??On 3 L of oxygen at home currently stable does not appear to bein exacerbation Continue home inhalers ?? Hypertension (I10):??On hydrochlorothiazide at home which we are holding currently ?? She is also on Lasix 60 mg daily at home however??we do not have any prior cardiac history and patient is not able to provide us with this history Clinically she appears significantly hypo to euvolemic??and as a result of which??and her RONAK??we are hydrating her gently and cautiously Holding off on Lasix will admit gradually as appropriate ?? Hypothyroid (E03.9):??Continue home levothyroxine as ordered ?? Nausea and vomiting (R11.2):??Now resolved, unclear etiology, viral gastroenteritis? ?? Stenosis of carotid artery (I65.29):??Continue aspirin, statin appears to have been discontinued asthat was not present in the med list provided from longterm ?Antithrombotic Therapy by End of Hospital Day 2:??Antithrombotic ordered ?? Compression fracture of vertebra (M48.50XA):??Old plus new T11 however no new neurological deficitson limited exam, likely from recent fall PT eval Patient is not reporting any pain at this time??however if she should??report then could consider adding some analgesics ?? VTE Prophylaxis:??Lovenox ?VTE Prophylaxis Assessment:??VTE Prophylaxis Ordered ?? Code Status:??DNR/DNI ?Order Code Status:??Code Status Ordered ?? Ongoing Medical Necessity:??RONAK, IV Fluids, PT eval ?? Discharge Planning:? Histories Allergies Allergies ?(Active and Proposed Allergies Only) Vicodin? (Severity: Unknown severity, Onset: Unknown) iodine? (Severity: Unknown severity, Onset: Unknown) codeine? (Severity: Unknown severity, Onset: Unknown) ? Past Medical History/Problem List No problems documented. ? Past Surgical History No surgery history documented. ? Social History Tobacco Details:??Former smoker ? Psychosocial History ? Family History No Family History documented. ? Functional Assessments Hygiene: Total, Elier care, Other: bed sheets changed ?? Medications Home Medications Amlodipine?5?Milligram?By Mouth?2 times a day Aspirin (Aspirin Tablet)?81?Milligram?By Mouth?Daily Cholecalciferol (Vitamin D3)?By Mouth Famotidine (famotidine 20 mg oral tablet)?1?tab(s)?20?Milligram?By Mouth?2 times a day Furosemide?20?Milligram?By Mouth?Daily Gabapentin?300?Milligram?By Mouth?2 times a day Hydrochlorothiazide?12.5?Milligram?By Mouth?Daily Levothyroxine (levothyroxine 0.05 mg oral tablet)?1?tab(s)?50?Microgram?By Mouth?Daily?takes on sun/tues/thurs/sat Levothyroxine (levothyroxine 0.075 mg oral tablet)?75?Microgram?By Mouth?mon/mon/mon Lorazepam (lorazepam 0.5 mg oral tablet)?0.5?tab(s)?0.25?Milligram?By Mouth?2 times a day Magnesium Oxide (Mag-Ox 400 400 mg oral tablet)?1?tab(s)?400?Milligram?By Mouth?Daily at bedtime Montelukast (montelukast 10 mg oral tablet)?1?tab(s)?10?Milligram?By Mouth?Daily in PM Multivitamin With Minerals (Ocuvite PreserVision oral tablet)?1?tab(s)?By Mouth?Daily Simvastatin (simvastatin 10 mg oral tablet)?1?tab(s)?10?Milligram?By Mouth?Daily at bedtime Tramadol (tramadol 50 mg oral tablet)?1?tab(s)?50?Milligram?By Mouth?Every 4 hours ? Inpatient Medications Medications (13) Active SCHEDULED: (10) Aspirin 81 mg EC Tablet (Aspirin Tablet) ??81 mg, By Mouth, Daily Ceftriaxone 1 Gm Inj (Ceftriaxone Inj) ??1 Gm, IVPB, Every 24 hours Enoxaparin 40 mg Inj (Enoxaparin Inj) ??40 mg 0.4 mL, Subcutaneous Injection, Daily Famotidine 20 mg Tablet (famotidine 20 mg oral tablet) ??20 mg, By Mouth, 2 times a day Gabapentin 300 mg Capsule (Neurontin 300 mg oral capsule) ??300 mg, By Mouth, 2 times a day Levothyroxine 25 mcg Tablet (levothyroxine 0.025 mg oral tablet) ??50 mcg, By Mouth, Every Mondayand Monday Levothyroxine 25 mcg Tablet (levothyroxine 0.025 mg oral tablet) ??50 mcg, By Mouth, Every Monday and Levothyroxine 75 mcg Tablet (levothyroxine 0.075 mg oral tablet) ??75 mcg, By Mouth, Every Monday, Monday and Monday Magnesium Oxide 400 mg Tablet (magnesium oxide 400 mg oral tablet) ??400 mg, By Mouth, 2 times a day Montelukast 10 mg Tablet (montelukast 10 mg oral tablet) ??10 mg, By Mouth, Daily CONTINUOUS: (1) Lactated Ringers (1000 mL) Cont IV 1000 mL (LR 1000 mL) ??1,000 mL, IV Infusion, 50 mL/hr PRN: (2) Ipratropium 0.02% Inhalation Solution (Ipratropium 0.02% inhalation hector) ??0.5 mg 2.5 mL, BAND Nebulizer, 3 times a day PROCHLORperazine 5mg/ml Inj (Compazine Inj) ??5 mg 1 mL, IV Push, Every 6 hours ? Results Recent Labs BLOOD COUNT & DIFF WBC 8.0 k/mm3 ()?? 11/07/2023 10:28 RBC 3.63 m/mm3 (Low)?? 11/07/2023 10:28 Hgb 11.8 Gm/dL ()?? 11/07/2023 10:28 Hct 35.4 % (Low)?? 11/07/2023 10:28 MCV 97.5 femtoliters ()?? 11/07/2023 10:28 MCH 32.5 pg ()?? 11/07/2023 10:28 MCHC 33.3 g/dL ()?? 11/07/2023 10:28 Platelet Count 239 k/mm3 ()?? 11/07/2023 10:28 RDW-SD 47.4 femtoliters (High)?? 11/07/2023 10:28 MPV 10.2 femtoliters ()?? 11/07/2023 10:28 Nucleated RBC (Automated) 0.0 #/100 WBC'S ()?? 11/07/2023 10:28 Abs. NRBC 0.0 k/mm3 ()?? 11/07/2023 10:28 ?? CHEM GENERAL Sodium 136 mmol/L ()?? 11/07/2023 10:40 Potassium 3.3 mmol/L (Low)?? 11/07/2023 10:40 Chloride 91 mmol/L (Low)?? 11/07/2023 10:40 Bicarbonate Level 35 mmol/L (High)?? 11/07/2023 10:40 Anion Gap 10 ()?? 11/07/2023 10:40 Glucose Level 73 mg/dL ()?? 11/07/2023 10:40 BUN 14 mg/dL ()?? 11/07/2023 10:40 Creatinine-Blood 1.2 mg/dL (High)?? 11/07/2023 10:40 Estimated GFR Creatinine 45 ML/MIN/1.73 M2 ()?? 11/07/2023 10:40 Calcium 8.7 mg/dL ()?? 11/07/2023 10:40 Magnesium 2.9 mg/dL (High)?? 11/07/2023 10:40 ?? ENDOCRINE/TUMOR MARKER CEA Monoclonal 6.4 ng/mL ()?? 11/06/2023 20:37 Canc Ant-125 11 units/mL ()?? 11/06/2023 20:37 CA19-9 20 U/mL ()?? 11/06/2023 20:37 ?? URINE OTHER Est Creatinine Clearance 31.09 mL/min ()?? 11/07/2023 11:35 ? Blood Glucose Trend Glucose Level: 73 mg/dL (11/07/23 10:40:00) Glucose Level:??109 mg/dL??High (11/06/23 20:37:00) ? LFT?? No qualifying data available. ?? Urinalysis Est Creatinine Clearance: 31.09 mL/min (11:35) Est Creatinine Clearance: 23.32 mL/min (21:11) ? Blood Gases?? No qualifying data available. ?? Uric/LDH?? No qualifying data available. ?? Cardiology * Event Display: Cardiac Rhythm Strips Authored Date: Hospital Progress note * Helen Weinberg RN: PERFORM, SIGN, VERIFY Event Display: Progress Note Hospital Authored Date: Patient: SUNSHINE CRESPO Age: 88 years Sex: Female : 1935 Associated Diagnoses: None Author: Helen Weinberg RN Findings Problem Related to Alteration in Genitourinary : Alteration in Genitourinary Function/new 11/08/2023 2:00 EDT Alteration in Status Related to Other: mass Goals & Outcomes, Genitourinary Pt will achieve normal/improved fluid balance, Pt will maintainadequate GI function appropriate for pt, Pt will maintain adequate function appropriate for pt, Pt will maintain normal fluid balance, Pt will resume normal pattern of elimination, Pt/caregiver will state understanding of self-care skills Interventions, Assess/monitor/maintain Genitourinary status, Assist & encourage pt with meticulous elier care, Encourage PO fluid intake as allowed by diet BH Goals/Interventions, Genitourinary Yes Genitourinary, Problem Start 11/06/2023 19:15 Reviewed Plan with, Genitourinary Patient Patient Progression, Genitourinary Patient progressing according to plan Genitourinary, Problem Ongoing Yes . Nursing Data Evaluation Patient is AOx3 and VS are stable. Has no c/oc pain and denies chest pain, SOB, and N/V/D. Abdomen is soft, flat, and nontender with normoactive bowel sounds. She is on telemetry and monitor technician has shown normal sinus rhythm. She is incontinent of urine, however, she is voiding clear yellow urine. Skin is intact. Her coccyx has blanchable erythema and z-guard has been applied. Respirations are regular, clear, and unlabored on 2L of O2 via nasal cannula. Please see biophysical assessment for full assessment. All scheduled medications were administered according to the MAR. Bed is in lowest locked position with bed alarm on. Instructed on use of call peters and call peters is within reach. E ncouraged rest to promote comfort and healing.. * Rogers CHADWICK, Juhi: PERFORM, SIGN, VERIFY Event Display: Progress Note Hospital Authored Date: Patient: SUNSHINE CRESPO Age: 88 years Sex: Female : 1935 Associated Diagnoses: None Author: Rogers CHADWICK, Juhi Findings Problem Related to Alteration in Genitourinary : Alteration in Genitourinary Function/new 11/07/2023 7:00 EDT Alteration in Status Related to Other: mass Goals & Outcomes, Genitourinary Pt will achieve normal/improved fluid balance, Pt will maintainadequate GI function appropriate for pt, Pt will maintain adequate function appropriate for pt, Pt will maintain normal fluid balance, Pt will resume normal pattern of elimination, Pt/caregiver will state understanding of self-care skills Interventions, Assess/monitor/maintain Genitourinary status, Assist & encourage pt with meticulous elier care BH Goals/Interventions, Genitourinary Yes Genitourinary, Problem Start 11/06/2023 19:15 Reviewed Plan with, Genitourinary Patient Patient Progression, Genitourinary Patient progressing according to plan Genitourinary, Problem Ongoing Yes . Narrative/Incidental PT transferred to unit from [facility]. Pt came via therapeutic bed. . Oriented to unit and room. A+Ox3. VSS. Pt denies SOB, chest pain, N/V/D. Respirations even and steady, on 2L. Incontinent of urine and BM, last BM 11/07/23. Admission skin assessment completed with second RN, no open areas noted. On TELE NSR. Bed locked, in lowest position, and alarms in place. Call peters placed next to patient within reach, pt encouraged to ring for assistance. All pts needs were met. . * Shadi CHADWICK, Maurice: VERIFY, PERFORM, SIGN Event Display: Progress Note Hospital Authored Date: [id number] Patient: SUNSHINE CRESPO Age: 88 years Sex: Female : 1935 Associated Diagnoses: None Author: Maurice Hsu RN Findings Problem Related to Alteration in Genitourinary : Alteration in Genitourinary Function/new 11/07/2023 7:00 EDT Alteration in Status Related to Other: mass Goals & Outcomes, Genitourinary Pt will achieve normal/improved fluid balance, Pt will maintainadequate GI function appropriate for pt, Pt will maintain adequate function appropriate for pt, Pt will maintain normal fluid balance, Pt will resume normal pattern of elimination, Pt/caregiver will state understanding of self-care skills Interventions, Assess/monitor/maintain Genitourinary status, Assist & encourage pt with meticulous elier care BH Goals/Interventions, Genitourinary Yes Genitourinary, Problem Start 11/06/2023 19:15 Reviewed Plan with, Genitourinary Patient Patient Progression, Genitourinary Patient progressing according to plan Genitourinary, Problem Ongoing Yes . Nursing Data Cardiac Data. : Cardiac Data. 11/07/2023 9:53 EDT Carotid Pulse, Left Normal Carotid Pulse, Right Normal Brachial Pulse, Left Normal Brachial Pulse, Right Normal Radial Pulse, Left Normal Radial Pulse, Right Normal Femoral Pulse, Left Normal Femoral Pulse, Right Normal Popliteal Pulse, Left Normal Popliteal Pulse, Right Normal Posttibial Pulse, Left Normal Posttibial Pulse, Right Normal Dorsalis Pedis Pulse, Left Normal Dorsalis Pedis Pulse, Right Normal Edema, Left Pretibial 1+ trace Edema, Right Pretibial 1+ trace Ankle, left 1+ trace Ankle, right 1+ trace Cardiovascular WNL except . Gastrointestinal Data. : Gastrointestinal Data. 11/07/2023 9:53 EDT Abdomen Flat, Soft, Non-tender, Round LLQ Tenderness To palpation LUQ Tenderness To palpation RLQ Tenderness To palpation RUQ Tenderness To palpation Bowel Sounds LUQ Present Bowel Sounds RUQ Present Bowel Sounds LLQ Present Bowel Sounds RLQ Present GI WNL except . Genitourinary Data. : Genitourinary Data. 11/07/2023 9:53 EDT Genitourinary Symptoms Incontinent WNL except . Integumentary Data. : Integumentary Data. 11/07/2023 9:54 EDT Sensory Perception No impairment Moisture Rarely moist Activity Bedfast Mobility Very limited Nutrition Adequate Friction and Shear No apparent problem Jim Score 17 Nursing Care Plan initiated/updated Yes Integumentary WNL except Leg Right Skin Abnormality Type: Arterial/Venous Wound Assessment Activity: Reassessment Wound Present on Admission: Yes Skin Abnormality Color: Purple, Red Wound Dressing: Open to air . Musculoskeletal Data. : Musculoskeletal Data. 11/07/2023 9:53 EDT Musculoskeletal Symptoms Weakness Musculoskeletal WNL except . Vital Signs : VITAL SIGNS SECTION 11/07/2023 7:00 EDT Temperature 98.3 DegF Temperature Route Oral Pulse Rate 94 bpm H Respiratory Rate 17 br/min Systolic Blood Pressure 119 mm Hg Diastolic Blood Pressure 45 mm Hg L Blood pressure sites Arm, left Pulse Pressure 74 mm Hg Oxygen Saturation 96 % Liters per Minute 3 L/min Mode of Delivery (Oxygen) Nasal cannula . Narrative/Incidental Patient is alert and oriented to self only. Denies pain. Lung souds clear but dim, denies shortnessof breath or chest pains. Pulses palpable, trace edema noted to the lower legs. Bowel sounds active, denies nausea or vomiting. Tolerating regular diet. Last BM 11/05. Umbilical hernia noted. Skin is intact, other than vascular/aterial varacose veins noted to the left lower leg. Coccyx also pink butblanchable, applied Z guard cream. Incontinent of urine, prima intact. Can make needs known, call peters in reach. . Note * Angélica Stone RN: PERFORM Event Display: Discharge/Transfer Note Hospital Authored Date: [id number] Nursing Discharge Note Entered On: 11/08/2023 18:10 EDT Performed On: 11/08/2023 18:15 EDT by Angélica Stone RN Nursing Discharge Note 2 Discharge Time : 11/08/2023 18:15 EDT Discharge Level of Care at Discharge : [facility] facility Discharge Nursing Homes/Rehab Facilities : [facility] Patient Left Unit Via : Ambulance Patient Accompanied Off Unit with : Ambulance/Chair Van Personnel Handover Given to Transport Personnel : Yes DC Instructions Provided & Signed by Pt : No Patient Understands D/C Instructions : Yes Patient Instructions Discharge Signed : No Did Pt have Specialty Bed or Wound Vac : No Chase CHADWICK, Angélica - 11/08/2023 18:09 EDT * Ruth Chow DO F: PERFORM, MODIFY, MODIFY, MODIFY, MODIFY, MODIFY Event Display: Discharge/Transfer Note Hospital Authored Date: [id number] Patient: ??SUNSHINE CRESPO ? Age:??88 Years?Sex:??Female?:??1935?? 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) Acute kidney injury (N17.9) Nausea and vomiting (R11.2) Compression fracture of vertebra (M48.50XA) UTI (urinary tract infection) (N39.0) _ Discharge Medications Amlodipine?5?Milligram?By Mouth?Daily Aspirin (Aspirin Tablet)?81?Milligram?By Mouth?Daily Famotidine (famotidine 20 mg oral tablet)?1?tab(s)?20?Milligram?By Mouth?2 times a day Gabapentin?300?Milligram?By Mouth?2 times a day Ipratropium (Atrovent HFA 17 mcg/inh inhalation aerosol)?2?puff(s)?Inhalation?4 times aday?as needed?Wheezing/Shortness of Breath Levothyroxine (levothyroxine 0.05 mg oral tablet)?1?tab(s)?50?Microgram?By Mouth?Daily?takes on mon///mon Levothyroxine (levothyroxine 0.075 mg oral tablet)?75?Microgram?By Mouth?mon/mon/mon Magnesium Oxide (Mag-Ox 400 400 mg oral tablet)?1?tab(s)?400?Milligram?By Mouth?Daily at bedtime Montelukast (montelukast 10 mg oral tablet)?1?tab(s)?10?Milligram?By Mouth?Daily in PM ? Inpatient Medications Medications (15) Active SCHEDULED: (10) Aspirin 81 mg EC Tablet (Aspirin Tablet) ??81 mg, By Mouth, Daily Ceftriaxone 1 Gm Inj (Ceftriaxone Inj) ??1 Gm, IVPB, Every 24 hours Enoxaparin 40 mg Inj (Enoxaparin Inj) ??40 mg 0.4 mL, Subcutaneous Injection, Daily Famotidine 20 mg Tablet (famotidine 20 mg oral tablet) ??20 mg, By Mouth, Daily Gabapentin 300 mg Capsule (Neurontin 300 mg oral capsule) ??300 mg, By Mouth, 2 times a day Levothyroxine 25 mcg Tablet (levothyroxine 0.025 mg oral tablet) ??50 mcg, By Mouth, Every Mondayand Monday Levothyroxine 25 mcg Tablet (levothyroxine 0.025 mg oral tablet) ??50 mcg, By Mouth, Every Monday and Levothyroxine 75 mcg Tablet (levothyroxine 0.075 mg oral tablet) ??75 mcg, By Mouth, Every Monday, Monday and Monday Magnesium Oxide 400 mg Tablet (magnesium oxide 400 mg oral tablet) ??400 mg, By Mouth, 2 times a day Montelukast 10 mg Tablet (montelukast 10 mg oral tablet) ??10 mg, By Mouth, Daily CONTINUOUS: (0) PRN: (5) Acetaminophen 325 mg Tablet (Tylenol 325 mg oral tablet) ??650 mg, By Mouth, Every 6 hours Ipratropium 0.02% Inhalation Solution (Ipratropium 0.02% inhalation hector) ??0.5 mg 2.5 mL, BAND Nebulizer, 3 times a day Polyethylene Glycol 17 Gm Powder (MiraLax Powder) ??17 Gm 1 pack/packet, By Mouth, Daily PROCHLORperazine 5mg/ml Inj (Compazine Inj) ??5 mg 1 mL, IV Push, Every 6 hours Senna Tablet (Senna 8.6 mg oral tablet) ??8.6 mg 1 tablet, By Mouth, Daily ? Medications Started none Medications Discontinued Furosemide?20?Milligram?By Mouth?Daily Hydrochlorothiazide?12.5?Milligram?By Mouth?Daily Lorazepam (lorazepam 0.5 mg oral tablet)?0.5?tab(s)?0.25?Milligram?By Mouth?2 times a day- patient not receiving here, high risk medication Doses Changed none Allergies Allergies ?(Active and Proposed Allergies Only) Vicodin? (Severity: Unknown severity, Onset: Unknown) iodine? (Severity: Unknown severity, Onset: Unknown) codeine? (Severity: Unknown severity, Onset: Unknown) ? PCP Follow-Up/Heads-Up follow up with NETWORK CONTROL OPERATOR outpatient ?? Aortic aneurysm, abdominal (I71.40):?? Stable, 3.4 cm she should continue outpatient follow-up with PCP??and vascular surgery ?? can assess need for anticoagulation for afib outpatient ?? holding Lasix and HCTZ, BP overall well controlled- restart as indicated (was dehydrated on admit) ?? follow final blood cultures at [place] ?? Lorazepam (lorazepam 0.5 mg oral tablet)?0.5?tab(s)?0.25?Milligram?By Mouth?2 times a day- patient not receiving here, high risk medication - DISCONTINUED. PCP to re-address Hospital Course ??88-year-old female with past medical??history pertinent for COPD on home oxygen, hypertension, hyperlipidemia, paroxysmal atrial fibrillation, aortic aneurysm,??CAD, hypothyroidism, known right adnexal mass??transferred??to [facility] from [facility] for nausea/vomiting and abdominal pain with concerns of ovarian torsion. Patient's nausea and vomiting improved, RONAK resolved. Seen by NETWORK CONTROL OPERATOR- felt low concern for malignancy, no further workup, low concern for torsion and would not be a surgical candidate. 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 Patient has what seems to be a right-sided cystic appearing approximately 9 cm??adnexal mass Currently her symptoms of abdominal pain, nausea and vomiting have resolved Abdominal exam is benign She was evaluated by MONITORING MANAGER??and tumor markers were obtained which are within normal limits Per MONITORING MANAGER there is low concern for NETWORK CONTROL OPERATOR malignancy and the cyst is likely??benign??hence??no further workup was recommended Coming to the question of ovarian torsion???they feel this is unlikely given resolution of pain andsymptoms??also the fact that given her age her ovaries are no longer functional??and she is not a good surgical candidate as a result of which??due to benign abdomen??decision was??made that she doesnot need any further??workup for this.? Acute kidney injury (N17.9):?? Baseline creatinine need per records from [facility] are closer to 1. given fluids and now creatinine 1.0 Likely in setting of poor oral intake Reviewed CT scan which was done which did not show any evidence of??hydronephrosis or ureteric obstruction Improving with hydration ?? ?UTI:?? Patient not a good historian, at [place] based on UA she was started on ceftriaxone. UCX were sent at [place] [facility] hospital- called and no growth. blood cultures also have shown no growth completed 3 days of ceftriaxone - PCP to follow final blood cultures ?? Aortic aneurysm, abdominal (I71.40):?? Stable, 3.4 cm she should continue outpatient follow-up with PCP??and vascular surgery ?? Atrial fibrillation, chronic (I48.20):?? She is not on anticoagulation chronically Not on any rate control medications or AV joseph blocking agents reportedly had episode of Afib with RVR at outside hospital Continue hydration for now??since she does appear significantly dehydrated Tele sinus with PACs ?? COPD without exacerbation (J44.9):?? On 3 L of oxygen at home currently stable does not appear to be in exacerbation, on home 3L Continue home??atrovent, montelukast ?? Hypertension (I10):?? hold lasix and HCTZ, BP overall well controlled resumed amlodpine on dc ?? Hypothyroid (E03.9):??Continue home levothyroxine as ordered ?? Nausea and vomiting (R11.2):??Now resolved, unclear etiology, viral gastroenteritis? Hypokalemia: resolved with repletion ?? Stenosis of carotid artery (I65.29):??Continue aspirin, statin appears to have been discontinued?Antithrombotic Therapy by End of Hospital Day 2:??Antithrombotic ordered ?? Compression fracture of vertebra (M48.50XA):??Old plus new T11 however no new neurological deficitson limited exam, likely from recent fall d/w neurosurgery who reviewed imaging- fracture is NOT NEW, nothing to do Patient is not reporting any pain at this time??however if she should??report then could consider adding some analgesics PCP follow up ? Code Status:??DNR/DNI ?Order Code Status:??Code Status Ordered ? Measurements?? Height: 168 cm (11/08/23) Weight: 65.3 kg (11/06/23) Dry Weight: 65.3 kg (11/06/23) Body Mass Index: 23.14 kg/m2 (11/06/23) ? Vital Signs?? Temperature: 98.2 DegF (11/08/23 07:29:00) Temperature Route: Oral (11/08/23 07:29:00) Pulse Rate: 89 bpm (11/08/23 07:29:00) Respiratory Rate: 18 br/min (11/08/23 09:57:00) Systolic Blood Pressure: 136 mm Hg (11/08/23 07:29:00) Diastolic Blood Pressure: 74 mm Hg (11/08/23 07:29:00) Blood pressure sites: Arm, left (11/08/23 07:29:00) Mean Arterial Pressure: 95 mm Hg (11/08/23 07:29:00) Pulse Pressure: 62 mm Hg (11/08/23 07:29:00) Oxygen Saturation: 100 % (11/08/23 07:29:00) Liters per Minute: 3 L/min (11/08/23 07:29:00) Mode of Delivery (Oxygen): Nasal cannula (11/08/23 07:29:00) Early Warning Score: 0 (11/08/23 12:36:05) ? . Physical Exam Constitutional: Alert, in no acute distress. Respiratory: Clear to auscultation. No wheezing or crackles. No use of accessory muscles. ??On 3 L of nasal cannula oxygen Cardiovascular: S1S2 regular.?? Gastrointestinal: Abdomen soft, non-tender, non-distended. Normal bowel sounds. Extremities: No lower extremity pitting??edema. moving all extremities well Neurologic: AAOx2 to self and place but not to time, Speech normal.?? Moving bilateral upper and lower extremities spontaneously. no focal neuro deficits Skin: No rash. Psychiatric: Normal mood and affect Consultants NETWORK CONTROL OPERATOR Pending Results Blood Culture ordered on 11/07/2023 Blood Culture #2 ordered on 11/07/2023 Creatinine Urine ordered on 11/07/2023 Sodium Urine ordered on 11/07/2023 Urinalysis w/hold for Urine Culture ordered on 11/07/2023 Patient Education Titles WebMD Ignite Patient Education - What Is COPD??? WebMD Ignite Patient Education - Renal (Kidney) Insufficiency?? Follow-Up Appointments Added Follow Up ?Time Frame ?Comments Barrie ENRIQUEZ, Jayjay Patient Instructions please follow up with your PCP in the next week DO not take your lasix??and hydrochlorothiazide until??you see your PCP drink plenty of fluids ?? Home Health Face to Face *Denotes mandatory breen ?? *I certify that this patient is under my care and that I or an allowed non- physician working with me had a face to face encounter with the patient on this date:??11/08/2023 13:44 ?? 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 *Select the indications for the discipline/s that are being arranged for this patient. Nursing (select all that apply): [_] None [X_] Medication management (reconciliation, teaching)?? X[_] Chronic disease management?? [_] Wound care and treatment?? [_] Home safety evaluation [_] Administer SQ/IM/IV medications?? [_] Cath care?? [_] Drain care?? [_] Trach or GT care?? Other _ Occupation Therapy (select all that apply): [_] None [_] ADL Management [_] Fall prevention training [_] Energy conservation [_] Cognitive training Other _ Physical Therapy (select all that apply): [_] None [X_] Functional mobility training [_X] Home exercise program to strengthen [X_] Increase ROM?? [X_] Falls prevention training [_] Home maintenance program for chronic disease Other _ Speech Therapy (select all that apply): [_] None [_] Swallow evaluation and training [_] Speech and language training [_] Cognitive training to process, organize, and/or recall information Other _ ? *Homebound due to (select all that apply): [X_] Inability to leave home without assistance/supervision [_] Inability to ambulate without assistance [_] Pain [X_] Decreased strength and endurance [_X] Unsteady gait [_] Severe SOB and fatigue [_] Impaired transfers [_] Inability to negotiate stairs [_] Limited weight bearing [_] Mental status change? *Physician Signature:??Ruth Chow DO ?? *By signing this, I certify that I have personally evaluated the patient and agree with the findings and recommendations as documented above. ? FTF Results Discharge Labs BLOOD COUNT & DIFF WBC 5.8 k/mm3 ()?? 11/08/2023 06:25 RBC 3.59 m/mm3 (Low)?? 11/08/2023 06:25 Hgb 11.2 Gm/dL (Low)?? 11/08/2023 06:25 Hct 34.6 % (Low)?? 11/08/2023 06:25 MCV 96.4 femtoliters ()?? 11/08/2023 06:25 MCH 31.2 pg ()?? 11/08/2023 06:25 MCHC 32.4 g/dL (Low)?? 11/08/2023 06:25 Platelet Count 230 k/mm3 ()?? 11/08/2023 06:25 RDW-SD 47.7 femtoliters (High)?? 11/08/2023 06:25 MPV 9.8 femtoliters ()?? 11/08/2023 06:25 Nucleated RBC (Automated) 0.0 #/100 WBC'S ()?? 11/08/2023 06:25 Abs. NRBC 0.0 k/mm3 ()?? 11/08/2023 06:25 ?? CHEM GENERAL Sodium 136 mmol/L ()?? 11/08/2023 06:25 Potassium 4.0 mmol/L ()?? 11/08/2023 06:25 Chloride 96 mmol/L (Low)?? 11/08/2023 06:25 Bicarbonate Level 31 mmol/L (High)?? 11/08/2023 06:25 Anion Gap 9 ()?? 11/08/2023 06:25 Glucose Level 102 mg/dL (High)?? 11/08/2023 06:25 BUN 10 mg/dL ()?? 11/08/2023 06:25 Creatinine-Blood 1.0 mg/dL ()?? 11/08/2023 06:25 Estimated GFR Creatinine 53 ML/MIN/1.73 M2 ()?? 11/08/2023 06:25 Calcium 8.7 mg/dL ()?? 11/08/2023 06:25 Magnesium 2.3 mg/dL ()?? 11/08/2023 06:25 ? ENDOCRINE/TUMOR MARKER CEA Monoclonal 6.4 ng/mL ()?? 11/06/2023 20:37 Canc Ant-125 11 units/mL ()?? 11/06/2023 20:37 CA19-9 20 U/mL ()?? 11/06/2023 20:37 ? MISC. CHEMISTRY Hold Gel Top SPECIMEN DISCARDED AFTER 1 WEEK ()?? 11/08/2023 06:25 ? URINE OTHER Est Creatinine Clearance 37.31 mL/min ()?? 11/08/2023 07:21 ? 45??minutes spent on discharge * Roselia Andrea RN: VERIFY, PERFORM, SIGN Event Display: Case Management Discharge Plan Authored Date: Patient: SUNSHINE CRESPO Age: 88 years Sex: Female : 1935 Associated Diagnoses: None Author: Roselia Andrea RN Discharge Plan Case Management Discharge Plan : Case Management Discharge Plan Data 11/08/2023 14:51 EDT Discharge Level of Care at Discharge [facility] facility Discharge Nursing Homes/Rehab Facilities [facility] Discharge Transportation Arranged [facility] [phone] [facility] Discharge Arranged Transport Date/Time 11/08/2023 17:30 Mode of Transportation Arranged Ambulance Agency Manager Investigations #1 admissions Service Categories #1 Occupational Therapy, Oxygen Therapy, Physical Therapy, Penitentiary, [facility] * Angélica Stone RN: PERFORM, MODIFY Event Display: Patient Education/Instruction Authored Date: Inpatient Adult Discharge Instructions. [address] [address] Name: SUNSHINE CRESPO : 1935?? Visit: 11/06/2023 16:49?? Current Date: 11/08/2023 16:35 ?? Account: [id number]?? Inpatient Adult Discharge Instructions We would like to thank you for allowing us to assist you with your healthcare needs. The following includes patient education materials and information regarding your injury/illness. Our entire staffstrives to provide an excellent experience for our patients and their families. PLEASE ENSURE YOU FOLLOW-UP PER THE INSTRUCTIONS BELOW! ?? YOUR OPINION IS IMPORTANT TO US! Please complete the survey you may receive by mail or email. Your feedback will be used to make improvements to the healthcare experiences of our patients and their families. Surveys are administered by [employer]. ?? If further treatment with your primary care physician or another doctor is recommended, it is important for you to keep the appointment. Call your primary care physician or return to the Emergency Department immediately if your condition worsens, fails to improve, or new symptoms develop. If you need to find a doctor, you can call [facility] for a referral at [phone] or toll free at [phone] ([phone]) or log in to [email or web address], [email or web address]..NEWLINE SOFTWARE.. ?? [facility], in keeping with [facility] guidance, no longer requires face masks for staff, patientsor visitors in most situations. Similiar to time spent indoors at other locations, there is the chance that you were exposed to repiratory viruses during your time with us (such as flu or COVID-19). If you develop symptoms concerning for a viral respiratory infection, please seek testing (and treatment if indicated) from your medical provider or home test kit. ?? You can view and manage your care through the patient portal or by using a health care dagoberto of your choosing. [employer] is a website that allows you to securely view your medical information including your hospital discharge summary, office visit summaries, medications and follow-up visits. You can also request appointments, renew medications, and request access to your medical information using a health care dagoberto of your choosing, or just ask a question. You can enroll at [email or web address] or register during your next office visit. You have been discharged from [facility], Patient Care Unit: W3??. If you have any questions regarding these instructions, including results of studies pending, afteryou leave, please call us and we will be happy to assist you 30/01. [facility] Your Care Team Attending Physician Ruth Chow DO?? Consulting Providers Ruth Chow DO?? Discharging Providers Ruth Chow DO Your Diagnosis Acute kidney injury Aortic aneurysm, abdominal Atrial fibrillation, chronic Compression fracture of vertebra COPD without exacerbation Hypertension Hypothyroid Nausea and vomiting Right tubo-ovarian mass Stenosis of carotid artery UTI (urinary tract infection) Tests Performed Below is a partial list of the tests performed during your hospitalization. You may have had other tests and procedures not included in this list. Please discuss all test results with your provider. Basic Metabolic Panel CA 125 CA 19-9 CBC CEA HOLD GEL TUBE Magnesium Level Blood Culture?? Blood Culture #2?? Creatinine Urine?? Sodium Urine?? Urinalysis w/hold for Urine Culture?? Primary Care Provider Jayjay Sood MD? Advance Directive Health Care Proxy on File No Patient refuses to discuss Patient has a Designated Caregiver: No Discharge Vitals Temperature: 98.2 DegF Height: 168 cm Pulse Rate: 89 bpm Weight: 65.3 kg Respiratory Rate: 18 br/min Body Mass Index: 23.14 kg/m2 Systolic Blood Pressure: 136 mm Hg Body surface area: 1.75 Diastolic Blood Pressure: 74 mm Hg ?? Oxygen Saturation: 100 % ?? Studies Pending All studies ordered during this hospital stay have been completed unless listed below. Please discuss all pending results with your provider listed above in these instructions. ?? Blood Culture?? Blood Culture #2?? Creatinine Urine?? Sodium Urine?? Urinalysis w/hold for Urine Culture?? What to do next Instructions From Your Doctor please follow up with your PCP in the next week DO not take your lasix??and hydrochlorothiazide until??you see your PCP drink plenty of fluids ? Orders? 11/08/23 14:54:00 EDT?? You Need to Schedule the Following Appointments Follow Up with??Jayjay Sood MD Where: [address] [place] [address]- Discharge Medications SUNSHINE CRESPO :[id number] Visit Date:11/06/2023 Medications: Please continue your medications until treatment is completed or stopped by your provider. Medications not listed below should be discontinued. Discuss any questions related to medications with your provider. What How Much When Instructions Next Dose Changed Amlodipine 5 Milligram Oral Daily 11/09/23 Unchanged Aspirin (Aspirin Tablet) 81 Milligram Oral Daily 11/09/23 Unchanged Famotidine (famotidine 20 mg oral tablet) 1 tab(s) Oral Twice a day 11/08/23?? 9pm Unchanged Gabapentin 300 Milligram Oral Twice a day 11/08/23 9 pm Unchanged Ipratropium (Atrovent HFA 17 mcg/ inh inhalation aerosol) 2 puff(s) Inhalation 4 times a day as needed for Wheezing/Shortness of Breath as needed for shortness of breath per instruction Unchanged Levothyroxine (levothyroxine 0.05 mg oral tablet) 1 tab(s) Oral Daily takes on sun/ / / sat ?? 11/09/23 Unchanged Levothyroxine (levothyroxine 0.075 mg oral tablet) 75 Microgram Oral mon/ mon/ mon ?? 11/10/23 Unchanged Magnesium Oxide (Mag-Ox 400 400 mg oral tablet) 1 tab(s) Oral Daily at Bedtime 11/08/23 bedtime Unchanged Montelukast (montelukast 10 mg oral tablet) 1 tab(s) Oral Daily in PM 11/08/23 9pm ?? What How Much When Comments Stop Taking Cholecalciferol (Vitamin D3) Oral Stop Taking Furosemide 20 Milligram Oral Daily Stop Taking Hydrochlorothiazide 12.5 Milligram Oral Daily Stop Taking Lorazepam (lorazepam 0.5 mg oral tablet) 0.5 tab(s) Oral Twice a day Stop Taking Multivitamin With Minerals (Ocuvite PreserVision oral tablet) 1 tab(s) Oral Daily Stop Taking Potassium Chloride Stop Taking Simvastatin (simvastatin 10 mg oral tablet) 1 tab(s) Oral Daily at Bedtime Stop Taking Tramadol (tramadol 50 mg oral tablet) 1 tab(s) Oral Every 4 hours Prescription Given During Visit No new medications prescribed at time of discharge.?? Laboratory Results Below is a partial list of the most recent Laboratory test results done prior to this discharge. You may have had other tests and procedures not included in this list. Please discuss all test resultswith your provider. Est Creatinine Clearance - 37.31 mL/min (11/08/2023) Basic Metabolic Panel (11/08/2023) ???Sodium - 136 mmol/L???Potassium - 4.0 mmol/L???Chloride - 96 mmol/L???Bicarbonate Level - 31 mmol/L???Anion Gap - 9???Glucose Level - 102 mg/dL???BUN - 10 mg/dL???Creatinine-Blood - 1.0 mg/dL???Estimated GFR Creatinine - 53 ML/MIN/1.73 M2???Calcium - 8.7 mg/dL CA 125 (11/06/2023) ???Canc Ant-125 - 11 units/mL CA 19-9 (11/06/2023) ???CA19-9 - 20 U/mL CBC (11/08/2023) ???WBC - 5.8 k/mm3???RBC - 3.59 m/mm3???Hgb - 11.2 Gm/dL???Hct - 34.6 %???MCV - 96.4 femtoliters???MCH - 31.2 pg???MCHC - 32.4 g/dL???Platelet Count - 230 k/mm3???RDW-SD - 47.7 femtoliters???MPV - 9.8 femtoliters???Nucleated RBC (Automated) - 0.0 #/100 WBC'S???Abs. NRBC - 0.0 k/mm3 CEA (11/06/2023) ???CEA Monoclonal - 6.4 ng/mL HOLD GEL TUBE (11/08/2023) ???Hold Gel Top - SPECIMEN DISCARDED AFTER 1 WEEK Magnesium Level (11/08/2023) ???Magnesium - 2.3 mg/dL Allergies (NKA means No Known Allergies) Vicodin codeine iodine Problems No qualifying data available Education Materials Below is the list of Educational Leaflet Providered with your Discharge Instructions. WebMD Ignite Patient Education - What Is COPD??? WebMD Ignite Patient Education - Renal (Kidney) Insufficiency?? Valuables and Belongings I fully understand and agree that [facility] accepts no responsibility for all my personal property including clothing, toilet articles, radios, jewelry, dentures, hearing aids, rings, money, or any other property that is in my possession or is brought to me after admission. I understand certain valuables may be placed in a hospital safe for a short period of time. I understand that the hospital is not liable for loss or damage due to accident, fire, or other natural occurrence while said property is in the safe. I accept full responsibility for any personal property that I keep with me, and will not hold the hospital responsible in case of loss or disappearance. I acknowledge that i have been encouraged to send valuables and belongings home. ?? Review of Valuable and Belonging List: With patient, With family Date for Pt to Sign Valuables/Belongings: 11/07/23 19:56:00 ?? Other Discharge Information ? Case Management Discharge Plan?? Discharge Plan?? Discharge Agency Information?? Discharge Level of Care at Discharge: [facility] facility Agency Manager Investigations #1: admissions Discharge Transportation Arranged: [facility] [address] [place] [address] ??[phone] Service Categories #1: Occupational Therapy, Oxygen Therapy, Physical Therapy, Penitentiary, V[facility] Global Mode of Transportation Arranged: Ambulance ?? Discharge Arranged Transport Date/Time: 11/08/23 17:30:00 ?? Discharge Nursing Homes/Rehab Facilities: [facility] ? Pulmonary Rehab Status?? Pulmonary Rehab Discharge Status?? Respiratory Rate: 18 br/min ? Common Emergency Awareness Tips IS IT A STROKE? Act FAST and Check for these signs: FACE Does the face look uneven? ARM Does one arm drift down? SPEECH Does their speech sound strange? TIME Call at any sign of stroke ?? Heart Attack Signs Chest discomfort: Most heart attacks involve discomfort in the center of the chest and lasts more than a few minutes, or goes away and comes back. It can feel like uncomfortable pressure, squeezing, fullness or pain. Discomfort in upper body: Symptoms can include pain or discomfort in one or both arms, back, neck, jaw or stomach. Shortness of breath: With or without discomfort. Other signs: Breaking out in a cold sweat, nausea, or lightheaded. Remember, MINUTES DO MATTER. If you experience any of these heart attack warning signs, call to get immediate medical attention! ?? Smoking can increase your chances of developing chronic health problems and can cause harmful effects to other family members in your house. If you smoke, you are strongly encouraged to quit. Please call [facility] at [phone] or [phone] ([phone]) or log in to [email or web address]..[email or web address] for referrals to smoking cessation programs. ?? 517 Suicide & Crisis Lifeline is available 30/01 if you or someone you know needs to find a reason to keep living. By calling 987 you'll be connected to a skilled, trained counselor at a crisis center in your area. INPATIENT DISCHARGE INSTRUCTIONS SIGNATURE PAGE SUNSHINE CRESPO Location:[facility] Registration Date and Time:11/06/2023 16:49 EDT Primary Care Physician: Jayjay Sood MD, Attending Physician: Ruth Chow DO, I SUNSHINE CRESPO, have received the above patient education materials/instructions and have verbalized understanding. If ambulance or transport services are being used I further acknowledge being given a choice of service. ?? If you need to contact me, please call me at this number: . Patient/Anvilsmith Name: Patient/Anvilsmith Signature: Relationship to Patient: Witness Name/Signature: Date: * Ruth Chow DO: PERFORM Event Display: Patient Education Leaflets Authored Date: [id number] What Is COPD? ?? [address]45 What Is COPD? COPD stands for chronic obstructive pulmonary disease. It means the airways in your lungs are blocked (obstructed). This makes it hard to breathe.??You may have trouble with daily activities because of shortness of breath. Over time, the shortness of breath often gets worse. This makes it harder totake care of yourself and take part in activities. Chronic bronchitis and emphysema are 2 common types of COPD. How did I get COPD? Most people get COPD from smoking. Cigarette smoke damages lungs. This can develop into COPD over many years. ?? How COPD affects you COPD makes you work harder to breathe. Air may get trapped in the lungs. This prevents your lungs from filling completely with fresh oxygen-filled air when you breathe in (inhale). It's harder to take deep breaths, especially when you are active and start breathing faster. Over time, your lungs maybecome enlarged, filled with air that does not transfer oxygen into the blood. These problems lead to shortness of breath (also called dyspnea). Hoarse, whistling breathing (wheezing) and a chronic cough are common. So is feeling tired and worn-out (fatigue).? What happens in chronic bronchitis? The??cells in the airways make more mucus than normal. The mucus builds up, narrowing the airways. This means less air travels into and out of the lungs. The lining of the airways may also become swollen (inflamed). This causes the airways to narrow even more. ?? What happens in emphysema? The small airways are damaged and??lose their stretchiness. The airways??collapse when you exhale. This causes air to get trapped in the air sacs.??So less oxygen enters the blood vessels. And less oxygen is delivered to all the cells of your body. This makes it hard to breathe. ?? Damage to cilia Cilia are small hairs that line and protect the airways. Smoking damages the cilia. Damaged cilia can???t sweep mucus and particles away. Some of the cilia are destroyed. This damage makes COPD worse. ?? How daily issues affect your health Many things in your daily life impact your health. This can include transportation, money problems,housing, access to food, and child development specialist. If you can???t get to medical appointments, you may not receive the care you need. When money is tight, it may be difficult to pay for medicines. And living far from a grocery store can make it hard to buy healthy food. If you have concerns in any of these or other areas, talk with your healthcare team. They may know of local resources to assist you. Or they may have a staff person who can help. ?? Last Reviewed Date: 2021 ?? 1475-5413 [employer]. All rights reserved. This information is not intended as a substitute for professional medical care. Always follow your healthcare professional's instructions. ?? * Ruth Chow DO: PERFORM Event Display: Patient Education Leaflets Authored Date: [id number] Renal (Kidney) Insufficiency ?? [id number] Renal (Kidney) Insufficiency Your kidneys remove waste products and extra water from your body. When your kidneys don???t work as they should, waste products build up in your blood.??The early stage of this process is called renal insufficiency.??If renal insufficiency gets worse, you can develop chronic renal failure. This??allows extra water, waste, and toxic substances to build up in your body. This can become life-threatening. You may need dialysis or a kidney transplant.??The most serious form of renal insufficiency is end-stage renal disease. Diabetes is the main cause of renal insufficiency.?? Other causes include: ??? High blood pressure ??? Hardening of the arteries ??? Lupus ??? Inflammation of the blood vessels (vasculitis) ??? Viral or bacterial infection Some vghs-owt-fnqrhvt (OTC) pain medicines can cause renal failure if you take them for a long time. These include aspirin, ibuprofen, naproxen, and other nonsteroidal anti-inflammatory drugs (NSAIDs). Home care Follow these tips when caring for yourself at home: ??? If you have diabetes, talk with your healthcare provider about controlling your blood sugar.??Ask if you need to make any changes to your diet,??lifestyle,??or medicines. ??? If you have high blood pressure: o Take your??prescribed medicine. Your goal is to lower your blood pressure to??less than 130/80, or as recommended by your provider. oStart a regular exercise program that you enjoy.??Check with your provider to be sure your planned exercise program is right for you. o Cut back on the amount of salt (sodium) you eat.??Your providercan tell you how much salt each day is safe for you. o Monitor and record your blood pressure at home on a regular schedule. Ask your provider to teach you how to correctly check your BP. Bring the BP records with you to your appointments. ??? If you are overweight, talk with your provider about a weight loss plan. ??? If you smoke, quit.??Smoking makes kidney disease worse.??Talk with your provider about ways to help you quit.??For more information, visit: o Clearing the Air: Quit Smoking Today, a booklet from the National Cancer [employer], at smokefree.gov/sites/default/files/pdf/thsxggqu-nyn-fvf-accessible.pdf o Tools, tips, and articles on quitting at www.smokefree.gov o The [place] [employer]'s guide to quitting smoking at www.cancer.org/healthy/stayawayfromtobacco/guidetoquittingsmoking/ ??? Talk with your healthcare provider about any restrictions you should make in your diet. In general, you should limit the amount of protein, salt, potassium, and phosphorus.??Don???t drink too many fluids. Don???t add salt at the table and stay away from salty foods.??You may need a calcium supplement to help prevent osteoporosis. ??? If you or your family feel overwhelmed by the dietary restrictions, ask for a referral to a registered dietitian. This person can help you understandand plan your diet. ??? Talk with your provider about any medicines you are currently taking to find out if they need to be reduced or stopped. ??? Before starting any ytmm-rmz-lyixjfp (OTC) medicines, herbal supplements, or vitamins, talk with your healthcare provider or pharmacist. Make sure theywon't harm your kidneys or interact with other medicines you take. ??? Don???t take the following OTC medicines. Or make sure to talk with your provider before you take them: o Aspirin, ibuprofen, naproxen, and other NSAIDs. You may be able to use these for a short time to help with fever or pain. o Laxatives and antacids with magnesium or aluminum o Phospho-soda enemas with phosphorus o Certain stomach acid-blocking medicine, such as cimetidine or ranitidine o Decongestants with pseudoephedrine o Herbal supplements ?? Follow-up care Follow up with your healthcare provider, or as advised.??Contact 1 of the groups below for more information: ??? [place] [employer] Patients at??www.aakp.org ??? National Kidney Foundation at www.kidney.org ??? [place] [employer] at www.kidneyfund.org ??? National Kidney Disease Education Program at www.nkdep.nih.gov ?? Call 911 Call 911 if any of these occur: ??? Severe weakness, dizziness, fainting, drowsiness, or confusion ??? Chest pain or shortness of breath ??? Heart beating fast, slowly, or irregularly ?? When to get medical care Call your healthcare provider right away??if any of these occur: ??? Upset stomach (nausea) or vomiting ??? Fever of 100.4??F (38??C) or higher, or as advised by your provider ??? Unexpected weight gain or swelling in the legs, ankles, or around your eyes ??? You don???t pee as much as normal, or you aren???t able to pee ??? New symptoms ?? Last Reviewed Date: 2022 ?? 1692-1847 [employer]. All rights reserved. This information is not intended as a substitute for professional medical care. Always follow your healthcare professional's instructions. ?? Patient Care team information Care Team Personnel Name: Jayjay Sood MD Position: [facility] Outreach Member Role: PCP Address: Address: [address] [place] [address] [place] [address]- Name: Angélica Stone RN Position: S RN Member Role: Primary Care Nurse Name: Donna Sena RN Position: S RN Member Role: Primary Care Nurse Name: Maurice Hsu RN Position: S RN Member Role: Primary Care Nurse Care Team Related Persons Name: PT, SAYS NONE LISTED
--- OUTSIDE RECORDS SUMMARY | 2024-03-05 16:17 | XMS_ITS | Patient Health Record ---
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, with unspecified presence of clinical manifestation (I70.203) Active confirmed Atherosclerosis of north fork arteries of the extremities ([id number]) PLAN OF TREATMENT Pending Test Test Name Order Date [id number] NAIL, 6 OR MORE 08/28/2020 [id number] SKIN LESIONS, 2 TO 4 08/28/19 21 Insurance Providers Payer Name Payer Address Payer Phone Subscriber Number Group Number Insured Name Patient Relationship to Insured Coverage Start Date Coverage End Date Medicare National [employer] [address] [facility] [place] [address] [id number] Vane Lim Self - patient is the insured MEDICAL (GENERAL) HISTORY Medical History History ICD Code Arthritis asthma Back,Hip,and Knee pain Cancer Headaches/Migraines High blood pressure Lung disease Numbness Poor circulation Measles Mumps Chicken pox Surgical History Surgery Date(Month/Year) tonsillectomy and adenoidectomy appendectomy hysterectomy
[2024-03-05 18:36] VITALS: BP 112/58; PULSE 124; RESP 19; O2SAT 94
[2024-03-05 19:57] VITALS: BP 96/78; PULSE 120; RESP 17; TEMP 37.1; O2SAT 93
--- NOTE | 2024-03-05 20:19 | MHC.EDTECH ---
Addendum entered by Cr Brody 03/05/24 20:56: pt had wet brief that was removed, elier care provided. pt reported needed to pee, given bed watson and unable to urinate. pt denies pain. bladder scan showed 225ml urine. MD made aware. verbal order for straight cath. pt in agreement and states only 1 try. Original Note: This tech bladder scanned the pt per RN. Bladder scan volume showed 225 mL. RN aware.
[2024-03-05] MEDS: Digoxin 0.5 MG/2 ML AMPUL 0.125 MG IVPUSH (21:12)
[2024-03-05 21:14] LABS: C Reactive Protein 9.01 mg/dL (< or = 0.50)
[2024-03-05 21:34] LABS: Appearance Urine Cloudy; Color Urine Yellow; Glucose Urine UA Negative (Negative); Leukocyte Esterase Urine Moderate (2+) (Negative); Nitrite Urine Negative (Negative); Specific Gravity - Urine 1.015 (1.005-1.025); UMIC TRIGGER UACC YES; Urine Blood Negative (Negative); Urine Ketones Negative (Negative); Urine Protein Trace mg/dL (Neg-Trace)
[2024-03-05 21:36] LABS: TSH reflex Free T4 1.04 uIU/mL (0.32-4.0)
[2024-03-05 21:39] LABS: Bacteria Urine 4+ (None Seen); RBC Urine 0-2 /HPF (0-2); UACC Culture Trigger YES; WBC Urine >50 /HPF (0-5)
--- NOTE | 2024-03-05 21:46 | PC.NURSE ---
pt ripped out iv. currently in CT scan. will reattempt upon return to room
[2024-03-05 21:47] LABS: VBG Base Excess 10.1 mmol/L; VBG HCO3 34 mmol/L (22-26); VBG pCO2 46 mmHg; VBG pH 7.48 (7.32-7.43); VBG pO2 48 mmHg
[2024-03-05 21:50] LABS: Venous Blood Gas Refer to POC result
[2024-03-05] MEDS: 0.9 % Sodium Chloride 500 ML IV (22:00)
[2024-03-05] MEDS: Acetaminophen 325 MG TABLET 650 MG PO (22:00)
--- NOTE | 2024-03-05 22:06 | PC.NURSE ---
new iv established to R. forearm. pt reports pain to R. arm where previous iv was pulled out, pt medicated with tylenol per request, no redness/bleeding/edema noted to R. arm. labs drawn. ivf and abx infusing per mar. call peters within reach.
[2024-03-05 22:08] LABS: Erythrocyte Sedimentation Rate 83 MM/HR (0-20)
[2024-03-05] MEDS: Gabapentin 300 MG CAPSULE PO (22:14)
[2024-03-05 22:19] VITALS: BP 122/104; PULSE 94; RESP 18; TEMP 36.9; O2SAT 94
[2024-03-05 22:27] LABS: Lactic Acid 1.1 mmol/L (0.5-2.0)
--- NOTE | 2024-03-05 22:37 | PM.IMHP ---
History of Present Illness Date of Service: 03/05/24 Chief Complaint: Altered mentation This is a 89-year-old female with pertinent history of chronic hypoxemic respiratory failure due to COPD on 2-3 L baseline supplemental oxygen, congestive heart failure with preserved ejection fraction, paroxysmal atrial fibrillation on anticoagulation, CAD with history of CA, hypertension, mixed hyperlipidemia, hypothyroidism, CKD stage 3 who was sent to the emergency department for evaluation of altered mentation. Unable to obtain history from the patient. She is only oriented to self at the time of my evaluation. Does not know why she is in the hospital. As per outside facility, patient was found to be agitated and hallucinating. Also complaining of generalized abdominal discomfort. In the emergency department, patient was found to be in AFib with RVR and given IV digoxin. Also urine concerning for UTI. Unable to obtain review of systems Review of Systems Review of Systems: Yes Unobtainable due to mental condition [facility] Medical History Adnexal mass Abdominal aortic aneurysm CKD (chronic kidney disease) stage 3, GFR 30-59 ml/min Myocardial infarction Hypothyroidism Hyperlipidemia COPD (chronic obstructive pulmonary disease) HTN (hypertension) PAF (paroxysmal atrial fibrillation) Family History Father History of heart disease Mother History of heart disease Social History Household Members: None Housing: [facility] Do you presently have visiting nurse or other home services: Yes Alcohol intake: never Comment: sitter present Patient Tobacco Use Status: Never used Tobacco Advance Directives: Yes Advance Directives on File: Yes Advance Directives Date on File: 10/16/23 Do you have a plan to hurt others: No Plan service: No Current occupational status: retired Meds Allergies Allergy/AdvReac Type Severity Reaction Status Date / Time adhesive tape [Adhesive Tape] Allergy Unknown RASH Verified 03/05/24 15:32 codeine [Codeine] Allergy Unknown SWELLING Verified 03/05/24 15:32 Iodinated Contrast Media Allergy Unknown UNKNOWN Verified 03/05/24 15:32 [IV Dye, Iodine Containing] iodine [Iodine] Allergy Unknown UNKNOWN Verified 03/05/24 15:32 oxycodone [Percocet] Allergy Unknown unknown Verified 03/05/24 15:32 papaya [Papaya] Allergy Unknown HIVES Verified 03/05/24 15:32 pineapple [Pineapple] Allergy Unknown HIVES Verified 03/05/24 15:32 strawberry [[place]] Allergy Unknown HIVES Verified 03/05/24 15:32 Codeine Phosphate Allergy Unknown unknown Uncoded 03/05/24 15:32 Novocain Allergy Unknown unknown Uncoded 03/05/24 15:32 From Vicodin AdvReac Unknown NAUSEA & Uncoded 03/05/24 15:32 VOMITING Active Medications: Current Medications Sodium Chloride (Ns) 500 mls @ 500 mls/hr IV .Q1H ONE Stop: 03/05/24 22:43 Last Admin: 03/05/24 22:00 Dose: 500 mls/hr Home Medications ?Medication ?Instructions ?Recorded ?Confirmed ?Last Taken ?Type gabapentin 300 mg capsule 300 mg PO BID Pain 07/13/20 12/07/23 12/20/22 History ipratropium bromide 17 2 puff inhalation QID PRN 07/13/20 12/07/23 12/20/22 History mcg/actuation HFA aerosol inhaler Shortness Of Breath levothyroxine 50 mcg tablet 50 mcg PO SUTUTHSA@0600 07/13/20 12/07/23 12/20/22 History magnesium oxide 400 mg (241.3 mg 400 mg PO BEDTIME 07/13/20 12/07/23 12/20/22 History magnesium) tablet famotidine 20 mg tablet 20 mg PO BID 12/21/22 12/07/23 12/20/22 History montelukast 10 mg tablet 10 mg PO BEDTIME 12/21/22 12/07/23 12/20/22 History multivitamin 1 tab PO DAILY 12/21/22 12/07/23 12/20/22 History amlodipine 5 mg tablet 5 mg PO BID 09/12/23 12/07/23 Unknown History furosemide 20 mg tablet 60 mg PO DAILY 09/28/23 12/07/23 11/22/23 History aspirin 81 mg capsule 81 mg PO DAILY 10/27/23 12/07/23 Unknown History ipratropium 0.5 mg-albuterol 3 mg 3 ml inhalation Q4H PRN Wheezing 10/27/23 12/07/23 Unknown History (2.5 mg base)/3 mL nebulization soln acetaminophen 325 mg tablet 650 mg PO Q8H PRN Fever Or Pain 11/06/23 12/07/23 Unknown History levothyroxine 75 mcg tablet 75 mcg PO MOWEFR@0600 11/22/23 12/07/23 Unknown History acetaminophen 650 mg-DM 20 mg/30 5 ml PO Q4H PRN Cough 12/07/23 12/07/23 Unknown History mL oral liquid (Coricidin HBP Max Ghtl-Avx-Rev(acet-DM)) bisacodyl 10 mg rectal suppository 10 mg NM DAILY PRN Constipation 12/07/23 12/07/23 Unknown History docusate sodium 100 mg capsule 100 mg PO DAILY Constipation 12/07/23 12/07/23 Unknown History (Col-Rite) magnesium hydroxide 400 mg/5 mL 30 ml PO DAILY PRN Constipation 12/07/23 12/07/23 Unknown History oral suspension (Milk of Magnesia) naloxone 4 mg/actuation nasal 4 mg intranasal Q3M PRN Opioid 12/07/23 12/07/23 Unknown History spray (Narcan) Overdose sodium phosphates 19 gram-7 118 ml NM DAILY PRN Constipation 12/07/23 12/07/23 Unknown History gram/118 mL enema (Fleet Enema) Physical Exam Vital Signs and Narrative: Vital Signs: Last Vital Signs Temp 98.4 F 03/05/24 22:19 Pulse 94 03/05/24 22:19 Resp 18 03/05/24 22:19 BP 122/104 H 03/05/24 22:19 Pulse Ox 94 03/05/24 22:19 O2 Del Method Nasal Cannula 03/05/24 22:19 O2 Flow Rate 2 03/05/24 22:19 BMI result Body Mass Index 19.4 Elderly female lying in bed no distress on supplemental oxygen Neck supple, no JVD Regular rate and rhythm, S1-S2 heard Regular breath sounds bilaterally, no wheezing or crackles appreciated Abdomen soft nontender, no guarding, no rigidity Patient is awake, alert and oriented to self, disoriented to place, time and person ; no focal motor deficit Psych: Normal mood No pedal edema Results Labs 03/05/24 15:35 03/05/24 15:35 Labs: Laboratory Results - last 24 hr 03/05/24 03/05/24 03/05/24 15:35 15:43 21:25 MCV 91.4 MCH 30.5 MCHC 33.4 RDW 13.4 Plt Count 381 D MPV 9.4 Immature Gran % (Auto) 0.6 H Neut % (Auto) 68.7 Lymph % (Auto) 13.8 L Jones % (Auto) 11.7 H Eos % (Auto) 4.5 H Baso % (Auto) 0.7 Lymph # (Auto) 1.2 Jones # (Auto) 1.0 Eos # (Auto) 0.4 Baso # (Auto) 0.1 Abs Immat Gran (auto) 0.05 H Absolute Neuts (auto) 6.1 Absolute Nucleated RBC 0.000 Nucleated RBC % (auto) 0.0 ESR 83 H VBG pH VBG pCO2 VBG pO2 VBG HCO3 VBG O2 Saturation VBG Base Excess Anion Gap 15 Estim Creat Clear Calc 26.7 Estimated GFR 39 Random Glucose 105 Lactic Acid Calcium 9.4 D Magnesium 2.2 Total Bilirubin 0.3 Direct Bilirubin 0.2 AST 27 ALT 11 Alkaline Phosphatase 140 H Troponin I High Sens 7.7 D C-Reactive Protein 9.01 H Total Protein 7.1 Albumin 2.6 L Lipase 32 TSH 1.04 Urine Color Yellow Urine Appearance Cloudy Urine pH 6.0 Ur Specific [place] 1.015 Urine Protein Trace Urine Glucose (UA) Negative Urine Ketones Negative Urine Blood Negative Urine Nitrite Negative Ur Leukocyte Esterase Moderate (2+) H Urine RBC 0-2 Urine WBC >50 H Ur Squamous Epith Cells 3-5 Urine Bacteria 4+ Hyaline Casts 3-5 COVID-19 (GABE) Negative COVID-19 Clin Com See Note 03/05/24 03/05/24 21:31 21:59 MCV MCH MCHC RDW Plt Count MPV Immature Gran % (Auto) Neut % (Auto) Lymph % (Auto) Jones % (Auto) Eos % (Auto) Baso % (Auto) Lymph # (Auto) Jones # (Auto) Eos # (Auto) Baso # (Auto) Abs Immat Gran (auto) Absolute Neuts (auto) Absolute Nucleated RBC Nucleated RBC % (auto) ESR VBG pH 7.48 H VBG pCO2 46 VBG pO2 48 VBG HCO3 34 H VBG O2 Saturation 74.0 VBG Base Excess 10.1 Anion Gap Estim Creat Clear Calc Estimated GFR Random Glucose Lactic Acid 1.1 Calcium Magnesium Total Bilirubin Direct Bilirubin AST ALT Alkaline Phosphatase Troponin I High Sens C-Reactive Protein Total Protein Albumin Lipase TSH Urine Color Urine Appearance Urine pH Ur Specific [place] Urine Protein Urine Glucose (UA) Urine Ketones Urine Blood Urine Nitrite Ur Leukocyte Esterase Urine RBC Urine WBC Ur Squamous Epith Cells Urine Bacteria Hyaline Casts COVID-19 (GABE) COVID-19 Clin Com Imaging Radiologist's Impressions: Impressions Abdomen/Pelvis CT 03/05/24 15:53 IMPRESSION: * Large hiatal hernia. * Left upper lobe lingular opacity may reflect focal atelectasis, aspiration, or infection. Right anterior middle lobe opacity may reflect atelectasis or infection. * Aneurysmal dilation of the infrarenal abdominal aorta measuring up to 3.7 cm. Based on published guidelines in J Am Asya Radiol 2013; 10(10):789-794 and J Vasc Surg. 2018; 67:2-77, the recommendation for an abdominal aortic aneurysm with diameter 3.5-3.9 cm is follow-up every 2 years. * Redemonstration of 9 cm right adnexal cyst. Electronically signed by: Cecilia Siegel MD 03/05/2024 06:22 PM EDT RP Head CT 03/05/24 21:03 IMPRESSION: No acute intracranial abnormality including hemorrhage, mass effect, hydrocephalus, or acute territorial edematous infarction. Electronically signed by: Saul Trujillo MD 03/05/2024 10:11 PM EDT RP Assessment and Plan (1) Acute UTI: Status: Acute (2) Atrial fibrillation with RVR: Status: Acute (3) Acute metabolic encephalopathy: Status: Acute Plan This is a 89-year-old female with pertinent history of chronic hypoxemic respiratory failure due to COPD on 2-3 L baseline supplemental oxygen, congestive heart failure with preserved ejection fraction, paroxysmal atrial fibrillation on anticoagulation, CAD with history of CA, hypertension, mixed hyperlipidemia, hypothyroidism, CKD stage 3 who was sent to the emergency department for evaluation of altered mentation. #. Acute metabolic encephalopathy due to acute UTI: Does have a history of ESBL Klebsiella. Initiated empiric IV meropenem. Follow urine culture. Monitor mentation. No sepsis #. Right-sided pneumonia: On antibiotics as above #. Paroxysmal atrial fibrillation with RVR: Rate controlled with IV digoxin in the ER. Continue beta-mahamed and Eliquis #. Congestive heart failure with preserved EF: No exacerbation during admission. On furosemide #. Chronic hypoxemic respiratory failure due to COPD: No exacerbation during admission. Continue baseline supplemental oxygen and home inhalers #. Hypertension: Continue home antihypertensives #. Hypothyroidism: On Synthroid. TSH okay #. CAD: On aspirin. Not on high-intensity statin Med rec pending DVT prophylaxis: [place] Full code Admit as inpatient and will require two night minimum hospital stay for IV antibiotics, monitoring of mentation (as above), which is not possible in a lesser acute setting. Quality Stroke Does the patient have a stroke diagnosis?: No VTE Prior VTE?: No VTE Risk Level:: Medical - moderate - high VTE Device Contraindication: Treatment Not Indicated VTE Drug Contraindication: N/A - Med Ordered
[2024-03-05 23:48] LABS: Influenza A PCR NEGATIVE (Negative); Influenza B PCR NEGATIVE (Negative); Resp Syncy Virus RNA Qual PCR NEGATIVE (Negative); SARS COV2 PCR INHOUSE NEGATIVE (Negative)
[2024-03-06] VITALS (8 sets, daily range): BP systolic 111–179; BP diastolic 57–96; PULSE 78–96; RESP 12–21; TEMP 36.4–37.3; O2SAT 90–98; BMI 18.0
--- NOTE | 2024-03-06 05:58 | MHC.EDTECH ---
morning rounds done. vital signs taken, pt belonging list complete. pt clean and dry.
[2024-03-06 06:12] LABS: MANUAL DIFF FLAG NO
[2024-03-06 06:20] LABS: Basophils Percent Auto 0.6 % (0-2); Eosinophils Absolute Auto 0.1 X10*3/uL (0.0-0.4); Eosinophils Percent Auto 1.9 % (0-4); Hematocrit 32.6 % (37.0-47.0); Hemoglobin 10.7 g/dl (12.0-16.0); Imm Gran Abs Auto 0.04 X10*3/uL (0.00-0.03); Imm Gran Pct Auto 0.6 % (0.0-0.4); Lymphocytes Percent Auto 13.9 % (20-40); Mean Corpuscular HGB Conc 32.8 g/dl (31.0-35.0); Mean Corpuscular Hemoglobin 30.4 pg (27.0-33.0); Mean Corpuscular Volume 92.6 fL (80.0-98.0); Mean Platelet Volume 9.6 fL (9.4-12.3); Monocytes Absolute Auto 0.8 X10*3/uL (0.1-1.2); Monocytes Percent Auto 11.6 % (2-11); Neutrophils Absolute Auto 4.9 x10*3/uL (2.0-8.3); Neutrophils Percent Auto 71.4 % (45-73); Platelet Count 382 X10*3/uL (160-400); Red Blood Count 3.52 X10*6/uL (4.20-5.50); Red Cell Distribution Width 13.3 % (11.0-16.0); White Blood Count 6.8 X10*3/uL (4.8-10.8)
[2024-03-06 06:29] LABS: Anion Gap 13 (12-20); Blood Urea Nitrogen 24 mg/dL (9-16); Calcium 8.9 mg/dL (8.4-10.2); Carbon Dioxide 28 mmol/L (22-29); Chloride 101 mmol/L (96-108); Creatinine Clr Calc Pharmacy 32.5; Estimated Glomerular Filt Rate 49; Glucose Random 91 mg/dL (60-115); Potassium 3.7 mmol/L (3.3-5.1); Sodium 138 mmol/L (135-145)
--- NOTE | 2024-03-06 07:52 | HO.PM.IMPN ---
Subjective Subjective Date of Service: 03/06/24 Interval History: Seen in follow up for UTI, encephalopathy Interval history: Pt awake, agitated. Tells me her name otherwise disoriented. Vitals stable. No specific complaints Review of Systems Review of Systems: Yes Unobtainable due to mental status Physical Exam Vital Signs: Vital Signs: Last Vital Signs Temp 97.5 F 03/06/24 05:43 Pulse 84 03/06/24 06:03 Resp 16 03/06/24 06:03 BP 129/77 03/06/24 06:03 Pulse Ox 98 03/06/24 06:03 O2 Del Method Nasal Cannula 03/06/24 06:03 O2 Flow Rate 2 03/06/24 06:03 BMI result Body Mass Index 19.4 Constitutional - Awake and Alert, No apparent distress Eyes - PERRLA, EOMI Cardiovascular - S1S2, RRR, No edema Respiratory - Normal lung expansion, Normal respiratory effort, No respiratory distress, CTA bilaterally Gastrointestinal - NT / ND; +BS; No rebound or guarding Extremities - no calf tenderness bilaterally, no swelling Skin - Warm/Dry Neurological - Alert & oriented x3 Psychological - Appropriate affect Objective Data Active Medications Acetaminophen (Acetaminophen 325 Mg Tablet) 650 mg PO Q6H PRN PRN Reason: Pain, Mild (Pain Scale 1-3), fever or headache Calcium Carbonate (Calcium Carbonate 750 Mg Tab.Chew) 750 mg PO Q4H PRN PRN Reason: Heartburn Meropenem 1 gm/ Sodium (Chloride) 100 mls @ 200 mls/hr IV Q12H TOBI Magnesium Hydroxide (Milk Of Magnesia 30 Ml Oral.Susp) 30 ml PO DAILY PRN PRN Reason: Constipation Melatonin (Melatonin 3 Mg Tablet) 6 mg PO BEDTIME PRN PRN Reason: Insomnia Ondansetron HCl (Ondansetron Hcl 4 Mg/2 Ml Vial) 4 mg IVPUSH Q8H PRN PRN Reason: Nausea and Vomiting Sodium Chloride (0.9 % Sodium Chloride Flush 3 Ml Syringe) 3 ml IVFLUSH QSHIFT [facility] Last Admin: 03/06/24 01:27 Dose: Not Given Documented By: ALEXIS Non-Admin Reason: Patient Asleep Labs 03/06/24 05:35 03/06/24 05:35 Labs: Laboratory Results - last 24 hr 03/05/24 03/05/24 03/05/24 15:35 15:43 21:25 MCV 91.4 MCH 30.5 MCHC 33.4 RDW 13.4 Plt Count 381 D MPV 9.4 Immature Gran % (Auto) 0.6 H Neut % (Auto) 68.7 Lymph % (Auto) 13.8 L [place] % (Auto) 11.7 H Eos % (Auto) 4.5 H Baso % (Auto) 0.7 Lymph # (Auto) 1.2 [place] # (Auto) 1.0 Eos # (Auto) 0.4 Baso # (Auto) 0.1 Abs Immat Gran (auto) 0.05 H Absolute Neuts (auto) 6.1 Absolute Nucleated RBC 0.000 Nucleated RBC % (auto) 0.0 ESR 83 H VBG pH VBG pCO2 VBG pO2 VBG HCO3 VBG O2 Saturation VBG Base Excess Anion Gap 15 Estim Creat Clear Calc 26.7 Estimated GFR 39 Random Glucose 105 Lactic Acid Calcium 9.4 D Magnesium 2.2 Total Bilirubin 0.3 Direct Bilirubin 0.2 AST 27 ALT 11 Alkaline Phosphatase 140 H Troponin I High Sens 7.7 D C-Reactive Protein 9.01 H Total Protein 7.1 Albumin 2.6 L Lipase 32 TSH 1.04 Urine Color Yellow Urine Appearance Cloudy Urine pH 6.0 Ur Specific [place] 1.015 Urine Protein Trace Urine Glucose (UA) Negative Urine Ketones Negative Urine Blood Negative Urine Nitrite Negative Ur Leukocyte Esterase Moderate (2+) H Urine RBC 0-2 Urine WBC >50 H Ur Squamous Epith Cells 3-5 Urine Bacteria 4+ Hyaline Casts 3-5 COVID-19 (GABE) Negative COVID-19 Clin Com See Note Influenza Type A (PCR) Influenza Type B (PCR) RSV RNA Qual (PCR) SARS-CoV-2 RNA (RT-PCR) 03/05/24 03/05/24 03/05/24 21:31 21:59 23:06 MCV MCH MCHC RDW Plt Count MPV Immature Gran % (Auto) Neut % (Auto) Lymph % (Auto) [place] % (Auto) Eos % (Auto) Baso % (Auto) Lymph # (Auto) [place] # (Auto) Eos # (Auto) Baso # (Auto) Abs Immat Gran (auto) Absolute Neuts (auto) Absolute Nucleated RBC Nucleated RBC % (auto) ESR VBG pH 7.48 H VBG pCO2 46 VBG pO2 48 VBG HCO3 34 H VBG O2 Saturation 74.0 VBG Base Excess 10.1 Anion Gap Estim Creat Clear Calc Estimated GFR Random Glucose Lactic Acid 1.1 Calcium Magnesium Total Bilirubin Direct Bilirubin AST ALT Alkaline Phosphatase Troponin I High Sens C-Reactive Protein Total Protein Albumin Lipase TSH Urine Color Urine Appearance Urine pH Ur Specific [place] Urine Protein Urine Glucose (UA) Urine Ketones Urine Blood Urine Nitrite Ur Leukocyte Esterase Urine RBC Urine WBC Ur Squamous Epith Cells Urine Bacteria Hyaline Casts COVID-19 (GABE) COVID-19 Clin Com Influenza Type A (PCR) NEGATIVE Influenza Type B (PCR) NEGATIVE RSV RNA Qual (PCR) NEGATIVE SARS-CoV-2 RNA (RT-PCR) NEGATIVE 03/06/24 05:35 MCV 92.6 MCH 30.4 MCHC 32.8 RDW 13.3 Plt Count 382 MPV 9.6 Immature Gran % (Auto) 0.6 H Neut % (Auto) 71.4 Lymph % (Auto) 13.9 L [place] % (Auto) 11.6 H Eos % (Auto) 1.9 Baso % (Auto) 0.6 Lymph # (Auto) 1.0 L [place] # (Auto) 0.8 Eos # (Auto) 0.1 Baso # (Auto) 0.0 Abs Immat Gran (auto) 0.04 H Absolute Neuts (auto) 4.9 Absolute Nucleated RBC 0.000 Nucleated RBC % (auto) 0.0 ESR VBG pH VBG pCO2 VBG pO2 VBG HCO3 VBG O2 Saturation VBG Base Excess Anion Gap 13 Estim Creat Clear Calc 32.5 Estimated GFR 49 Random Glucose 91 Lactic Acid Calcium 8.9 Magnesium Total Bilirubin Direct Bilirubin AST ALT Alkaline Phosphatase Troponin I High Sens C-Reactive Protein Total Protein Albumin Lipase TSH Urine Color Urine Appearance Urine pH Ur Specific [place] Urine Protein Urine Glucose (UA) Urine Ketones Urine Blood Urine Nitrite Ur Leukocyte Esterase Urine RBC Urine WBC Ur Squamous Epith Cells Urine Bacteria Hyaline Casts COVID-19 (GABE) COVID-19 Clin Com Influenza Type A (PCR) Influenza Type B (PCR) RSV RNA Qual (PCR) SARS-CoV-2 RNA (RT-PCR) Assessment and Plan (1) Pneumonia: Status: Acute (2) Acute metabolic encephalopathy: Status: Acute (3) Acute UTI: Status: Acute Plan 89-year-old female with pertinent history of chronic hypoxemic respiratory failure due to COPD on 2-3 L baseline supplemental oxygen, congestive heart failure with preserved ejection fraction, paroxysmal atrial fibrillation on anticoagulation, CAD with history of [place], hypertension, mixed hyperlipidemia, hypothyroidism, CKD stage 3 admitted for further management of acute metabolic encephalopathy related to UTI and possible right-sided pneumonia #Acute metabolic encephalopathy due to acute UTI -No sepsis -Hx ESBL Klebsiella. Continue meropenam (initiated 03/05) -Follow cultures, monitor mentation #Right-sided pneumonia -antibiotics as above -symptomatic management -sputum culture, strep pneumo antigen, Legionella antigen -no sepsis #Paroxysmal atrial fibrillation with RVR -Rate controlled with IV digoxin in the ER -continue Eliquis for anticoagulation, metoprolol for rate #Congestive heart failure with preserved EF -no acute exacerbation, continue p.o. diuretics #Chronic hypoxemic respiratory failure due to COPD -no acute exacerbation. Continue home O2. Continue maintenance inhalers, albuterol p.r.n. #Hypertension -continue metoprolol, amlodipine, Lasix, hydralazine # hypothyroidism -continue levothyroxine #CAD -continue ASA, not on statin. Continue beta-mahamed DVT prophylaxis: Eliquis Full code Patient requires ongoing inpatient stay due to UTI with metabolic encephalopathy with history of ESBL Klebsiella requiring IV meropenem and final cultures Quality Stroke Does the patient have a stroke diagnosis?: No VTE Prior VTE?: No VTE Risk Level:: Medical - moderate - high VTE Device Contraindication: Treatment Not Indicated VTE Drug Contraindication: N/A - Med Ordered
[2024-03-06] MEDS: 0.9 % Sodium Chloride Flush 3 ML SYRINGE IVFLUSH ×2 (08:40→23:31)
--- NOTE | 2024-03-06 08:58 | MHC.CM.PN ---
Patient is oriented to person only; CM left a detailed message for Granddaughter/HCP/Kelley, addressing the IMM (original will be mailed certified letter to Kelley and a copy will be placed on the chart). Patient is LTC and a [facility] bed hold at [facility] and the goal is to return there once medically stable. CM has initiated and will follow for dc planning.
--- NOTE | 2024-03-06 09:50 | PHA.MEDREC ---
Addendum entered by Barrie Emery RPh 03/06/24 10:05: med rec checked by [facility] Original Note: Pharmacy Consult ? Medication Reconciliation Pharmacy has completed the medication reconciliation. Utilized med list from [facility] to confirm med list
[2024-03-06] MEDS: hydrALAZINE HCl 25 MG TABLET PO ×2 (13:53→21:24)
[2024-03-06] MEDS: Metoprolol Succinate ER 25 MG TAB.ER.24H PO (13:53)
[2024-03-06] MEDS: guaiFENesin 100 MG/5 ML LIQUID 10 ML PO ×2 (13:53→21:45)
[2024-03-06] MEDS: Famotidine 20 MG TABLET PO (21:23)
[2024-03-06] MEDS: amLODIPine Besylate 5 MG TABLET PO (21:24)
[2024-03-06] MEDS: Apixaban 2.5 MG TABLET PO (21:24)
[2024-03-06] MEDS: Montelukast Sodium 10 MG TABLET PO (21:24)
[2024-03-06] MEDS: Mirtazapine 7.5 MG TABLET PO (21:24)
[2024-03-06] MEDS: Magnesium Oxide 400 MG TABLET PO (21:25)
[2024-03-06] MEDS: Gabapentin 300 MG CAPSULE PO (21:25)
[2024-03-06] MEDS: Melatonin 3 MG TABLET 6 MG PO (21:25)
[2024-03-06] MEDS: Potassium Chloride ER 20 MEQ TAB.ER.PRT PO (21:30)
[2024-03-07] VITALS (7 sets, daily range): BP systolic 118–141; BP diastolic 68–78; PULSE 76–112; RESP 18–21; TEMP 36.4–37.2; O2SAT 92–99; BMI 18.0
[2024-03-07] MEDS: Levothyroxine Sodium 50 MCG TABLET PO (06:02)
[2024-03-07] MEDS: guaiFENesin 100 MG/5 ML LIQUID 10 ML PO ×3 (06:02→23:11)
--- NOTE | 2024-03-07 07:32 | PC.NURSE ---
Assumed care of patient since 1844 on 03/06/24. Patient is AAOX2. Remains calm and cooperative. Medications taken whole with water. Assisted with incontinence care. Urine specimen sent for Urine legionella. External catheter in place. Bed alarm activated. Afib on cover marker.. No injury reported.
[2024-03-07] MEDS: Docusate Sodium 100 MG CAPSULE PO (09:40)
[2024-03-07] MEDS: amLODIPine Besylate 5 MG TABLET PO ×2 (09:40→20:14)
[2024-03-07] MEDS: Multivitamin TABLET 1 TAB PO (09:40)
[2024-03-07] MEDS: Gabapentin 300 MG CAPSULE PO ×2 (09:40→20:14)
[2024-03-07] MEDS: hydrALAZINE HCl 25 MG TABLET PO ×3 (09:40→20:13)
[2024-03-07] MEDS: Potassium Chloride ER 20 MEQ TAB.ER.PRT PO ×2 (09:40→20:13)
[2024-03-07] MEDS: Metoprolol Succinate ER 25 MG TAB.ER.24H PO (09:40)
[2024-03-07] MEDS: Ascorbic Acid 500 MG TABLET PO (09:40)
[2024-03-07] MEDS: Aspirin Enteric Coated 81 MG TABLET.DR PO (09:40)
[2024-03-07] MEDS: Apixaban 2.5 MG TABLET PO ×2 (09:40→20:34)
[2024-03-07] MEDS: polyethylene glycoL 3350 17 GM POWD.PACK PO (09:41)
[2024-03-07] MEDS: Ferrous Sulfate 324 MG TABLET.DR PO (09:41)
[2024-03-07] MEDS: Furosemide 20 MG TABLET 60 MG PO (09:41)
[2024-03-07] MEDS: Famotidine 20 MG TABLET PO ×2 (09:41→20:14)
--- NOTE | 2024-03-07 10:38 | P.PNIM_ITS ---
Subjective Subjective Date of Service: 03/07/24 Interval History: Seen in follow up for UTI, encephalopathy Interval history: confused but no agiation Physical Exam 2 Vital Signs: Vital Signs: Last Vital Signs Temp 99.0 F 03/07/24 06:58 Pulse 80 03/07/24 06:58 Resp 18 03/07/24 06:58 BP 138/75 03/07/24 06:58 Pulse Ox 95 03/07/24 06:58 O2 Del Method Nasal Cannula 03/07/24 06:58 O2 Flow Rate 4 03/07/24 06:58 BMI result Body Mass Index 18.0 Constitutional - Awake and Alert, No apparent distress Cardiovascular - S1S2, RRR, No edema Respiratory - Normal lung expansion, Normal respiratory effort, No respiratory distress, CTA bilaterally Gastrointestinal - NT / ND; +BS; No rebound or guarding Extremities - no calf tenderness bilaterally, no swelling Skin - Warm/Dry Neurological - confused Psychological - flat affect Objective Data Active Medications Acetaminophen (Acetaminophen 325 Mg Tablet) 650 mg PO Q6H PRN PRN Reason: Pain, Mild (Pain Scale 1-3), fever or headache Albuterol/Ipratropium (Albuterol/Iprat 2.5/0.5mg 3 Ml Ampul.Neb) 3 ml INHALE Q4H PRN PRN Reason: Wheezing Amlodipine Besylate (Amlodipine Besylate 5 Mg Tablet) 5 mg PO BID [facility]; Protocol Last Admin: 03/07/24 09:40 Dose: 5 mg Documented By: ARCHIE Apixaban (Apixaban 2.5 Mg Tablet) 2.5 mg PO BID [facility] Last Admin: 03/07/24 09:40 Dose: 2.5 mg Documented By: ARCHIE Ascorbic Acid (Ascorbic Acid 500 Mg Tablet) 500 mg PO DAILY [facility] Last Admin: 03/07/24 09:40 Dose: 500 mg Documented By: ARCHIE Aspirin (Aspirin Enteric Coated 81 Mg Tablet.Dr) 81 mg PO DAILY [facility] Last Admin: 03/07/24 09:40 Dose: 81 mg Documented By: ARCHIE Bisacodyl (Bisacodyl 10 Mg Supp.Rect) 10 mg RI DAILY PRN PRN Reason: Constipation Calcium Carbonate (Calcium Carbonate 750 Mg Tab.Chew) 750 mg PO Q4H PRN PRN Reason: Heartburn Docusate Sodium (Docusate Sodium 100 Mg Capsule) 100 mg PO DAILY [facility] Last Admin: 03/07/24 09:40 Dose: 100 mg Documented By: ARCHIE Famotidine (Famotidine 20 Mg Tablet) 20 mg PO BID [facility] Last Admin: 03/07/24 09:41 Dose: 20 mg Documented By: ARCHIE Ferrous Sulfate (Ferrous Sulfate 324 Mg Tablet.) 324 mg PO DAILY [facility] Last Admin: 03/07/24 09:41 Dose: 324 mg Documented By: ARCHIE Furosemide (Furosemide 20 Mg Tablet) 60 mg PO DAILY [facility]; Protocol Last Admin: 03/07/24 09:41 Dose: 60 mg Documented By: ARCHIE Gabapentin (Gabapentin 300 Mg Capsule) 300 mg PO BID [facility] Last Admin: 03/07/24 09:40 Dose: 300 mg Documented By: ARCHIE Guaifenesin (Guaifenesin 100 Mg/5 Ml Liquid) 10 ml PO Q4H [facility] Last Admin: 03/07/24 09:40 Dose: 10 ml Documented By: ARCHIE Hydralazine HCl (Hydralazine Hcl 25 Mg Tablet) 25 mg PO TID [facility]; Protocol Last Admin: 03/07/24 09:40 Dose: 25 mg Documented By: ARCHIE Meropenem 1 gm/ Sodium (Chloride) 100 mls @ 200 mls/hr IV Q12H [facility] Last Infusion: 03/07/24 10:22 Dose: Infused Documented By: ARCHIE Ipratropium [place] (Ipratropium [place] 1 Puff/17 Mcg Inhaler) 2 puff INHALE Q6H PRN PRN Reason: Shortness Of Breath Levothyroxine Sodium (Levothyroxine Sodium 50 Mcg Tablet) 50 mcg PO SUTUTHSA@0600 [facility] Last Admin: 03/07/24 06:02 Dose: 50 mcg Documented By: DEAN Levothyroxine Sodium (Levothyroxine Sodium 75 Mcg Tablet) 75 mcg PO MOWEFR@0600 [facility] Magnesium Hydroxide (Milk Of Magnesia 30 Ml Oral.Susp) 30 ml PO DAILY PRN PRN Reason: Constipation Magnesium Oxide (Magnesium Oxide 400 Mg Tablet) 400 mg PO BEDTIME [facility] Last Admin: 03/06/24 21:25 Dose: 400 mg Documented By: DEAN Melatonin (Melatonin 3 Mg Tablet) 6 mg PO BEDTIME PRN PRN Reason: Insomnia Last Admin: 03/06/24 21:25 Dose: 6 mg Documented By: DEAN Metoprolol Succinate (Metoprolol Succinate Er 25 Mg Tab.Er.24h) 25 mg PO DAILY [facility]; Protocol Last Admin: 03/07/24 09:40 Dose: 25 mg Documented By: ARCHIE Mirtazapine (Mirtazapine 7.5 Mg Tablet) 7.5 mg PO BEDTIME [facility] Last Admin: 03/06/24 21:24 Dose: 7.5 mg Documented By: DEAN Montelukast Sodium (Montelukast Sodium 10 Mg Tablet) 10 mg PO BEDTIME [facility] Last Admin: 03/06/24 21:24 Dose: 10 mg Documented By: DEAN Multivitamins/Vitamin C (Multivitamin Tablet) 1 tab PO DAILY [facility] Last Admin: 03/07/24 09:40 Dose: 1 tab Documented By: ARCHIE Naloxone HCl (Naloxone Hcl Nasal 4 Mg [place]) 4 mg NOSTRILALT Q3M PRN PRN Reason: Opioid Overdose Ondansetron HCl (Ondansetron Hcl 4 Mg/2 Ml Vial) 4 mg IVPUSH Q8H PRN PRN Reason: Nausea and Vomiting Polyethylene Glycol (Polyethylene Glycol 3350 17 Gm Powd.Pack) 17 gm PO DAILY [facility] Last Admin: 03/07/24 09:41 Dose: 17 gm Documented By: ARCHIE Potassium Chloride (Potassium Chloride Er 20 Meq Tab.Er.Prt) 20 meq PO BID [facility] Last Admin: 03/07/24 09:40 Dose: 20 meq Documented By: ARCHIE Sodium Biphosphate/Sodium Phosphate (Sodium Phosphate,[place]-Dibasic 133 Ml Enema) 118 ml RI DAILY PRN PRN Reason: Constipation Sodium Chloride (0.9 % Sodium Chloride Flush 3 Ml Syringe) 3 ml IVFLUSH QSHIFT [facility] Last Admin: 03/07/24 07:25 Dose: Not Given Documented By: ARCHIE Non-Admin Reason: Previously Administered Labs 03/06/24 05:35 03/06/24 05:35 Microbiology Microbiology Results: Microbiology 03/05/24 21:57 Blood Culture - Preliminary Blood - Venous No growth after 24 hours. 03/05/24 21:59 Blood Culture - Preliminary Blood - Venous No growth after 24 hours. 03/05/24 21:40 Urine Culture - Preliminary Urine clean catch - Clean Catch Midstream Culture in progress. Assessment and Plan (1) Pneumonia: Status: Acute (2) Acute metabolic encephalopathy: Status: Acute (3) Acute UTI: Status: Acute Plan 89-year-old female with pertinent history of chronic hypoxemic respiratory failure due to COPD on 2-3 L baseline supplemental oxygen, congestive heart failure with preserved ejection fraction, paroxysmal atrial fibrillation on anticoagulation, CAD with history of [place], hypertension, mixed hyperlipidemia, hypothyroidism, CKD stage 3 admitted for further management of acute metabolic encephalopathy related to UTI and possible right-sided pneumonia #Acute metabolic encephalopathy due to acute UTI -No sepsis -Hx ESBL Klebsiella. Continue meropenam (initiated 03/05) -Follow cultures, monitor mentation #Right-sided pneumonia -antibiotics as above -sputum culture, strep pneumo antigen, Legionella antigen -no sepsis #Paroxysmal atrial fibrillation with RVR -Rate controlled with IV digoxin in the ER -continue Eliquis for anticoagulation, metoprolol for rate #Congestive heart failure with preserved EF -no acute exacerbation, continue p.o. diuretics #Chronic hypoxemic respiratory failure due to COPD -no acute exacerbation. Continue home O2. Continue maintenance inhalers, albuterol p.r.n. #Hypertension -continue metoprolol, amlodipine, Lasix, hydralazine # hypothyroidism -continue levothyroxine #CAD -continue ASA, not on statin. Continue beta-mahamed DVT prophylaxis: Eliquis Full code Patient requires ongoing inpatient stay due to UTI with metabolic encephalopathy with history of ESBL Klebsiella requiring IV meropenem and final cultures May transfer to med/surg Quality Stroke Does the patient have a stroke diagnosis?: No VTE Prior VTE?: No VTE Risk Level:: Medical - moderate - high VTE Device Contraindication: Treatment Not Indicated VTE Drug Contraindication: N/A - Med Ordered
--- NOTE | 2024-03-07 12:57 | P.CDIM_ITS ---
PROVIDER RESPONSE TEXT: To clarify, the appropriate diagnosis supported by the clinical indicators: Underweight QUERY TEXT: PHYSICIAN'S DOCUMENTATION REQUEST Date of Query: 03/07/2024 11:07 AM EDT Patient Name: SUNSHINE CRESPO Admit Date: 03/06/2024 Dear Timoteo Asher MD, A review of the medical record indicates additional documentation may be needed. Please review below and update the documentation accordingly. Clinical Indicators: Nursing assessment Height and Weight: Patient is Underweight with BMI 18 52kg If possible, please provide an associated diagnosis related to the abnormal BMI, such as: Underweight Cachexia Anorexia Other (explain) Clinically unable to determine (explain) Thank you, Marialuisa Martinez, CCS, CDIS Use of terms such as suspected, likely, concern for, or probable (associated with a specific diagnosi s that is being evaluated, monitored, or treated as if it exists) are acceptable and can be coded in the inpatient se tting, when documented at the time of discharge. Please use your independent medical judgment in providing your response. THIS QUERY IS PART OF THE PERMANENT MEDICAL RECORD
--- NOTE | 2024-03-07 15:05 | MHC.CLN ---
NUTRITION CHANGED DIET FROM CARDIAC TO REGULAR DUE TO ADVANCED AGE AND TO PROMOTE PO INTAKE. ADDING ENSURE TID TO PROVIDE 1050 KCALS, 60 G PROTEIN. QUALIFIES MODERATELY MALNOURISHED IN THE CONTEXT OF CHRONIC ILLNESS. SIGNIFICANT WEIGHT LOSS X 3 MONTHS -16%. SIGNIFICANT WEIGHT LOSS X ONE YEAR -27%. ENCOURAGE INTAKE ABLE. SEE CLINICAL NUTRITION ASSESSMENT 03/07/24.
[2024-03-07] MEDS: Montelukast Sodium 10 MG TABLET PO (20:14)
[2024-03-07] MEDS: Mirtazapine 7.5 MG TABLET PO (20:14)
[2024-03-07] MEDS: Magnesium Oxide 400 MG TABLET PO (20:14)
[2024-03-07] MEDS: Melatonin 3 MG TABLET 6 MG PO (20:16)
[2024-03-07] MEDS: 0.9 % Sodium Chloride Flush 3 ML SYRINGE IVFLUSH (23:11)
[2024-03-08] VITALS (7 sets, daily range): BP systolic 128–159; BP diastolic 65–88; PULSE 65–101; RESP 18–20; TEMP 36.2–36.6; O2SAT 95–100
[2024-03-08] MEDS: guaiFENesin 100 MG/5 ML LIQUID 10 ML PO (05:51)
[2024-03-08] MEDS: Levothyroxine Sodium 75 MCG TABLET PO (05:51)
--- NOTE | 2024-03-08 07:23 | PC.NURSE ---
Patient with blood tinged sputum and presence of scant amount of blood inside her nose noted this am around 0630. Patient has been on O2 @ 3l. Concern for dryness of nasal mucosa. Humidified O2 started. Hand off to day shift RN.
[2024-03-08 07:28] LABS: Hematocrit 33.6 % (37.0-47.0); Hemoglobin 11.2 g/dl (12.0-16.0); Mean Corpuscular HGB Conc 33.3 g/dl (31.0-35.0); Mean Corpuscular Hemoglobin 30.5 pg (27.0-33.0); Mean Corpuscular Volume 91.6 fL (80.0-98.0); Mean Platelet Volume 9.6 fL (9.4-12.3); Platelet Count 367 X10*3/uL (160-400); Red Blood Count 3.67 X10*6/uL (4.20-5.50); Red Cell Distribution Width 13.2 % (11.0-16.0); White Blood Count 9.1 X10*3/uL (4.8-10.8)
[2024-03-08 07:42] LABS: Anion Gap 10 (12-20); Blood Urea Nitrogen 16 mg/dL (9-16); Calcium 8.6 mg/dL (8.4-10.2); Carbon Dioxide 30 mmol/L (22-29); Chloride 97 mmol/L (96-108); Creatinine Clr Calc Pharmacy 29.5; Estimated Glomerular Filt Rate 48; Glucose Random 150 mg/dL (60-115); Potassium 3.4 mmol/L (3.3-5.1); Sodium 134 mmol/L (135-145)
[2024-03-08] MEDS: ondansetron HCL 4 MG/2 ML VIAL IVPUSH (08:36)
--- NOTE | 2024-03-08 10:20 | MHC.CLN ---
F/U DIET=REGULAR. ENSURE TID PROVIDES 1050 KCALS, 60 G PROTEIN. PO INTAKE 0-75%. SIGNIFICANT WEIGHT LOSS X 3 MONTHS -16%. SIGNIFICANT WEIGHT LOSS X ONE YEAR -27%. CONTINUE CURRENT DIET AND SUPPLEMENT. ENCOURAGE INTAKE ABLE.
--- NOTE | 2024-03-08 11:25 | MHC.CM.PN ---
EMR REVIEWED, PER HOSPITALIST PT WILL NEED IV ERTAPENEM X4WKS D/T UTI/KLEBSELLA, SNF UPDATED, CM WILL CONT TO FOLLOW DC NEEDS.
--- NOTE | 2024-03-08 11:29 | HO.PM.IMPN ---
Subjective Subjective Date of Service: 03/08/24 Interval History: pt is refusing to take meds by mouth Physical Exam Vital Signs: Vital Signs: Last Vital Signs Temp 97.8 F 03/08/24 11:06 Pulse 101 H 03/08/24 11:06 Resp 20 03/08/24 11:06 BP 153/71 H 03/08/24 11:06 Pulse Ox 95 03/08/24 11:06 O2 Del Method Nasal Cannula 03/08/24 11:06 O2 Flow Rate 4 03/08/24 11:06 BMI result Body Mass Index 18.0 Constitutional - Awake and Alert, No apparent distress Cardiovascular - S1S2, RRR, No edema Respiratory - Normal lung expansion, Normal respiratory effort, No respiratory distress, CTA bilaterally Gastrointestinal - NT / ND; +BS; No rebound or guarding Extremities - no calf tenderness bilaterally, no swelling Skin - Warm/Dry Neurological - confused Psychological - flat affect Objective Data Active Medications Acetaminophen (Acetaminophen 325 Mg Tablet) 650 mg PO Q6H PRN PRN Reason: Pain, Mild (Pain Scale 1-3), fever or headache Albuterol/Ipratropium (Albuterol/Iprat 2.5/0.5mg 3 Ml Ampul.Neb) 3 ml INHALE Q4H PRN PRN Reason: Wheezing Amlodipine Besylate (Amlodipine Besylate 5 Mg Tablet) 5 mg PO BID [facility]; Protocol Last Admin: 03/08/24 10:32 Dose: Not Given Documented By: ARCHIE Non-Admin Reason: Patient Refused Apixaban (Apixaban 2.5 Mg Tablet) 2.5 mg PO BID [facility] Last Admin: 03/08/24 10:33 Dose: Not Given Documented By: ARCHIE Non-Admin Reason: Patient Refused Ascorbic Acid (Ascorbic Acid 500 Mg Tablet) 500 mg PO DAILY [facility] Last Admin: 03/08/24 10:33 Dose: Not Given Documented By: ARCHIE Non-Admin Reason: Patient Refused Aspirin (Aspirin Enteric Coated 81 Mg Tablet.) 81 mg PO DAILY [facility] Last Admin: 03/08/24 10:33 Dose: Not Given Documented By: ARCHIE Non-Admin Reason: Patient Refused Bisacodyl (Bisacodyl 10 Mg Supp.Rect) 10 mg [place] DAILY PRN PRN Reason: Constipation Calcium Carbonate (Calcium Carbonate 750 Mg Tab.Chew) 750 mg PO Q4H PRN PRN Reason: Heartburn Docusate Sodium (Docusate Sodium 100 Mg Capsule) 100 mg PO DAILY [facility] Last Admin: 03/08/24 10:33 Dose: Not Given Documented By: ARCHIE Non-Admin Reason: Patient Refused Famotidine (Famotidine 20 Mg Tablet) 20 mg PO BID [facility] Last Admin: 03/08/24 10:33 Dose: Not Given Documented By: ARCHIE Non-Admin Reason: Patient Refused Ferrous Sulfate (Ferrous Sulfate 324 Mg Tablet.Dr) 324 mg PO DAILY [facility] Last Admin: 03/08/24 10:33 Dose: Not Given Documented By: ARCHIE Non-Admin Reason: Patient Refused Furosemide (Furosemide 20 Mg Tablet) 60 mg PO DAILY [facility]; Protocol Last Admin: 03/08/24 10:33 Dose: Not Given Documented By: ARCHIE Non-Admin Reason: Patient Refused Gabapentin (Gabapentin 300 Mg Capsule) 300 mg PO BID [facility] Last Admin: 03/08/24 10:33 Dose: Not Given Documented By: ARCHIE Non-Admin Reason: Patient Refused Guaifenesin (Guaifenesin 100 Mg/5 Ml Liquid) 10 ml PO Q4H [facility] Last Admin: 03/08/24 08:33 Dose: Not Given Documented By: ARCHIE Non-Admin Reason: Patient Refused Hydralazine HCl (Hydralazine Hcl 25 Mg Tablet) 25 mg PO TID [facility]; Protocol Last Admin: 03/08/24 10:31 Dose: Not Given Documented By: ARCHIE Non-Admin Reason: Patient Refused Meropenem 1 gm/ Sodium (Chloride) 100 mls @ 200 mls/hr IV Q12H [facility] Last Infusion: 03/08/24 08:53 Dose: Infused Documented By: ARCHIE Ipratropium [place] (Ipratropium [place] 1 Puff/17 Mcg Inhaler) 2 puff INHALE Q6H PRN PRN Reason: Shortness Of Breath Levothyroxine Sodium (Levothyroxine Sodium 50 Mcg Tablet) 50 mcg PO SUTUTHSA@0600 [facility] Last Admin: 03/07/24 06:02 Dose: 50 mcg Documented By: DEAN Levothyroxine Sodium (Levothyroxine Sodium 75 Mcg Tablet) 75 mcg PO MOWEFR@0600 [facility] Last Admin: 03/08/24 05:51 Dose: 75 mcg Documented By: DEAN Magnesium Hydroxide (Milk Of Magnesia 30 Ml Oral.Susp) 30 ml PO DAILY PRN PRN Reason: Constipation Magnesium Oxide (Magnesium Oxide 400 Mg Tablet) 400 mg PO BEDTIME [facility] Last Admin: 03/07/24 20:14 Dose: 400 mg Documented By: DEAN Melatonin (Melatonin 3 Mg Tablet) 6 mg PO BEDTIME PRN PRN Reason: Insomnia Last Admin: 03/07/24 20:16 Dose: 6 mg Documented By: DEAN Metoprolol Succinate (Metoprolol Succinate Er 25 Mg Tab.Er.24h) 25 mg PO DAILY [facility]; Protocol Last Admin: 03/08/24 10:33 Dose: Not Given Documented By: ARCHIE Non-Admin Reason: Patient Refused Mirtazapine (Mirtazapine 7.5 Mg Tablet) 7.5 mg PO BEDTIME [facility] Last Admin: 03/07/24 20:14 Dose: 7.5 mg Documented By: DEAN Montelukast Sodium (Montelukast Sodium 10 Mg Tablet) 10 mg PO BEDTIME [facility] Last Admin: 03/07/24 20:14 Dose: 10 mg Documented By: DEAN Multivitamins/Vitamin C (Multivitamin Tablet) 1 tab PO DAILY [facility] Last Admin: 03/08/24 10:33 Dose: Not Given Documented By: ARCHIE Non-Admin Reason: Patient Refused Naloxone HCl (Naloxone Hcl Nasal 4 Mg [place]) 4 mg NOSTRILALT Q3M PRN PRN Reason: Opioid Overdose Ondansetron HCl (Ondansetron Hcl 4 Mg/2 Ml Vial) 4 mg IVPUSH Q8H PRN PRN Reason: Nausea and Vomiting Last Admin: 03/08/24 08:36 Dose: 4 mg Documented By: ARCHIE Polyethylene Glycol (Polyethylene Glycol 3350 17 Gm Powd.Pack) 17 gm PO DAILY [facility] Last Admin: 03/08/24 10:31 Dose: Not Given Documented By: ARCHIE Non-Admin Reason: Patient Refused Potassium Chloride (Potassium Chloride Er 20 Meq Tab.Er.Prt) 20 meq PO BID [facility] Last Admin: 03/08/24 10:33 Dose: Not Given Documented By: ARCHIE Non-Admin Reason: Patient Refused Sodium Biphosphate/Sodium Phosphate (Sodium Phosphate,[place]-Dibasic 133 Ml Enema) 118 ml [place] DAILY PRN PRN Reason: Constipation Sodium Chloride (0.9 % Sodium Chloride Flush 3 Ml Syringe) 3 ml IVFLUSH QSHIFT [facility] Last Admin: 03/08/24 07:02 Dose: Not Given Documented By: ARCHIE Non-Admin Reason: Previously Administered Labs 03/08/24 06:33 03/08/24 06:33 Labs: Laboratory Results - last 24 hr 03/08/24 06:33 MCV 91.6 MCH 30.5 MCHC 33.3 RDW 13.2 Plt Count 367 MPV 9.6 Absolute Nucleated RBC 0.000 Nucleated RBC % (auto) 0.0 Anion Gap 10 L Estim Creat Clear Calc 29.5 Estimated GFR 48 Random Glucose 150 H Calcium 8.6 Microbiology Microbiology Results: Microbiology 03/05/24 21:40 Urine Culture - Final Urine clean catch - Clean Catch Midstream Klebsiella aerogenes 03/05/24 21:59 Blood Culture - Preliminary Blood - Venous No growth after 48 hours. 03/05/24 21:57 Blood Culture - Preliminary Blood - Venous No growth after 48 hours. Assessment and Plan (1) Pneumonia: Status: Acute (2) Acute metabolic encephalopathy: Status: Acute (3) Acute UTI: Status: Acute Plan 89-year-old female with pertinent history of chronic hypoxemic respiratory failure due to COPD on 2-3 L baseline supplemental oxygen, congestive heart failure with preserved ejection fraction, paroxysmal atrial fibrillation on anticoagulation, CAD with history of DC, hypertension, mixed hyperlipidemia, hypothyroidism, CKD stage 3 admitted for further management of acute metabolic encephalopathy related to UTI and possible right-sided pneumonia #Acute metabolic encephalopathy due to acute UTI -No sepsis -Hx ESBL Klebsiella. Continue meropenam (initiated 03/05), can change to po levaquin but she's refusing po meds -Follow cultures, monitor mentation #Right-sided pneumonia -antibiotics as above -sputum culture, strep pneumo antigen, Legionella antigen -no sepsis #Paroxysmal atrial fibrillation with RVR -Rate controlled with IV digoxin in the ER -continue Eliquis for anticoagulation, metoprolol for rate #Congestive heart failure with preserved EF -no acute exacerbation, continue p.o. diuretics #Chronic hypoxemic respiratory failure due to COPD -no acute exacerbation. Continue home O2. Continue maintenance inhalers, albuterol p.r.n. #Hypertension -continue metoprolol, amlodipine, Lasix, hydralazine # hypothyroidism -continue levothyroxine #CAD -continue ASA, not on statin. Continue beta-mahamed DVT prophylaxis: Eliquis Full code Patient requires ongoing inpatient stay due to UTI with metabolic encephalopathy with history of ESBL Klebsiella requiring IV meropenem and final cultures May transfer to med/surg Quality Stroke Does the patient have a stroke diagnosis?: No VTE Prior VTE?: No VTE Risk Level:: Medical - moderate - high VTE Device Contraindication: Treatment Not Indicated VTE Drug Contraindication: N/A - Med Ordered
[2024-03-08] MEDS: Apixaban 2.5 MG TABLET PO (22:11)
[2024-03-08] MEDS: amLODIPine Besylate 5 MG TABLET PO (22:11)
[2024-03-08] MEDS: Magnesium Oxide 400 MG TABLET PO (22:11)
[2024-03-08] MEDS: Mirtazapine 7.5 MG TABLET PO (22:11)
[2024-03-08] MEDS: Melatonin 3 MG TABLET 6 MG PO (22:11)
[2024-03-08] MEDS: hydrALAZINE HCl 25 MG TABLET PO (22:12)
[2024-03-08] MEDS: Montelukast Sodium 10 MG TABLET PO (22:12)
[2024-03-08] MEDS: Famotidine 20 MG TABLET PO (22:12)
[2024-03-08] MEDS: Gabapentin 300 MG CAPSULE PO (22:12)
[2024-03-08] MEDS: 0.9 % Sodium Chloride Flush 3 ML SYRINGE IVFLUSH (22:13)
[2024-03-08] MEDS: Potassium Chloride ER 20 MEQ TAB.ER.PRT PO (22:13)
[2024-03-09 03:13] VITALS: BP 133/68; PULSE 98; RESP 20; TEMP 36.5; O2SAT 96
[2024-03-09] MEDS: Levothyroxine Sodium 50 MCG TABLET PO (06:01)
[2024-03-09 06:33] LABS: Hematocrit 33.4 % (37.0-47.0); Hemoglobin 11.1 g/dl (12.0-16.0); Mean Corpuscular HGB Conc 33.2 g/dl (31.0-35.0); Mean Corpuscular Hemoglobin 30.5 pg (27.0-33.0); Mean Corpuscular Volume 91.8 fL (80.0-98.0); Mean Platelet Volume 9.6 fL (9.4-12.3); Platelet Count 342 X10*3/uL (160-400); Red Blood Count 3.64 X10*6/uL (4.20-5.50); Red Cell Distribution Width 13.2 % (11.0-16.0); White Blood Count 7.5 X10*3/uL (4.8-10.8)
[2024-03-09 07:48] VITALS: BP 141/82; PULSE 115; RESP 16; TEMP 36.6; O2SAT 95
[2024-03-09 09:12] VITALS: BP 141/82; PULSE 115
[2024-03-09] MEDS: Ascorbic Acid 500 MG TABLET PO (09:12)
[2024-03-09] MEDS: amLODIPine Besylate 5 MG TABLET PO (09:12)
[2024-03-09] MEDS: Gabapentin 300 MG CAPSULE PO (09:12)
[2024-03-09] MEDS: Aspirin Enteric Coated 81 MG TABLET.DR PO (09:12)
[2024-03-09] MEDS: Metoprolol Succinate ER 25 MG TAB.ER.24H PO (09:12)
[2024-03-09 09:13] VITALS: BP 141/82
[2024-03-09] MEDS: Apixaban 2.5 MG TABLET PO (09:13)
[2024-03-09] MEDS: Docusate Sodium 100 MG CAPSULE PO (09:13)
[2024-03-09] MEDS: Ferrous Sulfate 324 MG TABLET.DR PO (09:13)
[2024-03-09] MEDS: Famotidine 20 MG TABLET PO (09:13)
[2024-03-09] MEDS: hydrALAZINE HCl 25 MG TABLET PO ×2 (09:13→14:31)
[2024-03-09] MEDS: Potassium Chloride ER 20 MEQ TAB.ER.PRT PO (09:13)
[2024-03-09] MEDS: guaiFENesin 100 MG/5 ML LIQUID 10 ML PO ×2 (09:13→14:27)
[2024-03-09] MEDS: Multivitamin TABLET 1 TAB PO (09:13)
[2024-03-09] MEDS: 0.9 % Sodium Chloride Flush 3 ML SYRINGE IVFLUSH (09:14)
[2024-03-09 09:17] VITALS: BP 141/82
[2024-03-09] MEDS: Furosemide 20 MG TABLET 60 MG PO (09:17)
[2024-03-09] MEDS: polyethylene glycoL 3350 17 GM POWD.PACK PO (09:24)
[2024-03-09 11:29] VITALS: BP 120/70; PULSE 93; RESP 16; TEMP 36.8; O2SAT 98
--- NOTE | 2024-03-09 11:35 | MHC.CM.PN ---
Per MD,Patient is medically cleared for dc to return to [facility] today. Patient will return to [facility] today at 3PM, via [facility].CM left a detailed message for Granddaughter/HCP/Emely @ [phone], informing her of the dc plan and addressing the IMM (original will be mailed certified letter to [facility] and a copy has been placed on the chart).
--- NOTE | 2024-03-09 11:57 | PM.DS ---
DS: Providers Provider Date of Service: 03/09/24 Date of admission: 03/05/24 22:35 Primary care physician: Niels Israel MD DS: Diagnosis Discharge Diagnosis (1) Pneumonia: Status: Acute (2) Acute metabolic encephalopathy: Status: Acute (3) Acute UTI: Status: Acute DS: Summary Hospital Course Hospital Course: admission [facility] Complaint: Altered mentation This is a 89-year-old female with pertinent history of chronic hypoxemic respiratory failure due to COPD on 2-3 L baseline supplemental oxygen, congestive heart failure with preserved ejection fraction, paroxysmal atrial fibrillation on anticoagulation, CAD with history of [place], hypertension, mixed hyperlipidemia, hypothyroidism, CKD stage 3 who was sent to the emergency department for evaluation of altered mentation. Unable to obtain history from the patient. She is only oriented to self at the time of my evaluation. Does not know why she is in the hospital. As per outside facility, patient was found to be agitated and hallucinating. Also complaining of generalized abdominal discomfort. In the emergency department, patient was found to be in AFib with RVR and given IV digoxin. Also urine concerning for UTI. Unable to obtain review of systems Hospital course: She presented with altered mental status and work up revealed pneumonia and UTI, she has history of klebiseal ESBL and so was started on Meropenem to also treat a presumed right sided pneumonia. She is not hypxic. Urine culture showed Klebisiel with senstivity as follow K. aerogen M.I.C. RX --------- --- Ampicillin >=32 R Cefazolin >=64 R Cefepime <=0.12 S Ceftriaxone >=64 R Ertapenem <=0.12 S Gentamicin <=1 S Levofloxacin <=0.12 S Nitrofurantoin 32 S Trimethoprim/Sulfamethoxazole <=20 S she has been treated with Meropenem for 4 days now, her WBC have been nornmal, she afebrile, tolerating oral and will be transition to levauin at discharge. She will get Levaquin 500mg q48 given CrCl of 29, will get first dose in the hospital and repeat dose in 48 hrs making Acute metabolic encephalopathy due to acute UTI--underlying UTI treated as above and at baseline mental statu Right-sided pneum--treated with same antibiotics as before Paroxysmal atrial fibrillation-she had RVR in the ED treated with IV digoxin, her heart is now controlled on metoprolol and to continue anticoagulation with levaqui Congestive heart failure with preserved EF -no acute exacerbation, continue p.o. diuretics Chronic hypoxemic respiratory failure due to COPD -no acute exacerbation. Continue home O2. Continue maintenance inhalers, albuterol p.r.n. Hypertension -continue metoprolol, amlodipine, Lasix, hydralazine hypothyroidism -continue levothyroxine CAD -continue ASA, not on statin. Continue beta-mahamed To return to SNF Time Attestation Discharge Coordination Time (in mins): 45 Quality: Safe Use of Opioids Does Pt have an Active Cancer Diagnosis on the Problem List?: No Quality: Stroke Does the patient have a stroke diagnosis?: No Physical Exam Vital Signs: Vital Signs: Last Vital Signs Temp 98.3 F 03/09/24 11:29 Pulse 93 03/09/24 11:29 Resp 16 03/09/24 11:29 BP 120/70 03/09/24 11:29 Pulse Ox 98 03/09/24 11:29 O2 Del Method Nasal Cannula 03/09/24 11:29 O2 Flow Rate 2 03/09/24 11:29 BMI result Body Mass Index 18.0 DS: Data Data Completed and Pending Labs on day of discharge: Laboratory Results - last 24 hr 03/09/24 05:50 WBC 7.5 RBC 3.64 L Hgb 11.1 L Hct 33.4 L MCV 91.8 MCH 30.5 MCHC 33.2 RDW 13.2 Plt Count 342 MPV 9.6 Absolute Nucleated RBC 0.000 Nucleated RBC % (auto) 0.0 Preliminary micro results at discharge 03/05/24 21:59 Blood Culture - Preliminary Blood - Venous No growth after 48 hours. 03/05/24 21:57 Blood Culture - Preliminary Blood - Venous No growth after 48 hours. Discharge Plan Discharge Anticipated Discharge Date/Time: 03/09/24 12:39 Patient Disposition: er [facility] Discharge Diagnosis: UTI, pneumonia Referrals: [facility] [Outside] - 1 Week Niels Israel MD [Primary Care Provider] - 1 Week Discharge Medications: New levofloxacin 750 mg tablet 750 mg PO DAILY 1 Days Qty: 1 0RF Rx Instructions: Next dose March 11 around noon, 48 hrs from last dose Continued furosemide 20 mg Tablet 60 mg PO DAILY hydralazine 25 mg Tablet 25 mg PO TID Qty: 90 0RF Protocol: Hold for SBP< HOLD for SBP < : 90 aspirin 81 mg Capsule 81 mg PO DAILY ipratropium-albuterol 0.5 mg-3 mg(2.5 mg base)/3 mL solution for nebulization 3 ml inhalation Q4H PRN (Reason: Wheezing) polyethylene glycol 3350 [Miralax] 17 gram/dose powder 17 g PO DAILY Qty: 119 0RF Rx Instructions: Mix with 6-8 oz of beverage of choice levothyroxine 75 mcg tablet 75 mcg PO MOWEFR@0600 potassium chloride 20 mEq tablet,ER particles/crystals 20 meq PO BID Qty: 60 0RF magnesium hydroxide [Milk of Magnesia] 400 mg/5 mL Suspension 30 ml PO DAILY PRN (Reason: Constipation) Rx Instructions: for no BM in 3 days ( DO NOT GIVE WITH DIALYSIS RENAL /FAILURE) bisacodyl 10 mg Suppository 10 mg [place] DAILY PRN (Reason: Constipation) Rx Instructions: For no BM if M.O.M ineffective [place] Enema 19-7 gram/118 mL Enema 118 ml [place] DAILY PRN (Reason: Constipation) Rx Instructions: For no BM &If Bisacodyl supp. ineffective (DO NOT GIVE WITH DIALYSIS/RENAL FAILURE) naloxone [Narcan] 4 mg/actuation [place],Non-Aerosol 4 mg INTRANASAL Q3M PRN (Reason: Opioid Overdose) Rx Instructions: spray 1 dose into ONE nostril; alternate nostrils w each dose until help arrives Eliquis 2.5 mg Tablet 2.5 mg PO BID Qty: 60 0RF metoprolol succinate [Toprol XL] 25 mg tablet extended release 24 hr 25 mg PO DAILY Qty: 30 0RF guaifenesin 100 mg/5 mL Liquid 200 mg PO Q4H ascorbic acid (vitamin C) 500 mg Tablet 500 mg PO DAILY docusate sodium [Colace] 100 mg Capsule 100 mg PO DAILY ferrous sulfate 325 mg (65 mg iron) Tablet,Delayed Release (Dr/Ec) 325 mg PO DAILY diclofenac sodium 1 % Gel 4 g TOPICAL DAILY Rx Instructions: Apply to bilateral shoulders mirtazapine 7.5 mg Tablet 7.5 mg PO BEDTIME famotidine 20 mg tablet 20 mg PO BID montelukast 10 mg tablet 10 mg PO BEDTIME multivitamin Tablet 1 tab PO DAILY amlodipine 5 mg tablet 5 mg PO BID acetaminophen 325 mg Tablet 650 mg PO Q8H PRN (Reason: Fever Or Pain) levothyroxine 50 mcg tablet 50 mcg PO SUTUTHSA@0600 ipratropium bromide 17 mcg/actuation HFA aerosol inhaler 2 puff inhalation Q6H PRN (Reason: Shortness Of Breath) gabapentin 300 mg capsule 300 mg PO BID magnesium oxide 400 mg (241.3 mg magnesium) tablet 400 mg PO BEDTIME Discharge Orders: Discharge Order (Routine); Ordered 03/09/24 Ordered By: Timoteo Asher Diet: Advance to usual diet Activity on Discharge: As tolerated Stand Alone Forms: Patient Portal Discharge page Print Language: Georgian Care Plan Goals: recovery from encephalopathy, uti and pneumonia Health Concerns: encephalopathy, uti and pneumonia Plan of Treatment: take Levaquin 750mg as recommended next dose in 48 hr from now, that is, march 11 around noon Assessment: see above
[2024-03-09] MEDS: levoFLOXacin 500 MG TABLET 750 MG PO (14:26)
[2024-03-10 17:42] LABS: Strep Pneumo Ag urine Not Detected (Not Detected)
[2024-03-10 23:39] LABS: Legionella Ag Urine Not Detected (Not Detected)
== END 2024-03-09 14:57 | DRG 689 ==
LOC: HO.ED 22:35 → HO.EDOVER 23:07 → HO.IMC 03-06 08:39
PROVIDERS: Emergency Medicine; Physician Assistant; Admitting Provider Student in an Organized Health Care Education/Training Program; Emergency Provider Emergency Medicine; PCP Family Medicine; Visit Provider Internal Medicine
DX: N39.0 Urinary tract infection, site not specified (principal); G93.41 Metabolic encephalopathy; J18.9 Pneumonia, unspecified organism; I13.0 Hypertensive heart and chronic kidney disease with heart failure and stage 1 through stage 4 chronic kidney disease, or unspecified chronic kidney disease; I50.32 Chronic diastolic (congestive) heart failure; J96.11 Chronic respiratory failure with hypoxia; Z68.1 Body mass index [BMI] 19.9 or less, adult; J44.0 Chronic obstructive pulmonary disease with (acute) lower respiratory infection; I48.0 Paroxysmal atrial fibrillation; B96.89 Other specified bacterial agents as the cause of diseases classified elsewhere; N18.30 Chronic kidney disease, stage 3 unspecified; R63.6 Underweight; E03.9 Hypothyroidism, unspecified; Z20.822 Contact with and (suspected) exposure to COVID-19; Z91.041 Radiographic dye allergy status; Z99.81 Dependence on supplemental oxygen; Z79.01 Long term (current) use of anticoagulants; Z79.82 Long term (current) use of aspirin; Z79.890 Hormone replacement therapy; Z79.899 Other long term (current) drug therapy
CPT/HCPCS: 0241U; 36415; 70450; 71250; 74176; 80048; 80076; 81001; 82803; 83605; 83690; 83735; 84443; 84484; 85025; 85027; 85652; 86140; 87040; 87086; 87088; 87186; 87449; 87635; 87899; 93005; 99285; J1160; J2185; J2405

== ENCOUNTER → 2024-03-05 22:35 | Outpatient (BNV) | payer MEDICARE, MEDICAID, SELFPAY | PROVIDERS: Admitting Provider Student in an Organized Health Care Education/Training Program; Emergency Provider Emergency Medicine; PCP Family Medicine; Visit Provider Student in an Organized Health Care Education/Training Program | DX: J18.9 Pneumonia, unspecified organism (principal); G93.41 Metabolic encephalopathy; N39.0 Urinary tract infection, site not specified | CPT/HCPCS: 99223; 99232; 99239 ==

== ENCOUNTER 2024-07-28 14:14 | Inpatient (IN) | payer MEDICARE, MEDICAID, SELFPAY ==
[2024-07-28] VITALS (9 sets, daily range): BP systolic 174–221; BP diastolic 59–110; PULSE 73–82; RESP 13–20; TEMP 36.4–37.1; O2SAT 93–97; BMI 24.4
--- NOTE | ~2024-07-28 | XR_ITS ---
CLINICAL HISTORY: chest pain 1 view chest x-ray Comparison: CR/SR - XR CHEST 1V - 12/07/23 06:37 EDT Findings: Small left pleural effusion. No consolidation. No pneumothorax. Cardiac silhouette is enlarged. No acute fracture. IMPRESSION: 1. Small left pleural effusion. 2. No segmental pneumonia or pulmonary edema. This document has been electronically signed by: Ya Snell DO on 07/28/2024 17:25:22
--- NOTE | ~2024-07-28 | CT_ITS ---
CLINICAL HISTORY: nausea, vomiting, HTN CT HEAD WITHOUT CONTRAST Comparison: CT/SR - CT HEAD/BRAIN WO IV CON - 03/05/24 21:36 EDT Findings: No acute intracranial hemorrhage, extra-axial fluid collection, hydrocephalus or midline shift. Age appropriate generalized parenchymal atrophy. There are periventricular and subcortical white matter hypodensities which are nonspecific but most likely related to microangiopathic gliosis. Intracranial arteriosclerosis. There is opacification of several right mastoid air cells. No sinus fluid. Visualized orbits: No acute abnormalities. Bilateral scleral banding. There is no acute fracture. IMPRESSION: 1. No acute intracranial process. 2. Nonspecific partial right mastoid opacification. This document has been electronically signed by: Ya Snell DO on 07/28/2024 18:29:59
--- NOTE | ~2024-07-28 | CT_ITS ---
CLINICAL HISTORY: nausea, vomiting CT ABDOMEN AND PELVIS WITHOUT CONTRAST Comparison: CT/SR - CT ABDOMEN PELVIS WO IV CON - 03/05/24 15:53 EDT Findings: Bilateral lower lobe atelectasis and/or scarring. No consolidation or pleural effusion. Large hiatal hernia with fluid distention. No hydronephrosis, significant perinephric edema or urolithiasis. No acute abnormalities in the remaining unenhanced solid organs. The gallbladder is not well seen either contracted or absent. Extensive calcific plaque in the aorta and iliofemoral arteries. There is stable 3.6 cm infrarenal AAA. No bowel obstruction, pneumoperitoneum, or pneumatosis. Mild fluid distention of multiple small bowel loops with probable wall thickening. No abrupt transition point. Large amount of liquid stool throughout the colon. There is large amount of formed stool in the sigmoid and rectum. 4 cm periumbilical hernia contains fat with increased attenuation. Colonic diverticulosis. No acute diverticulitis. The appendix is not well seen. Hysterectomy. 8.4 x 7.5 x 9.1 cm thin-walled cystic lesion in the right hemipelvis is unchanged in size and configuration. Diffuse urinary bladder wall thickening with adjacent fat stranding. No free fluid. Stable severe compression deformity with bony retropulsion and heterogeneous sclerosis in L3. Also chronic T11 compression fracture. Minimal grade 1 spondylolisthesis L4-5. IMPRESSION: 1. Small bowel ileus with probable enteritis. No obstruction or ascites. 2. Diverticulosis coli with no convincing evidence for acute diverticulitis. 3. Large fluid-filled hiatal hernia. 4. No acute obstructive uropathy or urolithiasis. 5. Diffuse urinary bladder wall thickening suggests cystitis in the appropriate clinical setting. 6. No significant change in the 9.1 cm right hemipelvis/adnexal cystic lesion. 7. Fat containing periumbilical hernia with probable mild inflammatory changes. This document has been electronically signed by: Ya Snell DO on 07/28/2024 18:45:07
--- NOTE | ~2024-07-28 | XR_ITS ---
CLINICAL HISTORY: pain 2 view right knee Comparison: None Findings: No fractures or dislocations. No significant loss of joint space, osteophytes, or erosions. No joint effusion. No radiopaque foreign body. There is regional arterial calcification. IMPRESSION: 1. No acute findings. This document has been electronically signed by: Tom Riggs MD on 08/03/2024 07:44:06
--- NOTE | 2024-07-28 14:27 | ECG_ITS ---
Test Reason : chest pain Blood Pressure : */* mmHG Vent. Rate : 69 BPM Atrial Rate : 69 BPM P-R Int : 282 ms QRS Dur : 70 ms QT Int : 408 ms P-R-T Axes : 63 -10 63 degrees QTcB Int : 437 ms Sinus rhythm with marked sinus arrhythmia with 1st degree A-V block Anteroseptal infarct (cited on or before 28-Sep-2023) Abnormal ECG When compared with ECG of 05-Mar-2024 15:12, [place] interval has increased Vent. rate has decreased by 59 bpm Referred By: Generic ED Physician Electronically Signed By: KELLY KHAN MD
--- OUTSIDE RECORDS SUMMARY | 2024-07-28 14:42 | XMS_ITS | Data Portability ---
Author Organization [facility] [email or web address] [facility], Main Office Address [address] [place] [address] Care Team Providers Care Travel Clerk Name Role Phone TUYET BOWLES - 2ND FLOOR OTHER Assessment No assessment recorded. Plan of Treatment Reminders Order Date Submit Date Provider Last Modified By Organization Details Last Modified Time Details Appointments None record ed. Lab None record ed. Referral None record ed. Procedures None record ed. Surgeries None record ed. Imaging None record ed. Medication Orders None record ed. Patient TargetsNo targets recorded. Patient InstructionsNo instructions recorded. Reason for Referral None Reported. Problems Name Problem SNOMED Code Status Onset Date Resolution Date Notes Provider Name and Address Organization Details Recorded Time Essential hypertension 83903902 Active 2023 Zully Moyer NP [address], [place], [address], [facility] [email or web address] [facility] 4 12:51:24 Chronic obstructive pulmonary disease 18805637 Active 2023 Zully Moyer NP [address] , [address], [place], [address], [facility] [email or web address] [facility] 4 12:51:37 Atrial fibrillation 47179337 Active 2023 Zully Moyer NP [address], [address], [place], [address], [facility] [email or web address] [facility] 4 12:52:28 Abdominal aortic aneurysm 699783073 Active 2023 Zully Moyer NP [address], [address], [place], [address], [facility] [email or web address] [facility] 4 12:53:01 Hypothyroidism 48573725 Active 2023 Zully Moyer NP [address], [address], [place], [address], [facility] 4 12:53:41 Tubo-ovarian mass 375908645 Active 2023 Zully Moyer NP [address], [address], [place], [address], [employer] [facility] 4 12:53:57 Acute kidney injury 02925275 Active 2023 Zully Moyer NP [address], [address], [place], [address], [facility] 4 12:54:06 Compression fracture Active 2023 Zully Moyer NP [address], [place], [address], [employer] [facility] 4 12:55:00 Asthenia 03276290 Active 2023 Zully Moyer NP [address], [place], [address], [facility] 4 13:04:28 Gastroesophage al reflux disease 069037361 Active 2023 Zully Moyer NP [address], [place], [address], [facility] 4 13:11:38 Chronic pain 99968738 Active 2023 Zully Moyer NP [address], [address], [place], [address], [facility] 4 13:17:02 Coronary arterioscleros is 85309669 Active 2023 Zully Moyer NP [address], [place], [address], [facility] 4 13:17:49 Constipation 63107749 Active 2023 Zully Moyer NP [address], [place], [address], [facility] 4 13:18:47 Abnormal weight loss 412257928 Active 2023 Sanjuanita Diaz MD [address], [address], [place], [address], [facility] [email or web address] [facility] 4 15:54:21 Hypokalemia 12551005 Active 2023 Sanjuanita Diaz MD [address] [facility], [address], [place], [address], [facility] [email or web address] [facility] 4 16:06:58 Chronic kidney disease stage 3A 616858241 Active 2023 Sanjuanita Diaz MD [address] [facility] [address], [address], [place], [address], [facility] [email or web address] [facility] 4 16:15:00 Anemia 760314689 Active 2023 LEONARD BROWNING NP [address] [facility] [address], [address], [place], [address], [facility] [email or web address] [facility] 4 12:11:57 Problem Notes None recorded. Medical Equipment None Reported. Allergies Allergen ID Allergen Name Allergen Category Reaction Reaction Severity Criticality Documentation Date Start Date Code Code System Note Provider Name and Address Organization Details Recorded Time [id number] 29b50 adhesive tape environme nt,medica tion other Not [facility] 01/22/2024 14793 UNK Not Available Not Available Not Available [id number] 29b50 codeine medicatio n other Not available [facility] 01/22/2024 2670 RxNorm Not Available Not Available Not Available [id number] 29b50 Iodinated contrast media (substanc e) medicatio n other Not available [facility] 01/22/2024 03823 2004 SNOMED Not Available Not Available Not Available [id number] 29b50 iodine medicatio n other Not available [facility] 01/22/2024 5933 RxNorm Not Available Not Available Not Available [id number] 29b50 oxycodone medicatio n other Not available [facility] 01/22/2024 7804 RxNorm Not Available Not Available Not Available [id number] 29b50 papaya extract food,medi cation other Not available [facility] 01/22/2024 13700 12 RxNorm Not Available Not Available Not Available [id number] 29b50 strawberr y allergeni c extract food other Not available [facility] 01/22/2024 87280 4 RxNorm Not Available Not Available Not Available [id number] 29b50 procaine hydrochlo ride medicatio n other Not available [facility] 01/22/2024 67419 8 RxNorm Not Available Not Available Not Available [id number] cc320 acetamino phen / hydrocodo ne medicatio n nausea vomiting Not available Not available [facility] 01/22/2024 94776 2 RxNorm Not Available Not Available Not Available [id number] 29b50 pineapple extract food other Not available [facility] 01/22/2024 18280 74 RxNorm Not Available Not Available Not Available Medications Name Sig Start Date Stop Date Status Note LastModified by Organization Details LastModified Time furosemide 40 mg tablet TAKE 1 TABLET BY MOUTH EVERY DAY active Not Available Not Available No t Available ipratropium 0.5 mg-albuterol 3 mg (2.5 mg base)/3 mL nebulization soln active Not Available Not Available Not Available simvastatin 10 mg tablet TAKE 1 TABLET BY MOUTH EVERY DAY active Not Available Not Available No t Available hydralazine 25 mg tablet active Not Available Not Available No t Available potassium chloride ER 10 mEq tablet,extended release active Not Available Not Available Not Available amlodipine 5 mg tablet TAKE 1 TABLET BY MOUTH TWICE A DAY active Not Available Not Available No t Available levothyroxine 75 mcg tablet active Not Available Not Availabl e Not Available famotidine 20 mg tablet TAKE 1 TABLET BY MOUTH TWICE A DAY active Not Available Not Available No t Available magnesium oxide 400 mg (241.3 mg magnesium) tablet TAKE 1 TABLET BY MOUTH AT BEDTIME active Not Available Not Available No t Available levothyroxine 50 mcg tablet TAKE 1 TABLET BY MOUTH DAILY THEN 1/2 TABLET MON, WED, FRI active Not Available Not Available No t Available gabapentin 300 mg capsule TAKE 1 CAPSULE BY MOUTH TWICE A DAY NEEDED FOR PAIN active Not Available Not Available No t Available montelukast 10 mg tablet TAKE 1 TABLET BY MOUTH EVERY DAY active Not Available Not Available No t Available furosemide 20 mg tablet active Not Available Not Available No t Available metoprolol succinate ER 25 mg tablet,extended release 24 hr active Not Available Not Availabl e Not Available Atrovent HFA 17 mcg/actuation aerosol inhaler TAKE 2 PUFFS USING INHALER FOUR TIMES A DAY NEEDED active Not Available Not Available No t Available Eliquis 2.5 mg tablet active Not Available Not Available Not Available Vitals Date Recorded Body height Body weight Heart rate Respiratory rate Body temperature Oxygen saturation Oxygen saturation in Arterial blood by Pulse oximetry Systolic blood pressure Diastolic blood pressure Provider Name and Address Organization Details Last Updated DateTime 4 165.1 cm 94888.7 9 g 62 /min 18 /min 97.2 [degF] 97 % 97 % 140 mm[Hg] 66 mm[Hg] Zully Moyer NP [address] [facility] [address], [place], [address] , [facility] [employer] 4 21:44:32 Date Recorded Body height Body weight Heart rate Respiratory rate Body temperature Oxygen saturation Oxygen saturation in Arterial blood by Pulse oximetry Systolic blood pressure Diastolic blood pressure Provider Name and Address Organization Details Last Updated DateTime 4 165.1 cm 34623.7 9 g 64 /min 18 /min 97.5 [degF] 94 % 94 % 117 mm[Hg] 71 mm[Hg] Zully Moyer NP [address] [facility] [address], [place], [address] , [facility] [employer] 4 10:16:44 Date Recorded Body height Body mass index (BMI) Body weight Heart rate Respiratory rate Body temperature Oxygen saturation Oxygen saturation in Arterial blood by Pulse oximetry Systolic blood pressure Diastolic blood pressure Provider Name and Address Organization Details Last Updated DateTime 4 165.1 cm 18.8 kg/m2 87977.9 4 g 74 /min 18 /min 98.1 [degF] 95 % 95 % 158 mm[Hg] 73 mm[Hg] Zully Moyer NP [address] [facility] [address], [place], [address], [facility] 4 11:12:35 Date Recorded Body height Heart rate Respiratory rate Body temperature Oxygen saturation Oxygen saturation in Arterial blood by Pulse oximetry Systolic blood pressure Diastolic blood pressure Provider Name and Address Organization Details Last Updated DateTime 4 165.1 cm 72 /min 18 /min 98 [degF] 98 % 98 % 133 mm[Hg] 69 mm[Hg] LEONARD BROWNING NP [address] [facility], [address], [place], [address], [facility] 4 13:45:57 Date Recorded Body height Provider Name an d Address Organization Details Last Updated DateTime 06/27/2024 165.1 cm Erendira Olivo P [address] [facility], [address], [place], [address], [facility] 06/27/2024 13:36:22 Social History Question Answer Notes LastModified by Organizat ion Details LastModified Time Tobacco Smoking Status Never Smoker Zully Moyer NP [address], [address], [place], [address], [facility] 01/22/2024 13:59:17 Do You Have An Advance Directive? Yes Information not available 01/25/2024 What Is Your Level Of Alcohol Consumption? None Information not available 01/22/2024 What Is Your Code Status? Full Code Information not available 01/22/2024 Where Do You Live? SingleLevelHouse Information not available 01/25/2024 Legal Guardian? No Informati on not available 01/25/2024 Do You Have A Medical Power Of Screener And Blender? Yes Information not available 01/25/2024 What Was The Date Of Your Most Recent Tobacco Screening? 01/22/2024 Information not available 01/22/2024 Do You Have An Out Of Hospital DNR? No Information not available 01/22/2024 What Is Your Relationship Status? a Long Time Ago at Least 30 Yrs Information not available 01/25/2024 Do You Use Any Illicit Or Recreational Drugs? No Information not available 01/22/2024 Has Tobacco Cessation Counseling Been Provided? No N/a As Pt Is Non-smoker Information not available 01/25/2024 Do You Or Have You Ever Used Any Other Forms Of Tobacco Or Nicotine? No Information not available 01/22/2024 Sex: Female Functional Status None recorded. Mental Status None recorded. Family History Nothing Reported Notes:nc Medical History No medical history recorded. Gynecological HistoryNo gynecological history recorded. Obstetrics History GPAL:G 0 P 0 0 0 0 Past Encounters Encounter ID Performer Location Encounter Start Date Encounter Closed Date Diagnosis/Indication Diagnosis SNOMED-CT Code Diagnosis ICD10 Code Diagnosis Note [id number] Zully Moyer NP [facility] [address] [place] [address] 01/22/2024 12:15:29 01/25/2024 15:27:41 Chronic obstructive pulmonary disease 03128622 J44.9 O2 2l at baseline, may titrate to maintain sat 92%montelu kast 10 mg po qhsduoneb q 4 hours prn sob/wheezi ngcoricidi n liquid 5 ml po prn q 4 hours coughmonit or resp status, vitals Atrial fibrillation 4943 6004 I48.91 eliquis 2.5 mg po bidsee htn meds belowmonit or hr and vitals Essential hypertension 08730840 I10 hydralazin e 25 mg po tidmetopro lol er 25 mg po dailyfuros emide 60 mg po dailypotas sium 20 meq po qdamlodipi ne 5 mg po bidmonitor Abdominal aortic aneurysm 564417902 I71.40 monitor Hypothyroidism 94618143 E03.9 levothyrox ine 50 mcg , , sat, mondayrech nora tsh shawna, then q 6 monthsmoni tor Tubo-ovarian mass 591459 009 N83.8 has adnexal mass, see hpiworkupe d up at [facility] and felt non urgentmoni tor Acute kidney injury 1466 9001 N17.9 avoid nephrotoxi c meds, see labs aboveon lasix15 bmp and cbc with diff, lipid profile, shawna then cbc and bmp weekly on mondays x3 Compression fracture 219 41513 T14.8XXD hx ofsee chronic pain meds Asthenia 84611035 R53.1 pt ot eval and treatmonit or Chronic pain 54825336 G8 9.29 gabapentin 300 mg po bidmuscle rub cream bid lower ext Gastroesop hageal reflux disease 237347338 K21.00 famotidine 20 mg po dailymonit or Coronary arteriosclerosis 65047971 I25.10 hx of MIaspirin 81 mg po qdmonitor Constipation 79838124 K5 9.00 chronicdoc usate 100 mg po dailymiral ax 17 grm po dailymonit or Recurrent falls 61323230 2 R29.6 recurrent falls with weaknessth erapy as toleratedm onitor [id number] LEONARD BROWNING NP [facility] [address] [address] 01/24/2024 12:19:43 01/25/2024 16:10:57 Chronic obstructive pulmonary disease 15582152 J44.9 O2 2l at baseline, may titrate to maintain sat 92%montelu kast 10 mg po qhsduoneb q 4 hours prn sob/wheezi ngcoricidi n liquid 5 ml po prn q 4 hours coughmonit or resp status, vitals Atrial fibrillation 4943 6004 I48.91 eliquis 2.5 mg po bidsee htn meds belowmonit or hr and vitals Essential hypertension 84971195 I10 hydralazin e 25 mg po tidmetopro lol er 25 mg po dailyfuros emide 60 mg po dailypotas sium 20 meq po qdamlodipi ne 5 mg po bidmonitor Abdominal aortic aneurysm 839443449 I71.40 monitor Hypothyroidism 08901698 E03.9 levothyrox ine 50 mcg , , sat, good, 4.52monito r Tubo-ovarian mass 232558 009 N83.8 has adnexal mass, see hpiworkupe d up at [facility] and felt non urgentmoni tor Acute kidney injury 1466 9001 N17.9 avoid nephrotoxi c meds, see labs aboveon lasix7/15 bmp and cbc with diff, lipid profile, shawna then cbc and bmp weekly on mondays x3 Compression fracture 219 00049 T14.8XXD hx ofsee chronic pain meds Asthenia 06680857 R53.1 pt ot eval and treat prnspends a lot of time in bed.monito r Chronic pain 20592355 G8 9.29 gabapentin 300 mg po bidmuscle rub cream bid lower ext Gastroesop hageal reflux disease 146817027 K21.00 famotidine 20 mg po dailymonit or Coronary arteriosclerosis 39063402 I25.10 hx of MIaspirin 81 mg po qdmonitor Constipation 22741220 K5 9.00 chronicdoc usate 100 mg po dailymiral ax 17 grm po dailymonit or Recurrent falls 61277472 2 R29.6 recurrent falls with weaknessth erapy as toleratedm onitor Hypokalemia 87326882 E87 .6 K 3.1Current ly on lasix 60 mg qd and KCl 20 meq bidPlan -increase KCl to 20 meq tidBMP 01/28 Abnormal weight loss 267 434277 R63.4 155 lbs in October, now 115 lbs.Aftab ramírez a full code.Wt. loss discussed with Vane, she is not worried about it.Goals of care discussed, not much of an opinion at this time. Wants to see how she does over the next few weeks.Decl deven Brown at this time. First impression : appears depressed, spend a lot of time in bed, poor appetite.R efer to PsychDieti miguel also following, currently on daily supplement and fortified foods.Bryanna tor closely. [id number] Sanjuanita Diaz MD [address] [address] 01/25/2024 14:20:13 01/30/2024 14:48:07 Hypokalemia 87088740 E87.6 Continue KCl 20 mg TID (increased yest due to K+3.1)Bryanna tor labs. Abnormal weight loss 267 725693 R63.4 40# wt loss since 09/2023.Trino falguni continues to say that she is not worried about it.She agrees to try mirtazapin e, will start 7.5 mg qhs.Contin ue house supplement qAM, mighty shake qPM, and prosource 30 ml qd.Monitor wts.Psych consult as above. 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 Atrial fibrillation 4943 6004 I48.0 Rate in good control on meds as above.Cont inue eliquis 2.5 mg BID for AC.Monitor HR and bleeding risk. Essential hypertension 56310961 I10 Mostly good recently, some borderline SBPs, but within range for permissive HTN.Contin ue hydralazin e 25 mg TID, metoprolol ER 25 mg qd, furosemide 60 mg qd, and amlodipine 5 mg BID.Contin ue KCl 20 mg TID to prevent hypokalemi a.BP goal for this elderly woman is permissive HTN, with SBP<150 and DBP<90Moni tor BP and labs. Abdominal aortic aneurysm 587972572 I71.40 Size still less than cutoff of 5.5 cm.Monitor yearly.F/U with vascular surgeon prn. Hypothyroidism 92350096 E03.8 TSH sl. high, but good FT4.Contin ue levothyrox ine 50 mcg //Mon/ Sun and 75 mcg //FMonit or TSH yearly. Tubo-ovarian mass 824280 009 N83.8 With 9 cm cystic mass on right ovary.Per GOVERNMENT SALES MANAGER no acute issue and doubt malignancy .Monitor for sxs.GOVERNMENT SALES MANAGER f/u prn. Compression fracture 219 45621 T14.8XXD As above. 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 Chronic pain 73567694 G8 9.29 No c/o today.Cont inue gabapentin 300 mg BID and APAP 650 mg q 8 hrs prn.Use muscle rub cream to BLE BID and prn.Monito r sxs. Gastroesop hageal reflux disease 102853392 K21.00 No current sxs.Contin ue famotidine 20 mg qdMonitor GI sxs. Coronary arteriosclerosis 68299730 I25.10 No recent sxs.Contin ue meds as above and ASA 81 mg qd.Monitor for sxs. Constipation 51327659 K5 9.09 Continue bowel meds as ordered.Mo nitor bowel function. Impaired cognition 69180 6002 R41.89 BIMs was 14/15, but she is very vague about dates and medical problems.C ontinue supportive care.Monit or for need to invoke HCPMonitor mood and behaviors. Psych consulted Chronic ki dney disease stage 3A 230679294 N18.31 Stable since last hospitaliz ation.Cont inue to avoid nephrotoxi c meds as able.Monit or labs.Renal consult prn. 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 Chronic ob structive pulmonary disease 93514619 J43.8 At baseline.P t says they think COPD is from chemical exposure as nurse or 2nd hand smoke in people's homes.cont supplement al O2 by [place], titrate to maintain sats 88-92%anastacio elukast 10 mg qhs, duoneb q 6 hrs prn sob/wheezi ngcoricidi n liquid 5 ml q 4 hrs prn cough.Bryanna tor resp status. Abnormal weight loss 267 885259 R63.4 40# wt loss since 09/2023. now 114 lbsShe continues to say that she is not worried about it.01/24 started on mirtazapin e 7.5 mg qhs.Contin ue house supplement qAM, mighty shake qPM, and prosource 30 ml qd.Monitor wts.Psych consult as above. Essential hypertension 02216719 I10 borderline SBPs, but within range for permissive HTN.Contin uehydralaz ine 25 mg TIDmetopro lol ER 25 mg qdfurosemi de 60 mg qdamlodipi ne 5 mg BID.KCl 20 mg TID to prevent hypokalemi a.BP goal for this elderly woman is permissive HTN, with SBP<150 and DBP<90Moni tor BP and labs. Atrial fibrillation 4943 6004 I48.0 Rate in good control on meds as above.Cont inueeliqui s 2.5 mg BID for AC.Monitor HR and bleeding risk. Coronary arteriosclerosis 30318565 I25.10 No recent sxs.Contin ue meds as aboveASA 81 mg qd.Monitor for sxs. Hypokalemia 22706462 E87 .6 ContinueKC l 20 mg TID (increased yest due to K+3.1)Bryanna tor labs. Impaired cognition 38777 6002 R41.89 BIMs was 14/15 on admit, but she is very vague about dates and medical problems.c ongnition better with o2 complaince Continue supportive care.Monit or for need to invoke HCPMonitor mood and behaviors. Psych consultedw ill consider urine sample if cognition declines Abdominal aortic aneurysm 016445243 I71.40 Size still less than cutoff of 5.5 cm.Monitor yearly.F/U with vascular surgeon prn. Hypothyroidism 79813992 E03.8 TSH sl. high, but good FT4.Contin uelevothyr oxine 50 mcg //Mon/ Sun and 75 mcg //FMonit or TSH yearly. Tubo-ovarian mass 803692 009 N83.8 With 9 cm cystic mass on right ovary.Per GOVERNMENT SALES MANAGER no acute issue and doubt malignancy .Monitor for sxs.GOVERNMENT SALES MANAGER f/u prn. Chronic ki dney disease stage 3A 558490517 N18.31 Stable since last hospitaliz ation.Cont inue to avoid nephrotoxi c meds as able.Monit or labs.Renal consult prn. Chronic pain 81090980 G8 9.29 No c/o today.Cont inuegabape ntin 300 mg BIDAPAP 650 mg q 8 hrs prn.Use muscle rub cream to BLE BID and prn.Monito r sxs. Compression fracture 219 33373 T14.8XXD As above. Gastroesop hageal reflux disease 900019599 K21.00 No current sxs.Contin ue famotidine 20 mg qdMonitor GI sxs. Constipation 67574864 K5 9.09 Continue bowel meds as ordered.Mo nitor bowel function. [id number] LEONARD BROWNING NP [facility] [address] [place] [address] 02/07/2024 11:54:33 02/08/2024 16:30:28 Impaired cognition 641585671 R41.89 BIMs was 14/15 on admit, but she is very vague about dates and medical problems.c ongnition better with o2 complaince Continue supportive care.Monit or for need to invoke HCPMonitor mood and behaviors. Psych consulted, no new recs other than anay corral consider urine sample if cognition declines Abnormal weight loss 267 530757 R63.4 40# wt loss since 09/2023. now 114 lbsShe continues to say that she is not worried about it.On 01/24 started on mirtazapin e 7.5 mg qhs.Dietic rajiv following - continue house supplement qAM, mighty shake qPM, and prosource 30 ml qd.Continu e to monitor wts.Seen by Psych, agree with wilfredo. 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 Asthenia 47230977 R53.1 Remains deconditio [place]ie.No longer getting rehab services.S pends most of time in bed, declines to get upContinue fall precaution s.Monitor for safety.[facility] lear what assisted plan is. Essential hypertension 44610042 I10 borderline SBPs, but within range for permissive HTN.Contin uehydralaz ine 25 mg TIDmetopro lol ER 25 mg qdfurosemi de 60 mg qdamlodipi ne 5 mg BID.KCl 20 mg TID to prevent hypokalemi a.BP goal for this elderly woman is permissive HTN, with SBP<150 and DBP<90Moni tor BP and labs. Atrial fibrillation 4943 6004 I48.0 Rate in good control on meds as above.Cont inueeliqui s 2.5 mg BID for AC.Monitor HR and bleeding risk. Coronary arteriosclerosis 82795124 I25.10 No recent sxs.Contin ue meds as aboveASA 81 mg qd.Monitor for sxs. Hypokalemia 32929123 E87 .6 K this week 3.9Continu e KCl 20 mg TIDMonitor labs. Abdominal aortic aneurysm 632471391 I71.40 Size still less than cutoff of 5.5 cm.Monitor yearly.F/U with vascular surgeon prn. Hypothyroidism 32004315 E03.8 TSH sl. high, but good FT4.Contin uelevothyr oxine 50 mcg //Sat/ Sun and 75 mcg //FMonit or TSH yearly and prn Tubo-ovarian mass 973287 009 N83.8 With 9 cm cystic mass on right ovary.Per GOVERNMENT SALES MANAGER no acute issue and doubt malignancy .Monitor for sxs.GOVERNMENT SALES MANAGER f/u prn. Chronic ki dney disease stage 3A 397077115 N18.31 Stable since last hospitaliz ation.Cont inue to avoid nephrotoxi c meds as able.Monit or labs.Renal consult prn. Chronic pain [id number] G8 9.29 No c/o today.Cont inuegabape ntin 300 mg BIDAPAP 650 mg q 8 hrs prn.Use muscle rub cream to BLE BID and prn.Monito r sxs. Compression fracture 219 58493 T14.8XXD As above. Gastroesop hageal reflux disease 610716602 K21.00 No current sxs.Contin ue famotidine 20 mg bidMonitor GI sxs. Constipation 37769028 K5 9.09 Continue bowel meds as ordered.Mo nitor bowel function. Anemia 255840080 D64.9 Hgb 11 -> 9.1Normocy tic. On eliquisOn pepcid bidHx. CKD Plan -Hemetest stools x 3CBC x 1 monday along with Fe profile and B12, folateCont inue pepcidTo ER if acute, full code. [id number] Zully Moyer NP [address] [address] 02/09/2024 13:37:09 02/13/2024 09:43:07 Anemia 822894879 D64.9 Hgb 11 -> 9.1conteli quispepcid bidHx. CKDHemetes t stools x 3CBC x 1 monday along with Fe profile and B12, folatepepc idTo ER if acute, full code. Abnormal weight loss 267 812633 R63.4 40# wt loss since 09/2023. now 116.9 since starting mirtazapin e and that is 2.9 lbs up in a week.She continues to say that she is not worried about it.On 01/24 started on mirtazapin e 7.5 mg qhs. will consider increase if wgt gain slowsDieti miguel following - continue house supplement qAM, mighty shake qPM, and prosource 30 ml qd.Continu e to monitor wts.Seen by Psych, agree with wilfredo. Impaired cognition 14596 6002 R41.89 BIMs was 14/15 on admit, but she is very vague about dates and medical problems.c ongnition better with o2 compliance Continue supportive care.Monit or for need to invoke HCPMonitor mood and behaviors. 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 Asthenia 72114075 R53.1 Remains deconditio sadie.No longer getting rehab services.S pends most of time in bed, declines to get upContinue fall precaution s.Monitor for safety.[facility] lear what assisted plan is. Essential hypertension 84018794 I10 borderline SBPs, but within range for permissive HTN.Contin uehydralaz ine 25 mg TIDmetopro lol ER 25 mg qdfurosemi de 60 mg qdamlodipi ne 5 mg BID.KCl 20 mg TID to prevent hypokalemi a.BP goal for this elderly woman is permissive HTN, with SBP<150 and DBP<90Moni tor BP and labs. Atrial fibrillation 4943 6004 I48.0 Rate in good control on meds as above.Cont inueeliqui s 2.5 mg BID for AC.Monitor HR and bleeding risk. Coronary arteriosclerosis 64810445 I25.10 No recent sxs.Contin ue meds as aboveASA 81 mg qd.Monitor for sxs. Hypokalemia 28787840 E87 .6 K this week 3.9Continu e KCl 20 mg TIDMonitor labs. Abdominal aortic aneurysm 051515722 I71.40 Size still less than cutoff of 5.5 cm.Monitor yearly.F/U with vascular surgeon prn. Hypothyroidism 46882550 E03.8 TSH sl. 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 Chronic ki dney disease stage 3A 018962173 N18.31 Stable since last hospitaliz ation.Cont inue to avoid nephrotoxi c meds as able.Monit or labs.Renal consult prn. Chronic pain 93913493 G8 9.29 No c/o today.Cont inuegabape ntin 300 mg BIDAPAP 650 mg q 8 hrs prn.Use muscle rub cream to BLE BID and prn.Monito r sxs. Compression fracture 219 86473 T14.8XXD As above. Gastroesop hageal reflux disease 525632057 K21.00 No current sxs.Contin uefamotidi ne 20 mg bidMonitor GI sxs. Constipation 18138346 K5 9.09 Continue bowel meds as ordered.Mo nitor bowel function. Abdominal pain 15001741 R10.9 upset stomach pain now resolving with zofran and pepcidvita ls stable and feeling better, she will cont with meds above(note hx of AAA and if acute abd pain persists will consider acute workup)zof ran 4 mg po q 6 hours prnbmp and cbc on monday [id number] [facility] [address] 02/14/2024 11:53:07 02/20/2024 14:29:51 Abdominal pain 22519891 R10.9 No recent complaints Continue pepcid and prn zofranMoni tor Anemia 798484835 D64.9 Hgb 11 -> 9.1 -> 9.4No reports of active bleed or heme pos. stools.con tinue pepcid bidremains on eliquis and ASAHx. CKDHemetes t stools x 3 requested, not done yet, monitor for active bleed.Fe level low - add FeSO4 325 mg and Vit C 500 mg qdCBC q month x 3 to trend Abnormal weight loss 267 815754 R63.4 40# wt loss since 09/2023.Rem seven 7.5 mg qd added 01/24.Dieti miguel following, remains on supplement s.Weight up 2 lbs - continue to monitor.no w 116.9 since starting mirtazapin e and that is 2.9 lbs up in a week.Sahil enoch to monitor closely Impaired cognition 01435 6002 R41.89 BIMs was 14/15 on admit, but she is very vague about dates and medical problems.c ongnition better with o2 compliance Continue supportive care.Monit or for need to invoke HCPMonitor mood and behaviors. 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 Asthenia 36137724 R53.1 Remains deconditio sadie.No longer getting rehab services.S pends most of time in bed, but this has been improvingC ontinue fall precaution s.Monitor for safety.[facility] lear what assisted plan is. Essential hypertension 02144619 I10 borderline SBPs, but within range for permissive HTN.Contin uehydralaz ine 25 mg TIDmetopro lol ER 25 mg qdfurosemi de 60 mg qdamlodipi ne 5 mg BID.KCl 20 mg TID to prevent hypokalemi a.BP goal for this elderly woman is permissive HTN, with SBP<150 and DBP<90Moni tor BP and labs. Atrial fibrillation 4943 6004 I48.0 Rate in good control on meds as above.Cont inueeliqui s 2.5 mg BID for AC.Monitor HR and bleeding risk. Coronary arteriosclerosis 65429970 I25.10 No recent sxs.Contin ue meds as aboveASA 81 mg qd.Monitor for sxs. Hypokalemia 81483219 E87 .6 K this week 3.9Continu e KCl 20 mg TIDMonitor labs. Abdominal aortic aneurysm 956379744 I71.40 Size still less than cutoff of 5.5 cm.Monitor yearly.F/U with vascular surgeon prn. Hypothyroidism 73061303 E03.8 TSH sl. high, but good FT4.Contin uelevothyr oxine 50 mcg //Mon/ Sun and 75 mcg //FMonit or TSH yearly and prn Tubo-ovarian mass 980053 009 N83.8 With 9 cm cystic mass on right ovary.Per GOVERNMENT SALES MANAGER no acute issue and doubt malignancy .Monitor for sxs.GOVERNMENT SALES MANAGER f/u prn. Chronic ki dney disease stage 3A 934033606 N18.31 Stable since last hospitaliz ation.Cont inue to avoid nephrotoxi c meds as able.Monit or labs.Renal consult prn. Chronic pain 08376790 G8 9.29 No c/o today.Cont inuegabape ntin 300 mg BIDAPAP 650 mg q 8 hrs prn.Use muscle rub cream to BLE BID and prn.Monito r sxs. Compression fracture 219 00213 T14.8XXD As above. Gastroesop hageal reflux disease 222724079 K21.00 No current sxs.Contin uefamotidi ne 20 mg bidMonitor GI sxs. Constipation 64447558 K5 9.09 Continue bowel meds as ordered.Mo nitor bowel function. [id number] [facility] [address] 02/26/2024 13:19:39 03/01/2024 15:49:31 Impaired cognition 659413200 R41.89 BIMs was 14/15 on admit, but she is very vague about dates and medical problems.c ongnition better with o2 compliance Continue supportive care.Monit or for need to invoke HCPMonitor mood and behaviors. Psych consulted, no new recs other than remeronwil l consider urine sample if cognition declines Chronic ob structive pulmonary disease 93157851 J43.8 At baseline., nsg states cough and mucous, however pt denies and NAD. 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 and change to robitussin (coricidin not avail)Bryanna tor resp status. Chronic pain 88661796 G8 9.29 No c/o today.Cont inuegabape ntin 300 mg BIDAPAP 650 mg q 8 hrs prn.Use muscle rub cream to BLE BID and prn.02/25 start diclofenac gel 1% topically to knees dailyMonit or sxs. [id number] Zully Moyer NP [facility] [address] [address] 02/29/2024 15:56:47 03/04/2024 10:03:33 Hypokalemia 67037428 E87.6 K this week 3. dc KCl 20 mg TID, which she has been taking regularly start kcl 40 meq po bidMonitor labs bmp and cbc on monday [id number] LEONARD BROWNING NP [facility] [address] 03/05/2024 11:33:19 03/06/2024 15:57:17 Hypoxemia 027239188 R09.02 O2 sat 73% on RA today, lethargic, refusing po, meds.O2 applied, keeping sats in the 90s on 2L.Initial ly pt. wanted to stay at SNF and change her code status accordingl y.HCP updated of condition and came in to visit, pt. decided to keep full code status thus sending to ER for more thorough evaluation . Abnormal weight loss 267 259442 R63.4 40# wt loss since 09/2023.Con tinues to lose weight, currently 114 lbs.Remero n 7.5 mg qd added 01/24.Dieti miguel following, remains on supplement s. [id number] LEONARD BROWNING NP [facility] [address] [address] 03/12/2024 13:27:10 03/13/2024 11:52:31 Abnormal weight loss 672878704 R63.4 40# wt loss since 09/2023.Con tinues to lose weight, currently 114 lbs.Remero n 7.5 mg qd added 01/24, continueDi etician following, remains on supplement s. Urinary tr act infectious disease 04924923 N39.0 Klebsiella , [place] [facility] [place] with levaquin 500 mg x 1 dose on 03/11.Mainta in fluidsMoni tor VS, sx. Metabolic encephalopathy 16985652 G93.41 [place] [facility] [place], treated for UTI and PNA with improvemen t in status.See below.Bryanna tor. Pneumonia 288683501 J18. 9 Reported as right sided [place] [facility] [place], treated with meropenem, then levaquin.M onitor VS, sats, LS, labs for changesRef er to POLICE SERVICE TECHNICIAN, due to concern of possible aspiration due to right sided presentati on.Continu e O2, chronic use. [id number] LEONARD BROWNING NP [facility] [address] [address] 03/19/2024 08:23:25 03/20/2024 13:59:36 Metabolic encephalopathy 17979344 G93.41 ResolvedRe cent stay [place] [facility] [place], treated for UTI and PNAMonitor mental status Urinary tr act infectious disease 61009477 N39.0 Resolved, no urinary sxsVSSLabs stable.Kle bsiella, treated with meropenem then levaquin at [facility].Comple marcelo Abx 03/11.Mainta in fluidsMoni tor VS, sx. Pneumonia 874890453 J18. 9 Treated as inptAs above, treated with meropenem, then levaquin.M onitor VS, sats, LS, labs for changesFol low up with POLICE SERVICE TECHNICIAN as planned- suspicion of possible aspiration due to right sided PNA.Contin ue O2, chronic use.Monito r for sxs Abnormal weight loss 267 834621 R63.4 44# wt loss since 09/2023.Con tinues to lose weight, currently 112.5 lbs.Remero n 7.5 mg qd added 01/24- will increase to 15mgDietic rajiv following, continue with supplement s. [id number] Zully Moyer NP [facility] [address] [address] 04/11/2024 12:49:36 04/12/2024 10:14:46 Abnormal weight loss 471325085 R63.4 44# wt loss since 09/2023.Con tinues to lose weight, currently 112.5 lbs.contRe el 15mg po qhs, recently increasedD ietician following, continue with supplement s. Acute uppe r respiratory infection 75137334 J06.9 pt with nausea, chills, aches, and congestion todayshe was given tylenol with some /3 startrobit ussin 10 ml po q 6 hours prn coughzofra n 4 mg po q 6 hours prnpush po fluids as toleratedb mp and cbc with diff tomcovid test neg, with covid in facilitysh e recently had pna and will get cxr to rule out reoccuranc e0-4 liters to keep o2 sat >92% on 3liters baselinemo nitor and encourage light diet [id number] Zully Moyer NP [facility] [address] [address] 04/15/2024 15:33:07 04/16/2024 09:29:22 Acute COVID-19 9841826340 U07.1 pt with nausea, chills, aches, fatigue and congestion for a few days covid positive on 04/15 04/15 due to ckd and gfr 46 on eliquis will start on molnupirav ir 800mg po bid x 5daysisola tion precaution s airbornesu pportive care controbitu ssin 10 ml po q 6 hours prn coughzofra n 4 mg po q 6 hours prnpush po fluids as tolerated0 -4 liters to keep o2 sat >92% on 3liters baselinemo nitor and encourage light diet [id number] Zully Moyer NP [address] [address] 04/18/2024 11:20:20 04/22/2024 08:46:23 Acute COVID-19 6912214126 U07.1 pt with nausea, chills, aches, fatigue and congestion for a few days covid positive on 04/15 04/15 due to ckd and gfr 46 on eliquis will start on molnupirav ir 800mg po bid x 5daysisola tion precaution s airbornesu pportive care 04/18start prednisone 40 mg po daily x 5 dayssched duonebs q 6 hours x 3 days and cont prn q 6 hoursrepea t xray with increased sob today and covidlabs on 04/19 contcannot take mucinex(pe r pt)robitus sin 10 ml po q 6 hours prn coughzofra n 4 mg po q 6 hours prnpush po fluids as tolerated0 -4 liters to keep o2 sat >92% on 3liters baselinemo nitor and encourage light diet Chronic ob structive pulmonary disease 18468344 J43.8 At baseline., nsg states cough and mucous, however pt denies and NAD. 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 contsupple mental O2 by NC, titrate to maintain sats 88-92% (seems 3liters baseline)m ontelukast 10 mg qhsduoneb q 6 hrs prn sob/wheezi ng and sched q 6 schedrobit ussin (coricidin not avail)Bryanna tor resp status. [id number] LEONARD BROWNING NP [facility] [address] 04/23/2024 13:42:19 04/24/2024 12:26:36 Acute COVID-19 7794373114 U07.1 Nausea, chills, aches, fatigue and congestion Tested covid positive on art d on molnupirav ir 800mg po bid x 5days as well as supportive meds.Added prednisone 40 mg po daily x 5 days, and duonebs q 6 hours x 3 days in add. to prn order on 04/18Repea t xray 04/18 NADlabs on 04/19 not doneNow testing covid negative and starting to clinically improve Continue supportive care/medsE ncourage po fluids as toleratedT itrate O2 to keep sats > 90%Monitor , to ER if worsens. Chronic ob structive pulmonary disease 45804966 J43.8 At baseline., nsg states cough and mucous, however pt denies and NAD. 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 contsupple mental O2 by NC, titrate to maintain sats 88-92% (seems 3liters baseline)m ontelukast 10 mg qhsduoneb q 6 hrs prn sob/wheezi ng and sched q 6 schedrobit ussin (coricidin not avail)Bryanna tor resp status. Abnormal weight loss 267 266835 R63.4 Over 40 lb. wt. loss since September.Betsy gallardo added 01/24, dose increased / to 15 mg. qhs.Weight s starting to stabilize around 115 lbs.Dietic rajiv following, continue with supplement s.Monitor Atrial fibrillation 4941 6004 I48.0 Continueel iquis 2.5 mg BID for AC.metopro lol ER 25 mg qd for rate control.Mo nitor HR and bleeding risk. Chronic ki dney disease stage 3A 129349458 N18.31 Stable since last hospitaliz ation.Cont inue to avoid nephrotoxi c meds as able.Monit or labs.Renal consult prn. Essential hypertension 94998700 I10 borderline SBPs, but within range for permissive HTN.Contin uehydralaz ine 25 mg TIDmetopro lol ER 25 mg qdfurosemi de 60 mg qdamlodipi ne 5 mg BID.KCl 20 mg TID to prevent hypokalemi a.BP goal for this elderly woman is permissive HTN, with SBP<150 and DBP<90Moni tor BP and labs. Coronary arteriosclerosis 66237223 I25.10 No recent sxs.Contin ue meds as aboveASA 81 mg qd.Monitor for sxs. Hypothyroidism 43195239 E03.8 TSH sl. high, but good FT4.Contin uelevothyr oxine 50 mcg //Mon/ Sun and 75 mcg //FMonit or TSH yearly and prn Anemia 664437876 D64.9 Hgb 11 -> 9.1 -> 9.4 ->10.5No reports of active bleed or heme pos. stools.con tinue pepcid bidremains on eliquis and ASAHx. CKDFe level low - added FeSO4 325 mg and Vit C 500 mg qdCBC q month x 3 to trend Gastroesop hageal reflux disease 404043881 K21.00 No current sxs.Contin uefamotidi ne 20 mg bidMonitor GI sxs. [id number] [facility] [address] 04/25/2024 14:45:39 04/29/2024 09:34:31 Acute COVID-19 6166027346 U07.1 recovered with moderate course with Nausea, chills, aches, fatigue and congestion Tested covid positive on omple marcelo molnupirav ir 800mg po bid x 5days as well as supportive meds.compl eted prednisone 40 mg po daily x 5 days, and duonebs q 6 hours x 3 days in add. to prn order on 04/18Repea t xray 04/18 NADlabs on 04/19 not doneNow testing covid negative and starting to clinically improve Continue supportive care/medsE ncourage po fluids as toleratedT itrate O2 to keep sats > 90%Monitor , to ER if worsens. Chronic ob structive pulmonary disease 97192221 J43.8 At baseline., nsg states cough and mucous, however pt denies and NAD. 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 contsupple mental O2 by NC, titrate to maintain sats 88-92% (seems 3liters baseline)m ontelukast 10 mg qhsduoneb q 6 hrs prn sob/wheezi ng and sched bidrobitus sin (coricidin not avail)Bryanna tor resp status. Abnormal weight loss 267 342993 R63.4 Over 40 lb. wt. loss since September.Betsy paulina 15 mg. qhs.Weight s starting to stabilize around 115 lbs. last wgt ? inaccurate (will request another wgt)Dietic rajiv following, continue with supplement s.Monitor Atrial fibrillation 6214 6007 I48.0 Continueel iquis 2.5 mg BID for AC.metopro lol ER 25 mg qd for rate control.Mo nitor HR and bleeding risk. Chronic ki dney disease stage 3A 931662231 N18.31 Stable since last hospitaliz ation.avoi d nephrotoxi c meds as able.Monit or labs.Renal consult prn. Essential hypertension 96704829 I10 borderline SBPs, but within range for permissive HTN.Contin uehydralaz ine 25 mg TIDmetopro lol ER 25 mg qdfurosemi de 60 mg qdamlodipi ne 5 mg BID.KCl 20 mg TID to prevent hypokalemi a.BP goal for this elderly woman is permissive HTN, with SBP<150 and DBP<90Moni tor BP and labs. Coronary arteriosclerosis 94543961 I25.10 No recent sxs.Contin ue meds as aboveASA 81 mg qd.Monitor for sxs. Hypothyroidism 76185149 E03.8 TSH sl. high, but good FT4.Contin uelevothyr oxine 50 mcg //Mon/ Sun and 75 mcg //FMonit or TSH yearly and prn Anemia 932165452 D64.9 stable as above latelyNo reports of active bleed or heme pos. stools.con tinue pepcid bidremains on eliquis and ASAHx. CKDcontFeS O4 325 mg and Vit C 500 mg qdCBC q month x 3 to trend Gastroesop hageal reflux disease 823193190 K21.00 No current sxs.Contin uefamotidi ne 20 mg bidMonitor GI sxs. 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 contsupple mental O2 by PA, titrate to maintain sats 88-92% (seems 3liters baseline)m ontelukast 10 mg qhsduoneb q 6 hrs prn sob/wheezi ng and sched bidrobitus sin (coricidin not avail)Bryanna tor resp status. Acute COVID-19 437805126 8 U07.1 remains improved and recovered with moderate courseTest ed covid positive on omple marcelo molnupirav ir 800mg po bid x 5days as well as supportive meds.compl eted prednisone 40 mg po daily x 5 days, and duonebs q 6 hours x 3 days in add. to prn order on 04/18Repea t xray 04/18 NADlabs on 04/19 not doneNow testing covid negative and starting to clinically improve Continue supportive care/medsE ncourage po fluids as toleratedT itrate O2 to keep sats > 90%Monitor , to ER if worsens. Abnormal weight loss 267 913923 R63.4 Over 40 lb. wt. loss since September.cont Remeron 15 mg. qhs.Weight s starting to stabilize around 115 lbs. last wgt ? inaccurate (will request another wgt) and now showing 106 lbsDietici an following, continue with supplement s.Monitor Atrial fibrillation 4943 6004 I48.0 Continueel iquis 2.5 mg BID for AC.metopro lol ER 25 mg qd for rate control.Mo nitor HR and bleeding risk. Constipation 51148856 K5 9.09 Continue bowel meds:ajit ax daily05/06 startincre ase colace 100 mg po to twice a daymom 30cc [id number] na 1 tab po dailyMonit or bowel function. [id number] Zully Moyer NP [facility] [address] [address] 05/20/2024 16:51:54 05/22/2024 10:02:12 Pain of toe of right foot 5073201398 01011 M79.674 pt stumbed her right great toe and 2nd digit now resolving without obvious s/s of injury.may skin prep 1st and 2nd distal toes for bogginess aswell as right heel which is already being done bidmonitor [id number] LEONARD BROWNING, KEILA [facility] [address] [place] [address] 06/20/2024 13:45:08 06/21/2024 14:27:49 Acute COVID-19 3594066042 U07.1 Now resolvedTe sted covid positive on omple marcelo molnupirav ir 800mg po bid x 5days, prednisone burst, and duonebs.joon Whitney currently in facility again, blanket testing on unit qod, results neg. so far. 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 continue:s upplementa l O2 by PA, titrate to maintain sats 88-92% (seems 3liters baseline)m ontelukast 10 mg qhsduoneb bid and q 6 hrs prnrobitus sin prnMonitor resp status. Abnormal weight loss 267 649446 R63.4 Over 40 lb. wt. loss since September.Betsy gallardo added 01/24, dose increased /2 to 15 mg. qhs.Weight s stabilizin g - currently 116 lbs.Dietic rajiv following, continue with supplement s.Monitor Atrial fibrillation 4943 6004 I48.0 Continueel iquis 2.5 mg BID for AC.metopro lol ER 25 mg qd for rate control.Sandip yadav HR and bleeding risk. Chronic ki dney disease stage 3A 794794110 N18.31 Stable since last hospitaliz ation.Cont inue to avoid nephrotoxi c meds as able.Monit or labs.Renal consult prn. Essential hypertension 38976439 I10 borderline SBPs, but within range for permissive HTN.Contin uehydralaz ine 25 mg TIDmetopro lol ER 25 mg qdfurosemi de 60 mg qdamlodipi ne 5 mg BID.KCl 20 mg TID to prevent hypokalemi a.BP goal for this elderly woman is permissive HTN, with SBP<150 and DBP<90Moni tor BP and labs. Coronary arteriosclerosis 08071429 I25.10 No recent sxs.Contin ue meds as aboveASA 81 mg qd.Monitor for sxs. Hypothyroidism 41434923 E03.8 02/29/24 TSH = 2.19Contin uelevothyr oxine 50 mcg //Mon/ Sun and 75 mcg //FMonit or TSH yearly and prn Anemia 743803138 D64.9 Hgb 11 -> 9.1 -> 9.4 ->10.5No reports of active bleed or heme pos. stools.con tinue pepcid bidremains on eliquis and ASAHx. CKDFe level low - added FeSO4 325 mg and Vit C 500 mg qd - continueCB C q month x 3 to trend, last done in Apr., no order seen in EMR, will request check x 1 Gastroesop hageal reflux disease 628653059 K21.00 No current sxs.Contin uefamotidi ne 20 mg bidMonitor GI sxs. [id number] Zully Moyer NP [address] [address] 06/27/2024 13:13:52 06/28/2024 12:58:16 Chronic kidney disease stage 3A 044631296 N18.31 Stable since last hospitaliz ation.Cont inue to avoid nephrotoxi c meds as able.Monit or labs.Renal consult prn. Essential hypertension 42915051 I10 borderline SBPs, but within range for permissive HTN.Contin uehydralaz ine 25 mg TIDmetopro lol ER 25 mg qdfurosemi de 60 mg qdamlodipi ne 5 mg BID.KCl 20 mg TID to prevent hypokalemi a.BP goal for this elderly woman is permissive HTN, with SBP<150 and DBP<90Moni tor BP and labs.06/27 labs bmp and cbc on 06/28 Edema of l ower extremity 127247701 R60.0 pt with increased lower ext edema now appearing increased from baselinele ft is 1+ edema, however right is 3+edema and tender, without any trauma or bruising.D DX will ro dependent edema/dvt/ CHF / 19start U/S right foot/lower ext ro dtadd lasix 20 mg po daily x 3 daysstart danish wrap to right lower ext for increased swelling, often noncomplia nt with tedselevat e leg as tolmonitor closelycou ld be related to possible underlying 06/27 labs bmp and cbc on 06/28 Health Concerns Section Related Observation LastModified by Organization Detai ls LastModified Time None Recorded Concern Status LastModified by Organization Details LastModified Time None Recorded Advance Directives Directive Y: Payers Encounter Date Sequence Insurance Name Policy Number Policy [place] Covered Member ID [place] Member ID Guarantor Name 04/25/2024 2 [place] Vane Rita [id number] Vane Rita 04/25/2024 1 [place] [employer] Vane B [place] [id number] Vane Rita 05/06/2024 2 [place] Vane Rita [id number] Vane Rita 05/06/2024 1 [place] [employer] Vane B [place] [id number] Vane [place] 05/20/2024 2 [place] [id number] Vane Rita 05/20/2024 1 [place] [employer] Vane B [place] [id number] Vane Rita 06/20/2024 2 [place] Vane Rita [id number] Vane [place] 06/20/2024 1 [place] [employer] Vane B [place] [id number] Vane Rita 06/27/2024 2 [place] Vane [place] [id number] Vane [place] 06/27/2024 1 [place] [employer] Vane B [place] [id number] Vane Rita Notes Date Note Type Note Provider Name and Address Organization Details Recorded Time 04/25/2024 text/html Vane is an 89 yo LT resident seen for an acute rounding visit. PMH: HTN, COPD on home O2, PAfib now on Eliquis, CAD with ? hx of [place] in 2019, hypothyroidism, AAA-3.4 cm, and right adnexal mass-9 cm-no tx needed per GOVERNMENT SALES MANAGER as tumor markers neg. 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 Vane is seen to follow up after testing positive for covid on 04/15. She was started molnupiravir and supplemental treatments. On 04/15, prednisone burst and duonebs added, and CXR repeated showing NAD. She is now covid recovered with moderate course. Labs ordered on 04/19 and not done. Labs reodered and still not done. Unclear if she refused, lab was able to get blood, or other? Due to progressive weight loss, remeron was added and dose increased on 04/10 to 15 mg q HS. kimberly. well so far. Weights reviewed, and look like they are starting to stabilize around 115 lbs, however the last weight was 106 lbs on 04/24 and unclear if this is accurate. [employer] added supplements to her regimen. On exam, pt is seen sitting up in bed with pursed lip breathing and on 4 liters of o2 via cannula. She states she feels the o2 isn't giving her enough air. On further investigation her cannula is kinked and after unkinking the tubing and a duoneb she recovers. She states she is okay and waves her hand in this motion. She reports eating, drinking and moving her bowels. She denies any pain. MOLST: full code Zully Moyer, KEILA [address] [facility], [address], [place], [address], [facility] [employer] 04/25/2024 22:09:12 05/06/2024 text/html Vane is an 89 yo LTC resident seen for an acute visit. PMH: HTN, COPD on home O2, PAfib now on Eliquis, CAD with ? hx of [place] in [place], hypothyroidism, AAA-3.4 cm, and right adnexal mass-9 cm-no tx needed per GOVERNMENT SALES MANAGER as tumor markers neg. 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 Vane is seen for consitpation. Nursing reported it is hard and she struggles to have BM. Of note: Vane is recovered from covid illness earlier this month and doing well. She remains on mirtazapine for weight loss and overall decline. She is on supplements. It seems weight loss 106lbs from 115 lbs recently over last few weeks. Will have nursing get another weight as this may be inaccurate. On exam,Vane is lying in bed in NAD on 3 liters baseline o2. She states her last BM was the other day and hard . She denies any nausea, vomiting, or abd pain. She is willing to trial some MOM today and start an increased bowel regimen. She is eating her eggs and toast this am. MOLST: full code Zully Moyer NP [address] [facility], [address], [place], [address], [facility] [employer] 05/06/2024 10:26:48 05/20/2024 text/html Vane is an 89 yo LTC resident seen for an acute visit. PMH: HTN, COPD on home O2, PAfib now on Eliquis, CAD with ? hx of [place] in [place], hypothyroidism, AAA-3.4 cm, and right adnexal mass-9 cm-no tx needed per GOVERNMENT SALES MANAGER as tumor markers neg. 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 She is seen for a stumped left toe per nursing. Her right great toe is pink without inflammation, drainage or open area. Her 2nd metatarsal is pink at the tip with a spot of old blood dried into the nail. Nails are trimmed and no open areas or overt warmth to toes. She has a blue air boot on for a boggy heel, her toe an 2nd digit also boggy with risk for breakdown and all recommended for skin prep bid for now. Vane states pain is mostly resolved but requests a tylenol and nursing is bringing to pt. On exam, she is lying in bed with foot up. States she hit her great toe on the door jam and initially felt pain, but now resolving. NAD and feels ok other than that. No s/s of dislocation or fracture or ecchymosis at this time. No s/s of infection at this time. MOLST: full code Zully Moyer NP [address] [facility], [address], [place], [address], [facility] [employer] 05/21/2024 11:24:14 06/20/2024 text/html Vane is seen tod for a routine visit. She is an 89 yo LTC resident, PMH includes AAA, anemia, asthenia, weight loss, AF, CKD, COPD, chronic pain, VCF, constipation, CAD, HTN, GERD, hypothyroidism, ovarian mass. Since her last routine visit, she has recovered from covid (dx'd in April) and laxatives were added for constipation, now moving bowels better.VSS, no CP issues on current meds.Remains on remeron for mood and weight loss, weights stabilizing, currently 116 lbs.TSH checked in February, WNR on current dose of levothyroxine. Upon exam today, Vane is in bed, alert, looks good, better color, cheeks fofana. In good spirits, has no complaints, remains on O2 to maintain sats.No concerns per nsg. PMH: HTN, COPD on home O2, PAfib now on Eliquis, CAD with ? hx of [place] in [place], hypothyroidism, AAA-3.4 cm, and right adnexal mass-9 cm-no tx needed per GOVERNMENT SALES MANAGER as tumor markers neg. 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 PMH: HTN, COPD on home O2, PAfib now on Eliquis, CAD with ? hx of [place] in [place], hypothyroidism, AAA-3.4 cm, and right adnexal mass-9 cm-no tx needed per GOVERNMENT SALES MANAGER as tumor markers neg. 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 She is an 89 yo LTC resident, PMH includes AAA, anemia, asthenia, weight loss, AF, CKD, COPD, chronic pain, VCF, constipation, CAD, HTN, GERD, hypothyroidism, ovarian mass. Vane is seen for increased right leg swelling greater than left today. She has bilateral leg edema at baseline on lasix 60 mg po daily for CHF. She is on 3 liters o2 at baseline and no changes except she is noncompliant at times and removes the o2 and has shortness of breath. Fair aeration to bilateral lungs today. On eliquis for afib already with decreased suspicion for dvt/clot. Due to appearance will get u/s to rule out dvt. On exam today, Vane is motoring in wheelchair in [facility]. She complains of her right foot/leg pain and swelling. She is noncompliant with compression stockings.Her right foot/calf does not have overt warmth, maceration, or drainage. She has stock indentions and refuses to have her sock cut today. MOLST: full code Zully Moyer, KEILA [address] [facility], [address], [place], [address], [facility] [employer] 06/27/2024 14:35:46 OBGyn Episode No OBEpisode recorded.
--- OUTSIDE RECORDS SUMMARY | 2024-07-28 14:42 | XMS_ITS | Continuity of Care Document ---
Author Organization [facility], [facility] Address [address] [place] [address] Care Team Providers Care Junior Linux Systems Administrator Name Role Phone REGTAMRA BOWLES - 2ND FLOOR OTHER Assessment No [...] Address Organization Details Recorded Time Essential hypertension 89447943 Active 2023 Zully Moyer NP [address], [place], [address], [facility] 4 12:51:24 Chronic obstructive pulmonary disease 78819062 Active 2023 Zully Moyer NP [address], [address], [place], [address], [facility] 4 12:51:37 Atrial fibrillation 79812996 Active 2023 Zully Moyer NP [address], [address], [place], [address], [facility] 4 12:52:28 Abdominal aortic aneurysm 805472609 Active 2023 Zully Moyer NP [address], [address], [place], [address], [facility] 4 12:53:01 Hypothyroidism 47683933 Active 2023 Zully Moyer NP [address], [address], [place], [address], [employer] [facility] 4 12:53:41 Tubo-ovarian mass 359018451 Active 2023 Zully Moyer NP [address], [address], [place], [address], [facility] [employer] [facility] 4 12:53:57 Acute kidney injury 52846391 Active 2023 Zully Moyer NP [address], [address], [place], [address], [facility] [employer] [facility] 4 12:54:06 Compression fracture Active 2023 Zully Moyer NP [address], [address], [place], [address], [employer] [facility] 4 12:55:00 Asthenia 42444384 Active 2023 Zully Moyer NP [address], [address], [place], [address], [employer] [facility] 4 13:04:28 Gastroesophage al reflux disease 493967220 Active 2023 Zully Moyer NP [address], [address], [place], [address], [facility] 4 13:11:38 Chronic pain 90184592 Active 2023 Zully Moyer NP [address], [place], [address], [facility] 4 13:17:02 Coronary arterioscleros is 87073952 Active 2023 Zully Moyer NP [address], [address], [place], [address], [facility] 4 13:17:49 Constipation 97378748 Active 2023 Zully Moyer NP [address], [address], [place], [address], [facility] 4 13:18:47 Abnormal weight loss 973889830 Active 2023 Sanjuanita Diaz MD [address], [address], [place], [address], [facility] 4 15:54:21 Hypokalemia 04856770 Active 2023 Sanjuanita Diaz MD [address] [facility], [address], [place], [address], [facility] 4 16:06:58 Chronic kidney disease stage 3A 788789781 Active 2023 Sanjuanita Diaz MD [address] [facility], [address], [place], [address], [facility] 4 16:15:00 Anemia 131556144 Active 2023 LEONARD BROWNING NP [address] [facility], [address], [place], [address], [facility] 4 12:11:57 Problem Notes None recorded. Medical Equipment None Reported. Allergies Allergen ID Allergen Name Allergen Category Reaction Reaction Severity Criticality Documentation Date Start Date Code Code System Note Provider Name and Address Organization Details Recorded Time [id number] 29b50 adhesive tape environme nt,medica tion other [facility] 01/22/2024 09264 UNK Not Available Not Available Not Available [id number] 29b50 codeine medicatio n other Not available [facility] 01/22/2024 2670 RxNorm Not Available Not Available Not Available [id number] 29b50 Iodinated contrast media (substanc e) medicatio n other Not available [facility] 01/22/2024 43693 2004 SNOMED Not Available Not Available Not Available [id number] 29b50 iodine medicatio n other Not available [facility] 01/22/2024 5933 RxNorm Not Available Not Available Not Available [id number] 29b50 oxycodone medicatio n other Not available [facility] 01/22/2024 7804 RxNorm Not Available Not Available Not Available [id number] 29b50 papaya extract food,medi cation other Not available [facility] 01/22/2024 93584 12 RxNorm Not Available Not Available Not Available [id number] 29b50 strawberr y allergeni c extract food other Not available [facility] 01/22/2024 17004 4 RxNorm Not Available Not Available Not Available [id number] [id number] 29b50 procaine hydrochlo ride medicatio n other Not available [facility] 01/22/2024 75793 8 RxNorm Not Available Not Available Not Available [id number] cc320 acetamino phen / hydrocodo ne medicatio n nausea vomiting Not available Not available [facility] 01/22/2024 33478 2 RxNorm Not Available Not Available Not Available [id number] 29b50 pineapple extract food other Not available [facility] 01/22/2024 51167 74 RxNorm Not Available Not Available Not [...] Not Available Vitals Date Recorded Body height Provider Name an d Address Organization Details Last Updated DateTime 06/27/2024 165.1 cm Erendira Olivo P [address] [facility] [address], [place], [address], [employer] 06/27/2024 13:36:22 Social History Question Answer Notes LastModified by Organizat ion Details LastModified Time Tobacco Smoking Status Never Smoker Zully Moyer NP [address] [facility] [address], [place], [address], [employer] [facility] 01/22/2024 13:59:17 Do You Have An Advance Directive? Yes Information not available 01/25/2024 What Is Your Level Of Alcohol Consumption? None Information not available 01/22/2024 What Is Your Code Status? Full Code Information not available 01/22/2024 Where Do You Live? SingleLevelHouse Information not available 01/25/2024 Legal Guardian? No Informati on not available 01/25/2024 Do You Have A Medical Power Of [place]? Yes Information not available 01/25/2024 What Was [...] SNOMED-CT Code Diagnosis ICD10 Code Diagnosis Note [id number] [facility] [address] [place] [address] 06/20/2024 13:45:08 06/21/2024 14:27:49 Acute COVID-19 9823215746 U07.1 Now resolvedTe sted covid positive on omple marcelo molnupirav ir 800mg po bid x 5days, prednisone burst, and duonebs.Mo nitor, covid currently in facility again, blanket testing on unit qod, results neg. so far. 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 continue:s upplementa l O2 by CO, titrate to maintain sats 88-92% (seems 3liters baseline)m ontelukast 10 mg qhsduoneb bid and q 6 hrs prnrobitus sin prnMonitor resp status. Abnormal weight loss 267 927051 R63.4 Over 40 lb. wt. loss since September.Betsy gallardo added 01/24, dose increased 04/10 to 15 mg. qhs.Weight s stabilizin g - currently 116 lbs.Dietic rajiv following, continue with supplement s.Monitor Atrial fibrillation 4943 6004 I48.0 Continueel iquis 2.5 mg BID for AC.metopro lol ER 25 mg qd for rate control.Mo nitor HR and bleeding risk. Chronic ki dney disease stage 3A 160094598 N18.31 Stable since last hospitaliz ation.Cont inue to avoid nephrotoxi c meds as able.Monit or labs.Renal consult prn. Essential hypertension 35738599 I10 borderline SBPs, but within range for permissive HTN.Contin uehydralaz ine 25 mg TIDmetopro lol ER 25 mg qdfurosemi de 60 mg qdamlodipi ne 5 mg BID.KCl 20 mg TID to prevent hypokalemi a.BP goal for this elderly woman is permissive HTN, with SBP<150 and DBP<90Moni tor BP and labs. Coronary arteriosclerosis 46842505 I25.10 No recent sxs.Contin ue meds as aboveASA 81 mg qd.Monitor for sxs. Hypothyroidism 26422848 E03.8 02/29/24 TSH = 2.19Contin uelevothyr oxine 50 mcg //Mon/ Sun and 75 mcg //FMonit or TSH yearly and prn Anemia 242381072 D64.9 Hgb 11 -> 9.1 -> 9.4 [...] check x 1 Gastroesop hageal reflux disease 589871244 K21.00 No current sxs.Contin uefamotidi ne 20 mg bidMonitor GI sxs. [id number] Zully Moyer NP [address] [address] 06/27/2024 13:13:52 06/28/2024 12:58:16 Chronic kidney disease stage 3A 824560906 N18.31 Stable since last hospitaliz ation.Cont inue to avoid nephrotoxi c meds as able.Monit or labs.Renal consult prn. Essential hypertension 15166442 I10 borderline SBPs, but within range for permissive HTN.Contin uehydralaz ine 25 mg TIDmetopro lol ER 25 mg qdfurosemi de 60 mg qdamlodipi ne 5 mg BID.KCl 20 mg TID to prevent hypokalemi a.BP goal for this elderly woman is permissive HTN, with SBP<150 and DBP<90Moni tor BP and labs.06/27 labs bmp and cbc on 06/28 Edema of l ower extremity 259305629 R60.0 pt with increased lower ext edema now appearing increased from baselinele ft is 1+ edema, however right is 3+edema and tender, without any trauma or bruising.D DX will ro dependent edema/dvt/ CHF [id number]/ 19start U/S right foot/lower ext ro dtadd [...] by Organization Details LastModified Time None Recorded Payers Encounter Date Sequence Insurance Name Policy Number Policy [place] Covered Member ID Marin Member ID Guarantor Name 06/27/2024 2 [place] [facility] Vane Rita [id number] [address] 06/27/2024 1 [place] [employer] Vane B [address] [id number] Vane Almazanemer Notes Date Note Type Note Provider Name and Address Organization Details Recorded Time 06/27/2024 text/html Vane is seen tod ay for an acute visit. PMH: HTN, COPD on home O2, PAfib now on Eliquis, CAD with ? hx of [place] in 2019, hypothyroidism, AAA-3.4 cm, and right adnexal mass-9 cm-no tx needed per MANHOLE BUILDER as tumor markers neg. and most likely [...] today, Vane is motoring in wheelchair in [facility]. She complains of her right foot/leg pain and swelling. She is noncompliant with compression stockings.Her right foot/calf does not have overt warmth, maceration, or drainage. She has stock indentions and refuses to have her sock cut today. MOLST: full code Zully Moyer, KEILA [address] [facility], [address], [place], [address], [facility] [employer] 06/27/2024 14:35:46 OBGyn Episode No OBEpisode recorded.
--- OUTSIDE RECORDS SUMMARY | 2024-07-28 14:42 | XMS_ITS | Continuity of Care Document ---
Author Organization [facility] Address [address] [place] [address] Care Team Providers Care Graphic Design Assistant Name Role Phone REGTAMRA BOWLES - 2ND [...] Address Organization Details Recorded Time Essential hypertension 25011450 Active 2023 Zully Moyer NP [address], [place], [address], [facility] 4 12:51:24 Chronic obstructive pulmonary disease 13834624 Active 2023 Zully Moyer NP [address], [address], [place], [address], [facility] 4 12:51:37 Atrial fibrillation 11706593 Active 2023 Zully Moyer NP [address], [address], [place], [address], [facility] 4 12:52:28 Abdominal aortic aneurysm 508124060 Active 2023 Zully Moyer NP [address], [address], [place], [address], [facility] 4 12:53:01 Hypothyroidism 72066000 Active 2023 Zully Moyer NP [address], [address], [place], [address], [facility] 4 12:53:41 Tubo-ovarian mass 616988362 Active 2023 Zully Moyer NP [address], [address], [place], [address], [facility] 4 12:53:57 Acute kidney injury 89691741 Active 2023 Zully Moyer NP [address], [address], [place], [address], [facility] 4 12:54:06 Compression fracture Active 2023 Zully Moyer NP [address], [address], [place], [address], [facility] 4 12:55:00 Asthenia 99203564 Active 2023 Zully Moyer NP [address], [address], [place], [address], [facility] 4 13:04:28 Gastroesophage al reflux disease 997939133 Active 2023 Zully Moyer NP [address], [address], [place], [address], [facility] 4 13:11:38 Chronic pain 51314328 Active 2023 Zully Moyer NP [address], [address], [place], [address], [facility] 4 13:17:02 Coronary arterioscleros is 22393727 Active 2023 Zully Moyer NP [address], [address], [place], [address], [facility] 4 13:17:49 Constipation 02653080 Active 2023 Zully Moyer NP [address], [address], [place], [address], [facility] 4 13:18:47 Abnormal weight loss 768020795 Active 2023 Sanjuanita Diaz MD [address], [address], [place], [address], [facility] 4 15:54:21 Hypokalemia 76694034 Active 2023 Sanjuanita Diaz MD [address] [facility], [address], [place], [address], [facility] 4 16:06:58 Chronic kidney disease stage 3A 400866614 Active 2023 Sanjuanita Diaz MD [address] [facility], [address], [place], [address], [facility] 4 16:15:00 Anemia 641470604 Active 2023 LEONARD BROWNING NP [address] [facility], [address], [place], [address], [facility] 4 12:11:57 Problem Notes None recorded. Medical Equipment None Reported. Allergies Allergen ID Allergen Name Allergen Category Reaction Reaction Severity Criticality Documentation Date Start Date Code Code System Note Provider Name and Address Organization Details Recorded Time [id number] 29b50 adhesive tape environme nt,medica tion other [facility] 01/22/2024 45599 UNK Not Available Not Available Not Available [id number] [id number] 29b50 codeine medicatio n other Not available [facility] 01/22/2024 2670 RxNorm Not Available Not Available Not Available [id number] [id number] [id number] 29b50 Iodinated contrast media (substanc e) medicatio n other Not available [facility] 01/22/2024 36060 2004 SNOMED Not Available Not Available Not Available [id number] 5b0a2700k 29b50 iodine medicatio n other Not available [facility] 01/22/2024 5933 RxNorm Not Available Not Available Not Available [id number] [id number] 29b50 oxycodone medicatio n other Not available [facility] 01/22/2024 7804 RxNorm Not Available Not Available Not Available [id number] 5b7k4392w 29b50 papaya extract food,medi cation other Not available [facility] 01/22/2024 11791 12 RxNorm Not Available Not Available Not Available [id number] [id number] 29b50 strawberr y allergeni c extract food other Not available [facility] 01/22/2024 47032 4 RxNorm Not Available Not Available Not Available [id number] p1097211l [id number] 29b50 procaine hydrochlo ride medicatio n other Not available [facility] 01/22/2024 56583 8 RxNorm Not Available Not Available Not Available [id number] 71s521cor cc320 acetamino phen / hydrocodo ne medicatio n nausea vomiting Not available Not available [facility] 01/22/2024 17941 2 RxNorm Not Available Not Available Not Available [id number] 2m7i9060b 29b50 pineapple extract food other Not available [facility] 01/22/2024 49118 74 RxNorm Not Available Not Available Not [...] Not Available Vitals Date Recorded Body height Heart rate Respiratory rate Body temperature Oxygen saturation Oxygen saturation in Arterial blood by Pulse oximetry Systolic blood pressure Diastolic blood pressure Provider Name and Address Organization Details Last Updated DateTime 4 165.1 cm 72 /min 18 /min 98 [degF] 98 % 98 % 133 mm[Hg] 69 mm[Hg] LEONADR BROWNING NP [address] [facility], [address], [place], [address], [facility] 4 13:45:57 Social History Question Answer Notes LastModified by Organizat ion Details LastModified Time Tobacco Smoking Status Never Smoker Zully Moyer NP [address] [facility], [address], [place], [address], [facility] 01/22/2024 13:59:17 Do You Have An Advance Directive? Yes Information not available 01/25/2024 What Is Your Level Of Alcohol Consumption? None Information not available 01/22/2024 What Is Your Code Status? Full Code Information not available 01/22/2024 Where Do You Live? SingleLevelHouse Information not available 01/25/2024 Legal Guardian? No Informati on not available 01/25/2024 Do You Have A Medical Power Of Sheet Taker? Yes Information not available 01/25/2024 What Was [...] Provided? No N/a As Pt Is Non-smoker llsheriheim Information not available 01/25/2024 Do You Or [...] SNOMED-CT Code Diagnosis ICD10 Code Diagnosis Note [id number] LEONARD BROWNING NP [address] [address] 06/20/2024 13:45:08 06/21/2024 14:27:49 Acute COVID-19 8538710348 U07.1 Now resolvedTe sted covid positive on omple marcelo molnupirav ir 800mg po bid x 5days, prednisone burst, and duonebs.Mo vicenta, covid currently in facility again, blanket testing on unit qod, results neg. so far. 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 continue:s upplementa l O2 by [place], titrate to maintain sats 88-92% (seems 3liters baseline)m ontelukast 10 mg qhsduoneb bid and q 6 hrs prnrobitus sin prnMonitor resp status. Abnormal weight loss 267 126670 R63.4 Over 40 lb. wt. loss since September.Betsy gallardo added 01/24, dose increased 04/10 to 15 mg. qhs.Weight s stabilizin g - currently 116 lbs.Dietic rajiv following, continue with supplement s.Monitor Atrial fibrillation 4940 2615 I48.0 Continueel iquis 2.5 mg BID for AC.metopro lol ER 25 mg qd for rate control.Mo nitor HR and bleeding risk. Chronic ki dney disease stage 3A 119841586 N18.31 Stable since last hospitaliz ation.Cont inue to avoid nephrotoxi c meds as able.Monit or labs.Renal consult prn. Essential hypertension 30903267 I10 borderline SBPs, but within range for permissive HTN.Contin uehydralaz ine 25 mg TIDmetopro lol ER 25 mg qdfurosemi de 60 mg qdamlodipi ne 5 mg BID.KCl 20 mg TID to prevent hypokalemi a.BP goal for this elderly woman is permissive HTN, with SBP<150 and DBP<90Moni tor BP and labs. Coronary arteriosclerosis 97499197 I25.10 No recent sxs.Contin ue meds as aboveASA 81 mg qd.Monitor for sxs. Hypothyroidism 31499193 E03.8 02/29/24 TSH = 2.19Contin uelevothyr oxine 50 mcg //Sat/ Sun and 75 mcg //FMonit or TSH yearly and prn Anemia 382209132 D64.9 Hgb 11 -> 9.1 -> 9.4 [...] check x 1 Gastroesop hageal reflux disease 484281039 K21.00 No current sxs.Contin uefamotidi ne 20 mg bidMonitor GI sxs. Health Concerns Section Related Observation LastModified by Organization Detai ls LastModified Time None Recorded Concern Status LastModified by Organization Details LastModified Time None Recorded Payers Encounter Date Sequence Insurance Name Policy Number Policy Marin Covered Member ID Marin Member ID Guarantor Name 06/20/2024 2 [place] [facility] Vane Sailnas [id number] Vane [place] 06/20/2024 1 [place] B[place] [employer] Vane Salinas [id number] Vane Salinas Notes Date Note Type Note Provider Name and Address Organization Details Recorded Time 06/20/2024 text/html Vane is seen today for a routine visit. She is an [...] on Eliquis, CAD with ? hx of [place] in 2019, hypothyroidism, AAA-3.4 cm, and right adnexal mass-9 cm-no tx needed per [employer] as tumor markers neg. 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 06/20/2024 14:01:25 OBGyn Episode No OBEpisode recorded.
--- OUTSIDE RECORDS SUMMARY | 2024-07-28 14:42 | XMS_ITS | Continuity of Care Document ---
Author Organization [facility] Address [address] [place] [address] Care Team Providers Care Storage And Backup Administrator Name Role Phone REGTAMRA BOWLES - [...] Address Organization Details Recorded Time Essential hypertension 25845582 Active 2023 Zully Moyer NP [address] , [address], [place], [address], [facility] 4 12:51:24 Chronic obstructive pulmonary disease 83406500 Active 2023 Zully Moyer NP [address], [address], [place], [address], [facility] 4 12:51:37 Atrial fibrillation 72604083 Active 2023 Zully Moyer NP [address], [address], [place], [address], [facility] 4 12:52:28 Abdominal aortic aneurysm 783147061 Active 2023 Zully Moyer NP [address], [address], [place], [address], [facility] 4 12:53:01 Hypothyroidism 07746363 Active 2023 Zully Moyer NP [address], [address], [place], [address], [facility] 4 12:53:41 Tubo-ovarian mass 588089474 Active 2023 Zully Moyer NP [address], [address], [place], [address], [facility] 4 12:53:57 Acute kidney injury 72016365 Active 2023 Zully Moyer NP [address], [address], [place], [address], [facility] [facility] 4 12:54:06 Compression fracture Active 2023 Zully Moyer NP [address], [address], [place], [address], [facility] 4 12:55:00 Asthenia 39966787 Active 2023 Zully Moyer NP [address], [address], [place], [address], [facility] 4 13:04:28 Gastroesophage al reflux disease 489669206 Active 2023 Zully Moyer NP [address], [address], [place], [address], [facility] 4 13:11:38 Chronic pain 59878490 Active 2023 Zully Moyer NP [address], [address], [place], [address], [facility] 4 13:17:02 Coronary arterioscleros is 03624756 Active 2023 Zully Moyer NP [address], [address], [place], [address], [facility] 4 13:17:49 Constipation 99378287 Active 2023 Zully Moyer NP [address], [address], [place], [address], [facility] 4 13:18:47 Abnormal weight loss 279864638 Active 2023 Sanjuanita Diaz MD [address], [address], [place], [address], [facility] 4 15:54:21 Hypokalemia 32070286 Active 2023 Sanjuanita Diaz MD [address], [address], [place], [address], [facility] 4 16:06:58 Chronic kidney disease stage 3A 611328820 Active 2023 Sanjuanita Diaz MD [address], [address], [place], [address], [facility] 4 16:15:00 Anemia 949412585 Active 2023 LEONARD BROWNING NP [address], [address], [place], [address], [facility] 4 12:11:57 Problem Notes None recorded. Medical Equipment None Reported. Allergies Allergen ID Allergen Name Allergen Category Reaction Reaction Severity Criticality Documentation Date Start Date Code Code System Note Provider Name and Address Organization Details Recorded Time [id number] 29b50 adhesive tape environme nt,medica tion other Not available [facility] 01/22/2024 27937 UNK Not Available Not Available Not Available [id number] [id number] 29b50 codeine medicatio n other Not available [facility] 01/22/2024 2670 RxNorm Not Available Not Available Not Available [id number] 4v8j7217t 29b50 Iodinated contrast media (substanc e) medicatio n other Not available [facility] 01/22/2024 00457 2004 SNOMED Not Available Not Available Not Available [id number] [id number] 4e8s5338t 29b50 iodine medicatio n other Not available [facility] 01/22/2024 5933 RxNorm Not Available Not Available Not Available [id number] 0c7b1630j 29b50 oxycodone medicatio n other Not available [facility] 01/22/2024 7804 RxNorm Not Available Not Available Not Available [id number] p5523754q 4u5a4828l 29b50 papaya extract food,medi cation other Not available [facility] 01/22/2024 77809 12 RxNorm Not Available Not Available Not Available [id number] [id number] 5i8d2680q 29b50 strawberr y allergeni c extract food other Not available [facility] 01/22/2024 10193 4 RxNorm Not Available Not Available Not Available [id number] [id number] 8h1k0729v 29b50 procaine hydrochlo ride medicatio n other Not available [facility] 01/22/2024 24544 8 RxNorm Not Available Not Available Not Available [id number] [id number] cc320 acetamino phen / hydrocodo ne medicatio n nausea vomiting Not available Not available [facility] 01/22/2024 97018 2 RxNorm Not Available Not Available Not Available [id number] 6i4m7437n 29b50 pineapple extract food other Not available [facility] 01/22/2024 92188 74 RxNorm Not Available Not Available Not [...] Available Vitals Date Recorded Body height Body mass index (BMI) Body weight Heart rate Respiratory rate Body temperature Oxygen saturation Oxygen saturation in Arterial blood by Pulse oximetry Systolic blood pressure Diastolic blood pressure Provider Name and Address Organization Details Last Updated DateTime 4 165.1 cm 18.8 kg/m2 98045.9 4 g 74 /min 18 /min 98.1 [degF] 95 % 95 % 158 mm[Hg] 73 mm[Hg] Zully Moyer NP [address] [facility] [address], [place], [address], [facility] 4 11:12:35 Social History Question Answer Notes LastModified by Organizat ion Details LastModified Time Tobacco Smoking Status Never Smoker Zully Moyer NP [address] [facility] [address], [place], [address], [facility] 01/22/2024 13:59:17 Do You Have An Advance Directive? Yes Information not available 01/25/2024 What Is Your Level Of Alcohol Consumption? None Information not available 01/22/2024 What Is Your Code Status? Full Code Information not available 01/22/2024 Where Do You Live? SingleLevelHouse Information not available 01/25/2024 Legal Guardian? 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 Chronic ob structive pulmonary disease 77268130 J43.8 At baseline., nsg states cough and [...] tor resp status. Abnormal weight loss 267 503181 R63.4 Over 40 lb. wt. loss since September.Betsy gallardo added 01/24, dose increased 10/2 to 15 mg. qhs.Weight s starting to stabilize around 115 lbs.Dietic rajiv following, continue with supplement s.Monitor Atrial fibrillation 4943 6004 I48.0 Continueel iquis 2.5 mg BID for AC.metopro lol ER 25 mg qd for rate control.Mo nitor HR and bleeding risk. Chronic ki dney disease stage 3A 703317704 N18.31 Stable since last hospitaliz ation.Cont inue to avoid nephrotoxi c meds as able.Monit or labs.Renal consult prn. Essential hypertension 36911824 I10 borderline SBPs, but within range for permissive HTN.Contin uehydralaz ine 25 mg TIDmetopro lol ER 25 mg qdfurosemi de 60 mg qdamlodipi ne 5 mg BID.KCl 20 mg TID to prevent hypokalemi a.BP goal for this elderly woman is permissive HTN, with SBP<150 and DBP<90Moni tor BP and labs. Coronary arteriosclerosis 73451341 I25.10 No recent sxs.Contin ue meds as aboveASA 81 mg qd.Monitor for sxs. Hypothyroidism 23558311 E03.8 TSH sl. high, but good FT4.Contin uelevothyr oxine 50 mcg //Mon/ Sun and 75 mcg //FMonit or TSH yearly and prn Anemia 582904886 D64.9 Hgb 11 -> 9.1 -> 9.4 ->10.5No reports of active bleed or heme pos. stools.con tinue pepcid bidremains on eliquis and ASAHx. CKDFe level low - added FeSO4 325 mg and Vit C 500 mg qdCBC q month x 3 to trend Gastroesop hageal reflux disease 871577987 K21.00 No current sxs.Contin uefamotidi ne 20 mg bidMonitor GI sxs. [id number] Zully Moyer NP [address] [address] 04/25/2024 14:45:39 04/29/2024 09:34:31 Acute COVID-19 5591466557 U07.1 recovered with moderate course with Nausea, chills, aches, fatigue and congestion Tested covid positive on omple marcleo molnupirav ir 800mg po bid x 5days [...] if worsens. Chronic ob structive pulmonary disease 23919231 J43.8 At baseline., nsg states cough and [...] tor resp status. Abnormal weight loss 267 577871 R63.4 Over 40 lb. wt. loss since September.Betsy paulina 15 mg. qhs.Weight s starting to stabilize around 115 lbs. last wgt ? inaccurate (will request another wgt)Dietic rajiv following, continue with supplement s.Monitor Atrial fibrillation 8094 8257 I48.0 Continueel iquis 2.5 mg BID for AC.metopro lol ER 25 mg qd for rate control.Mo nitor HR and bleeding risk. Chronic ki dney disease stage 3A 342298631 N18.31 Stable since last hospitaliz ation.avoi d nephrotoxi c meds as able.Monit or labs.Renal consult prn. Essential hypertension 76864082 I10 borderline SBPs, but within range for permissive HTN.Contin uehydralaz ine 25 mg TIDmetopro lol ER 25 mg qdfurosemi de 60 mg qdamlodipi ne 5 mg BID.KCl 20 mg TID to prevent hypokalemi a.BP goal for this elderly woman is permissive HTN, with SBP<150 and DBP<90Moni tor BP and labs. Coronary arteriosclerosis 73009004 I25.10 No recent sxs.Contin ue meds as aboveASA 81 mg qd.Monitor for sxs. Hypothyroidism 28178936 E03.8 TSH sl. high, but good FT4.Contin uelevothyr oxine 50 mcg //Mon/ Sun and 75 mcg //FMonit or TSH yearly and prn Anemia 236709804 D64.9 stable as above latelyNo reports of active bleed or heme pos. stools.con tinue pepcid bidremains on eliquis and ASAHx. CKDcontFeS O4 325 mg and Vit C 500 mg qdCBC q month x 3 to trend Gastroesop hageal reflux disease 602530073 K21.00 No current sxs.Contin uefamotidi ne 20 mg bidMonitor GI sxs. 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 contsupple mental O2 by NC, titrate to maintain sats 88-92% (seems 3liters baseline)m ontelukast 10 mg qhsduoneb q 6 hrs prn sob/wheezi ng and sched bidrobitus sin (coricidin not avail)Bryanna tor resp status. Acute COVID-19 895896119 8 U07.1 remains improved and recovered with [...] ER if worsens. Abnormal weight loss 267 580785 R63.4 Over 40 lb. wt. loss since [...] control.Mo nitor HR and bleeding risk. Constipation 86955879 K5 9 Continue bowel meds:ajit ax daily05/06 startincre ase colace 100 mg po to twice a daymom 30cc tvhojf3ttc na 1 tab po dailyMonit or bowel function. [id number] [facility] [address] 05/20/2024 16:51:54 05/22/2024 10:02:12 Pain of toe of right foot 3990779326 74352 M79.674 pt stumbed her right great toe and 2nd digit now resolving without obvious s/s of injury.may skin prep 1st and 2nd distal toes for bogginess aswell as right heel which is already being done [facility] Concerns Section Related Observation LastModified by Organization Detai ls LastModified Time None Recorded Concern Status LastModified by Organization Details LastModified Time None Recorded Payers Encounter Date Sequence Insurance Name Policy Number Policy Marin Covered Member ID Marin Member ID Guarantor Name 05/20/2024 2 [place] [facility] Vane Salinas [id number] Vane Salinas 05/20/2024 1 [place] [employer] Vane Salinas [id number] Vane Salinas Notes Date Note Type Note Provider Name and Address Organization Details Recorded Time 05/20/2024 text/html Vane is an 89 yo [facility] resident seen for an acute visit. PMH: HTN, COPD on home O2, PAfib now on Eliquis, CAD with ? 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 and most likely [...] at this time. MOLST: full code Zully Moyer, KEILA [address], [address], [place], [address], [facility] - [facility]with 05/21/2024 11:24:14 OBGyn Episode No OBEpisode recorded.
--- OUTSIDE RECORDS SUMMARY | 2024-07-28 14:43 | XMS_ITS | Continuity of Care Document ---
Author Organization [facility], [facility] Address [address] [place] [address] Care Team Providers Care Malt House Loader Name Role Phone REGTAMRA BOWLES - 2ND [...] Address Organization Details Recorded Time Essential hypertension 87324856 Active 2023 Zully Moyer NP [address] , [address], [place], [address], [facility] 4 12:51:24 Chronic obstructive pulmonary disease 33167559 Active 2023 Zully Moyer NP [address], [address], [place], [address], [facility] 4 12:51:37 Atrial fibrillation 29680609 Active 2023 Zully Moyer NP [address], [address], [place], [address], [facility] 4 12:52:28 Abdominal aortic aneurysm 529314911 Active 2023 Zully Moyer NP [address], [address], [place], [address], [facility] 4 12:53:01 Hypothyroidism 01682844 Active 2023 Zully Moyer NP [address], [address], [place], [address], [facility] 4 12:53:41 Tubo-ovarian mass 635549748 Active 2023 Zully Moyer NP [address], [address], [place], [address], [facility] [employer] [facility] 4 12:53:57 Acute kidney injury 36674556 Active 2023 Zully Moyer NP [address], [address], [place], [address], [facility] [employer] [employer] [facility] 4 12:54:06 Compression fracture Active 2023 Zully Moyer NP [address], [address], [place], [address], [facility] 4 12:55:00 Asthenia 44727871 Active 2023 Zully Moyer NP [address], [address], [place], [address], [facility] 4 13:04:28 Gastroesophage al reflux disease 887645859 Active 2023 Zully Moyer NP [address], [address], [place], [address], [facility] 4 13:11:38 Chronic pain 04636854 Active 2023 Zully Moyer NP [address], [address], [place], [address], [facility] 4 13:17:02 Coronary arterioscleros is 62546612 Active 2023 Zully Moyer NP [address], [address], [place], [address], [facility] 4 13:17:49 Constipation 69309146 Active 2023 Zully Moyer NP [address], [address], [place], [address], [facility] 4 13:18:47 Abnormal weight loss 320985617 Active 2023 Sanjuanita Diaz MD [address], [address], [place], [address], [facility] 4 15:54:21 Hypokalemia 19275750 Active 2023 Sanjuanita Diaz MD [address] [facility], [address], [place], [address], [facility] 4 16:06:58 Chronic kidney disease stage 3A 321003123 Active 2023 Sanjuanita Diaz MD [address] [facility], [address], [place], [address], [facility] 4 16:15:00 Anemia 232901921 Active 2023 LEONARD BROWNING NP [address] [facility], [address], [place], [address], [facility] 4 12:11:57 Problem Notes None recorded. Medical Equipment None Reported. Allergies Allergen ID Allergen Name Allergen Category Reaction Reaction Severity Criticality Documentation Date Start Date Code Code System Note Provider Name and Address Organization Details Recorded Time [id number] w8300801m [id number] 29b50 adhesive tape environme nt,medica tion other Not available [facility] 01/22/2024 80868 UNK Not Available Not Available Not Available [id number] 7b9u1075m 29b50 codeine medicatio n other Not available [facility] 01/22/2024 2670 RxNorm Not Available Not Available Not Available [id number] 29b50 Iodinated contrast media (substanc e) medicatio n other [facility] available [facility] 01/22/2024 11583 2004 SNOMED Not Available Not Available Not Available [id number] [id number] 29b50 iodine medicatio n other [facility] available [facility] 01/22/2024 5933 RxNorm Not Available Not Available Not Available [id number] 29b50 oxycodone medicatio n other Not available [facility] 01/22/2024 7804 RxNorm Not Available Not Available Not Available [id number] 29b50 papaya extract food,medi cation other Not available [facility] 01/22/2024 07180 12 RxNorm Not Available Not Available Not Available [id number] 29b50 strawberr y allergeni c extract food other Not available [facility] 01/22/2024 74959 4 RxNorm Not Available Not Available Not Available [id number] [id number] 29b50 procaine hydrochlo ride medicatio n other Not available [facility] 01/22/2024 56747 8 RxNorm Not Available Not Available Not Available [id number] cc320 acetamino phen / hydrocodo ne medicatio n nausea vomiting Not available Not available [facility] 01/22/2024 94453 2 RxNorm Not Available Not Available Not Available [id number] 29b50 pineapple extract food other Not available [facility] 01/22/2024 43724 74 RxNorm Not Available Not Available Not [...] Details Last Updated DateTime 4 165.1 cm 94815.7 9 g 64 /min 18 /min 97.5 [degF] 94 % 94 % 117 mm[Hg] 71 mm[Hg] Zully Moyer NP [address] [facility] [address], [place], [address], [facility] 4 10:16:44 Social History Question Answer Notes LastModified by Organizat ion Details LastModified Time Tobacco Smoking Status Never Smoker Zully Moyer NP [address] [facility] [address], [place], [address], [facility] 01/22/2024 13:59:17 Do You Have An Advance Directive? Yes Information not available 01/25/2024 What Is Your Level Of Alcohol Consumption? None Information not available 01/22/2024 What Is Your Code Status? Full Code Information not available 01/22/2024 Where Do You Live? SingleLevelHouse Information not available 01/25/2024 Legal Guardian? No Informati on not available 01/25/2024 Do You Have A Medical Power Of Watchstander? Yes Information not available 01/25/2024 What Was [...] SNOMED-CT Code Diagnosis ICD10 Code Diagnosis Note [id number] Zully Moyre NP [facility] [address] 04/11/2024 12:49:36 04/12/2024 10:14:46 Abnormal weight loss 041632929 R63.4 44# wt loss since 09/2023.Con tinues to lose weight, currently 112.5 lbs.contRe el 15mg po qhs, recently increasedD ietician following, continue with supplement s. Acute uppe r respiratory infection 90513013 J06.9 pt with nausea, chills, aches, and [...] 3liters baselinemo nitor and encourage light diet [id number] [facility] [address] 04/15/2024 15:33:07 04/16/2024 09:29:22 Acute COVID-19 9418018778 U07.1 pt with nausea, chills, aches, fatigue [...] 3liters baselinemo nitor and encourage light diet [id number] Zully Moyer NP [address] [address] 04/18/2024 11:20:20 04/22/2024 08:46:23 Acute COVID-19 5782547232 U07.1 pt with nausea, chills, aches, fatigue [...] light diet Chronic ob structive pulmonary disease 64661529 J43.8 At baseline., nsg states cough and [...] ussin (coricidin not avail)Bryanna tor resp status. [id number] LEONARD BROWNING NP [facility] [place] [address] [place] [address] 04/23/2024 13:42:19 04/24/2024 12:26:36 Acute COVID-19 8352635496 U07.1 Nausea, chills, aches, fatigue and congestion [...] if worsens. Chronic ob structive pulmonary disease 81970567 J43.8 At baseline., nsg states cough and [...] tor resp status. Abnormal weight loss 267 265879 R63.4 Over 40 lb. wt. loss since September.Betsy gallardo added 01/24, dose increased 04/10 to 15 mg. qhs.Weight s starting to stabilize around 115 lbs.Dietic rajiv following, continue with supplement s.Monitor Atrial fibrillation 1063 6004 I48.0 Continueel iquis 2.5 mg BID for AC.metopro lol ER 25 mg qd for rate control.Mo nitor HR and bleeding risk. Chronic ki dney disease stage 3A 022674376 N18.31 Stable since last hospitaliz ation.Cont inue to avoid nephrotoxi c meds as able.Monit or labs.Renal consult prn. Essential hypertension 74075627 I10 borderline SBPs, but within range for permissive HTN.Contin uehydralaz ine 25 mg TIDmetopro lol ER 25 mg qdfurosemi de 60 mg qdamlodipi ne 5 mg BID.KCl 20 mg TID to prevent hypokalemi a.BP goal for this elderly woman is permissive HTN, with SBP<150 and DBP<90Moni tor BP and labs. Coronary arteriosclerosis 92127622 I25.10 No recent sxs.Contin ue meds as aboveASA 81 mg qd.Monitor for sxs. Hypothyroidism 13402329 E03.8 TSH sl. high, but good FT4.Contin uelevothyr oxine 50 mcg //Sat/ Sun and 75 mcg //FMonit or TSH yearly and prn Anemia 585037615 D64.9 Hgb 11 -> 9.1 -> 9.4 ->10.5No reports of active bleed or heme pos. stools.con tinue pepcid bidremains on eliquis and ASAHx. CKDFe level low - added FeSO4 325 mg and Vit C 500 mg qdCBC q month x 3 to trend Gastroesop hageal reflux disease 191586182 K21.00 No current sxs.Contin uefamotidi ne 20 mg bidMonitor GI sxs. [id number] Zully Moyer NP [address] [address] 04/25/2024 14:45:39 04/29/2024 09:34:31 Acute COVID-19 8377771629 U07.1 recovered with moderate course with Nausea, [...] if worsens. Chronic ob structive pulmonary disease 06283674 J43.8 At baseline., nsg states cough and [...] tor resp status. Abnormal weight loss 267 476618 R63.4 Over 40 lb. wt. loss since [...] risk. Chronic ki dney disease stage 3A 144404116 N18.31 Stable since last hospitaliz ation.avoi d nephrotoxi c meds as able.Monit or labs.Renal consult prn. Essential hypertension 65276054 I10 borderline SBPs, but within range for permissive HTN.Contin uehydralaz ine 25 mg TIDmetopro lol ER 25 mg qdfurosemi de 60 mg qdamlodipi ne 5 mg BID.KCl 20 mg TID to prevent hypokalemi a.BP goal for this elderly woman is permissive HTN, with SBP<150 and DBP<90Moni tor BP and labs. Coronary arteriosclerosis 83749008 I25.10 No recent sxs.Contin ue meds as aboveASA 81 mg qd.Monitor for sxs. Hypothyroidism 17335022 E03.8 TSH sl. high, but good FT4.Contin uelevothyr oxine 50 mcg //Mon/ Sun and 75 mcg //FMonit or TSH yearly and prn Anemia 995274276 D64.9 stable as above latelyNo reports of active bleed or heme pos. stools.con tinue pepcid bidremains on eliquis and ASAHx. CKDcontFeS O4 325 mg and Vit C 500 mg qdCBC q month x 3 to trend Gastroesop hageal reflux disease 931555384 K21.00 No current sxs.Contin uefamotidi ne 20 mg bidMonitor GI sxs. 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 contsupple mental O2 by NC, titrate to maintain sats 88-92% (seems 3liters baseline)m ontelukast 10 mg qhsduoneb q 6 hrs prn sob/wheezi ng and sched bidrobitus sin (coricidin not avail)Bryanna tor resp status. Acute COVID-19 595574990 8 U07.1 remains improved and recovered with [...] ER if worsens. Abnormal weight loss 267 237985 R63.4 Over 40 lb. wt. loss since September.cont Remeron 15 mg. qhs.Weight s starting to stabilize around 115 lbs. last wgt ? inaccurate (will request another wgt) and now showing 106 lbsDietici an following, continue with supplement s.Monitor Atrial fibrillation 4943 6001 I48.0 Continueel iquis 2.5 mg BID for AC.metopro lol ER 25 mg qd for rate control.Mo nitor HR and bleeding risk. Constipation 23277510 K5 9.09 Continue bowel meds:ajit ax daily05/06 startincre ase colace 100 mg po to twice a daymom 30cc [id number] na 1 tab po dailyMonit or bowel function. Health Concerns Section Related Observation LastModified by Organization Detai ls LastModified Time None Recorded Concern Status LastModified by Organization Details LastModified Time None Recorded Payers Encounter Date Sequence Insurance Name Policy Number Policy Marin Covered Member ID Marin Member ID Guarantor Name 05/06/2024 2 [place] [facility]ane Salinas [id number] Vane Salinas 05/06/2024 1 [place] B-[place] [facility] Vane Tylerr [id number] Vane Salnias Notes Date Note Type Note Provider Name and Address Organization Details Recorded Time 05/06/2024 text/html Vane is an 89 yo [facility] resident seen for an acute visit. PMH: HTN, COPD on home O2, PAfib now on Eliquis, CAD with ? hx of [place] in 2019, hypothyroidism, AAA-3.4 cm, and right adnexal mass-9 cm-no tx needed per [employer] SUPERVISOR as tumor markers neg. and most likely [...] toast this am. MOLST: full code Zully Moyer, KEILA [address] [facility], [address], [place], [address], [place] - [place] 05/06/2024 10:26:48 OBGyn Episode No OBEpisode recorded.
[2024-07-28 15:28] LABS: MANUAL DIFF FLAG NO
[2024-07-28 15:31] LABS: Basophils Absolute Auto 0.1 X10*3/uL (0.0-0.2); Basophils Percent Auto 0.3 % (0-2); Eosinophils Absolute Auto 0.1 X10*3/uL (0.0-0.4); Hematocrit 37.9 % (37.0-47.0); Hemoglobin 12.8 g/dl (12.0-16.0); Imm Gran Abs Auto 0.09 X10*3/uL (0.00-0.03); Imm Gran Pct Auto 0.6 % (0.0-0.4); Lymphocytes Absolute Auto 0.8 X10*3/uL (1.2-4.9); Lymphocytes Percent Auto 5.4 % (20-40); Mean Corpuscular HGB Conc 33.8 g/dl (31.0-35.0); Mean Corpuscular Hemoglobin 30.5 pg (27.0-33.0); Mean Corpuscular Volume 90.2 fL (80.0-98.0); Mean Platelet Volume 9.7 fL (9.4-12.3); Monocytes Absolute Auto 0.7 X10*3/uL (0.1-1.2); Monocytes Percent Auto 4.8 % (2-11); Neutrophils Absolute Auto 12.9 x10*3/uL (2.0-8.3); Neutrophils Percent Auto 87.9 % (45-73); Platelet Count 336 X10*3/uL (160-400); Red Cell Distribution Width 12.5 % (11.0-16.0); White Blood Count 14.7 X10*3/uL (4.8-10.8)
--- NOTE | 2024-07-28 15:35 | MHC.EDTECH ---
This pct assumed care of Patient at 1500 ,ekg taken and was read by Provider ,blood drawn and sent to lab .Patient was soiled with large amount of loose stool ,care given ,all extra linen removed from underneath Patient ,warm blanket given ,Patient was hooked up to filer repairer by this pct ,no apparent distress noted ,Patient watching television ,Call peters within Pt reach .
[2024-07-28 15:46] LABS: Alanine Aminotransferase < 6 U/L (0-31); Albumin Level 3.1 g/dL (3.5-5.0); Anion Gap 15 (12-20); Aspartate Amino Transferase 27 U/L (5-31); Bilirubin Total 0.3 mg/dL (0.0-1.0); Blood Urea Nitrogen 20 mg/dL (9-16); Calcium 9.1 mg/dL (8.4-10.2); Carbon Dioxide 25 mmol/L (22-29); Chloride 102 mmol/L (96-108); Creatinine Clr Calc Pharmacy 37.9; Estimated Glomerular Filt Rate 55; Glucose Random 124 mg/dL (60-115); Potassium 3.4 mmol/L (3.3-5.1); Sodium 139 mmol/L (135-145); Total Protein 7.3 g/dL (6.5-8.0)
[2024-07-28 15:50] LABS: Troponin-I High Sensitivity 9.7 ng/L (<3.5-17.0)
--- NOTE | 2024-07-28 16:00 | ED_ITS ---
HPI - Chest Pain General Chief Complaint: Chest Pain Stated Complaint: CP VOMITING Time Seen by Provider: 07/28/24 15:58 Source: patient and EMS Mode of arrival: EMS Limitations: physical limitation (patient has metabolic encephalopathy at base line) History of Present Illness ED Provider: Edith Espana PA-C HPI narrative: Patient is an 89 year old assigned female at with a history of metabolic encephalopathy, chronic respiratory failure on oxygen via nasal cannula, atrial fibrillation on eliquis, hypothyroidism, and HTN on multiple medications, presenting to the emergency department today from [facility], with chest pain, nausea, vomiting, and diarrhea. [place] care staff states that since earlier today the patient has been complaining of nausea, vomiting, diarrhea, and chest pain. Patient denies any abdominal pain, dizziness, lightheadedness, fever, chills, blurry vision, double vision, loss of vision, chest pain, difficulty breathing, shortness of breath, back pain, night sweats, pain with urination, increased urinary frequency, increased urinary urgency, blood in her urine or stool, syncope or a near syncopal episode, recent trauma or falls, bowel incontinence, bladder incontinence, or any other complaints at this time. Related Data Home Medications ?Medication ?Instructions ?Recorded ?Confirmed gabapentin 300 mg capsule 300 mg PO BID Pain 07/13/20 03/06/24 ipratropium bromide 17 2 puff inhalation Q6H PRN 07/13/20 03/06/24 mcg/actuation HFA aerosol inhaler Shortness Of Breath levothyroxine 50 mcg tablet 50 mcg PO LUTHERUTHSA@0600 07/13/20 03/06/24 magnesium oxide 400 mg (241.3 mg 400 mg PO BEDTIME 07/13/20 03/06/24 magnesium) tablet famotidine 20 mg tablet 20 mg PO BID 12/21/22 03/06/24 montelukast 10 mg tablet 10 mg PO BEDTIME 12/21/22 03/06/24 multivitamin 1 tab PO DAILY 12/21/22 03/06/24 amlodipine 5 mg tablet 5 mg PO BID 09/12/23 03/06/24 furosemide 20 mg tablet 60 mg PO DAILY 09/28/23 03/06/24 aspirin 81 mg capsule 81 mg PO DAILY 10/27/23 03/06/24 ipratropium 0.5 mg-albuterol 3 mg 3 ml inhalation Q4H PRN Wheezing 10/27/23 03/06/24 (2.5 mg base)/3 mL nebulization soln acetaminophen 325 mg tablet 650 mg PO Q8H PRN Fever Or Pain 11/06/23 03/06/24 levothyroxine 75 mcg tablet 75 mcg PO MOWEFR@0600 11/22/23 03/06/24 bisacodyl 10 mg rectal suppository 10 mg OK DAILY PRN Constipation 12/07/23 03/06/24 magnesium hydroxide 400 mg/5 mL 30 ml PO DAILY PRN Constipation 12/07/23 03/06/24 oral suspension (Milk of Magnesia) naloxone 4 mg/actuation nasal 4 mg intranasal Q3M PRN Opioid 12/07/23 03/06/24 spray (Narcan) Overdose sodium phosphates 19 gram-7 118 ml OK DAILY PRN Constipation 12/07/23 03/06/24 gram/118 mL enema (Fleet Enema) ascorbic acid (vitamin C) 500 mg 500 mg PO DAILY 03/06/24 03/06/24 tablet diclofenac sodium 1 % topical gel 4 g topical DAILY 03/06/24 03/06/24 docusate sodium 100 mg capsule 100 mg PO DAILY 03/06/24 03/06/24 (Colace) ferrous sulfate 325 mg (65 mg 325 mg PO DAILY 03/06/24 03/06/24 iron) tablet,delayed release guaifenesin 100 mg/5 mL oral liquid 200 mg PO Q4H 03/06/24 03/06/24 mirtazapine 7.5 mg tablet 7.5 mg PO BEDTIME 03/06/24 03/06/24 Previous Rx's ?Medication ?Instructions ?Recorded hydralazine 25 mg tablet 25 mg PO TID #90 tabs 10/05/23 polyethylene glycol 3350 17 17 g PO DAILY #119 grams 10/29/23 gram/dose oral powder (Miralax) potassium chloride 20 mEq 20 meq PO BID #60 tabs 12/03/23 tablet,extended release(part/cryst) apixaban 2.5 mg tablet (Eliquis) 2.5 mg PO BID #60 tabs 12/10/23 metoprolol succinate 25 mg 25 mg PO DAILY #30 tabs 12/10/23 tablet,extended release 24 hr (Toprol XL) levofloxacin 750 mg tablet 750 mg PO DAILY 1 day #1 tab 03/09/24 Allergies Allergy/AdvReac Type Severity Reaction Status Date / Time adhesive tape [Adhesive Tape] Allergy Unknown RASH Verified 07/28/24 14:25 codeine [Codeine] Allergy Unknown SWELLING Verified 07/28/24 14:25 Iodinated Contrast Media Allergy Unknown UNKNOWN Verified 07/28/24 14:25 [IV Dye, Iodine Containing] iodine [Iodine] Allergy Unknown UNKNOWN Verified 07/28/24 14:25 oxycodone [Percocet] Allergy Unknown unknown Verified 07/28/24 14:25 papaya [Papaya] Allergy Unknown HIVES Verified 07/28/24 14:25 pineapple [Pineapple] Allergy Unknown HIVES Verified 07/28/24 14:25 strawberry [Clarence] Allergy Unknown HIVES Verified 07/28/24 14:25 Codeine Phosphate Allergy Unknown unknown Uncoded 07/28/24 14:25 Novocain Allergy Unknown unknown Uncoded 07/28/24 14:25 From Vicodin AdvReac Unknown NAUSEA & Uncoded 07/28/24 14:25 VOMITING Review of Systems 2 Constitutional: Constitutional: Reports no additional constitutional complaints, Denies chills, Denies fever(s) and Denies night sweats Eyes: Eyes: Reports no additional eye complaints, Denies blurry vision, Denies change in vision, Denies diplopia, Denies eye discharge, Denies loss of vision and Denies eye pain ENT: Denies dizziness Cardiovascular: Cardiovascular: Reports no additional cardiovascular complaints, Reports chest pain, Denies lightheadedness, Denies Loss of Consciousness and Denies dyspnea Respiratory: Respiratory: Reports no additional respiratory complaints and Denies dyspnea Gastrointestinal: Gastrointestinal: Reports no additional gastrointestinal complaints, Denies abdominal pain, Denies melena, Denies hematochezia, Denies change in bowel habits, Denies change in stool character, Reports diarrhea, Reports nausea and Reports vomiting Genitourinary: Genitourinary: Denies hematuria, Denies urinary frequency, Denies dysuria, Denies urinary incontinence, Denies urinary hesitancy and Denies urinary urgency Musculoskeletal: Musculoskeletal: Reports no additional musculoskeletal complaints, Denies numbness and Denies tingling Neurologic: Denies dizziness, Denies loss of vision, Denies numbness and Denies tingling Psychiatric: Psychiatric: Reports no additional psychiatric complaints Endocrine: Endocrine: Reports no additional endocrine complaints Hematologic/Lymphatic: Hematologic/Lymphatic: Reports no additional hematologic/lymphatic complaints Allergic/Immunologic: Allergic/Immunologic: Reports no additional allergic/immunologic complaints [facility] Past Medical History Attestation statement: The following information was validated with the patient. Source: old records reviewed and nursing notes reviewed Medical History Atrial fibrillation with RVR Adnexal mass Abdominal aortic aneurysm CKD (chronic kidney disease) stage 3, GFR 30-59 ml/min Myocardial infarction Hypothyroidism Hyperlipidemia COPD (chronic obstructive pulmonary disease) HTN (hypertension) PAF (paroxysmal atrial fibrillation) Family History Family History Father History of heart disease Mother History of heart disease Social History Social History Household Members: None Housing: Prison Do you presently have visiting nurse or other home services: Yes Alcohol intake: never Comment: sitter present Patient Tobacco Use Status: Never used Tobacco Advance Directives: Yes Advance Directives on File: Yes Advance Directives Date on File: 10/16/23 Do you have a plan to hurt others: No Plan service: No Current occupational status: retired Physical Exam 2 Vital Signs: Vital Signs: Last Vital Signs Temp 98.2 F 07/28/24 21:59 Pulse 75 07/28/24 21:59 Resp 15 07/28/24 21:59 BP 175/76 H 07/28/24 21:59 Pulse Ox 95 07/28/24 21:59 O2 Del Method Nasal Cannula 07/28/24 21:59 O2 Flow Rate 3 07/28/24 21:59 Oxygen Flow Rate 3 07/28/24 14:24 BMI result Body Mass Index 24.4 Const: General: cooperative, no acute distress, alert and awake Nutritional Appearance: well nourished Orientation/consciousness: oriented to person and oriented to place Limitations: no limitations HEENT: Head: Yes normal to inspection and Yes atraumatic Ears: hearing grossly normal bilaterally and external ears normal General nose exam: Normal external nose present, no nasal discharge noted and no epistaxis Face and sinus: Yes normal facial exam, No abrasion and No laceration Mouth: Normal oral and palatal mucosa present, no drooling and no muffled voice Eyes: General: appearance normal, both eyes and all related structures P eriorbital: periorbital findings normal Eyelids: Yes eyelids normal C onjunctivae: conjunctivae normal Pupils: Equal, round and reactive pupils present EOM: EOMs intact bilaterally Neck: Neck: Yes normal visual inspection, Yes full ROM and Yes no lymphadenopathy Chest: Chest palpation & inspection: normal inspection of the chest Resp: Other: patient on oxygen via nasal cannula per her baseline Effort & Inspection: normal respiratory effort and able to speak in complete sentences GI: Inspection: Yes normal to inspection Neuro: General: oriented to person, oriented to place and moves all extremities Cranial nerves: Yes Equal, round and reactive pupils present Extrem: General: Yes normal to inspection, Yes full ROM and Yes capillary refill normal Psych: Appearance: grossly normal Mental Status: mental status grossly normal Affect: normal affect Attitude: cooperative Thought process: N ormal thought process present Thought content: Normal thought content present Insight: Good insight present (Psych) Medications Administered Generic Name Dose Route Start Last Admin Trade Name Freq PRN Reason Stop Dose Admin Sodium Chloride 1,000 mls @ 200 mls/hr 07/28/24 20:30 07/28/24 21:20 Ns IVCONT 07/29/24 01:29 200 mls/hr .Q5H TOBI Administration Discontinued Medications Generic Name Dose Route Start Last Admin Trade Name Freq PRN Reason Stop Dose Admin Ceftriaxone Sodium 1 gm 07/28/24 19:38 07/28/24 21:15 Ceftriaxone Sodium 1 Gm Vial IVPUSH 07/28/24 19:39 1 gm ONCE ONE Administration Hydralazine HCl 5 mg 07/28/24 16:22 07/28/24 16:34 Hydralazine Hcl 20 Mg/Ml Vial IVPUSH 07/28/24 16:23 5 mg ONCE ONE Administration Protocol Metronidazole 500 mg in 100 mls @ 100 mls/hr 07/28/24 19:38 07/28/24 22:23 Flagyl IV 07/28/24 20:37 Infused ONCE ONE Infusion Losartan Potassium 25 mg 07/28/24 18:13 07/28/24 18:39 Losartan Potassium 25 Mg Tablet PO 07/28/24 18:14 25 mg ONCE ONE Administration Protocol Metoclopramide HCl 10 mg 07/28/24 17:38 07/28/24 17:40 Metoclopramide Hcl 10 Mg/2 Ml Vial IVPUSH 07/28/24 17:39 10 mg ONCE ONE Administration Ondansetron HCl 4 mg 07/28/24 16:01 07/28/24 16:13 Ondansetron Hcl 4 Mg/2 Ml Vial IVPUSH 07/28/24 16:02 4 mg ONCE ONE Administration Medical Decision Making Medical Decision Making [facility] Narrative: Patient is an 89 year old assigned female at with a history of metabolic encephalopathy, chronic respiratory failure on oxygen via nasal cannula, atrial fibrillation on eliquis, hypothyroidism, and HTN on multiple medications, presenting to the emergency department today from [facility], with chest pain, nausea, vomiting, and diarrhea. Patient's blood work showed an elevated WBC count of 14.7 but were otherwise unremarkable. Patient's urine showed evidence of an acute UTI. Patient's EKG was unremarkable. Patient's chest x-ray showed a small left pleural effusion. Patient's head CT showed a non-specific right mastoid opacification. Patient's abdomen/pelvis CT showed a small bowel ileus with probable enteritis and no evidence of obstruction or ascites, diverticulosis with no evidence of diverticulitis, large fluid-filled hiatal hernia, bladder wall thickening consistent with cystitis, and a fat containing periumbilical hernia with probable mild inflammatory changes. Patient was given IV ceftriaxone and flagyl as well as Zofran and Reglan. Patient was initially hypertensive in the department and given 5mg of IV hydralazine. I consulted with the terminal gauger supervisor parks and recreation worker, Dr. Womack, who recommended staying away from IV anti-hypertensives and instead giving the patient PO Losartan. Once the patient was able to tolerate PO - she was given 25mg of PO Losartan and her pressure appropriately corrected. I spoke with the hospitalist, Dr. Fuller, who agreed to admission. Patient's clinical presentation is not consistent with sepsis (@2019). I explained my physical exam findings as well as all test results to the patient. I answered all questions asked by the patient. Patient verbalized agreement and understanding with this treatment plan and admission. Differential Diagnosis Differential Diagnoses: The differential diagnosis associated with the presentation includes Hypertensive urgency Hypertensive crisis Ileus Norovirus Gastroenteritis C.Diff UTI Nausea Vomiting Intractable nausea / vomiting Admission/Observation Consideration of admission/observation: Escalation of care including admission/observation considered Patient admitted as noted in the MDM Rationale portion of this note. Consult Healthcare Provider Management of the patient was discussed with: Hospitalist (agreed to admission as noted in the MDM Rationale portion of this note.) and Director Of Audiology (spoke with the terminal gauger supervisor as noted in the MDM Rationale portion of this note. ) Lab Data [facility] Lab Attestation statement: I reviewed the patient's lab results. My interpretation of these results are in the MDM Rationale portion of this note. 07/28/24 15:24 07/28/24 15:24 Labs: Lab Results 07/28/24 07/28/24 07/28/24 Range/Units 15:24 17:29 17:46 WBC 14.7 H (4.8-10.8) X10*3/uL RBC 4.20 (4.20-5.50) X10*6/uL Hgb 12.8 (12.0-16.0) g/dl Hct 37.9 (37.0-47.0) % MCV 90.2 (80.0-98.0) fL MCH 30.5 (27.0-33.0) pg MCHC 33.8 (31.0-35.0) g/dl RDW 12.5 (11.0-16.0) % Plt Count 336 (160-400) X10*3/uL MPV 9.7 (9.4-12.3) fL Immature Gran % (Auto) 0.6 H (0.0-0.4) % Neut % (Auto) 87.9 H (45-73) % Lymph % (Auto) 5.4 L (20-40) % [place] % (Auto) 4.8 (2-11) % Eos % (Auto) 1.0 (0-4) % Baso % (Auto) 0.3 (0-2) % Lymph # (Auto) 0.8 L (1.2-4.9) X10*3/uL [place] # (Auto) 0.7 (0.1-1.2) X10*3/uL Eos # (Auto) 0.1 (0.0-0.4) X10*3/uL Baso # (Auto) 0.1 (0.0-0.2) X10*3/uL Abs Immat Gran (auto) 0.09 H (0.00-0.03) X10*3/uL Absolute Neuts (auto) 12.9 H (2.0-8.3) x10*3/uL Absolute Nucleated RBC 0.000 (0.0-0.012) X10*3/uL Nucleated RBC % (auto) 0.0 (0.0-0.2) /100WBC Sodium 139 (135-145) mmol/L Potassium 3.4 (3.3-5.1) mmol/L Chloride 102 (96-108) mmol/L Carbon Dioxide 25 (22-29) mmol/L Anion Gap 15 (12-20) BUN 20 H (9-16) mg/dL Creatinine 0.96 (0.5-1.4) mg/dL Estim Creat Clear Calc 37.9 Estimated GFR 55 Random Glucose 124 H (60-115) mg/dL Calcium 9.1 (8.4-10.2) mg/dL Magnesium 1.9 (1.6-2.6) mg/dL Total Bilirubin 0.3 (0.0-1.0) mg/dL AST 27 (5-31) U/L ALT < 6 (0-31) U/L Alkaline Phosphatase 78 (39-117) U/L Troponin I High Sens 9.7 (<3.5-17.0) ng/L Total Protein 7.3 (6.5-8.0) g/dL Albumin 3.1 L (3.5-5.0) g/dL Urine Color Urine Appearance Urine pH (5.0-9.0) Ur Specific [place] (1.005-1.025) Urine Protein (Neg-Trace) mg/dL Urine Glucose (UA) (Negative) mg/dL Urine Ketones (Negative) mg/dL Urine Blood (Negative) Urine Nitrite (Negative) Ur Leukocyte Esterase (Negative) Urine RBC (0-2) /HPF Urine WBC (0-5) /HPF Ur Squamous Epith Cells (0-2) /HPF Urine Bacteria (None Seen) Hyaline Casts (0-2) /LPF C. difficile Tox B Gene NEGATIVE (Negative) Influenza Type A (PCR) NEGATIVE (Negative) Influenza Type B (PCR) NEGATIVE (Negative) RSV RNA Qual (PCR) NEGATIVE (Negative) SARS-CoV-2 RNA (RT-PCR) NEGATIVE (Negative) 07/28/24 Range/Units 21:09 WBC (4.8-10.8) X10*3/uL RBC (4.20-5.50) X10*6/uL Hgb (12.0-16.0) g/dl Hct (37.0-47.0) % MCV (80.0-98.0) fL MCH (27.0-33.0) pg MCHC (31.0-35.0) g/dl RDW (11.0-16.0) % Plt Count (160-400) X10*3/uL MPV (9.4-12.3) fL Immature Gran % (Auto) (0.0-0.4) % Neut % (Auto) (45-73) % Lymph % (Auto) (20-40) % [place] % (Auto) (2-11) % Eos % (Auto) (0-4) % Baso % (Auto) (0-2) % Lymph # (Auto) (1.2-4.9) X10*3/uL [place] # (Auto) (0.1-1.2) X10*3/uL Eos # (Auto) (0.0-0.4) X10*3/uL Baso # (Auto) (0.0-0.2) X10*3/uL Abs Immat Gran (auto) (0.00-0.03) X10*3/uL Absolute Neuts (auto) (2.0-8.3) x10*3/uL Absolute Nucleated RBC (0.0-0.012) X10*3/uL Nucleated RBC % (auto) (0.0-0.2) /100WBC Sodium (135-145) mmol/L Potassium (3.3-5.1) mmol/L Chloride (96-108) mmol/L Carbon Dioxide (22-29) mmol/L Anion Gap (12-20) BUN (9-16) mg/dL Creatinine (0.5-1.4) mg/dL Estim Creat Clear Calc Estimated GFR Random Glucose (60-115) mg/dL Calcium (8.4-10.2) mg/dL Magnesium (1.6-2.6) mg/dL Total Bilirubin (0.0-1.0) mg/dL AST (5-31) U/L ALT (0-31) U/L Alkaline Phosphatase (39-117) U/L Troponin I High Sens (<3.5-17.0) ng/L Total Protein (6.5-8.0) g/dL Albumin (3.5-5.0) g/dL Urine Color Yellow Urine Appearance Turbid Urine pH 7.5 (5.0-9.0) Ur Specific [place] 1.015 (1.005-1.025) Urine Protein >=1000 (4+) H (Neg-Trace) mg/dL Urine Glucose (UA) Negative (Negative) mg/dL Urine Ketones Negative (Negative) mg/dL Urine Blood Trace H (Negative) Urine Nitrite Negative (Negative) Ur Leukocyte Esterase Large (3+) H (Negative) Urine RBC 0-2 (0-2) /HPF Urine WBC >50 H (0-5) /HPF Ur Squamous Epith Cells 3-5 (0-2) /HPF Urine Bacteria 4+ (None Seen) Hyaline Casts 3-5 (0-2) /LPF C. difficile Tox B Gene (Negative) Influenza Type A (PCR) (Negative) Influenza Type B (PCR) (Negative) RSV RNA Qual (PCR) (Negative) SARS-CoV-2 RNA (RT-PCR) (Negative) Independent Interpretation I performed an independent interpretation of an: EKG, Plain X-Ray and CT Scan Interpretation: My interpretation is in agreement with the radiologist's impression of these imaging studies. L CLINICAL HISTORY: chest pain 1 view chest x-ray Comparison: CR/SR - XR CHEST 1V - 12/07/23 06:37 EDT Findings: Small left pleural effusion. No consolidation. No pneumothorax. Cardiac silhouette is enlarged. No acute fracture. IMPRESSION: 1. Small left pleural effusion. 2. No segmental pneumonia or pulmonary edema. This document has been electronically signed by: Ya Snell DO on 07/28/2024 17:25:22 Dictated By: Ya Snell MD Signed By: Electronically signed by Ya Snell MD 07/28/24 1725 Report Number: [id number]: Total DLP = 704.63 mGy-cm CLINICAL HISTORY: nausea, vomiting, HTN CT HEAD WITHOUT CONTRAST Comparison: CT/SR - CT HEAD/BRAIN WO IV CON - 03/05/24 21:36 EDT Findings: No acute intracranial hemorrhage, extra-axial fluid collection, hydrocephalus or midline shift. Age appropriate generalized parenchymal atrophy. There are periventricular and subcortical white matter hypodensities which are nonspecific but most likely related to microangiopathic gliosis. Intracranial arteriosclerosis. There is opacification of several right mastoid air cells. No sinus fluid. Visualized orbits: No acute abnormalities. Bilateral scleral banding. There is no acute fracture. IMPRESSION: 1. No acute intracranial process. 2. Nonspecific partial right mastoid opacification. This document has been electronically signed by: Ya Snell DO on 07/28/2024 18:29:59 Dictated By: Ya Snell MD Signed By: Electronically signed by Ya Snell MD 07/28/24 1831 Report Number: [id number]: Total DLP = 475.77 mGy-cm CLINICAL HISTORY: nausea, vomiting CT ABDOMEN AND PELVIS WITHOUT CONTRAST Comparison: CT/SR - CT ABDOMEN PELVIS WO IV CON - 03/05/24 15:53 EDT Findings: Bilateral lower lobe atelectasis and/or scarring. No consolidation or pleural effusion. Large hiatal hernia with fluid distention. No hydronephrosis, significant perinephric edema or urolithiasis. No acute abnormalities in the remaining unenhanced solid organs. The gallbladder is not well seen either contracted or absent. Extensive calcific plaque in the aorta and iliofemoral arteries. There is stable 3.6 cm infrarenal AAA. No bowel obstruction, pneumoperitoneum, or pneumatosis. Mild fluid distention of multiple small bowel loops with probable wall thickening. No abrupt transition point. Large amount of liquid stool throughout the colon. There is large amount of formed stool in the sigmoid and rectum. 4 cm periumbilical hernia contains fat with increased attenuation. Colonic diverticulosis. No acute diverticulitis. The appendix is not well seen. Hysterectomy. 8.4 x 7.5 x 9.1 cm thin-walled cystic lesion in the right hemipelvis is unchanged in size and configuration. Diffuse urinary bladder wall thickening with adjacent fat stranding. No free fluid. Stable severe compression deformity with bony retropulsion and heterogeneous sclerosis in L3. Also chronic T11 compression fracture. Minimal grade 1 spondylolisthesis L4-5. IMPRESSION: 1. Small bowel ileus with probable enteritis. No obstruction or ascites. 2. Diverticulosis coli with no convincing evidence for acute diverticulitis. 3. Large fluid-filled hiatal hernia. 4. No acute obstructive uropathy or urolithiasis. 5. Diffuse urinary bladder wall thickening suggests cystitis in the appropriate clinical setting. 6. No significant change in the 9.1 cm right hemipelvis/adnexal cystic lesion. 7. Fat containing periumbilical hernia with probable mild inflammatory changes. This document has been electronically signed by: Ya Snell DO on 07/28/2024 18:45:07 Dictated By: Ya Snell MD Signed By: Electronically signed by Ya Snell MD 07/28/24 1845 I independently interpreted these EKG and am in agreement with the below findings: Vent. Rate: 69 BPM Atrial Rate: 69 BPM P-R Int: 282 ms QRS Dur: 70 ms QT Int: 408 ms P-R-T Axes: 63 -10 63 degrees QTcB Int: 437 ms Sinus rhythm with marked sinus arrhythmia with 1st degree A-V block Anteroseptal infarct (cited on or before 28-Sep-2023) When compared with ECG of 05-Mar-2024 15:12, OK interval has increased Vent. rate has decreased by 59 bpm DD/ 1510 Vent. Rate: 88 BPM Atrial Rate: 88 BPM P-R Int: 186 ms QRS Dur: 74 ms QT Int: 400 ms P-R-T Axes: 96 6 40 degrees QTcB Int: 484 ms Sinus rhythm with occasional Premature ventricular complexes and Prematureatrial complexes Anteroseptal infarct (cited on or before 28-Sep-2023) When compared with ECG of 28-Jul-2024 15:10, Premature ventricular complexes are now Present Premature atrial complexes are now Present OK interval has decreased DD/ 1741 Radiology Impression Discussion of test interpretation with radiology: I have reviewed the radiologist's reading. Independent Historian Clinical information obtained from an independent historian. History obtained from or confirmed by: EMS (EMS provided additional history and confirmed the history provided by the patient.) Chronic Conditions Patient?s care impacted by: Hypertension Critical Care Time Critical Care Time Critical Care Time: Yes Total Critical Care Time: 49 Attestation: I spent 49 minutes of Critical Care Time with this patient. This does not include time spent on separately reported billable procedures. Discharge Plan Discharge Clinical Impression: Acute UTI, Ileus, Nausea & vomiting, Diarrhea Patient Disposition: Admitted As Inpatient
[2024-07-28 16:04] LABS: Alkaline Phosphatase 78 U/L (39-117)
[2024-07-28] MEDS: ondansetron HCL 4 MG/2 ML VIAL IVPUSH (16:13)
[2024-07-28] MEDS: hydrALAZINE HCl 20 MG/ML VIAL 5 MG IVPUSH (16:34)
--- NOTE | 2024-07-28 16:57 | ECG_ITS ---
Test Reason : CHEST PAIN Blood Pressure : */* mmHG Vent. Rate : 88 BPM Atrial Rate : 88 BPM P-R Int : 186 ms QRS Dur : 74 ms QT Int : 400 ms P-R-T Axes : 96 6 40 degrees QTcB Int : 484 ms Sinus rhythm with occasional Premature ventricular complexes and Premature atrial complexes Anteroseptal infarct (cited on or before 28-Sep-2023) Abnormal ECG When compared with ECG of 28-Jul-2024 15:10, Premature ventricular complexes are now Present Premature atrial complexes are now Present MT interval has decreased Referred By: Edith Espana Electronically Signed By: KELLY KHAN MD
[2024-07-28 17:11] LABS: Magnesium 1.9 mg/dL (1.6-2.6)
[2024-07-28] MEDS: Metoclopramide HCl 10 MG/2 ML VIAL IVPUSH (17:40)
--- NOTE | 2024-07-28 17:51 | MHC.EDTECH ---
Patient continue to have watery stool ,care given ,vitals taken ,Provider aware of Patient high blood Pressure ,repeated ekg taken .
[2024-07-28 18:18] LABS: Influenza A PCR NEGATIVE (Negative); Influenza B PCR NEGATIVE (Negative); Resp Syncy Virus RNA Qual PCR NEGATIVE (Negative); SARS COV2 PCR INHOUSE NEGATIVE (Negative)
[2024-07-28] MEDS: Losartan Potassium 25 MG TABLET PO (18:39)
[2024-07-28 18:45] LABS: CDiff Gene PCR NEGATIVE (Negative)
--- NOTE | 2024-07-28 20:38 | MHC.EDTECH ---
Patient was incontinent of urine ,was able to collect small amount of urine sample and sent to lab ,care given ,vitals taken ,warm blanket given ,No apparent distress noted ,Plan of care continue .Patient belongings list done .
--- NOTE | 2024-07-28 21:06 | PC.NURSE ---
this rn took call from lab, per lab, there was not enough urine sent in sample. this rn straight cath pt, 300ml yellow urine voided at this time. urine sample obtained and sent.
[2024-07-28] MEDS: cefTRIAXone sodium 1 GM VIAL IVPUSH (21:15)
[2024-07-28] MEDS: 0.9 % Sodium Chloride 1,000 ML 200 ML IVCONT (21:20)
[2024-07-28] MEDS: metroNIDAZOLE/NS 500 MG/100 ML PIGGYBACK 100 MG IV (21:20)
--- NOTE | 2024-07-28 21:24 | PC.NURSE ---
per meagan CUENCA, antibiotics not needed prior to antibiotic administration. 22G placed in left forearm, pt medicated per sep.
[2024-07-28 21:25] LABS: Appearance Urine Turbid; Color Urine Yellow; Glucose Urine UA Negative (Negative); Leukocyte Esterase Urine Large (3+) (Negative); Nitrite Urine Negative (Negative); PH 7.5 (5.0-9.0); Specific Gravity - Urine 1.015 (1.005-1.025); UMIC TRIGGER UACC YES; Urine Blood Trace (Negative); Urine Ketones Negative (Negative); Urine Protein >=1000 (4+) mg/dL (Neg-Trace)
--- NOTE | 2024-07-28 21:29 | PM.IMHP ---
History of Present Illness Date of Service: 07/28/24 Attending physician on admission: Nilda Fuller Chief Complaint: Nausea, vomiting, diarrhea Pt is an 89-year-old female with a PMH significant for?COPD chronically on 2-3L home O2, HTN, HLD, HFpEF, paroxysmal AFib on Eliquis, hx of [place] around 6 years ago, and hypothyroidism who presents to the ED from [facility] for evaluation of chest pain, nausea, vomiting, and diarrhea. Pt is alert and oriented x3, but is overall a poor historian and quite irritable, not the most forthcoming in providing HPI. Pt continues to complain of nausea, vomiting, diarrhea, and abdominal pain worsened with movement, though symptom onset is unclear. Of note, pt had multiple episodes of explosive diarrhea while in the ED. denies significant shortness a breath or difficulty breathing. ?No fever, chills. In the ED pt was hypertensive up to 221/110, vitals otherwise stable and WNL. Labs were significant for leukocytosis of 14.7, otherwise grossly unremarkable and around baseline for pt. Stable H&H. No significant electrolyte abnormalities. Renal function baseline. Hepatic function WNL. Troponin WNL. UA positive for UTI. CXR showed small left pleural effusion but no pulmonary edema or pneumonia. CTA of head found no acute intracranial process. CT of abdomen/pelvis found small bowel ileus with probable enteritis without obstruction or ascites, as well as diffuse urinary bladder wall thickening suggestive of cystitis. EKG demonstrated sinus rhythm with PVCs and PACs. Pt was treated with ondansetron, hydralazine, metoclopramide, losartan, IVF, ceftriaxone, and metronidazole. Pt will be admitted to the hospital for treatment and further evaluation of intractable nausea, vomiting, diarrhea in the setting of enteritis. Review of Systems Review of Systems: Negative except for that which is stated in the HPI [facility] Medical History Atrial fibrillation with RVR Adnexal mass Abdominal aortic aneurysm CKD (chronic kidney disease) stage 3, GFR 30-59 ml/min Myocardial infarction Hypothyroidism Hyperlipidemia COPD (chronic obstructive pulmonary disease) HTN (hypertension) PAF (paroxysmal atrial fibrillation) Family History Father History of heart disease Mother History of heart disease Social History Household Members: None Housing: [facility] Do you presently have visiting nurse or other home services: Yes Alcohol intake: never Comment: sitter present Patient Tobacco Use Status: Never used Tobacco Advance Directives: Yes Advance Directives on File: Yes Advance Directives Date on File: 10/16/23 Do you have a plan to hurt others: No Plan service: No Current occupational status: retired Meds Allergies Allergy/AdvReac Type Severity Reaction Status Date / Time adhesive tape [Adhesive Tape] Allergy Unknown RASH Verified 07/28/24 14:25 codeine [Codeine] Allergy Unknown SWELLING Verified 07/28/24 14:25 Iodinated Contrast Media Allergy Unknown UNKNOWN Verified 07/28/24 14:25 [IV Dye, Iodine Containing] iodine [Iodine] Allergy Unknown UNKNOWN Verified 07/28/24 14:25 oxycodone [Percocet] Allergy Unknown unknown Verified 07/28/24 14:25 papaya [Papaya] Allergy Unknown HIVES Verified 07/28/24 14:25 pineapple [Pineapple] Allergy Unknown HIVES Verified 07/28/24 14:25 strawberry [[place]] Allergy Unknown HIVES Verified 07/28/24 14:25 Codeine Phosphate Allergy Unknown unknown Uncoded 07/28/24 14:25 Novocain Allergy Unknown unknown Uncoded 07/28/24 14:25 From Vicodin AdvReac Unknown NAUSEA & Uncoded 07/28/24 14:25 VOMITING Active Medications: Current Medications Sodium Chloride (Ns) 1,000 mls @ 200 mls/hr IVCONT .Q5H TOBI Stop: 07/29/24 01:29 Last Admin: 07/28/24 21:20 Dose: 200 mls/hr Home Medications ?Medication ?Instructions ?Recorded ?Confirmed ?Last Taken ?Type gabapentin 300 mg capsule 300 mg PO BID Pain 07/13/20 03/06/24 12/20/22 History ipratropium bromide 17 2 puff inhalation Q6H PRN 07/13/20 03/06/24 12/20/22 History mcg/actuation HFA aerosol inhaler Shortness Of Breath levothyroxine 50 mcg tablet 50 mcg PO SUTUTHSA@0600 07/13/20 03/06/24 12/20/22 History magnesium oxide 400 mg (241.3 mg 400 mg PO BEDTIME 07/13/20 03/06/24 12/20/22 History magnesium) tablet famotidine 20 mg tablet 20 mg PO BID 12/21/22 03/06/24 12/20/22 History montelukast 10 mg tablet 10 mg PO BEDTIME 12/21/22 03/06/24 12/20/22 History multivitamin 1 tab PO DAILY 12/21/22 03/06/24 12/20/22 History amlodipine 5 mg tablet 5 mg PO BID 09/12/23 03/06/24 Unknown History furosemide 20 mg tablet 60 mg PO DAILY 09/28/23 03/06/24 11/22/23 History aspirin 81 mg capsule 81 mg PO DAILY 10/27/23 03/06/24 Unknown History ipratropium 0.5 mg-albuterol 3 mg 3 ml inhalation Q4H PRN Wheezing 10/27/23 03/06/24 Unknown History (2.5 mg base)/3 mL nebulization soln acetaminophen 325 mg tablet 650 mg PO Q8H PRN Fever Or Pain 11/06/23 03/06/24 Unknown History levothyroxine 75 mcg tablet 75 mcg PO MOWEFR@0600 11/22/23 03/06/24 Unknown History bisacodyl 10 mg rectal suppository 10 mg NC DAILY PRN Constipation 12/07/23 03/06/24 Unknown History magnesium hydroxide 400 mg/5 mL 30 ml PO DAILY PRN Constipation 12/07/23 03/06/24 Unknown History oral suspension (Milk of Magnesia) naloxone 4 mg/actuation nasal 4 mg intranasal Q3M PRN Opioid 12/07/23 03/06/24 Unknown History spray (Narcan) Overdose sodium phosphates 19 gram-7 118 ml NC DAILY PRN Constipation 12/07/23 03/06/24 Unknown History gram/118 mL enema (Fleet Enema) ascorbic acid (vitamin C) 500 mg 500 mg PO DAILY 03/06/24 03/06/24 Unknown History tablet diclofenac sodium 1 % topical gel 4 g topical DAILY 03/06/24 03/06/24 Unknown History docusate sodium 100 mg capsule 100 mg PO DAILY 03/06/24 03/06/24 Unknown History (Colace) ferrous sulfate 325 mg (65 mg 325 mg PO DAILY 03/06/24 03/06/24 Unknown History iron) tablet,delayed release guaifenesin 100 mg/5 mL oral liquid 200 mg PO Q4H 03/06/24 03/06/24 Unknown History mirtazapine 7.5 mg tablet 7.5 mg PO BEDTIME 03/06/24 03/06/24 Unknown History Physical Exam Vital Signs and Narrative: Vital Signs: Last Vital Signs Temp 98.7 F 07/28/24 20:21 Pulse 77 07/28/24 20:21 Resp 16 07/28/24 20:21 BP 192/83 H 07/28/24 20:21 Pulse Ox 97 07/28/24 20:21 O2 Del Method Room Air 07/28/24 20:21 O2 Flow Rate 3 07/28/24 18:31 Oxygen Flow Rate 3 07/28/24 14:24 BMI result Body Mass Index 24.4 General: AOx3, no acute distress Resp: CTA bilaterally CVS: S1, S2, RRR GI: Exam deferred as pt refused to allow for abdominal palpation or auscultation. Skin: Warm, dry Neuro: Cranial nerves II-XII grossly intact bilaterally. Motor grossly intact bilaterally Extremities: No edema Psych: Irritable, minimally cooperative with interview and exam Results Labs 07/28/24 15:24 07/28/24 15:24 Labs: Laboratory Results - last 24 hr 07/28/24 07/28/24 07/28/24 15:24 17:29 17:46 MCV 90.2 MCH 30.5 MCHC 33.8 RDW 12.5 Plt Count 336 MPV 9.7 Immature Gran % (Auto) 0.6 H Neut % (Auto) 87.9 H Lymph % (Auto) 5.4 L [place] % (Auto) 4.8 Eos % (Auto) 1.0 Baso % (Auto) 0.3 Lymph # (Auto) 0.8 L [place] # (Auto) 0.7 Eos # (Auto) 0.1 Baso # (Auto) 0.1 Abs Immat Gran (auto) 0.09 H Absolute Neuts (auto) 12.9 H Absolute Nucleated RBC 0.000 Nucleated RBC % (auto) 0.0 Anion Gap 15 Estim Creat Clear Calc 37.9 Estimated GFR 55 Random Glucose 124 H Calcium 9.1 Magnesium 1.9 Total Bilirubin 0.3 AST 27 ALT < 6 Alkaline Phosphatase 78 Troponin I High Sens 9.7 Total Protein 7.3 Albumin 3.1 L Urine Color Urine Appearance Urine pH Ur Specific [place] Urine Protein Urine Glucose (UA) Urine Ketones Urine Blood Urine Nitrite Ur Leukocyte Esterase C. difficile Tox B Gene NEGATIVE Influenza Type A (PCR) NEGATIVE Influenza Type B (PCR) NEGATIVE RSV RNA Qual (PCR) NEGATIVE SARS-CoV-2 RNA (RT-PCR) NEGATIVE 07/28/24 21:09 MCV MCH MCHC RDW Plt Count MPV Immature Gran % (Auto) Neut % (Auto) Lymph % (Auto) [place] % (Auto) Eos % (Auto) Baso % (Auto) Lymph # (Auto) [place] # (Auto) Eos # (Auto) Baso # (Auto) Abs Immat Gran (auto) Absolute Neuts (auto) Absolute Nucleated RBC Nucleated RBC % (auto) Anion Gap Estim Creat Clear Calc Estimated GFR Random Glucose Calcium Magnesium Total Bilirubin AST ALT Alkaline Phosphatase Troponin I High Sens Total Protein Albumin Urine Color Yellow Urine Appearance Turbid Urine pH 7.5 Ur Specific [place] 1.015 Urine Protein >=1000 (4+) H Urine Glucose (UA) Negative Urine Ketones Negative Urine Blood Trace H Urine Nitrite Negative Ur Leukocyte Esterase Large (3+) H C. difficile Tox B Gene Influenza Type A (PCR) Influenza Type B (PCR) RSV RNA Qual (PCR) SARS-CoV-2 RNA (RT-PCR) Assessment and Plan (1) Acute UTI: Status: Acute (2) Abdominal pain: Qualifiers: Abdominal location: right lower quadrant Qualified Code(s): R10.31 - Right lower quadrant pain Status: Acute Plan Pt is an 89-year-old female with a PMH significant for?COPD chronically on 2-3L home O2, HTN, HLD, HFpEF, paroxysmal AFib on Eliquis, hx of [place] around 6 years ago, and hypothyroidism who presents to the ED from [facility] for evaluation of chest pain, nausea, vomiting, and diarrhea. Pt will be admitted to the hospital for treatment and further evaluation of intractable nausea, vomiting, diarrhea, and abdominal pain in the setting of enteritis. Intractable abdominal pain, nausea, vomiting, diarrhea In the setting of likely viral enteritis CT showing small bowel ileus with probable enteritis without ascites No sepsis C diff negative Will check stool studies Will hold on antibiotic coverage for enteritis pending stool studies Antiemetics, analgesics Clear liquid diet for now, advance as tolerated Acute UTI UA positive Previous UA positive for Klebsiella aerogenes resistant to ceftriaxone Will cover with levofloxacin, started 07/28/2024 Follow urine cultures Hypertensive urgency Patient's BP as high as 221/110 Pt with long hx of poorly controlled hypertension Continue amlodipine, hydralazine, metoprolol Labetalol 5 mg IV p.r.n. for SBP>180 CAD Continue aspirin, statin Paroxysmal AFib Continue Eliquis, metoprolol GERD Continue famotidine COPD Not in acute exacerbation Continue home inhalers Hypothyroidism Continue levothyroxine Full Code Attending:?Dr. Fuller DVT Prophylaxis: On Eliquis Pt will require a hospitalization of at least two nights for treatment of?intractable nausea, vomiting, diarrhea and abdominal pain in the setting of enteritis likely from viral source. Pt will require hospitalization for administration of IV fluids, antiemetics, and analgesics, as well as close monitoring of labs including electrolytes and kidney function. Quality Stroke Does the patient have a stroke diagnosis?: No VTE Prior VTE?: No VTE Risk Level:: Medical - moderate - high VTE Device Contraindication: Treatment Not Indicated VTE Drug Contraindication: N/A - Med Ordered
[2024-07-28 22:12] LABS: Bacteria Urine 4+ (None Seen); RBC Urine 0-2 /HPF (0-2); UACC Culture Trigger YES; WBC Urine >50 /HPF (0-5)
--- NOTE | 2024-07-28 22:42 | PC.NURSE ---
Patient had large loose bowel movement. Patient cleaned up and repositioned in bed for comfort.
[2024-07-28] MEDS: Meropenem 1 GM VIAL IVPUSH (22:56)
[2024-07-28] MEDS: Labetalol HCL 100 MG/20 ML VIAL IVPUSH (23:37)
[2024-07-29] VITALS (11 sets, daily range): BP systolic 135–186; BP diastolic 53–90; PULSE 60–88; RESP 15–20; TEMP 36.6–37.1; O2SAT 94–100; BMI 21.5
[2024-07-29] MEDS: Labetalol HCL 100 MG/20 ML VIAL 20 MG IVPUSH (01:30)
--- NOTE | 2024-07-29 01:47 | PC.NURSE ---
large amount of liquid stool, patient cleansed, repositioned, and warm blankets given
--- NOTE | 2024-07-29 01:48 | PC.NURSE ---
Elevate BP with 196 systolic, MD aware, labatelol 20mg ordered and given
[2024-07-29] MEDS: Loperamide HCl 2 MG CAPSULE 4 MG PO (01:58)
[2024-07-29 05:26] LABS: Hematocrit 35.7 % (37.0-47.0); Mean Corpuscular HGB Conc 33.6 g/dl (31.0-35.0); Mean Corpuscular Hemoglobin 30.8 pg (27.0-33.0); Mean Corpuscular Volume 91.5 fL (80.0-98.0); Platelet Count 295 X10*3/uL (160-400); Red Cell Distribution Width 12.7 % (11.0-16.0); White Blood Count 13.4 X10*3/uL (4.8-10.8)
[2024-07-29 05:40] LABS: Anion Gap 14 (12-20); Blood Urea Nitrogen 22 mg/dL (9-16); Calcium 8.3 mg/dL (8.4-10.2); Carbon Dioxide 25 mmol/L (22-29); Chloride 104 mmol/L (96-108); Creatinine Clr Calc Pharmacy 31.6; Estimated Glomerular Filt Rate 45; Glucose Random 120 mg/dL (60-115); Potassium 2.5 mmol/L (3.3-5.1); Sodium 140 mmol/L (135-145)
--- NOTE | 2024-07-29 05:48 | PC.NURSE ---
patient BP elevated at 186 systolic, MD aware, no new orders placed. Patient also has critical potassium of 2.5, new orders obtained from
[2024-07-29] MEDS: Labetalol HCL 100 MG/20 ML VIAL IVPUSH (05:55)
[2024-07-29] MEDS: Potassium Chloride Packet 20 MEQ PACKET 40 MEQ PO (05:55)
[2024-07-29 06:00] LABS: Magnesium 1.8 mg/dL (1.6-2.6)
[2024-07-29] MEDS: Potassium Chloride/H20 10 MEQ/100 ML PIGGYBACK 100 MEQ IV ×4 (06:01→10:03)
--- NOTE | 2024-07-29 08:12 | PHA.MEDREC ---
Pharmacy Consult ? Medication Reconciliation Pharmacy has completed the medication reconciliation.UTILIZED LIST FROM FACILITY
--- NOTE | 2024-07-29 10:16 | HO.PM.IMPN ---
Subjective Subjective Date of Service: 07/29/24 Interval History: seen and examined reports on going diarrhea, denies abd pain, denies n/v denies symptoms Physical Exam Vital Signs: Vital Signs: Last Vital Signs Temp 98.4 F 07/29/24 10:02 Pulse 70 07/29/24 10:02 Resp 16 07/29/24 10:02 BP 168/66 H 07/29/24 10:02 Pulse Ox 97 07/29/24 10:02 O2 Del Method Nasal Cannula 07/29/24 10:02 O2 Flow Rate 3 07/29/24 10:02 Oxygen Flow Rate 3 07/28/24 14:24 BMI result Body Mass Index 24.4 Const: Other: awake and alert abd soft nt cvs s1s2 lungs clear Objective Data Active Medications Acetaminophen (Acetaminophen 325 Mg Tablet) 650 mg PO Q6H PRN PRN Reason: Pain, Mild 1-3,fever,headache Calcium Carbonate (Calcium Carbonate 750 Mg Tab.Chew) 750 mg PO Q4H PRN PRN Reason: Heartburn Labetalol HCl (Labetalol Hcl 100 Mg/20 Ml Vial) 5 mg IVPUSH Q6H PRN PRN Reason: SBP >180 Last Admin: 07/29/24 05:55 Dose: 5 mg Documented By: CORTEZ Magnesium Hydroxide (Milk Of Magnesia 30 Ml Oral.Susp) 30 ml PO DAILY PRN PRN Reason: Constipation Melatonin (Melatonin 3 Mg Tablet) 6 mg PO BEDTIME PRN PRN Reason: Insomnia Meropenem (Meropenem 1 Gm Vial) 1 gm IVPUSH Q12H [facility] Last Admin: 07/28/24 22:56 Dose: 1 gm Documented By: CORTEZ Ondansetron HCl (Ondansetron Hcl 4 Mg/2 Ml Vial) 4 mg IVPUSH Q8H PRN PRN Reason: Nausea and Vomiting Sodium Chloride (0.9 % Sodium Chloride Flush 3 Ml Syringe) 3 ml IVFLUSH QSHIFT [facility] Last Admin: 07/29/24 07:34 Dose: Not Given Documented By: LILY Non-Admin Reason: IV Running Labs 07/29/24 04:38 07/29/24 04:38 Labs: Laboratory Results - last 24 hr 07/28/24 07/28/24 07/28/24 15:24 17:29 17:46 MCV 90.2 MCH 30.5 MCHC 33.8 RDW 12.5 Plt Count 336 MPV 9.7 Immature Gran % (Auto) 0.6 H Neut % (Auto) 87.9 H Lymph % (Auto) 5.4 L [place] % (Auto) 4.8 Eos % (Auto) 1.0 Baso % (Auto) 0.3 Lymph # (Auto) 0.8 L [place] # (Auto) 0.7 Eos # (Auto) 0.1 Baso # (Auto) 0.1 Abs Immat Gran (auto) 0.09 H Absolute Neuts (auto) 12.9 H Absolute Nucleated RBC 0.000 Nucleated RBC % (auto) 0.0 Anion Gap 15 Estim Creat Clear Calc 37.9 Estimated GFR 55 Random Glucose 124 H Calcium 9.1 Magnesium 1.9 Total Bilirubin 0.3 AST 27 ALT < 6 Alkaline Phosphatase 78 Troponin I High Sens 9.7 Total Protein 7.3 Albumin 3.1 L Urine Color Urine Appearance Urine pH Ur Specific [place] Urine Protein Urine Glucose (UA) Urine Ketones Urine Blood Urine Nitrite Ur Leukocyte Esterase Urine RBC Urine WBC Ur Squamous Epith Cells Urine Bacteria Hyaline Casts C. difficile Tox B Gene NEGATIVE Influenza Type A (PCR) NEGATIVE Influenza Type B (PCR) NEGATIVE RSV RNA Qual (PCR) NEGATIVE SARS-CoV-2 RNA (RT-PCR) NEGATIVE 07/28/24 07/29/24 21:09 04:38 MCV 91.5 MCH 30.8 MCHC 33.6 RDW 12.7 Plt Count 295 MPV 10.0 Immature Gran % (Auto) Neut % (Auto) Lymph % (Auto) [place] % (Auto) Eos % (Auto) Baso % (Auto) Lymph # (Auto) [place] # (Auto) Eos # (Auto) Baso # (Auto) Abs Immat Gran (auto) Absolute Neuts (auto) Absolute Nucleated RBC 0.000 Nucleated RBC % (auto) 0.0 Anion Gap 14 Estim Creat Clear Calc 31.6 Estimated GFR 45 Random Glucose 120 H Calcium 8.3 L D Magnesium 1.8 Total Bilirubin AST ALT Alkaline Phosphatase Troponin I High Sens Total Protein Albumin Urine Color Yellow Urine Appearance Turbid Urine pH 7.5 Ur Specific [place] 1.015 Urine Protein >=1000 (4+) H Urine Glucose (UA) Negative Urine Ketones Negative Urine Blood Trace H Urine Nitrite Negative Ur Leukocyte Esterase Large (3+) H Urine RBC 0-2 Urine WBC >50 H Ur Squamous Epith Cells 3-5 Urine Bacteria 4+ Hyaline Casts 3-5 C. difficile Tox B Gene Influenza Type A (PCR) Influenza Type B (PCR) RSV RNA Qual (PCR) SARS-CoV-2 RNA (RT-PCR) Assessment and Plan (1) Ileus: Status: Acute Plan Pt is an 89-year-old female with a PMH significant for?COPD chronically on 2-3L home O2, HTN, HLD, HFpEF, paroxysmal AFib on Eliquis, hx of [place] around 6 years ago, and hypothyroidism who presents to the ED from [facility] for evaluation of chest pain, nausea, vomiting, and diarrhea. Pt will be admitted to the hospital for treatment and further evaluation of intractable nausea, vomiting, diarrhea, and abdominal pain in the setting of enteritis. Suspected viral gastroenteritis leading to ileus rule out bacterial causes c. diff negative GI panel pending continue supportive care for now continue clear liquids, advance as tolerated slowly in light of ileus on imaging IVF with LR @ 100 cc/hr Acute UTI UA positive previous cultures showing resistent klebsiella -- but sensitive to levaquin will change merrem to levaquin Hypertensive urgency Patient's BP as high as 221/110 improving continue baseline meds HypoK likely due to GI loss repleted IV and PO recheck values later today Mg okay at 1.8 CAD Continue aspirin, statin Paroxysmal AFib Continue Eliquis, metoprolol GERD Continue famotidine COPD Not in acute exacerbation Continue home inhalers Hypothyroidism Continue levothyroxine Full Code DVT pptx - eliquis Quality Stroke Does the patient have a stroke diagnosis?: No VTE Prior VTE?: No VTE Risk Level:: Medical - moderate - high VTE Device Contraindication: Treatment Not Indicated VTE Drug Contraindication: N/A - Med Ordered
--- NOTE | 2024-07-29 11:19 | MHC.CM.PN ---
IMM 07/29/24, Pt resides at [facility]. HCP is on file and confirmed: Kelley, her grand dtr. PCP is Dr. Israel, clinical laboratory medical director. of [facility]. DCP: pt to return to [facility] via BLS. CM to follow for DC needs.
[2024-07-29] MEDS: Metoprolol Succinate ER 25 MG TAB.ER.24H PO (11:22)
[2024-07-29] MEDS: Famotidine 20 MG TABLET PO ×2 (11:22→21:32)
[2024-07-29] MEDS: levoFLOXacin/D5W 500 MG/100 ML PIGGYBACK 100 MG IV (11:22)
[2024-07-29] MEDS: amLODIPine Besylate 5 MG TABLET PO ×2 (11:22→21:33)
[2024-07-29] MEDS: Lactated Ringers 1,000 ML 100 ML IVCONT (11:23)
[2024-07-29] MEDS: Apixaban 2.5 MG TABLET PO ×2 (11:23→21:32)
--- NOTE | 2024-07-29 11:36 | PC.NURSE ---
medication administered per provider order. pills crushed/administered w. applesauce per pt request. no difficulties in swallowing noted. pt otherwise continues to rest in no apparent distress. denies pain. has no complaints. on RA w/o difficulty. no sob/wob noted. respirations even/unlabored. pending bed assignment. plan of care ongoing. call peters placed within reach.
--- NOTE | 2024-07-29 12:45 | PC.NURSE ---
pt incontinent of stool. pericare performed. new padding/sheets applied. pt turned/repositioned to comfort.
[2024-07-29 13:52] LABS: Potassium 3.6 mmol/L (3.3-5.1)
[2024-07-29 14:14] LABS: Adenovirus F 40/41 Not Detected (Not Detect.); Astrovirus Not Detected (Not Detect.); Campylobacter Not Detected (Not Detect.); Cryptosporidium Not Detected (Not Detect.); Cyclospora cayetanensis Not Detected (Not Detect.); E. coli EAEC Not Detected (Not Detect.); E. coli EPEC Not Detected (Not Detect.); E. coli ETEC Not Detected (Not Detect.); E. coli STEC Not Detected (Not Detect.); Entamoeba histolytica Not Detected (Not Detect.); Giardia lamblia Not Detected (Not Detect.); Plesiomonas shigelloides Not Detected (Not Detect.); Rotavirus A Not Detected (Not Detect.); Salmonella Not Detected (Not Detect.); Sapovirus Not Detected (Not Detect.); Shigella sp./EIEC Not Detected (Not Detect.); Vibrio Not Detected (Not Detect.); Vibrio Cholerae Not Detected (Not Detect.); Yersinia enterocolitica Not Detected (Not Detect.)
[2024-07-29] MEDS: hydrALAZINE HCl 25 MG TABLET PO ×2 (16:09→21:32)
--- NOTE | 2024-07-29 18:09 | PC.NURSE ---
pt incontinent of urine. bedding changed/fresh pads applied. pt turned/repositioned to comfort. pt pending transportation upstairs at this time.
[2024-07-29] MEDS: Mirtazapine 7.5 MG TABLET PO (21:32)
[2024-07-29] MEDS: Gabapentin 300 MG CAPSULE PO (21:32)
[2024-07-29] MEDS: Montelukast Sodium 10 MG TABLET PO (21:32)
[2024-07-29] MEDS: Magnesium Oxide 400 MG TABLET PO (21:33)
[2024-07-29] MEDS: Potassium Chloride ER 20 MEQ TAB.ER.PRT PO (22:01)
[2024-07-30] VITALS (7 sets, daily range): BP systolic 154–188; BP diastolic 60–82; PULSE 57–68; RESP 16–20; TEMP 36.2–36.9; O2SAT 95–99
[2024-07-30] MEDS: Acetaminophen 325 MG TABLET 650 MG PO ×2 (00:08→06:42)
[2024-07-30] MEDS: Lactated Ringers 1,000 ML 100 ML IVCONT (00:09)
[2024-07-30] MEDS: hydrALAZINE HCl 20 MG/ML VIAL 10 MG IVPUSH (04:56)
[2024-07-30] MEDS: Levothyroxine Sodium 50 MCG TABLET PO (05:29)
[2024-07-30 07:32] LABS: Hematocrit 36.9 % (37.0-47.0); Mean Corpuscular HGB Conc 32.5 g/dl (31.0-35.0); Mean Corpuscular Hemoglobin 30.3 pg (27.0-33.0); Mean Corpuscular Volume 93.2 fL (80.0-98.0); Platelet Count 248 X10*3/uL (160-400); Red Blood Count 3.96 X10*6/uL (4.20-5.50); Red Cell Distribution Width 12.7 % (11.0-16.0); White Blood Count 4.9 X10*3/uL (4.8-10.8)
[2024-07-30 07:46] LABS: Alanine Aminotransferase 14 U/L (0-31); Albumin Level 2.7 g/dL (3.5-5.0); Alkaline Phosphatase 134 U/L (39-117); Anion Gap 10 (12-20); Aspartate Amino Transferase 46 U/L (5-31); Bilirubin Total 0.3 mg/dL (0.0-1.0); Blood Urea Nitrogen 19 mg/dL (9-16); Carbon Dioxide 27 mmol/L (22-29); Chloride 103 mmol/L (96-108); Creatinine Clr Calc Pharmacy 30.3; Estimated Glomerular Filt Rate 42; Glucose Random 86 mg/dL (60-115); Magnesium 1.6 mg/dL (1.6-2.6); Potassium 3.2 mmol/L (3.3-5.1); Sodium 137 mmol/L (135-145); Total Protein 6.3 g/dL (6.5-8.0)
[2024-07-30] MEDS: Magnesium Sulfate/H2O 2 GM/50 ML PIGGYBACK IV (09:42)
[2024-07-30] MEDS: Potassium Chloride ER 20 MEQ TAB.ER.PRT PO ×2 (09:45→19:49)
[2024-07-30] MEDS: levoFLOXacin/D5W 500 MG/100 ML PIGGYBACK 100 MG IV (11:51)
--- NOTE | 2024-07-30 12:08 | P.PNIM_ITS ---
Subjective Subjective Date of Service: 07/30/24 Interval History: seen and examined d/w with staff editor - 1 BM overnight pt this AM reports less abd symptoms, though still not too interesting in coversing later informed by RN that patient declined multiple meds despite education on importance Review of Systems Negative except HPI/interval history. Physical Exam 2 Vital Signs: Vital Signs: Last Vital Signs Temp 98.4 F 07/30/24 11:25 Pulse 68 07/30/24 11:25 Resp 16 07/30/24 11:25 BP 177/79 H 07/30/24 11:25 Pulse Ox 97 07/30/24 11:25 O2 Del Method Nasal Cannula 07/30/24 11:25 O2 Flow Rate 2 07/30/24 11:25 FiO2 96 07/30/24 03:24 Oxygen Flow Rate 3 07/28/24 14:24 BMI result Body Mass Index 21.5 Const: Other: General - no acute distress, appears comfortable Cardiovascular - regular rate and rhythm, S1-S2 Lungs - normal respiratory effort, clear to auscultation bilaterally, no wheezing Abdomen - soft, nontender, no rebound or guarding Extremities - no edema bilaterally Neuro - awake and alert, no focal deficits Objective Data Active Medications Acetaminophen (Acetaminophen 325 Mg Tablet) 650 mg PO Q6H PRN PRN Reason: Pain, Mild 1-3,fever,headache Last Admin: 07/30/24 06:42 Dose: 650 mg Documented By: DENNIS Amlodipine Besylate (Amlodipine Besylate 5 Mg Tablet) 5 mg PO BID [facility]; Protocol Last Admin: 07/30/24 10:35 Dose: Not Given Documented By: ALEXANDER Non-Admin Reason: Patient Refused Apixaban (Apixaban 2.5 Mg Tablet) 2.5 mg PO BID [facility] Last Admin: 07/30/24 10:35 Dose: Not Given Documented By: ALEXANDER Non-Admin Reason: Patient Refused Ascorbic Acid (Ascorbic Acid 500 Mg Tablet) 500 mg PO DAILY [facility] Last Admin: 07/30/24 10:08 Dose: Not Given Documented By: ALEXANDER Non-Admin Reason: Patient Refused Aspirin (Aspirin Enteric Coated 81 Mg Tablet.) 81 mg PO DAILY [facility] Last Admin: 07/30/24 10:35 Dose: Not Given Documented By: ALEXANDER Non-Admin Reason: Patient Refused Calcium Carbonate (Calcium Carbonate 750 Mg Tab.Chew) 750 mg PO Q4H PRN PRN Reason: Heartburn Famotidine (Famotidine 20 Mg Tablet) 20 mg PO BID [facility] Last Admin: 07/30/24 10:38 Dose: Not Given Documented By: ALEXANDER Non-Admin Reason: Patient Refused Ferrous Sulfate (Ferrous Sulfate 324 Mg Tablet.) 324 mg PO DAILY [facility] Last Admin: 07/30/24 10:38 Dose: Not Given Documented By: ALEXANDER Non-Admin Reason: Patient Refused Gabapentin (Gabapentin 300 Mg Capsule) 300 mg PO BID [facility] Last Admin: 07/30/24 10:38 Dose: Not Given Documented By: ALEXANDER Non-Admin Reason: Patient Refused Hydralazine HCl (Hydralazine Hcl 25 Mg Tablet) 25 mg PO TID [facility]; Protocol Last Admin: 07/30/24 10:38 Dose: Not Given Documented By: ALEXANDER Non-Admin Reason: Patient Refused Levofloxacin (Levaquin) 500 mg in 100 mls @ 100 mls/hr IV Q24H [facility] Last Infusion: 07/30/24 11:57 Dose: 0 mls/hr Documented By: ALEXANDER Levothyroxine Sodium (Levothyroxine Sodium 50 Mcg Tablet) 50 mcg PO SUTUTHSA@0600 [facility] Last Admin: 07/30/24 05:29 Dose: 50 mcg Documented By: DENNIS Levothyroxine Sodium (Levothyroxine Sodium 75 Mcg Tablet) 75 mcg PO MOWEFR@0600 [facility] Magnesium Hydroxide (Milk Of Magnesia 30 Ml Oral.Susp) 30 ml PO DAILY PRN PRN Reason: Constipation Magnesium Oxide (Magnesium Oxide 400 Mg Tablet) 400 mg PO BEDTIME [facility] Last Admin: 07/29/24 21:33 Dose: 400 mg Documented By: DENNIS Melatonin (Melatonin 3 Mg Tablet) 6 mg PO BEDTIME PRN PRN Reason: Insomnia Metoprolol Succinate (Metoprolol Succinate Er 25 Mg Tab.Er.24h) 25 mg PO DAILY [facility]; Protocol Last Admin: 07/29/24 11:22 Dose: 25 mg Documented By: LILY Mirtazapine (Mirtazapine 7.5 Mg Tablet) 7.5 mg PO BEDTIME [facility] Last Admin: 07/29/24 21:32 Dose: 7.5 mg Documented By: DENNIS Montelukast Sodium (Montelukast Sodium 10 Mg Tablet) 10 mg PO BEDTIME [facility] Last Admin: 07/29/24 21:32 Dose: 10 mg Documented By: DENNIS Multivitamins/Vitamin C (Multivitamin Tablet) 1 tab PO DAILY [facility] Last Admin: 07/30/24 10:38 Dose: Not Given Documented By: ALEXANDER Non-Admin Reason: Patient Refused Ondansetron HCl (Ondansetron Hcl 4 Mg/2 Ml Vial) 4 mg IVPUSH Q8H PRN PRN Reason: Nausea and Vomiting Potassium Chloride (Potassium Chloride Er 20 Meq Tab.Er.Prt) 20 meq PO BID [facility] Last Admin: 07/30/24 09:45 Dose: 20 meq Documented By: ALEXANDER Sodium Chloride (0.9 % Sodium Chloride Flush 3 Ml Syringe) 3 ml IVFLUSH QSHIFT [facility] Last Admin: 07/30/24 09:44 Dose: Not Given Documented By: ALEXANDER Non-Admin Reason: IV Running Labs 07/30/24 07:02 07/30/24 07:02 Labs: Laboratory Results - last 24 hr 07/28/24 07/30/24 17:46 07:02 MCV 93.2 MCH 30.3 MCHC 32.5 RDW 12.7 Plt Count 248 MPV 10.0 Absolute Nucleated RBC 0.000 Nucleated RBC % (auto) 0.0 Anion Gap 10 L Estim Creat Clear Calc 30.3 Estimated GFR 42 Random Glucose 86 Calcium 8.0 L Magnesium 1.6 Total Bilirubin 0.3 AST 46 H ALT 14 Alkaline Phosphatase 134 H Total Protein 6.3 L Albumin 2.7 L Stl C. cayetanensis PCR Not Detected Stool Rotavirus A PCR Not Detected Stl Adenov F 40/41 PCR Not Detected Stool Astrovirus (PCR) Not Detected Stool Campylobacter PCR Not Detected Stool Cryptosporidium PCR Not Detected Stl Sh Tox Pr E STEC PCR Not Detected Stool E coli O157 PCR Not applicable Stl Enterotoxigenic E PCR Not Detected Stool EPEC (PCR) Not Detected Stool EAEC (PCR) Not Detected Stl E. histolytica PCR Not Detected Stool Giardia Lamblia PCR Not Detected Stl P. shigelloides PCR Not Detected Stool Salmonella PCR Not Detected Stool Sapovirus (PCR) Not Detected Stl Shigella/EIEC PCR Not Detected St Y.enterocolitica PCR Not Detected Stool Vibrio (PCR) Not Detected Stl Vibrio cholerae PCR Not Detected Stl Norovirus GI/GII PCR See Comment Microbiology Microbiology Results: Microbiology 07/28/24 Unknown Urine Culture - Preliminary Urine clean catch - Clean Catch Midstream Gram negative jairon Assessment and Plan (1) Ileus: Status: Acute Plan Pt is an 89-year-old female with a PMH significant for?COPD chronically on 2-3L home O2, HTN, HLD, HFpEF, paroxysmal AFib on Eliquis, hx of [place] around 6 years ago, and hypothyroidism who presents to the ED from [facility] for evaluation of chest pain, nausea, vomiting, and diarrhea. Pt will be admitted to the hospital for treatment and further evaluation of intractable nausea, vomiting, diarrhea, and abdominal pain in the setting of enteritis. Suspected viral (norovirus) gastroenteritis leading to ileus bacterial causes including c. diff ruled out continue supportive care for now continue clear liquids, advance as tolerated slowly in light of ileus on imaging advance to full liquids taper IVF once tolerating diet Acute UTI urine c&s growing GNR previous cultures showing resistent klebsiella -- but sensitive to levaquin, will continue the same Hypertensive urgency Patient's BP as high as 221/110 improving but pt intermittently refusing meds despite education on importance of compliance Sinus bradycardia (into the 30s while sleeping) noted while sleeping; pts HR appropriately responding with awakened / exerting replaced lytes as below continue to monitor on tele HypoK / low normal Mag given 40 kcl this AM and 2g IV CAD Continue aspirin, statin Paroxysmal AFib Continue Eliquis, metoprolol (hold due to sinus yudith) GERD Continue famotidine COPD Not in acute exacerbation Continue home inhalers Hypothyroidism Continue levothyroxine Full Code DVT pptx - eliquis reason for continued hospitalization: viral gastroenteritis and ileus, still on IVF + electrolyte abnormalities + sinus bradycardia Quality Stroke Does the patient have a stroke diagnosis?: No VTE Prior VTE?: No VTE Risk Level:: Medical - moderate - high VTE Device Contraindication: Treatment Not Indicated VTE Drug Contraindication: N/A - Med Ordered
[2024-07-30 12:32] LABS: Norovirus Stool PCR DETECTED
[2024-07-30] MEDS: hydrALAZINE HCl 25 MG TABLET PO ×2 (16:27→19:50)
[2024-07-30] MEDS: Famotidine 20 MG TABLET PO (19:49)
[2024-07-30] MEDS: Mirtazapine 7.5 MG TABLET PO (19:49)
[2024-07-30] MEDS: Gabapentin 300 MG CAPSULE PO (19:49)
[2024-07-30] MEDS: Apixaban 2.5 MG TABLET PO (19:49)
[2024-07-30] MEDS: amLODIPine Besylate 5 MG TABLET PO (19:49)
[2024-07-30] MEDS: Magnesium Oxide 400 MG TABLET PO (19:49)
[2024-07-30] MEDS: Montelukast Sodium 10 MG TABLET PO (19:49)
[2024-07-31] VITALS (7 sets, daily range): BP systolic 142–218; BP diastolic 58–82; PULSE 69–79; RESP 16–20; TEMP 36.1–36.7; O2SAT 96–97
[2024-07-31] MEDS: 0.9 % Sodium Chloride Flush 3 ML SYRINGE IVFLUSH ×4 (01:40→20:09)
[2024-07-31] MEDS: hydrALAZINE HCl 20 MG/ML VIAL IVPUSH (03:57)
[2024-07-31] MEDS: Levothyroxine Sodium 75 MCG TABLET PO (05:44)
[2024-07-31 08:39] LABS: Hematocrit 38.7 % (37.0-47.0); Hemoglobin 12.7 g/dl (12.0-16.0); Mean Corpuscular HGB Conc 32.8 g/dl (31.0-35.0); Mean Corpuscular Hemoglobin 29.9 pg (27.0-33.0); Mean Corpuscular Volume 91.1 fL (80.0-98.0); Mean Platelet Volume 10.4 fL (9.4-12.3); Platelet Count 265 X10*3/uL (160-400); Red Blood Count 4.25 X10*6/uL (4.20-5.50); Red Cell Distribution Width 12.9 % (11.0-16.0)
[2024-07-31 09:00] LABS: Anion Gap 12 (12-20); Blood Urea Nitrogen 14 mg/dL (9-16); Calcium 8.6 mg/dL (8.4-10.2); Carbon Dioxide 26 mmol/L (22-29); Chloride 102 mmol/L (96-108); Estimated Glomerular Filt Rate 52; Glucose Random 99 mg/dL (60-115); Potassium 3.3 mmol/L (3.3-5.1); Sodium 137 mmol/L (135-145)
[2024-07-31] MEDS: ondansetron HCL 4 MG/2 ML VIAL IVPUSH ×2 (10:37→20:09)
--- NOTE | 2024-07-31 14:37 | MHC.CM.PN ---
EMR REVIEWED, PT W/NOROVIRUS AND INCREASING O2 REQ, PT NOT MEDICALLY CLEARED FOR DC, PT WILL RETURN TO LTC AT [facility], CM WILL CONT TO FOLLOW DC NEEDS.
--- NOTE | 2024-07-31 16:10 | HO.PM.IMPN ---
Subjective Subjective Date of Service: 07/31/24 Interval History: No acute issues overnight. Discussed with staff. Continues to refuse all therapies and continues to refuse interaction Review of Systems Unable to obtain Physical Exam Vital Signs: Vital Signs: Last Vital Signs Temp 97.9 F 07/31/24 15:47 Pulse 72 07/31/24 15:47 Resp 20 07/31/24 15:47 BP 158/76 H 07/31/24 15:47 Pulse Ox 96 07/31/24 15:47 O2 Del Method Nasal Cannula 07/31/24 15:47 O2 Flow Rate 3 07/31/24 15:47 FiO2 96 07/30/24 03:24 Oxygen Flow Rate 3 07/28/24 14:24 BMI result Body Mass Index 21.5 Const: Other: Awake alert no acute distress Resp: Other: Clear to auscultation bilaterally no rales rhonchi or wheezes Cardio: Other: No S4; positive S1-S2; no S3 murmurs rubs or gallops GI: Other: Soft nontender nondistended normoactive bowel sounds Extrem: Other: No edema bilaterally Objective Data Active Medications Acetaminophen (Acetaminophen 325 Mg Tablet) 650 mg PO Q6H PRN PRN Reason: Pain, Mild 1-3,fever,headache Last Admin: 07/30/24 06:42 Dose: 650 mg Documented By: DENNIS Amlodipine Besylate (Amlodipine Besylate 5 Mg Tablet) 5 mg PO BID [facility]; Protocol Last Admin: 07/31/24 12:07 Dose: Not Given Documented By: SHAKIRA Non-Admin Reason: Pt states she cannot take as stomach upset Apixaban (Apixaban 2.5 Mg Tablet) 2.5 mg PO BID [facility] Last Admin: 07/31/24 12:08 Dose: Not Given Documented By: SHAKIRA Non-Admin Reason: Pt states she cannot take as stomach upset Ascorbic Acid (Ascorbic Acid 500 Mg Tablet) 500 mg PO DAILY [facility] Last Admin: 07/31/24 12:08 Dose: Not Given Documented By: SHAKIRA Non-Admin Reason: Pt states she cannot take as stomach upset Aspirin (Aspirin Enteric Coated 81 Mg Tablet.) 81 mg PO DAILY [facility] Last Admin: 07/31/24 12:08 Dose: Not Given Documented By: SHAKIRA Non-Admin Reason: Pt states she cannot take as stomach upset Calcium Carbonate (Calcium Carbonate 750 Mg Tab.Chew) 750 mg PO Q4H PRN PRN Reason: Heartburn Famotidine (Famotidine 20 Mg Tablet) 20 mg PO BID [facility] Last Admin: 07/31/24 12:09 Dose: Not Given Documented By: SHAKIRA Non-Admin Reason: Pt states she cannot take as stomach upset Ferrous Sulfate (Ferrous Sulfate 324 Mg Tablet.Dr) 324 mg PO DAILY [facility] Last Admin: 07/31/24 12:09 Dose: Not Given Documented By: SHAKIRA Non-Admin Reason: Pt states she cannot take as stomach upset Gabapentin (Gabapentin 300 Mg Capsule) 300 mg PO BID [facility] Last Admin: 07/31/24 12:09 Dose: Not Given Documented By: SHAKIRA Non-Admin Reason: Pt states she cannot take as stomach upset Hydralazine HCl (Hydralazine Hcl 25 Mg Tablet) 25 mg PO TID [facility]; Protocol Last Admin: 07/31/24 12:09 Dose: Not Given Documented By: SHAKIRA Non-Admin Reason: Pt states she cannot take as stomach upset Levofloxacin (Levofloxacin 750 Mg Tablet) 750 mg PO Q48H [facility] Last Admin: 07/31/24 12:09 Dose: Not Given Documented By: SHAKIRA Non-Admin Reason: Pt states she cannot take as stomach upset Levothyroxine Sodium (Levothyroxine Sodium 50 Mcg Tablet) 50 mcg PO SUTUTHSA@0600 [facility] Last Admin: 07/30/24 05:29 Dose: 50 mcg Documented By: DENNIS Levothyroxine Sodium (Levothyroxine Sodium 75 Mcg Tablet) 75 mcg PO MOWEFR@0600 [facility] Last Admin: 07/31/24 05:44 Dose: 75 mcg Documented By: MAYKEL Loperamide HCl (Loperamide Hcl 2 Mg Capsule) 2 mg PO Q4H PRN PRN Reason: Diarrhea Magnesium Hydroxide (Milk Of Magnesia 30 Ml Oral.Susp) 30 ml PO DAILY PRN PRN Reason: Constipation Magnesium Oxide (Magnesium Oxide 400 Mg Tablet) 400 mg PO BEDTIME [facility] Last Admin: 07/30/24 19:49 Dose: 400 mg Documented By: MAYKEL Melatonin (Melatonin 3 Mg Tablet) 6 mg PO BEDTIME PRN PRN Reason: Insomnia Metoprolol Succinate (Metoprolol Succinate Er 25 Mg Tab.Er.24h) 25 mg PO DAILY [facility]; Protocol Last Admin: 07/29/24 11:22 Dose: 25 mg Documented By: LILY Mirtazapine (Mirtazapine 7.5 Mg Tablet) 7.5 mg PO BEDTIME [facility] Last Admin: 07/30/24 19:49 Dose: 7.5 mg Documented By: MAYKEL Montelukast Sodium (Montelukast Sodium 10 Mg Tablet) 10 mg PO BEDTIME [facility] Last Admin: 07/30/24 19:49 Dose: 10 mg Documented By: MAYKEL Multivitamins/Vitamin C (Multivitamin Tablet) 1 tab PO DAILY [facility] Last Admin: 07/31/24 12:09 Dose: Not Given Documented By: SHAKIRA Non-Admin Reason: Pt states she cannot take as stomach upset Ondansetron HCl (Ondansetron Hcl 4 Mg/2 Ml Vial) 4 mg IVPUSH Q8H PRN PRN Reason: Nausea and Vomiting Last Admin: 07/31/24 10:37 Dose: 4 mg Documented By: SHAKIRA Potassium Chloride (Potassium Chloride Er 20 Meq Tab.Er.Prt) 20 meq PO BID [facility] Last Admin: 07/31/24 12:09 Dose: Not Given Documented By: SHAKIRA Non-Admin Reason: Pt states she cannot take as stomach upset Sodium Chloride (0.9 % Sodium Chloride Flush 3 Ml Syringe) 3 ml IVFLUSH QSHIFT [facility] Last Admin: 07/31/24 10:24 Dose: 3 ml Documented By: SHAKIRA Labs 07/31/24 07:46 07/31/24 07:46 Labs: Laboratory Results - last 24 hr 07/31/24 07:46 MCV 91.1 MCH 29.9 MCHC 32.8 RDW 12.9 Plt Count 265 MPV 10.4 Absolute Nucleated RBC 0.000 Nucleated RBC % (auto) 0.0 Anion Gap 12 Estim Creat Clear Calc 36.0 Estimated GFR 52 Random Glucose 99 Calcium 8.6 D Microbiology Microbiology Results: Microbiology 07/28/24 Unknown Urine Culture - Final Urine clean catch - Clean Catch Midstream Klebsiella pneumoniae Assessment and Plan (1) Ileus: Status: Acute (2) Acute UTI: Status: Acute Plan Pt is an 89-year-old female with a PMH significant for?COPD chronically on 2-3L home O2, HTN, HLD, HFpEF, paroxysmal AFib on Eliquis, hx of [place] around 6 years ago, and hypothyroidism who presents to the ED from [facility] for evaluation of chest pain, nausea, vomiting, and diarrhea. Pt will be admitted to the hospital for treatment and further evaluation of intractable nausea, vomiting, diarrhea, and abdominal pain in the setting of enteritis. 1.Suspected viral (norovirus) gastroenteritis leading to ileus -continues to refuse all therapies -continue clear liquids, advance as tolerated 2. UTI -resistent klebsiella -sensitive to levaquin, will continue the same -renally dose 3.Hypertensive urgency (resolved) -adjust therapies as indicated and clinically accepted by patient 4.Paroxysmal AFib -acceptable control off metoprolol -Eliquis as ordered Full Code Eliquis reason for continued hospitalization: viral gastroenteritis and ileus, still on IVF + electrolyte abnormalities + sinus bradycardia Quality Stroke Does the patient have a stroke diagnosis?: No VTE Prior VTE?: No VTE Risk Level:: Medical - moderate - high VTE Device Contraindication: Treatment Not Indicated VTE Drug Contraindication: N/A - Med Ordered
[2024-07-31] MEDS: hydrALAZINE HCl 25 MG TABLET PO ×2 (17:11→19:59)
[2024-07-31] MEDS: Mirtazapine 7.5 MG TABLET PO (19:59)
[2024-07-31] MEDS: Potassium Chloride ER 20 MEQ TAB.ER.PRT PO (19:59)
[2024-07-31] MEDS: amLODIPine Besylate 5 MG TABLET PO (19:59)
[2024-07-31] MEDS: Magnesium Oxide 400 MG TABLET PO (19:59)
[2024-07-31] MEDS: Famotidine 20 MG TABLET PO (19:59)
[2024-07-31] MEDS: levoFLOXacin 750 MG TABLET PO (19:59)
[2024-07-31] MEDS: Apixaban 2.5 MG TABLET PO (19:59)
[2024-07-31] MEDS: Gabapentin 300 MG CAPSULE PO (19:59)
[2024-07-31] MEDS: Montelukast Sodium 10 MG TABLET PO (19:59)
[2024-07-31] MEDS: Acetaminophen 325 MG TABLET 650 MG PO (23:32)
[2024-08-01 03:09] VITALS: BP 159/70; PULSE 74; RESP 18; TEMP 36.2; O2SAT 96
[2024-08-01] MEDS: Levothyroxine Sodium 50 MCG TABLET PO (05:18)
[2024-08-01] MEDS: Acetaminophen 325 MG TABLET 650 MG PO ×2 (05:27→14:53)
[2024-08-01 08:00] VITALS: BP 180/60; PULSE 78; RESP 16; TEMP 36.9; O2SAT 98
[2024-08-01] MEDS: Potassium Chloride ER 20 MEQ TAB.ER.PRT PO ×2 (09:05→20:42)
[2024-08-01] MEDS: Ferrous Sulfate 324 MG TABLET.DR PO (09:05)
[2024-08-01] MEDS: Ascorbic Acid 500 MG TABLET PO (09:05)
[2024-08-01] MEDS: Famotidine 20 MG TABLET PO ×2 (09:05→20:42)
[2024-08-01] MEDS: hydrALAZINE HCl 25 MG TABLET PO ×3 (09:05→20:42)
[2024-08-01] MEDS: Aspirin Enteric Coated 81 MG TABLET.DR PO (09:05)
[2024-08-01] MEDS: amLODIPine Besylate 5 MG TABLET PO ×2 (09:05→20:42)
[2024-08-01] MEDS: Apixaban 2.5 MG TABLET PO ×2 (09:05→20:42)
[2024-08-01] MEDS: Gabapentin 300 MG CAPSULE PO ×2 (09:05→20:42)
[2024-08-01] MEDS: Multivitamin TABLET 1 TAB PO (09:05)
[2024-08-01] MEDS: 0.9 % Sodium Chloride Flush 3 ML SYRINGE IVFLUSH ×2 (09:08→20:43)
[2024-08-01 12:00] VITALS: BP 140/56; PULSE 70; TEMP 36.4; O2SAT 93
[2024-08-01] MEDS: Trolamine Salicylate 10 % Cream 141 gm Tube 1 APPL TOPICAL ×2 (12:26→20:58)
--- NOTE | 2024-08-01 14:21 | MHC.CM.PN ---
Addendum entered by Prachi Elam RN 08/01/24 14:25: DC CANCELLED D/T PT C/O R KNEE PAIN AND REQUESTING XRAY, ANTIC SHE WILL DC TOMORROW 08/02. Original Note: IMM 08/01/24, PT MEDICALLY CLEARED FOR DC BACK TO [facility] FOR BLS TRANSPORT AT4PM
--- NOTE | 2024-08-01 14:25 | HO.PM.IMPN ---
Subjective Subjective Date of Service: 08/01/24 Interval History: Remains resistant to care. Diarrhea improving. Pain in right knee minimally relieved by Aspercreme Review of Systems Unable to obtain Physical Exam Vital Signs: Vital Signs: Last Vital Signs Temp 97.5 F 08/01/24 12:00 Pulse 70 08/01/24 12:00 Resp 16 08/01/24 08:00 BP 140/56 H 08/01/24 12:00 Pulse Ox 93 08/01/24 12:00 O2 Del Method Nasal Cannula 08/01/24 12:00 O2 Flow Rate 2 08/01/24 12:00 FiO2 96 07/30/24 03:24 Oxygen Flow Rate 3 07/28/24 14:24 BMI result Body Mass Index 21.5 Const: Other: Awake alert no acute distress Resp: Other: Clear to auscultation bilaterally no rales rhonchi or wheezes Cardio: Other: No S4; positive S1-S2; no S3 murmurs rubs or gallops GI: Other: Soft nontender nondistended normoactive bowel sounds Extrem: Other: No edema bilaterally Objective Data Active Medications Acetaminophen (Acetaminophen 325 Mg Tablet) 650 mg PO Q6H PRN PRN Reason: Pain, Mild 1-3,fever,headache Last Admin: 08/01/24 05:27 Dose: 650 mg Documented By: MAYKEL Amlodipine Besylate (Amlodipine Besylate 5 Mg Tablet) 5 mg PO BID [facility]; Protocol Last Admin: 08/01/24 09:05 Dose: 5 mg Documented By: SHAKIRA Apixaban (Apixaban 2.5 Mg Tablet) 2.5 mg PO BID [facility] Last Admin: 08/01/24 09:05 Dose: 2.5 mg Documented By: SHAKIRA Ascorbic Acid (Ascorbic Acid 500 Mg Tablet) 500 mg PO DAILY [facility] Last Admin: 08/01/24 09:05 Dose: 500 mg Documented By: SHAKIRA Aspirin (Aspirin Enteric Coated 81 Mg Tablet.) 81 mg PO DAILY [facility] Last Admin: 08/01/24 09:05 Dose: 81 mg Documented By: SHAKIRA Calcium Carbonate (Calcium Carbonate 750 Mg Tab.Chew) 750 mg PO Q4H PRN PRN Reason: Heartburn Famotidine (Famotidine 20 Mg Tablet) 20 mg PO BID [facility] Last Admin: 08/01/24 09:05 Dose: 20 mg Documented By: SHAKIRA Ferrous Sulfate (Ferrous Sulfate 324 Mg Tablet.) 324 mg PO DAILY [facility] Last Admin: 08/01/24 09:05 Dose: 324 mg Documented By: SHAKIRA Gabapentin (Gabapentin 300 Mg Capsule) 300 mg PO BID [facility] Last Admin: 08/01/24 09:05 Dose: 300 mg Documented By: SHAKIRA Hydralazine HCl (Hydralazine Hcl 25 Mg Tablet) 25 mg PO TID [facility]; Protocol Last Admin: 08/01/24 09:05 Dose: 25 mg Documented By: SHAKIRA Levofloxacin (Levofloxacin 750 Mg Tablet) 750 mg PO Q48H [facility] Last Admin: 07/31/24 19:59 Dose: 750 mg Documented By: MAYKEL Levothyroxine Sodium (Levothyroxine Sodium 50 Mcg Tablet) 50 mcg PO SUTUTHSA@0600 [facility] Last Admin: 08/01/24 05:18 Dose: 50 mcg Documented By: MAYKEL Levothyroxine Sodium (Levothyroxine Sodium 75 Mcg Tablet) 75 mcg PO MOWEFR@0600 [facility] Last Admin: 07/31/24 05:44 Dose: 75 mcg Documented By: MAYKEL Loperamide HCl (Loperamide Hcl 2 Mg Capsule) 2 mg PO Q4H PRN PRN Reason: Diarrhea Magnesium Hydroxide (Milk Of Magnesia 30 Ml Oral.Susp) 30 ml PO DAILY PRN PRN Reason: Constipation Magnesium Oxide (Magnesium Oxide 400 Mg Tablet) 400 mg PO BEDTIME [facility] Last Admin: 07/31/24 19:59 Dose: 400 mg Documented By: MAYKEL Melatonin (Melatonin 3 Mg Tablet) 6 mg PO BEDTIME PRN PRN Reason: Insomnia Metoprolol Succinate (Metoprolol Succinate Er 25 Mg Tab.Er.24h) 25 mg PO DAILY [facility]; Protocol Last Admin: 07/29/24 11:22 Dose: 25 mg Documented By: LILY Mirtazapine (Mirtazapine 7.5 Mg Tablet) 7.5 mg PO BEDTIME [facility] Last Admin: 07/31/24 19:59 Dose: 7.5 mg Documented By: MAYKEL Montelukast Sodium (Montelukast Sodium 10 Mg Tablet) 10 mg PO BEDTIME [facility] Last Admin: 07/31/24 19:59 Dose: 10 mg Documented By: MAYKEL Multivitamins/Vitamin C (Multivitamin Tablet) 1 tab PO DAILY [facility] Last Admin: 08/01/24 09:05 Dose: 1 tab Documented By: SHAKIRA Ondansetron HCl (Ondansetron Hcl 4 Mg/2 Ml Vial) 4 mg IVPUSH Q8H PRN PRN Reason: Nausea and Vomiting Last Admin: 07/31/24 20:09 Dose: 4 mg Documented By: MAYKEL Potassium Chloride (Potassium Chloride Er 20 Meq Tab.Er.Prt) 20 meq PO BID [facility] Last Admin: 08/01/24 09:05 Dose: 20 meq Documented By: SHAKIRA Sodium Chloride (0.9 % Sodium Chloride Flush 3 Ml Syringe) 3 ml IVFLUSH QSHIFT [facility] Last Admin: 08/01/24 09:08 Dose: 3 ml Documented By: SHAKIRA Trolamine Salicylate (Trolamine Salicylate 10 % Cream 141 Gm Tube) 1 appl TOPICAL QID PRN; Protocol PRN Reason: Pain, Mild (Pain Scale 1-3) Last Admin: 08/01/24 12:26 Dose: 1 appl Documented By: SHAKIRA Labs 07/31/24 07:46 07/31/24 07:46 Microbiology Microbiology Results: Microbiology 07/28/24 Unknown Urine Culture - Final Urine clean catch - Clean Catch Midstream Klebsiella pneumoniae Assessment and Plan (1) UTI (urinary tract infection): Status: Acute (2) Diarrhea: Status: Acute (3) Ileus: Status: Acute Plan Pt is an 89-year-old female with a PMH significant for?COPD chronically on 2-3L home O2, HTN, HLD, HFpEF, paroxysmal AFib on Eliquis, hx of [place] around 6 years ago, and hypothyroidism who presents to the ED from [facility] for evaluation of chest pain, nausea, vomiting, and diarrhea. Pt will be admitted to the hospital for treatment and further evaluation of intractable nausea, vomiting, diarrhea, and abdominal pain in the setting of enteritis. 1.Suspected viral (norovirus) gastroenteritis leading to ileus -continues to refuse most therapies -advance diet to regular 2. UTI -resistent klebsiella -sensitive to levaquin, will continue the same -renally dose 3.Hypertensive urgency (resolved) -adjust therapies as indicated and clinically accepted by patient 4.Paroxysmal AFib -acceptable control off metoprolol -Eliquis as ordered Full Code Eliquis reason for continued hospitalization: viral gastroenteritis and ileus, still on IVF + electrolyte abnormalities + sinus bradycardia Quality Stroke Does the patient have a stroke diagnosis?: No VTE Prior VTE?: No VTE Risk Level:: Medical - moderate - high VTE Device Contraindication: Treatment Not Indicated VTE Drug Contraindication: N/A - Med Ordered
[2024-08-01 14:53] VITALS: BP 194/64
[2024-08-01 15:53] VITALS: BP 165/69; PULSE 70; RESP 14; TEMP 36.6; O2SAT 95
[2024-08-01 20:00] VITALS: BP 200/82; PULSE 72; RESP 20; TEMP 36.2; O2SAT 92
[2024-08-01] MEDS: Mirtazapine 7.5 MG TABLET PO (20:42)
[2024-08-01] MEDS: Magnesium Oxide 400 MG TABLET PO (20:42)
[2024-08-01] MEDS: oxyCODONE HCl Immed Release 5 MG TABLET PO (20:42)
[2024-08-01] MEDS: Montelukast Sodium 10 MG TABLET PO (20:42)
[2024-08-02] VITALS (8 sets, daily range): BP systolic 132–212; BP diastolic 64–92; PULSE 64–77; RESP 16–17; TEMP 36–37; O2SAT 95–97
[2024-08-02] MEDS: Levothyroxine Sodium 75 MCG TABLET PO (06:35)
[2024-08-02] MEDS: Ferrous Sulfate 324 MG TABLET.DR PO (09:04)
[2024-08-02] MEDS: Aspirin Enteric Coated 81 MG TABLET.DR PO (09:04)
[2024-08-02] MEDS: Apixaban 2.5 MG TABLET PO ×2 (09:04→20:00)
[2024-08-02] MEDS: Gabapentin 300 MG CAPSULE PO ×2 (09:04→20:00)
[2024-08-02] MEDS: Famotidine 20 MG TABLET PO ×2 (09:04→20:00)
[2024-08-02] MEDS: Multivitamin TABLET 1 TAB PO (09:04)
[2024-08-02] MEDS: amLODIPine Besylate 10 MG TABLET PO (09:04)
[2024-08-02] MEDS: hydrALAZINE HCl 25 MG TABLET PO ×3 (09:04→20:00)
[2024-08-02] MEDS: Ascorbic Acid 500 MG TABLET PO (09:04)
[2024-08-02] MEDS: 0.9 % Sodium Chloride Flush 3 ML SYRINGE IVFLUSH ×2 (09:16→18:03)
--- NOTE | 2024-08-02 10:32 | MHC.CM.PN ---
CHARAN PT WILL DC BACK TO LTC AT [facility]SP[facility]
--- NOTE | 2024-08-02 13:43 | PM.DS ---
DS: Providers Provider Date of Service: 08/02/24 Date of admission: 07/28/24 22:07 Date of discharge: 08/02/24 Primary care physician: Niels Israel MD DS: Diagnosis Discharge Diagnosis (1) UTI (urinary tract infection): Status: Acute (2) Diarrhea: Status: Acute (3) Ileus: Status: Acute DS: Summary Hospital Course Hospital Course: 89-year-old female with a PMH significant for?COPD chronically on 2-3L home O2, HTN, HLD, HFpEF, paroxysmal AFib on Eliquis, hx of [place] around 6 years ago, and hypothyroidism who presents to the ED from [facility] for evaluation of chest pain, nausea, vomiting, and diarrhea. Pt is alert and oriented x3, but is overall a poor historian and quite irritable, not the most forthcoming in providing HPI. Pt continues to complain of nausea, vomiting, diarrhea, and abdominal pain worsened with movement, though symptom onset is unclear. Of note, pt had multiple episodes of explosive diarrhea while in the ED. denies significant shortness a breath or difficulty breathing. ?No fever, chills. In the ED pt was hypertensive up to 221/110, vitals otherwise stable and WNL. Labs were significant for leukocytosis of 14.7, otherwise grossly unremarkable and around baseline for pt. Stable H&H. No significant electrolyte abnormalities. Renal function baseline. Hepatic function WNL. Troponin WNL. UA positive for UTI. CXR showed small left pleural effusion but no pulmonary edema or pneumonia. CTA of head found no acute intracranial process. CT of abdomen/pelvis found small bowel ileus with probable enteritis without obstruction or ascites, as well as diffuse urinary bladder wall thickening suggestive of cystitis. EKG demonstrated sinus rhythm with PVCs and PACs. Pt was treated with ondansetron, hydralazine, metoclopramide, losartan, IVF, ceftriaxone, and metronidazole. Pt will be admitted to the hospital for treatment and further evaluation of intractable nausea, vomiting, diarrhea in the setting of enteritis. Hospital course Patient was admitted to telemetry and given IV volume repletion. Stool study eventually grew out norovirus. Over the course of the next several days stools firmed up inpatient became more alert receptive and tolerant of diet. Of note she did have complaints of right knee pain however x-rays failed to demonstrate any acute issues. She will be discharged back to long-term care and resume all therapies as prior to admission Time Attestation Discharge Coordination Time (in mins): 35 Quality: Safe Use of Opioids Does Pt have an Active Cancer Diagnosis on the Problem List?: No Quality: Stroke Does the patient have a stroke diagnosis?: No Physical Exam Vital Signs: Vital Signs: Last Vital Signs Temp 97.7 F 08/02/24 12:00 Pulse 64 08/02/24 12:00 Resp 16 08/02/24 07:58 BP 212/80 H 08/02/24 12:00 Pulse Ox 97 08/02/24 12:00 O2 Del Method Nasal Cannula 08/02/24 12:00 O2 Flow Rate 2 08/02/24 04:00 FiO2 96 07/30/24 03:24 Oxygen Flow Rate 3 07/28/24 14:24 BMI result Body Mass Index 21.5 Const: Other: Awake alert no acute distress Resp: Other: Clear to auscultation bilaterally no rales rhonchi or wheezes Cardio: Other: No S4; positive S1-S2; no S3 murmurs rubs or gallops GI: Other: Soft nontender nondistended normoactive bowel sounds Extrem: Other: No edema bilaterally Discharge Plan Discharge Anticipated Discharge Date/Time: 08/01/24 14:15 Patient Disposition: Xfer LTC Discharge Diagnosis: Acute viral gastroenteritis Referrals: Niels Israel MD [Primary Care Provider] - 1 Week Discharge Medications: New levofloxacin 750 mg Tablet 750 mg PO Q48H Qty: 4 0RF trolamine salicylate [Aspercreme] 10 % Cream 1 appl topical QID PRN (Reason: Pain, Mild (Pain Scale 1-3)) Qty: 85 0RF Protocol: Apply to: Apply to: bilat knees loperamide 2 mg Capsule 2 mg PO Q4H PRN (Reason: Diarrhea) Qty: 10 0RF Continued furosemide 20 mg Tablet 60 mg PO DAILY hydralazine 25 mg Tablet 25 mg PO TID Qty: 90 0RF Protocol: Hold for SBP< HOLD for SBP < : 90 aspirin 81 mg Capsule 81 mg PO DAILY ipratropium-albuterol 0.5 mg-3 mg(2.5 mg base)/3 mL solution for nebulization 3 ml inhalation Q4H PRN (Reason: Wheezing) polyethylene glycol 3350 [Miralax] 17 gram/dose powder 17 g PO DAILY Qty: 119 0RF Rx Instructions: Mix with 6-8 oz of beverage of choice levothyroxine 75 mcg tablet 75 mcg PO MOWEFR@0600 potassium chloride 20 mEq tablet,ER particles/crystals 20 meq PO BID Qty: 60 0RF magnesium hydroxide [Milk of Magnesia] 400 mg/5 mL Suspension 30 ml PO DAILY PRN (Reason: Constipation) Rx Instructions: for no BM in 3 days ( DO NOT GIVE WITH DIALYSIS RENAL /FAILURE) bisacodyl 10 mg Suppository 10 mg [place] DAILY PRN (Reason: Constipation) Rx Instructions: For no BM if M.O.M ineffective Fleet Enema 19-7 gram/118 mL Enema 118 ml [place] DAILY PRN (Reason: Constipation) Rx Instructions: For no BM &If Bisacodyl supp. ineffective (DO NOT GIVE WITH DIALYSIS/RENAL FAILURE) naloxone [Narcan] 4 mg/actuation [place],Non-Aerosol 4 mg INTRANASAL Q3M PRN (Reason: Opioid Overdose) Rx Instructions: spray 1 dose into ONE nostril; alternate nostrils w each dose until help arrives Eliquis 2.5 mg Tablet 2.5 mg PO BID Qty: 60 0RF metoprolol succinate [Toprol XL] 25 mg tablet extended release 24 hr 25 mg PO DAILY Qty: 30 0RF guaifenesin 100 mg/5 mL Liquid 200 mg PO Q4H ascorbic acid (vitamin C) 500 mg Tablet 500 mg PO DAILY docusate sodium [Colace] 100 mg Capsule 100 mg PO DAILY ferrous sulfate 325 mg (65 mg iron) Tablet,Delayed Release (Dr/Ec) 325 mg PO DAILY diclofenac sodium 1 % Gel 4 g TOPICAL DAILY Rx Instructions: Apply to bilateral shoulders mirtazapine 7.5 mg Tablet 7.5 mg PO BEDTIME sennosides [senna] 8.6 mg Tablet 8.6 mg PO DAILY PRN (Reason: Constipation) famotidine 20 mg tablet 20 mg PO BID montelukast 10 mg tablet 10 mg PO BEDTIME multivitamin Tablet 1 tab PO DAILY amlodipine 5 mg tablet 5 mg PO BID acetaminophen 325 mg Tablet 650 mg PO Q8H PRN (Reason: Fever Or Pain) levothyroxine 50 mcg tablet 50 mcg PO SUTUTHSA@0600 ipratropium bromide 17 mcg/actuation HFA aerosol inhaler 2 puff inhalation Q6H PRN (Reason: Shortness Of Breath) gabapentin 300 mg capsule 300 mg PO BID magnesium oxide 400 mg (241.3 mg magnesium) tablet 400 mg PO BEDTIME Discontinued levofloxacin 750 mg tablet 750 mg PO DAILY 1 Days Qty: 1 0RF Rx Instructions: Next dose March 11 around noon, 48 hrs from last dose Discharge Orders: Discharge Order (Routine); Ordered 08/02/24 Ordered By: Navjot Norris Diet: Advance to usual diet Activity on Discharge: As tolerated Stand Alone Forms: Patient Portal Discharge page Print Language: Setswana Care Plan Goals: Levaquin 750 every other day has been added to treat UTI. Health Concerns: Resume all other medications as listed on discharge summary Plan of Treatment: As per receiving facility Assessment: See discharge summary
--- NOTE | 2024-08-02 14:03 | MHC.CM.PN ---
Addendum entered by Prachi Elam RN 08/02/24 14:07: pt's hcp te haley contacted at number on file and agreeable to dc plan. Original Note: pt medically cleared for dc back to [facility] at 6pm.
[2024-08-02] MEDS: Magnesium Oxide 400 MG TABLET PO (20:00)
[2024-08-02] MEDS: levoFLOXacin 750 MG TABLET PO (20:00)
[2024-08-02] MEDS: Mirtazapine 7.5 MG TABLET PO (20:00)
[2024-08-02] MEDS: amLODIPine Besylate 2.5 MG TABLET 7.5 MG PO (20:00)
[2024-08-02] MEDS: Montelukast Sodium 10 MG TABLET PO (20:00)
--- NOTE | 2024-08-02 20:13 | PM.EVENT ---
Event Note Date of Service: 08/02/24 Event Note: 7:38 PM - contacted by nurse to let me know EMS is here and needing a doctor to sign a form due to patient's BP which is currently 200/80. Per chart review, SBP has been in the 200 since 4 pm and it seems hydralazine PO was given. It is unclear if BP has been rechecked after this interventions. I do not feel comfortable signing papers and patient leaving the hospital which such elevated BP. I am ordering Norvasc 7.5 mg PO now and to recheck in about 1-2 hours and make sure it is trending down. Patient has been discharged, however, patient will need to stay in the hospital until BP is acceptable. Time Spent With Patient Time: Total time managing care of this patient today ____ minutes.
[2024-08-02] MEDS: cloNIDine HCL 0.2 MG TABLET PO (23:09)
[2024-08-03] VITALS: BP 152/60; PULSE 68; RESP 17; TEMP 36.8; O2SAT 93
[2024-08-03 03:36] VITALS: BP 132/58; PULSE 56; RESP 16; TEMP 36.7; O2SAT 94
[2024-08-03] MEDS: Levothyroxine Sodium 50 MCG TABLET PO (06:19)
[2024-08-03 07:17] VITALS: BP 160/60; PULSE 60; RESP 18; TEMP 36.3; O2SAT 96
[2024-08-03] MEDS: Ascorbic Acid 500 MG TABLET PO (08:56)
[2024-08-03] MEDS: Apixaban 2.5 MG TABLET PO (08:56)
[2024-08-03] MEDS: Aspirin Enteric Coated 81 MG TABLET.DR PO (08:56)
[2024-08-03] MEDS: Multivitamin TABLET 1 TAB PO (08:56)
[2024-08-03] MEDS: Ferrous Sulfate 324 MG TABLET.DR PO (08:56)
[2024-08-03] MEDS: hydrALAZINE HCl 25 MG TABLET PO (08:56)
[2024-08-03] MEDS: Gabapentin 300 MG CAPSULE PO (08:57)
[2024-08-03] MEDS: Famotidine 20 MG TABLET PO (08:57)
[2024-08-03] MEDS: amLODIPine Besylate 10 MG TABLET PO (08:57)
[2024-08-03] MEDS: 0.9 % Sodium Chloride Flush 3 ML SYRINGE IVFLUSH (08:57)
[2024-08-03] MEDS: cloNIDine HCL 0.2 MG TABLET PO (09:35)
[2024-08-03 11:08] VITALS: BP 130/60; PULSE 52; RESP 18; TEMP 36; O2SAT 96
--- NOTE | 2024-08-03 11:45 | HO.PM.IMPN ---
Subjective Subjective Date of Service: 08/03/24 Interval History: Good response to additional antihypertensive therapy. No acute issues overnight Review of Systems Unable to obtain Physical Exam Vital Signs: Vital Signs: Last Vital Signs Temp 96.8 F 08/03/24 11:08 Pulse 52 08/03/24 11:08 Resp 18 08/03/24 11:08 BP 130/60 08/03/24 11:08 Pulse Ox 96 08/03/24 11:08 O2 Del Method Nasal Cannula 08/03/24 11:08 O2 Flow Rate 2 08/03/24 11:08 FiO2 96 07/30/24 03:24 Oxygen Flow Rate 3 07/28/24 14:24 BMI result Body Mass Index 21.5 Const: Other: Awake alert no acute distress Resp: Other: Clear to auscultation bilaterally no rales rhonchi or wheezes Cardio: Other: No S4; positive S1-S2; no S3 murmurs rubs or gallops GI: Other: Soft nontender nondistended normoactive bowel sounds Extrem: Other: No edema bilaterally Objective Data Active Medications Acetaminophen (Acetaminophen 325 Mg Tablet) 650 mg PO Q6H PRN PRN Reason: Pain, Mild 1-3,fever,headache Last Admin: 08/01/24 14:53 Dose: 650 mg Documented By: SHAKIRA Amlodipine Besylate (Amlodipine Besylate 10 Mg Tablet) 10 mg PO DAILY [facility]; Protocol Last Admin: 08/03/24 08:57 Dose: 10 mg Documented By: VARGAS Apixaban (Apixaban 2.5 Mg Tablet) 2.5 mg PO BID [facility] Last Admin: 08/03/24 08:56 Dose: 2.5 mg Documented By: VARGAS Ascorbic Acid (Ascorbic Acid 500 Mg Tablet) 500 mg PO DAILY [facility] Last Admin: 08/03/24 08:56 Dose: 500 mg Documented By: VARGAS Aspirin (Aspirin Enteric Coated 81 Mg Tablet.Dr) 81 mg PO DAILY [facility] Last Admin: 08/03/24 08:56 Dose: 81 mg Documented By: VARGAS Calcium Carbonate (Calcium Carbonate 750 Mg Tab.Chew) 750 mg PO Q4H PRN PRN Reason: Heartburn Clonidine HCl (Clonidine Hcl 0.2 Mg Tablet) 0.2 mg PO BID [facility]; Protocol Last Admin: 08/03/24 09:35 Dose: 0.2 mg Documented By: VARGAS Famotidine (Famotidine 20 Mg Tablet) 20 mg PO BID [facility] Last Admin: 08/03/24 08:57 Dose: 20 mg Documented By: VARGAS Ferrous Sulfate (Ferrous Sulfate 324 Mg Tablet.Dr) 324 mg PO DAILY [facility] Last Admin: 08/03/24 08:56 Dose: 324 mg Documented By: VARGAS Gabapentin (Gabapentin 300 Mg Capsule) 300 mg PO BID [facility] [place] Last Admin: 08/03/24 08:57 Dose: 300 mg Documented By: VARGAS Hydralazine HCl (Hydralazine Hcl 25 Mg Tablet) 25 mg PO TID [facility]; Protocol Last Admin: 08/03/24 08:56 Dose: 25 mg Documented By: VARGAS Levofloxacin (Levofloxacin 750 Mg Tablet) 750 mg PO Q48H [facility] Last Admin: 08/02/24 20:00 Dose: 750 mg Documented By: HERI Levothyroxine Sodium (Levothyroxine Sodium 50 Mcg Tablet) 50 mcg PO SUTUTHSA@0600 [facility] Last Admin: 08/03/24 06:19 Dose: 50 mcg Documented By: HERI Levothyroxine Sodium (Levothyroxine Sodium 75 Mcg Tablet) 75 mcg PO MOWEFR@0600 [facility] Last Admin: 08/02/24 06:35 Dose: 75 mcg Documented By: HERI Loperamide HCl (Loperamide Hcl 2 Mg Capsule) 2 mg PO Q4H PRN PRN Reason: Diarrhea Magnesium Hydroxide (Milk Of Magnesia 30 Ml Oral.Susp) 30 ml PO DAILY PRN PRN Reason: Constipation Magnesium Oxide (Magnesium Oxide 400 Mg Tablet) 400 mg PO BEDTIME [facility] Last Admin: 08/02/24 20:00 Dose: 400 mg Documented By: HERI Melatonin (Melatonin 3 Mg Tablet) 6 mg PO BEDTIME PRN PRN Reason: Insomnia Metoprolol Succinate (Metoprolol Succinate Er 25 Mg Tab.Er.24h) 25 mg PO DAILY [facility]; Protocol Last Admin: 07/29/24 11:22 Dose: 25 mg Documented By: LILY Mirtazapine (Mirtazapine 7.5 Mg Tablet) 7.5 mg PO BEDTIME [facility] Last Admin: 08/02/24 20:00 Dose: 7.5 mg Documented By: HERI Montelukast Sodium (Montelukast Sodium 10 Mg Tablet) 10 mg PO BEDTIME [facility] Last Admin: 08/02/24 20:00 Dose: 10 mg Documented By: HERI Multivitamins/Vitamin C (Multivitamin Tablet) 1 tab PO DAILY [facility] Last Admin: 08/03/24 08:56 Dose: 1 tab Documented By: VARGAS Ondansetron HCl (Ondansetron Hcl 4 Mg/2 Ml Vial) 4 mg IVPUSH Q8H PRN PRN Reason: Nausea and Vomiting Last Admin: 07/31/24 20:09 Dose: 4 mg Documented By: MAYKEL Oxycodone HCl (Oxycodone Hcl Immed Release 5 Mg Tablet) 5 mg PO Q4H PRN PRN Reason: Pain, Moderate(Pain Scale 4-6) Last Admin: 08/01/24 20:42 Dose: 5 mg Documented By: HERI Sodium Chloride (0.9 % Sodium Chloride Flush 3 Ml Syringe) [facility] Last Admin: 08/03/24 08:57 Dose: 3 ml Documented By: VARGAS Trolamine Salicylate (Trolamine Salicylate 10 % Cream 141 Gm Tube) 1 appl TOPICAL QID PRN; Protocol PRN Reason: Pain, Mild (Pain Scale 1-3) Last Admin: 08/01/24 20:58 Dose: 1 appl Documented By: HERI Comments: patient rates pain 6/10 pain in knee but requesting pain cream , despite pain scale only for 1-3 pain. oxycodone also given. Labs 07/31/24 07:46 07/31/24 07:46 Assessment and Plan (1) Acute UTI: Status: Acute (2) Ileus: Status: Acute Plan Pt is an 89-year-old female with a PMH significant for?COPD chronically on 2-3L home O2, HTN, HLD, HFpEF, paroxysmal AFib on Eliquis, hx of [place] around 6 years ago, and hypothyroidism who presents to the ED from [facility] for evaluation of chest pain, nausea, vomiting, and diarrhea. Pt will be admitted to the hospital for treatment and further evaluation of intractable nausea, vomiting, diarrhea, and abdominal pain in the setting of enteritis. 1.Suspected viral (norovirus) gastroenteritis leading to ileus -continues to refuse most therapies -advance diet to regular 2. UTI -resistent klebsiella -sensitive to levaquin, will continue the same -renally dose 3.Hypertensive urgency (resolved) -adjust therapies as indicated and clinically accepted by patient 4.Paroxysmal AFib -acceptable control off metoprolol -Eliquis as ordered Full Code Eliquis Quality Stroke Does the patient have a stroke diagnosis?: No VTE Prior VTE?: No VTE Risk Level:: Medical - moderate - high VTE Device Contraindication: Treatment Not Indicated VTE Drug Contraindication: N/A - Med Ordered
--- NOTE | 2024-08-03 12:14 | MHC.CM.PN ---
Second IMM given 08/03. Pt is medically cleared for discharge back to LTC at [facility] via BLS/Ganesh. Pts HCP notified, voicemail was left.
== END 2024-08-03 11:59 | DRG 392 ==
LOC: HO.ED 17:03 → HO.EDOVER 22:14 → HO.IMC 07-29 16:35
PROVIDERS: Family Medicine; Physician Assistant Medical; Admitting Provider Student in an Organized Health Care Education/Training Program; Emergency Provider Internal Medicine; PCP Family Medicine; Visit Provider Hospitalist
DX: A08.11 Acute gastroenteropathy due to Norwalk agent (principal); K56.7 Ileus, unspecified; I13.0 Hypertensive heart and chronic kidney disease with heart failure and stage 1 through stage 4 chronic kidney disease, or unspecified chronic kidney disease; I50.32 Chronic diastolic (congestive) heart failure; E03.9 Hypothyroidism, unspecified; I25.10 Atherosclerotic heart disease of native coronary artery without angina pectoris; K21.9 Gastro-esophageal reflux disease without esophagitis; I48.0 Paroxysmal atrial fibrillation; I16.0 Hypertensive urgency; E87.6 Hypokalemia; R00.1 Bradycardia, unspecified; J44.9 Chronic obstructive pulmonary disease, unspecified; I25.2 Old myocardial infarction; N18.30 Chronic kidney disease, stage 3 unspecified; Z20.822 Contact with and (suspected) exposure to COVID-19; Z87.440 Personal history of urinary (tract) infections; Z99.81 Dependence on supplemental oxygen; Z79.01 Long term (current) use of anticoagulants; Z79.82 Long term (current) use of aspirin; Z79.890 Hormone replacement therapy; Z79.899 Other long term (current) drug therapy
CPT/HCPCS: 0241U; 36415; 70450; 71045; 73560; 74176; 80048; 80053; 81001; 83735; 84132; 84484; 85025; 85027; 87086; 87088; 87186; 87493; 87507; 93005; 99285; J0360; J0696; J1836; J1920; J1956; J2185; J2405; J2765; J3475; J3480; J7120

== ENCOUNTER → 2024-07-28 14:27 | Outpatient (BNV) | payer MEDICARE, MEDICAID, SELFPAY | PROVIDERS: Admitting Provider Student in an Organized Health Care Education/Training Program; Emergency Provider Internal Medicine; PCP Family Medicine; Visit Provider Internal Medicine Cardiovascular Disease | DX: R94.31 Abnormal electrocardiogram [ECG] [EKG] (principal) | CPT/HCPCS: 93010 ==

== ENCOUNTER → 2024-07-28 16:01 | Outpatient (BNV) | payer MEDICARE, MEDICAID, SELFPAY | PROVIDERS: Emergency Provider Internal Medicine; PCP Family Medicine; Visit Provider Radiology Diagnostic Radiology | DX: J90 Pleural effusion, not elsewhere classified (principal); R11.2 Nausea with vomiting, unspecified; K56.7 Ileus, unspecified; K57.32 Diverticulitis of large intestine without perforation or abscess without bleeding | CPT/HCPCS: 70450; 71045; 74176 ==

== ENCOUNTER 2024-07-28 22:07 | Outpatient (BNV) | payer MEDICARE, MEDICAID, SELFPAY | END 2024-08-01 16:00 | PROVIDERS: Admitting Provider Student in an Organized Health Care Education/Training Program; Emergency Provider Internal Medicine; PCP Family Medicine; Visit Provider Specialist | DX: M25.561 Pain in right knee (principal) | CPT/HCPCS: 73560 ==

== ENCOUNTER → 2024-07-28 22:07 | Outpatient (BNV) | payer MEDICARE, MEDICAID, SELFPAY | PROVIDERS: Admitting Provider Student in an Organized Health Care Education/Training Program; Emergency Provider Internal Medicine; PCP Family Medicine; Visit Provider Student in an Organized Health Care Education/Training Program | DX: N39.0 Urinary tract infection, site not specified (principal); R19.7 Diarrhea, unspecified; K56.7 Ileus, unspecified | CPT/HCPCS: 99232; 99233; 99239; 99499 ==

== ENCOUNTER 2024-08-12 22:25 | Inpatient (IN) | payer MEDICARE, MEDICAID, SELFPAY ==
--- NOTE | ~2024-08-12 | CT_ITS ---
CLINICAL HISTORY: diffuse abd pain,, poor historian CT abdomen and pelvis without contrast Comparison: CT/SR - CT ABDOMEN PELVIS WO IV CON - 07/28/24 16:43 EST Findings: This examination is mildly degraded by artifact. Minimal dependent bilateral lower lobe atelectasis versus infiltrates present with possible trace bilateral pleural fluid. The gallbladder is not visualized, presumed surgically absent. solid organs are within normal limits. No renal stones. No hydronephrosis. No bowel obstruction, pneumoperitoneum, or pneumatosis. Small to moderate hiatal hernia partially visualized. There is colonic diverticulosis without CT evidence for acute diverticulitis. Small, fat containing umbilical hernia. Fusiform 3.7 x 3.4 cm infrarenal abdominal aorta aneurysm present. There are severe atherosclerotic calcifications at the aortoiliac system. Low-attenuation structure redemonstrated at the right hemipelvis, measuring up to 8.6 cm in maximum axial dimension. There is borderline bladder wall thickening. The bladder is mildly distended with fluid. Nonvisualization of the appendix. Compression deformities are present at the T11, T12, and L3 vertebral bodies, unchanged in appearance as compared to the prior examination. Grade 1 anterolisthesis of L4 on L5 redemonstrated. Multilevel bilateral degenerative facet arthropathy present at the lumbar spine. Evnc-zu-[id number], diffuse body wall edema present. IMPRESSION: 1. Borderline bladder wall thickening. This may represent sequela of bladder underdistention. Mild cystitis is not excluded. May consider correlation with urinalysis results for further evaluation as clinically directed. 2. Small to moderate hiatal hernia. No bowel obstruction. 3. Colonic diverticulosis. No CT evidence for acute diverticulitis. 4. Low-attenuation structure redemonstrated at the right hemipelvis, measuring up to 8.6 cm in maximum axial dimension, possibly consistent with a right adnexal cyst. A similar finding was present on the prior examination. 5. Fusiform 3.7 x 3.4 cm infrarenal abdominal aorta aneurysm redemonstrated. There are extensive atherosclerotic calcifications at the aortoiliac system. This document has been electronically signed by: Abraham Dominguez MD on 08/13/2024 00:18:29
[2024-08-12 22:38] VITALS: BP 210/90; PULSE 60; O2SAT 98
[2024-08-12 22:51] VITALS: BP 183/60; PULSE 61; RESP 14; TEMP 36.6; O2SAT 98; BMI 21.6
--- NOTE | 2024-08-12 23:02 | ECG_ITS ---
Test Reason : SYNCOPE Blood Pressure : */* mmHG Vent. Rate : 66 BPM Atrial Rate : 66 BPM P-R Int : 196 ms QRS Dur : 72 ms QT Int : 396 ms P-R-T Axes : 80 9 43 degrees QTcB Int : 415 ms Normal sinus rhythm Anteroseptal infarct (cited on or before 28-Sep-2023) Abnormal ECG When compared with ECG of 28-Jul-2024 17:41, Premature ventricular complexes are no longer Present Premature atrial complexes are no longer Present Nonspecific T wave abnormality no longer evident in Lateral leads QT has shortened Referred By: Opal Manuel Electronically Signed By: Minh Womack
--- NOTE | 2024-08-12 23:03 | ED.GENADULT ---
HPI - General Adult General Chief complaint: Weakness Stated complaint: 2 syncopal episodes, alert&oriented, weak Time Seen by Provider: 08/12/24 22:32 Source: EMS Mode of arrival: EMS Limitations: other (Poor historian) History of Present Illness ED Provider: Dr. Opal Manuel HPI narrative: Patient comes to the emergency room via ambulance from [facility]. According to EMS, the staff [facility] said that the patient had syncopal episodes. The EMS crew reports that the staff at the long-term [facility] said that they believe she passed out, maybe yes, maybe no, and they did not have any other information or did not know anything about the patient. Patient is poor historian. Patient states that she does not believe that she passed out, states that she has been having abdominal pain and loose stools. Of note, patient was discharged from this hospital about week and a half ago for norovirus and a UTI Related Data Home Medications ?Medication ?Instructions ?Recorded ?Confirmed gabapentin 300 mg capsule 300 mg PO BID Pain 07/13/20 07/29/24 ipratropium bromide 17 2 puff inhalation Q6H PRN 07/13/20 07/29/24 mcg/actuation HFA aerosol inhaler Shortness Of Breath levothyroxine 50 mcg tablet 50 mcg PO SUTUTHSA@0600 07/13/20 07/29/24 magnesium oxide 400 mg (241.3 mg 400 mg PO BEDTIME 07/13/20 07/29/24 magnesium) tablet famotidine 20 mg tablet 20 mg PO BID 12/21/22 07/29/24 montelukast 10 mg tablet 10 mg PO BEDTIME 12/21/22 07/29/24 multivitamin 1 tab PO DAILY 12/21/22 07/29/24 furosemide 20 mg tablet 60 mg PO DAILY 09/28/23 07/29/24 aspirin 81 mg capsule 81 mg PO DAILY 10/27/23 07/29/24 ipratropium 0.5 mg-albuterol 3 mg 3 ml inhalation Q4H PRN Wheezing 10/27/23 07/29/24 (2.5 mg base)/3 mL nebulization soln acetaminophen 325 mg tablet 650 mg PO Q8H PRN Fever Or Pain 11/06/23 07/29/24 levothyroxine 75 mcg tablet 75 mcg PO MOWEFR@0600 11/22/23 07/29/24 bisacodyl 10 mg rectal suppository 10 mg NC DAILY PRN Constipation 12/07/23 07/29/24 magnesium hydroxide 400 mg/5 mL 30 ml PO DAILY PRN Constipation 12/07/23 07/29/24 oral suspension (Milk of Magnesia) naloxone 4 mg/actuation nasal 4 mg intranasal Q3M PRN Opioid 12/07/23 07/29/24 spray (Narcan) Overdose sodium phosphates 19 gram-7 118 ml NC DAILY PRN Constipation 12/07/23 07/29/24 gram/118 mL enema (Fleet Enema) ascorbic acid (vitamin C) 500 mg 500 mg PO DAILY 03/06/24 07/29/24 tablet diclofenac sodium 1 % topical gel 4 g topical DAILY 03/06/24 07/29/24 docusate sodium 100 mg capsule 100 mg PO DAILY 03/06/24 07/29/24 (Colace) ferrous sulfate 325 mg (65 mg 325 mg PO DAILY 03/06/24 07/29/24 iron) tablet,delayed release guaifenesin 100 mg/5 mL oral liquid 200 mg PO Q4H 03/06/24 07/29/24 mirtazapine 7.5 mg tablet 7.5 mg PO BEDTIME 03/06/24 07/29/24 sennosides 8.6 mg tablet (senna) 8.6 mg PO DAILY PRN Constipation 07/29/24 07/29/24 Previous Rx's ?Medication ?Instructions ?Recorded hydralazine 25 mg tablet 25 mg PO TID #90 tabs 10/05/23 polyethylene glycol 3350 17 17 g PO DAILY #119 grams 10/29/23 gram/dose oral powder (Miralax) potassium chloride 20 mEq 20 meq PO BID #60 tabs 12/03/23 tablet,extended release(part/cryst) apixaban 2.5 mg tablet (Eliquis) 2.5 mg PO BID #60 tabs 12/10/23 metoprolol succinate 25 mg 25 mg PO DAILY #30 tabs 12/10/23 tablet,extended release 24 hr (Toprol XL) levofloxacin 750 mg tablet 750 mg PO Q48H #4 tabs 08/01/24 loperamide 2 mg capsule 2 mg PO Q4H PRN Diarrhea #10 caps 08/01/24 trolamine salicylate 10 % topical 1 appl topical QID PRN Pain, Mild 08/01/24 cream (Aspercreme) (Pain Scale 1-3) #85 grams amlodipine 10 mg tablet 10 mg PO DAILY #30 tabs 08/03/24 clonidine HCl 0.2 mg tablet 0.2 mg PO BID #60 tabs 08/03/24 oxycodone 5 mg tablet 5 mg PO Q4H PRN Pain, 08/03/24 Moderate(Pain Scale 4-6) #30 tabs Allergies Allergy/AdvReac Type Severity Reaction Status Date / Time adhesive tape [Adhesive Tape] Allergy Unknown RASH Verified 08/12/24 22:53 codeine [Codeine] Allergy Unknown SWELLING Verified 08/12/24 22:53 Iodinated Contrast Media Allergy Unknown UNKNOWN Verified 08/12/24 22:53 [IV Dye, Iodine Containing] iodine [Iodine] Allergy Unknown UNKNOWN Verified 08/12/24 22:53 oxycodone [Percocet] Allergy Unknown unknown Verified 08/12/24 22:53 papaya [Papaya] Allergy Unknown HIVES Verified 08/12/24 22:53 pineapple [Pineapple] Allergy Unknown HIVES Verified 08/12/24 22:53 strawberry [[place]] Allergy Unknown HIVES Verified 08/12/24 22:53 Codeine Phosphate Allergy Unknown unknown Uncoded 07/28/24 14:25 Novocain Allergy Unknown unknown Uncoded 07/28/24 14:25 From Vicodin AdvReac Unknown NAUSEA & Uncoded 07/28/24 14:25 VOMITING Review of Systems Review of Systems: Complaining of abdominal pain and loose stools Patient denies chest pain or shortness of breath Denies syncopal episodes Yes Other (Poor historian) [facility] Past Medical History Medical History Atrial fibrillation with RVR Adnexal mass Abdominal aortic aneurysm CKD (chronic kidney disease) stage 3, GFR 30-59 ml/min Myocardial infarction Hypothyroidism Hyperlipidemia COPD (chronic obstructive pulmonary disease) HTN (hypertension) PAF (paroxysmal atrial fibrillation) Family History Family History Father History of heart disease Mother History of heart disease Social History Social History Household Members: Other Housing: Residential Housing Other:: [place] Do you presently have visiting nurse or other home services: Yes Alcohol intake: never Comment: sitter present Patient Tobacco Use Status: Never used Tobacco Smoked in Last 30 Days: No Use of substances other than those prescribed or required for medical reasons: No Advance Directives: Yes Advance Directives on File: Yes Advance Directives Date on File: 10/16/23 Do you have a plan to hurt others: No Plan service: No Current occupational status: retired Physical Exam ED Vital Signs: Vital Signs - 24 hr 08/12/24 22:51 08/13/24 04:02 Temperature 97.9 F 98.2 F Pulse Rate 61 61 Respiratory Rate 14 10 L Blood Pressure 183/60 H 142/42 H Pulse Oximetry 98 97 Oxygen Delivery Method Nasal Cannula Nasal Cannula Oxygen Flow Rate 2 BMI result Body Mass Index 21.6 Const Other: Appearance: Alert. Seems weak, trouble sitting up by herself , alert to person Eyes: Pupils equal, round and reactive to light. ENT: Pharynx normal. Neck: Normal inspection. Neck supple. No lymph nodes noted. No crepitus CVS: Normal heart rate and rhythm. Pulses normal. Normal S1 and S2 Respiratory: No respiratory distress. Breath sounds normal. No Wheezing. No rales Abdomen: Soft, seems to have discomfort to palpation in all quadrants, no rebound or guarding, No rigidity. No distention. Skin: Skin warm and dry. Normal skin color. Normal skin turgor. Extremities: No lower extremity edema. No Lacerations. No Rash Neuro: No motor deficit. No sensory deficit. Moving all extremities. No slurred speech. CN 2 through 12 grossly intact Psych: calm, cooperative, normal affect Course Course Course Narrative: It is unclear what happened at the long-term facility Patient's story does not match the report that the staff gave to the EMS crew. However patient is a poor historian, and the staff at the long-term facility were also unable to give a good report Patient known to be recovering from norovirus, discharged from the hospital a week and half ago Medications Administered Discontinued Medications Generic Name Dose Route Start Last Admin Trade Name Freq PRN Reason Stop Dose Admin Lactated Ringer's 1,000 mls @ 999 mls/hr 08/13/24 01:30 08/13/24 03:00 Lr IV 08/13/24 02:30 Infused .Q1H1M TOBI Infusion Medical Decision Making Medical Decision Making [facility] Narrative: My interpretation of labs: At baseline hematology, normal white blood cell count. Chemistry shows an increase in creatinine of 1.8. Couple of weeks ago patient's creatinine at baseline is 1.01. Urinalysis negative for UTI, serology negative for COVID, influenza I discussed the patient with Dr. Mendez, pt being admitted for RONAK CT scan of the abdomen does not show any acute abnormality. Chronic ovarian cyst Differential Diagnosis Differential Diagnoses: The differential diagnosis associated with the presentation includes (Dehydration, norovirus, viral syndrome) Admission/Observation Consideration of admission/observation: Escalation of care including admission/observation considered Consult Healthcare Provider Management of the patient was discussed with: Hospitalist Lab Data [facility] Lab Attestation statement: I reviewed the patient's lab results. 08/12/24 23:35 08/13/24 04:03 Labs: Lab Results 08/12/24 08/13/24 08/13/24 Range/Units 23:35 01:20 04:03 WBC 10.7 (4.8-10.8) X10*3/uL RBC 3.91 L (4.20-5.50) X10*6/uL Hgb 12.0 (12.0-16.0) g/dl Hct 35.9 L (37.0-47.0) % MCV 91.8 (80.0-98.0) fL MCH 30.7 (27.0-33.0) pg MCHC 33.4 (31.0-35.0) g/dl RDW 13.7 (11.0-16.0) % Plt Count 307 (160-400) X10*3/uL MPV 9.9 (9.4-12.3) fL Immature Gran % (Auto) 0.8 H (0.0-0.4) % Neut % (Auto) 73.6 H (45-73) % Lymph % (Auto) 11.2 L (20-40) % [place] % (Auto) 10.6 (2-11) % Eos % (Auto) 3.3 (0-4) % Baso % (Auto) 0.5 (0-2) % Lymph # (Auto) 1.2 (1.2-4.9) X10*3/uL [place] # (Auto) 1.1 (0.1-1.2) X10*3/uL Eos # (Auto) 0.4 (0.0-0.4) X10*3/uL Baso # (Auto) 0.1 (0.0-0.2) X10*3/uL Abs Immat Gran (auto) 0.09 H (0.00-0.03) X10*3/uL Absolute Neuts (auto) 7.9 (2.0-8.3) x10*3/uL Absolute Nucleated RBC 0.000 (0.0-0.012) X10*3/uL Nucleated RBC % (auto) 0.0 (0.0-0.2) /100WBC PT 12.7 H (10.9-12.4) SEC INR 1.1 (0.9-1.1) Sodium 136 138 (135-145) mmol/L Potassium 5.2 H D 5.2 H (3.3-5.1) mmol/L Chloride 101 105 (96-108) mmol/L Carbon Dioxide 27 25 (22-29) mmol/L Anion Gap 13 13 (12-20) BUN 44 H 42 H (9-16) mg/dL Creatinine 1.80 H 1.76 H (0.5-1.4) mg/dL Estim Creat Clear Calc 19.4 19.8 Estimated GFR 27 27 Random Glucose 111 89 (60-115) mg/dL Lactic Acid 1.4 (0.5-2.0) mmol/L Calcium 9.0 8.2 L D (8.4-10.2) mg/dL Magnesium 2.4 (1.6-2.6) mg/dL Total Bilirubin 0.4 (0.0-1.0) mg/dL Direct Bilirubin 0.1 (0.0-0.5) mg/dL AST 31 (5-31) U/L ALT 20 (0-31) U/L Alkaline Phosphatase 67 (39-117) U/L Troponin I High Sens 9.8 (<3.5-17.0) ng/L Total Protein 7.0 (6.5-8.0) g/dL Albumin 3.3 L (3.5-5.0) g/dL Lipase 63 (8-78) U/L TSH 7.76 H (0.32-4.0) uIU/mL Free T4 1.07 (0.71-1.85) ng/dL Urine Color Yellow Urine Appearance Clear Urine pH 6.0 (5.0-9.0) Ur Specific [place] 1.015 (1.005-1.025) Urine Protein 300 (3+) H (Neg-Trace) mg/dL Urine Glucose (UA) Negative (Negative) mg/dL Urine Ketones Negative (Negative) mg/dL Urine Blood Negative (Negative) Urine Nitrite Negative (Negative) Ur Leukocyte Esterase Negative (Negative) Urine RBC 0-2 (0-2) /HPF Urine WBC 0-5 (0-5) /HPF Ur Squamous Epith Cells 0-2 (0-2) /HPF Urine Bacteria None Seen (None Seen) Hyaline Casts 3-5 (0-2) /LPF Urine Opiates Screen Not Detected (Not Detect) Ur Buprenorphine Scrn Not Detected (Not Detect) ng/mL Ur Oxycodone Screen Not Detected (Not Detect) ng/mL Urine Methadone Screen Not Detected (Not Detect) ng/mL Urine Fentanyl Screen Not Detected (Not Detect) Ur Barbiturates Screen Not Detected (Not Detect) Ur Phencyclidine Scrn Not Detected (Not Detect) Ur Amphetamines Screen Not Detected (Not Detect) U Benzodiazepines Scrn Not Detected (Not Detect) Urine Cocaine Screen Not Detected (Not Detect) U Marijuana (THC) Screen Not Detected (Not Detect) COVID-19 (GABE) Negative (Negative) COVID-19 Clin Com See Note Influenza Type A (MILANA) Negative (Negative) Influenza Type B (MILANA) Negative (Negative) Influenza A & B Note See Note Independent Interpretation I performed an independent interpretation of an: CT Scan Radiology Impression Discussion of test interpretation with radiology: I have reviewed the radiologist's reading. Radiologist Impression: 1. Borderline bladder wall thickening. This may represent sequela of bladder underdistention. Mild cystitis is not excluded. May consider correlation with urinalysis results for further evaluation as clinically directed. 2. Small to moderate hiatal hernia. No bowel obstruction. 3. Colonic diverticulosis. No CT evidence for acute diverticulitis. 4. Low-attenuation structure redemonstrated at the right hemipelvis, measuring up to 8.6 cm in maximum axial dimension, possibly consistent with a right adnexal cyst. A similar finding was present on the prior examination. 5. Fusiform 3.7 x 3.4 cm infrarenal abdominal aorta aneurysm redemonstrated. There are extensive atherosclerotic calcifications at the aortoiliac system. Critical Care Time Critical Care Time Critical Care Time: Yes Total Critical Care Time: 60 Attestation: I have personally provided critical care time. Time includes review of lab data, radiology results, discussion with consultants, and monitoring for potential decompensation. Intervention performed as documented. Discharge Plan Discharge Clinical Impression: Abdominal pain, Acute kidney injury Patient Disposition: Admitted As Inpatient Print Language: Polish
--- OUTSIDE RECORDS SUMMARY | 2024-08-12 23:31 | XMS_ITS | Data Portability ---
Author Organization [facility] [email or web address] [facility], Main Office Address [address] [facility] [place] [address] Care Team Providers Care Office Automation Clerk Name Role Phone TUYET BOWLES - [...] Address Organization Details Recorded Time Essential hypertension 57473601 Active 2023 Zully Moyer NP [address] , [address], [place], [address], [facility] [email or web address] [facility] 4 12:51:24 Chronic obstructive pulmonary disease 86394540 Active 2023 Zully Moyer NP [address] , [address], [place], [address], [facility] [email or web address] [facility] 4 12:51:37 Atrial fibrillation 94130680 Active 2023 Zully Moyer NP [address], [address], [place], [address], [facility] [email or web address] [facility] 4 12:52:28 Abdominal aortic aneurysm 781660883 Active 2023 Zully Moyer NP [address], [address], [place], [address], [facility] [email or web address] [facility] 4 12:53:01 Hypothyroidism 37731909 Active 2023 Zully Moyer NP [address], [address], [place], [address], [facility] 4 12:53:41 Tubo-ovarian mass 551635715 Active 2023 Zully Moyer NP [address], [address], [place], [address], [facility] 4 12:53:57 Acute kidney injury 04076042 Active 2023 Zully Moyer NP [address], [address], [place], [address], [facility] 4 12:54:06 Compression fracture Active 2023 Zully Moyer NP [address], [address], [place], [address], [facility] 4 12:55:00 Asthenia 38736655 Active 2023 Zully Moyer NP [address], [address], [place], [address], [facility] 4 13:04:28 Gastroesophage al reflux disease 822393519 Active 2023 Zully Moyer NP [address], [address], [place], [address], [facility] 4 13:11:38 Chronic pain 01716407 Active 2023 Zully Moyer NP [address], [address], [place], [address], [facility] 4 13:17:02 Coronary arterioscleros is 01961692 Active 2023 Zully Moyer NP [address], [address], [place], [address], [facility] 4 13:17:49 Constipation 99637504 Active 2023 Zully Moyer NP [address], [address], [place], [address], [facility] 4 13:18:47 Abnormal weight loss 658071335 Active 2023 Sanjuanita Diaz MD [address], [address], [place], [address], [facility] 4 15:54:21 Hypokalemia 94283910 Active 2023 Sanjuanita Diaz MD [address] [facility], [address], [place], [address], [facility] 4 16:06:58 Chronic kidney disease stage 3A 041456948 Active 2023 Sanjuanita Diaz MD [address] [facility], [address], [place], [address], [facility] 4 16:15:00 Anemia 114153173 Active 2023 LEONARD BROWNING NP [address] [facility], [address], [place], [address], [facility] 4 12:11:57 Problem Notes None recorded. Medical Equipment None Reported. Allergies Allergen ID Allergen Name Allergen Category Reaction Reaction Severity Criticality Documentation Date Start Date Code Code System Note Provider Name and Address Organization Details Recorded Time 16836 adhesive tape environme nt,medica tion other Not available unabletoasse 01/22/2024 05769 UNK Not Available Not Available Not Available 21949 codeine medicatio n other Not [facility] 01/22/2024 2670 RxNorm Not Available Not Available Not Available 89431 Iodinated contrast media (substanc e) medicatio n other Not available unabletoasse 01/22/2024 22854 2004 SNOMED Not Available Not Available Not Available 39613 iodine medicatio n other Not available unabletoasse 01/22/2024 5933 RxNorm Not Available Not Available Not Available 02050 oxycodone medicatio n other Not available unabletoasse 01/22/2024 7804 RxNorm Not Available Not Available Not Available 98926 papaya extract food,medi cation other Not available unabletoasse 01/22/2024 92527 12 RxNorm Not Available Not Available Not Available 83247 strawberr y allergeni c extract food other Not available unabletoasse 01/22/2024 38264 4 RxNorm Not Available Not Available Not Available 52761 procaine hydrochlo ride medicatio n other Not available unabletoasse ss 01/22/2024 02905 8 RxNorm Not Available Not Available Not Available 47445 acetamino phen / hydrocodo ne medicatio n nausea vomiting Not available Not available [facility] 01/22/2024 36264 2 RxNorm Not Available Not Available Not Available 00065 pineapple extract food other Not available [facility] 01/22/2024 49684 74 RxNorm Not Available Not Available Not [...] mm[Hg] 69 mm[Hg] LEONARD BROWNING NP [address] [facility], [address], [place], [address], [facility] 4 13:45:57 Date Recorded Body height Provider Name an d Address Organization Details Last Updated DateTime 06/27/2024 165.1 cm Natalia Olivo P [address] [facility], [facility] [address], [place], [address], [facility] 06/27/2024 13:36:22 Date Recorded Body height Body weight Body mass index (BMI) Heart rate Respiratory rate Body temperature Oxygen saturation Oxygen saturation in Arterial blood by Pulse oximetry Systolic blood pressure Diastolic blood pressure Provider Name and Address Organization Details Last Updated DateTime 5 165.1 cm 02611.5 3 g 19 kg/m2 60 /min 20 /min 97.4 [degF] 95 % 95 % 158 mm[Hg] 70 mm[Hg] Zully Moyer NP [address] [facility], [address], [place], [address], [facility] 5 12:20:51 Date Recorded Body height Body weight Heart rate Respiratory rate Body temperature Oxygen saturation Oxygen saturation in Arterial blood by Pulse oximetry Systolic blood pressure Diastolic blood pressure Provider Name and Address Organization Details Last Updated DateTime 5 165.1 cm 62837.5 3 g 60 /min 20 /min 97.4 [degF] 95 % 95 % 138 mm[Hg] 76 mm[Hg] Zully Moyer NP [address] [facility] [address], [place], [address], [facility] 5 15:24:14 Date Recorded Body height Body mass index (BMI) Body weight Heart rate Respiratory rate Body temperature Oxygen saturation Oxygen saturation in Arterial blood by Pulse oximetry Inhaled oxygen flow rate Systolic blood pressure Diastolic blood pressure Provider Name and Address Organization Details Last Updated DateTime 5 165.1 cm 19 kg/m2 34006.5 3 g 60 /min 10 /min 97.4 [degF] 97 % 97 % 3 L/min 118 mm[Hg] 84 mm[Hg] Zully Moyer NP [address], [address], [place], [address], [facility] 5 09:54:43 Social History Question Answer Notes LastModified by Organizat ion Details LastModified Time Tobacco Smoking Status Never Smoker Zully Moyer NP [address], [address], [place], [address], [facility] 01/22/2024 13:59:17 Do You Have An Advance Directive? Yes Information not available 01/25/2024 What Is Your Level Of Alcohol Consumption? None Information not available 01/22/2024 What Is Your Code Status? Full Code Information not available 01/22/2024 Where Do You Live? SingleLevelHouse Information not available 01/25/2024 Legal Guardian? No Informati on not available 01/25/2024 Do You Have A Medical Power Of [employer] Polisher Operator? Yes Information not available 01/25/2024 What Was [...] SNOMED-CT Code Diagnosis ICD10 Code Diagnosis Note [id number] Zully Moyer NP [address] [address] 01/22/2024 12:15:29 01/25/2024 15:27:41 Chronic obstructive pulmonary disease 57625173 J44.9 O2 2l at baseline, may titrate to maintain sat 92%montelu kast 10 mg po qhsduoneb q 4 hours prn sob/wheezi ngcoricidi n liquid 5 ml po prn q 4 hours coughmonit or resp status, vitals Atrial fibrillation 4943 6004 I48.91 eliquis 2.5 mg po bidsee htn meds belowmonit or hr and vitals Essential hypertension 39761394 I10 hydralazin e 25 mg po tidmetopro lol er 25 mg po dailyfuros emide 60 mg po dailypotas sium 20 meq po qdamlodipi ne 5 mg po bidmonitor Abdominal aortic aneurysm 108624047 I71.40 monitor Hypothyroidism 92608012 E03.9 levothyrox ine 50 mcg , , mon, mondayrech nora tsh shawna, then q 6 monthsmoni tor Tubo-ovarian mass 922473 009 N83.8 has adnexal mass, see hpiworkupe d up at [facility] and felt non urgentmoni tor Acute kidney injury 1466 9001 N17.9 avoid nephrotoxi c meds, see labs aboveon lasix15 bmp and cbc with diff, lipid profile, shawna then cbc and bmp weekly on mondays x3 Compression fracture 219 13112 T14.8XXD hx ofsee chronic pain meds Asthenia 52699657 R53.1 pt ot eval and treatmonit or Chronic pain 10800949 G8 9.29 gabapentin 300 mg po bidmuscle rub cream bid lower ext Gastroesop hageal reflux disease 331955693 K21.00 famotidine 20 mg po dailymonit or Coronary arteriosclerosis 56765819 I25.10 hx of MIaspirin 81 mg po qdmonitor Constipation 34289642 K5 9.00 chronicdoc usate 100 mg po dailymiral ax 17 grm po dailymonit or Recurrent falls 71979925 2 R29.6 recurrent falls with weaknessth erapy as toleratedm onitor [id number] LEONARD BROWNING NP [address] [place] [address] 01/24/2024 12:19:43 01/25/2024 16:10:57 Chronic obstructive pulmonary disease 81524049 J44.9 O2 2l at baseline, may titrate to maintain sat 92%montelu kast 10 mg po qhsduoneb q 4 hours prn sob/wheezi ngcoricidi n liquid 5 ml po prn q 4 hours coughmonit or resp status, vitals Atrial fibrillation 4943 6004 I48.91 eliquis 2.5 mg po bidsee htn meds belowmonit or hr and vitals Essential hypertension 00046756 I10 hydralazin e 25 mg po tidmetopro lol er 25 mg po dailyfuros emide 60 mg po dailypotas sium 20 meq po qdamlodipi ne 5 mg po bidmonitor Abdominal aortic aneurysm 027577826 I71.40 monitor Hypothyroidism 89570375 E03.9 levothyrox ine 50 mcg , , mon, good, 4.52monito r Tubo-ovarian mass 865370 009 N83.8 has adnexal mass, see hpiworkupe d up at [facility] and felt non urgentmoni tor Acute kidney injury 1466 9001 N17.9 avoid nephrotoxi c meds, see labs aboveon lasix7/15 bmp and cbc with diff, lipid profile, shawna then cbc and bmp weekly on mondays x3 Compression fracture 219 58300 T14.8XXD hx ofsee chronic pain meds Asthenia 79204857 R53.1 pt ot eval and treat prnspends a lot of time in bed.monito r Chronic pain 42687358 G8 9.29 gabapentin 300 mg po bidmuscle rub cream bid lower ext Gastroesop hageal reflux disease 762355974 K21.00 famotidine 20 mg po dailymonit or Coronary arteriosclerosis 38833524 I25.10 hx of MIaspirin 81 mg po qdmonitor Constipation 49176430 K5 9.00 chronicdoc usate 100 mg po dailymiral ax 17 grm po dailymonit or Recurrent falls 13249015 2 R29.6 recurrent falls with weaknessth erapy as toleratedm onitor Hypokalemia 94316029 E87 .6 K 3.1Current ly on lasix 60 mg qd and KCl 20 meq bidPlan -increase KCl to 20 meq tidBMP 01/28 Abnormal weight loss 267 944663 R63.4 155 lbs in October, now 115 [...] daily supplement and fortified foods.Bryanna tor closely. [id number] Sanjuanita Diaz MD [address] [address] 01/25/2024 14:20:13 01/30/2024 14:48:07 Hypokalemia 01331311 E87.6 Continue KCl 20 mg TID (increased yest due to K+3.1)Bryanna tor labs. Abnormal weight loss 267 598486 R63.4 40# wt loss since 09/2023.Trino montes de oca continues to say that she is not worried about it.She agrees to try mirtazapin e, will start 7.5 mg qhs.Contin ue house supplement qAM, mighty shake qPM, and prosource 30 ml qd.Monitor wts.Psych consult as above. 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 Atrial fibrillation 4943 6004 I48.0 Rate in good control on meds as above.Cont inue eliquis 2.5 mg BID for AC.Monitor HR and bleeding risk. Essential hypertension 37190402 I10 Mostly good recently, some borderline SBPs, but within range for permissive HTN.Contin ue hydralazin e 25 mg TID, metoprolol ER 25 mg qd, furosemide 60 mg qd, and amlodipine 5 mg BID.Contin ue KCl 20 mg TID to prevent hypokalemi a.BP goal for this elderly woman is permissive HTN, with SBP<150 and DBP<90Moni tor BP and labs. Abdominal aortic aneurysm 548264990 I71.40 Size still less than cutoff of 5.5 cm.Monitor yearly.F/U with vascular surgeon prn. Hypothyroidism 76561232 E03.8 TSH sl. high, but good FT4.Contin ue levothyrox ine 50 mcg //Mon/ Sun and 75 mcg //FMonit or TSH yearly. Tubo-ovarian mass 840984 009 N83.8 With 9 cm cystic mass on right ovary.Per WINDOWS APPLICATION ADMINISTRATOR no acute issue and doubt malignancy .Monitor for sxs.WINDOWS APPLICATION ADMINISTRATOR f/u prn. Compression fracture 219 56588 T14.8XXD As above. Asthenia 12805035 R53.1 Remains deconditio sadie.No longer getting rehab services.R estart prn.Contin ue fall precaution s.Monitor for safety.[facility] lear what buttermaker helper plan is. Chronic pain 88776138 G8 9.29 No c/o today.Cont inue gabapentin 300 mg BID and APAP 650 mg q 8 hrs prn.Use muscle rub cream to BLE BID and prn.Monito r sxs. Gastroesop hageal reflux disease 605045382 K21.00 No current sxs.Contin ue famotidine 20 mg qdMonitor GI sxs. Coronary arteriosclerosis 32564506 I25.10 No recent sxs.Contin ue meds as above and ASA 81 mg qd.Monitor for sxs. Constipation 17343496 K5 9.09 Continue bowel meds as ordered.Mo nitor bowel function. Impaired cognition 40505 6002 R41.89 BIMs was 14/15, but she is very vague about dates and medical problems.C ontinue supportive care.Monit or for need to invoke HCPMonitor mood and behaviors. Psych consulted Chronic ki dney disease stage 3A 198727450 N18.31 Stable since last hospitaliz ation.Cont inue to avoid nephrotoxi c meds as able.Monit or labs.Renal consult prn. [id number] [facility] [address] [place] [address] 02/01/2024 12:24:26 02/03/2024 10:21:17 Asthenia 09298173 R53.1 Remains deconditio sadie.No longer getting rehab services.R estart prn.Contin ue fall precaution s.Monitor for safety.[facility] lear what halfway plan is. 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 Abnormal weight loss 267 715605 R63.4 40# wt loss since 09/2023. now 114 lbsShe continues to say that she is not worried about it.01/24 started on mirtazapin e 7.5 mg qhs.Contin ue house supplement qAM, mighty shake qPM, and prosource 30 ml qd.Monitor wts.Psych consult as above. Essential hypertension 18042006 I10 borderline SBPs, but within range for [...] AC.Monitor HR and bleeding risk. Coronary arteriosclerosis 15415180 I25.10 No recent sxs.Contin ue meds as aboveASA 81 mg qd.Monitor for sxs. Hypokalemia 27895459 E87 .6 ContinueKC l 20 mg TID (increased yest due to K+3.1)Bryanna tor labs. Impaired cognition 89051 6002 R41.89 BIMs was 14/15 on admit, but she is very vague about dates and medical problems.c ongnition better with o2 complaince Continue supportive care.Monit or for need to invoke HCPMonitor mood and behaviors. Psych consultedw ill consider urine sample if cognition declines Abdominal aortic aneurysm 965085704 I71.40 Size still less than cutoff of 5.5 cm.Monitor yearly.F/U with vascular surgeon prn. Hypothyroidism 46017938 E03.8 TSH sl. high, but good FT4.Contin uelevothyr oxine 50 mcg //Mon/ Sun and 75 mcg //FMonit or TSH yearly. Tubo-ovarian mass 826326 009 N83.8 With 9 cm cystic mass on right ovary.Per WINDOWS APPLICATION ADMINISTRATOR no acute issue and doubt malignancy .Monitor for sxs.WINDOWS APPLICATION ADMINISTRATOR f/u prn. Chronic ki dney disease stage 3A 301871462 N18.31 Stable since last hospitaliz ation.Cont inue to avoid nephrotoxi c meds as able.Monit or labs.Renal consult prn. Chronic pain 35916477 G8 9.29 No c/o today.Cont inuegabape ntin 300 mg BIDAPAP 650 mg q 8 hrs prn.Use muscle rub cream to BLE BID and prn.Monito r sxs. Compression fracture 219 57822 T14.8XXD As above. Gastroesop hageal reflux disease 572512206 K21.00 No current sxs.Contin ue famotidine 20 mg qdMonitor GI sxs. Constipation 42363369 K5 9.09 Continue bowel meds as ordered.Mo nitor bowel function. [id number] LEONARD BROWNING NP [address] [address] 02/07/2024 11:54:33 02/08/2024 16:30:28 Impaired cognition 719920605 R41.89 BIMs was 14/15 on admit, but she is very vague about dates and medical problems.c ongnition better with o2 complaince Continue supportive care.Monit or for need to invoke HCPMonitor mood and behaviors. Psych consulted, no new recs other than remeronwil l consider urine sample if cognition declines Abnormal weight loss 267 130061 R63.4 40# wt loss since 09/2023. now 114 lbsShe continues to say that she is not worried about it.On 01/24 started on mirtazapin e 7.5 mg qhs.Dietic rajiv following - continue house supplement qAM, mighty shake qPM, and prosource 30 ml qd.Continu e to monitor wts.Seen by Psych, agree with wilfredo. 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 Asthenia 08223754 R53.1 Remains deconditio sadie.No longer getting rehab services.S pends most of time in bed, declines to get upContinue fall precaution s.Monitor for safety.[facility] lear what halfway plan is. Essential hypertension 00922784 I10 borderline SBPs, but within range for [...] AC.Monitor HR and bleeding risk. Coronary arteriosclerosis 85269862 I25.10 No recent sxs.Contin ue meds as aboveASA 81 mg qd.Monitor for sxs. Hypokalemia 18657179 E87 .6 K this week 3.9Continu e KCl 20 mg TIDMonitor labs. Abdominal aortic aneurysm 385813494 I71.40 Size still less than cutoff of 5.5 cm.Monitor yearly.F/U with vascular surgeon prn. Hypothyroidism 11484322 E03.8 TSH sl. high, but good FT4.Contin uelevothyr oxine 50 mcg //Sat/ Sun and 75 mcg /W/FMonit or TSH yearly and prn Tubo-ovarian mass 316540 009 N83.8 With 9 cm cystic mass on right ovary.Per WINDOWS APPLICATION ADMINISTRATOR no acute issue and doubt malignancy .Monitor for sxs.WINDOWS APPLICATION ADMINISTRATOR f/u prn. Chronic ki dney disease stage 3A 992794944 N18.31 Stable since last hospitaliz ation.Cont inue to avoid nephrotoxi c meds as able.Monit or labs.Renal consult prn. Chronic pain 52537692 G8 9.29 No c/o today.Cont inuegabape ntin 300 mg BIDAPAP 650 mg q 8 hrs prn.Use muscle rub cream to BLE BID and prn.Monito r sxs. Compression fracture 219 78147 T14.8XXD As above. Gastroesop hageal reflux disease 152373578 K21.00 No current sxs.Contin ue famotidine 20 mg bidMonitor GI sxs. Constipation 71843864 K5 9.09 Continue bowel meds as ordered.Mo nitor bowel function. Anemia 090077675 D64.9 Hgb 11 -> 9.1Normocy tic. On eliquisOn pepcid bidHx. CKD Plan -Hemetest stools x 3CBC x 1 monday along with Fe profile and B12, folateCont inue pepcidTo ER if acute, full code. [id number] Zully Moyer NP [address] [address] 02/09/2024 13:37:09 02/13/2024 09:43:07 Anemia 412842179 D64.9 Hgb 11 -> 9.1conteli quispepcid bidHx. CKDHemetes t stools x 3CBC x 1 monday along with Fe profile and B12, folatepepc idTo ER if acute, full code. Abnormal weight loss 267 526779 R63.4 40# wt loss since 09/2023. now [...] to monitor wts.Seen by Psych, agree with lauraeronatalia. Impaired cognition 66814 6002 R41.89 BIMs was 14/15 on admit, but she is very vague about dates and medical problems.c ongnition better with o2 compliance Continue supportive care.Monit or for need to invoke HCPMonitor mood and behaviors. 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 Asthenia 30130900 R53.1 Remains deconditio sadie.No longer getting rehab services.S pends most of time in bed, declines to get upContinue fall precaution s.Monitor for safety.[facility] lear what halfway plan is. Essential hypertension 18886029 I10 borderline SBPs, but within range for [...] AC.Monitor HR and bleeding risk. Coronary arteriosclerosis 43852954 I25.10 No recent sxs.Contin ue meds as aboveASA 81 mg qd.Monitor for sxs. Hypokalemia 66324858 E87 .6 K this week 3.9Continu e KCl 20 mg TIDMonitor labs. Abdominal aortic aneurysm 002427000 I71.40 Size still less than cutoff of 5.5 cm.Monitor yearly.F/U with vascular surgeon prn. Hypothyroidism 63523028 E03.8 TSH sl. high, but good FT4.Contin uelevothyr oxine 50 mcg //Sat/ Sun and 75 mcg //FMonit or TSH yearly and prn Tubo-ovarian mass 711392 009 N83.8 With 9 cm cystic mass on right ovary.Per WINDOWS APPLICATION ADMINISTRATOR no acute issue and doubt malignancy .Monitor for sxs.WINDOWS APPLICATION ADMINISTRATOR f/u prn. Chronic ki dney disease stage 3A 156789888 N18.31 Stable since last hospitaliz ation.Cont inue to avoid nephrotoxi c meds as able.Monit or labs.Renal consult prn. Chronic pain 63507423 G8 9.29 No c/o today.Cont inuegabape ntin 300 mg BIDAPAP 650 mg q 8 hrs prn.Use muscle rub cream to BLE BID and prn.Monito r sxs. Compression fracture 219 64013 T14.8XXD As above. Gastroesop hageal reflux disease 076052612 K21.00 No current sxs.Contin uefamotidi ne 20 mg bidMonitor GI sxs. Constipation 21439324 K5 9.09 Continue bowel meds as ordered.Mo nitor bowel function. Abdominal pain 66353386 R10.9 upset stomach pain now resolving with zofran and pepcidvita ls stable and feeling better, she will cont with meds above(note hx of AAA and if acute abd pain persists will consider acute workup)zof ran 4 mg po q 6 hours prnbmp and cbc on monday [id number] LEONARD BROWNING NP [address] [address] 02/14/2024 11:53:07 02/20/2024 14:29:51 Abdominal pain 09086158 R10.9 No recent complaints Continue pepcid and prn zofranMoni tor Anemia 621545798 D64.9 Hgb 11 -> 9.1 -> 9.4No reports of active bleed or heme pos. stools.con tinue pepcid bidremains on eliquis and ASAHx. CKDHemetes t stools x 3 requested, not done yet, monitor for active bleed.Fe level low - add FeSO4 325 mg and Vit C 500 mg qdCBC q month x 3 to trend Abnormal weight loss 267 509686 R63.4 40# wt loss since 09/2023.Rem seven 7.5 mg qd added 01/24.Irameugene josephn following, remains on supplement s.Weight up 2 lbs - continue to monitor.no w 116.9 since starting mirtazapin e and that is 2.9 lbs up in a week.Sahil nue to monitor closely Impaired cognition 22388 6002 R41.89 BIMs was 14/15 on admit, but she is very vague about dates and medical problems.c ongnition better with o2 compliance Continue supportive care.Monit or for need to invoke HCPMonitor mood and behaviors. 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 Asthenia 55825206 R53.1 Remains deconditio sadie.No longer getting rehab services.S pends most of time in bed, but this has been improvingC ontinue fall precaution s.Monitor for safety.[facility] lear what buttermaker helper plan is. Essential hypertension 83124088 I10 borderline SBPs, but within range for [...] AC.Monitor HR and bleeding risk. Coronary arteriosclerosis 76492778 I25.10 No recent sxs.Contin ue meds as aboveASA 81 mg qd.Monitor for sxs. Hypokalemia 67332213 E87 .6 K this week 3.9Continu e KCl 20 mg TIDMonitor labs. Abdominal aortic aneurysm 811707046 I71.40 Size still less than cutoff of 5.5 cm.Monitor yearly.F/U with vascular surgeon prn. Hypothyroidism 42244170 E03.8 TSH sl. high, but good FT4.Contin uelevothyr oxine 50 mcg //Sat/ Sun and 75 mcg //FMonit or TSH yearly and prn Tubo-ovarian mass 694126 009 N83.8 With 9 cm cystic mass on right ovary.Per WINDOWS APPLICATION ADMINISTRATOR no acute issue and doubt malignancy .Monitor for sxs.WINDOWS APPLICATION ADMINISTRATOR f/u prn. Chronic ki dney disease stage 3A 622698068 N18.31 Stable since last hospitaliz ation.Cont inue to avoid nephrotoxi c meds as able.Monit or labs.Renal consult prn. Chronic pain 22638212 G8 9.29 No c/o today.Cont inuegabape ntin 300 mg BIDAPAP 650 mg q 8 hrs prn.Use muscle rub cream to BLE BID and prn.Monito r sxs. Compression fracture 219 85156 T14.8XXD As above. Gastroesop hageal reflux disease 791579400 K21.00 No current sxs.Contin uefamotidi ne 20 mg bidMonitor GI sxs. Constipation 34806709 K5 9.09 Continue bowel meds as ordered.Mo nitor bowel function. [id number] Zully Moyer NP [address] [address] 02/26/2024 13:19:39 03/01/2024 15:49:31 Impaired cognition 560618357 R41.89 BIMs was 14/15 on admit, but she is very vague about dates and medical problems.c ongnition better with o2 compliance Continue supportive care.Monit or for need to invoke HCPMonitor mood and behaviors. Psych consulted, no new recs other than remeronwil l consider urine sample if cognition declines Chronic ob structive pulmonary disease 98572840 J43.8 At baseline., nsg states cough and [...] not avail)Bryanna tor resp status. Chronic pain 92811322 G8 9.29 No c/o today.Cont inuegabape ntin 300 mg BIDAPAP 650 mg q 8 hrs prn.Use muscle rub cream to BLE BID and prn.02/25 start diclofenac gel 1% topically to knees dailyMonit or sxs. [id number] Zully Moyer NP [facility] [address] [address] 02/29/2024 15:56:47 03/04/2024 10:03:33 Hypokalemia 35612875 E87.6 K this week 3. dc KCl 20 mg TID, which she has been taking regularly start kcl 40 meq po bidMonitor labs bmp and cbc on monday [id number] LEONARD BROWNING NP [facility] [address] [address] 03/05/2024 11:33:19 03/06/2024 15:57:17 Hypoxemia 400829745 R09.02 O2 sat 73% on RA today, lethargic, refusing po, meds.O2 applied, keeping sats in the 90s on 2L.Initial ly pt. wanted to stay at SNF and change her code status accordingl y.HCP updated of condition and came in to visit, pt. decided to keep full code status thus sending to ER for more thorough evaluation . Abnormal weight loss 267 360968 R63.4 40# wt loss since 09/2023.Con tinues to lose weight, currently 114 lbs.Remero n 7.5 mg qd added 01/24.Olimpia rivera following, remains on supplement s. [id number] LEONARD BROWNING NP [facility] [address] [address] 03/12/2024 13:27:10 03/13/2024 11:52:31 Abnormal weight loss 983409733 R63.4 40# wt loss since 09/2023.Con tinues to lose weight, currently 114 lbs.Remero n 7.5 mg qd added 01/24, continueDi etician following, remains on supplement s. Urinary tr act infectious disease 27403811 N39.0 Klebsiella , treated with meropenem the levaquin at [facility].Tx. completed with levaquin 500 mg x 1 dose on 03/11.Mainta in fluidsMoni tor VS, sx. Metabolic encephalopathy 56615778 G93.[address] [facility] with altered MS, treated for UTI and PNA with improvemen t in status.See below.Bryanna tor. Pneumonia 572870271 J18. 9 Reported as right sided at [facility].As above, treated with meropenem, then levaquin.M onitor VS, sats, LS, labs for changesRef er to FIBER TECHNICIAN, due to concern of possible aspiration due to right sided presentati on.Continu e O2, chronic use. [id number] LEONARD BROWNING, KEILA [facility] [address] [address] 03/19/2024 08:23:25 03/20/2024 13:59:36 Metabolic encephalopathy 08286049 G93.41 ResolvedRe cent stay at [facility] with altered MS, treated for UTI and PNAMonitor mental status Urinary tr act infectious disease 65734787 N39.0 Resolved, no urinary sxsVSSLabs stable.Kle bsiella, treated with meropenem then levaquin at [facility].Comple marcelo Abx 03/11.Mainta in fluidsMoni tor VS, sx. Pneumonia 762603714 J18. 9 Treated as inptAs above, treated with meropenem, then levaquin.M onitor VS, sats, LS, labs for changesFol low up with FIBER TECHNICIAN as planned- suspicion of possible aspiration due to right sided PNA.Contin ue O2, chronic use.Monito r for sxs Abnormal weight loss 267 002897 R63.4 44# wt loss since 09/2023.Con tinues to lose weight, currently 112.5 lbs.Remero n 7.5 mg qd added 01/24- will increase to 15mgDietic rajiv following, continue with supplement s. [id number] Zully Moyer NP [facility] [address] [address] 04/11/2024 12:49:36 04/12/2024 10:14:46 Abnormal weight loss 022416377 R63.4 44# wt loss since 09/2023.Con tinues to lose weight, currently 112.5 lbs.contRe el 15mg po qhs, recently increasedD ietician following, continue with supplement s. Acute uppe r respiratory infection 71882628 J06.9 pt with nausea, chills, aches, and congestion todayshe was given tylenol with some fyvqrh65/3 startrobit ussin 10 ml po q 6 hours prn coughzofra n 4 mg po q 6 hours prnpush po fluids as toleratedb mp and cbc with diff tomcovid test neg, with covid in facilitysh e recently had pna and will get cxr to rule out reoccuranc e0-4 liters to keep o2 sat >92% on 3liters baselinemo nitor and encourage light diet [id number] Zully Moyer NP [facility] [address] [address] 04/15/2024 15:33:07 04/16/2024 09:29:22 Acute COVID-19 1208039730 U07.1 pt with nausea, chills, aches, fatigue [...] 3liters baselinemo nitor and encourage light diet [id number] Zully Moyer NP [facility] [address] [address] 04/18/2024 11:20:20 04/22/2024 08:46:23 Acute COVID-19 1602244217 U07.1 pt with nausea, chills, aches, fatigue and congestion for a few days covid positive on 04/15 04/15 due to ckd and gfr 46 on eliquis will start on molnupirav ir 800mg po bid x 5daysisola tion precaution s airbornesu pportive care 04/18art prednisone 40 mg po daily x 5 [...] light diet Chronic ob structive pulmonary disease 81542281 J43.8 At baseline., nsg states cough and [...] ussin (coricidin not avail)Bryanna tor resp status. [id number] LEONARD BROWNING NP [address] [address] 04/23/2024 13:42:19 04/24/2024 12:26:36 Acute COVID-19 4929098713 U07.1 Nausea, chills, aches, fatigue and congestion [...] if worsens. Chronic ob structive pulmonary disease 05134527 J43.8 At baseline., nsg states cough and [...] tor resp status. Abnormal weight loss 267 592745 R63.4 Over 40 lb. wt. loss since September.Betsy paulina added 01/24, dose increased / to 15 mg. qhs.Weight s starting to stabilize around 115 lbs.Dietic rajiv following, continue with supplement s.Monitor Atrial fibrillation 4943 6004 I48.0 Continueel iquis 2.5 mg BID for AC.metopro lol ER 25 mg qd for rate control.Mo nitor HR and bleeding risk. Chronic ki dney disease stage 3A 558641555 N18.31 Stable since last hospitaliz ation.Cont inue to avoid nephrotoxi c meds as able.Monit or labs.Renal consult prn. Essential hypertension 28703308 I10 borderline SBPs, but within range for permissive HTN.Contin uehydralaz ine 25 mg TIDmetopro lol ER 25 mg qdfurosemi de 60 mg qdamlodipi ne 5 mg BID.KCl 20 mg TID to prevent hypokalemi a.BP goal for this elderly woman is permissive HTN, with SBP<150 and DBP<90Moni tor BP and labs. Coronary arteriosclerosis 11791311 I25.10 No recent sxs.Contin ue meds as aboveASA 81 mg qd.Monitor for sxs. Hypothyroidism 80662369 E03.8 TSH sl. high, but good FT4.Contin uelevothyr oxine 50 mcg //Sat/ Sun and 75 mcg //FMonit or TSH yearly and prn Anemia 148588169 D64.9 Hgb 11 -> 9.1 -> 9.4 ->10.5No reports of active bleed or heme pos. stools.con tinue pepcid bidremains on eliquis and ASAHx. CKDFe level low - added FeSO4 325 mg and Vit C 500 mg qdCBC q month x 3 to trend Gastroesop hageal reflux disease 528228729 K21.00 No current sxs.Contin uefamotidi ne 20 mg bidMonitor GI sxs. [id number] Zully Moyer NP [address] [place] [address] 04/25/2024 14:45:39 04/29/2024 09:34:31 Acute COVID-19 1027415045 U07.1 recovered with moderate course with Nausea, [...] if worsens. Chronic ob structive pulmonary disease 33090319 J43.8 At baseline., nsg states cough and [...] tor resp status. Abnormal weight loss 267 780786 R63.4 Over 40 lb. wt. loss since September.Betsy paulina 15 mg. qhs.Weight s starting to stabilize around 115 lbs. last wgt ? inaccurate (will request another wgt)Dietic rajiv following, continue with supplement s.Monitor Atrial fibrillation 4940 8980 I48.0 Continueel iquis 2.5 mg BID for AC.metopro lol ER 25 mg qd for rate control.Mo nitor HR and bleeding risk. Chronic ki dney disease stage 3A 094707569 N18.31 Stable since last hospitaliz ation.avoi d nephrotoxi c meds as able.Monit or labs.Renal consult prn. Essential hypertension 67922125 I10 borderline SBPs, but within range for permissive HTN.Contin uehydralaz ine 25 mg TIDmetopro lol ER 25 mg qdfurosemi de 60 mg qdamlodipi ne 5 mg BID.KCl 20 mg TID to prevent hypokalemi a.BP goal for this elderly woman is permissive HTN, with SBP<150 and DBP<90Moni tor BP and labs. Coronary arteriosclerosis 17669560 I25.10 No recent sxs.Contin ue meds as aboveASA 81 mg qd.Monitor for sxs. Hypothyroidism 21228977 E03.8 TSH sl. high, but good FT4.Contin uelevothyr oxine 50 mcg //Sat/ Sun and 75 mcg //FMonit or TSH yearly and prn Anemia 397334894 D64.9 stable as above latelyNo reports of active bleed or heme pos. stools.con tinue pepcid bidremains on eliquis and ASAHx. CKDcontFeS O4 325 mg and Vit C 500 mg qdCBC q month x 3 to trend Gastroesop hageal reflux disease 587049675 K21.00 No current sxs.Contin uefamotidi ne 20 mg bidMonitor GI sxs. 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 contsupple mental O2 by HI, titrate to maintain sats 88-92% (seems 3liters baseline)m ontelukast 10 mg qhsduoneb q 6 hrs prn sob/wheezi ng and sched bidrobitus sin (coricidin not avail)Bryanna tor resp status. Acute COVID-19 815854077 8 U07.1 remains improved and recovered with [...] ER if worsens. Abnormal weight loss 267 622477 R63.4 Over 40 lb. wt. loss since [...] control.Mo nitor HR and bleeding risk. Constipation 23341003 K5 9.09 Continue bowel meds:ajit ax daily05/06 startincre ase colace 100 mg po to twice a daymom 30cc mmvlpp4zox na 1 tab po dailyMonit or bowel function. [id number] Zully Moyer NP [facility] [address] [address] 05/20/2024 16:51:54 05/22/2024 10:02:12 Pain of toe of right foot 5468981833 78754 M79.674 pt stumbed her right great toe and 2nd digit now resolving without obvious s/s of injury.may skin prep 1st and 2nd distal toes for bogginess aswell as right heel which is already being done bidmonitor [id number] LEONARD BROWNING NP [facility] [address] [address] 06/20/2024 13:45:08 06/21/2024 14:27:49 Acute COVID-19 7515002652 U07.1 Now resolvedTe sted covid positive on omple marcelo molnupirav ir 800mg po bid x 5days, prednisone burst, and duonebs.Sandip yadav, covid currently in facility again, blanket testing on unit qod, results neg. so far. 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 continue:s upplementa l O2 by NC, titrate to maintain sats 88-92% (seems 3liters baseline)m ontelukast 10 mg qhsduoneb bid and q 6 hrs prnrobitus sin prnMonitor resp status. Abnormal weight loss 267 714212 R63.4 Over 40 lb. wt. loss since September.Betsyfalguni gallardo added 01/24, dose increased 04/10 to 15 mg. qhs.Weight s stabilizin g - currently 116 lbs.Dietic rajiv following, continue with supplement s.Monitor Atrial fibrillation 4943 6004 I48.0 Continueel iquis 2.5 mg BID for AC.metopro lol ER 25 mg qd for rate control.Sandip yadav HR and bleeding risk. Chronic ki dney disease stage 3A 093865018 N18.31 Stable since last hospitaliz ation.Cont inue to avoid nephrotoxi c meds as able.Monit or labs.Renal consult prn. Essential hypertension 94847741 I10 borderline SBPs, but within range for permissive HTN.Contin uehydralaz ine 25 mg TIDmetopro lol ER 25 mg qdfurosemi de 60 mg qdamlodipi ne 5 mg BID.KCl 20 mg TID to prevent hypokalemi a.BP goal for this elderly woman is permissive HTN, with SBP<150 and DBP<90Moni tor BP and labs. Coronary arteriosclerosis 85142367 I25.10 No recent sxs.Contin ue meds as aboveASA 81 mg qd.Monitor for sxs. Hypothyroidism 57942829 E03.8 02/29/24 TSH = 2.19Contin uelevothyr oxine 50 mcg //Sat/ Sun and 75 mcg //FMonit or TSH yearly and prn Anemia 074153109 D64.9 Hgb 11 -> 9.1 -> 9.4 [...] check x 1 Gastroesop hageal reflux disease 253485520 K21.00 No current sxs.Contin uefamotidi ne 20 mg bidMonitor GI sxs. [id number] Zully Moyer NP [facility] [address] [address] 06/27/2024 13:13:52 06/28/2024 12:58:16 Chronic kidney disease stage 3A 173850681 N18.31 Stable since last hospitaliz ation.Cont inue to avoid nephrotoxi c meds as able.Monit or labs.Renal consult prn. Essential hypertension 72100779 I10 borderline SBPs, but within range for permissive HTN.Contin uehydralaz ine 25 mg TIDmetopro lol ER 25 mg qdfurosemi de 60 mg qdamlodipi ne 5 mg BID.KCl 20 mg TID to prevent hypokalemi a.BP goal for this elderly woman is permissive HTN, with SBP<150 and DBP<90Moni tor BP and labs.06/27 labs bmp and cbc on 06/28 Edema of l ower extremity 257167362 R60.0 pt with increased lower ext edema now appearing increased from baselinele ft is 1+ edema, however right is 3+edema and tender, without any trauma or bruising.D DX will ro dependent edema/dvt/ CHF icsfxnu25/ 19start U/S right foot/lower ext ro dtadd lasix 20 mg po daily x 3 daysstart danish wrap to right lower ext for increased swelling, often noncomplia nt with tedselevat e leg as tolmonitor closelycou ld be related to possible underlying 06/27 labs bmp and cbc on 06/28 [id number] Zully Moyer NP [facility] [address] [address] 08/05/2024 12:19:52 08/06/2024 15:15:10 Chronic kidney disease stage 3A 329721496 N18.31 Stable since last hospitaliz ation.Cont inue to avoid nephrotoxi c meds as able.Monit or labs.Renal consult prn. Essential hypertension 08936386 I10 borderline SBPs, but within range for permissive HTN.Contin uehydralaz ine 25 mg TIDmetopro lol ER 25 mg qdfurosemi de 80 mg qdamlodipi ne 5 mg BID.cont KCl 40 meq po qd to prevent hypokalemi a.(was on higher dose)BP goal for this elderly woman is permissive HTN, with SBP<150 and DBP<90Moni tor BP and labs on wednesdays Infection caused by Norovirus 409133145 A08.11 pt had norovoviru s now resolved in hospital treated with fluids etc...ileu s resolvedse e hpisupport geri carerestad v diet as toleratedm onitor need to start fluids Urinary tr act infectious disease 15789573 N39.0 tx with abxto complete levaquin 750 mg po q 48 hrs with probioticm onitor for decrease in wbc and resolution Pressure i njury of toe of left foot stage I [id number] 79067 L89.891 skin prep to right hallux daily for 10 daysbandai d over toenail which is catching on her sockmonito r Chronic ob structive pulmonary disease 88981689 J43.8 Severe copd on home 02 2-3 liters at baselinewi th possible chf component received ivf in hosp and now has crackles to right base08/05la six to 80 mg po qd for increased sob and on 40 mg po potassium qdpredniso ne 40 mg po qd x 5daysduone b q 6 hrs qid and prn sob/wheezi ng and sched bidcontsup plemental O2 by HI, titrate to maintain sats 88-92% (seems 3liters baseline)m ontelukast 10 mg qhsrobitus sin (coricidin not avail)Bryanna tor resp status.cbc , bmp and bnp weekly x 3 on wednesdays [id number] Zully Moyer NP [facility] [address] 08/07/2024 15:23:34 08/09/2024 09:59:52 Chronic obstructive pulmonary disease 99640955 J43.8 Severe copd on home 02 2-3 liters at baselinewi th possible chf component received ivf in hosp and now has crackles to right base08/07 increase potassium to 40 mg po bidcontlas ix to 80 mg po qd for increased sob, recently increasedp rednisone 40 mg po qd x 5days totalduone b q 6 hrs qid and prn sob/wheezi ng and sched bidsupplem ental O2 by NC, titrate to maintain sats 88-92% (seems 3liters baseline)m ontelukast 10 mg qhsrobitus sin (coricidin not avail)Bryanna tor resp status.cbc , bmp and bnp weekly x 3 on wednesdays Urinary tr act infectious disease 97768090 N39.0 tx with abxto complete levaquin 750 mg po q 48 hrs with probioticm onitor for decrease in wbc and resolution Chronic ki dney disease stage 3A 790976953 N18.31 Stable since last hospitaliz ation.Cont inue to avoid nephrotoxi c meds as able.Monit or labs.Renal consult prn. Essential hypertension 87652545 I10 borderline SBPs, but within range for permissive HTN.Contin uehydralaz ine 25 mg TIDmetopro lol ER 25 mg qdfurosemi de 80 mg qd08/07 start lisinopril 10 mg po qd08/07 dc amlodipine 5 mg BID.08/07 increase potassium to 40 mg po bidBP goal for this elderly woman is permissive HTN, with SBP<150 and DBP<90Moni tor BP and labs on wednesdays Impacted c erumen in right ear 8475132645 758033 H61.21 debrox 4gtts to right ear tid x 5 days and flush day 6audiology consultmon itor [id number] Zully Moyer NP [address] [place] [address] 08/08/2024 09:54:02 08/09/2024 12:12:39 Essential hypertension 22706640 I10 borderline SBPs, but within range for permissive HTN.Contin uehydralaz ine 25 mg TIDmetopro lol ER 25 mg qdfurosemi de 80 mg qd08/07 start lisinopril 10 mg po qd08/07 dc amlodipine 5 mg BID.08/07 increase potassium to 40 mg po bidBP goal for this elderly woman is permissive HTN, with SBP<150 and DBP<901/30 cont above with bp 159/75 slightly todayMonit or BP and labs on wednesdays Chronic ob structive pulmonary disease 91580402 J43.8 Severe copd on home 02 2-3 liters at baselinewi th possible chf component received ivf in hosp and now has crackles to right base08/07 increase potassium to 40 mg po bidcontlas ix 80 mg po qd for increased sob, recently increasedp rednisone 40 mg po qd x 5days totalduone b q 6 hrs qid and prn sob/wheezi ng and sched bidsupplem ental O2 by HI, titrate to maintain sats 88-92% (seems 3liters baseline)m ontelukast 10 mg qhsrobitus sin (coricidin not avail)Bryanna tor resp status.cbc , bmp and bnp weekly x 3 on wednesdays cont plan above Urinary tr act infectious disease 43392010 N39.0 tx with abxto complete levaquin 750 mg po q 48 hrs with probioticm onitor for decrease in wbc and resolution Health Concerns Section Related Observation LastModified by Organization Detai ls LastModified Time None Recorded Concern Status LastModified by Organization Details LastModified Time None Recorded Advance Directives Directive Y: Payers Encounter Date Sequence Insurance Name Policy Number Policy [place] Covered Member ID [place] Member ID Guarantor Name 06/20/2024 2 [place] [facility] Vane Almazanemer [id number] Vane [place] 06/20/2024 1 [place] [employer] Vane B [place] [id number] Vane [place] 06/27/2024 2 [place] [facility] Vane Rtia [id number] Vane Rita 06/27/2024 1 [place] [employer] Vane B [place] [id number] Vane [place] 08/05/2024 2 [place] [facility] Vane Rita [id number] Vane [place] 08/05/2024 1 [place] [employer] Vane B [place] [id number] Vane Rita 08/07/2024 2 [place] [facility] Vane Tylerr [id number] Vane [place] 08/07/2024 1 [place] [facility] Vane Almazanemer [id number] Vane [place] 08/08/2024 2 [place] [facility] Vane Tylerr [id number] Vane [place] 08/08/2024 1 [place] [facility] Vane Almazanemer [id number] Vane [place] Notes Date Note Type Note Provider Name and Address Organization Details Recorded Time 06/20/2024 text/html Vane is seen tod ay for a routine visit. She is an [...] on Eliquis, CAD with ? 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 PMH: HTN, COPD on home O2, PAfib now on Eliquis, CAD with ? 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 and most likely [...] today, Vane is motoring in wheelchair in [facility]. She complains of her right foot/leg pain and swelling. She is noncompliant with compression stockings.Her right foot/calf does not have overt warmth, maceration, or drainage. She has stock indentions and refuses to have her sock cut today. MOLST: full code Zully Moyer, KEILA [address] [facility], [address], [place], [address], [facility] [employer] 06/27/2024 14:35:46 08/05/2024 text/html Vane is seen tod ay for a readmission visit. PMH: HTN, COPD on home O2, PAfib now on Eliquis, CAD with ? 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 Vane is a 89 yo was seen at [facility] for nausea, vomiting, diarrhea, hypertension dx with a UTI, small bowel ileus with probable enteritis, and norovirus. Workup:UA positive for infection.Labs remarkable for wbc o f14.7.CT abd/pelvis shows small bowel ileus with probable enteritits without obstruction or ascites, as well as diffuse urinary bladder wall thickening suggestive of cystitis.EKG: SR with PVC's and PACsShe was treated with zofran, hydralazine, metoclopramide, losartan, IVF, ceftriaxone, and metronazole.While in the hospital her BP was elevated and she wasIncidentally she co R knee pain and xray negative for acute findings and started on aspercreme. She was sent back with levofloxacin 750 mg po q 48 hours for 4 doses, immodium prn , and aspercreme started. Note: there are different dc lists in the summaries from the hospital.Note: she was sent with a script for oxycodone. Will not continue as she is allergic to this med. On exam, Vane states her breathing is worse with too much junk in her lungs . She has some RLL crackles on exam and remains on 3liters o2 saturating 95%, which is her baseline. No edema noted to lower extremities. Also states her right great toe is bothering her. She denies any other symptoms. MOLST: full code Zully Moyer NP [address] [facility], [address], [place], [address], [facility] [employer] 08/05/2024 16:26:10 08/07/2024 text/html Vane is seen tod ay for an acute rounding visit. PMH: HTN, COPD on home O2, PAfib now on Eliquis, CAD with ? 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 She is seen in follow up to her norovirus, UTI, and pharmacy consult recently. Pharmacy noted she is on amlodipine and lasix and suggests starting an danish or arb with her recent leg swelling. Will agree and start lisinopril 10 mg po qd instead of amlodipine. Her only complaint is her ears are blocked and can't hear. She states she does not have any hearing aides. She is noted to have approx 40 % wax to right ear with some old blood. Left ear is wax free. Since back she is doing much better and now hydrated and motoring in a wheelchair. On exam, She denies any vomiting, nausea, or diarrhea. She reports her breathing is baseline and appears to be non labored on 3liters o2 at baseline at 95 %. No leg swelling noted today. No s/s of UTI or complaints of urinary symptoms. MOLST: full code Zully Moyer NP [address] [facility], [address], [place], [address], [facility] [employer] 08/07/2024 15:46:12 08/08/2024 text/html Vane is seen tod jimi for an acute rounding visit. PMH: HTN, COPD on home O2, PAfib now on Eliquis, CAD with ? 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 She is seen for shortness of breath today. Of note: she was recently treated for UTI, norovirus, and copd exacerbation. remains on prednisone and updrafts for shortness of breath. On exam, She states she woke up with difficulty breathing. She remains on 02 3 liters at baseline for her copd. Her rr 20, o2 sat 97% on 3 liters this am, and she remains diminished at baseline. She is speaking in full sentences. She felt much better after nursing gave a duoneb this am and rr 20 and 93% on 3 liters. Overall, appears to be back to baseline post treatment. MOLST: full code Zully Moyer, KEILA [address] [facility], [address], [place], [address], [facility] [employer] 08/08/2024 16:36:15 OBGyn Episode No OBEpisode recorded.
--- OUTSIDE RECORDS SUMMARY | 2024-08-12 23:31 | XMS_ITS | Encounter Summary ---
Author Organization [facility] Address [address] [place] [address] Care Team Providers Care Personal Financial Planner Name Role Phone Niels Israel MD Primary Care Provider [phone] Encounter Details Date Type Department Care Team (Late st Contact Info) Description 08/06/2024 Lab Requisition [facility] - Main Lab [address] [place] [address] Niels Israel MD [address] [place] [address] [address] [place], [address] Chronic obstructive pulmonary disease, unspecified (CMS/HCC) Social History Tobacco Use Types Packs/Day Years Used Date Smoking Tobacco: Never Assessed Sex and Gender Information Value Date Recorded Sex Assigned at Not on file Gender Identity Not on file Sexual Orientation Not on file documented as of this encounter Plan of Treatment Not on file documented as of this encounter Procedures Procedure Name Priority Date/Time Associated Diagnosis Comments COMPLETE BLOOD COUNT Routine 08/07/2024 7:10 AM EST Chronic obstructive pulmonary disease, unspecified (CMS/HCC) BASIC METABOLIC PANEL Routine 08/07/2024 7:10 AM EST Chronic obstructive pulmonary disease, unspecified (CMS/HCC) documented in this encounter Results * (ABNORMAL) Complete blood count (08/07/2024 7:10 AM EST) WBC 6.0 4.8 - 10.8 [facility] LAB HEMETOLOGY METHOD 08/07/2024 12:20 PM EST [facility] RBC 3.90 3.80 - 4.80 M/[facility] LAB HEMETOLOGY METHOD 08/07/2024 12:20 PM EST [facility] Hemoglobin 11.7 11.5 - 16.0 g/dL LAB HEMETOLOGY METHOD 08/07/2024 12:20 PM EST [facility] Hematocrit 36.4 35.0 - 47.0 % LAB HEMETOLOGY METHOD 08/07/2024 12:20 PM [facility] MCV 93.6 79.0 - 98.0 FL LAB HEMETOLOGY METHOD 08/07/2024 12:20 PM [facility] LAB MCH 30.1 27.0 - 32.0 pcg LAB HEMETOLOGY METHOD 08/07/2024 12:20 PM [facility] MCHC 32.1 32.0 - 37.0 g/dL LAB HEMETOLOGY METHOD 08/07/2024 12:20 PM [facility] RDW 13.0 11.0 - 15.0 % LAB HEMETOLOGY METHOD 08/07/2024 12:20 PM [facility] Platelets 219 130 - 400 K/mcL LAB HEMETOLOGY METHOD 08/07/2024 12:20 PM [facility] MPV 11.1(H) 7.0 - 11.0 FL LAB HEMETOLOGY METHOD 08/07/2024 12:20 PM [facility] NRBC 0.0 <1.0 % LAB HEMETOLOGY METHOD 08/07/2024 12:20 PM [facility] NRBC Absolute 0.00 <0.10 K/mcL LAB HEMETOLOGY METHOD 08/07/2024 12:20 PM [facility] Blood Venous blood specimen / Unknown Venipuncture / Unknown 08/07/2024 7:10 AM EST 08/07/2024 11:10 AM EST Niels Israel MD LAB BLOOD ORDERABLES [facility] [address] [place] [address], * (ABNORMAL) Basic metabolic panel (08/07/2024 7:10 AM EST) Sodium 135 133 - 145 mmol/L LAB CHEMISTRY METHOD 08/07/2024 12:37 PM [facility] Potassium 3.3(L) 3.5 - 5.5 mmol/L LAB CHEMISTRY METHOD 08/07/2024 12:37 PM [facility] Chloride 100 96 - 110 mmol/L LAB CHEMISTRY METHOD 08/07/2024 12:37 PM [facility] CO2 32 21 - 32 mmol/L LAB CHEMISTRY METHOD 08/07/2024 12:37 PM [facility] Anion Gap 3 3 - 11 LAB CHEMISTRY METHOD 08/07/2024 12:37 PM [facility] Glucose 93 70 - 100 mg/dL LAB CHEMISTRY METHOD 08/07/2024 12:37 PM [facility] BUN 20 5 - 25 mg/dL LAB CHEMISTRY METHOD 08/07/2024 12:37 PM [facility] Creatinine 1.16(H) 0.50 - 1.10 mg/dL LAB CHEMISTRY METHOD 08/07/2024 12:37 PM [facility] eGFR 45(L) >=60 mL/min/1. 73m2 LAB CHEMISTRY METHOD 08/07/2024 12:37 PM [facility] Comment:Calculation based on the??Chronic Kidney Disease Epidemiology Collaboration (CKD-EPI) equation refit??without adjustment for race. BUN/Creatinine Ratio 17.2 LAB CHEMISTRY METHOD 08/07/2024 12:37 PM [facility] Calcium 8.4(L) 8.5 - 10.5 mg/dL LAB CHEMISTRY METHOD 08/07/2024 12:37 PM [facility] Blood Venous blood specimen / Unknown Venipuncture / Unknown 08/07/2024 7:10 AM EST 08/07/2024 11:10 AM EST Niels Israel MD LAB BLOOD ORDERABLES [facility] [address] [place] [address], documented in this encounter Visit Diagnoses Diagnosis Chronic obstructive pulmonary disease, unspecified (CMS/HCC) documented in this encounter Care Teams Personal Financial Planner Relationship Specialty Start Date End Date Niels Israel MD [address] [place] [address], [id number] PCP - General Family Medicine 06/21/24 documented as of this encounter
--- OUTSIDE RECORDS SUMMARY | 2024-08-12 23:31 | XMS_ITS | Continuity of Care Document ---
Author Organization [facility], [facility] Address [address] [place] [address] Care Team Providers Care University Demonstrator Name Role Phone REGTAMRA BOWLES - 2ND [...] Address Organization Details Recorded Time Essential hypertension 28554087 Active 2023 Zully Moyer NP [address] , [address], [place], [address], [facility] 4 12:51:24 Chronic obstructive pulmonary disease 64926548 Active 2023 Zully Moyer NP [address], [address], [place], [address], [facility] 4 12:51:37 Atrial fibrillation 16219234 Active 2023 Zully Moyer NP [address], [address], [place], [address], [facility] 4 12:52:28 Abdominal aortic aneurysm 794316603 Active 2023 Zully Moyer NP [address], [address], [place], [address], [facility] 4 12:53:01 Hypothyroidism 35376780 Active 2023 Zluly Moyer NP [address], [address], [place], [address], [facility] 4 12:53:41 Tubo-ovarian mass 602339618 Active 2023 Zully Moyer NP [address], [address], [place], [address], [facility] [facility] 4 12:53:57 Acute kidney injury 23547458 Active 2023 Zully Moyer NP [address], [address], [place], [address], [facility] [employer] [facility] 4 12:54:06 Compression fracture Active 2023 Zully Moyer NP [address], [address], [place], [address], [employer] [facility] 4 12:55:00 Asthenia 80519520 Active 2023 Zully Moyer NP [address], [address], [place], [address], [employer] [facility] 4 13:04:28 Gastroesophage al reflux disease 275435392 Active 2023 Zully Moyer NP [address], [address], [place], [address], [facility] 4 13:11:38 Chronic pain 49914247 Active 2023 Zully Moyer NP [address], [address], [place], [address], [facility] 4 13:17:02 Coronary arterioscleros is 61733540 Active 2023 Zully Moyer NP [address], [address], [place], [address], [facility] 4 13:17:49 Constipation 08682079 Active 2023 Zully Moyer NP [address], [address], [place], [address], [facility] 4 13:18:47 Abnormal weight loss 848019435 Active 2023 Sanjuanita Diaz MD [address], [address], [place], [address], [facility] 4 15:54:21 Hypokalemia 66656681 Active 2023 Sanjuanita Diaz MD [address] [facility], [address], [place], [address], [facility] 4 16:06:58 Chronic kidney disease stage 3A 183786240 Active 2023 Sanjuanita Diaz MD [address] [facility], [address], [place], [address], [facility] 4 16:15:00 Anemia 182640658 Active 2023 LEONARD BROWNING NP [address] [facility], [address], [place], [address], [facility] 4 12:11:57 Problem Notes None recorded. Medical Equipment None Reported. Allergies Allergen ID Allergen Name Allergen Category Reaction Reaction Severity Criticality Documentation Date Start Date Code Code System Note Provider Name and Address Organization Details Recorded Time 78585 adhesive tape environme nt,medica tion other Not available unabletoasse 01/22/2024 32230 UNK Not Available Not Available Not Available 19726 codeine medicatio n other [facility] 01/22/2024 2670 RxNorm Not Available Not Available Not Available 58759 Iodinated contrast media (substanc e) medicatio n other Not available unabletoasse 01/22/2024 29750 2004 SNOMED Not Available Not Available Not Available 57553 iodine medicatio n other Not available unabletoasse 01/22/2024 5933 RxNorm Not Available Not Available Not Available 05336 oxycodone medicatio n other Not available unabletoasse 01/22/2024 7804 RxNorm Not Available Not Available Not Available 68886 papaya extract food,medi cation other Not available unabletoasse 01/22/2024 98436 12 RxNorm Not Available Not Available Not Available 49827 strawberr y allergeni c extract food other Not available unabletoasse 01/22/2024 33080 4 RxNorm Not Available Not Available Not Available 87627 procaine hydrochlo ride medicatio n other Not available unabletoasse ss 01/22/2024 68718 8 RxNorm Not Available Not Available Not Available 96238 acetamino phen / hydrocodo ne medicatio n nausea vomiting Not available Not available [facility] 01/22/2024 52988 2 RxNorm Not Available Not Available Not Available 95036 pineapple extract food other Not available [facility] 01/22/2024 66855 74 RxNorm Not Available Not Available Not [...] Details Last Updated DateTime 5 165.1 cm 73160.5 3 g 60 /min 20 /min 97.4 [degF] 95 % 95 % 138 mm[Hg] 76 mm[Hg] Zully Moyer NP [address] [facility], [address], [place], [address], [facility] 5 15:24:14 Social History Question Answer Notes LastModified by Organizat ion Details LastModified Time Tobacco Smoking Status Never Smoker Zully Moyer NP [address] [facility], [address], [place], [address], [facility] 01/22/2024 13:59:17 Do You Have An Advance Directive? Yes Information not available 01/25/2024 What Is Your Level Of Alcohol Consumption? None Information not available 01/22/2024 What Is Your Code Status? Full Code Information not available 01/22/2024 Where Do You Live? SingleLevelHouse Information not available 01/25/2024 Legal Guardian? No Informati on not available 01/25/2024 Do You Have A Medical Power Of Felt Hat Inspector And Packer? Yes Information not available 01/25/2024 What Was [...] SNOMED-CT Code Diagnosis ICD10 Code Diagnosis Note [id number] Zully Moyer NP [address] [address] 08/05/2024 12:19:52 08/06/2024 15:15:10 Chronic kidney disease stage 3A 059504035 N18.31 Stable since last hospitaliz ation.Cont inue to avoid nephrotoxi c meds as able.Monit or labs.Renal consult prn. Essential hypertension 90441589 I10 borderline SBPs, but within range for permissive HTN.Contin uehydralaz ine 25 mg TIDmetopro lol ER 25 mg qdfurosemi de 80 mg qdamlodipi ne 5 mg BID.cont KCl 40 meq po qd to prevent hypokalemi a.(was on higher dose)BP goal for this elderly woman is permissive HTN, with SBP<150 and DBP<90Moni tor BP and labs on wednesdays Infection caused by Norovirus 634866187 A08.11 pt had norovoviru s now resolved in hospital treated with fluids etc...ileu s resolvedse e hpisupport geri carerestad v diet as toleratedm onitor need to start fluids Urinary tr act infectious disease 55040243 N39.0 tx with abxto complete levaquin 750 mg po q 48 hrs with probioticm onitor for decrease in wbc and resolution Pressure i njury of toe of left foot stage I 8085849019 75042 L89.891 skin prep to right hallux daily for 10 daysbandai d over toenail which is catching on her sockmonito r Chronic ob structive pulmonary disease 72523064 J43.8 Severe copd on home 02 2-3 liters at baselinewi possible chf component received ivf in hosp and now has crackles to right base08/05la six to 80 mg po qd for increased sob and on 40 mg po potassium qdpredniso ne 40 mg po qd x 5daysduone b q 6 hrs qid and prn sob/wheezi ng and sched bidcontsup plemental O2 by NC, titrate to maintain sats 88-92% (seems 3liters baseline)m ontelukast 10 mg qhsrobitus sin (coricidin not avail)Bryanna tor resp status.cbc , bmp and bnp weekly x 3 on wednesdays [id number] Zully Moyer NP [address] [place] [address] 08/07/2024 15:23:34 08/09/2024 09:59:52 Chronic obstructive pulmonary disease 31974299 J43.8 Severe copd on home 02 2-3 [...] on wednesdays Urinary tr act infectious disease 15182854 N39.0 tx with abxto complete levaquin 750 mg po q 48 hrs with probioticm onitor for decrease in wbc and resolution Chronic ki dney disease stage 3A 400436744 N18.31 Stable since last hospitaliz ation.Cont inue to avoid nephrotoxi c meds as able.Monit or labs.Renal consult prn. Essential hypertension 72210902 I10 borderline SBPs, but within range for [...] wednesdays Impacted c erumen in right ear 9277808630 675652 H61.21 debrox 4gtts to right ear tid x 5 days and flush day 6audiology consultmon itor Health Concerns Section Related Observation LastModified by Organization Detai ls LastModified Time None Recorded Concern Status LastModified by Organization Details LastModified Time None Recorded Payers Encounter Date Sequence Insurance Name Policy Number Policy Marin Covered Member ID [place] Member ID Guarantor Name 08/07/2024 2 [place] Vane Salinas [id number] Vane Salinas 08/07/2024 1 [place] [employer] Vane Tylerr [id number] Vane Salinas Notes Date Note Type Note Provider Name and Address Organization Details Recorded Time 08/07/2024 text/html Vane is seen today for an acute rounding visit. PMH: HTN, COPD on home O2, PAfib now on Eliquis, CAD with ? hx of [place] in 2019, hypothyroidism, AAA-3.4 cm, and right adnexal mass-9 cm-no tx needed per ANIMAL CRUELTY INVESTIGATION SUPERVISOR as tumor markers neg. and most [...] MOLST: full code Zully Moyer NP [address] [facility], [address], [place], [address], [place] - [employer] 08/07/2024 15:46:12 OBGyn Episode No OBEpisode recorded.
--- OUTSIDE RECORDS SUMMARY | 2024-08-12 23:31 | XMS_ITS | Continuity of Care Document ---
Author Organization [facility], [facility] Address [address] [place] [address] Care Team Providers Care Field Talent Qualification Specialist Name Role Phone REGTAMRA BOWLES - 2ND [...] Address Organization Details Recorded Time Essential hypertension 24820905 Active 2023 Zully Moyer NP [address], [place], [address], [facility] [employer] [facility] 4 12:51:24 Chronic obstructive pulmonary disease 85006673 Active 2023 Zully Moyer NP [address], [address], [place], [address], [facility] [employer] [facility] 4 12:51:37 Atrial fibrillation 33515529 Active 2023 Zully Moyer NP [address], [address], [place], [address], [facility] [employer] [facility] 4 12:52:28 Abdominal aortic aneurysm 189985664 Active 2023 Zully Moyer NP [address], [address], [place], [address], [facility] [employer] [facility] 4 12:53:01 Hypothyroidism 31236897 Active 2023 Zully Moyer NP [address], [address], [place], [address], [facility] 4 12:53:41 Tubo-ovarian mass 857430361 Active 2023 Zully Moyer NP [address], [place], [address], [facility] [employer] [facility] 4 12:53:57 Acute kidney injury 14216436 Active 2023 Zully Moyer NP [address], [place], [address], [facility] [employer] [facility] 4 12:54:06 Compression fracture Active 2023 Zully Moyer NP [address], [place], [address], [employer] [facility] 4 12:55:00 Asthenia 02558763 Active 2023 Zully Moyer NP [address], [place], [address], [employer] [facility] 4 13:04:28 Gastroesophage al reflux disease 916269826 Active 2023 Zully Moyer NP [address], [place], [address], [facility] 4 13:11:38 Chronic pain 70453051 Active 2023 Zully Moyer NP [address], [place], [address], [facility] 4 13:17:02 Coronary arterioscleros is 95009119 Active 2023 Zully Moyer NP [address], [place], [address], [facility] 4 13:17:49 Constipation 84561869 Active 2023 Zully Moyer NP [address], [place], [address], [facility] 4 13:18:47 Abnormal weight loss 651114570 Active 2023 Sanjuanita Diaz MD [address], [place], [address], [facility] 4 15:54:21 Hypokalemia 58587295 Active 2023 Sanjuanita Diaz MD [address] [facility], [address], [place], [address], [facility] 4 16:06:58 Chronic kidney disease stage 3A 301309633 Active 2023 Sanjuanita Diaz MD [address] [facility], [address], [place], [address], [facility] 4 16:15:00 Anemia 039469722 Active 2023 LEONARD BROWNING NP [address], [address], [place], [address], [facility] 4 12:11:57 Problem Notes None recorded. Medical Equipment None Reported. Allergies Allergen ID Allergen Name Allergen Category Reaction Reaction Severity Criticality Documentation Date Start Date Code Code System Note Provider Name and Address Organization Details Recorded Time 49715 adhesive tape environme nt,medica tion other Not available unabletoasse 01/22/2024 93767 UNK Not Available Not Available Not Available 25968 codeine medicatio n other Not available [facility] 01/22/2024 2670 RxNorm Not Available Not Available Not Available 10883 Iodinated contrast media (substanc e) medicatio n other Not available unabletoasse 01/22/2024 58449 2004 SNOMED Not Available Not Available Not Available 70211 iodine medicatio n other Not available unabletoasse 01/22/2024 5933 RxNorm Not Available Not Available Not Available 21919 oxycodone medicatio n other Not available unabletoasse 01/22/2024 7804 RxNorm Not Available Not Available Not Available 94591 papaya extract food,medi cation other Not available unabletoasse 01/22/2024 95906 12 RxNorm Not Available Not Available Not Available 68367 strawberr y allergeni c extract food other Not available unabletoasse 01/22/2024 42764 4 RxNorm Not Available Not Available Not Available 83111 procaine hydrochlo ride medicatio n other Not available unabletoasse ss 01/22/2024 31926 8 RxNorm Not Available Not Available Not Available 96761 acetamino phen / hydrocodo ne medicatio n nausea vomiting Not available Not available [facility] 01/22/2024 99822 2 RxNorm Not Available Not Available Not Available 42974 pineapple extract food other Not available [facility] 01/22/2024 70112 74 RxNorm Not Available Not Available Not [...] Vitals Date Recorded Body height Body weight Body mass index (BMI) Heart rate Respiratory rate Body temperature Oxygen saturation Oxygen saturation in Arterial blood by Pulse oximetry Systolic blood pressure Diastolic blood pressure Provider Name and Address Organization Details Last Updated DateTime 5 165.1 cm 59623.5 3 g 19 kg/m2 60 /min 20 /min 97.4 [degF] 95 % 95 % 158 mm[Hg] 70 mm[Hg] Zully Moyer NP [address], [address], [place], [address], [facility] 5 12:20:51 Social History Question Answer Notes LastModified by Organizat ion Details LastModified Time Tobacco Smoking Status Never Smoker Zully Moyer NP [address], [address], [place], [address], [facility] 01/22/2024 13:59:17 Do You Have An Advance Directive? Yes Information not available 01/25/2024 What Is Your Level Of Alcohol Consumption? None Information not available 01/22/2024 What Is Your Code Status? Full Code Information not available 01/22/2024 Where Do You Live? SingleLevelHouse Information not available 01/25/2024 Legal Guardian? No Informati on not available 01/25/2024 Do You Have A Medical Power Of Teletype Mechanic? Yes Information not available 01/25/2024 What Was [...] SNOMED-CT Code Diagnosis ICD10 Code Diagnosis Note [id number] Zully Moyer NP [address] [place] [address] 08/05/2024 12:19:52 08/06/2024 15:15:10 Chronic kidney disease stage 3A 150841546 N18.31 Stable since last hospitaliz ation.Cont inue to avoid nephrotoxi c meds as able.Monit or labs.Renal consult prn. Essential hypertension 43445349 I10 borderline SBPs, but within range for permissive HTN.Contin uehydralaz ine 25 mg TIDmetopro lol ER 25 mg qdfurosemi de 80 mg qdamlodipi ne 5 mg BID.cont KCl 40 meq po qd to prevent hypokalemi a.(was on higher dose)BP goal for this elderly woman is permissive HTN, with SBP<150 and DBP<90Moni tor BP and labs on wednesdays Infection caused by Norovirus 156261311 A08.11 pt had norovoviru s now resolved in hospital treated with fluids etc...ileu s resolvedse e hpisupport geri carerestad v diet as toleratedm onitor need to start fluids Urinary tr act infectious disease 42057986 N39.0 tx with abxto complete levaquin 750 mg po q 48 hrs with probioticm onitor for decrease in wbc and resolution Pressure i njury of toe of left foot stage I 5055897421 80122 L89.891 skin prep to right hallux daily for 10 daysbandai d over toenail which is catching on her sockmonito r Chronic ob structive pulmonary disease 09636861 J43.8 Severe copd on home 02 2-3 [...] and bnp weekly x 3 on wednesdays Health Concerns Section Related Observation LastModified by Organization Detai ls LastModified Time None Recorded Concern Status LastModified by Organization Details LastModified Time None Recorded Payers Encounter Date Sequence Insurance Name Policy Number Policy Marin Covered Member ID Marin Member ID Guarantor Name 08/05/2024 2 [place] [facility] Narayan Tylerr [id number] Narayan Tylerr 08/05/2024 1 [place] B[place] [employer] Narayan Almazanemer [id number] Narayan Almazanemer Notes Date Note Type Note Provider Name and Address Organization Details Recorded Time 08/05/2024 text/html Narayan is seen tod ay for a readmission visit. PMH: HTN, COPD on home O2, PAfib now on Eliquis, CAD with ? hx of [place] in 2019, hypothyroidism, AAA-3.4 cm, and right adnexal mass-9 cm-no tx needed per [employer] BIOMANUFACTURING TECHNICIAN as tumor markers neg. 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 Narayan is a 89 yo was [place] [facility] [place], vomiting, diarrhea, hypertension dx with [...] is allergic to this med. On exam, Narayan states her breathing is worse with too much junk in her lungs . She has some RLL crackles on exam and remains on 3liters o2 saturating 95%, which is her baseline. No edema noted to lower extremities. Also states her right great toe is bothering her. She denies any other symptoms. MOLST: full code Zully Moyer, KEILA [address] [facility], [address], [place], [address], [facility] [employer] [facility] 08/05/2024 16:26:10 OBGyn Episode No OBEpisode recorded.
--- OUTSIDE RECORDS SUMMARY | 2024-08-12 23:31 | XMS_ITS | Encounter Summary ---
Author Organization [facility] Address [address] [place] [address] Care Team Providers Care Fittings Finisher Name Role Phone Niels Israel MD Primary Care Provider [phone] Encounter Details Date Type Department Care Team (Late st Contact Info) Description 06/21/2024 Lab Requisition [facility] - Main Lab [address] [place] [address] Niels Israel MD [address] [place] [address] [address] [place], [address] Chronic obstructive pulmonary disease, unspecified (CMS/HCC) [...] Associated Diagnosis Comments COMPLETE BLOOD COUNT Routine 06/21/2024 6:21 AM EST Chronic obstructive pulmonary disease, unspecified (CMS/HCC) documented in this encounter Results * (ABNORMAL) Complete blood count (06/21/2024 6:21 AM EST) WBC 5.8 4.8 - 10.8 K/[facility] LAB HEMETOLOGY METHOD 06/21/2024 10:48 AM EST [facility] RBC 3.50(L) 3.80 - 4.80 M/[facility] LAB HEMETOLOGY METHOD 06/21/2024 10:48 AM EST [facility] Hemoglobin 10.6(L) 11.5 - 16.0 g/dL LAB HEMETOLOGY METHOD 06/21/2024 10:48 AM EST [facility] LAB Hematocrit 33.2(L) 35.0 - 47.0 % LAB HEMETOLOGY METHOD 06/21/2024 10:48 AM [facility] MCV 96.0 79.0 - 98.0 FL LAB HEMETOLOGY METHOD 06/21/2024 10:48 AM [facility] LAB MCH 30.6 27.0 - 32.0 pcg LAB HEMETOLOGY METHOD 06/21/2024 10:48 AM EST [facility] MCHC 31.9(L) 32.0 - 37.0 g/dL LAB HEMETOLOGY METHOD 06/21/2024 10:48 AM [facility] RDW 12.6 11.0 - 15.0 % LAB HEMETOLOGY METHOD 06/21/2024 10:48 AM [facility] Platelets 295 130 - 400 K/mcL LAB HEMETOLOGY METHOD 06/21/2024 10:48 AM EST [facility] MPV 10.1 7.0 - 11.0 FL LAB HEMETOLOGY METHOD 06/21/2024 10:48 AM [facility] NRBC 0.0 <1.0 % LAB HEMETOLOGY METHOD 06/21/2024 10:48 AM [facility] LAB NRBC Absolute 0.00 <0.10 K/mcL LAB HEMETOLOGY METHOD 06/21/2024 10:48 AM [facility] Blood Venous blood specimen / Unknown Venipuncture / Unknown 06/21/2024 6:21 AM EST 06/21/2024 9:36 AM EST Niels Israel MD LAB BLOOD ORDERABLES [facility] [address] [place] [address], documented in this encounter Visit Diagnoses Diagnosis Chronic obstructive pulmonary disease, unspecified (CMS/HCC) documented in this encounter Care Teams Fittings Finisher Relationship Specialty Start Date End Date Niels Israel MD [address] [place] [address], [phone] PCP - General Family Medicine 06/21/24 documented as of this encounter
--- OUTSIDE RECORDS SUMMARY | 2024-08-12 23:31 | XMS_ITS | Continuity of Care Document ---
Author Organization [facility], [facility] Address [address] [place] [address] Care Team Providers Care Press Cutter Name Role Phone REGTAMRA BOWLES - 2ND [...] Address Organization Details Recorded Time Essential hypertension 65471073 Active 2023 Zully Moyer NP [address] , [address], [place], [address], [facility] [employer] [facility] 4 12:51:24 Chronic obstructive pulmonary disease 15359189 Active 2023 Zully Moyer NP [address], [address], [place], [address], [facility] [employer] [facility] 4 12:51:37 Atrial fibrillation 24133561 Active 2023 Zully Moyer NP [address], [address], [place], [address], [facility] [employer] [facility] 4 12:52:28 Abdominal aortic aneurysm 313113284 Active 2023 Zully Moyer NP [address], [address], [place], [address], [facility] [employer] [facility] 4 12:53:01 Hypothyroidism 06957341 Active 2023 Zully Moyer NP [address], [address], [place], [address], [facility] 4 12:53:41 Tubo-ovarian mass 935952128 Active 2023 Zully Moyer NP [address], [address], [place], [address], [facility] [employer] [facility] 4 12:53:57 Acute kidney injury 19953227 Active 2023 Zully Moyer NP [address], [address], [place], [address], [facility] [employer] [facility] 4 12:54:06 Compression fracture Active 2023 Zully Moyer NP [address], [address], [place], [address], [employer] [facility] 4 12:55:00 Asthenia 95591139 Active 2023 Zully Moyer NP [address], [address], [place], [address], [employer] 4 13:04:28 Gastroesophage al reflux disease 700634776 Active 2023 Zully Moyer NP [address], [address], [place], [address], [facility] 4 13:11:38 Chronic pain 36304557 Active 2023 Zully Moyer NP [address], [address], [place], [address], [facility] 4 13:17:02 Coronary arterioscleros is 28491232 Active 2023 Zully Moyer NP [address], [address], [place], [address], [facility] 4 13:17:49 Constipation 56946461 Active 2023 Zully Moyer NP [address], [address], [place], [address], [facility] [facility] 4 13:18:47 Abnormal weight loss 754258562 Active 2023 Sanjuanita Diaz MD [address], [address], [place], [address], [facility] 4 15:54:21 Hypokalemia 46712153 Active 2023 Sanjuanita Diaz MD [address] [facility], [address], [place], [address], [facility] 4 16:06:58 Chronic kidney disease stage 3A 688068126 Active 2023 Sanjuanita Diaz MD [address] [facility], [address], [place], [address], [facility] 4 16:15:00 Anemia 910333845 Active 2023 LEONARD BROWNING NP [address] [facility] [address] [facility], [address], [place], [address], [facility] 4 12:11:57 Problem Notes None recorded. Medical Equipment None Reported. Allergies Allergen ID Allergen Name Allergen Category Reaction Reaction Severity Criticality Documentation Date Start Date Code Code System Note Provider Name and Address Organization Details Recorded Time 44122 adhesive tape environme nt,medica tion other Not available unabletoasse 01/22/2024 29153 UNK Not Available Not Available Not Available 31350 codeine medicatio n other Not available [facility] 01/22/2024 2670 RxNorm Not Available Not Available Not Available 75898 Iodinated contrast media (substanc e) medicatio n other Not available unabletoasse 01/22/2024 01597 2004 SNOMED Not Available Not Available Not Available 57472 iodine medicatio n other Not available unabletoasse 01/22/2024 5933 RxNorm Not Available Not Available Not Available 21005 oxycodone medicatio n other Not available unabletoasse 01/22/2024 7804 RxNorm Not Available Not Available Not Available 77883 papaya extract food,medi cation other Not available unabletoasse 01/22/2024 12226 12 RxNorm Not Available Not Available Not Available 41191 strawberr y allergeni c extract food other Not available unabletoasse 01/22/2024 08972 4 RxNorm Not Available Not Available Not Available 20632 procaine hydrochlo ride medicatio n other Not available unabletoasse ss 01/22/2024 98962 8 RxNorm Not Available Not Available Not Available 95503 acetamino phen / hydrocodo ne medicatio n nausea vomiting Not available Not available [facility] 01/22/2024 51620 2 RxNorm Not Available Not Available Not Available 95354 pineapple extract food other Not available [facility] 01/22/2024 01869 74 RxNorm Not Available Not Available Not [...] Updated DateTime 5 165.1 cm 19 kg/m2 00798.5 3 g 60 /min 10 /min 97.4 [degF] 97 % 97 % 3 L/min 118 mm[Hg] 84 mm[Hg] Zully Moyer NP [address], [address], [place], [address], [facility] 5 09:54:43 Social History Question Answer Notes LastModified by Organizat ion Details LastModified Time Tobacco Smoking Status Never Smoker Zully Moyer NP [address], [address], [place], [address], [facility] 01/22/2024 13:59:17 Do You Have An Advance Directive? Yes Information not available 01/25/2024 What Is Your Level Of Alcohol Consumption? None Information not available 01/22/2024 What Is Your Code Status? Full Code Information not available 01/22/2024 Where Do You Live? SingleLevelHouse Information not available 01/25/2024 Legal Guardian? No Informati on not available 01/25/2024 Do You Have A Medical Power Of Manager [place]? Yes Information not available 01/25/2024 What Was [...] SNOMED-CT Code Diagnosis ICD10 Code Diagnosis Note [id number] Zully Moyer NP [address] [place] [address] 08/05/2024 12:19:52 08/06/2024 15:15:10 Chronic kidney disease stage 3A 777797033 N18.31 Stable since last hospitaliz ation.Cont inue to avoid nephrotoxi c meds as able.Monit or labs.Renal consult prn. Essential hypertension 01215485 I10 borderline SBPs, but within range for permissive HTN.Contin uehydralaz ine 25 mg TIDmetopro lol ER 25 mg qdfurosemi de 80 mg qdamlodipi ne 5 mg BID.cont KCl 40 meq po qd to prevent hypokalemi a.(was on higher dose)BP goal for this elderly woman is permissive HTN, with SBP<150 and DBP<90Moni tor BP and labs on wednesdays Infection caused by Norovirus 202851542 A08.11 pt had norovoviru s now resolved in hospital treated with fluids etc...ileu s resolvedse e hpisupport geri carerestad v diet as toleratedm onitor need to start fluids Urinary tr act infectious disease 28078130 N39.0 tx with abxto complete levaquin 750 mg po q 48 hrs with probioticm onitor for decrease in wbc and resolution Pressure i njury of toe of left foot stage I 8855093406 79823 L89.891 skin prep to right hallux daily for 10 daysbandai d over toenail which is catching on her sockmonito r Chronic ob structive pulmonary disease 67808373 J43.8 Severe copd on home 02 2-3 [...] and bnp weekly x 3 on wednesdays [id number] Zully Moyer NP [address] [address] 08/07/2024 15:23:34 08/09/2024 09:59:52 Chronic obstructive pulmonary disease 73190950 J43.8 Severe copd on home 02 2-3 [...] on wednesdays Urinary tr act infectious disease 17025430 N39.0 tx with abxto complete levaquin 750 mg po q 48 hrs with probioticm onitor for decrease in wbc and resolution Chronic ki dney disease stage 3A 040569887 N18.31 Stable since last hospitaliz ation.Cont inue to avoid nephrotoxi c meds as able.Monit or labs.Renal consult prn. Essential hypertension 35085796 I10 borderline SBPs, but within range for [...] wednesdays Impacted c erumen in right ear 8178120629 714002 H61.21 debrox 4gtts to right ear tid x 5 days and flush day 6audiology consultmon itor [id number] [facility] [address] [facility] [place] [address] 08/08/2024 09:54:02 08/09/2024 12:12:39 Essential hypertension 22543556 I10 borderline SBPs, but within range for [...] on wednesdays Chronic ob structive pulmonary disease 60024430 J43.8 Severe copd on home 02 2-3 [...] plan above Urinary tr act infectious disease 90591472 N39.0 tx with abxto complete levaquin 750 mg po q 48 hrs with probioticm onitor for decrease in wbc and resolution Health Concerns Section Related Observation LastModified by Organization Detai ls LastModified Time None Recorded Concern Status LastModified by Organization Details LastModified Time None Recorded Payers Encounter Date Sequence Insurance Name Policy Number Policy Marin Covered Member ID Marin Member ID Guarantor Name 08/08/2024 2 [place] [employer] Vane Salinas [id number] Vane Salinas 08/08/2024 1 MEDIC[place] B-[place] [employer] Vane Salinas [id number] Vane Salinas Notes Date Note Type Note Provider Name and Address Organization Details Recorded Time 08/08/2024 text/html Vane is seen today for an acute rounding visit. PMH: HTN, COPD on home O2, PAfib now on Eliquis, CAD with ? hx of [place] in 2019, hypothyroidism, AAA-3.4 cm, and right adnexal mass-9 cm-no tx needed per G[employer] PLUMBING INSPECTOR as tumor markers neg. and most likely [...] baseline post treatment. MOLST: full code Zully Moyer NP [address] [facility], [address], [place], [address], [facility] [employer] 08/08/2024 16:36:15 OBGyn Episode No OBEpisode recorded.
[2024-08-12 23:43] LABS: MANUAL DIFF FLAG NO
[2024-08-12 23:46] LABS: Basophils Absolute Auto 0.1 X10*3/uL (0.0-0.2); Basophils Percent Auto 0.5 % (0-2); Eosinophils Absolute Auto 0.4 X10*3/uL (0.0-0.4); Eosinophils Percent Auto 3.3 % (0-4); Hematocrit 35.9 % (37.0-47.0); Imm Gran Abs Auto 0.09 X10*3/uL (0.00-0.03); Imm Gran Pct Auto 0.8 % (0.0-0.4); Lymphocytes Absolute Auto 1.2 X10*3/uL (1.2-4.9); Lymphocytes Percent Auto 11.2 % (20-40); Mean Corpuscular HGB Conc 33.4 g/dl (31.0-35.0); Mean Corpuscular Hemoglobin 30.7 pg (27.0-33.0); Mean Corpuscular Volume 91.8 fL (80.0-98.0); Mean Platelet Volume 9.9 fL (9.4-12.3); Monocytes Absolute Auto 1.1 X10*3/uL (0.1-1.2); Monocytes Percent Auto 10.6 % (2-11); Neutrophils Absolute Auto 7.9 x10*3/uL (2.0-8.3); Neutrophils Percent Auto 73.6 % (45-73); Platelet Count 307 X10*3/uL (160-400); Red Blood Count 3.91 X10*6/uL (4.20-5.50); Red Cell Distribution Width 13.7 % (11.0-16.0); White Blood Count 10.7 X10*3/uL (4.8-10.8)
[2024-08-12 23:52] LABS: INTERNATIONAL NORM RATIO 1.1 (0.9-1.1); Prothrombin Time 12.7 SEC (10.9-12.4)
[2024-08-13] VITALS (8 sets, daily range): BP systolic 119–190; BP diastolic 42–80; PULSE 55–71; RESP 10–20; TEMP 36–36.8; O2SAT 93–99
[2024-08-13 00:02] LABS: COVID-19 Test Negative (Negative); IDNOW Serial# 55D5AD1C; IDNOW Serial# 58CA691E; Influenza A Negative (Negative); Influenza B2 Negative (Negative)
[2024-08-13 00:06] LABS: Alanine Aminotransferase 20 U/L (0-31); Albumin Level 3.3 g/dL (3.5-5.0); Alkaline Phosphatase 67 U/L (39-117); Anion Gap 13 (12-20); Aspartate Amino Transferase 31 U/L (5-31); Bilirubin Direct 0.1 mg/dL (0.0-0.5); Bilirubin Total 0.4 mg/dL (0.0-1.0); Blood Urea Nitrogen 44 mg/dL (9-16); Carbon Dioxide 27 mmol/L (22-29); Chloride 101 mmol/L (96-108); Creatinine Clr Calc Pharmacy 19.4; Estimated Glomerular Filt Rate 27; Glucose Random 111 mg/dL (60-115); Lipase 63 U/L (8-78); Magnesium 2.4 mg/dL (1.6-2.6); Potassium 5.2 mmol/L (3.3-5.1); Sodium 136 mmol/L (135-145); Troponin-I High Sensitivity 9.8 ng/L (<3.5-17.0)
[2024-08-13 00:09] LABS: Lactic Acid 1.4 mmol/L (0.5-2.0)
[2024-08-13 00:20] LABS: TSH reflex Free T4 7.76 uIU/mL (0.32-4.0)
[2024-08-13 00:54] LABS: Free T4 (Free Thyroxine) 1.07 ng/dL (0.71-1.85)
[2024-08-13 01:26] LABS: Appearance Urine Clear; Color Urine Yellow; Glucose Urine UA Negative (Negative); Leukocyte Esterase Urine Negative (Negative); Nitrite Urine Negative (Negative); Specific Gravity - Urine 1.015 (1.005-1.025); UMIC TRIGGER UACC YES; Urine Blood Negative (Negative); Urine Ketones Negative (Negative); Urine Protein 300 (3+) mg/dL (Neg-Trace)
[2024-08-13 01:32] LABS: Bacteria Urine None Seen (None Seen); RBC Urine 0-2 /HPF (0-2); Squamous Epithelial Cell Urine 0-2 /HPF (0-2); WBC Urine 0-5 /HPF (0-5)
[2024-08-13 01:36] LABS: Amphetamine Screen Urine Not Detected (Not Detect); Barbiturates, Urine Not Detected (Not Detect); Benzodiazepines Screen Urine Not Detected (Not Detect); Buprenorphine Scr Not Detected (Not Detect); Cannabinoid Screen Urine Not Detected (Not Detect); Cocaine Screen Urine Not Detected (Not Detect); Fentanyl, urine Not Detected (Not Detect); Methadone Screen, Urine Not Detected (Not Detect); Opiate Screen Urine Not Detected (Not Detect); Oxycodone Screen Urine Not Detected (Not Detect); Phencyclidine Screen Urine Not Detected (Not Detect)
[2024-08-13] MEDS: Lactated Ringers 1,000 ML 999 ML IV (01:54)
[2024-08-13 05:18] LABS: Anion Gap 13 (12-20); Blood Urea Nitrogen 42 mg/dL (9-16); Calcium 8.2 mg/dL (8.4-10.2); Carbon Dioxide 25 mmol/L (22-29); Chloride 105 mmol/L (96-108); Creatinine Clr Calc Pharmacy 19.8; Estimated Glomerular Filt Rate 27; Glucose Random 89 mg/dL (60-115); Potassium 5.2 mmol/L (3.3-5.1); Sodium 138 mmol/L (135-145)
--- NOTE | 2024-08-13 05:55 | P.HPHOSP_ITS ---
History of Present Illness Date of Service: 08/13/24 Attending physician on admission: Shimon Mendez Chief Complaint: syncope Patient is an 89-year-old female with a past medical history significant for COPD on 2-3 L of oxygen at home, HTN, AFib on Eliquis, HLD, HFpEF, [place] 6 years ago and hypothyroidism with a recent admission for UTI and norovirus discharged 1.5 weeks ago, who presented to the ED today after a syncopal episode. She reports that this is a singular episode and occurred after her straining for a large bowel movement. She denies any head strike or injuries. She reports she has not had diarrhea in a few days. She feels okay and is concerned why she is being admitted. She denies any chest pain, shortness of breath, abdominal pain or urinary symptoms including frequency, urgency or dysuria. Her history is conflicting between providers. Review of Systems 2 Constitutional: Constitutional: Denies body ache(s), Denies chills, Denies fatigue, Denies fever(s) and Denies headache(s) Eyes: Eyes: Denies change in vision ENT: Denies headache(s), Denies nasal congestion, Denies nasal discharge and Denies sore throat Cardiovascular: Cardiovascular: Denies chest pain, Denies rapid heart rate, Denies leg edema, Denies lightheadedness and Denies dyspnea Respiratory: Respiratory: Denies chest congestion, Denies cough, Denies dyspnea and Denies wheezing Gastrointestinal: Gastrointestinal: Denies melena, Denies hematochezia, Denies diarrhea, Denies nausea and Denies vomiting Genitourinary: Genitourinary: Denies hematuria, Denies dysuria and Denies urinary urgency Musculoskeletal: Musculoskeletal: Denies myalgias Integumentary/Breasts: Skin/Breast: Denies rash Neurologic: Denies confusion and Denies headache(s) Psychiatric: Psychiatric: Denies confusion Endocrine: Endocrine: Denies fatigue Hematologic/Lymphatic: Hematologic/Lymphatic: Denies easy bleeding and Denies easy bruising Allergic/Immunologic: Allergic/Immunologic: Denies wheezing [facility] Medical History Atrial fibrillation with RVR Adnexal mass Abdominal aortic aneurysm CKD (chronic kidney disease) stage 3, GFR 30-59 ml/min Myocardial infarction Hypothyroidism Hyperlipidemia COPD (chronic obstructive pulmonary disease) HTN (hypertension) PAF (paroxysmal atrial fibrillation) Family History Father History of heart disease Mother History of heart disease Social History Household Members: Other Housing: Retirement Housing Other:: [place] Do you presently have visiting nurse or other home services: Yes Alcohol intake: never Comment: sitter present Patient Tobacco Use Status: Never used Tobacco Smoked in Last 30 Days: No Use of substances other than those prescribed or required for medical reasons: No Advance Directives: Yes Advance Directives on File: Yes Advance Directives Date on File: 10/16/23 Do you have a plan to hurt others: No Plan service: No Current occupational status: retired Narrative: No smoking, alcohol or drug use. Resides at [facility] Allergies Allergy/AdvReac Type Severity Reaction Status Date / Time adhesive tape [Adhesive Tape] Allergy Unknown RASH Verified 08/12/24 22:53 codeine [Codeine] Allergy Unknown SWELLING Verified 08/12/24 22:53 Iodinated Contrast Media Allergy Unknown UNKNOWN Verified 08/12/24 22:53 [IV Dye, Iodine Containing] iodine [Iodine] Allergy Unknown UNKNOWN Verified 08/12/24 22:53 oxycodone [Percocet] Allergy Unknown unknown Verified 08/12/24 22:53 papaya [Papaya] Allergy Unknown HIVES Verified 08/12/24 22:53 pineapple [Pineapple] Allergy Unknown HIVES Verified 08/12/24 22:53 strawberry [[place]] Allergy Unknown HIVES Verified 08/12/24 22:53 Codeine Phosphate Allergy Unknown unknown Uncoded 07/28/24 14:25 Novocain Allergy Unknown unknown Uncoded 07/28/24 14:25 From Vicodin AdvReac Unknown NAUSEA & Uncoded 07/28/24 14:25 VOMITING Active Medications: Current Medications Acetaminophen (Acetaminophen 325 Mg Tablet) 975 mg PO Q6H PRN PRN Reason: Pain, Mild 1-3,fever,headache Apixaban (Apixaban 2.5 Mg Tablet) 2.5 mg PO BID TOBI Calcium Carbonate (Calcium Carbonate 750 Mg Tab.Chew) 750 mg PO Q4H PRN PRN Reason: Heartburn Magnesium Hydroxide (Milk Of Magnesia 30 Ml Oral.Susp) 30 ml PO DAILY PRN PRN Reason: Constipation Melatonin (Melatonin 3 Mg Tablet) 6 mg PO BEDTIME PRN PRN Reason: Insomnia Ondansetron HCl (Ondansetron Hcl 4 Mg/2 Ml Vial) 4 mg IVPUSH Q8H PRN PRN Reason: Nausea and Vomiting Polyethylene Glycol (Polyethylene Glycol 3350 17 Gm Powd.Pack) 17 gm PO DAILY PRN PRN Reason: Constipation Sodium Chloride (0.9 % Sodium Chloride Flush 3 Ml Syringe) 3 ml IVFLUSH [facility] Medications ?Medication ?Instructions ?Recorded ?Confirmed ?Last Taken ?Type gabapentin 300 mg capsule 300 mg PO BID Pain 07/13/20 07/29/24 12/20/22 History ipratropium bromide 17 2 puff inhalation Q6H PRN 07/13/20 07/29/24 12/20/22 History mcg/actuation HFA aerosol inhaler Shortness Of Breath levothyroxine 50 mcg tablet 50 mcg PO SUTUTHSA@0600 07/13/20 07/29/24 12/20/22 History magnesium oxide 400 mg (241.3 mg 400 mg PO BEDTIME 07/13/20 07/29/24 12/20/22 History magnesium) tablet famotidine 20 mg tablet 20 mg PO BID 12/21/22 07/29/24 12/20/22 History montelukast 10 mg tablet 10 mg PO BEDTIME 12/21/22 07/29/24 12/20/22 History multivitamin 1 tab PO DAILY 12/21/22 07/29/24 12/20/22 History furosemide 20 mg tablet 60 mg PO DAILY 09/28/23 07/29/24 11/22/23 History aspirin 81 mg capsule 81 mg PO DAILY 10/27/23 07/29/24 Unknown History ipratropium 0.5 mg-albuterol 3 mg 3 ml inhalation Q4H PRN Wheezing 10/27/23 07/29/24 Unknown History (2.5 mg base)/3 mL nebulization soln acetaminophen 325 mg tablet 650 mg PO Q8H PRN Fever Or Pain 11/06/23 07/29/24 Unknown History levothyroxine 75 mcg tablet 75 mcg PO MOWEFR@0600 11/22/23 07/29/24 Unknown History bisacodyl 10 mg rectal suppository 10 mg IN DAILY PRN Constipation 12/07/23 07/29/24 Unknown History magnesium hydroxide 400 mg/5 mL 30 ml PO DAILY PRN Constipation 12/07/23 07/29/24 Unknown History oral suspension (Milk of Magnesia) naloxone 4 mg/actuation nasal 4 mg intranasal Q3M PRN Opioid 12/07/23 07/29/24 Unknown History spray (Narcan) Overdose sodium phosphates 19 gram-7 118 ml IN DAILY PRN Constipation 12/07/23 07/29/24 Unknown History gram/118 mL enema (Fleet Enema) ascorbic acid (vitamin C) 500 mg 500 mg PO DAILY 03/06/24 07/29/24 Unknown History tablet diclofenac sodium 1 % topical gel 4 g topical DAILY 03/06/24 07/29/24 Unknown History docusate sodium 100 mg capsule 100 mg PO DAILY 03/06/24 07/29/24 Unknown History (Colace) ferrous sulfate 325 mg (65 mg 325 mg PO DAILY 03/06/24 07/29/24 Unknown History iron) tablet,delayed release guaifenesin 100 mg/5 mL oral liquid 200 mg PO Q4H 03/06/24 07/29/24 Unknown History mirtazapine 7.5 mg tablet 7.5 mg PO BEDTIME 03/06/24 07/29/24 Unknown History sennosides 8.6 mg tablet (senna) 8.6 mg PO DAILY PRN Constipation 07/29/24 07/29/24 Unknown History Physical Exam 2 Vital Signs and Narrative: Vital Signs: Last Vital Signs Temp 98.2 F 08/13/24 04:02 Pulse 61 08/13/24 04:02 Resp 10 L 08/13/24 04:02 BP 142/42 H 08/13/24 04:02 Pulse Ox 97 08/13/24 04:02 O2 Del Method Nasal Cannula 08/13/24 04:02 O2 Flow Rate 2 08/13/24 04:02 Oxygen Flow Rate 2 08/12/24 22:51 BMI result Body Mass Index 21.6 General: AOx3, no acute distress Resp: CTA bilaterally CVS: S1, S2, RRR GI: +BS, NT, no distention Skin: Warm, dry Neuro: Cranial nerves II-XII grossly intact bilaterally. Motor grossly intact bilaterally Extremities: No LE edema Psych: Appropriate affect Const: General: No confusion Orientation/consciousness: No confusion Neuro: General: No confusion Results Labs 08/12/24 23:35 08/13/24 04:03 Labs: Laboratory Results - last 24 hr 08/12/24 08/13/24 08/13/24 23:35 01:20 04:03 MCV 91.8 MCH 30.7 MCHC 33.4 RDW 13.7 Plt Count 307 MPV 9.9 Immature Gran % (Auto) 0.8 H Neut % (Auto) 73.6 H Lymph % (Auto) 11.2 L [place] % (Auto) 10.6 Eos % (Auto) 3.3 Baso % (Auto) 0.5 Lymph # (Auto) 1.2 [place] # (Auto) 1.1 Eos # (Auto) 0.4 Baso # (Auto) 0.1 Abs Immat Gran (auto) 0.09 H Absolute Neuts (auto) 7.9 Absolute Nucleated RBC 0.000 Nucleated RBC % (auto) 0.0 PT 12.7 H INR 1.1 Anion Gap 13 13 Estim Creat Clear Calc 19.4 19.8 Estimated GFR 27 27 Random Glucose 111 89 Lactic Acid 1.4 Calcium 9.0 8.2 L D Magnesium 2.4 Total Bilirubin 0.4 Direct Bilirubin 0.1 AST 31 ALT 20 Alkaline Phosphatase 67 Troponin I High Sens 9.8 Total Protein 7.0 Albumin 3.3 L Lipase 63 TSH 7.76 H Free T4 1.07 Urine Color Yellow Urine Appearance Clear Urine pH 6.0 Ur Specific [place] 1.015 Urine Protein 300 (3+) H Urine Glucose (UA) Negative Urine Ketones Negative Urine Blood Negative Urine Nitrite Negative Ur Leukocyte Esterase Negative Urine RBC 0-2 Urine WBC 0-5 Ur Squamous Epith Cells 0-2 Urine Bacteria None Seen Hyaline Casts 3-5 Urine Opiates Screen Not Detected Ur Buprenorphine Scrn Not Detected Ur Oxycodone Screen Not Detected Urine Methadone Screen Not Detected Urine Fentanyl Screen Not Detected Ur Barbiturates Screen Not Detected Ur Phencyclidine Scrn Not Detected Ur Amphetamines Screen Not Detected U Benzodiazepines Scrn Not Detected Urine Cocaine Screen Not Detected U Marijuana (THC) Screen Not Detected COVID-19 (GABE) Negative COVID-19 Clin Com See Note Influenza Type A (MILANA) Negative Influenza Type B (MILANA) Negative Influenza A & B Note See Note Assessment and Plan (1) Vasovagal syncope: Status: Acute (2) Acute kidney injury superimposed on CKD: Status: Acute (3) Acute hyperkalemia: Status: Acute Plan Patient is an 89-year-old female with a past medical history significant for COPD on 2-3 L of oxygen at home, HTN, AFib on Eliquis, HLD, HFpEF, [place] 6 years ago and hypothyroidism with a recent admission for UTI and norovirus discharged 1.5 weeks ago, who presented to the ED today after a syncopal episode. Labs consistent with RONAK and hyperkalemia. Syncope sounds to be vasovagal by history. syncope, vasovagal - no sign of infection, WBC normal, UA neagtive, BP normal, no sepsis - EKG with NSR, trop negative - COVID/flu/RSV negative - check orthostatics given concurrent RONAK RONAK on CKD with hyperkalemia - likely due to recent norovirus infection, hypovolemic - cr 1.76 - potassium 5.2 - given 1L LR in ED - hold lasix - monitor BMP COPD, no acute exacerbation - continue home meds HTN - hold lasix as above - continue other home meds when appropriate a fib - continue metoptolol and eliquis HFpEF - hold lasix as above due to RONAK med rec not done upon admission full code VTE prophy: eliquis Pt with syncopal episode, likely vasovagal, complicated by RONAK and hyperkalemia requiring admission for at least 2 midnight stay for monitoring. Quality Stroke Does the patient have a stroke diagnosis?: No VTE Prior VTE?: No VTE Risk Level:: Medical - moderate - high VTE Device Contraindication: Treatment Not Indicated VTE Drug Contraindication: N/A - Med Ordered
[2024-08-13] MEDS: 0.9 % Sodium Chloride Flush 3 ML SYRINGE IVFLUSH ×2 (07:52→14:33)
[2024-08-13 09:22] LABS: Hematocrit 34.2 % (37.0-47.0); Hemoglobin 11.1 g/dl (12.0-16.0); Mean Corpuscular HGB Conc 32.5 g/dl (31.0-35.0); Mean Corpuscular Hemoglobin 30.5 pg (27.0-33.0); Mean Platelet Volume 10.1 fL (9.4-12.3); Platelet Count 294 X10*3/uL (160-400); Red Blood Count 3.64 X10*6/uL (4.20-5.50); Red Cell Distribution Width 13.8 % (11.0-16.0)
[2024-08-13] MEDS: amLODIPine Besylate 10 MG TABLET PO (09:35)
[2024-08-13] MEDS: Apixaban 2.5 MG TABLET PO (09:35)
[2024-08-13 09:36] LABS: Anion Gap 17 (12-20); Blood Urea Nitrogen 39 mg/dL (9-16); Calcium 8.1 mg/dL (8.4-10.2); Carbon Dioxide 27 mmol/L (22-29); Chloride 100 mmol/L (96-108); Creatinine Clr Calc Pharmacy 19.6; Estimated Glomerular Filt Rate 27; Glucose Random 87 mg/dL (60-115); Sodium 139 mmol/L (135-145)
--- NOTE | 2024-08-13 09:41 | PHA.MEDREC ---
Addendum entered by Alex Pritchard 08/13/24 09:50: reviewed Original Note: Pharmacy Consult ? Medication Reconciliation Pharmacy has completed the medication reconciliation. Utilized list from [facility] to confirm med list.
--- NOTE | 2024-08-13 10:17 | MHC.CM.PN ---
CM met with Patient and 2 family members at bedside; CM addressed IMM with Patient verbally (on contact precautions); the original has been given to her and a copy has been placed on the chart. Patient is a LTC Resident and [facility] bed hold @ [facility] @ [facility] and it is Patient's goal to return there once medically cleared for dc. Patient's Granddaughter /Kelley is the HCP and Patient will require BLS back to LTC.
--- NOTE | 2024-08-13 10:51 | PM.CNNEP ---
History of Present Illness Reason for Consult Consult date: 08/13/24 Reason for consult: RONAK and hyperkalemia Chief Complaint Chief complaint: RONAK, hyperkalwmia History of Present Illness Narrative: 89-year-old female with a past medical history significant for COPD on 2-3 L of oxygen at home, HTN, AFib on Eliquis, HLD, HFpEF, [place] 6 years ago and hypothyroidism with a recent admission for UTI and norovirus discharged 1.5 weeks ago, who presented to the ED today after a syncopal episode. She reports that this is a singular episode and occurred after her straining for a large bowel movement. She denies any head strike or injuries. She reports she has not had diarrhea in a few days Family at bedside Review of Systems Constitutional: Denies fever(s) and Denies weight loss Cardiovascular: Denies chest pain Respiratory: Denies cough and Denies hemoptysis Gastrointestinal: Denies abdominal pain, Denies diarrhea and Denies nausea Musculoskeletal: Denies back pain Denies focal weakness PMFSH Past Medical History Medical History Atrial fibrillation with RVR Adnexal mass Abdominal aortic aneurysm CKD (chronic kidney disease) stage 3, GFR 30-59 ml/min Myocardial infarction Hypothyroidism Hyperlipidemia COPD (chronic obstructive pulmonary disease) HTN (hypertension) PAF (paroxysmal atrial fibrillation) Family History Family History Father History of heart disease Mother History of heart disease Social History Social History Household Members: Other Housing: [facility] Housing Other:: [place] Do you presently have visiting nurse or other home services: No Alcohol intake: never Comment: sitter present Patient Tobacco Use Status: Never used Tobacco Smoked in Last 30 Days: No Use of substances other than those prescribed or required for medical reasons: No Have you been hit, kicked, punched, or otherwise hurt by someone within the past year? If so, by whom?: No Do you feel safe in your current relationship?: No Current Relationship Is there a partner from a previous relationship who is making you feel unsafe now?: No Are you made to feel afraid or neglected: No Advance Directives: Yes Advance Directives on File: Yes Advance Directives Date on File: 10/16/23 Do you have a plan to hurt others: No Plan Recently lost weight without trying: No Nutrition Risks: No Nutritional Risk Patient : No : No Poor oral hygiene: No service: No Current occupational status: retired Meds Allergies Allergy/AdvReac Type Severity Reaction Status Date / Time adhesive tape [Adhesive Tape] Allergy Unknown RASH Verified 08/12/24 22:53 codeine [Codeine] Allergy Unknown SWELLING Verified 08/12/24 22:53 Iodinated Contrast Media Allergy Unknown UNKNOWN Verified 08/12/24 22:53 [IV Dye, Iodine Containing] iodine [Iodine] Allergy Unknown UNKNOWN Verified 08/12/24 22:53 oxycodone [Percocet] Allergy Unknown unknown Verified 08/12/24 22:53 papaya [Papaya] Allergy Unknown HIVES Verified 08/12/24 22:53 pineapple [Pineapple] Allergy Unknown HIVES Verified 08/12/24 22:53 strawberry [[place]] Allergy Unknown HIVES Verified 08/12/24 22:53 Codeine Phosphate Allergy Unknown unknown Uncoded 07/28/24 14:25 Novocain Allergy Unknown unknown Uncoded 07/28/24 14:25 From Vicodin AdvReac Unknown NAUSEA & Uncoded 07/28/24 14:25 VOMITING Active Medications: Current Medications Acetaminophen (Acetaminophen 325 Mg Tablet) 975 mg PO Q6H PRN PRN Reason: Pain, Mild 1-3,fever,headache Amlodipine Besylate (Amlodipine Besylate 10 Mg Tablet) 10 mg PO DAILY [facility]; Protocol Last Admin: 08/13/24 09:35 Dose: 10 mg Apixaban (Apixaban 2.5 Mg Tablet) 2.5 mg PO BID [facility] Last Admin: 08/13/24 09:35 Dose: 2.5 mg Calcium Carbonate (Calcium Carbonate 750 Mg Tab.Chew) 750 mg PO Q4H PRN PRN Reason: Heartburn Magnesium Hydroxide (Milk Of Magnesia 30 Ml Oral.Susp) 30 ml PO DAILY PRN PRN Reason: Constipation Melatonin (Melatonin 3 Mg Tablet) 6 mg PO BEDTIME PRN PRN Reason: Insomnia Ondansetron HCl (Ondansetron Hcl 4 Mg/2 Ml Vial) 4 mg IVPUSH Q8H PRN PRN Reason: Nausea and Vomiting Polyethylene Glycol (Polyethylene Glycol 3350 17 Gm Powd.Pack) 17 gm PO DAILY PRN PRN Reason: Constipation Sodium Chloride (0.9 % Sodium Chloride Flush 3 Ml Syringe) 3 ml IVFLUSH [facility] Last Admin: 08/13/24 07:52 Dose: 3 ml Sodium Zirconium Cyclosilicate (Sodium Zirconium Cyclosilicate 5 Gm Powd.Pack) 5 gm PO ONCE ONE Stop: 08/13/24 11:01 Home Medications ?Medication ?Instructions ?Recorded ?Confirmed ?Last Taken ?Type gabapentin 300 mg capsule 300 mg PO BID Pain 07/13/20 08/13/24 12/20/22 History levothyroxine 50 mcg tablet 50 mcg PO SUTUTHSA@0600 07/13/20 08/13/24 12/20/22 History magnesium oxide 400 mg (241.3 mg 400 mg PO BEDTIME 07/13/20 08/13/24 12/20/22 History magnesium) tablet famotidine 20 mg tablet 20 mg PO BID 12/21/22 08/13/24 12/20/22 History montelukast 10 mg tablet 10 mg PO BEDTIME 12/21/22 08/13/24 12/20/22 History multivitamin 1 tab PO DAILY 12/21/22 08/13/24 12/20/22 History furosemide 20 mg tablet 60 mg PO DAILY 09/28/23 08/13/24 11/22/23 History aspirin 81 mg capsule 81 mg PO DAILY 10/27/23 08/13/24 Unknown History ipratropium 0.5 mg-albuterol 3 mg 3 ml inhalation Q4H PRN Wheezing 10/27/23 08/13/24 Unknown History (2.5 mg base)/3 mL nebulization soln acetaminophen 325 mg tablet 650 mg PO Q8H PRN Fever Or Pain 11/06/23 08/13/24 Unknown History levothyroxine 75 mcg tablet 75 mcg PO MOWEFR@0600 11/22/23 08/13/24 Unknown History bisacodyl 10 mg rectal suppository 10 mg [place] DAILY PRN Constipation 12/07/23 08/13/24 Unknown History magnesium hydroxide 400 mg/5 mL 30 ml PO DAILY PRN Constipation 12/07/23 08/13/24 Unknown History oral suspension (Milk of Magnesia) naloxone 4 mg/actuation nasal 4 mg intranasal Q3M PRN Opioid 12/07/23 08/13/24 Unknown History spray (Narcan) Overdose sodium phosphates 19 gram-7 118 ml LA DAILY PRN Constipation 12/07/23 08/13/24 Unknown History gram/118 mL enema (Fleet Enema) ascorbic acid (vitamin C) 500 mg 500 mg PO DAILY 03/06/24 08/13/24 Unknown History tablet diclofenac sodium 1 % topical gel 2 g topical DAILY 03/06/24 08/13/24 Unknown History docusate sodium 100 mg capsule 100 mg PO BID 03/06/24 08/13/24 Unknown History (Colace) ferrous sulfate 325 mg (65 mg 325 mg PO DAILY 03/06/24 08/13/24 Unknown History iron) tablet,delayed release guaifenesin 100 mg/5 mL oral liquid 200 mg PO Q4H 03/06/24 08/13/24 Unknown History mirtazapine 7.5 mg tablet 15 mg PO BEDTIME 03/06/24 08/13/24 Unknown History sennosides 8.6 mg tablet (senna) 8.6 mg PO DAILY PRN Constipation 07/29/24 08/13/24 Unknown History lisinopril 10 mg tablet 10 mg PO DAILY 08/13/24 08/13/24 Unknown History ondansetron HCl 4 mg tablet 4 mg PO Q6H PRN Nausea And Vomiting 08/13/24 08/13/24 Unknown History potassium chloride 20 mEq 40 meq PO DAILY 08/13/24 08/13/24 Unknown History tablet,extended release(part/cryst) Physical Exam Vital Signs: Last Vital Signs Temp 97.9 F 08/13/24 09:16 Pulse 67 08/13/24 09:16 Resp 20 08/13/24 09:16 BP 162/70 H 08/13/24 09:16 Pulse Ox 99 08/13/24 09:16 O2 Del Method Nasal Cannula 08/13/24 09:16 O2 Flow Rate 3 08/13/24 09:16 Oxygen Flow Rate 2 08/12/24 22:51 BMI result Body Mass Index 21.6 Awake. Comfortable. Neck is supple. Mucosa moist. Lungs bilateral scattered rhonchi. Heart S1-S2 heard no gallop. Abdomen soft. Extremities no edema. No involuntary movements. No myoclonus. Results Lab Results 08/13/24 08:51 08/13/24 08:51 Lab results: Chemistry 08/12/24 08/13/24 08/13/24 23:35 04:03 08:51 Sodium 136 138 139 Potassium 5.2 H D 5.2 H 5.0 Carbon Dioxide 27 25 27 BUN 44 H 42 H 39 H Creatinine 1.80 H 1.76 H 1.78 H Calcium 9.0 8.2 L D 8.1 L Hematology 08/12/24 08/13/24 23:35 08:51 WBC 10.7 8.0 Hgb 12.0 11.1 L Plt Count 307 294 Urinalysis 08/13/24 01:20 Urine Color Yellow Urine Appearance Clear Urine pH 6.0 Ur Specific [place] 1.015 Urine Protein 300 (3+) H Urine Glucose (UA) Negative Urine Ketones Negative Urine Blood Negative Urine Nitrite Negative Ur Leukocyte Esterase Negative Urine RBC 0-2 Urine WBC 0-5 Ur Squamous Epith Cells 0-2 Hyaline Casts 3-5 Assessment and Plan (1) Acute kidney injury: Status: Acute Plan RONAK most likely due to hypoperfusion. No evidence of obstruction based on CT scan. Urine sediments bland. Hyperkalemia due to combination of RONAK and potassium supplementation and PABLO i. Recommendations Discontinue potassium supplementation Hold Lasix and lisinopril. IV hydration with normal saline Keep intake more than output Expect renal recovery. Further workup will depend on the clinical course Procedures Date of Service Date of Service: 08/13/24
[2024-08-13] MEDS: Sodium Zirconium Cyclosilicate 5 GM POWD.PACK PO (11:02)
[2024-08-13] MEDS: hydrALAZINE HCl 25 MG TABLET PO ×2 (11:12→14:32)
[2024-08-13] MEDS: Lactated Ringers 1,000 ML 80 ML IVCONT (13:37)
--- NOTE | 2024-08-13 15:00 | HO.WOUND ---
Wound Consult: Initial 89yr old?female admitted to [facility] on 08/13/24 05:51 - See progress notes and H&P for detailed history.? Wound consult placed for Sacrum / buttock.? Patient agreeable to assessment and photo documentation.? Patient denies pain and tenderness to the buttock sacral area. Sacrum Etiology: ?Intact tissue Wound Bed: intact red pink tissue remains blanchable throughout Drainage / Odor: None Edges: ? irregular and attached Jeimy wound: Intact ? No Induration, Fluctuance or Warmth noted Pain: denies Goals of Treatment: ? Preventative foam dressing applied Recommendations: 1. Turn and Reposition every 2 hours and as needed for patient comfort.? Use pillows or wedges to support off loading positions. 2. Off Load all bony prominences with use of pillows and heel boots if needed.? Apply Preventative foams where needed. ? 3. Monitor for incontinence and moisture control, use barrier creams when needed for prevention and treatment. 4. Provide adequate and supplemental nutrition.? 5. Order low air loss mattress. 6. When applicable maintain blood glucose levels per Providers order. 7. Sacrum - Apply skin prep allow to dry. apply preventative sacral foam dressing. Peel back and assess Q shift change every 5 days and PRN. Re-consult wound care Nurse for wound deterioration or wound changes.
--- NOTE | 2024-08-13 16:03 | PM.EVENT ---
Event Note Date of Service: 08/13/24 Event Note: This patient is seen and examined by hospitalist service this morning seen and examined again 89-year-old female with a past medical history significant for COPD on 2-3 L of oxygen at home, HTN, AFib on Eliquis, HLD, HFpEF, [place] 6 years ago and hypothyroidism with a recent admission for UTI and norovirus discharged 1.5 weeks ago, who presented to the ED today after a syncopal episode. Labs consistent with RONAK and hyperkalemia. Physical exam and assessment and plan coordinated in APCs note, Agree with the plan in addition: ronak -sec to gi volume loss/meds ivf hold lasix mild hyperkalemia-added loklema. syncope ?vasovagal orthostasis negative tele seems fine continue to moniter Time Spent With Patient Time: Total time managing care of this patient today ____ minutes.
[2024-08-13] MEDS: Acetaminophen 325 MG TABLET 975 MG PO (17:09)
[2024-08-13] MEDS: guaiFENesin 200 MG/10 ML 10 ML LIQUID PO (17:13)
[2024-08-14] MEDS: Mirtazapine 15 MG TABLET PO (00:35)
[2024-08-14] MEDS: hydrALAZINE HCl 25 MG TABLET PO ×2 (00:35→07:24)
[2024-08-14 03:22] VITALS: BP 180/70; PULSE 66; RESP 17; TEMP 36.7; O2SAT 96
--- NOTE | 2024-08-14 06:37 | PC.NURSE ---
pt refusing her nighttime medications because they were brought in at 9:50pm, this RN explained to the patient that in the hospital the ordered times for regular medications sometimes change and that her medications are listed for 9pm and 10pm. Patient began swearing at this RN and stated I will not be taking any medication at this time get out of my room this RN explained the importance of the medication and documented refusal. Pts BP around 2330 was 190 systolic at this time patient agreeable to taking her PO blood pressure medication.
[2024-08-14] MEDS: guaiFENesin 200 MG/10 ML 10 ML LIQUID PO ×3 (07:21→13:35)
[2024-08-14] MEDS: Levothyroxine Sodium 75 MCG TABLET PO (07:21)
[2024-08-14 07:23] VITALS: BP 180/70; PULSE 66
[2024-08-14] MEDS: Aspirin Enteric Coated 81 MG TABLET.DR PO (07:23)
[2024-08-14] MEDS: Metoprolol Succinate ER 25 MG TAB.ER.24H PO (07:23)
[2024-08-14 07:24] VITALS: BP 180/70
[2024-08-14] MEDS: amLODIPine Besylate 10 MG TABLET PO (07:24)
[2024-08-14] MEDS: Ascorbic Acid 500 MG TABLET PO (07:24)
[2024-08-14] MEDS: Multivitamin TABLET 1 TAB PO (07:24)
[2024-08-14] MEDS: Ferrous Sulfate 324 MG TABLET.DR PO (07:24)
[2024-08-14] MEDS: Famotidine 20 MG TABLET PO (07:24)
[2024-08-14] MEDS: Apixaban 2.5 MG TABLET PO (07:24)
[2024-08-14] MEDS: 0.9 % Sodium Chloride Flush 3 ML SYRINGE IVFLUSH (07:25)
[2024-08-14] MEDS: Gabapentin 300 MG CAPSULE PO (07:25)
[2024-08-14] MEDS: Lactated Ringers 1,000 ML 80 ML IVCONT (07:34)
[2024-08-14 07:51] LABS: Anion Gap 11 (12-20); Blood Urea Nitrogen 31 mg/dL (9-16); Calcium 8.1 mg/dL (8.4-10.2); Carbon Dioxide 28 mmol/L (22-29); Chloride 102 mmol/L (96-108); Creatinine Clr Calc Pharmacy 24.1; Estimated Glomerular Filt Rate 34; Glucose Random 84 mg/dL (60-115); Potassium 4.7 mmol/L (3.3-5.1); Sodium 136 mmol/L (135-145)
--- NOTE | 2024-08-14 11:11 | MHC.CM.PN ---
PT MEDICALLY CLEARED FOR DC BACK TO LTC AT [facility], PT AGREEABLE TO PLAN AND IS A&O AND REQUESTED CM CONTACT HER HCP EMMETT TO LET HER KNOW, CM ATTEMPTED TO CONTACT EMMETT AT 11:10AM NUMBER ON FILE, NO ANSWER AND DETAILED MESSAGE LEFT, [facility] FOR BLS TRANSPORT AT 2PM. NSG/HOSPITALIST AWARE
--- NOTE | 2024-08-14 11:27 | P.CDIM_ITS ---
PROVIDER RESPONSE TEXT: To clarify, the appropriate diagnosis supported by the clinical indicators: Chronic respiratory failure: ch resp failure sec to copd on home oxygen QUERY TEXT: PHYSICIAN'S DOCUMENTATION REQUEST Date of Query: 08/14/2024 07:38 AM EST Patient Name: SUNSHINE CRESPO Admit Date: 08/13/2024 Dear Jemima Moraes MD, A review of the medical record indicates additional documentation may be needed. Please review below and update the documentation accordingly. Clinical Indicators: COPD on 2-3 liters O2 at home. COPD with no exacerbation this admit. Continue home medications. Placed on 2 liters [place] oxygen. Please clarify which of the following accurately represents the patient's respiratory status: Chronic respiratory failure possible, probable, suspected etc. O2 dependent Other (explain) Clinically unable to determine (explain) Thank you, Marialuisa Martinez, CCS, CDIS Use of terms such as suspected, likely, concern for, or probable (associated with a specific diagnosi s that is being evaluated, monitored, or treated as if it exists) are acceptable and can be coded in the inpatient se tting, when documented at the time of discharge. Please use your independent medical judgment in providing your response. THIS QUERY IS PART OF THE PERMANENT MEDICAL RECORD
[2024-08-14 12:00] VITALS: BP 170/56; PULSE 61; RESP 19; TEMP 36.3
--- NOTE | 2024-08-14 12:04 | PM.DS ---
DS: Providers Provider Date of Service: 08/14/24 Date of admission: 08/13/24 05:51 Date of discharge: 08/14/24 Primary care physician: Niels Israel MD Consults: 08/13/24 08:45 Consult to Nephrology Routine Consulting Provider: [facility] Reason for consultation: ronak/orthostasis/hyperkalemia/uncontrolled htn Has provider been notified: No 08/13/24 09:24 Consult to Wound Care Routine Reason for consultation: maceration to charlie buttocks Attending physician on discharge: Jemima Moraes Discharging clinician: Jemima Moraes DS: Diagnosis Discharge Diagnosis (1) Acute kidney injury: Status: Acute DS: Summary Hospital Course Hospital Course: HPI:89-year-old female with a past medical history significant for COPD on 2-3 L of oxygen at home, HTN, AFib on Eliquis, HLD, HFpEF, CA 6 years ago and hypothyroidism with a recent admission for UTI and norovirus discharged 1.5 weeks ago, who presented to the ED today after a syncopal episode. She reports that this is a singular episode and occurred after her straining for a large bowel movement. She denies any head strike or injuries. She reports she has not had diarrhea in a few days. She feels okay and is concerned why she is being admitted. She denies any chest pain, shortness of breath, abdominal pain or urinary symptoms including frequency, urgency or dysuria. Her history is conflicting between providers. Hospital course: 89y/o F with ch respiratory failure due to COPD on 2-3 L of oxygen at home, HTN, AFib on Eliquis, HLD, HFpEF, CA 6 years ago and hypothyroidism with a recent admission for UTI and norovirus discharged 1.5 weeks ago, who presented to the ED today after a syncopal episode. Labs consistent with RONAK and hyperkalemia. Ronak: in setting of diarrhae episode and bp meds:nephrology saw patient thought to be RONAK most likely due to hypoperfusion. Hyperkalemia due to combination of RONAK and potassium supplementation and PABLO i. given iv hydration and Hold Lasix and lisinopril . Discontinue potassium supplementation Hold Lasix and lisinopril for 1 week and moniter renal function and electrolytes ,consider outpatient nephrology followup for restarting lasix /lisinopril. continue amlodipine for htn ,adjusted hydralazine to 50 mg po bid for blood pressure control. moniter bmp in 1 week. mild hyperkalemia-improved with Lokelma, and potassium supplements stopped. Syncope: Likely thought to be vasovagal considering hpi. No new symptoms. Telemetry seems fine. Patient is encouraged for p.o. intake, Lasix and lisinopril on hold as above. Diarrhea improved. seen by wound care for sacrum area eval:please see wound care instructions below. Above management discussed with the patient in detail length she understand and in agreement with the above plan, time spent 40 minute. Time Attestation Total time managing care of this patient today: 40 mintues. Discharge Coordination Time (in mins): 40 min Quality: Safe Use of Opioids Does Pt have an Active Cancer Diagnosis on the Problem List?: No Quality: Stroke Does the patient have a stroke diagnosis?: No Physical Exam Vital Signs: Vital Signs: Last Vital Signs Temp 98.0 F 08/14/24 03:22 Pulse 66 08/14/24 07:23 Resp 17 08/14/24 03:22 BP 180/70 H 08/14/24 07:24 Pulse Ox 96 08/14/24 03:22 O2 Del Method Nasal Cannula 08/14/24 03:22 O2 Flow Rate 4 08/14/24 03:22 Oxygen Flow Rate 2 08/12/24 22:51 BMI result Body Mass Index 21.6 Appearance: Alert.? Oriented X3.? not in distress.? cvs: rrr, [id number]. res: clear to auscultation ,no rhonchii or wheezing abd: no rebound or guarding ,nt, bs present. ext pulses present , no cyanosis , no edema . neuro: axo3 , nonfocal. DS: Data Data Completed and Pending Labs on day of discharge: Laboratory Results - last 24 hr 08/14/24 07:07 Hold Purple Top SEE NOTE Sodium 136 Potassium 4.7 Chloride 102 Carbon Dioxide 28 Anion Gap 11 L BUN 31 H Creatinine 1.45 H Estim Creat Clear Calc 24.1 Estimated GFR 34 Random Glucose 84 Calcium 8.1 L Preliminary micro results at discharge 08/12/24 23:35 Blood Culture - Preliminary Blood - Venous No growth after 24 hours. 08/12/24 23:35 Blood Culture - Preliminary Blood - Venous No growth after 24 hours. Discharge Plan Discharge Anticipated Discharge Date/Time: 08/14/24 11:49 Patient Disposition: Xfer LTC Discharge Diagnosis: ronak , vasovagal episode Referrals: [facility] [Outside] - 1 Day (RESUMPTION OF LTC) Niels Israel MD [Primary Care Provider] - 1 Week Discharge Medications: Continued aspirin 81 mg Capsule 81 mg PO DAILY ipratropium-albuterol 0.5 mg-3 mg(2.5 mg base)/3 mL solution for nebulization 3 ml inhalation Q4H PRN (Reason: Wheezing) polyethylene glycol 3350 [Miralax] 17 gram/dose powder 17 g PO DAILY Qty: 119 0RF Rx Instructions: Mix with 6-8 oz of beverage of choice levothyroxine 75 mcg tablet 75 mcg PO MOWEFR@0600 magnesium hydroxide [Milk of Magnesia] 400 mg/5 mL Suspension 30 ml PO DAILY PRN (Reason: Constipation) Rx Instructions: for no BM in 3 days ( DO NOT GIVE WITH DIALYSIS RENAL /FAILURE) bisacodyl 10 mg Suppository 10 mg MA DAILY PRN (Reason: Constipation) Rx Instructions: For no BM if M.O.M ineffective Fleet Enema 19-7 gram/118 mL Enema 118 ml MA DAILY PRN (Reason: Constipation) Rx Instructions: For no BM &If Bisacodyl supp. ineffective (DO NOT GIVE WITH DIALYSIS/RENAL FAILURE) naloxone [Narcan] 4 mg/actuation [place],Non-Aerosol 4 mg INTRANASAL Q3M PRN (Reason: Opioid Overdose) Rx Instructions: spray 1 dose into ONE nostril; alternate nostrils w each dose until help arrives Eliquis 2.5 mg Tablet 2.5 mg PO BID Qty: 60 0RF metoprolol succinate [Toprol XL] 25 mg tablet extended release 24 hr 25 mg PO DAILY Qty: 30 0RF guaifenesin 100 mg/5 mL Liquid 200 mg PO Q4H ascorbic acid (vitamin C) 500 mg Tablet 500 mg PO DAILY docusate sodium [Colace] 100 mg Capsule 100 mg PO BID ferrous sulfate 325 mg (65 mg iron) Tablet,Delayed Release (Dr/Ec) 325 mg PO DAILY diclofenac sodium 1 % Gel 2 g TOPICAL DAILY Rx Instructions: Apply to bilateral shoulders mirtazapine 7.5 mg Tablet 15 mg PO BEDTIME sennosides [senna] 8.6 mg Tablet 8.6 mg PO DAILY PRN (Reason: Constipation) famotidine 20 mg tablet 20 mg PO BID montelukast 10 mg tablet 10 mg PO BEDTIME multivitamin Tablet 1 tab PO DAILY acetaminophen 325 mg Tablet 650 mg PO Q8H PRN (Reason: Fever Or Pain) ondansetron HCl 4 mg Tablet 4 mg PO Q6H PRN (Reason: Nausea And Vomiting) levothyroxine 50 mcg tablet 50 mcg PO SUTUTHSA@0600 gabapentin 300 mg capsule 300 mg PO BID magnesium oxide 400 mg (241.3 mg magnesium) tablet 400 mg PO BEDTIME Changed hydralazine 25 mg Tablet 50 mg PO BID Qty: 90 0RF Protocol: Hold for SBP< HOLD for SBP < : 90 Held furosemide 20 mg Tablet 60 mg PO DAILY Hold Instructions: Resume on 08/21/24. Rx Instructions: Give 80 mg for CHF lisinopril 10 mg Tablet 10 mg PO DAILY Hold Instructions: Resume on 08/21/24. Discontinued potassium chloride 20 mEq tablet,ER particles/crystals 40 meq PO DAILY Discharge Orders: Discharge Order (Routine); Ordered 08/14/24 Ordered By: Jemima Moraes Diet: Advance to usual diet Activity on Discharge: As tolerated Stand Alone Forms: Patient Portal Discharge page Print Language: Japanese Activity Restrictions/Additional Instructions: for sacrum area :intact red pink tissue remains blanchable throughout Turn and Reposition every 2 hours and as needed for patient comfort.? Use pillows or wedges to support off loading positions. Off Load all bony prominences with use of pillows and heel boots if needed.? Apply Preventative foams where needed. ? Monitor for incontinence and moisture control, use barrier creams when needed for prevention and treatment. Provide adequate and supplemental nutrition.? When applicable maintain blood glucose levels per Providers order. Sacrum - Apply skin prep allow to dry. apply preventative sacral foam dressing. Peel back and assess Q shift change every 5 days and PRN. Care Plan Goals: ronak in setting of diarrhae episode and bp meds:nephrology saw patient thought to be RONAK most likely due to hypoperfusion. Hyperkalemia due to combination of RONAK and potassium supplementation and PABLO i. plan:Discontinue potassium supplementation Hold Lasix and lisinopril for 1 week and moniter renal function and electrolytes ,consider outpatient nephrology followup for restarting lasix /lisinopril. continue amlodipine for htn ,adjusted hydralazine to 50 mg po bid for blood pressure control. moniter bmp in 1 week. seen by [facility] care for sacrum area eval:please see wound care instructions above. Health Concerns: as above. Plan of Treatment: roberta delatorre. Assessment: as above.
== END 2024-08-14 14:41 | DRG 683 ==
LOC: HO.ED 08-13 05:29 → HO.EDOVER 08-13 06:18 → HO.IMC 08-13 07:47
PROVIDERS: Admitting Provider Physician Assistant; Emergency Provider Emergency Medicine; PCP Family Medicine; Visit Provider Internal Medicine
DX: N17.9 Acute kidney failure, unspecified (principal); I13.0 Hypertensive heart and chronic kidney disease with heart failure and stage 1 through stage 4 chronic kidney disease, or unspecified chronic kidney disease; J96.10 Chronic respiratory failure, unspecified whether with hypoxia or hypercapnia; I50.32 Chronic diastolic (congestive) heart failure; E87.5 Hyperkalemia; N18.9 Chronic kidney disease, unspecified; E86.1 Hypovolemia; R55 Syncope and collapse; T50.3X5A Adverse effect of electrolytic, caloric and water-balance agents, initial encounter; J44.9 Chronic obstructive pulmonary disease, unspecified; E03.9 Hypothyroidism, unspecified; Z20.822 Contact with and (suspected) exposure to COVID-19; Z99.81 Dependence on supplemental oxygen; Z79.01 Long term (current) use of anticoagulants; Z79.82 Long term (current) use of aspirin; Z79.890 Hormone replacement therapy; Z79.899 Other long term (current) drug therapy
CPT/HCPCS: 36415; 74176; 80048; 80076; 80307; 81001; 83605; 83690; 83735; 84439; 84443; 84484; 85025; 85027; 85610; 87040; 87502; 87635; 93005; 97162; 99285; J7120

== ENCOUNTER → 2024-08-12 23:02 | Outpatient (BNV) | payer MEDICARE, MEDICAID, SELFPAY | PROVIDERS: Admitting Provider Physician Assistant; Emergency Provider Emergency Medicine; Visit Provider Internal Medicine Cardiovascular Disease | DX: I25.2 Old myocardial infarction (principal) | CPT/HCPCS: 93010 ==

== ENCOUNTER → 2024-08-12 23:03 | Outpatient (BNV) | payer MEDICARE, MEDICAID, SELFPAY | PROVIDERS: Emergency Provider Emergency Medicine; Visit Provider Radiology Diagnostic Radiology | DX: K57.30 Diverticulosis of large intestine without perforation or abscess without bleeding (principal); N83.201 Unspecified ovarian cyst, right side; I70.8 Atherosclerosis of other arteries | CPT/HCPCS: 74176 ==

== ENCOUNTER → 2024-08-13 05:51 | Outpatient (BNV) | payer MEDICARE, MEDICAID, SELFPAY | PROVIDERS: Admitting Provider Physician Assistant; Emergency Provider Emergency Medicine; Visit Provider Internal Medicine Hypertension Specialist | DX: N17.9 Acute kidney failure, unspecified (principal) | CPT/HCPCS: 99223 ==

== ENCOUNTER → 2024-08-13 05:51 | Outpatient (BNV) | payer MEDICARE, MEDICAID, SELFPAY | PROVIDERS: Admitting Provider Physician Assistant; Emergency Provider Emergency Medicine; PCP Family Medicine; Visit Provider Internal Medicine | DX: R55 Syncope and collapse (principal); N17.9 Acute kidney failure, unspecified; N18.9 Chronic kidney disease, unspecified; E87.5 Hyperkalemia | CPT/HCPCS: 99222; 99239; 99499 ==

== ENCOUNTER 2024-10-04 19:35 | Emergency (ER) | payer MEDICARE, MEDICAID, SELFPAY ==
[2024-10-04 19:44] VITALS: BP 158/66; PULSE 59; RESP 16; TEMP 36.4; O2SAT 95
[2024-10-04 19:46] VITALS: BP 170/60; PULSE 60; O2SAT 97
--- NOTE | 2024-10-04 20:40 | ED_ITS ---
History of Present Illness General Chief Complaint: Epistaxis Stated Complaint: NOSE BLEED, RESOLVED FROM SNF PER EMS Time Seen by Provider: 10/04/24 20:32 Source: patient Mode of arrival: ambulatory Limitations: no limitations History of Present Illness HPI Narrative: Dr. Opal Manuel patient comes to the emergency room from [facility]. According to the patient, she had a small amount of nosebleed which self resolved. According to the patient, her nurses panicked and sent her to the ER. Patient states that she has no complaints at all, patient states it was just a small nosebleed that she was able to control even before the ambulance got here. Patient states that she feels completely back to baseline Related Data Home Medications ?Medication ?Instructions ?Recorded ?Confirmed gabapentin 300 mg capsule 300 mg PO BID Pain 07/13/20 08/13/24 levothyroxine 50 mcg tablet 50 mcg PO SUTUTHSA@0600 07/13/20 08/13/24 magnesium oxide 400 mg (241.3 mg 400 mg PO BEDTIME 07/13/20 08/13/24 magnesium) tablet famotidine 20 mg tablet 20 mg PO BID 12/21/22 08/13/24 montelukast 10 mg tablet 10 mg PO BEDTIME 12/21/22 08/13/24 multivitamin 1 tab PO DAILY 12/21/22 08/13/24 furosemide 20 mg tablet 60 mg PO DAILY 09/28/23 08/13/24 aspirin 81 mg capsule 81 mg PO DAILY 10/27/23 08/13/24 ipratropium 0.5 mg-albuterol 3 mg 3 ml inhalation Q4H PRN Wheezing 10/27/23 08/13/24 (2.5 mg base)/3 mL nebulization soln acetaminophen 325 mg tablet 650 mg PO Q8H PRN Fever Or Pain 11/06/23 08/13/24 levothyroxine 75 mcg tablet 75 mcg PO MOWEFR@0600 11/22/23 08/13/24 bisacodyl 10 mg rectal suppository 10 mg MO DAILY PRN Constipation 12/07/23 08/13/24 magnesium hydroxide 400 mg/5 mL 30 ml PO DAILY PRN Constipation 12/07/23 08/13/24 oral suspension (Milk of Magnesia) naloxone 4 mg/actuation nasal 4 mg intranasal Q3M PRN Opioid 12/07/23 08/13/24 spray (Narcan) Overdose sodium phosphates 19 gram-7 118 ml MO DAILY PRN Constipation 12/07/23 08/13/24 gram/118 mL enema (Fleet Enema) ascorbic acid (vitamin C) 500 mg 500 mg PO DAILY 03/06/24 08/13/24 tablet diclofenac sodium 1 % topical gel 2 g topical DAILY 03/06/24 08/13/24 docusate sodium 100 mg capsule 100 mg PO BID 03/06/24 08/13/24 (Colace) ferrous sulfate 325 mg (65 mg 325 mg PO DAILY 03/06/24 08/13/24 iron) tablet,delayed release guaifenesin 100 mg/5 mL oral liquid 200 mg PO Q4H 03/06/24 08/13/24 mirtazapine 7.5 mg tablet 15 mg PO BEDTIME 03/06/24 08/13/24 sennosides 8.6 mg tablet (senna) 8.6 mg PO DAILY PRN Constipation 07/29/24 08/13/24 lisinopril 10 mg tablet 10 mg PO DAILY 08/13/24 08/13/24 ondansetron HCl 4 mg tablet 4 mg PO Q6H PRN Nausea And Vomiting 08/13/24 08/13/24 Previous Rx's ?Medication ?Instructions ?Recorded polyethylene glycol 3350 17 17 g PO DAILY #119 grams 10/29/23 gram/dose oral powder (Miralax) apixaban 2.5 mg tablet (Eliquis) 2.5 mg PO BID #60 tabs 12/10/23 metoprolol succinate 25 mg 25 mg PO DAILY #30 tabs 12/10/23 tablet,extended release 24 hr (Toprol XL) hydralazine 25 mg tablet 50 mg PO BID #90 tabs 08/14/24 Allergies Allergy/AdvReac Type Severity Reaction Status Date / Time adhesive tape [Adhesive Tape] Allergy Unknown RASH Verified 10/04/24 19:55 codeine [Codeine] Allergy Unknown SWELLING Verified 10/04/24 19:55 Iodinated Contrast Media Allergy Unknown UNKNOWN Verified 10/04/24 19:55 [IV Dye, Iodine Containing] iodine [Iodine] Allergy Unknown UNKNOWN Verified 10/04/24 19:55 oxycodone [Percocet] Allergy Unknown unknown Verified 10/04/24 19:55 papaya [Papaya] Allergy Unknown HIVES Verified 10/04/24 19:55 pineapple [Pineapple] Allergy Unknown HIVES Verified 10/04/24 19:55 strawberry [[place]] Allergy Unknown HIVES Verified 10/04/24 19:55 Codeine Phosphate Allergy Unknown unknown Uncoded 10/04/24 19:55 Novocain Allergy Unknown unknown Uncoded 10/04/24 19:55 From Vicodin AdvReac Unknown NAUSEA & Uncoded 10/04/24 19:55 VOMITING Review of Systems Review of Systems: Constitutional : No Weight loss, No Fever, No Chills, No Night Sweats, No Fatigue, No Malaise ENT/Mouth : No Hearing loss, No Ear Pain, No Nasal Congestion, No Sinus Pain, No Hoarseness, No sore throat, No Rhinorrhea, No Swallowing Difficulty, complaining of epistaxis which self-resolved Eyes: No Eye Pain, No Swelling, No Redness, No Foreign Body, No Discharge, No Vision Changes Cardiovascular : No Chest Pain, No SOB, No Dyspnea on Exertion, No Orthopnea, No Edema, No Palpitations Respiratory : No Cough, No Sputum, No Wheezing, No Smoke Exposure, No Dyspnea Gastrointestinal : No Nausea, No Vomiting, No Diarrhea, No Constipation, No abdominal Pain, No Hematochezia, No Melena Genitourinary : no irregular bleeding, No Dysuria, No Urinary Frequency, No Hematuria, No Urinary Incontinence, No Urgency, No Flank Pain, No Urinary Flow Changes, No Hesitancy Musculoskeletal : No joint pain, No Myalgias, No Joint Swelling Skin : No Skin Lesions, No rash Neuro : No Weakness, No Numbness, No Paresthesias, No Loss of Consciousness, No Dizziness, No Headache Psych : No Anxiety/Panic, No Depression, No SI/HI/AH/VH, No Social Issues, Heme/Lymph: No Bruising, No Bleeding,No Lymphadenopathy Endocrine : No Polyuria, No Polydipsia, No Temperature Intolerance [facility] Past Medical History Medical History Atrial fibrillation with RVR Adnexal mass Abdominal aortic aneurysm CKD (chronic kidney disease) stage 3, GFR 30-59 ml/min Myocardial infarction Hypothyroidism Hyperlipidemia COPD (chronic obstructive pulmonary disease) HTN (hypertension) PAF (paroxysmal atrial fibrillation) Family History Family History Father History of heart disease Mother History of heart disease Social History Social History Household Members: Other Housing: [facility] Other:: [place] Do you presently have visiting nurse or other home services: No Alcohol intake: never Comment: sitter present Patient Tobacco Use Status: Never used Tobacco Advance Directives: Yes Advance Directives on File: Yes Advance Directives Date on File: 10/16/23 service: No Current occupational status: retired Physical Exam Vital Signs: Vital Signs: Last Vital Signs Temp 97.6 F 10/04/24 19:44 Pulse 59 10/04/24 19:44 Resp 16 10/04/24 19:44 BP 158/66 H 10/04/24 19:44 Pulse Ox 95 10/04/24 19:44 O2 Del Method Nasal Cannula 10/04/24 19:44 O2 Flow Rate 2 10/04/24 19:44 BMI result Body Mass Index 20.0 Const: Other: Appearance: Alert. Oriented X3. No acute distress. Eyes: Pupils equal, round and reactive to light. ENT: Pharynx normal. normal bilateral nostrils, no epistaxis Neck: Normal inspection. Neck supple. No lymph nodes noted. No crepitus CVS: Normal heart rate and rhythm. Pulses normal. Normal S1 and S2 Respiratory: No respiratory distress. Breath sounds normal. No Wheezing. No rales Abdomen: Soft and nontender. No rigidity. No distention. Skin: Skin warm and dry. Normal skin color. Normal skin turgor. Extremities: No lower extremity edema. No Lacerations. No Rash Neuro: Oriented X 3. No motor deficit. No sensory deficit. Moving all extremities. No slurred speech. CN 2 through 12 grossly intact Psych: calm, cooperative, normal affect Discharge Plan Discharge Clinical Impression: Epistaxis Patient Disposition: Home, Self-Care Instructions: Nosebleed (ED) Additional Instructions: Please follow-up with your primary care physician tomorrow. If you have any worsening or new symptoms, please return to the emergency room or call 911 Prescriptions: No Action furosemide 20 mg Tablet 60 mg PO DAILY Rx Instructions: Give 80 mg for CHF aspirin 81 mg Capsule 81 mg PO DAILY ipratropium-albuterol 0.5 mg-3 mg(2.5 mg base)/3 mL solution for nebulization 3 ml inhalation Q4H PRN (Reason: Wheezing) polyethylene glycol 3350 [Miralax] 17 gram/dose powder 17 g PO DAILY Qty: 119 0RF Rx Instructions: Mix with 6-8 oz of beverage of choice levothyroxine 75 mcg tablet 75 mcg PO MOWEFR@0600 magnesium hydroxide [Milk of Magnesia] 400 mg/5 mL Suspension 30 ml PO DAILY PRN (Reason: Constipation) Rx Instructions: for no BM in 3 days ( DO NOT GIVE WITH DIALYSIS RENAL /FAILURE) bisacodyl 10 mg Suppository 10 mg MO DAILY PRN (Reason: Constipation) Rx Instructions: For no BM if M.O.M ineffective Fleet Enema 19-7 gram/118 mL Enema 118 ml MO DAILY PRN (Reason: Constipation) Rx Instructions: For no BM &If Bisacodyl supp. ineffective (DO NOT GIVE WITH DIALYSIS/RENAL FAILURE) naloxone [Narcan] 4 mg/actuation [place],Non-Aerosol 4 mg INTRANASAL Q3M PRN (Reason: Opioid Overdose) Rx Instructions: spray 1 dose into ONE nostril; alternate nostrils w each dose until help arrives Eliquis 2.5 mg Tablet 2.5 mg PO BID Qty: 60 0RF metoprolol succinate [Toprol XL] 25 mg tablet extended release 24 hr 25 mg PO DAILY Qty: 30 0RF guaifenesin 100 mg/5 mL Liquid 200 mg PO Q4H ascorbic acid (vitamin C) 500 mg Tablet 500 mg PO DAILY docusate sodium [Colace] 100 mg Capsule 100 mg PO BID ferrous sulfate 325 mg (65 mg iron) Tablet,Delayed Release (Dr/Ec) 325 mg PO DAILY diclofenac sodium 1 % Gel 2 g TOPICAL DAILY Rx Instructions: Apply to bilateral shoulders mirtazapine 7.5 mg Tablet 15 mg PO BEDTIME sennosides [senna] 8.6 mg Tablet 8.6 mg PO DAILY PRN (Reason: Constipation) famotidine 20 mg tablet 20 mg PO BID montelukast 10 mg tablet 10 mg PO BEDTIME multivitamin Tablet 1 tab PO DAILY acetaminophen 325 mg Tablet 650 mg PO Q8H PRN (Reason: Fever Or Pain) ondansetron HCl 4 mg Tablet 4 mg PO Q6H PRN (Reason: Nausea And Vomiting) lisinopril 10 mg Tablet 10 mg PO DAILY hydralazine 25 mg Tablet 50 mg PO BID Qty: 90 0RF Protocol: Hold for SBP< HOLD for SBP < : 90 levothyroxine 50 mcg tablet 50 mcg PO SUTUTHSA@0600 gabapentin 300 mg capsule 300 mg PO BID magnesium oxide 400 mg (241.3 mg magnesium) tablet 400 mg PO BEDTIME Print Language: [place]
[2024-10-04 21:01] VITALS: BP 185/55; PULSE 62; RESP 16; TEMP 36.2; O2SAT 95
[2024-10-04 23:56] VITALS: BP 185/55; PULSE 62; RESP 16; TEMP 36.2; O2SAT 95
== END 2024-10-05 00:10 | disposition home or self-care (01) ==
PROVIDERS: Emergency Provider Emergency Medicine
DX: R04.0 Epistaxis (principal); I10 Essential (primary) hypertension; I48.0 Paroxysmal atrial fibrillation; Z79.82 Long term (current) use of aspirin; Z79.899 Other long term (current) drug therapy; Z79.01 Long term (current) use of anticoagulants
CPT/HCPCS: 99282; 99284